=== PATIENT | female | born 1945 | race Caucasian/White ===

== ENCOUNTER 2023-02-24 11:30 | Outpatient (OUT) | payer MEDICARE, SELFPAY ==
--- NOTE | 2023-02-24 11:34 | XR_ITS ---
The [address] [address] Patient Name: YORDY DREW MRN: [id number] date: 1945 Sex: F Assigned Patient Location: [facility] Current Patient Location: [facility] Accession/Order Number: [id number] Exam Date: 02/24/2023 11:55 Report Date: 02/24/2023 12:24 At the request of: LITA HANSEN Procedure: XR DEXA axial skeleton DEXA bone density study CLINICAL: 77 years Female. Evaluate bone mineral density. The bone density study was assessed by dual-energy x-ray absorptiometry. Areas examined in AP projection. The test results are expressed in T-Score, which is used for diagnosis for osteoporosis, and reflects the standard deviations from the mean peak bone mineral density in young adults. Additional information regarding the Z-Score reflects the standard deviations from the mean peak bone mineral density for age- and gender-matched subjects. Lumbar Spine (L1-L4): BMD (gm/cm2): 1.129 T-Score: -0.4 Left Hip (total): BMD (gm/cm2): 0.897 T-Score: -0.9 Left Hip (Neck): BMD (gm/cm2): 0.841 T-Score: -1.4 XR/XR DEXA axial skeleton IMPRESSION: 1. Bone mineral density by WHO criteria: Osteopenia. Fracture risk increased. REFERENCE: In postmenopausal women and males 50 or over, comparison of the measured bone mineral density with the average value in young normal subjects (the T-Score) has been found to be useful in assessing fracture risk. Fracture risk approximately doubles for each 1.0 standard deviation (SD) that the individuals hip or spine bone mineral density is below the average value of young normal subjects. The World Health Organization (WHO) has provided the following definitions: 1. Normal: T-Score within one standard deviation of young adult mean value (T-Score at or above -1.0). 2. Osteopenia (low bone mass): T-Score more than one standard deviation below the young adult mean but less than 2.5 standard deviations below the young adult mean (T-Score between -1.0 and -2.5). 3. Osteoporosis: T-Score at or more than 2.5 standard deviations below the young adult mean (T-Score at or less than -2.5). 4. Severe Osteoporosis (established osteoporosis): T-Score more than 2.5 standard deviations below young adult and one or more fragility fracture (T-Score less than -2.5 plus fragility fractures). Electronically authenticated by: BARBARA PETERSEN Date: 02/24/2023 12:24
== END 2023-02-24 11:31 | disposition home or self-care (01) ==
LOC: RAD 11:30
PROVIDERS: PCP Family Medicine; Visit Provider Internal Medicine Rheumatology
DX: M81.0 Age-related osteoporosis without current pathological fracture (principal)
CPT/HCPCS: 77080

== ENCOUNTER 2023-03-07 13:09 | Outpatient (OUT) | payer MEDICARE, SELFPAY ==
[2023-03-07 13:36] LABS: Basophils Percent Auto 0.8 % (0.2-2.0); Eosinophils Absolute Auto 0.1 10^3/uL (0.0-0.7); Eosinophils Percent Auto 2.6 % (0.9-7.0); Hematocrit 38.5 % (36.0-48.0); Hemoglobin 12.8 g/dL (12.0-16.0); Immature Granulocytes Abs Auto 0.01 10^3/uL (0.00-0.03); Immature Granulocytes Pct Auto 0.3 % (0.0-0.5); Lymphocytes Absolute Auto 1.1 10^3/uL (1.2-3.8); Lymphocytes Percent Auto 27.9 % (20.5-60.0); Mean Corpuscular HGB Conc 33.2 g/dL (29.9-35.2); Mean Corpuscular Hemoglobin 30.1 pg (26.7-34.0); Mean Corpuscular Volume 90.6 fL (81.0-99.0); Mean Platelet Volume 9.3 fL (9.5-13.5); Monocytes Absolute Auto 0.4 10^3/uL (0.3-0.8); Monocytes Percent Auto 10.4 % (1.7-12.0); Neutrophils Absolute Auto 2.2 10^3/uL (1.4-6.5); Platelet Count 267 10^3/uL (150-450); Red Blood Count 4.25 10^6/uL (4.20-5.40); Red Cell Distribution Width 12.2 % (11.0-15.0); White Blood Count 3.8 10^3/uL (4.0-11.0)
[2023-03-07 13:55] LABS: Alanine Aminotransferase 16 U/L (14-59); Albumin Globulin Ratio 0.9; Albumin Level 3.4 g/dL (3.4-5.0); Alkaline Phosphatase 65 U/L (46-116); Aspartate Amino Transferase 20 U/L (15-37); BUN Creatinine Ratio 15.5; Bilirubin Total 0.6 mg/dL (0.2-1.0); Calcium 8.9 mg/dL (8.5-10.1); Carbon Dioxide 29.8 mmol/L (21.0-32.0); Chloride 105 mmol/L (98-107); Estimated GFR (African America >60 (>=60); Estimated GFR (Non-African Ame >60 (>=60); Globulin 3.6 g/dL; Glucose 103 mg/dL (74-106); Potassium 3.8 mmol/L (3.5-5.1); Sodium 141 mmol/L (136-145)
== END 2023-03-07 13:10 | disposition home or self-care (01) ==
PROVIDERS: PCP Family Medicine
DX: M15.0 Primary generalized (osteo)arthritis (principal); M81.0 Age-related osteoporosis without current pathological fracture; Z79.899 Other long term (current) drug therapy
CPT/HCPCS: 36415; 80053; 85025

== ENCOUNTER 2023-06-06 15:21 | Outpatient (OUT) | payer MEDICARE, SELFPAY ==
--- NOTE | 2023-06-06 15:24 | MM_ITS ---
Patient Name: YORDY DREW MR#: [id number] : 1945 Exam Date: 06/06/2023 Ordering Doctor: DR Eric Porter . RADIOLOGY REPORT PROCEDURE: MM TOMOSYNTHESIS SCREENING BI COMPARISON: MG MAMM SCREEN 3D KRISTINA CAD, 05/11/2022. MG MAMM SCREEN 3D KRISTINA CAD, 09/30/2020. MG MAMM LT DIAG FU, 09/13/2019. MG MAMM KRISTINA SCRN W CAD DIG, 02/21/2013. INDICATIONS: Screening Calculator Name NCI Breast Cancer Risk Assessment Tool 5 Year Breast Cancer Risk 3.10% Lifetime Breast Cancer Risk 5.90% Personal Breast Cancer No Personal Ovarian Cancer No Treatments None Family Cancers Mother with breast cancer at age 80. LOCATION: The [facility] BREAST COMPOSITION: Scattered areas fibroglandular density. FINDINGS: DIAGNOSTIC CATEGORY 1--NEGATIVE. RIGHT BREAST: No significant suspicious finding. No significant change has occurred. LEFT BREAST: No significant suspicious finding. No significant change has occurred. RECOMMENDATIONS: ROUTINE MAMMOGRAM AND CLINICAL EVALUATION IN 12 MONTHS. PLEASE NOTE: A NORMAL MAMMOGRAM DOES NOT EXCLUDE THE POSSIBILITY OF BREAST CANCER. A CLINICALLY SUSPICIOUS PALPABLE LUMP SHOULD BE BIOPSIED. Dictated by: Robbie Hoskins M.D. on 06/07/2023 at 12:50 Approved by: Robbie Hoskins M.D. on 06/07/2023 at 13:00
== END 2023-06-06 15:22 | disposition home or self-care (01) ==
LOC: MAMMO 15:21
PROVIDERS: PCP Family Medicine; Visit Provider Family Medicine
DX: Z12.31 Encounter for screening mammogram for malignant neoplasm of breast (principal); Z80.3 Family history of malignant neoplasm of breast
CPT/HCPCS: 77063; 77067

== ENCOUNTER 2023-06-09 09:20 | Outpatient (OUT) | payer MEDICARE, SELFPAY ==
[2023-06-09 09:49] LABS: Basophils Percent Auto 1.1 % (0.2-2.0); Eosinophils Absolute Auto 0.2 10^3/uL (0.0-0.7); Eosinophils Percent Auto 6.4 % (0.9-7.0); Hematocrit 38.1 % (36.0-48.0); Hemoglobin 12.3 g/dL (12.0-16.0); Immature Granulocytes Abs Auto 0.01 10^3/uL (0.00-0.03); Immature Granulocytes Pct Auto 0.3 % (0.0-0.5); Lymphocytes Percent Auto 27.5 % (20.5-60.0); Mean Corpuscular HGB Conc 32.3 g/dL (29.9-35.2); Mean Corpuscular Hemoglobin 29.6 pg (26.7-34.0); Mean Corpuscular Volume 91.8 fL (81.0-99.0); Mean Platelet Volume 9.5 fL (9.5-13.5); Monocytes Absolute Auto 0.4 10^3/uL (0.3-0.8); Monocytes Percent Auto 11.2 % (1.7-12.0); Neutrophils Absolute Auto 1.9 10^3/uL (1.4-6.5); Neutrophils Percent Auto 53.5 % (43.0-75.0); Platelet Count 241 10^3/uL (150-450); Red Blood Count 4.15 10^6/uL (4.20-5.40); Red Cell Distribution Width 11.9 % (11.0-15.0); White Blood Count 3.6 10^3/uL (4.0-11.0)
[2023-06-09 10:14] LABS: Estimated Average Glucose 108 mg/dL; Glycohemoglobin A1C 5.4 % (4.5-6.2)
[2023-06-09 10:18] LABS: Alanine Aminotransferase 23 U/L (14-59); Albumin Globulin Ratio 0.9; Albumin Level 3.2 g/dL (3.4-5.0); Alkaline Phosphatase 61 U/L (46-116); Anion Gap 8.3; Aspartate Amino Transferase 20 U/L (15-37); BUN Creatinine Ratio 19.3; Bilirubin Total 0.5 mg/dL (0.2-1.0); Calcium 8.8 mg/dL (8.5-10.1); Carbon Dioxide 30.7 mmol/L (21.0-32.0); Chloride 102 mmol/L (98-107); Chol HDL Ratio 2.5; Cholesterol 180 mg/dL (<=200); Estimated GFR (African America >60 (>=60); Estimated GFR (Non-African Ame >60 (>=60); Free T3 2.47 pg/mL (2.18-3.98); Globulin 3.5 g/dL; Glucose 98 mg/dL (74-106); HDL Cholesterol 71 mg/dL (40-60); Sodium 137 mmol/L (136-145); Total Protein 6.7 g/dL (6.4-8.2); Triglycerides 79 mg/dL (<=150); VLDL CHOLESTEROL 15.8 mg/dL
== END 2023-06-09 09:21 | disposition home or self-care (01) ==
LOC: LAB 09:21
PROVIDERS: PCP Family Medicine; Visit Provider Family Medicine
DX: E78.00 Pure hypercholesterolemia, unspecified (principal); E03.9 Hypothyroidism, unspecified; G47.00 Insomnia, unspecified; R73.09 Other abnormal glucose; D64.9 Anemia, unspecified; E55.9 Vitamin D deficiency, unspecified; M15.0 Primary generalized (osteo)arthritis; M81.0 Age-related osteoporosis without current pathological fracture; Z79.899 Other long term (current) drug therapy
CPT/HCPCS: 36415; 80053; 80061; 82306; 83036; 83540; 84436; 84443; 84481; 85025

== ENCOUNTER 2023-09-01 09:08 | Outpatient (OUT) | payer MEDICARE, SELFPAY ==
--- OUTSIDE RECORDS SUMMARY | 2023-09-01 09:17 | XMS_ITS | CCD ---
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 Name Role Phone Manoj Forbes Unavailable Sydney Erickson II Unavailable MD Gisella Porter Primary Care Provider [phone] MD Sydney Erickson II Attending Provider MD Gisella Porter Primary Care Provider [phone] MD Sydney Erickson II Attending Provider [phone] KENC, DR HOOVER Admitting Unavailable MISC, DR HOOVER Attending Unavailable HOY ., DR OBANDO Primary Care Unavailable MISC, DR HOOVER Consulting Unavailable HOY ., DR OBANDO Admitting Unavailable HOY ., DR OBANDO Attending Unavailable HOY ., DR OBANDO Primary Care Unavailable HOY ., DR OBANDO Consulting Unavailable YORDAN, DR VIDYA Strong Consulting Unavailable HOY ., DR OBANDO Admitting Unavailable HOY ., DR OBANDO Attending Unavailable HOY ., DR OBANDO Primary Care Unavailable HOY ., DR OBANDO Consulting Unavailable HOY ., DR OBANDO Admitting Unavailable HOY ., DR OBANDO Attending Unavailable HOY ., DR OBANDO Primary Care Unavailable HOY ., DR OBANDO Consulting Unavailable ALBERTO, DR FUNMILAYO Ramirez Consulting Unavailable TYRONE, DR LONDON Attending Unavailable MISC, DR HOOVER Admitting Unavailable MISC, DR HOOVER Primary Care Unavailable MISC, DR HOOVER Consulting Unavailable SYDNEY ERICKSON Admitting Unavailable SYDNEY ERICKSON Attending Unavailable PEDRO PABLO ., DR OBANDO Primary Care Unavailable SYDNEY ERICKSON Consulting Unavailable MISC, DR HOOVER Admitting Unavailable MISC, DR HOOVER Attending DR GISELLA Zarate Primary Care Unavailable [facility] [place]ing Unavailable MD Gisella Porter Primary Care Provider [phone] MD Manoj Forbes Attending Provider Daryl Austin Primary Care Provider UnavailFUNMILAYO Carrillo Attending Unavailable MD Ivette Taylor Attending Provider MD Gisella Porter Primary Care Provider [phone] MD Sydney Erickson II Attending Provider Georgina FREGOSO, [place] Attending Unavailabl Gisella Han Primary Care Unavailable Georgina FREGOSO, [place] Admitting UnavailGisella Tinajero Primary Care Unavailable Ivette Taylor Admitting Unavailable Ivette Taylor Attending Unavailable Georgina FREGOSO, [place] Attending UnavailSydney Dominguez II Admitting UnavailGisella Tinajero Primary Care Unavailable Sydney Erickson II Admitting Unavailjade Erickson II, [place] Attending UnavailGisella Tinajero Primary Care Unavailable Manoj Forbes Admitting Unavailable Manoj Forbes Attending Unavailable Gisella Porter Primary Care Unavailable Georgina FREGOSO, [place] Attending UnavailGisella Tinajero Primary Care Unavailable Sydney Erickson II Admitting UnavailIvette Treadwell Unavailable Allergies Allergy Classification Reported Allergen(s) Allergy Type Date of Onset Reaction(s) Facility (20 sources) Ciprofloxacin Drug Allergy 3 Rash, Unknown [facility] (20 sources) NITROFURANTOIN, MACROCRYSTALS / Nitrofurantoin, Monohydrate Drug Allergy 3 Other: See Comments, GI Upset [facility] (20 sources) Sulfamethoxazole / Trimethoprim Drug Allergy 3 Other: See Comments, Rash [facility] (3 sources) Ciprofloxacin; Translations: [Cipro] Drug Allergy 3 Unknown [facility] (3 sources) Sulfamethoxazole / Trimethoprim; Translations: [Bactrim] Drug Allergy 3 Unknown [facility] (6 sources) Nitrofurantoin; Translations: [nitrofurantoin] Drug Allergy 1 [facility] (6 sources) Sulfamethoxazole; Translations: [sulfamethoxazole] Drug Allergy 1 [facility] (6 sources) Trimethoprim; Translations: [trimethoprim] Drug Allergy 1 [facility] (1 source) Nitrofurantoin Drug Allergy 3 [facility] (1 source) Ciprofloxacin Drug Allergy 3 [facility] Medications Current Medications Medication Drug Class(es) Dates Sig (Normalized) Sig (Original) acetaminophen 500 mg oral tablet (5 sources) Start: 12-01-2021 take 2 tablets by mouth every eight hours for pain Acetaminophen 500 MG 2 tablets for pain Orally every 8 hrs for 30 days MED TO BED UPON DISCHARGE DOS: 12/21/2021 Nov, Active amitriptyline hydrochloride 50 mg oral tablet (20 sources) Tricyclic Antidepressant Start: 09-21-2022 take 50 mg by mouth once daily in the evening Amitriptyline Active 50 MG PO Every evening September 21, 2022 12:00am Start: 04-29-2021 End: 09-21-2022 take 50 mg by mouth once daily at bedtime Amitriptyline Discontinued 50 MG PO Daily at bedtime April 29, 2021 12:00am September 21, 2022 10:01am Comment on above: Take 50 mg by mouth once daily. ascorbic acid 500 mg oral tablet (1 source) Vitamin C Start: 02-03-20 take 1 tablet by mouth every twenty-four hours Vitamin C 500 MG 1 tablet Orally Once a day for 14 day(s) Jan, Active celecoxib 200 mg oral capsule (8 sources) Nonsteroidal Anti-inflammatory Drug Start: 12-02-19 22 take 1 capsule by mouth every twelve hours Celecoxib 200 MG 1 capsule with food Orally Twice a day for 30 day(s) MED TO BED UPON DISCHARGE DOS: 12/21/2021 Nov, Active dicyclomine hydrochloride 20 mg oral tablet (20 sources) Anticholinergic Start: 01-13-20 15 take 1 tablet by mouth every twelve hours Dicyclomine HCl 20 mg 1 tablet Orally bid for 90 days Dec, Active Comment on above: Take 20 mg by mouth twice daily. docusate sodium 50 mg / sennosides, senior care 8.6 mg oral tablet (5 sources) Start: 12-02-19 take 2 tablets by mouth every twenty-four hours Senokot S 8.6-50 MG 2 tablets Orally Once a day for 30 day(s) MED TO BED UPON DISCHARGE DOS: 12/21/2021 Nov, Active etodolac 500 mg oral tablet (18 sources) Nonsteroidal Anti-inflammatory Drug Start: 04-29-20 take 500 mg by mouth twice daily Etodolac Active 500 MG PO Twice daily April 29, 2021 12:00am Start: 04-29-2021 take 500 mg by mouth once terrance y Etodolac Active 500 MG PO Daily April 29, 2021 12:00am ferrous sulfate 325 mg oral tablet (7 sources) Start: 02-02-2022 take 1 tablet by mouth every eight hours Iron 325 (65 Fe) MG 1 tablet Orally Three times a day for 30 day(s) Jan, Active levothyroxine sodium 0.112 mg oral tablet (20 sources) l-Thyroxi ne Start: 04-29-2021 take 112 ug by mouth once daily Levothyroxine Active 112 MCG PO Daily April 29, 2021 12:00am take 1 tablet by kathie th once daily in the morning Levothyroxine Sodium 112 MCG 1 tablet on an empty stomach in the morning Orally Once a day for 30 day(s) Active Comment on above: Take 112 mcg by mout h once daily. rosuvastatin calcium 5 mg oral tablet (20 sources) HMG-CoA Reductase Inhibitor Start: take 5 mg by mouth once daily at bedtime Rosuvastatin Active 5 MG PO Daily at bedtime April 29, 2021 12:00am Comment on above: Take 5 mg by mouth o nce daily. Tramadol & Dietary Manage Prod 50 MG (14 sources) Tramadol & Dieta ry Manage Prod 50 MG as directed Orally prn Active Tramadol & Dieta ry Manage Prod 50 MG as directed Orally Active Vitamin D3 1000 UNIT (14 sources) take 1 tablet by kathie th once daily Vitamin D3 1000 UNIT 1 tablet Orally Once a day for 30 day(s) Active Completed/Discontinued Medications Medication Drug Class(es) Dates Sig (Normalized) Sig (Original) aspirin 81 mg oral tablet (8 sources) Platelet Aggregation Inhibitor, Nonsteroidal Anti-inflammatory Drug Start: 12-01-2021 take 1 tablet by mouth twice daily Aspirin 81 MG 1 tablet Orally twice a day for 35 days MED TO BED UPON DISCHARGE DOS: 12/21/2021 Nov, Not-Taking cefadroxil 500 mg oral capsule (8 sources) Cephalosporin Antibacterial Start: 12-01-2021 take 1 capsule by mouth every twelve hours Cefadroxil 500 MG 1 tablet Orally every 12 hrs for 7 days MED TO BED UPON DISCHARGE DOS: 12/21/2021 Nov, Not-Taking cholecalciferol 0.125 mg oral tablet (6 sources) Vitamin D Start: 04-29-2021 take 1 tablet by mouth once daily cholecalciferol (VITAMIN D3) 5,000 unit tab Take 5,000 Units by mouth once daily. 0 04/29/2021 Active Start: 04-29-2021 take 1 tablet by kathie th once daily Cholecalciferol (Vitamin D3) (Vitamin D3) 125 mcg (5,000 unit) Tablet Active 125 MCG PO Daily April 29, 2021 12:00am Comment on above: Take 5,000 Units by mouth once daily. morphine sulfate 15 mg extended release oral tablet (8 sources) Opioid Agonist Start: 2 take 1 tablet by mouth every twelve hours for pain Morphine Sulfate ER 15 MG 1 tablet for breakthrough pain only Orally every 12 hrs for 5 days MED TO BED UPON DISCHARGE DOS: 12/21/2021 Nov, Not-Taking omeprazole 20 mg delayed release oral capsule (5 sources) Proton Pump Inhibitor Start: End: 2 take 20 mg by mouth once daily Omeprazole Discontinued 20 MG PO Daily April 29, 2021 12:00am December 07, 2021 1:17pm ondansetron 8 mg oral tablet (8 sources) Serotonin-3 Receptor Antagonist Start: 2 take 1 tablet by mouth three times daily as needed for nausea Ondansetron HCl 8 MG 1 tablet as needed for nausea Orally three times a day for 10 days MED TO BED UPON DISCHARGE DOS: 12/21/2021 Nov, Not-Taking oxyCODONE hydrochloride 5 mg oral tablet (8 sources) Opioid Agonist Start: 2 take 1 tablet by mouth every four hours as needed for pain oxyCODONE HCl 5 MG 1 tablet as needed for pain Orally every 4 hrs for 10 days MED TO BED UPON DISCHARGE DOS: 12/21/2021 Nov, Not-Taking polyethylene glycol 3350 [id number] mg powder for oral solution (8 sources) Osmotic Laxative Start: 2 MiraLax 17 GM 1 packet mixed with 8 ounces of fluid Orally Once a day for 7 days MED TO BED UPON DISCHARGE DOS: 12/21/2021 Nov, Not-Taking traMADol hydrochloride 50 mg oral tablet (18 sources) Opioid Agonist Start: 2 take 1 tablet by mouth every six hours as needed for pain traMADol HCl 50 MG 1 tablet as needed for pain Orally every 6 hrs for 10 days Dec, Not-Taking Start: 04-29-2021 End: 09-21-2022 take 50 mg by mouth twice daily Tramadol Discontinued 50 MG PO Twice daily April 29, 2021 12:00am September 21, 2022 10:01am triamcinolone acetonide 40 mg/ml injectable suspension (19 sources) Corticosteroid Start: 12-07-2022 Kenalog-40 Nov, 20 mg Start: 08-13-2021 Kenalog -40 mg Jul, 120 mg Problems Active Problems Problem Classification Problem Date Documented Da te Episodic/Chronic Deficiency and other anemia (1 source) Anemia, unspecified; Translations: [ANEMIA UNSPECIFIED] Onset: 06-11-2022 Episodic Deficiency and other anemia (3 sources) Iron deficiency anemia; Translations: [Iron deficiency anemia, unspecified] Episodic Diabetes mellitus without complication (1 source) Other abnormal glucose; Translations: [OTHER ABNORMAL GLUCOSE] Onset: 06-11-2022 Episodic Disorders of lipid metabolism (5 sources) Pure hypercholesterolemia, unspecified; Translations: [Hyperlipidemia, unspecified] Onset: 06-06-2022 Chronic Hemorrhoids (3 sources) Unspecified hemorrhoids; Translations: [Hemorrhoids] Onset: 10-27-2022 Episodic Nutritional deficiencies (1 source) Vitamin D deficiency, unspecified; Translations: [VITAMIN D DEFICIENCY UNSPECIFIED] Onset: 06-11-2022 Chronic Osteoarthritis (20 sources) Osteoarthritis of knee; Translations: [Unilateral primary osteoarthritis, left knee] Onset: 08-13-2021 Resolved: 02-02-2022 Chronic Osteoporosis (17 sources) Primary osteoporosis; Translations: [Age-related osteoporosis without current pathological fracture] Onset: 11-10-2021 Resolved: 02-02-2022 Chronic Other aftercare (6 sources) Patient encounter status; Translations: [Aftercare following joint replacement surgery] Chronic Other aftercare (5 sources) Other group home (current) drug therapy; Translations: [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 THERAPY] Onset: 11-10-2021 Resolved: 02-02-2022 Episodic Other bone disease and musculoskeletal deformities (1 source) Juvenile osteochondrosis of pelvis; 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] Onset: 08-28-2022 Chronic Other connective tissue disease (14 sources) History of repair of hip joint; Translations: [Presence of right artificial hip joint] Chronic Other connective tissue disease (13 sources) History of total replacement of right hip joint; Translations: [Presence of right artificial hip joint] Chronic Other connective tissue disease (1 source) Presence of right artificial hip joint Onset: 08-13-2021 Resolved: 08-13-2021 Chronic Other connective tissue disease (8 sources) History of right total knee replacement; Translations: [Presence of right artificial knee joint] Chronic Other connective tissue disease (2 sources) Presence of right artificial knee joint Onset: 01-05-2022 Resolved: 02-02-2022 Chronic Other connective tissue disease (6 sources) Artificial knee joint present; Translations: [Presence of right artificial knee joint] Chronic Other connective tissue disease (2 sources) Trigger finger, left ring finger Episodic Other connective tissue disease (2 sources) Pain in left hand Episodic Other gastrointestinal disorders (14 sources) Irritable bowel syndrome; Translations: [Irritable bowel syndrome without diarrhea] Chronic Other gastrointestinal disorders (5 sources) Irritable bowel syndrome without diarrhea; Translations: [IBS (irritable bowel syndrome) K58.9] Onset: 04-20-2021 Resolved: 04-20-2021 Chronic Other screening for suspected conditions (not mental disorders or infectious disease) (19 sources) Patient encounter status; Translations: [Encounter for screening for malignant neoplasm of colon] Onset: 04-20-2021 Resolved: 04-20-2021 Episodic Other skin disorders (4 sources) Localized swelling, mass and lump, right upper limb; Translations: [LOC SWELL MASS LUMP RT UPPER LIMB] Onset: 07-06-2022 Episodic Thyroid disorders (1 source) Hypothyroidism, unspecified; Translations: [HYPOTHYROIDISM UNSPECIFIED] Onset: 06-11-2022 Chronic Unclassified (1 source) Pain in left hand; Translations: [Pain in left hand] Onset: 12-07-2022 Unclassified (1 source) Hemorrhage of anus and rectum; Translations: [Hemorrhage of anus and rectum] Onset: 09-21-2022 Unclassified (1 source) Presence of right artificial knee joint; Translations: [Presence of right artificial knee joint] Onset: 03-16-2022 Unclassified (1 source) Aftercare following joint replacement surgery; Translations: [Aftercare following joint replacement surgery] Onset: 02-23-2022 Past or Other Problems Problem Classification Problem Date Documented Da te Episodic/Chronic Other connective tissue disease (1 source) Trochanteric bursitis, right hip Onset: 02-02-2022 Resolved: 02-02-2022 Episodic Residual codes; unclassified (1 source) Family history of malignant neoplasm of breast; Translations: [FAMILY HX MALIG NEOPLASM OF BREAST] Onset: 05-14-2022 Episodic Results Test Name Value Interpretation Reference Range Facility XR knee RT 2Von 12-23-2022 XR knee RT 2V [facility] [place] [address] [place] [address] XRay Report Signed Patient: Yordy Yeboah MR#: [id number] : 1945 Acct:[id number] Age/Sex: 77 / F ADM Date: 12/23/22 Loc: [facility] Room: Type: [facility] Attending Dr: Sydney Erickson II, MD Copies to: Sydney Erickson MD Ordering Provider: Sydney Erickson MD Date of Service: 12/23/22 XR/XR knee RT 2V: History of total right knee replacement RIGHT KNEE - 2 views CLINICAL HISTORY: Follow-up right TKA COMPARISON: Right knee 03/16/2022 FINDINGS: Right knee prosthesis without radiographic complication. No acute bony process. XR/XR knee RT 2V IMPRESSION: NO EVIDENCE OF HARDWARE COMPLICATION. Impression dictated by: Migue Groves Jr., D.OSun12/23/2022 2:03 PM Dictation Location: RADIO-PC-08 Transcribed By: AMEENA 12/23/22 1403 Dictated By: Migue Groves Jr, DO 12/23/22 1400 Signed By: 12/23/22 140 [facility] XR hand LT min 3V*on 023 XR hand LT min 3V* [facility] [place] [address] XRay Report Signed Patient: Yordy Yeboah MR#: [id number] : 1945 Acct:[id number] Age/Sex: 77 / F ADM Date: 12/07/22 Loc: [facility] Room: Type: [facility] Attending Dr: Ivette Taylor MD Copies to: Ivette Taylor MD Ordering Provider: Ivette Taylor MD Date of Service: 12/07/22 XR/XR hand LT min 3V*: LEFT HAND PAIN 4 views LEFT hand plain film COMPARISON: None HISTORY: LEFT hand pain for months. Pain in the 1st carpometacarpal articulation ACUTE FINDINGS: None DEGENERATIVE CHANGE: Extensive 1st carpometacarpal degeneration includes joint space narrowing subarticular sclerotic and cystic changes marginal spurring and mild subluxation. Additional extensive interphalangeal degenerative change with degenerative subluxation. Impaction of the ulna with the lunate. SOFT TISSUE FINDINGS: Unremarkable JOINT EFFUSION: None POSTOP CHANGES: None BONY MINERALIZATION: Diffuse osteopenia XR/XR hand LT min 3V* IMPRESSION: Extensive 1st carpometacarpal degeneration. Extensive interphalangeal degeneration with subluxation. Impression dictated by: Lg Lua M.D.12/07/2022 1:35 PM Dictation Location: RADIO-PC-01 Transcribed By: AMEENA 12/07/22 1335 Dictated By: Lg Lua DO 12/07/22 1331 Signed By: 12/07/22 133 [facility] CNOVon 10-27-2022 CNOV Office Visit (CORSAV) ---- YORDY YEBOAH ([id number]) 1945 F Date Time Provider Department 10/27/22 2:00 PM FUNMILAYO ODELL During your visit today, we recorded the following information about you: Pulse Blood pressure 98/minute 137/74 Maribell Joiner RN 10/27/2022 2:00 PM Signed What is the reason for your visit today? New patient consult for hemorrhoids Who is your referring physician? Are you having poor oral intake? NO Have you had unintentional weight loss of 15 lbs/7 Kg in the last 3-6 months? NO Bowels: soft /with occasional bleeding Wound: none Temperature: No Drains: No Funmilayo Odell MD 10/27/2022 2:35 PM Signed COLORECTAL SURGERY October 27, 2022 Yordy Yeboah 77 year old This consult was requested by Dr. Manoj Forbes and my final recommendations will be communicated to the requesting health care provider by way of the shared medical record for internal providers or letter via the [employer] for external providers. Chief Complaint: hemorrhoids History of Present Illness: Yordy Yeboah is a 77 year old female presents today for evaluation of hemorrhoids. Sigmoidoscopy 09/21/22 - Dr. Forbes Findings: - There is small hypervascular appearing internal hemorrhoids extending down below the dentate line, comprising an external component as well. She reports some intermittent painless rectal bleeding. Flexible sigmoidoscopy showed hemorrhoids. No issues with bowel movements No past medical history on file. No past surgical history on file. No current outpatient medications on file. No current facility-administer ed medications for this visit. ALLERGIES Not on File No family history on file. Physical Exam: BP 137/74 (BP Site: Left Arm, BP Position: Sitting, BP Cuff Size: Regular Adult) Pulse 98 SpO2 96% General Appearance: Well appearing, alert, in no acute distress, well-hydrated, well nourished. Anorectal: External exam reveals no lesions. 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 After digital exam with a lubricated finger, the scope was easily inserted. Moderately enlarged right anterior and left lateral internal hemorrhoids were noted. Otherwise normal mucosa was noted. Anoscopy completed. Preoperative diagnosis: First to second degree hemorrhoids. Procedure: Anoscopy, rubber band ligation of hemorrhoids. Postoperative diagnosis: Same Indications: This 77 year old was found to have internal hemorrhoids that were not suitable for conservative management. Description of procedure: The patient was placed in the chest-knee position. A time out was completed. A digital rectal exam was performed. A lubricated anoscope was inserted into the anal canal. The three hemorrhoidal pedicles were identified and the redundant rectal mucosa just above the largest internal hemorrhoids (left lateral, right anterior) suctioned. Using the applicator, 2 rubber bands were placed around the tissue and were noted to be in good position. The mucosa was inspected for bleeding prior to withdrawal of the anoscope. The patient tolerated the procedure well with no excessive pain. Assessment Assessment and Plan: Yordy Yeboah is a 77 year old female status post rubber band ligation of enlarged left lateral and right anterior internal hemorrhoids. We talked about psyllium fiber supplementation and increasing water intake. She will return to see me as needed Medical Decision Making: Data Reviewed: Tests AND Documents Reviewed/ordered: Review of prior notes from Dr. Forbes Review of Labs: CBC, BMP Review of Procedures / Tests: Flexible Sigmoidoscopy Risk of morbidity, mortality and/or complications of treatment plan: moderate Funmilayo Odell MD Colorectal Surgery Allergies As of Date: 10/27/2022 Noted Allergy Reaction CIPROFLOXACIN 05/31/2013 2 - Rash 16 - Unknown NITROFURANTOIN MONOHYD/M-CRYST 10/27/2022 14 - Other: See Comments 8 - GI Upset SULFAMETHOXAZOLE-TR IMETHOPRIM 05/31/2013 14 - Other: See Comments 2 - Rash Date Reviewed: 10/27/2022 Reviewed by: Funmilayo Odell MD - Fully Assessed Reason for Visit: New Patient [[id number]] Cmt: Consult for hemorrhoids Primary Visit Diagnosis:Hemorrhoi ds, unspecified hemorrhoid type [K64.9] Prescriptions as of 10/27/2022 - amitriptyline (ELAVIL) 50 mg tablet Take 50 mg by mouth once daily. - levothyroxine (SYNTHROID) 112 mcg tablet Take 112 mcg by mouth once daily. - dicyclomine (BENTYL) 20 mg tablet Take 20 mg by mouth twice daily. - rosuvastatin (CRESTOR) 5 mg tablet Take 5 mg by mouth once daily. - cholecalciferol (VITAMIN D3) 5,000 unit tab Take 5,000 Units by mouth once daily. Problem List As Of Date: 10/27/2022 (None) Visit Notes: >> Maribell Joiner RN Jailyn October 27, (more content not included)... Normal [facility] CBC AUTO DIFFon 08-23-2022 BASO # 0.0 103/ul Normal 0.0-0.1 [facility] Comment on above: Performed By: #### I WIL VITAD #### [facility] [address] [place] [address] Dr. Ryann Pearce Basophils/100 WBC (Bld) 1.0 % Normal 0.2-2.0 [facility] Comment on above: Performed By: #### Mike DE LA TORRE VITAD #### [facility] [address] [place] [address] Dr. Ryann Pearce EO # 0.2 103/ul Normal 0.0-0.7 [facility] Comment on above: Performed By: #### Mike DE LA TORRE VITAD #### [facility] [address] [place] [address] Dr. Ryann Pearce Eosinophils/100 WBC (Bld) 3.8 % Normal 0.9-7.0 [facility] Comment on above: Performed By: #### Mike DE LA TORRE VITAD #### [facility] [address] [place] [address] Dr. Ryann Pearce Erythrocyte distribution width (RBC) [Ratio] 12.1 % Normal 11.0-15.0 [facility] Comment on above: Performed By: #### Mike DE LA TORRE VITAD #### [facility] [address] [place] [address] Dr. Ryann Pearce Hematocrit (Bld) [Volume fraction] 35.5 % Critically low 36.0-48.0 [facility] Comment on above: Performed By: #### Mike DE LA TORRE VITAD #### [facility] [address] [place] [address] Dr. Ryann Pearce Hemoglobin (Bld) [Mass/Vol] 11.7 g/dL Critically low 12.0-16.0 [facility] Comment on above: Performed By: #### Mike DE LA TORRE, VITAD #### [facility] [address] [place] [address] Dr. Ryann Pearce IG # 0.01 10e3/ul Normal 0.00-0.03 [facility] Comment on above: Performed By: #### Mike DE LA TORRE, VITAD #### [facility] [address] [place] [address] Dr. Ryann Pearce IG % 0.3 % Normal 0.0-0.5 [facility] Comment on above: Performed By: #### Mike DE LA TORRE, VITAD #### [facility] [address] [place] [address] Dr. Ryann Pearce LYMPH # 1.2 103/ul Normal 1.2-3.8 [facility] Comment on above: Performed By: #### Mike DE LA TORRE, VITAD #### [facility] [address] [place] [address] Dr. Ryann Pearce Lymphocytes/100 WBC (Bld) 31.5 % Normal 20.5-60.0 [facility] Comment on above: Performed By: #### Mike DE LA TORRE, VITAD #### [facility] [address] [place] [address] Dr. Ryann Pearce MANUAL DIFF REQ NO Normal The [facility] Comment on above: Performed By: #### Mike DE LA TORRE VITAD #### [facility] [address] [place] [address] Dr. Ryann Pearce MCH (RBC) [Entitic mass] 29.5 pg Normal 26.7-34.0 [facility] Comment on above: Performed By: #### I WIL, VITAD #### [facility] [address] [place] [address] Dr. Ryann Pearce MCHC (RBC) [Mass/Vol] 33.0 g/dL Normal 29.9-35.2 [facility] Comment on above: Performed By: #### Mike DE LA TORRE, VITAD #### [facility] [address] [place] [address] Dr. Ryann Pearce MCV (RBC) [Entitic vol] 89.6 fL Normal 81.0-99.0 [facility] Comment on above: Performed By: #### I WIL, VITAD #### [facility] [address] [place] [address] Dr. Rynan Pearce MONO # 0.5 103/ul Normal 0.3-0.8 [facility] Comment on above: Performed By: #### I WIL, VITAD #### [facility] [address] [place] [address] Dr. Ryann Pearce Monocytes/100 WBC (Bld) 13.2 % Critically high 1.7-12.0 [facility] Comment on above: Performed By: #### I WIL, VITAD #### [facility] [address] [place] [address] Dr. Ryann Pearce NEUT # 2.0 103/ul Normal 1.4-6.5 [facility] Comment on above: Performed By: #### Mike DE LA TORRE, VITAD #### [facility] [address] [place] [address] Dr. Ryann Pearce Neutrophils/100 WBC (Bld) 50.2 % Normal 43.0-75.0 [facility] Comment on above: Performed By: #### Mike DE LA TORRE, VITAD #### [facility] [address] [place] [address] Dr. Ryann Pearce Platelet mean volume (Bld) [Entitic vol] 8.9 fL Critically low 9.5-13.5 [facility] Comment on above: Performed By: #### I WIL, VITAD #### [facility] [address] [place] [address] Dr. Ryann Pearce PLT 253 103/ul Normal 150-450 [facility] Comment on above: Performed By: #### I WIL, VITAD #### [facility] [address] [place] [address] Dr. Ryann Pearce RBC 3.96 106/ul Critically low 4.20-5.40 [facility] Comment on above: Performed By: #### I WIL, VITAD #### [facility] [address] [address] [address] Ryann Pearce WBC 3.9 103/ul Critically low 4.0-11.0 [facility] Comment on above: Performed By: #### I WIL, VITAD #### [facility] [address] [address] [address] Ryann Pearce PROF 14(COMP METB)on 023 Albumin [Mass/Vol] 3.3 g/dL Critically low 3.4-5.0 [facility] Comment on above: Performed By: #### I WIL, VITAD #### [facility] [address] [place] [address] Dr. Ryann Pearce Albumin/Globulin [Mass ratio] 1.0 {ratio} Normal [facility] Comment on above: Performed By: #### I WIL, VITAD #### [facility] [address] [place] [address] Dr. Ryann Pearce ALP [Catalytic activity/Vol] 65 U/L Normal 46-116 [facility] Comment on above: Performed By: #### I WIL, VITAD #### [facility] [address] [place] [address] Dr. Ryann Pearce ALT [Catalytic activity/Vol] 30 U/L Normal 14-59 [facility] Comment on above: Performed By: #### I WIL, VITAD #### [facility] [address] [address] [address] Ryann Pearce Anion gap [Moles/Vol] 10.0 mmol/L Normal [facility] Comment on above: Performed By: #### I WIL, VITAD #### [facility] [address] [place] [address] Dr. Ryann Pearce AST [Catalytic activity/Vol] 26 U/L Normal 15-37 [facility] Comment on above: Performed By: #### I WIL, VITAD #### [facility] [address] [place] [address] Dr. Ryann Pearce Bilirubin [Mass/Vol] 0.4 mg/dL Normal 0.2-1.0 [facility] Comment on above: Performed By: #### I WIL, VITAD #### [facility] [address] [place] [address] Dr. Ryann Pearce Calcium [Mass/Vol] 8.8 mg/dL Normal 8.5-10.1 [facility] Comment on above: Performed By: #### I WIL, VITAD #### [facility] [address] [place] [address] Dr. Ryann Pearce Chloride [Moles/Vol] 105 mmol/L Normal 98-107 [facility] Comment on above: Performed By: #### I WIL, VITAD #### [facility] [address] [place] [address] Dr. Ryann Pearce CO2 [Moles/Vol] 30.1 mmol/L Normal 21.0-32.[address] [facility] Comment on above: Performed By: #### Mike DE LA TORRE, VITAD #### [facility] [address] [place] [address] Dr. Ryann Pearce Creatinine [Mass/Vol] 0.90 mg/dL Normal 0.55-1.02 [facility] Comment on above: Performed By: #### I WIL, VITAD #### [facility] [address] [place] [address] Dr. Ryann Pearce EGFR-AF ARGENTINE >60 Normal >=60 The [facility] Comment on above: Performed By: #### I WIL, VITAD #### [facility] [address] [place] [address] Dr. Ryann Pearce EGFR-NON AF ARGENTINE >60 Normal >=60 [facility] Comment on above: Performed By: #### I WIL, VITAD #### [facility] [address] [place] [address] Dr. Ryann Pearce Globulin (S) [Mass/Vol] 3.3 g/dL Normal [facility] Comment on above: Performed By: #### I WIL, VITAD #### [facility] [address] [place] [address] Dr. Ryann Pearce Glucose [Mass/Vol] 100 mg/dL Normal 74-106 [facility] Comment on above: Performed By: #### I WIL, VITAD #### [facility] [address] [place] [address] Dr. Ryann Pearce Potassium [Moles/Vol] 4.1 mmol/L Normal 3.5-5.1 [facility] Comment on above: Performed By: #### Mike DE LA TORRE, VITAD #### [facility] [address] [place] [address] Dr. Ryann Pearce Protein [Mass/Vol] 6.6 g/dL Normal 6.4-8.2 [facility] Comment on above: Performed By: #### Mike DE LA TORRE, VITAD #### [facility] [address] [place] [address] Dr. Ryann Pearce Sodium [Moles/Vol] 141 mmol/L Normal 136-145 [facility] Comment on above: Performed By: #### Mike DE LA TORRE VITAD #### [facility] [address] [place] [address] Dr. Ryann Pearce Urea nitrogen [Mass/Vol] 13.0 mg/dL Normal 7.0-18.0 [facility] Comment on above: Performed By: #### Mike DE LA TORRE VITAD #### [facility] [address] [place] [address] Dr. Ryann Pearce Urea nitrogen/Creatinine [Mass ratio] 14.4 mg/mg Normal [facility] Comment on above: Performed By: #### Mike DE LA TORRE VITAD #### [facility] [address] [place] [address] Dr. Ryann Pearce CBC AUTO DIFFon 06-06-2022 BASO # 0.0 103/ul Normal 0.0-0.1 [facility] Comment on above: Performed By: #### Mike DE LA TORRE VITAD #### [facility] [address] [place] [address] Dr. Ryann Pearce Basophils/100 WBC (Bld) 1.2 % Normal 0.2-2.0 [facility] Comment on above: Performed By: #### Mike DE LA TORRE, VITAD #### [facility] [address] [place] [address] Dr. Ryann Pearce EO # 0.1 103/ul Normal 0.0-0.7 [facility] Comment on above: Performed By: #### I WIL, VITAD #### [facility] [address] [place] [address] Dr. Ryann Pearce Eosinophils/100 WBC (Bld) 3.3 % Normal 0.9-7.0 [facility] Comment on above: Performed By: #### Mike DE LA TORRE, VITAD #### [facility] [address] [place] [address] Dr. Ryann Pearce Erythrocyte distribution width (RBC) [Ratio] 12.5 % Normal 11.0-15.0 [facility] Comment on above: Performed By: #### Mike DE LA TORRE VITAD #### [facility] [address] [place] [address] Dr. Ryann Pearce Hematocrit (Bld) [Volume fraction] 38.7 % Normal 36.0-48.0 [facility] Comment on above: Performed By: #### Mike DE LA TORRE VITAD #### [facility] [address] [place] [address] Dr. Ryann Pearce Hemoglobin (Bld) [Mass/Vol] 12.8 g/dL Normal 12.0-16.0 [facility] Comment on above: Performed By: #### Mike DE LA TORRE VITAD #### [facility] [address] [place] [address] Dr. Ryann Pearce IG # 0.01 10e3/ul Normal 0.00-0.03 [facility] Comment on above: Performed By: #### Mike DE LA TORRE VITAD #### [facility] [address] [place] [address] Dr. Ryann Pearce IG % 0.3 % Normal 0.0-0.5 [facility] Comment on above: Performed By: #### Mike DE LA TORRE VITAD #### [facility] [address] [place] [address] Dr. Ryann Pearce LYMPH # 1.1 103/ul Critically low 1.2-3.8 [facility] Comment on above: Performed By: #### I WIL, VITAD #### [facility] [address] [place] [address] Dr. Ryann Pearce Lymphocytes/100 WBC (Bld) 32.0 % Normal 20.5-60.0 [facility] Comment on above: Performed By: #### I WIL, VITAD #### [facility] [address] [place] [address] Dr. Ryann Pearce MANUAL DIFF REQ NO Normal [facility] Comment on above: Performed By: #### I WIL, VITAD #### [facility] [address] [place] [address] Dr. Ryann Pearce MCH (RBC) [Entitic mass] 29.6 pg Normal 26.7-34.0 [facility] Comment on above: Performed By: #### I WIL, VITAD #### [facility] [address] [place] [address] Dr. Ryann Pearce MCHC (RBC) [Mass/Vol] 33.1 g/dL Normal 29.9-35.2 [facility] Comment on above: Performed By: #### I WIL, VITAD #### [facility] [address] [place] [address] Dr. Ryann Pearce MCV (RBC) [Entitic vol] 89.4 fL Normal 81.0-99.0 [facility] Comment on above: Performed By: #### I WIL, VITAD #### [facility] [address] [place] [address] Dr. Ryann Pearce MONO # 0.4 103/ul Normal 0.3-0.8 [facility] Comment on above: Performed By: #### I WIL, VITAD #### [facility] [address] [place] [address] Dr. Ryann Pearce Monocytes/100 WBC (Bld) 11.1 % Normal 1.7-12.0 [facility] Comment on above: Performed By: #### I WIL, VITAD #### [facility] [address] [place] [address] Dr. Ryann Pearce NEUT # 1.7 103/ul Normal 1.4-6.5 [facility] Comment on above: Performed By: #### I WIL, VITAD #### [facility] [address] [address] [address] Ryann Pearce Neutrophils/100 WBC (Bld) 52.1 % Normal 43.0-75.0 [facility] Comment on above: Performed By: #### I WIL, VITAD #### [facility] [address] [address] [address] Ryann Pearce Platelet mean volume (Bld) [Entitic vol] 9.3 fL Critically low 9.5-13.5 [facility] Comment on above: Performed By: #### I WIL, VITAD #### [facility] [address] [address] [address] Ryann Pearce PLT 255 103/ul Normal 150-450 [facility] Comment on above: Performed By: #### I WIL VITAD #### [facility] [address] [place] [address] Dr. Ryann Pearce RBC 4.33 106/ul Normal 4.20-5.40 [facility] Comment on above: Performed By: #### I WIL VITAD #### [facility] [address] [address] [address] Ryann Pearce WBC 3.3 103/ul Critically low 4.0-11.0 [facility] Comment on above: Performed By: #### Mike DE LA TORRE VITAD #### [facility] [address] [address] [address] Ryann Pearce FREE THYROXINE INDEX T7on FTI 2.96 Normal 1.30-4.50 [facility] Comment on above: Performed By: #### T SH, LIPID, T7, CMP #### [facility] [address] [address] [address] Ryann Pearce T3U 34.0 % Normal 30.0-39.0 [facility] Comment on above: Performed By: #### T SH, LIPID, T7, CMP #### [facility] [address] [address] [address] Ryann Pearce T4 [Mass/Vol] 8.70 ug/dL Normal 4.80-13.90 [facility] Comment on above: Performed By: #### T SH, LIPID, T7, CMP #### [facility] [address] [address] [address] Ryann Pearce GLYCOHEMOGLOBIN A1Con 2021 ADA RECOMMENDATION SEE BELOW Normal [facility] Comment on above: Result Comment: ADA RECOMMENDED LIMIT 4.0 - 6.0 ADA THERAPEUTIC TARGET < 7.0 ACTION SUGGESTED > 7.0 Performed By: #### A 1C #### [facility] [address] [place] [address] Dr. Ryann Pearce Glucose [Mass/Vol] 105 mg/dL Normal [facility] Comment on above: Performed By: #### A 1C #### [facility] [address] [place] [address] Dr. Ryann Pearce HbA1c (Bld) [Mass fraction] 5.3 % Normal 4.5-6.2 [facility] Comment on above: Performed By: #### A 1C #### [facility] [address] [place] [address] Dr. Ryann Pearce IRONon 06-06-2022 Iron [Mass/Vol] 104.0 ug/dL Normal 50.0-170.[address] [facility] Comment on above: Performed By: #### I NIKI DE LA TORRE #### [facility] [address] [place] [address] Dr. Ryann Pearce LIPID PROFILEon 06-06-2022 CHOL-HDL RATIO NORM SEE BELOW Normal [facility] Comment on above: Result Comment: 3.3 - 4.4 LOW RISK 4.4 - 7.1 AVERAGE RISK 7.1 - 11.0 MODERATE RISK >11.0 HIGH RISK Performed By: #### T SH, LIPID, T7, CMP #### [facility] [address] [place] [address] Dr. Ryann Pearce Cholesterol [Mass/Vol] 160 mg/dL Normal <=200 [facility] Comment on above: Performed By: #### T SH, LIPID, T7, CMP #### [facility] [address] [place] [address] Dr. Ryann Pearce Cholesterol in HDL [Mass/Vol] 75 mg/dL Critically high 40-60 [facility] Comment on above: Performed By: #### T SH, LIPID, T7, CMP #### [facility] [address] [address] [address] Ryann Pearce Cholesterol in LDL [Mass/Vol] 66.6 mg/dL Normal [facility] Comment on above: Performed By: #### T SH, LIPID, T7, CMP #### [facility] [address] [address] [address] Ryann Pearce Cholesterol.total/Chol esterol in HDL [Mass ratio] 2.1 {ratio} Normal [facility] Comment on above: Performed By: #### T SH, LIPID, T7, CMP #### [facility] [address] [address] [address] Ryann Pearce HDL NORMAL > or = 60 mg/dl - LOW CARDIOVASCULAR RISK <40 mg/dl - HIGH CARDIOVASCULAR RISK Normal [facility] Comment on above: Performed By: #### T SH, LIPID, T7, CMP #### [facility] [address] [address] [address] Ryann Pearce LDL CALC NORMAL SEE BELOW Normal [facility] Comment on above: Result Comment: <100 mg/dl OPTIMAL 100 - 129 mg/dl NEAR OR ABOVE OPTIMAL 130 - 159 mg/dl BORDERLINE HIGH 160 - 189 mg/dl HIGH >190 mg/dl VERY HIGH Performed By: #### T SH, LIPID, T7, CMP #### [facility] [address] [address] [address] Ryann Pearce Triglyceride [Mass/Vol] 92 mg/dL Normal <=150 [facility] Comment on above: Performed By: #### T SH, LIPID, T7, CMP #### [facility] [address] [place] [address] Dr. Ryann Pearce VLDL CALC 18.4 mg/dL Normal [facility] Comment on above: Performed By: #### T SH, LIPID, T7, CMP #### [facility] [address] [address] [address] Ryann Pearce PROF 14(COMP METB)on 022 Albumin [Mass/Vol] 3.4 g/dL Normal 3.4-5.0 [facility] Comment on above: Performed By: #### T SH, LIPID, T7, CMP #### [facility] [address] [address] [address] Ryann Pearce Albumin/Globulin [Mass ratio] 1.0 {ratio} Normal [facility] Comment on above: Performed By: #### T SH, LIPID, T7, CMP #### [facility] [address] [place] [address] Dr. yRann Pearce ALP [Catalytic activity/Vol] 71 U/L Normal 46-116 [facility] Comment on above: Performed By: #### T SH, LIPID, T7, CMP #### [facility] [address] [place] [address] Dr. Ryann Pearce ALT [Catalytic activity/Vol] 19 U/L Normal 14-59 [facility] Comment on above: Performed By: #### T SH, LIPID, T7, CMP #### [facility] [address] [address] [address] Ryann Pearce Anion gap [Moles/Vol] 7.8 mmol/L Normal [facility] Comment on above: Performed By: #### T SH, LIPID, T7, CMP #### [facility] [address] [address] [address] Ryann Pearce AST [Catalytic activity/Vol] 21 U/L Normal 15-37 [facility] Comment on above: Performed By: #### T SH, LIPID, T7, CMP #### [facility] [address] [address] [address] Ryann Pearce Bilirubin [Mass/Vol] 0.6 mg/dL Normal 0.2-1.0 [facility] Comment on above: Performed By: #### T SH, LIPID, T7, CMP #### [facility] [address] [address] [address] Ryann Pearce Calcium [Mass/Vol] 8.7 mg/dL Normal 8.5-10.1 [facility] Comment on above: Performed By: #### T SH, LIPID, T7, CMP #### [facility] [address] [address] [address] Ryann Pearce Chloride [Moles/Vol] 103 mmol/L Normal 98-107 [facility] Comment on above: Performed By: #### T SH, LIPID, T7, CMP #### [facility] [address] [place] [address] Dr. Ryann Pearce CO2 [Moles/Vol] 34.4 mmol/L Critically high 21.0-32.0 [facility] Comment on above: Performed By: #### T SH, LIPID, T7, CMP #### [facility] [address] [place] [address] Dr. Ryann Pearce Creatinine [Mass/Vol] 0.75 mg/dL Normal 0.55-1.02 [facility] Comment on above: Performed By: #### T SH, LIPID, T7, CMP #### [facility] [address] [place] [address] Dr. Ryann Pearce EGFR-AF ARGENTINE >60 Normal >=[address] [facility] Comment on above: Performed By: #### T SH, LIPID, T7, CMP #### [facility] [address] [place] [address] Dr. Ryann Pearce EGFR-NON AF ARGENTINE >60 Normal >=60 [facility] Comment on above: Performed By: #### T SH, LIPID, T7, CMP #### [facility] [address] [place] [address] Dr. Ryann Pearce Globulin (S) [Mass/Vol] 3.5 g/dL Normal [facility] Comment on above: Performed By: #### T SH, LIPID, T7, CMP #### [facility] [address] [address] [address] Ryann Pearce Glucose [Mass/Vol] 95 mg/dL Normal 74-106 [facility] Comment on above: Performed By: #### T SH, LIPID, T7, CMP #### [facility] [address] [place] [address] Dr. Ryann Pearce Potassium [Moles/Vol] 4.2 mmol/L Normal 3.5-5.1 [facility] Comment on above: Performed By: #### T SH, LIPID, T7, CMP #### [facility] [address] [address] [address] Ryann Pearce Protein [Mass/Vol] 6.9 g/dL Normal 6.4-8.2 [facility] Comment on above: Performed By: #### T SH, LIPID, T7, CMP #### [facility] [address] [address] [address] Ryann Pearce Sodium [Moles/Vol] 141 mmol/L Normal 136-145 [facility] Comment on above: Performed By: #### T SH, LIPID, T7, CMP #### [facility] [address] [place] [address] Dr. Ryann Pearce Urea nitrogen [Mass/Vol] 10.0 mg/dL Normal 7.0-18.0 [facility] Comment on above: Performed By: #### T SH, LIPID, T7, CMP #### [facility] [address] [place] [address] Dr. Ryann Pearce Urea nitrogen/Creatinine [Mass ratio] 13.3 mg/mg Normal [facility] Comment on above: Performed By: #### T SH, LIPID, T7, CMP #### [facility] [address] [place] [address] Dr. Ryann Pearce TSHon 06-06-2022 TSH 0.151 uIU/mL Critically low 0.358-3.740 [facility] Comment on above: Performed By: #### T SH, LIPID, T7, CMP #### [facility] [address] [place] [address] Dr. Ryann Pearce VITAMIN D 25 OHon 06-06-2022 VIT D 25-OH 75.4 ng/mL Normal [facility] Comment on above: Performed By: #### I WIL, VITAD #### [facility] [address] [place] [address] Dr. Ryann Pearce VIT D RANGES SEE BELOW Normal [facility] Comment on above: Result Comment: <20 ng/mL Vit D deficient 20 - <30 ng/mL Vit D insufficient 30 - 100 ng/mL Vit D sufficient >100 ng/mL Potential Toxicity Performed By: #### I WIL VITAD #### [facility] [address] [place] [address] Dr. Ryann Pearce MG MAMM SCREEN 3D KRISTINA CADon 05-11-2022 MG MAMM SCREEN 3D KRISTINA CAD Patient: YORDY YEBOAH. Exam Date: 05/11/2022 : 1945 Gender:F Ordering : DR GISELLA PORTER . Admission #: [id number] Family : Order #: [id number] CLICK HERE TO VIEW EXAM RADIOLOGY REPORT PROCEDURE: MAMMOGRAM SCREENING 3D BILATERAL CAD COMPARISON: MG MAMM SCREEN 3D KRISTINA CAD, 09/30/2020. MG MAMM LT DIAG FU, 09/13/2019. INDICATIONS: Screening mammography Calculator Name NCI Breast Cancer Risk Assessment Tool 5 Year Breast Cancer Risk 3.20% Lifetime Breast Cancer Risk 6.40% Personal Breast Cancer No Personal Ovarian Cancer No Treatments None Family Cancers Mother with breast cancer at age 80. LOCATION: [facility] BREAST COMPOSITION: Scattered areas fibroglandular density. FINDINGS: DIAGNOSTIC CATEGORY 1--NEGATIVE. NO CHANGE FROM COMPARISON ASSESSMENT. Scattered benign-appearing calcifications are present. RIGHT BREAST: No significant suspicious finding. LEFT BREAST: No significant suspicious finding. RECOMMENDATIONS: ROUTINE MAMMOGRAM AND CLINICAL EVALUATION IN 12 MONTHS. PLEASE NOTE: A NORMAL MAMMOGRAM DOES NOT EXCLUDE THE POSSIBILITY OF BREAST CANCER. A CLINICALLY SUSPICIOUS PALPABLE LUMP SHOULD BE BIOPSIED. Dictated by: Funmilayo Macias MD on 05/11/2022 at 12:43 Approved by: Funmilayo Macias MD on 05/11/2022 at 12:45 Normal [facility] XR knee RT 2Von 03-16-2022 XR knee RT 2V [facility] [place] [address] XRay Report Signed Patient: Yordy Yeboah MR#: [id number] : 1945 Acct:[id number] Age/Sex: 76 / F ADM Date: 03/16/22 Loc: [facility] Room: Type: [facility] Attending Dr: Sydney Erickson II, MD Copies to: Sydney Erickson MD Ordering Provider: Sydney Erickson MD Date of Service: 03/16/22 XR/XR knee RT 2V: History of total right knee replacement RIGHT KNEE - 2 views CLINICAL HISTORY: Follow-up right total knee arthroplasty COMPARISON: Right knee 02/02/2022 FINDINGS: No hardware complication. No acute bony process. XR/XR knee RT 2V IMPRESSION: NO HARDWARE COMPLICATION. Impression dictated by: Migue Groves Jr., DSunOSun03/16/2022 4:22 PM Dictation Location: [facility]12 Transcribed By: [facility] 03/16/221621 Dictated By: Migue Groves Jr, DO 03/16/221621 Signed By: 03/16/2216[address] [facility] XR tibia fibula RT 2V*on XR tibia fibula RT 2V* [facility] [place] [address] XRay Report Signed Patient: Yordy Yeboah MR#: [id number] : 1945 Acct:[id number] Age/Sex: 76 / F ADM Date: 03/16/22 Loc: [facility] Room: Type: [facility] Attending Dr: Sydney Erickson II, MD Copies to: Sydney Erickson MD Ordering Provider: Sydney Erickson MD Date of Service: 03/16/22 XR/XR tibia fibula RT 2V*: History of total right knee replacement ([id number]) XR/XR femur RT 2V*: History of total right knee replacement CLINICAL DATA: Follow-up after right knee replacement. RIGHT FEMUR - 1 view COMPARISON: Right knee 03/16/2022 and pelvis 08/13/2021 AP weightbearing view of the femur was obtained. Patient has hip and knee prostheses. The hardware appears intact and similar to the previous studies. There are no acute fractures or dislocation. No soft tissue abnormalities are noted. XR/XR femur RT 2V* IMPRESSION: STABLE HIP AND KNEE PROSTHESES. RIGHT TIB-FIB - 1 view COMPARISON: Right knee 03/16/2022 Standing AP view of the tib-fib was obtained. Patient's knee prosthesis is visualized. The hardware appears intact and unchanged from the prior. There are no acute fractures or dislocation. No soft tissue abnormalities are noted. IMPRESSION: STABLE KNEE REPLACEMENT. NO ACUTE FINDINGS. Impression dictated by: Judit Nuno M.D.03/16/2022 4:32 PM Dictation Location: [place] [address] Transcribed By: [facility] 03/16/221631 Dictated By: Judit Nuno MD 03/16/22 163 Signed By: 03/16/[address] [facility] CBC AUTO DIFFon 02-21-2022 BASO # 0.0 103/ul Normal 0.0-0.1 [facility] Comment on above: Performed By: #### Mike DE LA TORRE VITAD #### [facility] [address] [place] [address] Dr. Ryann Pearce Basophils/100 WBC (Bld) 0.5 % Normal 0.2-2.0 [facility] Comment on above: Performed By: #### Mike DE LA TORRE VITAD #### [facility] [address] [place] [address] Dr. Ryann Pearce EO # 0.2 103/ul Normal 0.0-0.7 [facility] Comment on above: Performed By: #### Mike DE LA TORRE VITAD #### [facility] [address] [place] [address] Dr. Ryann Pearce Eosinophils/100 WBC (Bld) 3.9 % Normal 0.9-7.0 [facility] Comment on above: Performed By: #### Mike DE LA TORRE VITAD #### [facility] [address] [place] [address] Dr. Ryann Pearce Erythrocyte distribution width (RBC) [Ratio] 12.8 % Normal 11.0-15.0 [facility] Comment on above: Performed By: #### Mike DE LA TORRE VITAD #### [facility] [address] [place] [address] Dr. Ryann Pearce Hematocrit (Bld) [Volume fraction] 36.5 % Normal 36.0-48.0 [facility] Comment on above: Performed By: #### Mike DE LA TORRE VITAD #### [facility] [address] [place] [address] Dr. Ryann Pearce Hemoglobin (Bld) [Mass/Vol] 11.9 g/dL Critically low 12.0-16.0 [facility] Comment on above: Performed By: #### I WIL, VITAD #### [facility] [address] [place] [address] Dr. Ryann Pearce IG # 0.01 10e3/ul Normal 0.00-0.03 [facility] Comment on above: Performed By: #### I WIL, VITAD #### [facility] [address] [place] [address] Dr. Ryann Pearce IG % 0.2 % Normal 0.0-0.5 [facility] Comment on above: Performed By: #### I WIL, VITAD #### [facility] [address] [place] [address] Dr. Ryann Pearce LYMPH # 1.1 103/ul Critically low 1.2-3.8 [facility] Comment on above: Performed By: #### I WIL, VITAD #### [facility] [address] [place] [address] Dr. Ryann Pearce Lymphocytes/100 WBC (Bld) 25.5 % Normal 20.5-60.0 [facility] Comment on above: Performed By: #### I WIL, VITAD #### [facility] [address] [place] [address] Dr. Ryann Pearce MANUAL DIFF REQ NO Normal [facility] Comment on above: Performed By: #### I WIL, VITAD #### [facility] [address] [place] [address] Dr. Ryann Pearce MCH (RBC) [Entitic mass] 29.6 pg Normal 26.7-34.0 [facility] Comment on above: Performed By: #### I WIL, VITAD #### [facility] [address] [place] [address] Dr. Ryann Pearce MCHC (RBC) [Mass/Vol] 32.6 g/dL Normal 29.9-35.2 [facility] Comment on above: Performed By: #### I WIL, VITAD #### [facility] [address] [place] [address] Dr. Ryann Pearce MCV (RBC) [Entitic vol] 90.8 fL Normal 81.0-99.0 [facility] Comment on above: Performed By: #### I WIL, VITAD #### [facility] [address] [place] [address] Dr. Ryann Pearce MONO # 0.4 103/ul Normal 0.3-0.8 [facility] Comment on above: Performed By: #### I WIL, VITAD #### [facility] [address] [place] [address] Dr. Ryann Pearce Monocytes/100 WBC (Bld) 10.4 % Normal 1.7-12.0 [facility] Comment on above: Performed By: #### I WIL, VITAD #### [facility] [address] [place] [address] Dr. Ryann Pearce NEUT # 2.5 103/ul Normal 1.4-6.5 [facility] Comment on above: Performed By: #### I WIL, VITAD #### [facility] [address] [place] [address] Dr. Ryann Pearce Neutrophils/100 WBC (Bld) 59.5 % Normal 43.0-75.0 [facility] Comment on above: Performed By: #### Mike DE LA TORRE, VITAD #### [facility] [address] [place] [address] Dr. Ryann Pearce Platelet mean volume (Bld) [Entitic vol] 9.1 fL Critically low 9.5-13.5 [facility] Comment on above: Performed By: #### I WIL, VITAD #### [facility] [address] [place] [address] Dr. Ryann Pearce PLT 283 103/ul Normal 150-450 [facility] Comment on above: Performed By: #### I WIL, VITAD #### [facility] [address] [place] [address] Dr. Ryann Pearce RBC 4.02 106/ul Critically low 4.20-5.40 [facility] Comment on above: Performed By: #### I WIL, VITAD #### [facility] [address] [place] [address] [address] Ryann Pearce WBC 4.2 103/ul Normal 4.0-11.0 [facility] Comment on above: Performed By: #### I WIL, VITAD #### [facility] [address] [place] [address] Dr. Ryann Pearce PROF 14(COMP METB)on 022 Albumin [Mass/Vol] 3.5 g/dL Normal 3.4-5.0 [facility] Comment on above: Performed By: #### I WIL VITAD #### [facility] [address] [place] [address] Dr. Ryann Pearce Albumin/Globulin [Mass ratio] 1.0 {ratio} Normal [facility] Comment on above: Performed By: #### I WIL VITAD #### [facility] [address] [place] [address] Dr. Ryann Pearce ALP [Catalytic activity/Vol] 68 U/L Normal 46-116 [facility] Comment on above: Performed By: #### I WIL VITAD #### [facility] [address] [place] [address] Dr. Ryann Pearce ALT [Catalytic activity/Vol] 22 U/L Normal 14-59 [facility] Comment on above: Performed By: #### I WIL VITAD #### [facility] [address] [place] [address] Dr. Ryann Pearce Anion gap [Moles/Vol] 11.8 mmol/L Normal [facility] Comment on above: Performed By: #### I WIL, VITAD #### [facility] [address] [place] [address] Dr. Ryann Pearce AST [Catalytic activity/Vol] 21 U/L Normal 15-37 [facility] Comment on above: Performed By: #### Mike DE LA TORRE, VITAD #### [facility] [address] [place] [address] Dr. Ryann Pearce Bilirubin [Mass/Vol] 0.5 mg/dL Normal 0.2-1.0 [facility] Comment on above: Performed By: #### I WIL, VITAD #### [facility] [address] [place] [address] Dr. Ryann Pearce Calcium [Mass/Vol] 8.9 mg/dL Normal 8.5-10.1 [facility] Comment on above: Performed By: #### I WIL, VITAD #### [facility] [address] [place] [address] Dr. Ryann Pearce Chloride [Moles/Vol] 104 mmol/L Normal 98-107 [facility] Comment on above: Performed By: #### I WIL VITAD #### [facility] [address] [place] [address] Dr. Ryann Pearce CO2 [Moles/Vol] 29.1 mmol/L Normal 21.0-32.[address] [facility] Comment on above: Performed By: #### Mike DE LA TORRE VITAD #### [facility] [address] [place] [address] Dr. Ryann Pearce Creatinine [Mass/Vol] 0.66 mg/dL Normal 0.55-1.02 [facility] Comment on above: Performed By: #### Mike DE LA TORRE VITAD #### [facility] [address] [place] [address] Dr. Ryann Pearce EGFR-AF ARGENTINE >60 Normal >=60 [facility] Comment on above: Performed By: #### Mike DE LA TORRE VITAD #### [facility] [address] [place] [address] Dr. Ryann Pearce EGFR-NON AF ARGENTINE >60 Normal >=60 [facility] Comment on above: Performed By: #### I WIL VITAD #### [facility] [address] [place] [address] Dr. Ryann Pearce Globulin (S) [Mass/Vol] 3.4 g/dL Normal [facility] Comment on above: Performed By: #### I WIL, VITAD #### [facility] [address] [place] [address] Dr. Ryann Pearce Glucose [Mass/Vol] 106 mg/dL Normal 74-106 [facility] Comment on above: Performed By: #### I WIL, VITAD #### [facility] [address] [place] [address] Dr. Ryann Pearce Potassium [Moles/Vol] 3.9 mmol/L Normal 3.5-5.1 [facility] Comment on above: Performed By: #### I WIL, VITAD #### [facility] [address] [place] [address] Dr. Ryann Pearce Protein [Mass/Vol] 6.9 g/dL Normal 6.4-8.2 [facility] Comment on above: Performed By: #### Mike DE LA TORRE VITAD #### [facility] [address] [place] [address] Dr. Ryann Pearce Sodium [Moles/Vol] 141 mmol/L Normal 136-145 [facility] Comment on above: Performed By: #### Mike DE LA TORRE VITAD #### [facility] [address] [place] [address] Dr. Ryann Pearce Urea nitrogen [Mass/Vol] 14.0 mg/dL Normal 7.0-18.0 [facility] Comment on above: Performed By: #### Mike DE LA TORRE VITAD #### [facility] [address] [place] [address] Dr. Ryann Pearce Urea nitrogen/Creatinine [Mass ratio] 21.2 mg/mg Normal [facility] Comment on above: Performed By: #### Mike DE LA TORRE VITAD #### [facility] [address] [place] [address] Dr. Ryann Pearce XR knee RT 3Von 02-02-2022 XR knee RT 3V [facility] Other XR knee RT 3V [facility] Other XR knee RT 3V [address] [place] [address] [facility] Other XR knee RT 3V [address] [facility] Other XR knee RT 3V XRay Report [employer] Other XR knee RT 3V Signed [employer] Other XR knee RT 3V Patient: Yordy Yeboah MR#: [id number] [employer] Other XR knee RT 3V [id number] [employer] Other XR knee RT 3V : 1945 Acct:[id number] [employer] Other XR knee RT 3V Age/Sex: 76 / F ADM Date: 02/02/22 [employer] Other XR knee RT 3V Loc: [facility] Room: Type: REG I [employer] Other XR knee RT 3V Attending Dr: Sydney Erickson II, MD [employer] Other XR knee RT 3V Copies to: Sydney Erickson MD [employer] Other XR knee RT 3V Ordering Provider: Sydney Erickson MD [employer] Other XR knee RT 3V Date of Service: 02/02/22 [employer] Other XR knee RT 3V XR/XR knee RT 3V - NOT FOR ER USE: History of total right knee [employer] Other XR knee RT 3V replacement [employer] Other XR knee RT 3V RIGHT KNEE - 3 views [employer] Other XR knee RT 3V CLINICAL HISTORY: Follow-up right total knee arthroplasty [employer] Other XR knee RT 3V COMPARISON: Right knee 12/20/2021 [employer] Other XR knee RT 3V FINDINGS: [employer] Other XR knee RT 3V Right knee prosthesis without radiographic complication. No acute bony process. [employer] Other XR knee RT 3V XR/XR knee RT 3V - NOT FOR ER USE [employer] Other XR knee RT 3V IMPRESSION: [employer] Other XR knee RT 3V NO EVIDENCE OF HARDWARE COMPLICATION. [employer] Other XR knee RT 3V Impression dictated by: Migue Groves Jr., D.OSun02/02/2022 4:27 PM [employer] Other XR knee RT 3V Dictation Location: [place] [address] [employer] Other XR knee RT 3V Transcribed By: P[facility] 02/02/22 [facility] [employer] Other XR knee RT 3V Dictated By: Migue Groves Jr DO 02/02/22 [facility] Other XR knee RT 3V Signed By: [employer] Other XR knee RT 3V 02/02/22 [facility] [employer] Other XR knee RT 3V - NOT FOR ER U Jeimy 02-02-2022 XR knee RT 3V - NOT FOR ER USE [facility] [place] [address] [place] [address] XRay Report Signed Patient: Yordy Yeboah MR#: [id number] : 1945 Acct:[id number] Age/Sex: 76 / F ADM Date: 02/02/22 Loc: [facility] Room: Type: [facility] Attending Dr: Sydney Erickson II, MD Copies to: Sydney Erickson MD Ordering Provider: Sydney Erickson MD Date of Service: 02/02/22 XR/XR knee RT 3V - NOT FOR ER USE: History of total right knee replacement RIGHT KNEE - 3 views CLINICAL HISTORY: Follow-up right total knee arthroplasty COMPARISON: Right knee 12/20/2021 FINDINGS: Right knee prosthesis without radiographic complication. No acute bony process. XR/XR knee RT 3V - NOT FOR ER USE IMPRESSION: NO EVIDENCE OF HARDWARE COMPLICATION. Impression dictated by: Migue Groves Jr., D.O.02/02/2022 4:27 PM Dictation Location: [place] [address] Transcribed By: [facility] 02/02/221626 Dictated By: Migue Groves Jr, DO 02/02/221625 Signed By: 02/02/2216[address] [facility] COVID-19 Positive/NegativeOr dered By: Sydney Erickson on 12-17-2021 SARS-CoV-2 (COVID-19) N gene BRAULIO+probe Ql (Resp) Negative Negative [facility] Comment on above: Testing for SARS-CoV -2 by RT-PCR This test was developed and its performance characteristics determined by [employer] and validated at the [facility]. This test has not been FDA cleared or approved. This test has been authorized by FDA under an Emergency Use Authorization (EUA). This test has been validated in accordance with the FDA's Guidance Document (Policy for Diagnostics Testing in Laboratories Certified to Perform High Complexity Testing under CLIA prior to Emergency Use Authorization for Coronavirus Disease-2019 during the Public Health Emergency) issued on September 26, 2019. This test is only authorized for the duration of time the declaration that circumstances exist justifying the authorization of the emergency use of in vitro diagnostic tests for detection of SARS-CoV-2 virus and/or diagnosis of COVID-19 infection under section 564(b)(1) of the Act, 21 U.S.C. 360bbb-3(b)(1), unless the authorization is terminated or revoked sooner. Automated erythrocytes count in urine sediment (number/area)Ordered By: Sydney Erickson on 12-07-2021 RBC Auto (Urine sed) [#/Area] 1-2 [HPF] 0-4 [facility] Automated leukocytes count i n urine sediment (number/area)Ordered By: Sydney Erickson on 12-07-2021 WBC Auto (Urine sed) [#/Area] None seen [HPF] 0-4 [facility] Basophils Auto (Bld) [#/Vol] Ordered By: Sydney Erickson on 12-07-2021 Basophils (Bld) [#/Vol] 0.0 10*3/uL 0.0-0.2 [facility] Basophils/100 WBC Auto (Bld) Ordered By: Sydney Erickson on 12-07-2021 Basophils/100 WBC (Bld) 0.9 % . [facility] Bilirubin Test strip Ql (U)O rdered By: Sydney Erickson on 12-07-2021 Bilirubin Ql (U) Negative Negative [facility] Blood hemoglobin measurement (mass/volume)Ordered By: Sydney Erickson on 12-07-2021 Hemoglobin (Bld) [Mass/Vol] 13.1 g/dL 11.8-15.4 [facility] Blood leukocytes automated c ount (number/volume)Ordered By: Sydney Erickson on 12-07-2021 WBC (Bld) [#/Vol] 3.8 10*3/uL 4.5-11.0 [facility] CT biopsyOrdered By: Sydney Erickson on 12-07-2021 CT biopsy 241 umol/L 0-285 [facility] Comment on above: Published reference interval for apparently healthy subjects between age 20 and 60 is 205 - 285 umol/L and in a poorly controlled diabetic population is 228 - 563 umol/L with a mean of 396 umol/L. Performed at: [address] [id number] Supervisor Color Making: Fortunato Garcia PhD, Phone: [phone] Color Auto (U)Ordered By: Xuan Erickson on 12-07-2021 Color (U) Yellow Yellow [facility] Creatinine and Glomerular fi ltration rate.predicted panel (S/P/Bld)Ordered By: Sydney Erickson on 12-07-2021 Creatinine [Mass/Vol] 0.86 mg/dL 0.44-1.03 [facility] Eosinophils Auto (Bld) [#/Vo l]Ordered By: Sydney Erickson on 12-07-2021 Eosinophils (Bld) [#/Vol] 0.1 10*3/uL 0.0-0.45 [facility] Eosinophils/100 WBC Auto (Bl d)Ordered By: Sydney Erickson on 12-07-2021 Eosinophils/100 WBC (Bld) 2.4 % . [facility] Erythrocyte distribution wid th Auto (RBC) [Ratio]Ordered By: Sydney Erickson on 12-07-2021 Erythrocyte distribution width (RBC) [Ratio] 12.5 % 11.9-15.3 [facility] Estimated glomerular filtrat ion rate (GFR) non- AmericanOrdered By: Sydney Erickson on 12-07-2021 GFR/1.73 sq M.predicted among non-blacks MDRD (S/P/Bld) [Vol rate/Area] > 60 mL/Min [facility] Hematocrit Auto (Bld) [Volum e fraction]Ordered By: Sydney Erickson on 12-07-2021 Hematocrit (Bld) [Volume fraction] 39.0 % 34.0-46.4 [facility] Ketones Auto test strip (U) [Mass/Vol]Ordered By: Sydney Erickson on 12-07-2021 Ketones (U) [Mass/Vol] Negative Negative Fi [facility] Laboratory - Hematology and Cell countsOrdered By: Sydney Erickson on 12-07-2021 Nucleated RBC/100 WBC (Bld) [Ratio] 0.0 % 0-0.5 [facility] - UrinalysisOrder ed By: Sydney Erickson on 12-07-2021 Hyaline casts LM Ql (Urine sed) None seen [LPF] 0-8 [facility] Lymphocytes Auto (Bld) [#/Vo l]Ordered By: Sydney Erickson on 12-07-2021 Lymphocytes (Bld) [#/Vol] 1.0 10*3/uL 1.00-4.8 [facility] Lymphocytes/100 WBC Auto (Bl d)Ordered By: Sydney Erickson on 12-07-2021 Lymphocytes/100 WBC (Bld) 26.7 % . [facility] MCH Auto (RBC) [Entitic mass ]Ordered By: Sydney Erickson on 12-07-2021 MCH (RBC) [Entitic mass] 29.7 pg 24.7-34.3 [facility] MCHC Auto (RBC) [Mass/Vol]Or dered By: Sydney Erickson on 12-07-2021 MCHC (RBC) [Mass/Vol] 33.5 g/dL 32.0-35.0 [facility] MCV Auto (RBC) [Entitic vol] Ordered By: Sydney Erickson on 12-07-2021 MCV (RBC) [Entitic vol] 88.7 fL 80-100 [facility] Monocytes Auto (Bld) [#/Vol] Ordered By: Sydney Erickson on 12-07-2021 Monocytes (Bld) [#/Vol] 0.4 10*3/uL 0.0-0.8 [facility] Monocytes/100 WBC Auto (Bld) Ordered By: Sydney Erickson on 12-07-2021 Monocytes/100 WBC (Bld) 11.1 % . [facility] Neutrophils Auto (Bld) [#/Vo l]Ordered By: Sydney Erickson on 12-07-2021 Neutrophils (Bld) [#/Vol] 2.2 10*3/uL 1.8-7.7 [facility] Neutrophils/100 WBC Auto (Bl d)Ordered By: Sydney Erickson on 12-07-2021 Neutrophils/100 WBC (Bld) 58.9 % . [facility] Nitrite Test strip Ql (U)Ord ered By: Sydney Erickson on 12-07-2021 Nitrite Ql (U) Negative Negative [facility] No Panel InformationOrdered By: Sydney Erickson on 12-07-2021 Estimated GFR () > 60 mL/Min [facility] Comment on above: GFR estimated refere nce range: According to KDOQI guidelines, <60 ml/min/1.73m2 is sufficient to diagnose a patient with chronic kidney disease. Pharmacy Creatinine Clearance (Chem N/A [facility] Platelet mean volume Auto (B ld) [Entitic vol]Ordered By: Sydney Erickson on 12-07-2021 Platelet mean volume (Bld) [Entitic vol] 8.2 fL 6.3-10.7 [facility] Platelets Auto (Bld) [#/Vol] Ordered By: Sydney Erickson on 12-07-2021 Platelets (Bld) [#/Vol] 274 10*3/uL 150-450 [facility] Protein Auto test strip (U) [Mass/Vol]Ordered By: Sydney Erickson on 12-07-2021 Protein (U) [Mass/Vol] Negative Negative [facility] RBC Auto (Bld) [#/Vol]Ordere d By: Sydney Erickson on 12-07-2021 RBC (Bld) [#/Vol] 4.40 10*6/uL 3.60-5.00 [facility] Serum or plasma calcium catalino urement (mass/volume)Ordered By: Sydney Erickson on 12-07-2021 Calcium [Mass/Vol] 9.3 mg/dL 8.2-10.2 [facility] Serum or plasma chloride juan surement (moles/volume)Ordered By: Sydney Erickson on 12-07-2021 Chloride [Moles/Vol] 99 mmol/L 95-114 [facility] Serum or plasma glucose catalino urement (mass/volume)Ordered By: Sydney Erickson on 12-07-2021 Glucose [Mass/Vol] 94 mg/dL 70-100 [facility] Comment on above: ADA recommended refe rence range Random Glucose Reference Range is dependent on time and content of last meal. Glucose of more than 200 mg/dL in a nonstressed, ambulatory subject supports the diagnosis of Diabetes Mellitus. Serum or plasma potassium me asurement (moles/volume)Ordered By: Sydney Erickson on 12-07-2021 Potassium [Moles/Vol] 4.4 mmol/L 3.5-5.1 [facility] Serum or plasma sodium measu rement (moles/volume)Ordered By: Sydney Erickson on 12-07-2021 Sodium [Moles/Vol] 139 mmol/L 136-146 [facility] Serum or plasma total carbon dioxide measurement (moles/volume)Ordered By: Sydney Erickson on 12-07-2021 CO2 [Moles/Vol] 26.7 mmol/L 22.0-30.0 [facility] Serum or plasma urea nitroge n measurement (mass/volume)Ordered By: Sydney Erickson on 12-07-2021 Urea nitrogen [Mass/Vol] 14 mg/dL 9-23 [facility] Specific gravity Auto test s trip (U) [Rel density]Ordered By: Sydney Erickson on 12-07-2021 Specific gravity (U) [Rel density] 1.010 1.001-1.030 [facility] Squamous epithelial cells de tection in urine sediment by light microscopyOrdered By: Sydney Erickson on 12-07-2021 Epithelial cells.squamous LM Ql (Urine sed) None seen [HPF] 0-2 [facility] Urine bacteria detection by automated methodOrdered By: Sydney Erickson on 12-07-2021 Bacteria Auto Ql (U) None seen None Seen [facility] Urine clarity by refractomet ry automatedOrdered By: Sydney Erickson on 12-07-2021 Clarity Refractometry automated (U) Clear Clear [facility] Urine glucose measurement by automated test strip (mass/volume)Ordered By: Sydney Erickson on 12-07-2021 Glucose Auto test strip (U) [Mass/Vol] Normal mg/dL Normal [facility] Urine hemoglobin detection b y automated test stripOrdered By: Sydney Erickson on 12-07-2021 Hemoglobin Auto test strip Ql (U) Negative Negative [facility] Urine leukocyte esterase det ection by automated test stripOrdered By: Sydney Erickson on 12-07-2021 Leukocyte esterase Auto test strip Ql (U) 1+ Negative [facility] Urobilinogen Auto test strip (U) [Mass/Vol]Ordered By: Sydney Erickson on 12-07-2021 Urobilinogen (U) [Mass/Vol] Normal mg/dL Normal [facility] pH Auto test strip (U)Ordere d By: Sydney Erickson on 12-07-2021 pH (U) 7.5 [pH] 5.0-9.0 [facility] CBC AUTO DIFFon 09-01-2021 BASO # 0.0 103/ul Normal 0.0-0.1 [facility] Comment on above: Performed By: #### I NIKI DE LA TORRE #### [facility] [address] [address] [address] Ryann Pearce Basophils/100 WBC (Bld) 0.8 % Normal 0.2-2.0 [facility] Comment on above: Performed By: #### I WIL, VITAD #### [facility] [address] [place] [address] Dr. Ryann Pearce EO # 0.2 103/ul Normal 0.0-0.7 [facility] Comment on above: Performed By: #### I WIL, VITAD #### [facility] [address] [place] [address] Dr. Ryann Pearce Eosinophils/100 WBC (Bld) 4.1 % Normal 0.9-7.0 [facility] Comment on above: Performed By: #### I WIL, VITAD #### [facility] [address] [place] [address] Dr. Ryann Pearce Erythrocyte distribution width (RBC) [Ratio] 12.5 % Normal 11.0-15.0 [facility] Comment on above: Performed By: #### I WIL VITAD #### [facility] [address] [place] [address] Dr. Ryann Pearce Hematocrit (Bld) [Volume fraction] 37.6 % Normal 36.0-48.0 [facility] Comment on above: Performed By: #### I WIL VITAD #### [facility] [address] [place] [address] Dr. Ryann Pearce Hemoglobin (Bld) [Mass/Vol] 12.3 g/dL Normal 12.0-16.0 [facility] Comment on above: Performed By: #### Mike DE LA TORRE VITAD #### [facility] [address] [place] [address] Dr. Ryann Pearce IG # 0.02 10e3/ul Normal 0.00-0.03 [facility] Comment on above: Performed By: #### I WIL VITAD #### [facility] [address] [place] [address] Dr. Ryann Pearce IG % 0.5 % Normal 0.0-0.5 [facility] Comment on above: Performed By: #### Mike DE LA TORRE, VITAD #### [facility] [address] [place] [address] Dr. Ryann Pearce LYMPH # 1.1 103/ul Critically low 1.2-3.8 [facility] Comment on above: Performed By: #### I WIL, VITAD #### [facility] [address] [place] [address] Dr. Ryann Pearce Lymphocytes/100 WBC (Bld) 29.0 % Normal 20.5-60.0 [facility] Comment on above: Performed By: #### I WIL, VITAD #### [facility] [address] [place] [address] Dr. Ryann Pearce MANUAL DIFF REQ NO Normal [facility] Comment on above: Performed By: #### I WIL, VITAD #### [facility] [address] [place] [address] Dr. Ryann Pearce MCH (RBC) [Entitic mass] 30.5 pg Normal 26.7-34.0 [facility] Comment on above: Performed By: #### I WIL, VITAD #### [facility] [address] [place] [address] Dr. Ryann Pearce MCHC (RBC) [Mass/Vol] 32.7 g/dL Normal 29.9-35.2 [facility] Comment on above: Performed By: #### I WIL, VITAD #### [facility] [address] [place] [address] Dr. Ryann Pearce MCV (RBC) [Entitic vol] 93.3 fL Normal 81.0-99.0 [facility] Comment on above: Performed By: #### I WIL, VITAD #### [facility] [address] [place] [address] Dr. Ryann Pearce MONO # 0.5 103/ul Normal 0.3-0.8 [facility] Comment on above: Performed By: #### I WIL, VITAD #### [facility] [address] [place] [address] Dr. Ryann Pearce Monocytes/100 WBC (Bld) 13.1 % Critically high 1.7-12.0 [facility] Comment on above: Performed By: #### I WIL, VITAD #### [facility] [address] [place] [address] Dr. Ryann Pearce NEUT # 2.0 103/ul Normal 1.4-6.5 [facility] Comment on above: Performed By: #### I WIL VITAD #### [facility] [address] [place] [address] Dr. Ryann Pearce Neutrophils/100 WBC (Bld) 52.5 % Normal 43.0-75.0 [facility] Comment on above: Performed By: #### Mike DE LA TORRE VITAD #### [facility] [address] [place] [address] Dr. Ryann Pearce Platelet mean volume (Bld) [Entitic vol] 9.0 fL Critically low 9.5-13.5 [facility] Comment on above: Performed By: #### Mike DE LA TORRE VITAD #### [facility] [address] [place] [address] Dr. Ryann Pearce PLT 229 103/ul Normal 150-450 [facility] Comment on above: Performed By: #### Mike DE LA TORRE VITAD #### [facility] [address] [place] [address] Dr. Ryann Pearce RBC 4.03 106/ul Critically low 4.20-5.40 [facility] Comment on above: Performed By: #### Mike DE LA TORRE VITAD #### [facility] [address] [place] [address] Dr. Ryann Pearce WBC 3.9 103/ul Critically low 4.0-11.0 [facility] Comment on above: Performed By: #### Mike DE LA TORRE VITAD #### [facility] [address] [place] [address] Dr. Ryann Pearce PROF 14(COMP METB)on 022 Albumin [Mass/Vol] 3.1 g/dL Critically low 3.5-5.0 [facility] Comment on above: Performed By: #### C MP #### [facility] [address] [place] [address] Dr. Ryann Pearce Albumin/Globulin [Mass ratio] 0.9 {ratio} Normal [facility] Comment on above: Performed By: #### C MP #### [facility] [address] [place] [address] Dr. Ryann Pearce ALP [Catalytic activity/Vol] 66 U/L Normal 38-126 [facility] Comment on above: Performed By: #### C MP #### [facility] [address] [place] [address] Dr. Ryann Pearce ALT [Catalytic activity/Vol] 28 U/L Normal 9-52 [facility] Comment on above: Performed By: #### C MP #### [facility] [address] [place] [address] Dr. Ryann Pearce Anion gap [Moles/Vol] 9.8 mmol/L Normal [facility] Comment on above: Performed By: #### C MP #### [facility] [address] [place] [address] Dr. Ryann Pearce AST [Catalytic activity/Vol] 22 U/L Normal 14-36 [facility] Comment on above: Performed By: #### C MP #### [facility] [address] [place] [address] Dr. Ryann Pearce Bilirubin [Mass/Vol] 0.5 mg/dL Normal 0.2-1.3 [facility] Comment on above: Performed By: #### C MP #### [facility] [address] [place] [address] Dr. Ryann Pearce Calcium [Mass/Vol] 8.5 mg/dL Normal 8.4-10.2 [facility] Comment on above: Performed By: #### C MP #### [facility] [address] [place] [address] Dr. Ryann Pearce Chloride [Moles/Vol] 102 mmol/L Normal 98-107 [facility] Comment on above: Performed By: #### C MP #### [facility] [address] [place] [address] Dr. Ryann Pearce CO2 [Moles/Vol] 31.7 mmol/L Critically high 22.0-30.0 [facility] Comment on above: Performed By: #### C MP #### [facility] [address] [place] [address] Dr. Ryann Pearce Creatinine [Mass/Vol] 0.91 mg/dL Normal 0.52-1.04 [facility] Comment on above: Performed By: #### C MP #### [facility] [address] [address] [address] Ryann Pearce EGFR-AF ARGENTINE >60 Normal >=[address] [facility] Comment on above: Performed By: #### C MP #### [facility] [address] [address] [address] Ryann Pearce EGFR-NON AF ARGENTINE =60 Normal >=60 [facility] Comment on above: Performed By: #### C MP #### [facility] [address] [address] [address] Ryann Pearce Globulin (S) [Mass/Vol] 3.3 g/dL Normal [facility] Comment on above: Performed By: #### C MP #### [facility] [address] [address] [address] Ryann Pearce Glucose [Mass/Vol] 89 mg/dL Normal 74-106 [facility] Comment on above: Performed By: #### C MP #### [facility] [address] [address] [address] Ryann Pearce Potassium [Moles/Vol] 4.5 mmol/L Normal 3.4-5.0 [facility] Comment on above: Performed By: #### C MP #### [facility] [address] [address] [address] Ryann Pearce Protein [Mass/Vol] 6.4 g/dL Normal 6.1-8.2 [facility] Comment on above: Performed By: #### C MP #### [facility] [address] [address] [address] Ryann Pearce Sodium [Moles/Vol] 139 mmol/L Normal 137-145 [facility] Comment on above: Performed By: #### C MP #### [facility] [address] [address] [address] Ryann Pearce Urea nitrogen [Mass/Vol] 14.0 mg/dL Normal 7.0-17.0 [facility] Comment on above: Performed By: #### C MP #### [facility] [address] [place], [place] [address] Dr. Ryann Pearce Urea nitrogen/Creatinine [Mass ratio] 15.4 mg/mg Normal [facility] Comment on above: Performed By: #### C MP #### [facility] [address] [place], [place] [address] Dr. Ryann Pearce Vital Signs Date Time Vital Sign Value Performing Clinician Facility 12-07-2022 10:00-0400 Body height 165.1 cm Ivette Calvgabriella Other [facility] Other 12-07-2022 10:00-0400 Body mass index (BMI) [Ratio] 24.96 kg/m2 Ivette [employer] (deja mi)gabriella Other [facility] Other 12-07-2022 10:00-0400 Body weight 68.04 kg Ivette Taylor Other [facility] Other 10-27-2022 13:59-0400 Diastolic blood pressure 74 mm[Hg] Funmilayo Odell MD Work Phone: [facility] 10-27-2022 13:59-0400 Heart rate 98 /min Funmilayo Odell MD Work Phone: [facility] 10-27-2022 13:59-0400 SaO2% (BldA) [Mass fraction] 96 % Funmilayo Odell MD Work Phone: [facility] 10-27-2022 13:59-0400 Systolic blood pressure 137 mm[Hg] Funmilayo Odell MD Work Phone: [facility] 09-21-2022 11:31-0400 Diastolic blood pressure 90 mm[Hg] MD Gisella Porter Work Phone: [facility] 09-21-2022 11:31-0400 Heart rate 94 /min MD Gisella Porter Work Phone: [facility] 09-21-2022 11:31-0400 Respiratory rate 18 /min MD Gisella Porter Work Phone: [facility] 09-21-2022 11:31-0400 SaO2% (BldA) [Mass fraction] 98 % MD Gisella Porter Work Phone: [facility] 09-21-2022 11:31-0400 Systolic blood pressure 146 mm[Hg] MD Gisella Porter Work Phone: [facility] 09-21-2022 10:09-0400 Body height 167.64 cm MD Gisella Porter Work Phone: [facility] 09-21-2022 10:090400 Body temperature 98.7 [degF] MD Gisella Porter Work Phone: [facility] 09-21-2022 10:09-0400 Body weight 64.41 kg MD Gisella Porter Work Phone: [facility] 01-05-2022 14:45-0400 Body height 165.1 cm [employer] Other [employer] [facility] [employer] [facility] Other 01-05-2022 14:45-0400 Body mass index (BMI) [Ratio] 22.96 kg/m2 [employer] Other [facility] Other 01-05-2022 14:45-0400 Body weight 62.6 kg [employer] Other [employer] [facility] [employer] [facility] Other 12-20-2021 12:31-0400 Diastolic blood pressure 94 mm[Hg] MD Gisella Porter Work Phone: [facility] 12-20-2021 12:31-0400 Heart rate 78 /min MD Gisella Porter Work Phone: [facility] 12-20-2021 12:31-0400 Respiratory rate 16 /min MD Gisella Porter Work Phone: [facility] 12-20-2021 12:31-0400 SaO2% (BldA) [Mass fraction] 99 % MD Gisella Porter Work Phone: [facility] 12-20-2021 12:31-0400 Systolic blood pressure 172 mm[Hg] MD Gisella Porter Work Phone: [facility] 12-20-2021 09:35-0400 Body temperature 97.8 [degF] MD Gisella Porter Work Phone: [facility] 12-20-2021 09:35-0400 Inhaled oxygen flow rate 6 L/min MD Gisella Porter Work Phone: [facility] 12-20-2021 08:23-0400 Body height 167.64 cm MD Gisella Porter Work Phone: [facility] 12-20-2021 08:23-0400 Body mass index (BMI) [Ratio] 23.8 kg/m2 MD Gisella Porter Work Phone: [facility] 12-20-2021 08:23-0400 Body weight 67 kg MD Gisella Porter Work Phone: [facility] 11-10-2021 10:45-0400 Body height 165.1 cm Sydney Waldorf II Other [employer] [facility] [employer] [facility] Other 11-10-2021 10:45-0400 Body mass index (BMI) [Ratio] 23.13 kg/m2 Sydney Georgina II Other [facility] Other 11-10-2021 10:45-0400 Body weight 63.05 kg Sydney Waldorf II Other [facility] Other 04-20-2021 11:45-0400 Body height 165.1 cm Manoj Forbes Other [facility] Other 04-20-2021 11:45-0400 Body mass index (BMI) [Ratio] 23.13 kg/m2 Manoj Forbes Other [facility] Other 04-20-2021 11:45-0400 Body weight 63.05 kg Manoj Forbes Other [facility] Other 04-20-2021 11:45-0400 Diastolic blood pressure 106 mm[Hg] Manoj Forbes Other [facility] Other 04-20-2021 11:45-0400 Systolic blood pressure 155 mm[Hg] Manoj Forbes Other [facility] Other Encounters Encounter Date Encounter Type Care Provider Facility Start: 04-10-2023 End: 04-10-2023 ambulatory Manoj Forbes Other [facility] Other Start: 04-10-2023 Telephone encounter [facility] Start: 01-04-2023 End: 01-04-2023 ambulatory Ivette Taylor Other [facility] Other Start: 01-04-2023 Office outpatient vi sit 15 minutes Ivette Calvey [facility] Start: 12-23-2022 End: 12-23-2022 ambulatory Sydney Erickson II Facility:[facility] Start: 12-23-2022 End: 12-23-2022 ambulatory MD Gisella Porter Work Phone: [facility] Work Phone: Start: 12-23-2022 End: 12-23-2022 Patient encounter procedure MD Gisella Porter Work Phone: [facility] Start: 12-07-2022 Office outpatient ne w 30 minutes Ivette Calvey [facility] Start: 12-07-2022 End: 12-07-2022 ambulatory Gisella Porter Facility:[facility] Start: 12-07-2022 End: 12-07-2022 ambulatory MD Gisella Porter Work Phone: [facility] Work Phone: Start: 12-07-2022 End: 12-07-2022 Patient encounter procedure MD Gisella Porter Work Phone: [facility] Start: 10-27-2022 End: 10-27-2022 ambulatory FUNMILAYO ODELL Facility:[facility] Start: 10-27-2022 End: 10-27-2022 Patient encounter procedure Funmilayo Odell MD Work Phone: [facility] Comment on above: Hemorrhoids, unspeci fied hemorrhoid type (Primary Dx) Start: 09-22-2022 End: 09-22-2022 ambulatory Manoj Forbes Other [facility] Other Start: 09-22-2022 Telephone encounter [facility] Start: 09-21-2022 End: 09-21-2022 ambulatory Manoj Forbes Facility:[facility] Start: 09-21-2022 End: 09-21-2022 Admission to same day surgery center MD Gisella Porter Work Phone: [facility] Work Phone: Start: 09-21-2022 End: 09-21-2022 ambulatory MD Gisella Porter Work Phone: [facility] Work Phone: Start: 08-23-2022 End: 08-24-[address] DOCTOR MAHARAJ Facility:[facility] Start: 08-04-2022 End: 08-04-2022 ambulatory Manoj Forbes Other [facility] Other Start: 08-04-2022 Telephone encounter [facility] Start: 07-06-2022 End: 07-07-[address] GISELLA PORTER . Facility:[facility] Start: 06-06-2022 End: 06-07-[address] GISELLA PORTER . Facility:[facility] Start: 05-11-2022 End: 05-12-[address] GISELLA PORTER . Facility:[facility] Start: 04-04-2022 End: 04-04-2022 ambulatory Manoj Forbes Other [facility] Other Start: 04-04-2022 Telephone encounter Manoj Forbes [facility] Start: 03-16-2022 End: 03-16-2022 ambulatory Sydney M Georgina II Facility:[facility] Start: 03-16-2022 End: 03-16-2022 Patient encounter procedure MD Gisella Porter Work Phone: [facility] Start: 02-23-2022 End: 02-23-2022 ambulatory Sydney M Georgina II Facility:[facility] Start: 02-23-2022 End: 02-23-2022 Discharged Recurring MD Gisella Porter Work Phone: [facility] [place] Start: 02-21-2022 End: 02-22-[address] LITA HANSEN Facility: Start: 02-02-2022 (Post-Op) Post-Op Sydney Waldorf II [facility] Start: 02-02-2022 End: 02-02-2022 ambulatory Sydney M Waldorf II [facility] [employer] [facility] Other Start: 02-02-2022 End: 02-02-2022 Patient encounter procedure MD Gisella Porter Work Phone: [facility] Start: 01-05-2022 (Post-Op) Post-Op Sydney Georgina II [facility] Start: 01-05-2022 End: 01-05-2022 ambulatory Sydney Waldorf II Other [facility] Other Start: 12-20-2021 End: 12-20-2021 Admission to same day surgery center MD Gisella Porter Work Phone: [facility] [place] Start: 12-17-2021 End: 12-17-2021 Patient encounter procedure MD Gisella Porter Work Phone: [facility]-Pre-Surgical Testing Start: 12-10-2021 (Prolonged) Prolonge d Services Sydney Waldorf II [facility] Start: 12-10-2021 End: 12-10-2021 ambulatory Sydney Waldorf II Other [facility] Other Start: 12-10-2021 Telephone encounter Sydney Waldorf II [facility] Start: 12-07-2021 End: 12-07-2021 Patient encounter procedure MD Gisella Porter Work Phone: [facility] Start: 12-01-2021 End: 12-01-2021 ambulatory Sydney Waldorf II Other [facility] Other Start: 12-01-2021 Patient encounter procedure Sydney Waldorf II [facility] Start: 11-18-2021 Encounter for preprocedural cardiovascular examination SYDNEY ERICKSON [facility] Start: 11-12-2021 End: 11-13-2021 ambulatory SYDNEY GEORGINA Facility:[facility] Start: 11-12-2021 End: 11-13-2021 Encounter for preprocedural cardiovascular examination SYDNEY ERICKSON Facility:[facility] Start: 11-10-2021 End: 11-10-2021 ambulatory Sydney Waldorf II Other [facility] Other Start: 11-10-2021 Office outpatient vi sit 40 minutes Sydney Waldorf II [facility] Start: 09-01-2021 End: 09-02-[address] DOCTOR MAHARAJ Facility:[facility] Start: 08-13-2021 End: 08-13-2021 ambulatory Sydney Georgina II Other [facility] Other Start: 08-13-2021 Office outpatient ne w 45 minutes Sydney Erickson II [facility] Start: 04-20-2021 Patient encounter procedure [facility] Procedures Date Procedure Procedure Detail Performing Clinician Start: 12-23-2022 X-ray of right knee MD Gisella Porter Work Phone: Start: 12-07-2022 Plain X-ray of left hand MD Gisella Porter Work Phone: Start: 09-21-2022 Flexible fiberoptic sigmoidoscopy MD Gisella Porter Work Phone: Start: 03-16-2022 Plain X-ray of right femur MD Gisella Porter Work Phone: Start: 03-16-2022 Plain X-ray of right tibia and right fibula MD Gisella Porter Work Phone: Start: 03-16-2022 X-ray of right knee MD Gisella Porter Work Phone: Start: 02-02-2022 X-ray of right knee MD Gisella Porter Work Phone: Start: 12-20-2021 Total replacement of right knee joint MD Gisella Porter Work Phone: Start: 12-20-2021 X-ray of right knee MD Gisella Porter Work Phone: History of operative procedure on knee Manoj Forbes Other Plan of Treatment Date Care Activity Detail Author Start: 02-24-2023 Influenza vaccination INFLUENZ A (Season Ended) [facility] Start: 09-21-2022 [facility] Start: 06-26-2022 ADVANCE DIRECTIVE DISCUSSION ADVANCE DIRECTIVE DISCUSSION [facility] Start: 06-26-2022 DEPRESSION ASSESSMENT DEPRESSION ASS ESSMENT [facility] Start: 12-20-2021 [facility] Work Phone: Start: 12-20-2021 [facility] Work Phone: Start: 06-16-2021 COVID-19 VACCINE (4 - Booster for Moderna series) COVID-19 VACCINE (4 - Booster for Moderna series) [facility] Start: 2010 BONE DENSITY BONE DENSITY [facility] Start: 2010 PNEUMOCOCCAL: 65+ (1 - PCV) PNEUMOCOCCAL: 65+ (1 - PCV) [facility] Start: 1995 SHINGRIX VACCINE (1 of 2) SHINGRIX VACCINE (1 of 2) [facility] Start: 1990 DIABETES SCREEN DIABETES SCREEN [facility] Start: 1964 Urine microalbumin profile DTAP,TDAP,TD (1 - Tdap) [facility] Start: 1963 HEPATITIS C SCREENING HEPATITIS C SC BLANCO [facility] Patient Education Hemorrhoids (DC) [facility] Work Phone: Immunizations Immunization Date Immunization Notes Care Provider Fa cili 04-16-2021 COVID-19 mRNA-1273 (Moderna) MD Gisella Porter Work Phone: [facility] 09-01-2020 COVID-19 mRNA-1273 (Moderna) MD Gisella Porter Work Phone: [facility] 08-03-2020 COVID-19 mRNA-1273 (Moderna) MD Gisella Porter Work Phone: [facility] Payers Date Payer Category Payer Private Health Insurance [facility] AAR SUPPLEMENT [id number] 2022-Present [phone] [address] [place] [address] Indemnity [id number] 2021 Self-pay [id number] 2010 Medicare MEDICARE MEDICAR E A AND B [id number] 2010-Present [phone] [place] [address] Medicare [id number] 1959 Medicare [id number] 1959 Unknown [id number] 1945 Unknown [id number] [id number] .593 1945 Unknown [id number] [id number] .593 1945 Unknown [id number] 2.16.840.1.509231.3.579.2 .593 1945 Unknown [id number] 2.16.840.1.692780.3.579.2 .593 1945 Unknown [id number] 2.16.840.1.299664.3.579.2 .593 1945 Unknown [id number] 2.16.840.1.951250.3.579.2 .593 1945 Unknown [id number] 2.16.840.1.236319.3.579.2 .593 Unknown [id number] 2.16.840.1.500450.3.579.2 .531 Unknown [id number] 2.16.840.1.255734.3.579.2 .531 Unknown [id number] 2.16.840.1.031021.3.579.2 .531 Unknown [id number] 2.16.840.1.660210.3.579.2 .531 Unknown [id number] 2.16.840.1.021036.3.579.2 .531 Unknown [id number] [id number] .531 Social History Date Type Detail Facility Unknown if ever smoked [facility] Other Sex Assigned At Sex Assigned At Bir [facility] Other Start: 12-20-2021 End: 09-21-2022 Tobacco smoking status NHIS Never smoked tobacco (finding) [facility] Start: 1945 Sex Assigned At Female F [facility] Start: 10-27-2022 Tobacco use and exposure Smokeless tobacco non-user [facility] Start: 10-27-2022 Alcohol intake Lifetime non-d alison (finding) [facility] Start: 1945 Sex Assigned At Not on file C [facility] Medical Equipment Procedure Code Equipment Code Equipment Origin al Text Equipment Identifier Dates Arthroplasty, knee, total, minimally invasive Orthopaedic cement, non-medicated [id number] FDA Start: 12-20-2021 Arthroplasty, knee, total, minimally invasive Uncoated knee femur prosthesis ()[id number] FDA Start: 12-20-2021 Arthroplasty, knee, total, minimally invasive Tibial insert ()[id number] FDA Start: 12-20-2021 Arthroplasty, knee, total, minimally invasive Uncoated knee tibia prosthesis, metallic ()[id number] FDA Start: 12-20-2021 Arthroplasty, knee, total, minimally invasive Polyethylene patella prosthesis ()[id number] FDA Start: 12-20-2021 Goals Date Patient Goal Desired Activity /State Clinical Notes 04-20-2021 to 04-10-2023 Note Date & Type Note Facility 04-10-2023 Evaluation note Encounter Date Diagnosis Assessment Notes Mar, IBS (irritable bowel syndrome) (ICD-10 - K58.9) [facility] Other 07-12-2023 Evaluation note* Encounter Date Diagnosis Assessment Notes Treatment Notes Treatment Clinical Notes Dec, Primary osteoarthrit is of first carpometacarpal joint of left hand (ICD-10 - M18.12) Progress as tolerated Discussed DIP fusions Dec, Trigger ring finger of left hand (ICD-10 - M65.342) Dec, Left hand pain (ICD- 10 - M79.642) [facility] Other 06-14-2023 Evaluation note* Encounter Date Diagnosis Assessment Notes Treatment Notes Treatment Clinical Notes Nov, Primary osteoarthrit is of first carpometacarpal joint of left hand (ICD-10 - M18.12) Extensive discussion about current condition and treatment options available. Patient was prepped and cortisone was injected into the left thumb CMC joint under sterile conditions. Patient tolerated well with no adverse reactions. Activity as tolerated. Nov, Trigger ring finger of left hand (ICD-10 - M65.342) This appears to trigger finger. We discussed the cause of this condition and the treatment options. We discussed stretching of the finger as well as massage of the palmar MCP region. We discussed the use of cortisone injection into the palmar aspect of the hand at the trigger site can be helpful in relieving painful symptoms. We also discussed the option of surgical release which can eliminate the problem. Patient was prepped and cortisone was injected into the left ring finger tendon sheath under sterile conditions. Patient tolerated well with no adverse reactions. Nov, Left hand pain (ICD- 10 - M79.642) [facility] Other 05-04-2023 NoteHNO ID: [id number] Author: Funmilayo Odell MD Service: ? Author Type: Physician Type: Progress Notes Filed: 10/27/2022 2:35 PM Note Text: COLORECTAL SURGERY October 27, 2022 Yordy Yeboah 77 year old This consult was requested by Dr. Manoj Forbes and my final recommendations will be communicated to the requesting health care provider by way of the shared medical record for internal providers or letter via the [employer] for external providers. Chief Complaint: hemorrhoids History of Present Illness: Yordy Yeboah is a 77 year old female presents today for evaluation of hemorrhoids. Sigmoidoscopy 09/21/22 - Dr. Forbes Findings: - There is small hypervascular appearing internal hemorrhoids extending down below the dentate line, comprising an external component as well. She reports some intermittent painless rectal bleeding. Flexible sigmoidoscopy showed hemorrhoids. No issues with bowel movements No past medical history on file. No past surgical history on file. No current outpatient medications on file. No current facility-administered medications for this visit. ALLERGIES Not on File No family history on file. Physical Exam: BP 137/74 (BP Site: Left Arm, BP Position: Sitting, BP Cuff Size: Regular Adult) Pulse 98 SpO2 96% General Appearance: Well appearing, alert, in no acute distress, well-hydrated, well nourished. Anorectal: External exam reveals no lesions. 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 After digital exam with a lubricated finger, the scope was easily inserted. Moderately enlarged right anterior and left lateral internal hemorrhoids were noted. Otherwise normal mucosa was noted. Anoscopy completed. Preoperative diagnosis: First to second degree hemorrhoids. Procedure: Anoscopy, rubber band ligation of hemorrhoids. Postoperative diagnosis: Same Indications: This 77 year old was found to have internal hemorrhoids that were not suitable for conservative management. Description of procedure: The patient was placed in the chest-knee position. A time out was completed. A digital rectal exam was performed. A lubricated anoscope was inserted into the anal canal. The three hemorrhoidal pedicles were identified and the redundant rectal mucosa just above the largest internal hemorrhoids (left lateral, right anterior) suctioned. Using the applicator, 2 rubber bands were placed around the tissue and were noted to be in good position. The mucosa was inspected for bleeding prior to withdrawal of the anoscope. The patient tolerated the procedure well with no excessive pain. Assessment Assessment and Plan: Yordy Yeboah is a 77 year old female status post rubber band ligation of enlarged left lateral and right anterior internal hemorrhoids. We talked about psyllium fiber supplementation and increasing water intake. She will return to see me as needed Medical Decision Making: Data Reviewed: Tests AND Documents Reviewed/ordered: Review of prior notes from Dr. Forbes Review of Labs: CBC, BMP Review of Procedures / Tests: Flexible Sigmoidoscopy Risk of morbidity, mortality and/or complications of treatment plan: moderate Funmilayo Odell [facility] History of Present illness Narrative* Funmilayo Odell MD - 10/27/2022 2:00 PM EDT COLORECTAL SURGERY October 27, 2022 Yordy Yeboah 77 year old This consult was requested by Dr. Manoj Forbes and my final recommendations will be communicated to the requesting health care provider by way of the shared medical record for internal providers or letter via the [employer] for external providers. Chief Complaint: hemorrhoids History of Present Illness: Yordy Yeboah is a 77 year old female presents today for evaluation of hemorrhoids. Sigmoidoscopy 09/21/22 - Dr. Forbes Findings: - There is small hypervascular appearing internal hemorrhoids extending down below the dentate line, comprising an external component as well. She reports some intermittent painless rectal bleeding. Flexible sigmoidoscopy showed hemorrhoids. No issues with bowel movements No past medical history on file. No past surgical history on file. No current outpatient medications on file. No current facility-administered medications for this visit. ALLERGIES Not on File No family history on file. Physical Exam: BP 137/74 (BP Site: Left Arm, BP Position: Sitting, BP Cuff Size: Regular Adult) Pulse 98 SpO2 96% General Appearance: Well appearing, alert, in no acute distress, well-hydrated, well nourished. Anorectal: External exam reveals no lesions. 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 After digital exam with a lubricated finger, the scope was easily inserted. Moderately enlarged right anterior and left lateral internal hemorrhoids were noted. Otherwise normal mucosa was noted. Anoscopy completed. Preoperative diagnosis: First to second degree hemorrhoids. Procedure: Anoscopy, rubber band ligation of hemorrhoids. Postoperative diagnosis: Same Indications: This 77 year old was found to have internal hemorrhoids that were not suitable for conservative management. Description of procedure: The patient was placed in the chest-knee position. A time out was completed. A digital rectal exam was performed. A lubricated anoscope was inserted into the anal canal. The three hemorrhoidal pedicles were identified and the redundant rectal mucosa just above the largest internal hemorrhoids (left lateral, right anterior) suctioned. Using the applicator, 2 rubber bands were placed around the tissue and were noted to be in good position. The mucosa was inspected for bleeding prior to withdrawal of the anoscope. The patient tolerated the procedure well with no excessive pain. Assessment Assessment and Plan: Yordy Yeboah is a 77 year old female status post rubber band ligation of enlarged left lateral and right anterior internal hemorrhoids. We talked about psyllium fiber supplementation and increasing water intake. She will return to see me as needed Medical Decision Making: Data Reviewed: Tests & Documents Reviewed/ordered: Review of prior notes from Dr. Forbes Review of Labs: CBC, BMP Review of Procedures / Tests: Flexible Sigmoidoscopy Risk of morbidity, mortality and/or complications of treatment plan: moderate Funmilayo Odell MD Colorectal Surgery [facility] Nurse Note* Maribell Joiner RN - 10/27/2022 1:57 PM EDT What is the reason for your visit today? New patient consult for hemorrhoids Who is your referring physician? Are you having poor oral intake? NO Have you had unintentional weight loss of 15 lbs/7 Kg in the last 3-6 months? NO Bowels: soft /with occasional bleeding Wound: none Temperature: No Drains: No documented in [facility] Evaluation note* Encounter Date Diagnosis Assessment Notes Treatment Notes Treatment Clinical Notes Aug, Hemorrhoids (ICD-10 - K64.9) [facility] Other 03-29-2023 Procedure [facility]02-09-2023 Evaluation note* Encounter Date Diagnosis Assessment Notes Treatment Notes Treatment Clinical Notes Jul, IBS (irritable bowel syndrome) (ICD-10 - K58.9) [facility] Other 01-12-2023 NotePROCEDURE: XR HAND RT MIN 3V HISTORY: Localized swelling of right upper limb ; lump in area of fifth carpometacarpal joint. COMPARISON: None. FINDINGS: BONES:Advanced degenerative changes of the interphalangeal joints of all 5 digits. Multifocal mild degenerative changes of the carpal-metacarpal joint. Marked degenerative changes of the scaphoid triquetral joint and the triquetrum-first metacarpal joint. SOFT TISSUES:Rounded soft tissue mass within the dorsum of hand overlying fifth metacarpal. EFFUSION:None visible. OTHER: Negative. IMPRESSION: 1. Soft tissue mass along dorsal surface of fifth metacarpal region of uncertain etiology; no bone involvement or radiopaque foreign body. 2. Multifocal advanced degenerative joint disease favoring osteoarthritis. Electronically authenticated by: VIDYA CHAUDHARY Date: 2022-07-07 12:06[facility]10-10[facility] Evaluation note* Encounter Date Diagnosis Assessment Notes Treatment Notes Treatment Clinical Notes Mar, IBS (irritable bowel syndrome) (ICD-10 - K58.9) [facility] Other 08-10-2022 Evaluation note* Encounter Date Diagnosis Assessment Notes Treatment Notes Treatment Clinical Notes Jan, Primary osteoarthritis of right knee (ICD-10 - M17.11) Jan, History of total right knee replacement (ICD-10 - Z96.651) Jan, Age-related osteoporosis without current pathological fracture (ICD-10 - M81.0) Jan, Other group home (current) drug therapy (ICD-10 - Z79.899) Jan, Trochanteric bursitis of right hip (ICD-10 - M70.61) Jan, Other [facility] R TKA at [facility] on 12/20/2021 Overall I think she is doing very well. The stitch that popped up in the proximal aspect the incision was removed. Patient tolerated this well. Patient may continue activities as tolerated. Recommended continuing physical therapy not only for her knee but also for greater trochanteric bursitis. Continue taking qhlg-zts-yxwutnr anti-inflammatories as needed for assistance with swelling and pain associated with the operative extremity. I have also prescribed her some iron and vitamin C in the event that she did have some low postoperative hemoglobin. Follow-up in 6 weeks for repeat examination and long standing x-rays. [facility] Other 07-13-2022 Evaluation note* Encounter Date Diagnosis Assessment Notes Treatment Notes Treatment Clinical Notes Dec, Primary osteoarthritis of right knee (ICD-10 - M17.11) Dec, History of total right knee replacement (ICD-10 - Z96.651) Dec, Age-related osteoporosis without current pathological fracture (ICD-10 - M81.0) Dec, Other group home (current) drug therapy (ICD-10 - Z79.899) Dec, Other [facility] R TKA at [facility] on 12/20/2021 Doing well. Zipline was removed. Steri-Strips were applied. In regards to the outside part of the hip and buttock pain, I recommended that we keep a close eye on this as she goes through the rehab process. If this becomes a limiting factor I told her to give me a call so we can look into it a little bit further. Patient may continue activities as tolerated. They are weightbearing as tolerated to the operative extremity and will begin outpatient PT. Patient given refill of tramadol. They will continue to take Celebrex and Tylenol as needed for assistance with swelling and pain associated with the operative extremity. Patient to continue their aspirin DVT prophylaxis as previously instructed. This includes wearing their NITESH hose on the operative extremity for another two weeks. Follow-up in 4 weeks for repeat examination and 3 view x-rays of the right knee. [facility] Other 06-17-2022 Evaluation note* Encounter Date Diagnosis Assessment Notes Treatment Notes Treatment Clinical Notes Nov, Other Prolonged Servi janny 1. H and P date: 12/01/2021 2. Diagnosis: Right knee primary osteoarthritis 3. Counseling: Patient received counseling at their history and physical 4. Coordination of care: The patient was discussed at today's total joints meeting with anesthesia, OR staff, and implant reps in an effort to coordinate the patient's care during the perioperative period. The anesthesiologist was involved in discussions regarding the patient's pain management such as regional blocks, anesthesia plans the day of surgery such as general versus spinal, as well as a final review of lab work to ensure the patient could proceed with surgery safely. The hospice manager was vital for surgery timing and scheduling purposes. The implant rep was also available for necessary discussions regarding preoperative templates that were created on preoperative x-rays to ensure the appropriate implants and sizes of implants would be available the day of surgery. The patient's discharge plan was also discussed and the final decision was confirmed. 5. Medication Changes: None 6. Lab Tests: The patient's screening tests including albumin levels, vitamin D levels, hemoglobin, hemoglobin A1c, cotinine serum level, and MRSA nasal cultures were all reviewed to ensure appropriate perioperative care can be performed. This included selection of perioperative antibiotics, surgical dressing, and any contact precautions that may need to be enacted. The patient's presurgical testing lab work was also reviewed. This included a CBC, BMP, UA, fructosamine, and a blood type and screen. This lab work was discussed with anesthesia during today's total joints meeting to ensure the patient could proceed with surgery safely. 7. Review of reports/records: The surgical clearance information provided by the patient's PCP and if deemed necessary, other specialists, was reviewed. Any recommendations made by these care providers were taken into consideration for the patient's perioperative and postoperative treatment plans. Prolonged services time spent: 32 minutes [facility] Other 06-17-2022 Evaluation note* Encounter Date Diagnosis Assessment Notes Treatment Notes Treatment Clinical Notes Nov, Primary osteoarthritis of right knee (ICD-10 - M17.11) [facility] Other 06-08-2022 Evaluation note* Encounter Date Diagnosis Assessment Notes Treatment Notes Treatment Clinical Notes Nov, Age-related osteoporosis without current pathological fracture (ICD-10 - M81.0) Nov, Primary osteoarthritis of right knee (ICD-10 - M17.11) Nov, Other group home (current) drug therapy (ICD-10 - Z79.899) Nov, Other 1. Right TKA Home Medications - DVT prophylaxis: Aspirin - NSAID: Celebrex - Disposition: Same-day discharge-patient will be at home with her and he will be able to help her throughout the postoperative process. He has had both of his knees replaced and the patient's had her left knee replaced previously. Joints Meeting Checklist - Pharmacy: [facility] to bed - Approach/Technique: CLEMENCIA - Implants: Persona; - Anesthesia: General - Blocks: Adductor, iPACK - Preop Antibiotics: Ancef and Vanco - TXA: yes-systemic - Positioning/OR Bed: supine on regular bed - Intraop X-ray: no - Rodrigues: no - Tourniquet: yes - Antibiotic powder: yes-2 grams of vanc - Antibiotic cement: No - Dressing: Zipline The patient has tried and failed all conservative treatment options to include: activity modification, physical therapy, oral anti-inflammatories , and intra-articular steroid injections. We will move forward with the definitive treatment option and schedule the patient for the above mentioned procedure. The risks involved with surgery and postoperative complications were discussed in relation to the patient's non-modifiable risk factors including but not limited to the following: Hypothyroidism Hyperlipidemia All questions were answered after discussing these increased risks. The patient voiced understanding of these increased risks and still wishes to proceed with surgery. 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 Maldonado. All questions were answered after discussing these increased risks. The patient voiced understanding of these increased risks and still wishes to proceed with surgery. The risks and benefits of the surgery were reviewed in depth with the patient, and all questions were answered. Informed consent was obtained. The risks and potential complications of the surgery include, but are not limited to: avascular necrosis, nonunion, nerve injury, blood vessel injury, excessive bleeding, blood transfusion, infection, persistent pain, loss of fixation, failure of the implant, deep vein thrombosis, pulmonary embolus, loss of limb, fracture, leg length discrepancy, and . Patient voiced understanding of these risks and has elected to proceed with the above surgery. 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 Right TKA - DVT prophylaxis: Aspirin - Antibiotics: Ancef - NSAID: Celebrex - Implants: Persona - Disposition: Same-day discharge-she lives at home with her and she tells me that he would be available to help her in the immediate postop period 2. Preop screening labs will be ordered including: - hemoglobin - serum albumin - 25-OH Vit D - HgbA1c - serum cotinine - MRSA nasal culture 3. Patient will obtain preop clearances including: -PCP 4. Once our office has reviewed the above labs and clearances, we will contact the patient to discuss surgery scheduling. Patient is in agreement with the above plan. 5. The risks involved with surgery and postoperative complications were discussed in relation to the patient's nonmodifiable risk factors including but not limited to the following: Hypothyroidism Hyperlipidemia All questions were answered after discussing these increased risks. The patient voiced understanding of these increased risks and still wishes to proceed with surgery. 6. The risks involved with surgery and postoperative complications were discussed in relation to the patient's modifiable risk factors including but not limited to the following: None identified at this time All questions were answered after discussing these increased risks. The patient voiced understanding of these increased risks and still wishes to proceed with surgery. The patient has tried and failed all conservative treatment options to include: oral anti-inflammatories , intra-articular steroid injections, physical therapy, and assistive devices. We will move forward with the definitive treatment option and schedule the patient for the above mentioned procedure after we have reviewed screening labs and clearances. Patient understands abnormal screening labs or absent clearances could delay their surgery. [facility] Other 02-18-2022 Evaluation note* Encounter Date Diagnosis Assessment Notes Treatment Notes Treatment Clinical Notes Jul, History of total right hip arthroplasty (ICD-10 - Z96.641) Jul, Primary osteoarthritis of right knee (ICD-10 - M17.11) The patient is suffering from degenerative arthritis involving the knee. We discussed the conservative treatment options which can be beneficial in relieving pain, including gentle non-impact motion exercise and non-steroidal anti-inflammatory medication. We discussed the use of occasional cortisone injections that can provide pain relief as well as hyaluronan lubricant injection. We performed a 7/3cc marcaine / kenalog cortisone injection into the knee joint under sterile technique. Patient tolerated the injection well without adverse reaction. Jul, Other 1. We had a long discussion with the patient today concerning their right knee osteoarthritis. The radiographs do show osteoarthritis of the knee. At this time the patient would like to avoid surgical intervention. We did discuss the risk and benefits of surgical versus nonoperative management. The patient would like to proceed with nonoperative management. We discussed that our options include injections, physical therapy, and the consistent use of anti-inflammatories. All 3 of these options, including their risks and benefits, were discussed at length with the patient. 2. Tylenol: Discussed taking Tylenol (acetaminophen). Recommended adjusting their dosing to 1000mg by mouth up to 3 times a day. 3. NSAIDs: Continue etodolac as she was previously prescribed 4. Physical therapy: Discussed formal physical therapy and home regimen. Patient preferred continuing her home exercises. 5. Injections: Discussed injections as a treatment option. After consent was obtained, the right knee was injected with 3cc Kenalog and 7cc bupivicaine using sterile technique. Patient tolerated the injection well. 6. Follow up 3 months [facility] Other 10-26-2021 Evaluation note* Encounter Date Diagnosis Assessment Notes Treatment Notes Treatment Clinical Notes Mar, IBS (irritable bowel syndrome) (ICD-10 - K58.9) Colonoscopy Follow up in 1 year Mar, Special screening for malignant neoplasms, colon (ICD-10 - Z12.11) [facility] Other Evaluation noteNo assessment information available [facility] Work Phone: Evaluation note* Diagnosis Hemorrhoids, unspecified hemorrhoid type- Primary documented in this encounter [facility] Author Manoj Forbes [facility] September 21, 2022 10:51am Note Date/Time September 21, 2022 10: 51am [facility] [address] [place] [address] Gastroenterology H&P Signed Patient: Yordy Yeboah MR#: [id number] : 1945 Acct:[id number] Age/Sex: 77 / F Adm Date: 3 Loc: Room: Type: [facility] Attending Dr: Manoj Forbes MD Copies to: MD Gisella Rider MD~ Date of Service: 09/21/2022 HISTORY & PHYSICAL: Patient's history with special attention to the cardiovascular, pulmonary systems and the current problem was reviewed with the patient immediately prior to the procedure. Present medications and doses reviewed in the EMR. Allergies and pertinent laboratory tests were also reviewedat this time in the EMR. The physical examination, as below, was then performed. Indication, assessment and HPI: 77-year-old female presents for flexible sigmoidoscopy to evaluate history of rectal bleeding Family history of GI malignancy? No PHYSICAL EXAMINATION Mouth and Pharynx : Moist mucus membranes, normal dentition Cardiac: Regular rate, regular rhythm Pulmonary: Clear to auscultation bilaterally, no wheezing Neurological: Alert and oriented x3, no focal deficits noted Abdome Abdomen soft, non-tenderr] REVIEW OF SYSTEMS Constitutional: Denies malaise, fevers Cardiovascular: Denies chest pain, palpitations Respiratory: Denies shortness of breath, wheezing Gastrointestinal: Per HPI Genitourinary: Denies dysuria, polyuria Musculoskeletal: Denies joint swelling, joint stiffness Neurological: Denies numbness, tingling Integumentary: Denies rashes, skin lesions Endocrine: Denies fatigue, weight loss Written informed consent obtained from the patient. Risks (including but not limited to perforation, infection, bloating, bleeding, need for emergent surgery and loss of life), benefits and alternatives explained and questions answered. The patient verbalized understanding. Based on history patient is an appropriate candidate for the procedure. Manoj Forbes MD Documented By: Manoj Forbes MD 09/21/22 1050 Signed By: <Electronically signed by Manoj Forbes MD> 09/21/22 1051 [facility] Work Phone: [facility] general Narrative - Reported* Type Description Date Surgical History THYROID Surgical History LEFT KNEE REPLAEMENT Surgical History HYSTERECTOMY Surgical History BILATERAL FOOT SURGERY Surgical History HIP REPLACEMENT RIGHT Hospitalization History Stomach pains 1 night Ql[facility] Other History general Narrative - Reported* Type Description Date Medical History Arthritis Medical History IBS Medical History thyroid disease Medical History high cholesterol Surgical History THYROID Surgical History LEFT KNEE REPLAEMENT Surgical History HYSTERECTOMY Surgical History BILATERAL FOOT SURGERY Surgical History HIP REPLACEMENT RIGHT Hospitalization History Stomach pains 1 night [facility] Other Hospital Discharge instructions Additional Instructions DISCHARGE INSTRUCTIONS FOR FLEXIBLE SIGMOIDOSCOPY WHAT TO EXPECT: - You may feel full, gassy or cramping after your procedure. In some cases, this may be from a few hours to a day. Walking may help relieve the discomfort. - If you have polyp(s) removed you may note some minor bloody discharge after your first bowel movements. - You should begin to recover from anesthesia within 1 hour of the procedure, however may feel groggy for the next 24 hours. DO's AND DON'Ts: - Call your doctor right away if you have a hard abdomen, severe pain, are passing lots of bright red blood or clots. - Call your doctor if you develop any rashes, hives or difficulty breathing. - Let your doctor know if you have not had a bowel movement by 3 days after your procedure. - If you take 81 mg aspirin for your heart it is safe to resume this medication. - If you take other blood thinner medications your doctor will instruct you when these can safely be resumed. - Do NOT drive for 24 hours. - Do NOT operate machinery such as power tools, lawn mowers, snow blowers, sewing machines, etc. for 24 hours. - Avoid alcoholic beverages and drugs for allergies, nerves, or sleep. - Do NOT stay alone. Do NOT leave your child unattended. - Do NOT make important personal or business decisions or sign any legal documents. - Eat solid foods and drink liquids in smaller amounts than usual until normal appetite returns. If you should experience an upset stomach, liquids high in sugar content (soda, Alex-Aid, non-acid juices) are recommended. - You can resume normal activities tomorrow. FOLLOW UP & RECOMMENDATIONS: -Dr. Forbes's office will give you referral to colorectal surgery -Notify the doctor if you have any problems. -Follow up with PCP. -Office number [phone].[facility] Work Phone: Reason for referral (narrative)* Reason *FU 09/30 Consult for hemorrhoids. Referral faxed to Dr. Odell Diagnosis 1 Hemorrhoids (K64.9) Referral Organization [facility] Referring Provider First Name Manoj Referring Provider Last Name Leidy Referring Provider Specialty Gastroenter ology Referred Organization [facility] Referred Provider FUNMILAYO ODELL Referred Address [address] [place], [place],[address] Referred Provider Specialty Colorectal S urgery Referral Priority Routine General Notes De GuzmanMelissa 0 09/23/2022 10:05:39 AM > Referral faxed by office. Qlue Other Chief Complaint and Reason for Visit Chief Complaint Knee Pain Knee Pain Knee Pain Z96.651 Right TKA/post-op Chief Complaint Knee Pain Knee Pain Z96.651 Right TKA/post-op Chief Complaint Bright Red Per Rectu m, Anemia Chief Complaint R22.31 Family History Relationship Condition Age at Onset Recorded Date/T chalo father Heart disease Unknown Not Specified Alzheimer's dementia Unknown family member Malignant neoplasm of colon Unknown grandparent Malignant neoplasm of colon Unknown Advance Directives Advance Directive Response Recorded Date/ Time Advance Directives Yes October 02 10:10am Summary Purpose Additional Source Comments REASON FOR VISIT (unrecogniz ed section and content) REFILLS Reason Comments New Patient Consult for hemorrho ids Care Teams (unrecognized sec tion and content) Team Status: Inactive Member Role Status Dates Gisella Porter MD Primary Care Provider Active Sydney Erickson II, MD Attending Provider Active Team Status: Active Member Role Status Dates Gisella Porter MD Primary Care Provider Active Team Status: Inactive Member Role Status Dates Gisella Porter MD Primary Care Provider Active Manoj Forbes MD Attending Provider Active [employer]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 Specialty Start Date End Date Daryl [address] [place] [address] PCP - General 10/11/00 Team Status: Inactive Member Role Status Dates Gisella Porter MD Primary Care Provider Active Ivette Taylor MD Attending Provider Active INFORMATION SOURCE (unrecogn ized section and content) DATE CREATED AUTHOR 08/30/2022 [facility] DATE CREATED AUTHOR AUTHOR'S ORGANIZ ATION 10/29/2022 [facility] DATE CREATED AUTHOR AUTHOR'S ORGANIZ ATION 12/30/2022 [facility] Source Comments (unrecognize d section and content) In the event this informatio n is protected by the Federal Confidentiality of Alcohol and Drug Abuse Patient Records regulations: The Federal rules restrict any use of the information to criminally investigate or prosecute any alcohol or drug abuse patient.[facility] Goals (unrecognized section and content) Goals may be documented in a n alternate section FOR RECORDS PERTAINING TO PATIENTS WHO ARE OR HAVE BEEN ENROLLED IN A CHEMICAL DEPENDENCY/SUBSTANCEABUSE PROGRAM, SOME INFORMATION MAY BE OMITTED. This clinical summary was aggregated from multiple sources. Caution should be exercised in using it in the provision of clinical care. This summary normalizes information from multiple sources, and as a consequence, information in this document may materially change the coding, format and clinical context of patient data. In addition, data may be omitted in some cases. CLINICAL DECISIONS SHOULD BE BASED ON THE PRIMARY CLINICAL RECORDS. [facility] [employer] [facility] [employer] [facility]. provides no warranty or guarantee of the accuracy or completeness of information in this document.
[2023-09-01 09:22] LABS: Basophils Absolute Auto 0.1 10^3/uL (0.0-0.1); Basophils Percent Auto 1.2 % (0.2-2.0); Eosinophils Absolute Auto 0.3 10^3/uL (0.0-0.7); Eosinophils Percent Auto 7.2 % (0.9-7.0); Hematocrit 36.5 % (36.0-48.0); Hemoglobin 11.8 g/dL (12.0-16.0); Immature Granulocytes Abs Auto 0.02 10^3/uL (0.00-0.03); Immature Granulocytes Pct Auto 0.5 % (0.0-0.5); Lymphocytes Absolute Auto 1.2 10^3/uL (1.2-3.8); Lymphocytes Percent Auto 29.3 % (20.5-60.0); Mean Corpuscular HGB Conc 32.3 g/dL (29.9-35.2); Mean Corpuscular Hemoglobin 29.9 pg (26.7-34.0); Mean Corpuscular Volume 92.4 fL (81.0-99.0); Mean Platelet Volume 9.1 fL (9.5-13.5); Monocytes Absolute Auto 0.6 10^3/uL (0.3-0.8); Monocytes Percent Auto 14.9 % (1.7-12.0); Neutrophils Absolute Auto 1.9 10^3/uL (1.4-6.5); Neutrophils Percent Auto 46.9 % (43.0-75.0); Platelet Count 240 10^3/uL (150-450); Red Blood Count 3.95 10^6/uL (4.20-5.40); Red Cell Distribution Width 12.2 % (11.0-15.0)
[2023-09-01 11:23] LABS: Alanine Aminotransferase 30 U/L (14-59); Albumin Globulin Ratio 0.7; Albumin Level 2.9 g/dL (3.4-5.0); Alkaline Phosphatase 73 U/L (46-116); Anion Gap 10.5; Aspartate Amino Transferase 26 U/L (15-37); BUN Creatinine Ratio 14.4; Bilirubin Total 0.5 mg/dL (0.2-1.0); Calcium 8.6 mg/dL (8.5-10.1); Carbon Dioxide 29.5 mmol/L (21.0-32.0); Chloride 105 mmol/L (98-107); Estimated GFR (African America >60 (>=60); Estimated GFR (Non-African Ame >60 (>=60); Globulin 3.9 g/dL; Glucose 92 mg/dL (74-106); Sodium 141 mmol/L (136-145); Total Protein 6.8 g/dL (6.4-8.2)
== END 2023-09-01 09:09 | disposition home or self-care (01) ==
LOC: LAB 09:10
PROVIDERS: PCP Family Medicine; Visit Provider Registered Nurse
DX: M15.0 Primary generalized (osteo)arthritis (principal); Z79.899 Other long term (current) drug therapy
CPT/HCPCS: 36415; 80053; 85025

== ENCOUNTER 2024-03-05 10:38 | Outpatient (OUT) | payer MEDICARE, SELFPAY ==
--- OUTSIDE RECORDS SUMMARY | 2024-03-05 10:59 | XMS_ITS | CCD ---
Author Organization [facility] CliniSyoh Care Team Providers Care Acute Care Physical Therapist Name Role Phone Manoj Forbes Unavailable Sydney Erickson II Unavailable [phone] MD Gisella Porter Primary Care Provider [phone] MD Sydney Erickson II Attending Provider MD Gisella Porter Primary Care Provider [phone] MD Sydney Erickson II Attending Provider NICKO, DR HOOVER Admitting Unavailable MISC, DR HOOVER Attending Unavailable HOY ., DR OBANDO Primary Care Unavailable MISC, DR HOOVER Consulting Unavailable HOY ., DR OBANDO Admitting Unavailable HOY ., DR OBANDO Attending Unavailable HOY ., DR OBANDO Primary Care Unavailable HOY ., DR OBANDO Consulting Unavailable [facility], DR VIDYA Strong Consulting Unavailable HOY ., DR OBANDO Admitting Unavailable HOY ., DR OBANDO Attending Unavailable HOY ., DR OBANDO Primary Care Unavailable HOY ., DR OBANDO Consulting Unavailable HOY ., DR OBANDO Admitting Unavailable HOY ., DR OBANDO Attending Unavailable HOY ., DR OBANDO Primary Care Unavailable HOY ., DR OBANDO Consulting Unavailable CLIMAX, DR FUNMILAYO Ramirez Consulting Unavailable TYRONE, DR LONDON Attending Unavailable MISC, DR HOOVER Admitting Unavailable MISC, DR HOOVER Primary Care Unavailable MISC, DR HOOVER Consulting Unavailable SYDNEY ERICKSON Admitting Unavailable SYDNEY ERICKSON Attending Unavailable HOY ., DR OBANDO Primary Care Unavailable SYDNEY ERICKSON Consulting Unavailable MISC, DR HOOVER Admitting Unavailable MISC, DR HOOVER Attending Unavailable PEDRO PABLO ., DR OBANDO Primary Care Unavailable MISC, DR HOOVER Consulting Unavailable MD Gisella Porter Primary Care Provider [phone] MD Manoj Forbes Attending Provider Daryl Austin Primary Care Provider UnavailMD Ivette Treadwell Attending Provider MD Gisella Porter Primary Care Provider MD Sydney Erickson II Attending Provider Darek FREGOSO, [place] Attending Unavailabl Gisella Han Primary Care Unavailable Darek FREGOSO, [place] Admitting Unavailabl e Gisella Porter Primary Care Unavailable Ivette Taylor Admitting Unavailable Ivette Taylor Attending Unavailable Darek FREGOSO, [place] Attending Unavailabl janny Erickson II, [place] Admitting Unavailabl e Gisella Potrer Primary Care Unavailable Darek FREGOSO, [place] Admitting Unavailabl e Darek FREGOSO, [place] Attending Unavailabl Gisella Han Primary Care Unavailable Manoj Forbes Admitting Unavailable Manoj Forbes Attending Unavailable Gisella Porter Primary Care Unavailable Darek FREGOSO, [place] Attending Unavailabl e Gisella Porter Primary Care Unavailable Darek FREGOSO, [place] Admitting Unavailabl Ivette Acosta Unavailable YakimaDaryl Primary Care Provider UnavailDaryl Viera Primary Care Provider UnavailMANOJ Childress Referring Unavailable FUNMILAYO ODELL Attending Unavailable MANOJ FORBES Referring Unavailable FUNMILAYO ODELL Attending Unavailable Daryl Austin Primary Care Provider UnavailGisella Tinajero MD Primary Care Provider [phone] FUNMILAYO ODELL Referring Unavailable ZAIDA SORIANO Referring Unavailable Allergies Allergy Classification Reported Allergen(s) Allergy Type Date of Onset Reaction(s) Facility (20 sources) Ciprofloxacin; Translations: [CIPROFLOXACIN] Drug Allergy 05-31-20 13 Rash, Unknown [facility] (20 sources) NITROFURANTOIN, MACROCRYSTALS / Nitrofurantoin, Monohydrate Drug Allergy 10-28-19 23 Other: See Comments, GI Upset [facility] (20 sources) Sulfamethoxazole / Trimethoprim Drug Allergy 05-31-20 13 Other: See Comments, Rash [facility] (3 sources) Ciprofloxacin; Translations: [Cipro] Drug Allergy 05-31-20 13 Unknown [facility] (3 sources) Sulfamethoxazole / Trimethoprim; Translations: [Bactrim] Drug Allergy 05-31-20 13 Unknown [facility] (6 sources) Nitrofurantoin; Translations: [nitrofurantoin] Drug Allergy 04-29-20 21 [facility] (6 sources) Sulfamethoxazole; Translations: [sulfamethoxazole] Drug Allergy 04-29-20 21 [facility] (6 sources) Trimethoprim; Translations: [trimethoprim] Drug Allergy 04-29-20 21 [facility] (1 source) Nitrofurantoin Drug Allergy 05-31-20 13 [facility] (1 source) Ciprofloxacin Drug Allergy 09-22-19 23 [facility] Repository (2 sources) Sulfamethoxazole / Trimethoprim; Translations: [SULFAMETHOXAZOLE-T RIMETHOPRIM] Drug Allergy 05-31-20 13 [facility] Repository (2 sources) NITROFURANTOIN MONOHYD/M-CRYST; Translations: [NITROFURANTOIN MONOHYD/M-CRYST] Propensity to adverse reactions to drug (disorder) 10-28-19 [facility] Rep[facility] Medications Current Medications Medication Drug Class(es) Dates Sig (Normalized) Sig (Original) acetaminophen 500 mg oral tablet (5 sources) Start: 12-01-2021 take 2 tablets by mouth every eight hours for pain Acetaminophen 500 MG 2 tablets for pain Orally every 8 hrs for 30 days MED TO BED UPON DISCHARGE DOS: 12/21/2021 08 Nov, 2021 Active amitriptyline hydrochloride 50 mg oral tablet (20 sources) Tricyclic Antidepressant Start: 09-21-2022 take 1 tablet by mouth once daily amitriptyline (ELAVIL) 50 mg tablet Take 50 mg by mouth once daily. 09/21/2022 Active Start: 04-29-2021 End: 09-21-2022 take 50 mg by mouth once daily at bedtime Amitriptyline Discontinued 50 MG PO Daily at bedtime April 29, 2021 12:00am September 21, 2022 10:01am Comment on above: Take 50 mg by mouth once daily. ascorbic acid 500 mg oral tablet (1 source) Vitamin C Start: take 1 tablet by mouth every twenty-four hours Vitamin C 500 MG 1 tablet Orally Once a day for 14 day(s) 10 Aug, 2022 Active celecoxib 200 mg oral capsule (8 sources) Nonsteroidal Anti-inflammatory Drug Start: 022 take 1 capsule by mouth every twelve hours Celecoxib 200 MG 1 capsule with food Orally Twice a day for 30 day(s) MED TO BED UPON DISCHARGE DOS: 12/21/2021 Nov, Active cholecalciferol 0.125 mg oral tablet (10 sources) Vitamin D Start: 021 take 1 tablet by mouth once daily cholecalciferol (VITAMIN D3) 5,000 unit tab Take 5,000 Units by mouth once daily. 04/29/2021 Active Start: 04-29-2021 take 1 tablet by kathie th once daily Cholecalciferol (Vitamin D3) (Vitamin D3) 125 mcg (5,000 unit) Tablet Active 125 MCG PO Daily April 29, 2021 12:00am Comment on above: Take 5,000 Units by mouth once daily. dicyclomine hydrochloride 20 mg oral tablet (20 sources) Anticholinergic Start: 01-13-20 15 take 1 tablet by mouth twice daily dicyclomine (BENTYL) 20 mg tablet Take 20 mg by mouth twice daily. 08/23/2022 Active Comment on above: Take 20 mg by mouth twice daily. docusate sodium 50 mg / sennosides, correction 8.6 mg oral tablet (5 sources) Start: 12-02-19 22 take 2 tablets by mouth every twenty-four hours Senokot S 8.6-50 MG 2 tablets Orally Once a day for 30 day(s) MED TO BED UPON DISCHARGE DOS: 12/21/2021 Nov, Active etodolac 500 mg oral tablet (19 sources) Nonsteroidal Anti-inflammatory Drug Start: 04-29-20 21 Etodolac 500 mg tablet Etodolac Active 500 MG PO Twice daily April 29, 2021 12:00am 04/29/2021 Active Start: 04-29-2021 take 500 mg by mouth [...] (20 sources) l-Thyroxi ne Start: 04-29-2021 take 1 tablet by mouth once daily levothyroxine (SYNTHROID) 112 mcg tablet Take 112 mcg by mouth once daily. 04/29/2021 Active take 1 tablet by kathie th once daily in the morning Levothyroxine Sodium 112 MCG 1 tablet on an empty stomach in the morning Orally Once a day for 30 day(s) Active Comment on above: Take 112 mcg by mout h once daily. rosuvastatin calcium 5 mg oral tablet (20 sources) HMG-CoA Reductase Inhibitor Start: take 1 tablet by mouth once daily rosuvastatin (CRESTOR) 5 mg tablet Take 5 mg by mouth once daily. 08/23/2022 Active Comment on above: Take 5 mg by mouth o nce daily. traMADol hydrochloride 50 mg oral tablet (19 sources) Opioid Agonist Start: traMADol (ULTRAM) 50 mg tablet as needed for pain. 12/12/2023 Active Start: 12-01-2021 take 1 tablet by kathie th every six hours as needed for pain traMADol HCl 50 MG 1 tablet as needed for pain Orally every 6 hrs for 10 days Dec, Not-Taking Start: 04-29-2021 End: 09-21-2022 take 50 mg by mouth twice daily Tramadol Discontinued 50 MG PO Twice daily April 29, 2021 12:00am September 21, 2022 10:01am Tramadol & Dietary Manage Pr od 50 MG (14 sources) Tramadol & Dieta [...] BED UPON DISCHARGE DOS: 12/21/2021 Nov, Not-Taking morphine sulfate 15 mg extended release oral tablet (8 sources) Opioid Agonist Start: 12-01-2021 take 1 tablet by mouth every twelve hours for pain Morphine Sulfate ER 15 MG 1 tablet for breakthrough pain only Orally every 12 hrs for 5 days MED TO BED UPON DISCHARGE DOS: 12/21/2021 Nov, Not-Taking omeprazole 20 mg delayed release oral capsule (5 sources) Proton Pump Inhibitor Start: 04-29-2021 End: 12-07-2021 take 20 mg by mouth once daily Omeprazole Discontinued 20 MG PO Daily April 29, 2021 12:00am December 07, 2021 1:17pm ondansetron 8 mg oral tablet (8 sources) Serotonin-3 Receptor Antagonist Start: 12-01-2021 take 1 tablet by mouth three times daily as needed for nausea Ondansetron HCl 8 MG 1 tablet as needed for nausea Orally three times a day for 10 days MED TO BED UPON DISCHARGE DOS: 12/21/2021 Nov, Not-Taking oxyCODONE hydrochloride 5 mg oral tablet (8 sources) Opioid Agonist Start: 12-01-2021 take 1 tablet by mouth every four hours as needed for pain oxyCODONE HCl 5 MG 1 tablet as needed for pain Orally every 4 hrs for 10 days MED TO BED UPON DISCHARGE DOS: 12/21/2021 Nov, Not-Taking polyethylene glycol 3350 00262 mg powder for oral solution (8 sources) Osmotic Laxative Start: 12-01-2021 MiraLax 17 GM 1 packet mixed with 8 ounces of fluid Orally Once a day for 7 days MED TO BED UPON DISCHARGE DOS: 12/21/2021 Nov, Not-Taking triamcinolone acetonide 40 mg/ml injectable suspension (19 sources) Corticosteroid Start: 12-07-2022 Kenalog-40 Nov, 20 mg Start: 08-13-2021 Kenalog -40 mg Jul, 120 mg Problems Active Problems Problem Classification Problem Date Documented Da te Episodic/Chronic Anal and rectal conditions (3 sources) Rectal prolapse; Translations: [Rectal prolapse] Onset: 4 02-28-2024 Episodic Cardiac dysrhythmias (3 sources) Tachycardia; Translations: [Tachycardia, unspecified] Onset: 4 02-28-2024 Episodic Deficiency and other anemia (1 source) Anemia, unspecified; Translations: [ANEMIA UNSPECIFIED] Onset: 2 Episodic Deficiency and other anemia (3 sources) Iron deficiency anemia; Translations: [Iron deficiency anemia, unspecified] Episodic Diabetes mellitus without complication (1 source) Other abnormal glucose; Translations: [OTHER ABNORMAL GLUCOSE] Onset: 2 Episodic Disorders of lipid metabolism (8 sources) Pure hypercholesterolemia, unspecified; Translations: [Hyperlipidemia, unspecified] Onset: 2 Chronic Gastrointestinal hemorrhage (5 sources) Gastrointestinal hemorrhage; Translations: [Hemorrhage of anus and rectum] Onset: 4 10-16-2023 Episodic Hemorrhoids (5 sources) Unspecified hemorrhoids; Translations: [Hemorrhoids] Onset: 4 Episodic Nutritional deficiencies (1 source) Vitamin D deficiency, unspecified; Translations: [VITAMIN D DEFICIENCY UNSPECIFIED] Onset: 2 Chronic Osteoarthritis (20 sources) Osteoarthritis of knee; Translations: [Unilateral primary osteoarthritis, left knee] Onset: 2 Resolved: 2 Chronic Osteoporosis (17 sources) Primary osteoporosis; Translations: [Age-related osteoporosis without current pathological fracture] Onset: 2 Resolved: 2 Chronic Other aftercare (6 sources) Patient encounter status; Translations: [Aftercare following joint replacement surgery] Chronic Other aftercare (5 sources) Other mcc (current) drug therapy; Translations: [OTH SHELTER CURRENT DRUG THERAPY] Onset: 2 Resolved: 2 Episodic Other bone disease and musculoskeletal deformities (1 source) Juvenile osteochondrosis of pelvis; 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] Onset: 3 Chronic Other connective tissue disease (14 sources) History of repair of hip joint; Translations: [Presence of right artificial hip joint] Chronic Other connective tissue disease (13 sources) History of total replacement of right hip joint; Translations: [Presence of right artificial hip joint] Chronic Other connective tissue disease (1 source) Presence of right artificial hip joint Onset: 2 Resolved: 2 Chronic Other connective tissue disease (8 sources) History of right total knee replacement; Translations: [Presence of right artificial knee joint] Chronic Other connective tissue disease (2 sources) Presence of right artificial knee joint Onset: 2 Resolved: 2 Chronic Other connective tissue disease (6 sources) Artificial knee joint present; Translations: [Presence of right artificial knee joint] Chronic Other connective tissue disease (2 sources) Trigger finger, left ring finger Episodic Other connective tissue disease (2 sources) Pain in left hand Episodic Other connective tissue disease (1 source) Pelvic floor dysfunction; Translations: [Other specified disorders of muscle] 11-03-2023 Episodic Other gastrointestinal disorders (14 sources) Irritable bowel syndrome; Translations: [Irritable bowel syndrome without diarrhea] Chronic Other gastrointestinal disorders (5 sources) Irritable bowel syndrome without diarrhea; Translations: [IBS (irritable bowel syndrome) K58.9] Onset: 1 Resolved: 1 Chronic Other gastrointestinal disorders (2 sources) Irritable bowel syndrome with diarrhea; Translations: [Irritable bowel syndrome with diarrhea] Onset: 4 02-28-2024 Chronic Other gastrointestinal disorders (1 source) Irritable bowel syndrome with diarrhea; Translations: [Irritable bowel syndrome with diarrhea] Onset: 4 Chronic Other nervous system disorders (2 sources) Bilateral peripheral neuropathy of lower limbs; Translations: [Unspecified mononeuropathy of bilateral lower limbs] Onset: 4 02-28-2024 Chronic Other nervous system disorders (1 source) Unspecified mononeuropathy of bilateral lower limbs; Translations: [Neuropathy of both feet] Onset: 4 Chronic Other screening for suspected conditions (not mental disorders or infectious disease) (19 sources) Patient encounter status; Translations: [Encounter for screening for malignant neoplasm of colon] Onset: 1 Resolved: 1 Episodic Other skin disorders (4 sources) Localized swelling, mass and lump, right upper limb; Translations: [LOC SWELL MASS LUMP RT UPPER LIMB] Onset: 3 Episodic Thyroid disorders (4 sources) Hypothyroidism, unspecified; Translations: [Hypothyroidism] Onset: 2 02-28-2024 Chronic Unclassified (1 source) Pain in left hand; Translations: [Pain in left hand] Onset: 3 Unclassified (1 source) Hemorrhage of anus and rectum; Translations: [Hemorrhage of anus and rectum] Onset: 3 Unclassified (1 source) Presence of right artificial knee joint; Translations: [Presence of right artificial knee joint] Onset: 2 Unclassified (1 source) Aftercare following joint replacement surgery; Translations: [Aftercare following joint replacement surgery] Onset: 2 Urinary tract infections (2 sources) Urinary tract infectious disease; Translations: [Urinary tract infection, site not specified] Onset: 4 02-29-2024 Episodic Past or Other Problems Problem Classification Problem Date Documented Da te Episodic/Chronic Other connective tissue disease (1 source) Trochanteric bursitis, right hip Onset: 02-02-2022 Resolved: 02-02-2022 Episodic Residual codes; unclassified (1 source) Family history of malignant neoplasm of breast; Translations: [FAMILY HX MALIG NEOPLASM OF BREAST] Onset: 05-14-2022 Episodic Results Test Name Value Interpretation Reference Range Facility CBC panel Auto (Bld)on 02-27 Erythrocyte distribution width (RBC) [Ratio] 12.3 % 11.5 - 15.0 % [facility] Hematocrit (Bld) [Volume fraction] 42.4 % 36.0 - 46.0 % [facility] Hemoglobin (Bld) [Mass/Vol] 13.6 g/dL 11.5 - 15.5 g/dL [facility] Interpretation and review of laboratory results Normal [facility] MCH (RBC) [Entitic mass] 29.6 pg 26.0 - 34.0 pg [facility] MCHC (RBC) [Mass/Vol] 32.1 g/dL 30.5 - 36.0 g/dL [facility] MCV (RBC) [Entitic vol] 92.4 fL 80.0 - 100.0 fL [facility] Nucleated RBC (Bld) [#/Vol] NINF [facility] Platelet mean volume (Bld) [Entitic vol] 9.6 fL 9.0 - 12.7 fL [facility] Platelets (Bld) [#/Vol] 352 10*3/uL [facility] RBC (Bld) [#/Vol] 4.59 10*6/uL 3.90 - 5.2 0 m/uL [facility] WBC (Bld) [#/Vol] 6.15 10*3/uL [facility] Erythrocyte distribution width (RBC) [Ratio] 12.3 % Normal 11.5-15.0 [facility] Comment on above: Order Comment: Speci men Type: BLOOD SPECIMEN Ordering Facility: [facility] Address: [address] [place] [address] Performed By: #### 5 8410-2 #### [facility] CLIA [id number] [place] [address] [place] Hematocrit (d) [Volume fraction] 42.4 % Normal 36.0-46.0 [facility] Comment on above: Order Comment: Speci men Type: BLOOD SPECIMEN Ordering Facility: [facility] Address: [address] [place] [address] Performed By: #### 5 8410-2 #### [facility] CLIA [id number] [address] [place] [id number] [place] Hemoglobin (Bld) [Mass/Vol] 13.6 g/dL Normal 11.5-15.5 [facility] Comment on above: Order Comment: Speci men Type: BLOOD SPECIMEN Ordering Facility: [facility] Address: [address] [place] [address] Performed By: #### 5 8410-2 #### [facility] CLIA [id number] [address] [place] [address] [place] MCH (RBC) [Entitic mass] 29.6 pg Normal 26.0-34.0 [facility] Comment on above: Order Comment: Speci men Type: BLOOD SPECIMEN Ordering Facility: [facility] Address: [address] [place] [address] Performed By: #### 5 8410-2 #### [facility] CLIA [id number] [place] [address] [place] MCHC (RBC) [Mass/Vol] 32.1 g/dL Normal 30.5-36.0 [facility] Comment on above: Order Comment: Speci men Type: BLOOD SPECIMEN Ordering Facility: [facility] Address: [address] [place] [address] Performed By: #### 5 8410-2 #### [facility] CLIA [id number] [address] [place] [address] [place] MCV (RBC) [Entitic vol] 92.4 fL Normal 80.0-100.0 [facility] Comment on above: Order Comment: Speci men Type: BLOOD SPECIMEN Ordering Facility: [facility] Address: [address] [place] [address] Performed By: #### 5 8410-2 #### [facility] CLIA [id number] [place], [place] [id number] [place] [address] [place] Nucleated RBC (Bld) [#/Vol] 10*3/uL Normal <0.01 [facility] Comment on above: Order Comment: Speci men Type: BLOOD SPECIMEN Ordering Facility: [facility] Address: [address] [place] [address] Performed By: #### 5 8410-2 #### [facility] CLIA [id number] [address] [place] [address] [place] Platelet mean volume (Bld) [Entitic vol] 9.6 fL Normal 9.0-12.7 [facility] Comment on above: Order Comment: Speci men Type: BLOOD SPECIMEN Ordering Facility: [facility] Address: [address] [place] [address] Performed By: #### 5 8410-2 #### [facility] CLIA [id number] [address] [place] [address] [place] Platelets (Bld) [#/Vol] 352 10*3/uL Normal 150-400 [facility] Comment on above: Order Comment: Speci men Type: BLOOD SPECIMEN Ordering Facility: [facility] Address: [address] [place] [address] Performed By: #### 5 8410-2 #### [facility] CLIA [id number] [address] [place] [address] [facility] RBC (Bld) [#/Vol] 4.59 10*6/uL Normal 3.90-5.20 [facility] Comment on above: Order Comment: Speci men Type: BLOOD SPECIMEN Ordering Facility: [facility] Address: [address] [place] [address] Performed By: #### 5 8410-2 #### [facility] CLIA [id number] [address] [place] [address] [facility] WBC (Bld) [#/Vol] 6.15 10*3/uL Normal 3.70-11.00 [facility] Comment on above: Order Comment: Speci men Type: BLOOD SPECIMEN Ordering Facility: [facility] Address: [address] [place] [address] Performed By: #### 5 8410-2 #### [facility] CLIA [id number] [address] [place] [address] [facility] Comprehensive metabolic 2000 panelon 02-28-2024 Albumin [Mass/Vol] 4.1 g/dL 3.9 - 4.9 g/dL [facility] ALP [Catalytic activity/Vol] 77 U/L 34 - 123 U/L [facility] ALT [Catalytic activity/Vol] 14 U/L 7 - 38 U/L [facility] Anion gap [Moles/Vol] 12 mmol/L 8 - 15 mmol/L [facility] AST [Catalytic activity/Vol] 18 U/L 13 - 35 U/L [facility] Bilirubin [Mass/Vol] 0.5 mg/dL 0.2 - 1 .3 mg/dL [facility] Calcium [Mass/Vol] 9.4 mg/dL 8.5 - 10. 2 mg/dL [facility] Chloride [Moles/Vol] 102 mmol/L 98 - 10 7 mmol/L [facility] CO2 [Moles/Vol] 27 mmol/L 22 - 30 mmol/L [facility] Creatinine [Mass/Vol] 0.81 mg/dL 0.58 - 0.96 mg/dL [facility] GFR/1.73 sq M.predicted among non-blacks MDRD (S/P/Bld) [Vol rate/Area] 74 mL/min/{1.73_m2} - PINF [facility] Comment on above: Estimated Glomerular Filtration Rate (eGFR) is calculated using the 2020 CKD-EPI creatinine equation. This equation utilizes serum creatinine, sex, and age as parameters. The creatinine assay has traceable calibration to isotope dilution-mass spectrometry. Refer to KDIGO guidelines for clinical interpretation. In patients with unstable renal function, e.g. those with acute kidney injury, the eGFR may not accurately reflect actual GFR. Glucose [Mass/Vol] 107 mg/dL High 74 - 99 mg/dL [facility] Comment on above: The [place] Di[employer] Association (ADA) provides guidance for cutoff values for fasting glucose and random glucose. The ADA defines fasting as no caloric intake for at least 8 hours. Fasting plasma glucose results between 100 to 125 mg/dL indicate increased risk for diabetes (prediabetes). Fasting plasma glucose results greater than or equal to 126 mg/dL meet the criteria for diagnosis of diabetes. In the absence of unequivocal hyperglycemia, results should be confirmed by repeat testing. In a patient with classic symptoms of hyperglycemia or hyperglycemic crisis, random plasma glucose results greater than or equal to 200 mg/dL meet the criteria for diagnosis of diabetes. Reference: Standards of Medical Care in Diabetes 2016, [place] [employer]. Diabetes Care. 2016.39(Suppl 1). Interpretation and review of laboratory results Abnormal [facility] Potassium [Moles/Vol] 4.4 mmol/L 3.7 - 5.1 mmol/L [facility] Protein [Mass/Vol] 7.5 g/dL 6.3 - 8.0 g/dL [facility] Sodium [Moles/Vol] 141 mmol/L 136 - 144 mmol/L [facility] Urea nitrogen [Mass/Vol] 11 mg/dL 7 - 21 mg/dL [facility] Albumin [Mass/Vol] 4.1 g/dL Normal 3.9-4.9 [facility] Comment on above: Order Comment: Speci men Type: BLOOD SPECIMEN [facility] [facility] Address: [address] [place] [address] Performed By: #### 3 016-3, 07580-2 #### [facility] CLIA [id number] [address] [place] [address] [place] ALP [Catalytic activity/Vol] 77 U/L Normal 34-123 [facility] Comment on above: Order Comment: Speci men Type: BLOOD SPECIMEN Ordering Facility: [facility] Address: [address] [place] [address] Performed By: #### 3 016-3, 89904-7 #### [facility] CLIA [id number] [address] [place] [address] [place] ALT [Catalytic activity/Vol] 14 U/L Normal 7-38 [facility] Comment on above: Order Comment: Speci men Type: BLOOD SPECIMEN Ordering Facility: [facility] Address: [address] [place] [address] Performed By: #### 3 016-3, 44554-2 #### [facility] CLIA [id number] [address] [place] [address] [place] Anion gap [Moles/Vol] 12 mmol/L Normal 8-15 [facility] Comment on above: Order Comment: Speci men Type: BLOOD SPECIMEN Ordering Facility: [facility] Address: [address] [place] [address] Performed By: #### 3 016-3, 45389-1 #### [facility] CLIA [id number] [address] [place] [address] [place] [facility] AST [Catalytic activity/Vol] 18 U/L Normal 13-35 [facility] Comment on above: Order Comment: Speci men Type: BLOOD SPECIMEN Ordering Facility: [facility] Address: [address] [place] [address] Performed By: #### 3 016-3, 08841-5 #### [facility] CLIA [id number] [address] [place] [address] [place] Bilirubin [Mass/Vol] 0.5 mg/dL Normal 0.2-1.3 [facility] Comment on above: Order Comment: Speci men Type: BLOOD SPECIMEN Ordering Facility: [facility] Address: [address] [place] [address] Performed By: #### 3 016-3, #### [facility] CLIA [id number] [address] [place] [address] [place] Calcium [Mass/Vol] 9.4 mg/dL Normal 8.5-10.2 [facility] Comment on above: Order Comment: Speci men Type: BLOOD SPECIMEN Ordering Facility: [facility] Address: [address] [place] [address] Performed By: #### 3 -3, #### [facility] CLIA [id number] [address] [place] [address] [place] Chloride [Moles/Vol] 102 mmol/L Normal 98-107 [facility] Comment on above: Order Comment: Speci men Type: BLOOD SPECIMEN Ordering Facility: [facility] Address: [address] [place] [address] Performed By: #### 3 016-3, #### [facility] IA [id number] [address] [place] [address] [place] CO2 [Moles/Vol] 27 mmol/L Normal 22-30 [facility] Comment on above: Order Comment: Speci men Type: BLOOD SPECIMEN Ordering Facility: [facility] Address: [address] [place] [address] Performed By: #### 3 016-3, #### [facility] IA [id number] [address] [place] [address] [place] Creatinine [Mass/Vol] 0.81 mg/dL Normal 0.58-0.96 [facility] Comment on above: Order Comment: Speci men Type: BLOOD SPECIMEN Ordering Facility: [facility] Address: [address] [place] [address] Performed By: #### 3 016-3, #### [facility] CLIA [id number] [address] [place] [address] [place] Creatinine and Glomerular filtration rate.predicted panel (S/P/Bld) 74 mL/min/1.73m??? Normal >=60 [facility] Comment on above: Order Comment: Eliu hooker Type: BLOOD SPECIMEN Ordering Facility: [facility] Address: [address] [place] [address] Result Comment: Joycelyn mated Glomerular Filtration Rate (eGFR) is calculated using the 2020 CKD-EPI creatinine equation. This equation utilizes serum creatinine, sex, and age as parameters. The creatinine assay has traceable calibration to isotope dilution-mass spectrometry. Refer to KDIGO guidelines for clinical interpretation. In patients with unstable renal function, e.g. those with acute kidney injury, the eGFR may not accurately reflect actual GFR. Performed By: #### 3 016-3, 63665-1 #### [facility] CLIA [id number] [address] [place] [address] [place] Glucose [Mass/Vol] 107 mg/dL High 74-99 [facility] Comment on above: Order Comment: Eliu hooker Type: BLOOD SPECIMEN Ordering Facility: [facility] Address: [address] [place] [address] Result Comment: The [place] Diabetes Association (ADA) provides guidance for cutoff values for fasting glucose and random glucose. The ADA defines fasting as no caloric intake for at least 8 hours. Fasting plasma glucose results between 100 to 125 mg/dL indicate increased risk for diabetes (prediabetes). Fasting plasma glucose results greater than or equal to 126 mg/dL meet the criteria for diagnosis of diabetes. In the absence of unequivocal hyperglycemia, results should be confirmed by repeat testing. In a patient with classic symptoms of hyperglycemia or hyperglycemic crisis, random plasma glucose results greater than or equal to 200 mg/dL meet the criteria for diagnosis of diabetes. Reference: Standards of Medical Care in Diabetes 2016, [place] [employer] Association. Diabetes Care. 2016.39(Suppl 1). Performed By: #### 3 016-3, 12663-6 #### [facility] CLIA [id number] [address] [facility] [place] [address] [place] Potassium [Moles/Vol] 4.4 mmol/L Normal 3.7-5.1 [facility] Comment on above: Order Comment: Eliu [facility] Type: BLOOD SPECIMEN Ordering Facility: [facility] Address: [address] [place] [address] Performed By: #### 3 016-3, 53515-8 #### [facility] CLIA [id number] [address] [place] [address] [place] Protein [Mass/Vol] 7.5 g/dL Normal 6.3-8.0 [facility] Comment on above: Order Comment: Speci men Type: BLOOD SPECIMEN Ordering Facility: [facility] Address: [address] [place] [address] Performed By: #### 3 016-3, 74459-2 #### [facility] CLIA [id number] [address] [place] [address] [place] Sodium [Moles/Vol] 141 mmol/L Normal 136-144 [facility] Comment on above: Order Comment: Speci men Type: BLOOD SPECIMEN Ordering Facility: [facility] Address: [address] [place] [address] Performed By: #### 3 016-3, 03875-8 #### [facility] CLIA [id number] [address] [place] [address] [place] Urea nitrogen [Mass/Vol] 11 mg/dL Normal 7-21 [facility] Comment on above: Order Comment: Speci men Type: BLOOD SPECIMEN Ordering Facility: [facility] Address: [address] [place] [address] Performed By: #### 3 016-3, 24080-7 #### [facility] CLIA [id number] [address] [place] [address] [place] Free T4 [Mass/Vol]on 024 Interpretation and review of laboratory results Abnormal [facility] HISTORY PHYSICALon HISTORY PHYSICAL HNO ID: [id number] Author: ZAIDA SORIANO PA-C Service: ? Author Type: Physician Registered Public Surveyor Type: H&P Filed: 03/04/2024 11:23 Note Text: [facility] HISTORY AND PHYSICAL EXAMINATION SERVICE DATE: 02/28/2024 SERVICE TIME: 2:26 PM PRIMARY CARE PHYSICIAN: Gisella Porter MD Assessment 1. Preoperative examination Scheduled for surgery 03/19/2024 2. BRBPR (bright red blood per rectum) 3. Rectal prolapse See HPI, having surgery 4. Tachycardia HR averaging around 118-120 during our visit. Patient denies any cardiac symptoms. No palpitations or CP. EKG today shows sinus tachycardia with HR 113 bpm, also shows possible anterolateral infarct. Patient has never had a prior EKG at [facility] before, but has at either [facility] or [facility]. Faxing for records for comparison. Checking CBC, CMP, TSH, T4 labs. - Electrolytes and CBC are WNL. - TSH is low and T4 elevated, showing that her Levothyroxine dose of 112 mcg needs to be adjusted. Called and spoke with patient on phone 02/29/2024, reviewed her labs and that her levothyroxine dose is too high. Confirmed that her PCP, Dr. Gisella Porter is managing this. Will fax letter to Dr. Porter with results. Received old EKG done 2013 which showed poor wave progression and low QRS voltages in precordial leads, appears similar to EKG done today. Will review with anesthesia. 5. Hypothyroidism, unspecified type Compliant on daily levothyroxine. Updating thyroid labs today due to tachycardia - see above. 6. 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 On daily Etodolac and has Tramadol for use PRN 7. Hyperlipidemia, unspecified hyperlipidemia type Compliant on daily Crestor at bedtime. 8. Neuropathy of both feet Stable on amitriptyline at bedtime. 9. Irritable bowel syndrome with diarrhea See HPI, having colonoscopy 10. Urinary tract infection without hematuria, site unspecified Diagnosed 02/20/24 and started 10 day course of Cefdinir, has 2 days left of treatment. Symptoms have resolved. [place] Activity Status Index: METS: Walk indoors, such as around the house (1.75 METs) Do light work around the house, such as dusting or washing dishes (2.70 METs) Take care of self; that is eating, dressing, bathing, using the toilet (2.75 METs) Walk a block or two on level ground (2.75 METs) Do moderate work around the house, such as vacuuming, sweeping floors, or carrying in groceries (3.50 METs) Climb a flight of stairs or walk up a hill (5.50 METs) DASI Score: 18.95 (House work, stairs ) Patient denies any chest pain or undue shortness of breath with the above physical activity. Clinical Frailty Scale: 4. Apparently vulnerable STOP-Bang Score: Patient over 50 years old BMI less than or equal to 35 kg/m2 Non-male patient STOP-Bang Score: 1 [id number] Score: ESW1AT0-QPUg Score: 0 ANESTHESIA FINDINGS: Intubation History: No history of difficult intubation Significant Anesthesia Considerations: none Airway History: No history of difficult airway I - PHYSICAL EVALUATION AIRWAY Patient intubated: No. Tracheostomy tube not present Mallampati: II. TM distance: >3 FB. Neck ROM: limited extension. Mouth opening: adequate. Short neck: no. Thick neck: no Lip Bite Test: II DENTAL Dental findings: teeth intact. Additional comments: +Caps/Crowns . II - ANESTHESIA PLAN Beta Abimbola Monitoring Plan Post Procedure Analgesic Plan Prepared for Surgery: optimally prepared for surgery. CONSULTS: PCP/Internal Medicine consult for medical optimization regarding abnormal thyroid labs. Letter faxed to Dr. Gisella Porter 02/29/2024 03/04/2024 - received signed letter from Dr. Porter, patient is ok to proceed with surgery. Anesthesia Consult for chart review and review of EKG done at [facility] Visit 02/28/24 and old EKG from 2013- Email sent to Dr. Moise 02/29/2024. Reviewed history and EKG's, appear similar with no acute ischemic changes. Nothing further required from cardiac standpoint for this surgery. Recommends that patient follow up with PCP after surgery to monitor this. Patient notified of this on the phone. Planned Anesthetic: other anesthesia choice The Following Tests/Procedures Have Been Initiated: PAT on 02/28/24 COMPLETE BLOOD COUNT COMPREHENSIVE METABOLIC PANEL THYROID STIMULATING HORMONE T4 FREE/FREE THYROXINE Etodolac 500 mg tablet traMADol (ULTRAM) 50 mg tablet ECG COMPLETE Faxed release to [facility] 02/28/2024 for Last EKG, need for comparison. - Received EKG's done : 11/12/21 - Sinus tachycardia 100 bpm, low QRS voltage 10/22/13 - SR with poor wave progression and low QRS voltages in precordial leads. REASON FOR VISIT: Billie Yeboah is a 78 year old female who is scheduled for EXCISION RECTAL PROCIDENTIA W/ ANASTOMOSIS COLONOSCOPY at the request of (more content not included)... Normal [facility] T4 FREE/FREE THYROXINEon Free T4 [Mass/Vol] 1.9 ng/dL High 0.9 - 1.7 ng/dL [facility] T4 Free SerPl-mCncon 024 Free T4 [Mass/Vol] 1.9 ng/dL High 0.9-1.7 De[facility] covarrubias Comment on above: Order Comment: Eliu hooker Type: BLOOD SPECIMEN Ordering Facility: [facility] Address: [address] [place] [address] Performed By: #### 3 024-7 #### [facility] CLIA [id number] [address] [place] [address] [place] THYROID STIMULATING HORMONEo n 02-28-2024 TSH Qn 0.120 m[IU]/L Low [facility] TSH Qnon 02-28-2024 Interpretation and review of laboratory results Abnormal [facility] TSH SerPl-aCncon 02-28-2024 TSH Qn 0.120 m[IU]/L Low 0.270-4.200 Deisy Fahad siddiqui Comment on above: Order Comment: Eliu hooker Type: BLOOD SPECIMEN Ordering Facility: [facility] Address: [address] [place] [address] Performed By: #### 3 016-3, 38921-4 #### [facility] CLIA [id number] [place] [address] [place] CNOVon 02-23-2024 CNOV Office Visit ([facility]) ---- BILLIE YEBOAH ([id number]) 1945 F Date Time Provider Department 02/23/24 2:40 PM FUNMILAYO ODELL [facility] During your visit today, we recorded the following information about you: Temperature Pulse Blood pressure Weight 97.5 degrees 103/minute 134/83 64.9 kg Height 1.676 m Funmilayo Odell MD 02/25/2024 9:51 PM Signed COLORECTAL SURGERY February 23, 2024 Billie Goodther 78 year old Chief Complaint: hemorrhoids History of Present Illness: Billie Yeboah is a 78 year old female presents today for follow up evaluation of hemorrhoids. She was last seen 11/03/23 for rectal bleeding and hemorrhoids. Rubber band ligation of large anterior internal hemorrhoid/mucosal prolapse x2 performed. Sigmoidoscopy 09/21/22 - Dr. Forbes Retroflexed views: There is small hypervascular appearing internal hemorrhoids extending down below the dentate line, comprising an external component as well. 78-year-old female with the above-stated history. She has had rubber band ligation twice and has not helped very much at all with her symptoms. She continues to have daily bleeding and discomfort. She is interested in further surgical intervention No past medical history on file. No past surgical history on file. Current Outpatient Medications Medication Sig Dispense Refill amitriptyline (ELAVIL) 50 mg tablet Take 50 mg by mouth once daily. levothyroxine (SYNTHROID) 112 mcg tablet Take 112 mcg by mouth once daily. dicyclomine (BENTYL) 20 mg tablet Take 20 mg by mouth twice daily. rosuvastatin (CRESTOR) 5 mg tablet Take 5 mg by mouth once daily. cholecalciferol (VITAMIN D3) 5,000 unit tab Take 5,000 Units by mouth once daily. No current facility-administer ed medications for this visit. ALLERGIES Allergen Reactions Ciprofloxacin Rash, Unknown Nitrofurantoin [place]* Other: See Comments, GI Upset Sulfamethoxazole-Tr * Other: See Comments, Rash No family history on file. Social History Tobacco Use Smoking status: Never Smokeless tobacco: Never Substance Use Topics Alcohol use: Never Drug use: Never Physical Exam: BP 134/83 (BP Site: Right Arm, BP Position: Sitting) Pulse 103 Temp 36.4 ?C (97.5 ?F) Ht 167.6 cm (5' 6 ) Wt 64.9 kg (143 lb) SpO2 94% BMI 23.08 kg/m? General Appearance: Well appearing, alert, in no acute distress, well-hydrated, well nourished. Anorectal: External exam reveals no lesions. Digital rectal exam reveals no gross blood or masses Certified Nurse Midwife present: Yes, Sarah Hess Anoscopy: The patient was placed in chest-knee position. After digital exam with a lubricated finger, the scope was easily inserted. Enlarged anterior prolapsing mucosa noted. Otherwise normal mucosa was noted. Anoscopy completed. Assessment Assessment and Plan: Billie Yeboah is a 78 year old female with persistent prolapsing anterior mucosa. Rubber band ligation has not solved this and she is interested in further surgical intervention. We will plan for concurrent colonoscopy and Delorme type procedure with excision of excess anterior rectal mucosal prolapse. Consent obtained Medical Decision Making: Data Reviewed: Tests AND Documents Reviewed/ordered: Review of prior notes from ,yself Review of Labs: CBC, BMP Review of Procedures / Tests: Colonoscopy Risk of morbidity, mortality and/or complications of treatment plan: nyla Odell MD Colorectal Surgery Referring Provider: MANOJ FORBES [[id number]] Allergies As of Date: 02/23/2024 Noted Allergy Reaction CIPROFLOXACIN 05/31/2013 2 - Rash 16 - Unknown NITROFURANTOIN MONOHYD/M-CRYST 10/27/2022 14 - Other: See Comments 8 - GI Upset SULFAMETHOXAZOLE-TR IMETHOPRIM 05/31/2013 14 - Other: See Comments 2 - Rash Date Reviewed: 02/23/2024 Reviewed by: Sarah Marroquin OCCA - Fully Assessed Reason for Visit: New Patient [172] Hemorrhoids [94029] Rectal Bleeding [202] Primary Visit Diagnosis:Hemorrhoi ds, unspecified hemorrhoid type [K64.9] Prescriptions as of 02/25/2024 - amitriptyline (ELAVIL) 50 mg tablet Take [...] once daily. Problem List As Of Date: 02/23/2024 (None) Encounter Status:Closed by FUNMILAYO ODELL on 02/25/24 [facility] CNOVon 11-03-2023 CNOV Office Visit ([facility]) ---- BILLIE YEBOAH ([id number]) 1945 F Date Time Provider Department 11/03/23 2:40 PM FUNMILAYO ODELL [facility] During your visit today, we recorded the following information about you: Temperature Pulse Blood pressure 97.1 degrees 85/minute 179/87 Shelly Bingham, OCCA 11/03/2023 2:19 PM Signed What is the reason for your visit today? BRBPR, hemorrhoids Who is your referring physician? Dr. Forbes Are you having poor oral intake? NO Have you had unintentional weight loss of 15 lbs/7 Kg in the last 3-6 months? NO Bowels: regular, bleeding with and without BMs, discharge, brown/green in color Wound: Temperature: No Drains: No Funmilayo Odell MD 11/03/2023 2:59 PM Signed COLORECTAL SURGERY November 03, 2023 Billie Yeboah 78 year old This consult was requested by Dr. Forbes and my final recommendations will be communicated to the requesting health care provider by way of the shared medical record for internal providers or letter via the [employer] for external providers. Chief Complaint: BRBPR, hemorrhoids History of Present Illness: Billie Yeboah is a 78 year old female presents today for evaluation of BRBPR and hemorrhoids. Sigmoidoscopy 09/21/22 - Dr. Forbes Retroflexed views: There is small hypervascular appearing internal hemorrhoids extending down below the dentate line, comprising an external component as well. She reports she has had recurrence of rectal bleeding and it can be significant. She also reports that she has some thin brown/green fluid that is leaking out of her rectum without her knowledge. She is unsure if it is stool No past medical history on file. No past surgical history on file. Current Outpatient Medications Medication Sig Dispense Refill amitriptyline (ELAVIL) 50 mg tablet Take 50 mg by mouth once daily. levothyroxine (SYNTHROID) 112 mcg tablet Take 112 mcg by mouth once daily. dicyclomine (BENTYL) 20 mg tablet Take 20 mg by mouth twice daily. rosuvastatin (CRESTOR) 5 mg tablet Take 5 mg by mouth once daily. cholecalciferol (VITAMIN D3) 5,000 unit tab Take 5,000 Units by mouth once daily. No current facility-administer ed medications for this visit. ALLERGIES Allergen Reactions Ciprofloxacin Rash, Unknown Nitrofurantoin [place]* Other: See Comments, GI Upset Sulfamethoxazole-Tr * Other: See Comments, Rash No family history on file. Social History Tobacco Use Smoking status: Never Smokeless tobacco: Never Substance Use Topics Alcohol use: Never Drug use: Never Physical Exam: BP 179/87 (BP Site: Left Arm, BP Position: Sitting, BP Cuff Size: Regular Adult) Pulse 85 Temp 36.2 ?C (97.1 ?F) SpO2 98% General Appearance: Well appearing, alert, in no acute distress, well-hydrated, well nourished. Anorectal: External exam reveals soft external hemorrhoids. Digital rectal exam reveals no gross blood or masses. She has a weak squeeze and discoordinated push Certified Nurse Midwife present: Yes, Sarah Z Anoscopy: The patient was placed in chest-knee position. After digital exam with a lubricated finger, the scope was easily inserted. Anterior/left lateral redundant prolapsing mucosa/internal hemorrhoids noted. Otherwise normal mucosa was noted. Anoscopy completed. Preoperative diagnosis: First to second degree hemorrhoids. Procedure: Anoscopy, rubber band ligation of hemorrhoids. Postoperative diagnosis: Same Indications: This 78 year old was found to have internal hemorrhoids that were not suitable for conservative management. Description of procedure: The patient was placed in the chest-knee position. A time out was completed. A digital rectal exam was performed. A lubricated anoscope was inserted into the anal canal. The three hemorrhoidal pedicles were identified and the redundant rectal mucosa just above the largest internal hemorrhoids (anterior/left lateral) suctioned. Using the applicator, 2 rubber bands were placed around the tissue and were noted to be in good position. The mucosa was inspected for bleeding prior to withdrawal of the anoscope. The patient tolerated the procedure well with no excessive pain. Assessment Assessment and Plan: Billie Yeboah is a 78 year old female with large anterior internal hemorrhoid/mucosal prolapse status post rubber band ligation x 2 of this area. This gave her some good relief a year ago and I am hopeful that will do so again. If things are not getting better then she may require a Delorme type mucosal resection of this anterior redundant mucosa. I also think that some of the leakage she is having is from her use of stool softeners and I asked her to stop this to see if this improves her symptoms. In addition I also referred her to pelvic floor physical therapy as she seems to have weak sphincter muscles on exam. Her last colonoscopy she reports was (more content not included)... Normal [facility] CNPNon 10-11-2023 CNPN Telephone ([facility]) ---- BILLIE YEBOAH ([id number]) 1945 F Date Time Provider Department 10/11/23 FUNMILAYO ODELL [facility] During your visit today, we recorded the following information about you: Jean Carlos Gunn 10/11/2023 10:06 AM Signed Referral Scanned in for Dr. Odell, called pt and LVM, awaiting call back to schedule. Jean Carlos Gunn 10/11/2023 2:15 PM Signed Appointment with Dr. Odell is scheduled. Allergies As of Date: 10/11/2023 Noted Allergy Reaction CIPROFLOXACIN 05/31/2013 2 - Rash 16 - Unknown NITROFURANTOIN MONOHYD/M-CRYST 10/27/2022 14 - Other: See Comments 8 - GI Upset SULFAMETHOXAZOLE-TR IMETHOPRIM 05/31/2013 14 - Other: See Comments 2 - Rash Date Reviewed: 10/27/2022 Reviewed by: Funmilayo Odell MD - Fully Assessed Reason for Visit: Received Outside Medical Records [[id number]] Appointment [186] Prescriptions as of 10/11/2023 - amitriptyline (ELAVIL) 50 mg tablet Take [...] once daily. Problem List As Of Date: 10/11/2023 (None) Encounter Status:Closed by JEAN CARLOS GUNN on 10/11/23 Normal [facility] XR knee RT 2Von 12-23-2022 XR knee RT 2V [facility] [address] [address] XRay Report Signed Patient: Billie Yeboah MR#: [id number] : 1945 Acct:[id number] Age/Sex: 77 / F ADM Date: 12/23/22 Loc: [facility] Room: Type: [facility] Attending Dr: Sydney Erickson II, MD Copies [...] COMPLICATION. Impression dictated by: Migue Groves Jr., Bear12/23/2022 2:03 PM Dictation Location: [place] [address] Transcribed By: [facility] 12/23/22 1403 Dictated By: Migue Groves Jr, DO 12/23/22 1400 Signed By: 12/23/22 1403 Normal [facility] XR hand LT min 3V*on 023 XR hand LT min 3V* [facility] Main [address] [address] XRay Report Signed Patient: Billie Yeboah MR#: [id number] : 1945 Acct:[id number] Age/Sex: 77 / F ADM Date: 12/07/22 Loc: [facility] Room: Type: [facility] Attending Dr: Ivette Taylor MD Copies to: [...] Lg Lua M.D.12/07/2022 1:35 PM Dictation Location: [place] [address] Transcribed By: [facility] 12/07/22 1335 Dictated By: Lg Lua DO 12/07/22 1331 Signed By: 12/07/22 1335 [facility] CBC AUTO DIFFon 08-23-2022 BASO # 0.0 103/ul Normal 0.0-0.1 [facility] Comment on above: Performed By: #### I NIKI DE LA TORRE #### [facility] [address] [place] [address] [address] Ryann Pearce Basophils/100 WBC (Bld) 1.0 % Normal 0.2-2.0 [facility] Comment on above: Performed By: #### I NIKI DE LA TORRE #### [facility] [address] [place], [place] [address] Dr. Ryann Pearce EO # 0.2 103/ul Normal 0.0-0.7 [facility] Comment on above: Performed By: #### I WIL VITAD #### [facility] [address] [place] [address] Dr. Ryann Pearce Eosinophils/100 WBC (Bld) 3.8 % Normal 0.9-7.0 [facility] Comment on above: Performed By: #### Mike DE LA TORRE VITAD #### [facility] [address] [place] [address] Dr. Ryann Pearce Erythrocyte distribution width (RBC) [Ratio] 12.1 % Normal 11.0-15.0 [facility] Comment on above: Performed By: #### Mike DE LA TORRE VITAD #### [facility] [address] [place] [address] Dr. Ryann Pearce Hematocrit (Bld) [Volume fraction] 35.5 % Critically low 36.0-48.0 [facility] Comment on above: Performed By: #### Mike DE LA TORRE VITAD #### [facility] [address] [place] [address] Dr. Ryann Pearce Hemoglobin (Bld) [Mass/Vol] 11.7 g/dL Critically low 12.0-16.0 [facility] Comment on above: Performed By: #### Mike DE LA TORRE VITAD #### [facility] [address] [place] [address] Dr. Ryann Pearce IG # 0.01 10e3/ul Normal 0.00-0.03 [facility] Comment on above: Performed By: #### Mike DE LA TORRE VITAD #### [facility] [address] [place] [address] Dr. Ryann Pearce IG % 0.3 % Normal 0.0-0.5 [facility] Comment on above: Performed By: #### Mike DE LA TORRE VITAD #### [facility] [address] [place] [address] Dr. Ryann Pearce LYMPH # 1.2 103/ul Normal 1.2-3.8 [facility] Comment on above: Performed By: #### Mike DE LA TORRE VITAD #### [facility] [address] [place] [address] Dr. Ryann Perace Lymphocytes/100 WBC (Bld) 31.5 % Normal 20.5-60.0 [facility] Comment on above: Performed By: #### I WIL, VITAD #### [facility] [address] [place] [address] Dr. Ryann Pearce MANUAL DIFF REQ NO Normal [facility] Comment on above: Performed By: #### I WIL, VITAD #### [facility] [address] [place] [address] Dr. Ryann Pearce MCH (RBC) [Entitic mass] 29.5 pg Normal 26.7-34.0 [facility] Comment on above: Performed By: #### I WIL, VITAD #### [facility] [address] [place] [address] Dr. Ryann Pearce MCHC (RBC) [Mass/Vol] 33.0 g/dL Normal 29.9-35.2 [facility] Comment on above: Performed By: #### Mike DE LA TORRE VITAD #### [facility] [address] [place] [address] Dr. Ryann Pearce MCV (RBC) [Entitic vol] 89.6 fL Normal 81.0-99.0 [facility] Comment on above: Performed By: #### Mike DE LA TORRE VITAD #### [facility] [address] [place] [address] Dr. Ryann Pearce MONO # 0.5 103/ul Normal 0.3-0.8 [facility] Comment on above: Performed By: #### Mike DE LA TORRE VITAD #### [facility] [address] [place] [address] Dr. Ryann Pearce Monocytes/100 WBC (Bld) 13.2 % Critically high 1.7-12.0 [facility] Comment on above: Performed By: #### Mike DE LA TORRE, VITAD #### [facility] [address] [place] [address] Dr. Ryann Pearce NEUT # 2.0 103/ul Normal 1.4-6.5 [facility] Comment on above: Performed By: #### Mike DE LA TORRE, VITAD #### [facility] [address] [place] [address] [address] Ryann Pearce Neutrophils/100 WBC (Bld) 50.2 % Normal 43.0-75.0 [facility] Comment on above: Performed By: #### I WIL, VITAD #### [facility] [address] [place] [address] Dr. Ryann Pearce Platelet mean volume (Bld) [Entitic vol] 8.9 fL Critically low 9.5-13.5 [facility] Comment on above: Performed By: #### I WIL, VITAD #### [facility] [address] [place] [address] Dr. Ryann Pearce PLT 253 103/ul Normal 150-450 [facility] Comment on above: Performed By: #### I WIL, VITAD #### [facility] [address] [place] [address] Dr. Ryann Pearce RBC 3.96 106/ul Critically low 4.20-5.40 [facility] Comment on above: Performed By: #### I WIL, VITAD #### [facility] [address] [place] [address] Dr. Ryann Pearce WBC 3.9 103/ul Critically low 4.0-11.[address] [facility] Comment on above: Performed By: #### I WIL, VITAD #### [facility] [address] [place] [address] Dr. Ryann Pearce PROF 14(COMP METB)on 023 Albumin [Mass/Vol] 3.3 g/dL Critically low 3.4-5.0 [facility] Comment on above: Performed By: #### I WIL VITAD #### [facility] [address] [place] [address] Dr. Ryann Pearce Albumin/Globulin [Mass ratio] 1.0 {ratio} Normal [facility] Comment on above: Performed By: #### I WIL, VITAD #### [facility] [address] [place] [address] Dr. Ryann Pearce ALP [Catalytic activity/Vol] 65 U/L Normal 46-116 [facility] Comment on above: Performed By: #### I WIL, VITAD #### [facility] [address] [place] [address] [address] Ryann Pearce ALT [Catalytic activity/Vol] 30 U/L Normal 14-59 [facility] Comment on above: Performed By: #### I WIL, VITAD #### [facility] [address] [place] [address] [address] Ryann Pearce Anion gap [Moles/Vol] 10.0 mmol/L Normal [facility] Comment on above: Performed By: #### I WIL, VITAD #### [facility] [address] [place] [address] [address] Ryann Pearce AST [Catalytic activity/Vol] 26 U/L Normal 15-37 [facility] Comment on above: Performed By: #### I WIL, VITAD #### [facility] [address] [place] [address] [address] Ryann Pearce Bilirubin [Mass/Vol] 0.4 mg/dL Normal 0.2-1.0 [facility] Comment on above: Performed By: #### I WIL, VITAD #### [facility] [address] [place] [address] [address] Ryann Pearce Calcium [Mass/Vol] 8.8 mg/dL Normal 8.5-10.1 [facility] Comment on above: Performed By: #### I WIL, VITAD #### [facility] [address] [place] [address] [address] Ryann Pearce Chloride [Moles/Vol] 105 mmol/L Normal 98-107 [facility] Comment on above: Performed By: #### I WIL, VITAD #### [facility] [address] [place] [address] [address] Ryann Pearce CO2 [Moles/Vol] 30.1 mmol/L Normal 21.0-32.0 [facility] Comment on above: Performed By: #### I WIL, VITAD #### [facility] [address] [place] [address] [address] Ryann Pearce Creatinine [Mass/Vol] 0.90 mg/dL Normal 0.55-1.02 [facility] Comment on above: Performed By: #### I WIL, VITAD #### [facility] [address] [place] [address] [address] Ryann Pearce EGFR-AF MALAYSIAN >60 Normal >=60 [facility] Comment on above: Performed By: #### I WIL, VITAD #### [facility] [address] [place] [address] [address] Ryann Pearce EGFR-NON AF MALAYSIAN >60 Normal >=60 [facility] Comment on above: Performed By: #### I WIL, VITAD #### [facility] [address] [place] [address] [address] Ryann Pearce Globulin (S) [Mass/Vol] 3.3 g/dL Normal [facility] Comment on above: Performed By: #### I WIL, VITAD #### [facility] [address] [place] [address] [address] Ryann Pearce Glucose [Mass/Vol] 100 mg/dL Normal 74-106 [facility] Comment on above: Performed By: #### I WIL, VITAD #### [facility] [address] [place] [address] [address] Ryann Pearce Potassium [Moles/Vol] 4.1 mmol/L Normal 3.5-5.1 [facility] Comment on above: Performed By: #### Mike DE LA TORRE, VITAD #### [facility] [address] [place] [address] [address] Ryann Pearce Protein [Mass/Vol] 6.6 g/dL Normal 6.4-8.2 [facility] Comment on above: Performed By: #### I WIL, VITAD #### [facility] [address] [place] [address] [address] Ryann Pearce Sodium [Moles/Vol] 141 mmol/L Normal 136-145 [facility] Comment on above: Performed By: #### I WIL, VITAD #### [facility] [address] [place] [address] [address] Ryann Pearce Urea nitrogen [Mass/Vol] 13.0 mg/dL Normal 7.0-18.0 [facility] Comment on above: Performed By: #### Mike DE LA TORRE VITAD #### [facility] [address] [place] [address] Dr. Ryann Pearce Urea nitrogen/Creatinine [Mass ratio] 14.4 mg/mg Normal [facility] Comment on above: Performed By: #### Mike DE LA TORRE VITAD #### [facility] [address] [place] [address] Dr. Ryann Pearce CBC AUTO DIFFon 06-06-2022 BASO # 0.0 103/ul Normal 0.0-0.1 [facility] Comment on above: Performed By: #### Mike DE LA TORRE VITAD #### [facility] [address] [place] [address] Dr. Ryann Pearce Basophils/100 WBC (Bld) 1.2 % Normal 0.2-2.0 [facility] Comment on above: Performed By: #### Mike DE LA TORRE VITAD #### [facility] [address] [place] [address] Dr. Ryann Pearce EO # 0.1 103/ul Normal 0.0-0.7 [facility] Comment on above: Performed By: #### Mike DE LA TORRE VITAD #### [facility] [address] [place] [address] Dr. Ryann Pearce Eosinophils/100 WBC (Bld) 3.3 % Normal 0.9-7.0 [facility] Comment on above: Performed By: #### Mike DE LA TORRE VITAD #### [facility] [address] [place] [address] Dr. Ryann Pearce Erythrocyte distribution width (RBC) [Ratio] 12.5 % Normal 11.0-15.0 [facility] Comment on above: Performed By: #### Mike DE LA TORRE VITAD #### [facility] [address] [place] [address] Dr. Ryann Pearce Hematocrit (Bld) [Volume fraction] 38.7 % Normal 36.0-48.0 [facility] Comment on above: Performed By: #### Mike DE LA TORRE VITAD #### [facility] [address] [place], [place] [id number] Dr. Ryann Pearce Hemoglobin (Bld) [Mass/Vol] 12.8 g/dL Normal 12.0-16.0 [facility] Comment on above: Performed By: #### I WIL, VITAD #### [facility] [address] [place] [address] Dr. Ryann Pearce IG # 0.01 10e3/ul Normal 0.00-0.03 [facility] Comment on above: Performed By: #### I WIL, VITAD #### [facility] [address] [place] [address] Dr. Ryann Pearce IG % 0.3 % Normal 0.0-0.5 [facility] Comment on above: Performed By: #### I WIL VITAD #### [facility] [address] [place] [address] Dr. Ryann Pearce LYMPH # 1.1 103/ul Critically low 1.2-3.8 [facility] Comment on above: Performed By: #### I WIL, VITAD #### [facility] [address] [place] [address] Dr. Ryann Pearce Lymphocytes/100 WBC (Bld) 32.0 % Normal 20.5-60.0 [facility] Comment on above: Performed By: #### Mike DE LA TORRE, VITAD #### [facility] [address] [place] [address] Dr. Ryann Pearce MANUAL DIFF REQ NO Normal [facility] Comment on above: Performed By: #### I WIL VITAD #### [facility] [address] [place] [address] Dr. Ryann Pearce MCH (RBC) [Entitic mass] 29.6 pg Normal 26.7-34.0 [facility] Comment on above: Performed By: #### I WIL, VITAD #### [facility] [address] [place] [address] Dr. Ryann Pearce MCHC (RBC) [Mass/Vol] 33.1 g/dL Normal 29.9-35.2 [facility] Comment on above: Performed By: #### I WIL, VITAD #### [facility] [address] [place] [address] Dr. Ryann Pearce MCV (RBC) [Entitic vol] 89.4 fL Normal 81.0-99.0 [facility] Comment on above: Performed By: #### I WIL, VITAD #### [facility] [address] [place] [address] Dr. Ryann Pearce MONO # 0.4 103/ul Normal 0.3-0.8 [facility] Comment on above: Performed By: #### I WIL, VITAD #### [facility] [address] [place] [address] Dr. Ryann Pearce Monocytes/100 WBC (Bld) 11.1 % Normal 1.7-12.0 [facility] Comment on above: Performed By: #### I WIL, VITAD #### [facility] [address] [place] [address] Dr. Ryann Pearce NEUT # 1.7 103/ul Normal 1.4-6.5 [facility] Comment on above: Performed By: #### I WIL VITAD #### [facility] [address] [place] [address] Dr. Ryann Pearce Neutrophils/100 WBC (Bld) 52.1 % Normal 43.0-75.0 [facility] Comment on above: Performed By: #### I WIL, VITAD #### [facility] [address] [place] [address] Dr. Ryann Pearce Platelet mean volume (Bld) [Entitic vol] 9.3 fL Critically low 9.5-13.5 [facility] Comment on above: Performed By: #### I WIL VITAD #### [facility] [address] [place] [address] Dr. Ryann Pearce PLT 255 103/ul Normal 150-450 [facility] Comment on above: Performed By: #### I WIL, VITAD #### [facility] [address] [place] [address] Dr. Ryann Pearce RBC 4.33 106/ul Normal 4.20-5.40 [facility] Comment on above: Performed By: #### I WIL, VITAD #### [facility] [address] [place] [address] Dr. Ryann Pearce WBC 3.3 103/ul Critically low 4.0-11.[address] [facility] Comment on above: Performed By: #### I WIL, VITAD #### [facility] [address] [place] [address] Dr. Ryann Pearce FREE THYROXINE INDEX T7on FTI 2.96 Normal 1.30-4.50 [facility] Comment on above: Performed By: #### T SH, LIPID, T7, CMP #### [facility] [address] [place] [address] Dr. Ryann Pearce T3U 34.0 % Normal 30.0-39.0 [facility] Comment on above: Performed By: #### T SH, LIPID, T7, CMP #### [facility] [address] [place] [address] Dr. Ryann Pearce T4 [Mass/Vol] 8.70 ug/dL Normal 4.80-13.90 [facility] Comment on above: Performed By: #### T SH, LIPID, T7, CMP #### [facility] [address] [place] [address] Dr. Ryann Pearce GLYCOHEMOGLOBIN A1Con 2021 ADA RECOMMENDATION SEE BELOW Normal [facility] Comment on above: Result Comment: ADA RECOMMENDED LIMIT 4.0 - 6.0 ADA THERAPEUTIC TARGET < 7.0 ACTION SUGGESTED > 7.0 Performed By: #### A 1C #### [facility] [address] [place] [address] Dr. Ryann Pearce Glucose [Mass/Vol] 105 mg/dL Normal [facility] Comment on above: Performed By: #### A 1C #### [facility] [address] [place] [address] Dr. Ryann Pearce HbA1c (Bld) [Mass fraction] 5.3 % Normal 4.5-6.2 [facility] Comment on above: Performed By: #### A 1C #### [facility] [address] [place] [address] Dr. Ryann Pearce IRONon 06-06-2022 Iron [Mass/Vol] 104.0 ug/dL Normal 50.0-170.0 [facility] Comment on above: Performed By: #### I NIKI DE LA TORRE #### [facility] [address] [place] [address] [address] Ryann Pearce LIPID PROFILEon 06-06-2022 CHOL-HDL RATIO NORM SEE BELOW Normal [facility] Comment on above: Result Comment: 3.3 - 4.4 LOW RISK 4.4 - 7.1 AVERAGE RISK 7.1 - 11.0 MODERATE RISK >11.0 HIGH RISK Performed By: #### T SH, LIPID, T7, CMP #### [facility] [address] [place] [address] Dr. Ryann Pearce Cholesterol [Mass/Vol] 160 mg/dL Normal <=200 [facility] Comment on above: Performed By: #### T SH, LIPID, T7, CMP #### [facility] [address] [address] [address] Ryann Pearce Cholesterol in HDL [Mass/Vol] 75 mg/dL Critically high 40-60 [facility] Comment on above: Performed By: #### T SH, LIPID, T7, CMP #### [facility] [address] [address] [address] Ryann Pearce Cholesterol in LDL [Mass/Vol] 66.6 mg/dL Normal [facility] Comment on above: Performed By: #### T SH, LIPID, T7, CMP #### [facility] [address] [address] [address] Ryann Pearce Cholesterol.total/Chol esterol in HDL [Mass ratio] 2.1 {ratio} Normal [facility] Comment on above: Performed By: #### T SH, LIPID, T7, CMP #### [facility] [address] [place] [address] Dr. Ryann Pearce HDL NORMAL > or = 60 mg/dl - LOW CARDIOVASCULAR RISK <40 mg/dl - HIGH CARDIOVASCULAR RISK Normal [facility] Comment on above: Performed By: #### T SH, LIPID, T7, CMP #### [facility] [address] [place] [address] Dr. Ryann Pearce LDL CALC NORMAL SEE BELOW Normal [facility] Comment on above: Result Comment: <100 mg/dl OPTIMAL 100 - 129 mg/dl NEAR OR ABOVE OPTIMAL 130 - 159 mg/dl BORDERLINE HIGH 160 - 189 mg/dl HIGH >190 mg/dl VERY HIGH Performed By: #### T SH, LIPID, T7, CMP #### [facility] [address] [address] [address] Ryann Pearce Triglyceride [Mass/Vol] 92 mg/dL Normal <=150 [facility] Comment on above: Performed By: #### T SH, LIPID, T7, CMP #### [facility] [address] [place] [address] Dr. Ryann Pearce VLDL CALC 18.4 mg/dL Normal [facility] Comment on above: Performed By: #### T SH, LIPID, T7, CMP #### [facility] [address] [place] [address] Dr. Ryann Pearce PROF 14(COMP METB)on 022 Albumin [Mass/Vol] 3.4 g/dL Normal 3.4-5.0 [facility] Comment on above: Performed By: #### T SH, LIPID, T7, CMP #### [facility] [address] [place] [address] Dr. Ryann Pearce Albumin/Globulin [Mass ratio] 1.0 {ratio} Normal [facility] Comment on above: Performed By: #### T SH, LIPID, T7, CMP #### [facility] [address] [place] [address] Dr. Ryann Pearce ALP [Catalytic activity/Vol] 71 U/L Normal 46-116 [facility] Comment on above: Performed By: #### T SH, LIPID, T7, CMP #### [facility] [address] [place] [address] Dr. Ryann Pearce ALT [Catalytic activity/Vol] 19 U/L Normal 14-59 [facility] Comment on above: Performed By: #### T SH, LIPID, T7, CMP #### [facility] [address] [address] [address] Ryann Pearce Anion gap [Moles/Vol] 7.8 mmol/L Normal [facility] Comment on above: Performed By: #### T SH, LIPID, T7, CMP #### [facility] [address] [address] [address] Ryann Pearce AST [Catalytic activity/Vol] 21 U/L Normal 15-37 [facility] Comment on above: Performed By: #### T SH, LIPID, T7, CMP #### [facility] [address] [address] [address] Ryann Pearce Bilirubin [Mass/Vol] 0.6 mg/dL Normal 0.2-1.0 [facility] Comment on above: Performed By: #### T SH, LIPID, T7, CMP #### [facility] [address] [address] [address] Ryann Pearce Calcium [Mass/Vol] 8.7 mg/dL Normal 8.5-10.1 [facility] Comment on above: Performed By: #### T SH, LIPID, T7, CMP #### [facility] [address] [address] [address] Ryann Pearce Chloride [Moles/Vol] 103 mmol/L Normal 98-107 [facility] Comment on above: Performed By: #### T SH, LIPID, T7, CMP #### [facility] [address] [address] [address] Ryann Pearce CO2 [Moles/Vol] 34.4 mmol/L Critically high 21.0-32.0 [facility] Comment on above: Performed By: #### T SH, LIPID, T7, CMP #### [facility] [address] [address] [address] Ryann Pearce Creatinine [Mass/Vol] 0.75 mg/dL Normal 0.55-1.02 [facility] Comment on above: Performed By: #### T SH, LIPID, T7, CMP #### [facility] [address] [address] [address] Ryann Pearce EGFR-AF MALAYSIAN >60 Normal >=60 [facility] Comment on above: Performed By: #### T SH, LIPID, T7, CMP #### [facility] [address] [address] [address] Ryann Pearce EGFR-NON AF MALAYSIAN >60 Normal >=60 [facility] Comment on above: Performed By: #### T SH, LIPID, T7, CMP #### [facility] [address] [address] [address] Ryann Pearce Globulin (S) [Mass/Vol] 3.5 g/dL Normal [facility] Comment on above: Performed By: #### T SH, LIPID, T7, CMP #### [facility] [address] [address] [address] Ryann Pearce Glucose [Mass/Vol] 95 mg/dL Normal 74-106 [facility] Comment on above: Performed By: #### T SH, LIPID, T7, CMP #### [facility] [address] [place] [address] Dr. Ryann Pearce Potassium [Moles/Vol] 4.2 mmol/L Normal 3.5-5.1 [facility] Comment on above: Performed By: #### T SH, LIPID, T7, CMP #### [facility] [address] [place] [address] Dr. Ryann Pearce Protein [Mass/Vol] 6.9 g/dL Normal 6.4-8.2 [facility] Comment on above: Performed By: #### T SH, LIPID, T7, CMP #### [facility] [address] [address] [address] Ryann Pearce Sodium [Moles/Vol] 141 mmol/L Normal 136-145 [facility] Comment on above: Performed By: #### T SH, LIPID, T7, CMP #### [facility] [address] [place] [address] Dr. Ryann Pearce Urea nitrogen [Mass/Vol] 10.0 mg/dL Normal 7.0-18.0 [facility] Comment on above: Performed By: #### T SH, LIPID, T7, CMP #### [facility] [address] [place] [address] Dr. Ryann Pearce Urea nitrogen/Creatinine [Mass ratio] 13.3 mg/mg Normal [facility] Comment on above: Performed By: #### T SH, LIPID, T7, CMP #### [facility] [address] [address] [address] Ryann Pearce TSHon 06-06-2022 TSH 0.151 uIU/mL Critically low 0.358-3.740 [facility] Comment on above: Performed By: #### T SH, LIPID, T7, CMP #### [facility] [address] [address] [address] Ryann Pearce VITAMIN D 25 OHon 06-06-2022 VIT D 25-OH 75.4 ng/mL Normal [facility] Comment on above: Performed By: #### I WIL VITAD #### [facility] [address] [place] [address] Dr. Ryann Pearce VIT D RANGES SEE BELOW Normal [facility] Comment on above: Result Comment: <20 ng/mL Vit D deficient 20 - <30 ng/mL Vit D insufficient 30 - 100 ng/mL Vit D sufficient >100 ng/mL Potential Toxicity Performed By: #### I WIL VITAD #### [facility] [address] [place] [address] Dr. Ryann Pearce MG MAMM SCREEN 3D KRISTINA CADon 05-11-2022 MG MAMM SCREEN 3D KRISTINA CAD Patient: BILLIE YEBOAH Exam Date: 05/11/2022 : 1945 Gender:F Ordering : DR GISELLA PORTER . Admission #: [id number] Family : Order #: [id number] CLICK HERE TO VIEW EXAM RADIOLOGY REPORT [...] breast cancer at age 80. LOCATION: The [facility] BREAST COMPOSITION: Scattered areas fibroglandular density. FINDINGS: [...] Macias MD on 05/11/2022 at 12:45 Normal [facility] XR knee RT 2Von 03-16-2022 XR knee RT 2V [facility] Main [address] [place] [id number] XRay Report Signed Patient: Billie Yeboah MR#: [id number] : 1945 Acct:[id number] Age/Sex: 76 / F ADM Date: 03/16/22 Loc: [facility] Room: Type: [facility] Attending Dr: Sydney Erickson II, MD Copies [...] NO HARDWARE COMPLICATION. Impression dictated by: Migue Grovse Jr., DSunOSun03/16/2022 4:22 PM Dictation Location: [place] [address] Transcribed By: [facility] 03/16/221621 Dictated By: Migue Groves Jr, DO 03/16/22 162 Signed By: 03/16/22 162 Normal [facility] XR tibia fibula RT 2V*on XR tibia fibula RT 2V* [facility] Main [address] [address] XRay Report Signed Patient: Billie Yeboah MR#: [id number] : 1945 Acct:[id number] Age/Sex: 76 / F ADM Date: 03/16/22 Loc: [facility] Room: Type: [facility] Attending Dr: Sydney Erickson II, MD Copies to: Sydney Erickson MD Ordering Provider: Sydney Erickson MD Date of Service: 03/16/22 XR/XR tibia fibula RT 2V*: History of total right knee replacement ([id number]) XR/XR femur RT 2V*: History of total [...] Judit Nuno M.D.03/16/2022 4:32 PM Dictation Location: [place] [address] Transcribed By: [facility] 03/16/22 1632 Dictated By: Judit Nuno MD 03/16/22 1630 Signed By: 03/16/22 1632 [facility] CBC AUTO DIFFon 02-21-2022 BASO # 0.0 103/ul Normal 0.0-0.1 [facility] Comment on above: Performed By: #### I NIKI DE LA TORRE #### [facility] [address] [place] [address] Dr. Ryann Pearce Basophils/100 WBC (Bld) 0.5 % Normal 0.2-2.0 [facility] Comment on above: Performed By: #### NIKI MORALES #### [facility] [address] [place] [address] Dr. Ryann Pearce EO # 0.2 103/ul Normal 0.0-0.7 [facility] Comment on above: Performed By: #### I WIL VITAD #### [facility] [address] [place] [address] Dr. Ryann Pearce Eosinophils/100 WBC (Bld) 3.9 % Normal 0.9-7.0 [facility] Comment on above: Performed By: #### Mike DE LA TORRE VITAD #### [facility] [address] [place] [address] Dr. Ryann Pearce Erythrocyte distribution width (RBC) [Ratio] 12.8 % Normal 11.0-15.0 [facility] Comment on above: Performed By: #### Mike DE LA TORRE VITAD #### [facility] [address] [place] [address] Dr. Ryann Pearce Hematocrit (Bld) [Volume fraction] 36.5 % Normal 36.0-48.0 [facility] Comment on above: Performed By: #### Mike DE LA TORRE VITAD #### [facility] [address] [place] [address] Dr. Ryann Pearce Hemoglobin (Bld) [Mass/Vol] 11.9 g/dL Critically low 12.0-16.0 [facility] Comment on above: Performed By: #### Mike DE LA TORRE VITAD #### [facility] [address] [place] [address] Dr. Ryann Pearce IG # 0.01 10e3/ul Normal 0.00-0.03 [facility] Comment on above: Performed By: #### Mike DE LA TORRE VITAD #### [facility] [address] [place] [address] Dr. Ryann Pearce IG % 0.2 % Normal 0.0-0.5 [facility] Comment on above: Performed By: #### I WIL VITAD #### [facility] [address] [place] [address] Dr. Ryann Pearce LYMPH # 1.1 103/ul Critically low 1.2-3.8 [facility] Comment on above: Performed By: #### Mike DE LA TORRE VITAD #### [facility] [address] [place] [address] Dr. Ryann Pearce Lymphocytes/100 WBC (Bld) 25.5 % Normal 20.5-60.0 [facility] Comment on above: Performed By: #### I WIL, VITAD #### [facility] [address] [place] [address] Dr. Ryann Pearce MANUAL DIFF REQ NO Normal [facility] Comment on above: Performed By: #### I WIL, VITAD #### [facility] [address] [place] [address] Dr. Ryann Pearce MCH (RBC) [Entitic mass] 29.6 pg Normal 26.7-34.0 [facility] Comment on above: Performed By: #### I WIL, VITAD #### [facility] [address] [place] [address] Dr. Ryann Pearce MCHC (RBC) [Mass/Vol] 32.6 g/dL Normal 29.9-35.2 [facility] Comment on above: Performed By: #### I WIL, VITAD #### [facility] [address] [place] [address] Dr. Ryann Pearce MCV (RBC) [Entitic vol] 90.8 fL Normal 81.0-99.0 [facility] Comment on above: Performed By: #### I WIL, VITAD #### [facility] [address] [place] [address] Dr. Ryann Pearce MONO # 0.4 103/ul Normal 0.3-0.8 [facility] Comment on above: Performed By: #### I WIL, VITAD #### [facility] [address] [place] [address] Dr. Ryann Pearce Monocytes/100 WBC (Bld) 10.4 % Normal 1.7-12.0 [facility] Comment on above: Performed By: #### I WIL, VITAD #### [facility] [address] [place] [address] Dr. Ryann Pearce NEUT # 2.5 103/ul Normal 1.4-6.5 [facility] Comment on above: Performed By: #### I WIL, VITAD #### [facility] [address] [address] [address] Ryann Pearce Neutrophils/100 WBC (Bld) 59.5 % Normal 43.0-75.0 [facility] Comment on above: Performed By: #### I WIL, VITAD #### [facility] [address] [place] [address] Dr. Ryann Pearce Platelet mean volume (Bld) [Entitic vol] 9.1 fL Critically low 9.5-13.5 [facility] Comment on above: Performed By: #### I WIL, VITAD #### [facility] [address] [place] [address] Dr. Ryann Pearce PLT 283 103/ul Normal 150-450 [facility] Comment on above: Performed By: #### I WIL, VITAD #### [facility] [address] [place] [address] Dr. Ryann Pearce RBC 4.02 106/ul Critically low 4.20-5.40 [facility] Comment on above: Performed By: #### I WIL VITAD #### [facility] [address] [place] [address] Dr. Ryann Pearce WBC 4.2 103/ul Normal 4.0-11.0 [facility] Comment on above: Performed By: #### I WIL, VITAD #### [facility] [address] [place] [address] Dr. Ryann Pearce PROF 14(COMP METB)on 022 Albumin [Mass/Vol] 3.5 g/dL Normal 3.4-5.0 [facility] Comment on above: Performed By: #### I WIL, VITAD #### [facility] [address] [place] [address] Dr. Ryann Pearce Albumin/Globulin [Mass ratio] 1.0 {ratio} Normal [facility] Comment on above: Performed By: #### Mike DE LA TORRE, VITAD #### [facility] [address] [place] [address] Dr. Ryann Pearce ALP [Catalytic activity/Vol] 68 U/L Normal 46-116 [facility] Comment on above: Performed By: #### I WIL, VITAD #### [facility] [address] [place] [address] Dr. Ryann Pearce ALT [Catalytic activity/Vol] 22 U/L Normal 14-59 [facility] Comment on above: Performed By: #### I WIL, VITAD #### [facility] [address] [place] [address] Dr. Ryann Pearce Anion gap [Moles/Vol] 11.8 mmol/L Normal [facility] Comment on above: Performed By: #### I WIL, VITAD #### [facility] [address] [place] [address] Dr. Ryann Pearce AST [Catalytic activity/Vol] 21 U/L Normal 15-37 [facility] Comment on above: Performed By: #### I WIL, VITAD #### [facility] [address] [place] [address] Dr. Ryann Pearce Bilirubin [Mass/Vol] 0.5 mg/dL Normal 0.2-1.0 [facility] Comment on above: Performed By: #### I WIL, VITAD #### [facility] [address] [place] [address] Dr. Ryann Pearce Calcium [Mass/Vol] 8.9 mg/dL Normal 8.5-10.1 [facility] Comment on above: Performed By: #### I WIL, VITAD #### [facility] [address] [place] [address] Dr. Ryann Pearce Chloride [Moles/Vol] 104 mmol/L Normal 98-107 [facility] Comment on above: Performed By: #### I WIL, VITAD #### [facility] [address] [place] [address] Dr. Ryann Pearce CO2 [Moles/Vol] 29.1 mmol/L Normal 21.0-32.0 [facility] Comment on above: Performed By: #### I WIL, VITAD #### [facility] [address] [place] [address] Dr. Ryann Pearce Creatinine [Mass/Vol] 0.66 mg/dL Normal 0.55-1.02 [facility] Comment on above: Performed By: #### Mike DE LA TORRE, VITAD #### [facility] [address] [place] [address] Dr. Ryann Pearce EGFR-AF MALAYSIAN >60 Normal >=60 [facility] Comment on above: Performed By: #### Mike DE LA TORRE, VITAD #### [facility] [address] [place] [address] Dr. Ryann Pearce EGFR-NON AF MALAYSIAN >60 Normal >=60 [facility] Comment on above: Performed By: #### I WIL, VITAD #### [facility] [address] [place] [address] Dr. Ryann Pearce Globulin (S) [Mass/Vol] 3.4 g/dL Normal [facility] Comment on above: Performed By: #### Mike DE LA TORRE, VITAD #### [facility] [address] [place] [address] Dr. Ryann Pearce Glucose [Mass/Vol] 106 mg/dL Normal 74-106 [facility] Comment on above: Performed By: #### I WIL, VITAD #### [facility] [address] [place] [address] Dr. Ryann Pearce Potassium [Moles/Vol] 3.9 mmol/L Normal 3.5-5.1 [facility] Comment on above: Performed By: #### Mike DE LA TORRE, VITAD #### [facility] [address] [place] [address] Dr. Ryann Pearce Protein [Mass/Vol] 6.9 g/dL Normal 6.4-8.2 [facility] Comment on above: Performed By: #### I WIL, VITAD #### [facility] [address] [place] [address] Dr. Ryann Pearce Sodium [Moles/Vol] 141 mmol/L Normal 136-145 [facility] Comment on above: Performed By: #### Mike DE LA TORRE, VITAD #### [facility] [address] [place] [address] Dr. Ryann Pearce Urea nitrogen [Mass/Vol] 14.0 mg/dL Normal 7.0-18.0 [facility] Comment on above: Performed By: #### I WIL VITAD #### [facility] [address] [address] [address] Ryann Pearce Urea nitrogen/Creatinine [Mass ratio] 21.2 mg/mg Normal [facility] Comment on above: Performed By: #### I WIL VITAD #### [facility] [address] [address] [address] Ryann Pearce XR knee RT 3Von 02-02-2022 XR knee RT 3V [facility] [employer] Other XR knee RT 3V [facility] [employer] Other XR knee RT 3V [address] [place] [address] [employer] Other XR knee RT 3V [address] [employer] Other XR knee RT 3V XRay Report [employer] Other XR knee RT 3V Signed [employer] Other XR knee RT 3V Patient: Billie Yeboah MR#: [id number] [employer] Other XR knee RT 3V [id number] [employer] Other XR knee RT 3V : 1945 Acct:[id number] [employer] Other XR knee RT 3V Age/Sex: 76 / F ADM Date: 02/02/22 [employer] Other XR knee RT 3V Loc: [facility] Room: Type: [facility] [employer] Other XR knee RT 3V Attending Dr: Sydney Erickson II, MD [employer] Other XR knee RT 3V Copies to: Sydney Erickson MD [employer] Other XR knee RT 3V Ordering Provider: Sydney Erickson MD [employer] Other XR knee RT 3V Date of Service: 02/02/22 [employer] Other XR knee RT 3V XR/XR knee RT 3V - NOT FOR ER USE: History of total right knee [employer] Other XR knee RT 3V replacement [employer] Other XR knee RT 3V RIGHT KNEE - 3 views [employer] Other XR knee RT 3V CLINICAL HISTORY: Follow-up right total knee arthroplasty [employer] Other XR knee RT 3V COMPARISON: Right knee 12/20/2021 [employer] Other XR knee RT 3V FINDINGS: [employer] Other XR knee RT 3V Right knee prosthesis without radiographic complication. No acute bony process. [employer] Other XR knee RT 3V XR/XR knee RT 3V - NOT FOR ER USE [employer] Other XR knee RT 3V IMPRESSION: [employer] Other XR knee RT 3V NO EVIDENCE OF HARDWARE COMPLICATION. [employer] Other XR knee RT 3V Impression dictated by: Migue Groves Jr., D.OSun02/02/2022 4:27 PM [employer] Other XR knee RT 3V Dictation Location: [place] [address] [employer] Other XR knee RT 3V Transcribed By: AMEENA 02/02/22 [facility] [employer] Other XR knee RT 3V Dictated By: Migue Groves Jr, DO 02/02/22 [facility] [employer] Other XR knee RT 3V Signed By: [employer] Other XR knee RT 3V 02/02/22 1627 [employer] Other XR knee RT 3V - NOT FOR ER U Jeimy 02-02-2022 XR knee RT 3V - NOT FOR ER USE [facility] Main [place] [address] [place], [place] [id number] XRay Report Signed Patient: Billie Yeboah MR#: [id number] : 1945 Acct:[id number] Age/Sex: 76 / F ADM Date: 02/02/22 Loc: [facility] Room: Type: [facility] Attending Dr: Sydney Erickson II, MD Copies [...] COMPLICATION. Impression dictated by: Migue Groves Jr., D.OSun02/02/2022 4:27 PM Dictation Location: [place] [address] Transcribed By: [facility] 02/02/221626 Dictated By: Migue Groves Jr, DO 02/02/221625 Signed By: 02/02/22 162 Normal [facility] COVID-19 Positive/NegativeOr dered By: Sydney Erickson on 12-17-2021 SARS-CoV-2 (COVID-19) N gene BRAULIO+probe Ql (Resp) Negative Negative [facility] Comment on above: Testing for SARS-CoV -2 by RT-PCR This test was developed and its performance characteristics determined by [employer] ([employer]) and validated at the [facility]. This test has not been FDA [...] Auto (Urine sed) [#/Area] 1-2 [HPF] 0-4 [facility] Automated leukocytes count i n urine sediment (number/area)Ordered By: Sydney Erickson on 12-07-2021 WBC Auto (Urine sed) [#/Area] None seen [HPF] 0-4 [facility] Basophils Auto (Bld) [#/Vol] Ordered By: Sydney Erickson on 12-07-2021 Basophils (Bld) [#/Vol] 0.0 10*3/uL 0.0-0.2 [facility] Basophils/100 WBC Auto (Bld) Ordered By: Sydney Erickson on 12-07-2021 Basophils/100 WBC (Bld) 0.9 % . [facility] Bilirubin Test strip Ql (U)O rdered By: Sydney Erickson on 12-07-2021 Bilirubin Ql (U) Negative Negative [facility] Blood hemoglobin measurement (mass/volume)Ordered By: Sydney Erickson on 12-07-2021 Hemoglobin (Bld) [Mass/Vol] 13.1 g/dL 11.8-15.4 [facility] Blood leukocytes automated c ount (number/volume)Ordered By: Sydney Erickson on 12-07-2021 WBC (Bld) [#/Vol] 3.8 10*3/uL 4.5-11.[address] [facility] [address] biopsyOrdered By: Sydney Erickson on 12-07-2021 CT biopsy 241 umol/L 0-285 [facility] Comment on above: Published reference interval for apparently healthy subjects between age 20 and 60 is 205 - 285 umol/L and in a poorly controlled diabetic population is 228 - 563 umol/L with a mean of 396 umol/L. Performed at: [address] [id number] Manager Agency: Fortunato Garcia PhD, Phone: [phone] Color Auto (U)Ordered By: Xuan Erickson on 12-07-2021 Color (U) Yellow Yellow [facility] Creatinine and Glomerular fi ltration rate.predicted panel (S/P/Bld)Ordered By: Sydney Erickson on 12-07-2021 Creatinine [Mass/Vol] 0.86 mg/dL 0.44-1.03 [facility] Eosinophils Auto (Bld) [#/Vo l]Ordered By: Sydney Erickson on 12-07-2021 Eosinophils (Bld) [#/Vol] 0.1 10*3/uL 0.0-0.45 [facility] Eosinophils/100 WBC Auto (Bl d)Ordered By: Sydney Erickson on 12-07-2021 Eosinophils/100 WBC (Bld) 2.4 % . [facility] Erythrocyte distribution wid th Auto (RBC) [Ratio]Ordered By: Sydney Erickson on 12-07-2021 Erythrocyte distribution width (RBC) [Ratio] 12.5 % 11.9-15.3 [facility] Estimated glomerular filtrat ion rate (GFR) non- AmericanOrdered By: Sydney Erickson on 12-07-2021 GFR/1.73 sq M.predicted among non-blacks MDRD (S/P/Bld) [Vol rate/Area] > 60 mL/Min [facility] Hematocrit Auto (Bld) [Volum e fraction]Ordered By: Sydney Erickson on 12-07-2021 Hematocrit (Bld) [Volume fraction] 39.0 % 34.0-46.4 [facility] Ketones Auto test strip (U) [Mass/Vol]Ordered By: Sydney Erickson on 12-07-2021 Ketones (U) [Mass/Vol] Negative Negative Fi [facility] - Hematology and Cell countsOrdered By: Sydney Erickson on 12-07-2021 Nucleated RBC/100 WBC (Bld) [Ratio] 0.0 % 0-0.5 [facility] Laboratory - UrinalysisOrder ed By: Sydney Erickson on 12-07-2021 Hyaline casts LM Ql (Urine sed) None seen [LPF] 0-8 [facility] [facility] Lymphocytes Auto (Bld) [#/Vo l]Ordered By: Sydney Erickson on 12-07-2021 Lymphocytes (Bld) [#/Vol] 1.0 10*3/uL 1.00-4.8 [facility] Lymphocytes/100 WBC Auto (Bl d)Ordered By: Sydney Erickson on 12-07-2021 Lymphocytes/100 WBC (Bld) 26.7 % . [facility] MCH Auto (RBC) [Entitic mass ]Ordered By: Sydney Erickson on 12-07-2021 MCH (RBC) [Entitic mass] 29.7 pg 24.7-34.3 [facility] MCHC Auto (RBC) [Mass/Vol]Or dered By: Sydney Erickson on 12-07-2021 MCHC (RBC) [Mass/Vol] 33.5 g/dL 32.0-35.0 [facility] MCV Auto (RBC) [Entitic vol] Ordered By: Sydney Erickson on 12-07-2021 MCV (RBC) [Entitic vol] 88.7 fL 80-100 [facility] Monocytes Auto (Bld) [#/Vol] Ordered By: Sydney Erickson on 12-07-2021 Monocytes (Bld) [#/Vol] 0.4 10*3/uL 0.0-0.8 [facility] Monocytes/100 WBC Auto (Bld) Ordered By: Sydney Erickson on 12-07-2021 Monocytes/100 WBC (Bld) 11.1 % . [facility] Neutrophils Auto (Bld) [#/Vo l]Ordered By: Sydney Erickson on 12-07-2021 Neutrophils (Bld) [#/Vol] 2.2 10*3/uL 1.8-7.7 [facility] Neutrophils/100 WBC Auto (Bl d)Ordered By: Sydney Erickson on 12-07-2021 Neutrophils/100 WBC (Bld) 58.9 % . [facility] Nitrite Test strip Ql (U)Ord ered By: Sydney Erickson on 12-07-2021 Nitrite Ql (U) Negative Negative [facility] No Panel InformationOrdered By: Sydney Erickson on 12-07-2021 Estimated GFR () > 60 mL/Min [facility] Comment on above: GFR estimated refere nce range: According to KDOQI guidelines, <60 ml/min/1.73m2 is sufficient to diagnose a patient with chronic kidney disease. Pharmacy Creatinine Clearance (Chem N/A [facility] Platelet mean volume Auto (B ld) [Entitic vol]Ordered By: Sydney Erickson on 12-07-2021 Platelet mean volume (Bld) [Entitic vol] 8.2 fL 6.3-10.7 [facility] Platelets Auto (Bld) [#/Vol] Ordered By: Sydney Erickson on 12-07-2021 Platelets (Bld) [#/Vol] 274 10*3/uL 150-450 [facility] Protein Auto test strip (U) [Mass/Vol]Ordered By: Sydney Erickson on 12-07-2021 Protein (U) [Mass/Vol] Negative Negative [facility] RBC Auto (Bld) [#/Vol]Ordere d By: Sydney Erickson on 12-07-2021 RBC (Bld) [#/Vol] 4.40 10*6/uL 3.60-5.00 [facility] Serum or plasma calcium catalino urement (mass/volume)Ordered By: Sydney Erickson on 12-07-2021 Calcium [Mass/Vol] 9.3 mg/dL 8.2-10.2 [facility] Serum or plasma chloride juan surement (moles/volume)Ordered By: Sydney Erickson on 12-07-2021 Chloride [Moles/Vol] 99 mmol/L 95-114 [facility] Serum or plasma glucose catalino urement (mass/volume)Ordered By: Sydney Erickson on 12-07-2021 Glucose [Mass/Vol] 94 mg/dL 70-100 [facility] Comment on above: ADA recommended refe rence range Random Glucose Reference Range is dependent on time and content of last meal. Glucose of more than 200 mg/dL in a nonstressed, ambulatory subject supports the diagnosis of Diabetes Mellitus. Serum or plasma potassium me asurement (moles/volume)Ordered By: Sydney Erickson on 12-07-2021 Potassium [Moles/Vol] 4.4 mmol/L 3.5-5.1 [facility] Serum or plasma sodium measu rement (moles/volume)Ordered By: Sydney Erickson on 12-07-2021 Sodium [Moles/Vol] 139 mmol/L 136-146 [facility] Serum or plasma total carbon dioxide measurement (moles/volume)Ordered By: Sydney Erickson on 12-07-2021 CO2 [Moles/Vol] 26.7 mmol/L 22.0-30.0 [facility] Serum or plasma urea nitroge n measurement (mass/volume)Ordered By: Sydney Erickson on 12-07-2021 Urea nitrogen [Mass/Vol] 14 mg/dL 9-23 [facility] Specific gravity Auto test s trip (U) [Rel density]Ordered By: Sydney Erickson on 12-07-2021 Specific gravity (U) [Rel density] 1.010 1.001-1.030 [facility] Squamous epithelial cells de tection in urine sediment by light microscopyOrdered By: Sydney Erickson on 12-07-2021 Epithelial cells.squamous LM Ql (Urine sed) None seen [HPF] 0-2 [facility] Urine bacteria detection by automated methodOrdered By: Sydney Erickson on 12-07-2021 Bacteria Auto Ql (U) None seen None Seen [facility] Urine clarity by refractomet ry automatedOrdered By: Sydney Erickson on 12-07-2021 Clarity Refractometry automated (U) Clear Clear [facility] Urine glucose measurement by automated test strip (mass/volume)Ordered By: Sydney Erickson on 12-07-2021 Glucose Auto test strip (U) [Mass/Vol] Normal mg/dL Normal [facility] Urine hemoglobin detection b y automated test stripOrdered By: Sydney Erickson on 12-07-2021 Hemoglobin Auto test strip Ql (U) Negative Negative [facility] Urine leukocyte esterase det ection by automated test stripOrdered By: Sydney Erickson on 12-07-2021 Leukocyte esterase Auto test strip Ql (U) 1+ Negative [facility] Urobilinogen Auto test strip (U) [Mass/Vol]Ordered By: Sydney Erickson on 12-07-2021 Urobilinogen (U) [Mass/Vol] Normal mg/dL Normal [facility] pH Auto test strip (U)Ordere d By: Sydney Erickson on 12-07-2021 pH (U) 7.5 [pH] 5.0-9.0 [facility] CBC AUTO DIFFon 09-01-2021 BASO # 0.0 103/ul Normal 0.0-0.1 [facility] Comment on above: Performed By: #### Mike DE LA TORRE VITAD #### [facility] [address] [place] [address] Dr. Ryann Pearce Basophils/100 WBC (Bld) 0.8 % Normal 0.2-2.0 [facility] Comment on above: Performed By: #### Mike DE LA TORRE VITAD #### [facility] [address] [address] [address] Ryann Pearce EO # 0.2 103/ul Normal 0.0-0.7 [facility] Comment on above: Performed By: #### Mike DE LA TORRE VITAD #### [facility] [address] [address] [address] Ryann Pearce Eosinophils/100 WBC (Bld) 4.1 % Normal 0.9-7.0 [facility] Comment on above: Performed By: #### Mike DE LA TORRE VITAD #### [facility] [address] [address] [address] Ryann Pearce Erythrocyte distribution width (RBC) [Ratio] 12.5 % Normal 11.0-15.0 [facility] Comment on above: Performed By: #### Mike DE LA TORRE VITAD #### [facility] [address] [place] [address] Dr. Ryann Pearce Hematocrit (Bld) [Volume fraction] 37.6 % Normal 36.0-48.0 [facility] Comment on above: Performed By: #### Mike DE LA TORRE, VITAD #### [facility] [address] [address] [address] Ryann Pearce Hemoglobin (Bld) [Mass/Vol] 12.3 g/dL Normal 12.0-16.0 [facility] Comment on above: Performed By: #### I WIL, VITAD #### [facility] [address] [place] [address] Dr. Ryann Pearce IG # 0.02 10e3/ul Normal 0.00-0.03 [facility] Comment on above: Performed By: #### I WIL, VITAD #### [facility] [address] [place] [address] Dr. Ryann Pearce IG % 0.5 % Normal 0.0-0.5 [facility] Comment on above: Performed By: #### I WIL, VITAD #### [facility] [address] [place] [address] Dr. Ryann Pearce LYMPH # 1.1 103/ul Critically low 1.2-3.[address] [facility] Comment on above: Performed By: #### I WIL, VITAD #### [facility] [address] [place] [address] Dr. Ryann Pearce Lymphocytes/100 WBC (Bld) 29.0 % Normal 20.5-60.0 [facility] Comment on above: Performed By: #### I WIL, VITAD #### [facility] [address] [place] [address] Dr. Ryann Pearce MANUAL DIFF REQ NO Normal [facility] Comment on above: Performed By: #### I WIL, VITAD #### [facility] [address] [place] [address] Dr. Ryann Pearce MCH (RBC) [Entitic mass] 30.5 pg Normal 26.7-34.0 [facility] Comment on above: Performed By: #### I WIL, VITAD #### [facility] [address] [place] [address] Dr. Ryann Pearce MCHC (RBC) [Mass/Vol] 32.7 g/dL Normal 29.9-35.2 [facility] Comment on above: Performed By: #### I WIL, VITAD #### [facility] [address] [place] [address] Dr. Ryann Pearce MCV (RBC) [Entitic vol] 93.3 fL Normal 81.0-99.0 [facility] Comment on above: Performed By: #### Mike DE LA TORRE, VITAD #### [facility] [address] [place] [address] Dr. Ryann Pearce MONO # 0.5 103/ul Normal 0.3-0.8 [facility] Comment on above: Performed By: #### I WIL, VITAD #### [facility] [address] [place] [address] Dr. Ryann Pearce Monocytes/100 WBC (Bld) 13.1 % Critically high 1.7-12.0 [facility] Comment on above: Performed By: #### Mike DE LA TORRE VITAD #### [facility] [address] [place] [address] Dr. Ryann Pearce NEUT # 2.0 103/ul Normal 1.4-6.5 [facility] Comment on above: Performed By: #### Mike DE LA TORRE VITAD #### [facility] [address] [place] [address] Dr. Ryann Pearce Neutrophils/100 WBC (Bld) 52.5 % Normal 43.0-75.0 [facility] Comment on above: Performed By: #### Mike DE LA TORRE VITAD #### [facility] [address] [place] [address] Dr. Ryann Pearce Platelet mean volume (Bld) [Entitic vol] 9.0 fL Critically low 9.5-13.5 [facility] Comment on above: Performed By: #### Mike DE LA TORRE VITAD #### [facility] [address] [place] [address] Dr. Ryann Pearce PLT 229 103/ul Normal 150-450 [facility] Comment on above: Performed By: #### Mike DE LA TORRE, VITAD #### [facility] [address] [place] [address] Dr. Ryann Pearce RBC 4.03 106/ul Critically low 4.20-5.40 [facility] Comment on above: Performed By: #### I NIKI DE LA TORRE #### [facility] [address] [place] [address] Dr. Ryann Pearce WBC 3.9 103/ul Critically low 4.0-11.[address] [facility] Comment on above: Performed By: #### I NIKI DE LA TORRE #### [facility] [address] [place] [address] Dr. Ryann Pearce PROF 14(COMP METB)on 022 Albumin [Mass/Vol] 3.1 g/dL Critically low 3.5-5.0 [facility] Comment on above: Performed By: #### C MP #### [facility] [address] [place] [address] Dr. Ryann Pearce Albumin/Globulin [Mass ratio] 0.9 {ratio} Normal [facility] Comment on above: Performed By: #### C MP #### [facility] [address] [place] [address] Dr. Ryann Pearce ALP [Catalytic activity/Vol] 66 U/L Normal 38-126 [facility] Comment on above: Performed By: #### C MP #### [facility] [address] [place] [address] Dr. Ryann Pearce ALT [Catalytic activity/Vol] 28 U/L Normal 9-52 [facility] Comment on above: Performed By: #### C MP #### [facility] [address] [place] [address] Dr. Ryann Pearce Anion gap [Moles/Vol] 9.8 mmol/L Normal [facility] Comment on above: Performed By: #### C MP #### [facility] [address] [place] [address] Dr. Ryann Pearce AST [Catalytic activity/Vol] 22 U/L Normal 14-36 [facility] Comment on above: Performed By: #### C MP #### [facility] [address] [place] [address] Dr. Ryann Pearce Bilirubin [Mass/Vol] 0.5 mg/dL Normal 0.2-1.3 [facility] Comment on above: Performed By: #### C MP #### [facility] [address] [place] [address] Dr. Ryann Pearce Calcium [Mass/Vol] 8.5 mg/dL Normal 8.4-10.2 [facility] Comment on above: Performed By: #### C MP #### [facility] [address] [place] [address] Dr. Ryann Pearce Chloride [Moles/Vol] 102 mmol/L Normal 98-107 [facility] Comment on above: Performed By: #### C MP #### [facility] [address] [place] [address] Dr. Ryann Pearce CO2 [Moles/Vol] 31.7 mmol/L Critically high 22.0-30.0 [facility] Comment on above: Performed By: #### C MP #### [facility] [address] [place] [address] Dr. Ryann Pearce Creatinine [Mass/Vol] 0.91 mg/dL Normal 0.52-1.04 [facility] Comment on above: Performed By: #### C MP #### [facility] [address] [place] [address] Dr. Ryann Pearce EGFR-AF MALAYSIAN >60 Normal >=60 [facility] Comment on above: Performed By: #### C MP #### [facility] [address] [place] [address] Dr. Ryann Pearce EGFR-NON AF MALAYSIAN =60 Normal >=60 [facility] Comment on above: Performed By: #### C MP #### [facility] [address] [place] [address] Dr. Ryann Pearce Globulin (S) [Mass/Vol] 3.3 g/dL Normal [facility] Comment on above: Performed By: #### C MP #### [facility] [address] [place] [address] Dr. Ryann Pearce Glucose [Mass/Vol] 89 mg/dL Normal 74-106 [facility] Comment on above: Performed By: #### C MP #### [facility] [address] [address] [address] Ryann Pearce Potassium [Moles/Vol] 4.5 mmol/L Normal 3.4-5.0 [facility] Comment on above: Performed By: #### C MP #### [facility] [address] [address] [address] Ryann Pearce Protein [Mass/Vol] 6.4 g/dL Normal 6.1-8.2 [facility] Comment on above: Performed By: #### C MP #### [facility] [address] [address] [address] Ryann Pearce Sodium [Moles/Vol] 139 mmol/L Normal 137-145 [facility] Comment on above: Performed By: #### C MP #### [facility] [address] [address] [address] Ryann Pearce Urea nitrogen [Mass/Vol] 14.0 mg/dL Normal 7.0-17.0 [facility] Comment on above: Performed By: #### C MP #### [facility] [address] [address] [address] Ryann Pearce Urea nitrogen/Creatinine [Mass ratio] 15.4 mg/mg Normal [facility] Comment on above: Performed By: #### C MP #### [facility] [address] [address] [address] Ryann Pearce Vital Signs Date Time Vital Sign Value Performing Clinician Facility 02-28-2024 14: Body height 167.6 cm Pacc 2 Work Phone: [facility] 02-28-2024 14:29-040 Body mass index (BMI) [Ratio] 23.77 kg/m2 Pacc 2 Work Phone: [facility] 02-28-2024 14:29040 Body temperature 97.7 [degF] Pacc 2 Work Phone: [facility] 02-28-2024 14:29040 Body weight 66.8 kg Pacc 2 Work Phone: [facility] 02-28-2024 14:29-0400 Diastolic blood pressure 82 mm[Hg] Pacc 2 Work Phone: [facility] 02-28-2024 14:29-0400 Heart rate 120 /min Pacc 2 Work Phone: [facility] 02-28-2024 14:29-0400 Respiratory rate 18 /min Pacc 2 Work Phone: [facility] 02-28-2024 14:29-0400 SaO2% (BldA) [Mass fraction] 97 % Pacc 2 Work Phone: [facility] 02-28-2024 14:29-0400 Systolic blood pressure 140 mm[Hg] Pacc 2 Work Phone: [facility] 02-23-2024 14:03-0400 Body height 167.6 cm Funmilayo Odell MD Work Phone: [facility] 02-23-2024 14:03-0400 Body mass index (BMI) [Ratio] 23.08 kg/m2 Funmilayo Odell MD Work Phone: [facility] 02-23-2024 14:03-0400 Body temperature 97.5 [degF] Funmilayo Odell MD Work Phone: [facility] 02-23-2024 14:03-0400 Body weight 64.86 kg Funmilayo Odell MD Work Phone: [facility] Comment on above: per pt. 02-23-2024 14:03-0400 Diastolic blood pressure 83 mm[Hg] Funmilayo Odell MD Work Phone: [facility] 02-23-2024 14:03-0400 Heart rate 103 /min Funmilayo Odell MD Work Phone: [facility] 02-23-2024 14:03-0400 SaO2% (BldA) [Mass fraction] 94 % Funmilayo Odell MD Work Phone: [facility] 02-23-2024 14:03-0400 Systolic blood pressure 134 mm[Hg] Funmilayo Odell MD Work Phone: [facility] 11-03-2023 14:18-0400 Body temperature 97.11 [degF] Funmilayo Odell MD Work Phone: [facility] 11-03-2023 14:18-0400 Diastolic blood pressure 87 mm[Hg] Funmilayo Odell MD Work Phone: [facility] 11-03-2023 14:18-0400 Heart rate 85 /min Funmilayo Odell MD Work Phone: [facility] 11-03-2023 14:18-0400 SaO2% (BldA) [Mass fraction] 98 % Funmilayo Odell MD Work Phone: [facility] 11-03-2023 14:18-0400 Systolic blood pressure 179 mm[Hg] Funmilayo Odell MD Work Phone: [facility] 12-07-2022 10:00-0400 Body height 165.1 cm Ivette Brandon Other [facility] Other 12-07-2022 10:00-0400 Body mass index (BMI) [Ratio] 24.96 kg/m2 Ivettelatonya Taylor Other [facility] Other 12-07-2022 10:00-0400 Body weight 68.04 kg Ivettelatonya Taylor Other [facility] Other 10-27-2022 13:59-0400 Diastolic blood pressure 74 mm[Hg] Funmilayo Odell MD Work Phone: [facility] 10-27-2022 13:59-0400 Heart rate 98 /min Funmilayo Odell MD Work Phone: [facility] 10-27-2022 13:59-0400 SaO2% (BldA) [Mass fraction] 96 % Funmilayo Odell MD Work Phone: [facility] 10-27-2022 13:59-0400 Systolic blood pressure 137 mm[Hg] Funmilayo Odell MD Work Phone: [facility] 09-21-2022 11:31-0400 Diastolic blood pressure 90 mm[Hg] MD Gisella Porter Work Phone: [facility] 09-21-2022 11:31-0400 Heart rate 94 /min MD Gisella Porter Work Phone: [facility] 09-21-2022 11:31-0400 Respiratory rate 18 /min MD Gisella Porter Work Phone: [facility] 09-21-2022 11:31-0400 SaO2% (BldA) [Mass fraction] 98 % MD Gisella Porter Work Phone: [facility] 09-21-2022 11:31-0400 Systolic blood pressure 146 mm[Hg] MD Gisella Porter Work Phone: [facility] 09-21-2022 10:09-0400 Body height 167.64 cm MD Gisella Porter Work Phone: [facility] 09-21-2022 10:09-0400 Body temperature 98.7 [degF] MD Gisella Porter Work Phone: [facility] 09-21-2022 10:09-0400 Body weight 64.41 kg MD Gisella Porter Work Phone: [facility] 01-05-2022 14:45-0400 Body height 165.1 cm Sydney Andersenle II Other [facility] Other 01-05-2022 14:45-0400 Body mass index (BMI) [Ratio] 22.96 kg/m2 Sydney [place] II Other [facility] Other 01-05-2022 14:45-0400 Body weight 62.6 kg Sydney [place] Other [facility] Other 12-20-2021 12:31-0400 Diastolic blood pressure 94 mm[Hg] MD Gisella Porter Work Phone: [facility] 12-20-2021 12:31-0400 Heart rate 78 /min MD Gisella Porter Work Phone: [facility] 12-20-2021 12:31-0400 Respiratory rate 16 /min MD Gisella Porter Work Phone: [facility] 12-20-2021 12:31-0400 SaO2% (BldA) [Mass fraction] 99 % MD Gisella Porter Work Phone: [facility] 12-20-2021 12:31-0400 Systolic blood pressure 172 mm[Hg] MD Gisella Porter Work Phone: [facility] 12-20-2021 09:35-0400 Body temperature 97.8 [degF] MD Gisella Porter Work Phone: [facility] 12-20-2021 09:35-0400 Inhaled oxygen flow rate 6 L/min MD Gisella Porter Work Phone: [facility] 12-20-2021 08:23-0400 Body height 167.64 cm MD Gisella Porter Work Phone: [facility] 12-20-2021 08:23-0400 Body mass index (BMI) [Ratio] 23.8 kg/m2 MD Gisella Porter Work Phone: [facility] 12-20-2021 08:23-0400 Body weight 67 kg MD Gisella Porter Work Phone: [facility] 11-10-2021 10:45-0400 Body height 165.1 cm Sydney Erickson II Other [facility] Other 11-10-2021 10:45-0400 Body mass index (BMI) [Ratio] 23.13 kg/m2 Sydney [place] Other [facility] Other 11-10-2021 10:45-0400 Body weight 63.05 kg Sydney [place] II Other [facility] Other 04-20-2021 11:45-0400 Body height 165.1 cm Manoj Forbes Other [facility] Other 04-20-2021 11:45-0400 Body mass index (BMI) [Ratio] 23.13 kg/m2 Manoj Forbes Other [facility] Other 04-20-2021 11:45-0400 Body weight 63.05 kg Manoj Forbes Other [facility] Other 04-20-2021 11:45-0400 Diastolic blood pressure 106 mm[Hg] Manoj Forbes Other [facility] Other 04-20-2021 11:45-0400 Systolic blood pressure 155 mm[Hg] Manoj Forbes Other [facility] Other Encounters Encounter Date Encounter Type Care Provider Facility Start: 02-28-2024 End: 02-28-2024 Admission to establishment [facility] 2 Work Phone: Pre Anesthesia Start: 02-28-2024 End: 02-28-2024 Patient encounter procedure Pacc 2 Work Phone: Pre Anesthesia Comment on above: Preoperative examina tion (Primary Dx); BRBPR (bright red blood per rectum); Rectal prolapse; Tachycardia; Hypothyroidism, unspecified type; Osteoarthritis of both hands, unspecified osteoarthritis type; Hyperlipidemia, unspecified hyperlipidemia type; Neuropathy of both feet; Irritable bowel syndrome with diarrhea; Urinary tract infection without hematuria, site unspecified Start: 02-28-2024 End: 02-28-2024 Preprocedural examination done Pacc 2 Work Phone: [facility] Work Phone: Start: 02-28-2024 End: 02-28-2024 ambulatory ZAIDA SORIANO Facility:[facility] Start: 02-28-2024 Encounter for other preprocedural examination FUNMILAYO ODELL [facility] Start: 02-23-2024 End: 02-23-[facility] Start: 02-23-2024 End: 02-23-2024 Patient encounter procedure Funmilayo Odell MD Work Phone: Colorectal Surgery Comment on above: Hemorrhoids, unspeci fied hemorrhoid type (Primary Dx) Start: 11-03-2023 End: 11-03-2023 ambulatory [facility] Facility:[facility] Start: 11-03-2023 End: 11-03-2023 Patient encounter procedure Funmilayo Odell MD Work Phone: Colorectal Surgery Comment on above: BRBPR (bright red bl ood per rectum) (Primary Dx); Hemorrhoids, unspecified hemorrhoid type; Pelvic floor dysfunction Start: 10-11-2023 Telephone encounter Funmilayo arizmendi MD Work Phone: Colorectal Surgery Comment on above: Received Outside [facility] Records; Appointment Start: 04-10-2023 End: 04-10-2023 ambulatory Manoj Forbes Other [facility] Other Start: 04-10-2023 Telephone encounter Manoj MCNEIL [facility] Start: 01-04-2023 End: 01-04-2023 ambulatory Ivette Taylor Other [facility] Other Start: 01-04-2023 Office outpatient vi sit 15 minutes [facility] Start: 12-23-2022 End: 12-23-2022 ambulatory Sydney Erickson II Facility:[facility] Start: 12-23-2022 End: 12-23-2022 ambulatory MD Gisella Porter Work Phone: [facility] Work Phone: Start: 12-23-2022 End: 12-23-2022 Patient encounter procedure MD Gisella Porter Work Phone: [facility] Start: 12-07-2022 Office outpatient ne w 30 minutes [facility] Start: 12-07-2022 End: 12-07-2022 ambulatory Gisella Porter Facility:[facility] Start: 12-07-2022 End: 12-07-2022 ambulatory MD Gisella Porter Work Phone: [facility] Work Phone: Start: 12-07-2022 End: 12-07-2022 Patient encounter procedure MD Gisella Porter Work Phone: [facility] Start: 10-27-2022 End: 10-27-2022 Patient encounter procedure Funmilayo Odell MD Work Phone: Colorectal Surgery Comment on above: Hemorrhoids, unspeci fied hemorrhoid type (Primary Dx) Start: 09-22-2022 End: 09-22-2022 ambulatory Manoj Forbes Other [facility] Other Start: 09-22-2022 Telephone encounter Manoj MCNEIL G [facility] Start: 09-21-2022 End: 09-21-2022 ambulatory Manoj Forbes Facility:[facility] Start: 09-21-2022 End: 09-21-2022 Admission to same day surgery center MD Gisella Porter Work Phone: [facility] Work Phone: Start: 09-21-2022 End: 09-21-2022 ambulatory MD Gisella Porter Work Phone: [facility] Work Phone: Start: 08-23-2022 End: 08-24-[address] DOCTOR MAHARAJ Facility:[facility] Start: 08-04-2022 End: 08-04-2022 ambulatory Manoj Forbes Other [facility] Other Start: 08-04-2022 Telephone encounter Manoj Hooper [facility] Start: 07-06-2022 End: 07-07-[address] GISELLA PORTER . Facility:[facility] Start: 06-06-2022 End: 06-07-[address] GISELLA PORTER . Facility:[facility] Start: 05-11-2022 End: 05-12-[address] GISELLA PORTER . Facility:[facility] Start: 04-04-2022 End: 04-04-2022 ambulatory Manoj Forbes Other [facility] Other Start: 04-04-2022 Telephone encounter Manoj MCNEIL G G[facility] Start: 03-16-2022 End: 03-16-2022 ambulatory Sydney M [place] II Facility:[facility] Start: 03-16-2022 End: 03-16-2022 Patient encounter procedure MD Gisella Porter Work Phone: [facility] Start: 02-23-2022 End: 02-23-2022 ambulatory Sydney M [place] II Facility:[facility] Start: 02-23-2022 End: 02-23-2022 Discharged Recurring MD Gisella Porter Work Phone: [facility] Start: 02-21-2022 End: 02-22-[address] LITA HANSEN Facility: Start: 02-02-2022 (Post-Op) Post-Op Sydney Darek II [facility] Start: 02-02-2022 End: 02-02-2022 ambulatory Sydney M [place] II [facility] Other Start: 02-02-2022 End: 02-02-2022 Patient encounter procedure MD Gisella Porter Work Phone: [facility] Start: 01-05-2022 (Post-Op) Post-Op Sydney Darek II [facility] Start: 01-05-2022 End: 01-05-2022 ambulatory Sydney Darek II Other [facility] Other Start: 12-20-2021 End: 12-20-2021 Admission to same day surgery center MD Gisella Porter Work Phone: [facility] [place] Start: 12-17-2021 End: 12-17-2021 Patient encounter procedure MD Gisella Pruitt Phone: [facility] Start: 12-10-2021 (Prolonged) Prolonge d Services Sydney [place] II [facility] Start: 12-10-2021 End: 12-10-2021 ambulatory Sydney Darek II Other [facility] Other Start: 12-10-2021 Telephone encounter Sydney [place] II [facility] Start: 12-07-2021 End: 12-07-2021 Patient encounter procedure MD Gisella Porter Work Phone: [facility] Start: 12-01-2021 End: 12-01-2021 ambulatory Sydney [place] II Other [facility] Other Start: 12-01-2021 Patient encounter procedure Sydney [place] II [facility] Start: 11-18-2021 Encounter for preprocedural cardiovascular examination SYDNEY ERICKSON [facility] Start: 11-12-2021 End: 11-13-2021 ambulatory SYDNEY DAREK Facility:[facility] Start: 11-12-2021 End: 11-13-2021 Encounter for preprocedural cardiovascular examination SYDNEY DAREK Facility:[facility] Start: 11-10-2021 End: 11-10-2021 ambulatory Sydney [place] II Other [facility] Other Start: 11-10-2021 Office outpatient vi sit 40 minutes Sydney [place] II [facility] Start: 09-01-2021 End: 09-02-[address] DOCTOR MAHARAJ Facility:[facility] Start: 08-13-2021 End: 08-13-2021 ambulatory Sydney [place] II Other [facility] Other Start: 08-13-2021 Office outpatient ne w 45 minutes Sydney Leroyisle II [facility] Start: 04-20-2021 Patient encounter procedure Manoj Forbes [facility] Procedures Date Procedure Procedure Detail Performing Clinician Start: 02-28-2024 Ecg routine ecg w/le ast 12 lds i&r only Zaida Soriano PA-C Work Phone: Start: 12-23-2022 X-ray of right knee MD [...] History of operative procedure on knee Manoj Armstrongrosa Other Plan of Treatment Date Care Activity Detail Author Start: 02-27-2027 Diabetes Screening Diabetes Screenin miguelito [facility] Start: 03-19-2024 End: 03-19-2024 Admission to same day surgery center 03/19/2024 7:30 AM EDT - 03/19/2024 8:40 AM EDT Surgery [facility] Surgery [address] [place] [address] [place] [id number] [place] [address] EXCISION RECTAL PROCIDENTIA W/ ANASTOMOSIS [facility] Surgery Comment on above: EXCISION RECTAL PROC IDENTIA W/ ANASTOMOSIS Start: 03-19-2024 End: 03-19-2024 Colonoscopy flx dx w/collj spec when pfrmd COLONOSCOPY BRBPR (bright red blood per rectum) Rectal prolapse 03/19/2024 7:30 AM EDT [facility] Start: 03-19-2024 End: 03-19-2024 Exc rct procidentia w/anast perineal approach EXCISION RECTAL PROCIDENTIA W/ ANASTOMOSIS BRBPR (bright red blood per rectum) Rectal prolapse 03/19/2024 7:30 AM EDT [facility] Start: 03-19-2024 Subsequent hospital visit by physician 03/19/2024 7:30 AM EDT Hospital Encounter [facility] Surgery [address] [place] [address] [place] [address] [place] [address] BRBPR (bright red blood per rectum) [K62.5] [facility] Surgery Comment on above: BRBPR (bright red bl ood per rectum) [K62.5] Start: 02-25-2024 Covid-19 Vaccine () Covid-19 Vaccine () [facility] Start: 02-25-2024 Influenza vaccination C [facility] Start: 06-26-2023 Advance Directive Discussion Advance Directive Discussion [facility] Start: 06-26-2023 Behavioral Health Screening Behavioral Health Screening [facility] Start: 02-24-2023 Covid-19 Vaccine ( season) Covid-19 Vaccine ( season) [facility] Start: 02-24-2023 Influenza vaccination INFLUENZ A (Season Ended) [facility] Start: 09-21-2022 [facility] Start: 06-26-2022 ADVANCE DIRECTIVE DISCUSSION ADVANCE DIRECTIVE DISCUSSION [facility] Start: 06-26-2022 DEPRESSION ASSESSMENT DEPRESSION ASS ESSMENT [facility] Start: 12-20-2021 [facility] Work Phone: Start: 12-20-2021 [facility] Work Phone: Start: 06-16-2021 COVID-19 VACCINE (4 - Booster for Moderna series) COVID-19 VACCINE (4 - Booster for Moderna series) [facility] Start: 2010 BONE DENSITY BONE DENSITY [facility] Start: 2010 PNEUMOCOCCAL: 65+ (1 - PCV) PNEUMOCOCCAL: 65+ (1 - PCV) [facility] Start: 2010 Screening for osteoporosis Bone Density Screening [facility] Start: 2005 RSV Vaccine (1 - 1-d ose 60+ series) RSV Vaccine (1 - 1-dose 60+ series) [facility] Start: 1995 SHINGRIX VACCINE (1 of 2) SHINGRIX VACCINE (1 of 2) [facility] Start: 1990 DIABETES SCREEN DIABETES SCREEN [facility] Start: 1990 Diabetes Screening Diabetes Screenin g [facility] Start: 1964 Urine microalbumin profile [facility] Start: 1963 Annual PCP Team Shared Services And 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 Manager sudha Disease Visit Annual PCP Team Chronic Disease Visit [facility] Start: 1963 Anxiety Screening Anxiety Screening [facility] Start: 1963 Depression Screening Depression Scre ening [facility] Start: 1963 HEPATITIS C SCREENING HEPATITIS C [facility] Start: 1963 Hepatitis C screening Hepatitis C [facility] ECG COMPLETE ECG COMPLETE ECG Routine Preoperative examination Tachycardia 02/28/2024 1:49 PM EDT [facility] Work Phone: Patient Education Hemorrhoids (DC) [facility] Work Phone: [facility] Immunizations Immunization Date Immunization Notes Care Provider Fa cilikathryn 04-16-2021 COVID-19 mRNA-1273 (Moderna) MD Gisella Porter Work Phone: [facility] 09-01-2020 COVID-19 mRNA-1273 (Moderna) MD Gisella Porter Work Phone: [facility] 08-03-2020 COVID-19 mRNA-1273 (Nimo) MD Gisella Porter Work Phone: [facility] 04-02-2020 influenza virus vaccine, unspecified formulation Funmilayo Odell MD Work Phone: [facility] Payers Date Payer Category Payer Private Health Insurance [facility] AARP SUPPLEMENT [id number] 2022-Present [phone] [address] [place] [address] Indemnity [id number] 2021 Self-pay [id number] 2010 Medicare MEDICARE MEDICAR E A AND B [id number] 2010-Present [phone] [place] [address] Medicare [id number] 1959 Medicare [id number] 1959 Unknown [id number] 1945 Unknown [id number] .593 1945 Unknown [id number] [id number] .593 1945 Unknown [id number] [id number] .593 1945 Unknown [id number] [id number] .593 1945 Unknown [id number] [id number] .593 1945 Unknown [id number] 2.16.840.1.200098.3.579.2 .593 1945 Unknown [id number] [id number] .593 Unknown [id number] [id number] .531 Unknown [id number] [id number] .531 Unknown [id number] [id number] .531 Unknown [id number] [id number] .531 Unknown [id number] [id number] .531 Unknown [id number] .531 Social History Date Type Detail Facility Unknown if ever smoked [facility] Other Start: 10-27-2022 End: 02-28-2024 Sex Assigned At [facility] Other Start: 12-20-2021 End: 10-27-2022 Tobacco smoking status NHIS Never smoked tobacco (finding) [facility] Start: 1945 Sex Assigned At Female [facility] Start: 10-27-2022 Tobacco use and exposure Smokeless tobacco non-user [facility] Start: 10-27-2022 End: 02-28-2024 Alcohol intake Lifetime non-drinker (finding) [facility] Start: 1945 Sex Assigned At Not on file [facility] Start: 10-27-2022 End: 02-28-2024 History of Social function [facility] National Score (1-10 0), lower number is lower risk 53 [facility] Start: 02-27-2024 Gender identity Identifies as female gender (finding) [facility] Start: 02-27-2024 Sexual orientation Heterosexual (finding) [facility] Medical Equipment Procedure Code Equipment Code Equipment Origin al Text Equipment Identifier Dates Arthroplasty, knee, total, minimally invasive Orthopaedic cement, non-medicated ()[id number] FDA Start: 12-20-2021 Arthroplasty, knee, total, minimally invasive Uncoated knee femur prosthesis ()[id number] FDA Start: 12-20-2021 Arthroplasty, knee, total, minimally invasive Tibial insert ()[id number] FDA Start: 12-20-2021 Arthroplasty, knee, total, minimally invasive Uncoated knee tibia prosthesis, metallic ()[id number] FDA Start: 12-20-2021 Arthroplasty, knee, total, minimally invasive Polyethylene patella prosthesis ()[id number] FDA Start: 12-20-2021 Goals Date Patient Goal Desired Activity /State Clinical Notes 04-20-2021 to 02-28-2024 Zaida Soriano PA-C - 02/28/2024 2:26 PM EDTAZaida flores PA-C - 02/28/2024 2:26 PM EDTPatient Funmilayo Hobbs MD - 02/23/2024 2:40 PM EDFunmilayo Oliver MD - 11/03/2023 2:40 PM EDT Note Date & Type Note Facility 02-28-2024 History and physical note Images from the original note were not included. [facility] HISTORY AND PHYSICAL EXAMINATION SERVICE DATE: 02/28/2024 SERVICE TIME: 2:26 PM PRIMARY CARE PHYSICIAN: Gisella Porter MD Assessment 1. Preoperative examination Scheduled for surgery 03/19/2024 2. BRBPR (bright red blood per rectum) 3. Rectal prolapse See HPI, having surgery 4. Tachycardia HR averaging around 118-120 during our visit. Patient denies any cardiac symptoms. No palpitations or CP. EKG today shows sinus tachycardia with HR 113 bpm, also shows possible anterolateral infarct. Patient has never had a prior EKG at [facility] before, but has at either [place] or [facility]. Faxing for records for comparison. Checking CBC, CMP, TSH, T4 labs. - Electrolytes and CBC are WNL. - TSH is low and T4 elevated, showing that her Levothyroxine dose of 112 mcg needs to be adjusted. Called and spoke with patient on phone 02/29/2024, reviewed her labs and that her levothyroxine dose is too high. Confirmed that her PCP, Dr. Gisella Porter is managing this. Will fax letter to Dr. Porter with results. Received old EKG done 2013 which showed poor wave progression and low QRS voltages in precordial leads, appears similar to EKG done today. Will review with anesthesia. 5. Hypothyroidism, unspecified type Compliant on daily levothyroxine. Updating thyroid labs today due to tachycardia - see above. 6. 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 On daily Etodolac and has Tramadol for use PRN 7. Hyperlipidemia, unspecified hyperlipidemia type Compliant on daily Crestor at bedtime. 8. Neuropathy of both feet Stable on amitriptyline at bedtime. 9. Irritable bowel syndrome with diarrhea See HPI, having colonoscopy 10. Urinary tract infection without hematuria, site unspecified Diagnosed 02/20/24 and started 10 day course of Cefdinir, has 2 days left of treatment. Symptoms have resolved. [place] Activity Status Index: METS: Walk indoors, such as around the house (1.75 METs) Do light work around the house, such as dusting or washing dishes (2.70 METs) Take care of self; that is eating, dressing, bathing, using the toilet (2.75 METs) Walk a block or two on level ground (2.75 METs) Do moderate work around the house, such as vacuuming, sweeping floors, or carrying in groceries (3.50 METs) Climb a flight of stairs or walk up a hill (5.50 METs) DASI Score: 18.95 (House work, stairs ) Patient denies any chest pain or undue shortness of breath with the above physical activity. Clinical Frailty Scale: 4. Apparently vulnerable STOP-Bang Score: Patient over 50 years old BMI less than or equal to 35 kg/m^2 Non-male patient STOP-Bang Score: 1 [id number] Score: [id number] Score: 0 ANESTHESIA FINDINGS: Intubation History: No history of difficult intubation Significant Anesthesia Considerations: none Airway History: No history of difficult airway I - PHYSICAL EVALUATION AIRWAY Patient intubated: No. Tracheostomy tube not present Mallampati: II. TM distance: >3 FB. Neck ROM: limited extension. Mouth opening: adequate. Short neck: no. Thick neck: no Lip Bite Test: II DENTAL Dental findings: teeth intact. Additional comments: +Caps/Crowns . II - ANESTHESIA PLAN Beta Abimbola Monitoring Plan Post Procedure Analgesic Plan Prepared for Surgery: optimally prepared for surgery pending - Medical Optimization CONSULTS: PCP/Internal Medicine consult for medical optimization regarding abnormal thyroid labs. Letter faxed to Dr. Gisella Porter 02/29/2024 Anesthesia Consult for chart review and review of EKG done at [facility] Visit 02/28/24 and old EKG from 2013- Email sent to Dr. Moise 02/29/2024. Reviewed history and EKG's, appear similar with no acute ischemic changes. Nothing further required from cardiac standpoint for this surgery. Recommends that patient follow up with PCP after surgery to monitor this. Patient notified of this on the phone. Planned Anesthetic: other anesthesia choice The Following Tests/Procedures Have Been Initiated: PAT on 02/28/24 COMPLETE BLOOD COUNT COMPREHENSIVE METABOLIC PANEL THYROID STIMULATING HORMONE T4 FREE/FREE THYROXINE Etodolac 500 mg tablet traMADol (ULTRAM) 50 mg tablet ECG COMPLETE Faxed release to [facility] 02/28/2024 for Last EKG, need for comparison. - Received EKG's done : 11/12/21 - Sinus tachycardia 100 bpm, low QRS voltage 10/22/13 - SR with poor wave progression and low QRS voltages in precordial leads. REASON FOR VISIT: Blilie Yeboah is a 78 year old female who is scheduled for EXCISION RECTAL PROCIDENTIA W/ ANASTOMOSIS COLONOSCOPY at the request of Dr. Funmilayo Odell for consultation. My final recommendation will be communicated back to the requesting physician by way of shared medical record or letter. Subjective The patient has the following: ACTIVE PROBLEM LIST Brbpr (Bright Red Blood Per Rectum) Rectal Prolapse Tachycardia Hypothyroidism Osteoarthritis of Both Hands Hyperlipidemia Neuropathy of Both Feet Irritable Bowel Syndrome With Diarrhea Covid Immunization Dates Overdue - Covid-19 Vaccine () Overdue since 02/25/2024 04/21/2021 Imm Admin: COVID-19 original vaccine, full dose, monovalent (MODERNA) 09/01/2020 Imm Admin: COVID-19 original vaccine, full dose, monovalent (MODERNA) 08/03/2020 Imm Admin: COVID-19 original vaccine, full dose, monovalent (MODERNA) CHIEF COMPLAINT: Rectal bleeding HPI: Patient is a 78 year old female presenting for pre-anesthesia consultation. Patient has had issues with Hemorrhoids for 40 years intermittently. She began having some rectal bleeding with BM's over a year ago. Denies any pain with bowel movements. She also gets some brown sludgy mucus with bowel movements. She has history of IBS and she is on daily Bentyl for this which helps control symptoms. She has occasional constipation but denies any diarrhea. Denies any issues with nausea, vomiting, acid reflux, abdominal pain. Has been diagnosed with a rectal prolapse. Patient has been recommended for above surgery. REVIEW OF SYSTEMS: PAIN ASSESSMENT: General: No weight loss, malaise or fevers. Neuro: No history of TIA's, stroke, SHAREPOINT ADMIN tumor, impaired sensorium, hemiplegia, paraplegia or quadraplegia. No neurological symptoms or problems. +Feet neuropathy - on Elavil PM Respiratory: No history of current cough or dyspnea, or pneumonia in the past 6 weeks. No history of respiratory/pulmonary symptoms or problems. Cardiovascular: Negative for Arrhythmia, CAD, Chest Pain, CHF, HTN, PVD, Valvular Heart Disease, DVT/PE +HLD GI: See HPI : No history of dysuria, frequency or incontinence,, stones or chronic kidney disease Endocrine: Hypothyroidism - Levothyroxine Denies any history of other endocrine symptoms/problems. Hematology: No history of bleeding or clotting disorder. Pt is not taking anti-coagulation or platelet medications. No history of hematological symptoms or problems. Oncology: No history of CA metastasis, chemo within 30 days, or radiotherapy within 90 days. Has not lost 10% of body wt in 6 months. No history of oncological symptoms or problems. Skin: Negative for lesions, rash and itching. Musculoskeletal: Joint pain in hands Psych: No history of psychiatric symptoms or problems. History reviewed. No pertinent past medical history. PAST SURGICAL HISTORY No date: COLONOSCOPY SCREENING No date: FOOT SURGERY HX; Bilateral Comment: for neuroma's. unsure of year 1998: HYSTERECTOMY HX 1968: THYROID SURGERY HX Comment: partial thyroidectomy for nodule 2014: TOTAL HIP REPLACEMENT; Right 2005: TOTAL KNEE REPLACEMENT; Left 2021: TOTAL KNEE REPLACEMENT; Right FAMILY HISTORY Problem Relation Age of Onset Alzheimer's Disease Mother Heart Father age 80's Social History Tobacco Use Smoking status: Never Smokeless tobacco: Never Substance Use Topics Alcohol use: Never Drug use: Never MEDICATIONS: Prior to Admission medications as of 02/28/24 1439 Medication Sig Last Dose Taking Etodolac 500 mg tablet Etodolac Active 500 MG PO Twice daily April 29, 2021 12:00am Taking Yes traMADol (ULTRAM) 50 mg tablet as needed for pain. Taking Differently Yes amitriptyline (ELAVIL) 50 mg tablet Take 50 mg by mouth once daily. Taking Yes levothyroxine (SYNTHROID) 112 mcg tablet Take 112 mcg by mouth once daily. Taking Yes dicyclomine (BENTYL) 20 mg tablet Take 20 mg by mouth twice daily. Taking Yes rosuvastatin (CRESTOR) 5 mg tablet Take 5 mg by mouth once daily. Taking Yes cholecalciferol (VITAMIN D3) 5,000 unit tab Take 5,000 Units by mouth once daily. Taking Yes No medication comments found. CURRENT ALLERGIES: ALLERGIES Allergen Reactions Ciprofloxacin Rash, Unknown Nitrofurantoin [place]* Other: See Comments, GI Upset Sulfamethoxazole-Tr* Other: See Comments, Rash Objective PHYSICAL EXAM: VITALS: BP 140/82 Pulse 120 Temp (Src) 97.7 (Temporal) Resp 18 Ht 5' 6 (1.68m) Wt 147 lb 4.3 oz (66.8kg) SpO2 97% BMI 23.78 kg/(m^2). General: Alert and oriented, No acute distress, Healthy appearance Skin: Normal color, no rash, no lesions. HEENT: EOM, pupils equal, round and reactive. Cardiovascular: Normal S1 & S2, no rubs, murmurs or gallops. No JVD. Pulse regular. +Tachycardia Lungs: Normal breath sounds, no wheezes or crackles. Abdomen: Soft, non-distended Extremities: No edema or tenderness, no joint swelling or clubbing. Neurological: Normal cognition and motor skills. Pulses: Carotid and radial pulses normal +2. Diagnostic tests reviewed for today's visit: Lab Value Units Date High Low HB 13.6 g/dL 02/28/2024 15.5 11.5 HCT 42.4 % 02/28/2024 46.0 36.0 WBC 6.15 k/uL 02/28/2024 11.00 3.70 PLT 352 k/uL 02/28/2024 400 150 NA 141 mmol/L 02/28/2024 144 136 K 4.4 mmol/L 02/28/2024 5.1 3.7 GLUC 107 mg/dL 02/28/2024 99 74 BUN 11 mg/dL 02/28/2024 21 7 CREAT 0.81 mg/dL 02/28/2024 0.96 0.58 PTSEC No results within date range. INR No results within date range. APTT No results within date range. ALT 14 U/L 02/28/2024 38 7 AST 18 U/L 02/28/2024 35 13 TBILI 0.5 mg/dL 02/28/2024 1.3 0.2 TSH 0.120 mIU/L 02/28/2024 4.200 0.270 TSH Date Value Ref Range Status 02/28/2024 0.120 (L) 0.270 - 4.200 mIU/L Final Free T4 Date Value Ref Range Status 02/28/2024 1.9 (H) 0.9 - 1.7 ng/dL Final EKG Completed Today, 02/28/2024 (Preliminary reading Below - will addend if final reading is different from preliminary reading) Sinus tachycardia 113 bpm ESCOBAR LAFB Possible anterolateral infarct Instructions Given to Patient: Instructions located in the after visit summary. Patient given verbal and written preop instructions and voices comprehension and compliance. SIGNATURE: Zaida Soriano PA-C PATIENT NAME: Billie Yeboah DATE: 02/28/2024 TIME: 2:26 PM PAGER/CONTACT #: [facility] 02-28-2024 History and physical note Images from the original note were not included. [facility] HISTORY AND PHYSICAL EXAMINATION SERVICE DATE: 02/28/2024 SERVICE TIME: 2:26 PM PRIMARY CARE PHYSICIAN: Gisella Porter MD Assessment 1. Preoperative examination Scheduled for surgery 03/19/2024 2. BRBPR (bright red blood per rectum) 3. Rectal prolapse See HPI, having surgery 4. Tachycardia HR averaging around 118-120 during our visit. Patient denies any cardiac symptoms. No palpitations or CP. EKG today shows sinus tachycardia with HR 113 bpm, also shows possible anterolateral infarct. Patient has never had a prior EKG at [facility] before, but has at either [place] or [facility]. Faxing for records for comparison. Checking CBC, CMP, TSH, T4 labs. - Electrolytes and CBC are WNL. - TSH is low and T4 elevated, showing that her Levothyroxine dose of 112 mcg needs to be adjusted. Called and spoke with patient on phone 02/29/2024, reviewed her labs and that her levothyroxine dose is too high. Confirmed that her PCP, Dr. Gisella Porter is managing this. Will fax letter to Dr. Porter with results. Received old EKG done 2013 which showed poor wave progression and low QRS voltages in precordial leads, appears similar to EKG done today. Will review with anesthesia. 5. Hypothyroidism, unspecified type Compliant on daily levothyroxine. Updating thyroid labs today due to tachycardia - see above. 6. 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 On daily Etodolac and has Tramadol for use PRN 7. Hyperlipidemia, unspecified hyperlipidemia type Compliant on daily Crestor at bedtime. 8. Neuropathy of both feet Stable on amitriptyline at bedtime. 9. Irritable bowel syndrome with diarrhea See HPI, having colonoscopy 10. Urinary tract infection without hematuria, site unspecified Diagnosed 02/20/24 and started 10 day course of Cefdinir, has 2 days left of treatment. Symptoms have resolved. [place] Activity Status Index: METS: Walk indoors, such as around the house (1.75 METs) Do light work around the house, such as dusting or washing dishes (2.70 METs) Take care of self; that is eating, dressing, bathing, using the toilet (2.75 METs) Walk a block or two on level ground (2.75 METs) Do moderate work around the house, such as vacuuming, sweeping floors, or carrying in groceries (3.50 METs) Climb a flight of stairs or walk up a hill (5.50 METs) DASI Score: 18.95 (House work, stairs ) Patient denies any chest pain or undue shortness of breath with the above physical activity. Clinical Frailty Scale: 4. Apparently vulnerable STOP-Bang Score: Patient over 50 years old BMI less than or equal to 35 kg/m^2 Non-male patient STOP-Bang Score: 1 [id number] Score: [id number] Score: 0 ANESTHESIA FINDINGS: Intubation History: No history of difficult intubation Significant Anesthesia Considerations: none Airway History: No history of difficult airway I - PHYSICAL EVALUATION AIRWAY Patient intubated: No. Tracheostomy tube not present Mallampati: II. TM distance: >3 FB. Neck ROM: limited extension. Mouth opening: adequate. Short neck: no. Thick neck: no Lip Bite Test: II DENTAL Dental findings: teeth intact. Additional comments: +Caps/Crowns . II - ANESTHESIA PLAN Beta Ab[place]ola Monitoring Plan Post Procedure Analgesic Plan Prepared for Surgery: optimally prepared for surgery pending - Medical Optimization CONSULTS: PCP/Internal Medicine consult for medical optimization regarding abnormal thyroid labs. Letter faxed to Dr. Gisella Porter 02/29/2024 Anesthesia Consult for chart review and review of EKG done at [facility] Visit 02/28/24 and old EKG from 2013- Email sent to Dr. Moise 02/29/2024. Reviewed history and EKG's, appear similar with no acute ischemic changes. Nothing further required from cardiac standpoint for this surgery. Recommends that patient follow up with PCP after surgery to monitor this. Patient notified of this on the phone. Planned Anesthetic: other anesthesia choice The Following Tests/Procedures Have Been Initiated: PAT on 02/28/24 COMPLETE BLOOD COUNT COMPREHENSIVE METABOLIC PANEL THYROID STIMULATING HORMONE T4 FREE/FREE THYROXINE Etodolac 500 mg tablet traMADol (ULTRAM) 50 mg tablet ECG COMPLETE Faxed release to [facility] 02/28/2024 for Last EKG, need for comparison. - Received EKG's done : 11/12/21 - Sinus tachycardia 100 bpm, low QRS voltage 10/22/13 - SR with poor wave progression and low QRS voltages in precordial leads. REASON FOR VISIT: Billie Yeboah is a 78 year old female who is scheduled for EXCISION RECTAL PROCIDENTIA W/ ANASTOMOSIS COLONOSCOPY at the request of Dr. Funmilayo Odell for consultation. My final recommendation will be communicated back to the requesting physician by way of shared medical record or letter. Subjective The patient has the following: ACTIVE PROBLEM LIST Brbpr (Bright Red Blood Per Rectum) Rectal Prolapse Tachycardia Hypothyroidism Osteoarthritis of Both Hands Hyperlipidemia Neuropathy of Both Feet Irritable Bowel Syndrome With Diarrhea Covid Immunization Dates Overdue - Covid-19 Vaccine ( season) Overdue since 02/25/2024 04/21/2021 Imm Admin: COVID-19 original vaccine, full dose, monovalent (MODERNA) 09/01/2020 Imm Admin: COVID-19 original vaccine, full dose, monovalent (MODERNA) 08/03/2020 Imm Admin: COVID-19 original vaccine, full dose, monovalent (MODERNA) CHIEF COMPLAINT: Rectal bleeding HPI: Patient is a 78 year old female presenting for pre-anesthesia consultation. Patient has had issues with Hemorrhoids for 40 years intermittently. She began having some rectal bleeding with BM's over a year ago. Denies any pain with bowel movements. She also gets some brown sludgy mucus with bowel movements. She has history of IBS and she is on daily Bentyl for this which helps control symptoms. She has occasional constipation but denies any diarrhea. Denies any issues with nausea, vomiting, acid reflux, abdominal pain. Has been diagnosed with a rectal prolapse. Patient has been recommended for above surgery. REVIEW OF SYSTEMS: PAIN ASSESSMENT: General: No weight loss, malaise or fevers. Neuro: No history of TIA's, stroke, SHAREPOINT ADMIN tumor, impaired sensorium, hemiplegia, paraplegia or quadraplegia. No neurological symptoms or problems. +Feet neuropathy - on Elavil PM Respiratory: No history of current cough or dyspnea, or pneumonia in the past 6 weeks. No history of respiratory/pulmonary symptoms or problems. Cardiovascular: Negative for Arrhythmia, CAD, Chest Pain, CHF, HTN, PVD, Valvular Heart Disease, DVT/PE +HLD GI: See HPI : No history of dysuria, frequency or incontinence,, stones or chronic kidney disease Endocrine: Hypothyroidism - Levothyroxine Denies any history of other endocrine symptoms/problems. Hematology: No history of bleeding or clotting disorder. Pt is not taking anti-coagulation or platelet medications. No history of hematological symptoms or problems. Oncology: No history of CA metastasis, chemo within 30 days, or radiotherapy within 90 days. Has not lost 10% of body wt in 6 months. No history of oncological symptoms or problems. Skin: Negative for lesions, rash and itching. Musculoskeletal: Joint pain in hands Psych: No history of psychiatric symptoms or problems. History reviewed. No pertinent past medical history. PAST SURGICAL HISTORY No date: COLONOSCOPY SCREENING No date: FOOT SURGERY HX; Bilateral Comment: for neuroma's. unsure of year 1997: HYSTERECTOMY HX 1967: THYROID SURGERY HX Comment: partial thyroidectomy for nodule 2014: TOTAL HIP REPLACEMENT; Right 2006: TOTAL KNEE REPLACEMENT; Left 2021: TOTAL KNEE REPLACEMENT; Right FAMILY HISTORY Problem Relation Age of Onset Alzheimer's Disease Mother Heart Father age 80's Social History Tobacco Use Smoking status: Never Smokeless tobacco: Never Substance Use Topics Alcohol use: Never Drug use: Never MEDICATIONS: Prior to Admission medications as of 02/28/24 1439 Medication Sig Last Dose Taking Etodolac 500 mg tablet Etodolac Active 500 MG PO Twice daily April 29, 2021 12:00am Taking Yes traMADol (ULTRAM) 50 mg tablet as needed for pain. Taking Differently Yes amitriptyline (ELAVIL) 50 mg tablet Take 50 mg by mouth once daily. Taking Yes levothyroxine (SYNTHROID) 112 mcg tablet Take 112 mcg by mouth once daily. Taking Yes dicyclomine (BENTYL) 20 mg tablet Take 20 mg by mouth twice daily. Taking Yes rosuvastatin (CRESTOR) 5 mg tablet Take 5 mg by mouth once daily. Taking Yes cholecalciferol (VITAMIN D3) 5,000 unit tab Take 5,000 Units by mouth once daily. Taking Yes No medication comments found. CURRENT ALLERGIES: ALLERGIES Allergen Reactions Ciprofloxacin Rash, Unknown Nitrofurantoin [place]* Other: See Comments, GI Upset Sulfamethoxazole-Tr* Other: See Comments, Rash Objective PHYSICAL EXAM: VITALS: BP 140/82 Pulse 120 Temp (Src) 97.7 (Temporal) Resp 18 Ht 5' 6 (1.68m) Wt 147 lb 4.3 oz (66.8kg) SpO2 97% BMI 23.78 kg/(m^2). General: Alert and oriented, No acute distress, Healthy appearance Skin: Normal color, no rash, no lesions. HEENT: EOM, pupils equal, round and reactive. Cardiovascular: Normal S1 & S2, no rubs, murmurs or gallops. No JVD. Pulse regular. +Tachycardia Lungs: Normal breath sounds, no wheezes or crackles. Abdomen: Soft, non-distended Extremities: No edema or tenderness, no joint swelling or clubbing. Neurological: Normal cognition and motor skills. Pulses: Carotid and radial pulses normal +2. Diagnostic tests reviewed for today's visit: Lab Value Units Date High Low HB 13.6 g/dL 02/28/2024 15.5 11.5 HCT 42.4 % 02/28/2024 46.0 36.0 WBC 6.15 k/uL 02/28/2024 11.00 3.70 PLT 352 k/uL 02/28/2024 400 150 NA 141 mmol/L 02/28/2024 144 136 K 4.4 mmol/L 02/28/2024 5.1 3.7 GLUC 107 mg/dL 02/28/2024 99 74 BUN 11 mg/dL 02/28/2024 21 7 CREAT 0.81 mg/dL 02/28/2024 0.96 0.58 PTSEC No results within date range. INR No results within date range. APTT No results within date range. ALT 14 U/L 02/28/2024 38 7 AST 18 U/L 02/28/2024 35 13 TBILI 0.5 mg/dL 02/28/2024 1.3 0.2 TSH 0.120 mIU/L 02/28/2024 4.200 0.270 TSH Date Value Ref Range Status 02/28/2024 0.120 (L) 0.270 - 4.200 mIU/L Final Free T4 Date Value Ref Range Status 02/28/2024 1.9 (H) 0.9 - 1.7 ng/dL Final EKG Completed Today, 02/28/2024 (Preliminary reading Below - will addend if final reading is different from preliminary reading) Sinus tachycardia 113 bpm ESCOBAR LAFB Possible anterolateral infarct Instructions Given to Patient: Instructions located in the after visit summary. Patient given verbal and written preop instructions and voices comprehension and compliance. SIGNATURE: Zaida Soriano PA-C PATIENT NAME: Billie Yeboah DATE: 02/28/2024 TIME: 2:26 PM PAGER/CONTACT #: documented in this encounter [facility] 02-27-2024 Instructions Zaida Soriano PA-C - 02/27/2024 12:07 PM EDT Images from the original note were not included. [facility] PATIENT PREOPERATIVE INSTRUCTIONS Testing that needs completed prior to surgery: - Lab work ordered today, recommend completing today at Outpatient Lab Funmilayo Odell MD has scheduled you for your procedure at this surgery center: [facility]: [phone] --[id number] [place] [address]. Please enter through the entrance closest to [facility]. Please read below carefully for your personalized instructions. Arrival Time for Surgery: - The Surgery Center or hospital where you are having surgery will call the afternoon before surgery (or Monday for Monday surgery) with a scheduled arrival time. - If you have not heard by 4 pm, please contact the surgery center above. Dietary Restrictions: - Follow bowel prep instructions: clear liquids need to be stopped 2 hours prior to schedule arrival at facility Clear liquids are: water, clear juices such as apple juice or gatorade, clear tea, black coffee Medications: Unless instructed differently below, stay on all of your medications until your surgery. - If you are prescribed inhalers for breathing, continue using them. Approved medications to take the morning of surgery with a sip of water: Levothyroxine (Synthroid) If you take any medications for erectile dysfunction-Cialis (Tadalafil), Levitra, Staxyn (Vardenafil), Viagra (Sildenenafil) please do not take these for 48 hours before surgery. If you start any new medications after today's visit, please contact the surgeon's office. Blood Thinning Medications: - Stop NSAIDS (Ibuprofen, Advil, Aleve, Motrin, Celebrex, Mobic, etc.) 7 days before surgery, as directed by your surgeon. - Stop Aspirin 7 days before surgery, as directed by your surgeon. - Stop Vitamin E, ALL multi-vitamins, herbals and dietary supplements 14 days before surgery. - You may take Tylenol (Acetaminophen) or any of your pain medications that do not contain aspirin or NSAIDS as needed. Important Reminders: - Candy, mints, and tobacco products are NOT permitted the morning of surgery. - Hearing aids and glasses may be worn the morning of surgery. You may wear dentures/partials on the morning of surgery, but you may be asked to remove them prior to the procedure. - NO jewelry, body piercings, makeup, hairpins or contacts are to be worn the day of surgery. If you develop symptoms such as a fever, cold, or flu, or have other changes to your health within TWO DAYS of scheduled surgery or the morning of surgery, please contact the surgery center above. Personal Belongings: -Please have photo ID and insurance cards. -If you do not have a copy of advance directives on file with us, please bring a copy with you on the day of surgery. - Leave ALL valuables and money at home or with family members. For Outpatient Procedures: - YOU MUST HAVE A RESPONSIBLE FARM GENERAL MANAGER TAKE YOU HOME. A SOFTWARE ENGINEERING SPECIALIST OR CORRECTIONAL OFFICER CANNOT BE MADE A RESPONSIBLE FARM GENERAL MANAGER. - We recommend that a responsible person stays with you overnight to take care of you. - You cannot stay in a hotel alone after outpatient surgery. You will not be permitted to have your surgery, if you do not have someone to take care of you. Please be aware that emergency situations arise, which may delay or change your surgical time. If this happens, we will notify you as soon as possible and regret any inconvenience. If you already have an Advance Directive, please fax a copy to [phone] or email to for it to be added to your chart. If you do not have an Advance Directive, you can find the appropriate form and more information at [email or web address]. We recommend that you complete the Advance Directive form found on the website and bring it with you the day of your surgery. It can be witnessed and scanned into your chart that day. Zaida Soriano PA-C documented in this encounter [facility] 02-23-2024 History of Presen t illness Narrative COLORECTAL SURGERY February 23, 2024 Billie Britofamarilee 78 year old Chief Complaint: hemorrhoids History of Present Illness: Billie Goodther is a 78 year old female presents today for follow up evaluation of hemorrhoids. She was last seen 11/03/23 for rectal bleeding and hemorrhoids. Rubber band ligation of large anterior internal hemorrhoid/mucosal prolapse x2 performed. Sigmoidoscopy 09/21/22 - Dr. Forbes Retroflexed views: There is small hypervascular appearing internal hemorrhoids extending down below the dentate line, comprising an external component as well. 78-year-old female with the above-stated history. She has had rubber band ligation twice and has not helped very much at all with her symptoms. She continues to have daily bleeding and discomfort. She is interested in further surgical intervention No past medical history on file. No past surgical history on file. Current Outpatient Medications Medication Sig Dispense Refill amitriptyline (ELAVIL) 50 mg tablet Take 50 mg by mouth once daily. levothyroxine (SYNTHROID) 112 mcg tablet Take 112 mcg by mouth once daily. dicyclomine (BENTYL) 20 mg tablet Take 20 mg by mouth twice daily. rosuvastatin (CRESTOR) 5 mg tablet Take 5 mg by mouth once daily. cholecalciferol (VITAMIN D3) 5,000 unit tab Take 5,000 Units by mouth once daily. No current facility-administered medications for this visit. ALLERGIES Allergen Reactions Ciprofloxacin Rash, Unknown Nitrofurantoin [place]* Other: See Comments, GI Upset Sulfamethoxazole-Tr* Other: See Comments, Rash No family history on file. Social History Tobacco Use Smoking status: Never Smokeless tobacco: Never Substance Use Topics Alcohol use: Never Drug use: Never Physical Exam: BP 134/83 (BP Site: Right Arm, BP Position: Sitting) Pulse 103 Temp 36.4 C (97.5 F) Ht 167.6 cm (5' 6 ) Wt 64.9 kg (143 lb) SpO2 94% BMI 23.08 kg/m General Appearance: Well appearing, alert, in no acute distress, well-hydrated, well nourished. Anorectal: External exam reveals no lesions. Digital rectal exam reveals no gross blood or masses Certified Nurse Midwife present: Yes, Sarah Z Anoscopy: The patient was placed in chest-knee position. After digital exam with a lubricated finger, the scope was easily inserted. Enlarged anterior prolapsing mucosa noted. Otherwise normal mucosa was noted. Anoscopy completed. Assessment Assessment and Plan: Billie Yeboah is a 78 year old female with persistent prolapsing anterior mucosa. Rubber band ligation has not solved this and she is interested in further surgical intervention. We will plan for concurrent colonoscopy and Delorme type procedure with excision of excess anterior rectal mucosal prolapse. Consent obtained Medical Decision Making: Data Reviewed: Tests & Documents Reviewed/ordered: Review of prior notes from ,yself Review of Labs: CBC, BMP Review of Procedures / Tests: Colonoscopy Risk of morbidity, mortality and/or complications of treatment plan: nyla Odell MD Colorectal Surgery documented in this encounter [facility] 02-23-2024 Note HNO ID: [id number] Author: FUNMILAYO ODELL MD Service: ? Author Type: Physician Type: Progress Notes Filed: 02/25/2024 21:51 Note Text: COLORECTAL SURGERY February 23, 2024 Billie Yeboah 78 year old Chief Complaint: hemorrhoids History of Present Illness: Billie Yeboah is a 78 year old female presents today for follow up evaluation of hemorrhoids. She was last seen 11/03/23 for rectal bleeding and hemorrhoids. Rubber band ligation of large anterior internal hemorrhoid/mucosal prolapse x2 performed. Sigmoidoscopy 09/21/22 - Dr. Forbes Retroflexed views: There is small hypervascular appearing internal hemorrhoids extending down below the dentate line, comprising an external component as well. 78-year-old female with the above-stated history. She has had rubber band ligation twice and has not helped very much at all with her symptoms. She continues to have daily bleeding and discomfort. She is interested in further surgical intervention No past medical history on file. No past surgical history on file. Current Outpatient Medications Medication Sig Dispense Refill amitriptyline (ELAVIL) 50 mg tablet Take 50 mg by mouth once daily. levothyroxine (SYNTHROID) 112 mcg tablet Take 112 mcg by mouth once daily. dicyclomine (BENTYL) 20 mg tablet Take 20 mg by mouth twice daily. rosuvastatin (CRESTOR) 5 mg tablet Take 5 mg by mouth once daily. cholecalciferol (VITAMIN D3) 5,000 unit tab Take 5,000 Units by mouth once daily. No current facility-administered medications for this visit. ALLERGIES Allergen Reactions Ciprofloxacin Rash, Unknown Nitrofurantoin [place]* Other: See Comments, GI Upset Sulfamethoxazole-Tr* Other: See Comments, Rash No family history on file. Social History Tobacco Use Smoking status: Never Smokeless tobacco: Never Substance Use Topics Alcohol use: Never Drug use: Never Physical Exam: BP 134/83 (BP Site: Right Arm, BP Position: Sitting) Pulse 103 Temp 36.4 ?C (97.5 ?F) Ht 167.6 cm (5' 6 ) Wt 64.9 kg (143 lb) SpO2 94% BMI 23.08 kg/m? General Appearance: Well appearing, alert, in no acute distress, well-hydrated, well nourished. Anorectal: External exam reveals no lesions. Digital rectal exam reveals no gross blood or masses Certified Nurse Midwife present: Yes, Sarah Z Anoscopy: The patient was placed in chest-knee position. After digital exam with a lubricated finger, the scope was easily inserted. Enlarged anterior prolapsing mucosa noted. Otherwise normal mucosa was noted. Anoscopy completed. Assessment Assessment and Plan: Billie Yeboah is a 78 year old female with persistent prolapsing anterior mucosa. Rubber band ligation has not solved this and she is interested in further surgical intervention. We will plan for concurrent colonoscopy and Delorme type procedure with excision of excess anterior rectal mucosal prolapse. Consent obtained Medical Decision Making: Data Reviewed: Tests AND Documents Reviewed/ordered: Review of prior notes from ,yself Review of Labs: CBC, BMP Review of Procedures / Tests: Colonoscopy Risk of morbidity, mortality and/or complications of treatment plan: nyla Odell MD Colorectal Surgery [facility] 11-03-2023 History of Presen t illness Narrative COLORECTAL SURGERY November 03, 2023 Billie Yeboah 78 year old This consult was requested by Dr. Forbes and my final recommendations will be communicated to the requesting health care provider by way of the shared medical record for internal providers or letter via the [employer] for external providers. Chief Complaint: BRBPR, hemorrhoids History of Present Illness: Billie Yeboah is a 78 year old female presents today for evaluation of BRBPR and hemorrhoids. Sigmoidoscopy 09/21/22 - Dr. Forbes Retroflexed views: There is small hypervascular appearing internal hemorrhoids extending down below the dentate line, comprising an external component as well. She reports she has had recurrence of rectal bleeding and it can be significant. She also reports that she has some thin brown/green fluid that is leaking out of her rectum without her knowledge. She is unsure if it is stool No past medical history on file. No past surgical history on file. Current Outpatient Medications Medication Sig Dispense Refill amitriptyline (ELAVIL) 50 mg tablet Take 50 mg by mouth once daily. levothyroxine (SYNTHROID) 112 mcg tablet Take 112 mcg by mouth once daily. dicyclomine (BENTYL) 20 mg tablet Take 20 mg by mouth twice daily. rosuvastatin (CRESTOR) 5 mg tablet Take 5 mg by mouth once daily. cholecalciferol (VITAMIN D3) 5,000 unit tab Take 5,000 Units by mouth once daily. No current facility-administered medications for this visit. ALLERGIES Allergen Reactions Ciprofloxacin Rash, Unknown Nitrofurantoin [place]* Other: See Comments, GI Upset Sulfamethoxazole-Tr* Other: See Comments, Rash No family history on file. Social History Tobacco Use Smoking status: Never Smokeless tobacco: Never Substance Use Topics Alcohol use: Never Drug use: Never Physical Exam: BP 179/87 (BP Site: Left Arm, BP Position: Sitting, BP Cuff Size: Regular Adult) Pulse 85 Temp 36.2 C (97.1 F) SpO2 98% General Appearance: Well appearing, alert, in no acute distress, well-hydrated, well nourished. Anorectal: External exam reveals soft external hemorrhoids. Digital rectal exam reveals no gross blood or masses. She has a weak squeeze and discoordinated push Certified Nurse Midwife present: Yes, Sarah Z Anoscopy: The patient was placed in chest-knee position. After digital exam with a lubricated finger, the scope was easily inserted. Anterior/left lateral redundant prolapsing mucosa/internal hemorrhoids noted. Otherwise normal mucosa was noted. Anoscopy completed. Preoperative diagnosis: First to second degree hemorrhoids. Procedure: Anoscopy, rubber band ligation of hemorrhoids. Postoperative diagnosis: Same Indications: This 78 year old was found to have internal hemorrhoids that were not suitable for conservative management. Description of procedure: The patient was placed in the chest-knee position. A time out was completed. A digital rectal exam was performed. A lubricated anoscope was inserted into the anal canal. The three hemorrhoidal pedicles were identified and the redundant rectal mucosa just above the largest internal hemorrhoids (anterior/left lateral) suctioned. Using the applicator, 2 rubber bands were placed around the tissue and were noted to be in good position. The mucosa was inspected for bleeding prior to withdrawal of the anoscope. The patient tolerated the procedure well with no excessive pain. Assessment Assessment and Plan: Billie Yeboah is a 78 year old female with large anterior internal hemorrhoid/mucosal prolapse status post rubber band ligation x 2 of this area. This gave her some good relief a year ago and I am hopeful that will do so again. If things are not getting better then she may require a Delorme type mucosal resection of this anterior redundant mucosa. I also think that some of the leakage she is having is from her use of stool softeners and I asked her to stop this to see if this improves her symptoms. In addition I also referred her to pelvic floor physical therapy as she seems to have weak sphincter muscles on exam. Her last colonoscopy she reports was about 2 or [address] Forbes and if the bleeding continues we may need to repeat this as well Medical Decision Making: Data Reviewed: Tests & Documents Reviewed/ordered: Review of prior notes from myself Review of Labs: CBC, BMP Review of Procedures / Tests: Flexible Sigmoidoscopy Risk of morbidity, mortality and/or complications of treatment plan: nyla Odell MD Colorectal Surgery documented in this encounter [facility] 11-03-2023 Note HNO ID: [id number] Author: FUNMILAYO ODELL MD Service: ? Author Type: Physician Type: Progress Notes Filed: 11/03/2023 14:59 Note Text: COLORECTAL SURGERY November 03, 2023 Billie Yeboah 78 year old This consult was requested by Dr. Forbes and my final recommendations will be communicated to the requesting health care provider by way of the shared medical record for internal providers or letter via the [employer] for external providers. Chief Complaint: BRBPR, hemorrhoids History of Present Illness: Billie Yeboah is a 78 year old female presents today for evaluation of BRBPR and hemorrhoids. Sigmoidoscopy 09/21/22 - Dr. Forbes Retroflexed views: There is small hypervascular appearing internal hemorrhoids extending down below the dentate line, comprising an external component as well. She reports she has had recurrence of rectal bleeding and it can be significant. She also reports that she has some thin brown/green fluid that is leaking out of her rectum without her knowledge. She is unsure if it is stool No past medical history on file. No past surgical history on file. Current Outpatient Medications Medication Sig Dispense Refill amitriptyline (ELAVIL) 50 mg tablet Take 50 mg by mouth once daily. levothyroxine (SYNTHROID) 112 mcg tablet Take 112 mcg by mouth once daily. dicyclomine (BENTYL) 20 mg tablet Take 20 mg by mouth twice daily. rosuvastatin (CRESTOR) 5 mg tablet Take 5 mg by mouth once daily. cholecalciferol (VITAMIN D3) 5,000 unit tab Take 5,000 Units by mouth once daily. No current facility-administered medications for this visit. ALLERGIES Allergen Reactions Ciprofloxacin Rash, Unknown Nitrofurantoin [place]* Other: See Comments, GI Upset Sulfamethoxazole-Tr* Other: See Comments, Rash No family history on file. Social History Tobacco Use Smoking status: Never Smokeless tobacco: Never Substance Use Topics Alcohol use: Never Drug use: Never Physical Exam: BP 179/87 (BP Site: Left Arm, BP Position: Sitting, BP Cuff Size: Regular Adult) Pulse 85 Temp 36.2 ?C (97.1 ?F) SpO2 98% General Appearance: Well appearing, alert, in no acute distress, well-hydrated, well nourished. Anorectal: External exam reveals soft external hemorrhoids. Digital rectal exam reveals no gross blood or masses. She has a weak squeeze and discoordinated push Certified Nurse Midwife present: Yes, Sarah Z Anoscopy: The patient was placed in chest-knee position. After digital exam with a lubricated finger, the scope was easily inserted. Anterior/left lateral redundant prolapsing mucosa/internal hemorrhoids noted. Otherwise normal mucosa was noted. Anoscopy completed. Preoperative diagnosis: First to second degree hemorrhoids. Procedure: Anoscopy, rubber band ligation of hemorrhoids. Postoperative diagnosis: Same Indications: This 78 year old was found to have internal hemorrhoids that were not suitable for conservative management. Description of procedure: The patient was placed in the chest-knee position. A time out was completed. A digital rectal exam was performed. A lubricated anoscope was inserted into the anal canal. The three hemorrhoidal pedicles were identified and the redundant rectal mucosa just above the largest internal hemorrhoids (anterior/left lateral) suctioned. Using the applicator, 2 rubber bands were placed around the tissue and were noted to be in good position. The mucosa was inspected for bleeding prior to withdrawal of the anoscope. The patient tolerated the procedure well with no excessive pain. Assessment Assessment and Plan: Billie Yeboah is a 78 year old female with large anterior internal hemorrhoid/mucosal prolapse status post rubber band ligation x 2 of this area. This gave her some good relief a year ago and I am hopeful that will do so again. If things are not getting better then she may require a Delorme type mucosal resection of this anterior redundant mucosa. I also think that some of the leakage she is having is from her use of stool softeners and I asked her to stop this to see if this improves her symptoms. In addition I also referred her to pelvic floor physical therapy as she seems to have weak sphincter muscles on exam. Her last colonoscopy she reports was about 2 or [address] Forbes and if the bleeding continues we may need to repeat this as well Medical Decision Making: Data Reviewed: Tests AND Documents Reviewed/ordered: Review of prior notes from myself Review of Labs: CBC, BMP Review of Procedures / Tests: Flexible Sigmoidoscopy Risk of morbidity, mortality and/or complications of treatment plan: nyla Odell MD Colorectal Surgery [facility] 11-03-2023 Nurse Note What is the reason for your visit today? BRBPR, hemorrhoids Who is your referring physician? Dr. Forbes Are you having poor oral intake? NO Have you had unintentional weight loss of 15 lbs/7 Kg in the last 3-6 months? NO Bowels: regular, bleeding with and without BMs, discharge, brown/green in color Wound: Temperature: No Drains: No [facility] 11-03-2023 Nurse Note What is the reason for your visit today? BRBPR, hemorrhoids Who is your referring physician? Dr. Forbes Are you having poor oral intake? NO Have you had unintentional weight loss of 15 lbs/7 Kg in the last 3-6 months? NO Bowels: regular, bleeding with and without BMs, discharge, brown/green in color Wound: Temperature: No Drains: No documented in this encounter [facility] 10-11-2023 Miscellaneous Notes Appointment with Dr. Odell is scheduled. Referral Scanned in for Dr. Odell, called pt and LVM, awaiting call back to schedule. documented in this encounter [facility] 04-10-2023 Evaluation note Encounter Date Diagnosis Assessment Notes Mar, IBS (irritable bowel syndrome) (ICD-10 - K58.9) [facility] Other 07-12-2023 Evaluation note* Encounter Date Diagnosis Assessment Notes Treatment Notes Treatment Clinical Notes Dec, Primary osteoarthrit is of first carpometacarpal joint of left hand (ICD-10 - M18.12) Progress as tolerated Discussed DIP fusions Dec, Trigger ring finger of left hand (ICD-10 - M65.342) Dec, Left hand pain (ICD- 10 - M79.642) [facility] Other 06-14-2023 Evaluation note* Encounter Date Diagnosis [...] Patient tolerated well with no adverse reactions. 14 Nov, 2022 Left hand pain (ICD- 10 - M79.642) [facility] Other 05-04-2023 History of Present illness Narrative* Funmilayo Odell MD - 10/27/2022 2:00 PM EDT COLORECTAL SURGERY October 27, 2022 Billie Yeboah 77 year old This consult was requested by Dr. Manoj Forbes and my final recommendations will be communicated to the requesting health care provider by way of the shared medical record for internal providers or letter via the [employer] for external providers. Chief Complaint: hemorrhoids History of Present Illness: Billie Yeboah is a 77 year old female [...] exam reveals no gross blood or masses Certified Nurse Midwife present: Yes, Maribell Joiner Anoscopy: The patient [...] no excessive pain. Assessment Assessment and Plan: Billie Yeboah is a 77 year old female [...] Odell MD [facility]* Maribell Joiner RN - 10/27/2022 [...] Temperature: No Drains: No [facility]* Encounter Date Diagnosis Assessment Notes Treatment Notes Treatment Clinical Notes Aug, Hemorrhoids (ICD-10 - K64.9) [facility] Encounter Date Diagnosis Assessment Notes Treatment Notes Treatment Clinical Notes Jul, IBS (irritable bowel syndrome) (ICD-10 - K58.9) [facility] Other 01-12-2023 NotePROCEDURE: XR HAND RT MIN [...] Electronically authenticated by: VIDYA CHAUDHARY Date: 2022-07-07 12:06[facility]10-10-2022 Evaluation note* Encounter Date Diagnosis Assessment Notes Treatment Notes Treatment Clinical Notes Mar, IBS (irritable bowel syndrome) (ICD-10 - K58.9) [facility] Other 08-10-2022 Evaluation note* Encounter Date Diagnosis Assessment Notes Treatment Notes Treatment Clinical Notes Jan, Primary osteoarthritis of right knee (ICD-10 - M17.11) Jan, History of total right knee replacement (ICD-10 - Z96.651) Jan, Age-related osteoporosis without current pathological fracture (ICD-10 - M81.0) Jan, Other joint terminal attack controller (current) drug therapy (ICD-10 - Z79.899) Jan, Trochanteric bursitis of right hip (ICD-10 - M70.61) Jan, Other [facility] R TKA at [facility] on 12/20/2021 Overall I think she is doing very well. The stitch that popped up in the proximal aspect the incision was removed. Patient tolerated this well. Patient may continue activities as tolerated. Recommended continuing physical therapy not only for her knee but also for greater trochanteric bursitis. Continue taking powo-[id number] anti-inflammatories as needed for assistance with swelling and pain associated with the operative extremity. I have also prescribed her some iron and vitamin C in the event that she did have some low postoperative hemoglobin. Follow-up in 6 weeks for repeat examination and long standing x-rays. [facility] Other 07-13-2022 Evaluation note* Encounter Date Diagnosis Assessment Notes Treatment Notes Treatment Clinical Notes Dec, Primary osteoarthritis of right knee (ICD-10 - M17.11) Dec, History of total right knee replacement (ICD-10 - Z96.651) Dec, Age-related osteoporosis without current pathological fracture (ICD-10 - M81.0) Dec, Other [facility] (current) drug therapy (ICD-10 - Z79.899) Dec, Other [facility] R TKA at [facility] on 12/20/2021 Doing well. Zipline was removed. [...] 3 view x-rays of the right knee. [facility] Other 06-17-2022 Evaluation note* Encounter Date Diagnosis [...] patient could proceed with surgery safely. The manager of distribution was vital for surgery timing and scheduling [...] plans. Prolonged services time spent: 32 minutes [facility] Other 06-17-2022 Evaluation note* Encounter Date Diagnosis Assessment Notes Treatment Notes Treatment Clinical Notes Nov, Primary osteoarthritis of right knee (ICD-10 - M17.11) [facility] Other 06-08-2022 Evaluation note* Encounter Date Diagnosis Assessment Notes Treatment Notes Treatment Clinical Notes Nov, Age-related osteoporosis without current pathological fracture (ICD-10 - M81.0) Nov, Primary osteoarthritis of right knee (ICD-10 - M17.11) Nov, Other joint terminal attack controller (current) drug therapy (ICD-10 - Z79.899) Nov, [...] replaced previously. Joints Meeting Checklist - Pharmacy: Replaced By [facility] med to bed - Approach/Technique: [place] - Implants: [...] for 4 to 5 years per her solar project engineer, Dr. Maldonado. All questions were answered after [...] elected to proceed with the above surgery. [facility] Other 05-18-2022 Evaluation note* Encounter Date Diagnosis Assessment Notes Treatment Notes Treatment Clinical Notes October, Age-related osteoporosis without current pathological fracture (ICD-10 - M81.0) October, Primary osteoarthritis of right knee (ICD-10 - M17.11) October, Other [facility] (current) drug therapy (ICD-10 - Z79.899) October, [...] or absent clearances could delay their surgery. [facility] Other 02-18-2022 Evaluation note* Encounter Date Diagnosis [...] injection well. 6. Follow up 3 months [facility] Other 10-26-2021 Evaluation note* Encounter Date Diagnosis Assessment Notes Treatment Notes Treatment Clinical Notes Mar, IBS (irritable bowel syndrome) (ICD-10 - K58.9) Colonoscopy Follow up in 1 year Mar, Special screening for malignant neoplasms, colon (ICD-10 - Z12.11) [facility] Other Evaluation noteNo assessment information available [facility] Work Phone: Evaluation note* Diagnosis Hemorrhoids, unspecified hemorrhoid type- Primary [facility] Diagnosis BRBPR (bright red blood per rectum)- Primary Hemorrhage of rectum and anus Hemorrhoids, unspecified hemorrhoid type Pelvic floor dysfunction Pelvic muscle wasting [facility] Diagnosis Hemorrhoids, unspecified hemorrhoid type- Primary [facility]* Diagnosis Preoperative examination- Primary Preoperative examination, unspecified BRBPR (bright red blood per rectum) Hemorrhage of rectum and anus Rectal prolapse Tachycardia Tachycardia, unspecified Hypothyroidism, unspecified type Osteoarthritis of both hands, unspecified osteoarthritis type Hyperlipidemia, unspecified hyperlipidemia type Neuropathy of both feet Unspecified hereditary and idiopathic peripheral neuropathy Irritable bowel syndrome with diarrhea Irritable bowel syndrome Urinary tract infection without hematuria, site unspecified BRBPR (bright red blood per rectum) Hemorrhage of rectum and anus Rectal prolapse [facility] Author Manoj Forbes [facility] September 21, 2022 10:51am Note Date/Time September 21, 2022 10: 51am [facility] [address] [place] [address] Gastroenterology H&P Signed Patient: Billie Yeboah MR#: [id number] : 1945 Acct:[id number] Age/Sex: 77 / F Adm Date: 3 Loc: Room: Type: [facility] Attending Dr: Manoj Forbes MD Copies to: [...] signed by Manoj Forbes MD> 09/21/22 1051 [facility] Work Phone: History general Narrative - Reported* Type Description Date Surgical History THYROID Surgical History LEFT KNEE REPLAEMENT Surgical History HYSTERECTOMY Surgical History BILATERAL FOOT SURGERY Surgical History HIP REPLACEMENT RIGHT Hospitalization History Stomach pains 1 night [facility] Other Hisauns general Narrative - Reported* Type Description Date Medical History Arthritis Medical History IBS Medical History thyroid disease Medical History high cholesterol Surgical History THYROID Surgical History LEFT KNEE REPLAEMENT Surgical History HYSTERECTOMY Surgical History BILATERAL FOOT SURGERY Surgical History HIP REPLACEMENT RIGHT Hospitalization History Stomach pains 1 night [facility] Other Hospital Discharge instructions Additional Instructions DISCHARGE [...] problems. -Follow up with PCP. -Office number [phone].[facility] Work Phone: Reason for referral (narrative)* Reason *FU 09/30 Consult for hemorrhoids. Referral faxed to Dr. Odell Diagnosis 1 Hemorrhoids (K64.9) Referral Organization [facility] Gastroenterolo sanjay Referring Provider First Name Manoj Referring Provider Last Name Leidy Referring Provider Specialty Gastroenter ology Referred [facility] Referred Provider FUNMILAYO ODELL Referred Address [address] [place], [place],[address] Referred Provider Specialty Colorectal S urgery Referral Priority Routine General Notes Melissa De Guzman 0 09/23/2022 10:05:39 AM > Referral faxed by office. [facility] Other Refres for referral (narrative)* Outpatient Procedure (Routine) - New Request Specialty Diagnoses / Procedures Referred By Charis sutton Ref[facility] To [facility] Diagnoses Preoperative examination Tachycardia Procedures ECG COMPLETE ECG ROUTINE ECG W/LEAST 12 LDS W/I&R Zaida Soriano PA-C [address] [place] [address] [facility] [place] [address] [place] [address] Referral ID Status Reason Start Date Expiration Date Visits Requested Visits Authorized [id number] New Request Auto-Generat ed Referral 02/28/2024 02/27/2025 1 1 [facility] Chief Complaint and Reason for Visit Chief Complaint Knee Pain Knee Pain Knee Pain Z96.651 Right TKA/post-op Chief Complaint Knee Pain Knee Pain Z96.651 Right TKA/post-op Chief Complaint Bright Red Per Rectu m, Anemia Chief Complaint R22.31 Family History No Family History Records Found Relationship Condition Age at Onset Recorded Date/T chalo father Heart disease Unknown Not Specified Alzheimer's dementia Unknown family member Malignant neoplasm of colon Unknown grandparent Malignant neoplasm of colon Unknown Advance Directives No Advanced Directives Records Found Advance Directive Response Recorded Date/ Time Advance Directives Yes October 02 10:10am Summary Purpose Reason for Referral Specialty Diagnoses / Procedures Referred By Contac t Referred To Contact [facility] Diagnoses Pelvic floor dysfunction Procedures CONSULT TO PHYSICAL THERAPY PHYSICAL THERAPY EVALUATION HIGH COMPLEX [address] [place] [address] [address] [place] [address] [facility] [place] [address] [place] [address] Referral ID Status Reason Start Date Expiration Date Visits Requested Visits Authorized [id number] Pending Review PCP Requested Referral Auto-Generate d Referral 11/03/2023 11/02/2024 99 99 Additional Source Comments REASON FOR VISIT (unrecogniz ed section and content) Reason Comments New Patient Consult for hemorrho ids Reason Comments Received Outside Medical Records Appointment Reason Comments Rectal Bleeding Hemorrhoids Reason Comments New Patient Hemorrhoids Rectal Bleeding Care Teams (unrecognized sec tion and content) Team Status: Inactive Member Role Status Dates Gisella Porter MD Primary Care Provider Active Syndey Erickson II, MD Attending Provider Active Team Status: Active Member Role Status Dates Gisella Porter MD Primary Care Provider Active Team Status: Inactive Member Role Status Dates Gisella Porter MD Primary Care Provider Active Manoj Forbes MD Attending Provider Active Acute Care Physical Therapist Relationship Specialty Start Date End Date Daryl Austin [address] [place] [address] PCP - General 10/11/00 Team Status: Inactive Member Role Status Dates Gisella Porter MD Primary Care Provider Active Ivette Taylor MD Attending Provider Active Acute Care Physical Therapist Relationship Specialty Start Date End Date Daryl Austin [address] [place] [address] PCP - General 10/11/00 Acute Care Physical Therapist Relationship Specialty Start Date End Date Daryl Austin [address] [place] [address] PCP - General 10/11/00 Acute Care Physical Therapist Relationship Specialty Start Date End Date GeovannaDaryl avelar [address] [place] [address] PCP - General 10/11/00 Acute Care Physical Therapist Relationship Specialty Start Date End Date Daryl Austin [address] [place] [address] PCP - General 10/11/00 02/28/24 Gisella Porter MD [address] [place] [address] PCP - General Family Medicine 02/29/24 INFORMATION SOURCE (unrecogn ized section and content) DATE CREATED AUTHOR 08/30/2022 [facility] DATE CREATED AUTHOR AUTHOR'S ORGANIZ ATION 12/30/2022 [facility] DATE CREATED AUTHOR AUTHOR'S ORGANIZ ATION 02/25/2024 [facility] DATE CREATED AUTHOR AUTHOR'S ORGANIZ ATION 03/05/2024 [facility] Source Comments (unrecognize d section and content) In the event this informatio n is protected by the Federal Confidentiality of Alcohol and Drug Abuse Patient Records regulations: The Federal rules restrict any use of the information to criminally investigate or prosecute any alcohol or drug abuse patient.[facility] the event this information is protected by the Federal Confidentiality of Alcohol and Drug Abuse Patient Records regulations: The Federal rules restrict any use of the information to criminally investigate or prosecute any alcohol or drug abuse patient.[facility] Center[facility] the event this information is protected by the Federal Confidentiality of Alcohol and Drug Abuse Patient Records regulations: The Federal rules restrict any use of the information to criminally investigate or prosecute any alcohol or drug abuse patient.[facility] the event this information is protected by the Federal Confidentiality of Alcohol and Drug Abuse Patient Records regulations: The Federal rules restrict any use of the information to criminally investigate or prosecute any alcohol or drug abuse patient.[facility] the event this information is protected by the Federal Confidentiality of Alcohol and Drug Abuse Patient Records regulations: The Federal rules restrict any use of the information to criminally investigate or prosecute any alcohol or drug abuse patient.[facility] Goals (unrecognized section and content) Goals may [...] BE BASED ON THE PRIMARY CLINICAL RECORDS. [facility] [employer] [facility]. provides no warranty or guarantee of the accuracy or completeness of information in this document.
[2024-03-05 11:49] LABS: Basophils Absolute Auto 0.1 10^3/uL (0.0-0.1); Basophils Percent Auto 1.1 % (0.2-2.0); Eosinophils Absolute Auto 0.5 10^3/uL (0.0-0.7); Eosinophils Percent Auto 9.9 % (0.9-7.0); Hematocrit 37.1 % (36.0-48.0); Hemoglobin 12.1 g/dL (12.0-16.0); Immature Granulocytes Abs Auto 0.02 10^3/uL (0.00-0.03); Immature Granulocytes Pct Auto 0.4 % (0.0-0.5); Lymphocytes Absolute Auto 1.1 10^3/uL (1.2-3.8); Lymphocytes Percent Auto 23.6 % (20.5-60.0); Mean Corpuscular HGB Conc 32.6 g/dL (29.9-35.2); Mean Corpuscular Hemoglobin 30.1 pg (26.7-34.0); Mean Corpuscular Volume 92.3 fL (81.0-99.0); Mean Platelet Volume 9.6 fL (9.5-13.5); Monocytes Absolute Auto 0.5 10^3/uL (0.3-0.8); Monocytes Percent Auto 9.6 % (1.7-12.0); Neutrophils Absolute Auto 2.6 10^3/uL (1.4-6.5); Neutrophils Percent Auto 55.4 % (43.0-75.0); Platelet Count 305 10^3/uL (150-450); Red Blood Count 4.02 10^6/uL (4.20-5.40); Red Cell Distribution Width 12.5 % (11.0-15.0); White Blood Count 4.7 10^3/uL (4.0-11.0)
[2024-03-05 11:54] LABS: Alanine Aminotransferase 20 U/L (14-59); Albumin Globulin Ratio 0.8; Albumin Level 3.1 g/dL (3.4-5.0); Alkaline Phosphatase 69 U/L (46-116); Anion Gap 10.6; Aspartate Amino Transferase 20 U/L (15-37); BUN Creatinine Ratio 11.6; Bilirubin Total 0.5 mg/dL (0.2-1.0); Calcium 8.8 mg/dL (8.5-10.1); Carbon Dioxide 31.6 mmol/L (21.0-32.0); Chloride 103 mmol/L (98-107); Estimated GFR (African America >60 (>=60); Estimated GFR (Non-African Ame >60 (>=60); Globulin 3.7 g/dL; Glucose 101 mg/dL (74-106); Potassium 4.2 mmol/L (3.5-5.1); Sodium 141 mmol/L (136-145); Thyroid Stimulating Hormone 0.061 uIU/mL (0.358-3.740); Total Protein 6.8 g/dL (6.4-8.2)
[2024-03-05 12:33] LABS: Free T4 1.66 ng/dL (0.76-1.46)
== END 2024-03-05 10:39 | disposition home or self-care (01) ==
LOC: LAB 10:40
PROVIDERS: PCP Family Medicine; Visit Provider Family Medicine
DX: D64.9 Anemia, unspecified (principal)
CPT/HCPCS: 36415; 80053; 84439; 84443; 85025

== ENCOUNTER 2024-03-26 12:54 | Outpatient (OUT) | payer MEDICARE, SELFPAY ==
--- OUTSIDE RECORDS SUMMARY | 2024-03-26 13:12 | XMS_ITS | CCD ---
Author Organization [facility]iniSy[facility] Care Team Providers Care Teller Manager Name Role Phone Manoj Forbes Unavailable Sydney Erickson II Unavailable MD Gisella Porter Primary Care Provider [phone] MD Sydney Erickson II Attending Provider MD Gisella Porter Primary Care Provider [phone] MD Sydney Erickson II Attending Provider [phone] NICKO, DR HOOVER Admitting Unavailable MISC, DR HOOVER Attending Unavailable HOY ., DR OBANDO Primary Care Unavailable MISC, DR HOOVER Consulting Unavailable HOY ., DR OBANDO Admitting Unavailable HOY ., DR OBANDO Attending Unavailable HOY ., DR OBANDO Primary Care Unavailable HOY ., DR OBANDO Consulting Unavailable [facility] [place], DR VIDYA Strong Consulting Unavailable HOY ., DR OBANDO Admitting Unavailable HOY ., DR OBANDO Attending Unavailable HOY ., DR OBANDO Primary Care Unavailable HOY ., DR OBANDO Consulting Unavailable HOY ., DR OBANDO Admitting Unavailable HOY ., DR OBANDO Attending Unavailable HOY ., DR OBANDO Primary Care Unavailable HOY ., DR OBANDO Consulting Unavailable KEYMAR, DR FUNMILAYO Ramirez Consulting Unavailable TYRONE, DR [...] Unavailable MD Gisella Porter Primary Care Provider [phone] MD Manoj Forbes Attending Provider Daryl Austin Primary Care Provider UnavailMD Ivette Treadwell Attending Provider [phone] MD Gisella Porter Primary Care Provider MD Sydney Erickson II Attending Provider [phone] Darek FREGOSO, [place] Attending Unavailabl Gisella Han Primary Care Unavailable Darek FREGOSO, [place] Admitting Unavailabl e Gisella Porter Primary Care Unavailable Ivette Taylor Admitting Unavailable Ivette Taylor Attending Unavailable Darek FREGOSO, [place] Attending Unavailabl rosio Erickson II, [place] Admitting Unavailabl e Gisella Porter Primary Care Unavailable Darek FREGOSO, [place] Admitting Unavailabl e Darek FREGOSO, [place] Attending Unavailabl Gisella Han Primary Care Unavailable Manoj Forbes Admitting Unavailable Manoj Forbes Attending Unavailable Gisella Porter Primary Care Unavailable Darek FREGOSO, [place] Attending Unavailabl e Gisella Porter Primary Care Unavailable Darek FREGOSO, [place] Admitting UnavailIvette Treadwell Unavailable [facility] Primary Care Provider UnavailDaryl Viera Primary Care Provider UnavailMANOJ Childress Referring Unavailable FUNMILAYO ODELL Attending Unavailable MANOJ FORBES Referring Unavailable FUNMILAYO ODELL Attending Unavailable Daryl Austin Primary Care Provider UnavailGisella Tinajero MD Primary Care Provider [phone] FUNMILAYO ODELL Attending Unavailable FUNMILAYO ODELL Admitting Unavailable FUNMILAYO ODELL Referring Unavailable ZAIDA SORIANO Referring Unavailable Allergies Allergy Classification Reported Allergen(s) Allergy Type Date of Onset Reaction(s) Facility (20 sources) Ciprofloxacin; Translations: [CIPROFLOXACIN] Drug Allergy 05-31-20 13 Rash, Unknown [facility] (20 sources) NITROFURANTOIN, MACROCRYSTALS / Nitrofurantoin, Monohydrate Drug Allergy 10-28-19 23 Other: See Comments, GI Upset [facility] (20 sources) Sulfamethoxazole / Trimethoprim Drug Allergy 05-31-20 13 Other: See Comments, Rash [facility] (3 sources) Ciprofloxacin; Translations: [Cipro] Drug Allergy 05-31-20 13 Unknown [facility] (3 sources) Sulfamethoxazole / Trimethoprim; Translations: [Bactrim] Drug Allergy 05-31-20 13 Unknown [facility] (6 sources) Nitrofurantoin; Translations: [nitrofurantoin] Drug Allergy 04-29-20 [facility] (6 sources) Sulfamethoxazole; Translations: [sulfamethoxazole] Drug Allergy 04-29-20 [facility] (6 sources) Trimethoprim; Translations: [trimethoprim] Drug Allergy 04-29-20 [facility] (1 source) Nitrofurantoin Drug Allergy 05-31-20 13 [facility] (1 source) Ciprofloxacin Drug Allergy 09-22-19 23 [facility] (2 sources) Sulfamethoxazole / Trimethoprim; Translations: [SULFAMETHOXAZOLE-T RIMETHOPRIM] Drug Allergy 05-31-20 13 [facility] Rep[facility] (2 sources) NITROFURANTOIN MONOHYD/M-CRYST; Translations: [NITROFURANTOIN MONOHYD/M-CRYST] Propensity to adverse reactions to drug (disorder) 10-28-19 [facility] Repository Medications Current Medications Medication Drug [...] daily. docusate sodium 50 mg / sennosides, shelter 8.6 mg oral tablet (5 sources) Start: [...] DOS: 12/21/2021 Nov, Not-Taking polyethylene glycol 3350 74086 mg powder for oral solution (8 sources) [...] surgery] Chronic Other aftercare (5 sources) Other terminologist (current) drug therapy; Translations: [OTH SAUSAGE STRINGER CURRENT DRUG THERAPY] Onset: 2 Resolved: 2 [...] Test Name Value Interpretation Reference Range Facility ANES POSTPROC EVALon 024 ANES POSTPROC EVAL HNO ID: [id number] Author: MONO WHALEY MD Service: Anesthesiology Author Type: Anesthesiologist Type: Anesthesia Postprocedure Evaluation Filed: 03/19/2024 11:33 Note Text: POST ANESTHESIA EVALUATION NOTE : 1945 Procedure Summary Date: 03/19/24 Room / Location: AV OR05 / AV OR Anesthesia Start: 738 Anesthesia Stop: 902 Procedures: EXCISION RECTAL PROCIDENTIA W/ ANASTOMOSIS (Anus) COLONOSCOPY (Anus) Diagnosis: BRBPR (bright red blood per rectum) Rectal prolapse (BRBPR (bright red blood per rectum) [K62.5]) (Rectal prolapse [K62.3]) Surgeons: Funmilayo Odell MD Responsible Provider: Mono Whaley MD Anesthesia Type: general ASA Status: 2 Anesthesia Type: general Airway Type: ETT Last Vitals Vitals Value Taken Time BP 148/90 03/19/24 1045 Temp 36.6 ?C (97.9 ?F) 03/19/24 0903 HR SpO2 93 03/19/24 1045 Resp 17 03/19/24 1045 SpO2 95 % 03/19/24 1045 Post Anesthesia Patient Status Patient Evaluation: PACU. PACU/ICU Patient Condition: stable. Anticipated Disposition: phase 2 then home. Neurological Status: aware and responsive. Pulmonary Status: breathing comfortably on room air Airway Control: returned to baseline unsupported. Cardiovascular Status: stable. Pain Management: clinically adequate Postoperative Hydration: acceptable. Intraoperative Events: no significant anesthesia events Post Operative Nausea/Vomiting Status: no significant post operative nausea or vomiting Recommendation: continue current plan of care. Anesthesia Observations No Documentation SIGNATURE: Mono Whaley MD PATIENT NAME: Billie Yeboah DATE: March 19, 2024 TIME: 11:33 AM CSN: [id number] [facility] ANES PRE-OPon 03-19-2024 ANES PRE-OP HNO ID: [id number] Author: MONO WHALEY MD Service: Anesthesiology Author Type: Anesthesiologist Type: Anesthesia Preprocedure Evaluation Filed: 03/19/2024 07:23 Note Text: ANESTHESIOLOGY DAY OF SURGERY NOTE : 1945 Procedure Information Date/Time: 03/19/24729 Procedures: EXCISION RECTAL PROCIDENTIA W/ ANASTOMOSIS (Anus) COLONOSCOPY (Anus) Location: AV OR05 / AV OR Surgeons: Funmilayo Odell MD Estimated body mass index is 23.77 kg/m? as calculated from the following: Height as of 02/28/24: 167.6 cm (5' 6 ). Weight as of 02/28/24: 66.8 kg (147 lb 4.3 oz). Most recent hematocrit and potassium results: Hematocrit 42.4 02/28/2024 Potassium 4.4 02/28/2024 Relevant Problems ENDO (+) Hypothyroidism I - PHYSICAL EVALUATION AIRWAY Patient intubated: No. Tracheostomy tube not present Mallampati: II. TM distance: >3 FB. Neck ROM: full ROM without neurological symptoms. Mouth opening: adequate. Short neck: no. Thick neck: no DENTAL Dental findings: teeth intact. II - ANESTHESIA PLAN ASA Score: 2 Anesthetic Plan: general Airway type: LMA The patient is not a current smoker. NPO Status: adequate Beta [place] Monitoring Plan Monitoring plan: standard ASA. Post Procedure Analgesic Plan Postoperative analgesic plan: multimodal analgesia. Informed Consent Anesthetic risks, benefits, alternatives, personnel and consent discussed: yes. Patient / Responsible Green Party agrees to proceed: yes Patient / Surrogate agrees to blood products: Yes Significant changes in the patient condition since the History and Physical, not otherwise documented in primary service progress note: no. Discussed the possibility of lip / dental damage: yes Vitals Value Taken Time BP 139/76 03/19/24 0710 Pulse 101 03/19/24 0710 Resp 16 03/19/24 0710 Temp 36 ?C (96.8 ?F) 03/19/24 0643 SpO2 96 % 03/19/24 0710 No current facility-administere d medications on file as of 03/19/2024. Outpatient Medications as of 03/19/2024 Medication Sig - amitriptyline (ELAVIL) 50 mg tablet Take 50 mg by mouth once daily. - levothyroxine (SYNTHROID) 112 mcg tablet Take 112 mcg by mouth once daily. - dicyclomine (BENTYL) 20 mg tablet Take 20 mg by mouth twice daily. - rosuvastatin (CRESTOR) 5 mg tablet Take 5 mg by mouth once daily. - Etodolac 500 mg tablet Etodolac Active 500 MG PO Twice daily April 29, 2021 12:00am - traMADol (ULTRAM) 50 mg tablet as needed for pain. - cholecalciferol (VITAMIN D3) 5,000 unit tab Take 5,000 Units by mouth once daily. I have interviewed and examined the patient. I have reviewed the medical record and/or the pre-anesthesia evaluation, pertinent labs, and test results. This contains updated information obtained within 48 hours of Surgery/Procedure. SIGNATURE: Mono Whaley MD PATIENT NAME: Billie Yeboah DATE: March 19, 2024 TIME: 7:22 AM CSN: [id number] Normal [facility] Colonoscopyon 03-19-2024 Colonoscopy [facility] Gastrointestinal Endoscopy Patient Name: Billie Yeboah Procedure Date: 03/19/2024 7:20 AM Date of : 1945 Admit Type: Outpatient Age: 78 Room: [place] OR Gender: Female Note Status: Finalized Attending MD: Funmilayo Odell MD, [id number] Procedure: Colonoscopy Indications: Rectal bleeding Providers: Funmilayo Odell MD Patient Profile: This is a 78 year old female. Refer to note in patient chart for documentation of history and physical. Last Colonoscopy: more than 3 years ago. Referring Physician: Medicines: Monitored Anesthesia Care Complications: No immediate complications. Requesting Provider: Procedure: Pre-Anesthesia Assessment: - Prior to the procedure, a History and Physical was performed, and patient medications and allergies were reviewed. The patient is competent. The risks and benefits of the procedure and the sedation options and risks were discussed with the patient. All questions were answered and informed consent was obtained. Patient identification and proposed procedure were verified by the physician and the nurse in the pre-procedure area in the endoscopy suite. Mental Status Examination: alert and oriented. Airway Examination: normal oropharyngeal airway and neck mobility. ASA Grade Assessment: III - A patient with severe systemic disease. After reviewing the risks and benefits, the patient was deemed in satisfactory condition to undergo the procedure. The anesthesia plan was to use monitored anesthesia care (MAC). Immediately prior to administration of medications, the patient was re-assessed for adequacy to receive sedatives. The heart rate, respiratory rate, oxygen saturations, blood pressure, adequacy of pulmonary ventilation, and response to care were monitored throughout the procedure. The physical status of the patient was re-assessed after the procedure. After I obtained informed consent, the scope was passed under direct vision. Throughout the procedure, the patient's blood pressure, pulse, and oxygen saturations were monitored continuously. The Colonoscope was introduced through the anus and advanced to the cecum, identified by appendiceal orifice and ileocecal valve. The colonoscopy was performed without difficulty. The patient tolerated the procedure well. The quality of the bowel preparation was good. The ileocecal valve, the appendiceal orifice and the rectum were photographed. Scope Withdrawal Time: 0 hours 16 minutes 1 second Moderate Sedation: MAC anesthesia was administered by the anesthesia team. Total Procedure Duration: 0 hours 32 minutes 41 seconds Findings: The perianal and digital rectal examinations were normal. The ileocecal valve was moderately lipomatous. Biopsies were taken with a cold forceps for histology. A segmental area of moderately granular and inflamed mucosa was found in the rectum and in the sigmoid colon. Biopsies were taken with a cold forceps for histology. The sigmoid and rectum were inflamed but rectosigmoid colon between the two was normal The exam was otherwise without abnormality on direct and retroflexion views. Impression: - Lipomatous ileocecal valve. Biopsied. - Granular and inflamed mucosa in the rectum and in the sigmoid colon. Biopsied. - The examination was otherwise normal on direct and retroflexion views. Recommendation: - Discharge patient to home. - Resume previous diet. - Continue present medications. - Await pathology results. - Repeat colonoscopy in 5 years for surveillance. - Patient has a contact number available for emergencies. The signs and symptoms of potential delayed complications were discussed with the patient. Return to normal activities tomorrow. Written discharge instructions were provided to the patient. Procedure Code(s): --- Professional --- 90093, Colonoscopy, flexible; with biopsy, single or multiple CPT copyright 2020 [employer]. All rights reserved. The codes documented in this report are preliminary and upon aix system administrator review may be revised to meet current compliance requirements. Attending Participation: I was present and participated during the entire procedure, including non-rodriguez portions. Scope In: 7:54:56 AM Scope Out: 8:27:37 AM MD Funmilayo Rausch MD 03/19/2024 8:32:20 AM This report has been signed electronically by Funmilayo Odell MD Number of Addenda: 0 Note Initiated On: 03/19/2024 7:20 AM Estimated Blood Loss: Estimated blood loss was minimal. Normal [facility] OPERATIVE NOon 03-19-2024 OPERATIVE NO HNO ID: [id number] Author: FUNMILAYO ODELL MD Service: Colorectal Author Type: Physician Type: Operative Report Filed: 03/19/2024 08:51 Note Text: COLON AND RECTAL SURGERY OPERATIVE REPORT PATIENT NAME: Billie Yeboah ADMISSION DATE: 03/19/2024 LOG ID: [id number] SURGERY/PROCEDURE DATE: 03/19/2024 INCISION/PROCEDURE START TIME: 7:54 AM INCISION CLOSE/PROCEDURE END TIME: 8:47 AM AGE: [age] year old SEX: female SURGEON(S)/PROCEDURA LIST(S) AND STEAM PLANT RECORDS CLERK(S): Surgeons and Role: * Funmilayo Odell MD - Primary * Goldy Gauthier MD - Resident - Assisting No Additional Staff ANESTHESIA: General PREOPERATIVE DIAGNOSIS (ES): Symptomatic hemorrhoidal prolapse POSTOPERATIVE DIAGNOSIS (ES): Colitis, proctitis NAME OF OPERATION: Colonoscopy with Biopsies, Rectal exam under anesthesia INDICATIONS FOR PROCEDURE: Symptomatic hemorrhoidal prolapse OPERATIVE FINDINGS: Two separate areas of moderate inflammation in sigmoid colon and rectum with normal area of rectosigmoid colon between DESCRIPTION OF PROCEDURE: The patient was brought to the operating room, placed under general anesthesia in the prone hans-knife position. A surgical time-out was performed. Colonoscopy was performed as documented in Provation. A lipomatous ileocecal valve was seen and this made it unable to enter the terminal ileum. Two separate areas of moderate inflammation in sigmoid colon and rectum with normal area of rectosigmoid colon between was also seen. The sigmoid colon and rectum were both biopsied. The perineum was prepped and draped in normal sterile fashion and anesthetized with 40 mL of 0.25% Marcaine. A detailed digital rectal exam and anoscopy was performed which revealed proctitis without significant mucosal prolapse. Decision was made to not proceed with Delorme procedure given the insignificant mucosal prolapse seen and also the severity of the two separate areas of inflammation seen in the sigmoid colon and rectum. Dressing was applied Will await biopsy results for source of colitis/proctitis, consider Crohn's disease. Likely this is the source of bleeding and will need to be treated. If symptoms persist after this can always consider defecography to further evaluate degree of prolapse. ESTIMATED BLOOD LOSS: 5 cc SPECIMENS: Ileocecal valve biopsy, sigmoid biopsy, rectal biopsy DRAINS: None COMPLICATIONS: None INTRAOPERATIVE FLUIDS: See anesthesia record. SPONGE/INSTRUMENT/NE EDLE COUNTS: Correct x2. PRESENCE STATEMENT: I was present for the entire procedure as I have dictated above. Funmilayo Odell M.D. Department of Surgery Division of Colon and Rectal Surgery Normal [facility] CBC panel Auto (Bld)on 02-27 Erythrocyte distribution width (RBC) [Ratio] 12.3 % 11.5 - 15.0 % [facility] Hematocrit (Bld) [Volume fraction] 42.4 % 36.0 - 46.0 % [facility] Hemoglobin (Bld) [Mass/Vol] 13.6 g/dL 11.5 - 15.5 g/dL [facility] Interpretation and review of laboratory results Normal [facility] MCH (RBC) [Entitic mass] 29.6 pg 26.0 - 34.0 pg [facility] MCHC (RBC) [Mass/Vol] 32.1 g/dL 30.5 - 36.0 g/dL [facility] MCV (RBC) [Entitic vol] 92.4 fL 80.0 - 100.0 fL [facility] Nucleated RBC (Bld) [#/Vol] NINF [facility] Platelet mean volume (Bld) [Entitic vol] 9.6 fL 9.0 - 12.7 fL [facility] Platelets (Bld) [#/Vol] 352 10*3/uL [facility] RBC (Bld) [#/Vol] 4.59 10*6/uL 3.90 - 5.2 0 m/uL [facility] WBC (Bld) [#/Vol] 6.15 10*3/uL [facility] Erythrocyte distribution width (RBC) [Ratio] 12.3 % Normal 11.5-15.0 [facility] Comment on above: Order Comment: Speci men Type: BLOOD SPECIMEN Ordering Facility: [facility] Address: [address] [place] [address] Performed By: #### 5 8410-2 #### [facility] CLIA [id number] [place], [place] [id number] [place] [address] [place] Hematocrit (Bld) [Volume fraction] 42.4 % Normal 36.0-46.0 [facility] Comment on above: Order Comment: Jonathani nhung Type: BLOOD SPECIMEN Ordering Facility: [facility] Address: [address] [place] [address] Performed By: #### 5 8410-2 #### [facility] CLIA [id number] [address] [place] [address] [place] Hemoglobin (Bld) [Mass/Vol] 13.6 g/dL Normal 11.5-15.5 [facility] Comment on above: Order Comment: Speci men Type: BLOOD SPECIMEN Ordering Facility: [facility] Address: [address] [place] [address] Performed By: #### 5 8410-2 #### [facility] CLIA [id number] [address] [place] [address] [place] MCH (RBC) [Entitic mass] 29.6 pg Normal 26.0-34.0 [facility] Comment on above: Order Comment: Speci men Type: BLOOD SPECIMEN Ordering Facility: [facility] Address: [address] [place] [address] Performed By: #### 5 8410-2 #### [facility] CLIA [id number] [address] [place] [address] [place] MCHC (RBC) [Mass/Vol] 32.1 g/dL Normal 30.5-36.0 [facility] Comment on above: Order Comment: Speci men Type: BLOOD SPECIMEN Ordering Facility: [facility] Address: [address] [place] [address] Performed By: #### 5 8410-2 #### [facility] IA [id number] [address] [place] [address] [place] MCV (RBC) [Entitic vol] 92.4 fL Normal 80.0-100.0 [facility] Comment on above: Order Comment: Speci men Type: BLOOD SPECIMEN Ordering Facility: [facility] Address: [address] [place] [address] Performed By: #### 5 8410-2 #### [facility] CLIA [id number] [place] Nucleated RBC (Bld) [#/Vol] 10*3/uL Normal <0.01 [facility] Comment on above: Order Comment: Speci men Type: BLOOD SPECIMEN Ordering Facility: [facility] Address: [address] [place] [address] Performed By: #### 5 8410-2 #### [facility] CLIA [id number] [address] [place] [address] [place] Platelet mean volume (Bld) [Entitic vol] 9.6 fL Normal 9.0-12.7 [facility] Comment on above: Order Comment: Speci men Type: BLOOD SPECIMEN Ordering Facility: [facility] Address: [address] [place] [address] Performed By: #### 5 8410-2 #### [facility] CLIA [id number] [facility] [place] [address] [place] Platelets (Bld) [#/Vol] 352 10*3/uL Normal 150-400 [facility] Comment on above: Order Comment: Speci men Type: BLOOD SPECIMEN Ordering Facility: [facility] Address: [address] [place] [address] Performed By: #### 5 8410-2 #### [facility] IA [id number] [address] [place] [address] [place] RBC (Bld) [#/Vol] 4.59 10*6/uL Normal 3.90-5.20 [facility] Comment on above: Order Comment: Speci men Type: BLOOD SPECIMEN Ordering Facility: [facility] Address: [address] [place] [address] Performed By: #### 5 8410-2 #### [facility] IA [id number] [address] [place] [address] [facility] [place] WBC (Bld) [#/Vol] 6.15 10*3/uL Normal 3.70-11.00 [facility] Comment on above: Order Comment: Speci men Type: BLOOD SPECIMEN Ordering Facility: [facility] Address: [address] [place] [address] Performed By: #### 5 8410-2 #### [facility] IA [id number] [address] [place] [address] [place] Comprehensive metabolic 2000 panelon 02-28-2024 Albumin [Mass/Vol] 4.1 g/dL 3.9 - 4.9 g/dL [facility] ALP [Catalytic activity/Vol] 77 U/L 34 - 123 U/L [facility] ALT [Catalytic activity/Vol] 14 U/L 7 - 38 U/L [facility] Anion gap [Moles/Vol] 12 mmol/L 8 - 15 mmol/L [facility] AST [Catalytic activity/Vol] 18 U/L 13 - 35 U/L [facility] Bilirubin [Mass/Vol] 0.5 mg/dL 0.2 - 1 .3 mg/dL [facility] Calcium [Mass/Vol] 9.4 mg/dL 8.5 - 10. 2 mg/dL [facility] Chloride [Moles/Vol] 102 mmol/L 98 - 10 7 mmol/L [facility] CO2 [Moles/Vol] 27 mmol/L 22 - 30 mmol/L [facility] Creatinine [Mass/Vol] 0.81 mg/dL 0.58 - 0.96 mg/dL [facility] GFR/1.73 sq M.predicted among non-blacks MDRD (S/P/Bld) [Vol rate/Area] 74 mL/min/{1.73_m2} - PINF [facility] Comment on above: Estimated Glomerular Filtration Rate [...] 107 mg/dL High 74 - 99 mg/dL [facility] Comment on above: The [employer] (ADA) provides guidance for [...] Standards of Medical Care in Diabetes 2016, [employer]. Diabetes Care. 2016.39(Suppl 1). Interpretation and review of laboratory results Abnormal [facility] Potassium [Moles/Vol] 4.4 mmol/L 3.7 - 5.1 mmol/L [facility] Protein [Mass/Vol] 7.5 g/dL 6.3 - 8.0 g/dL [facility] Sodium [Moles/Vol] 141 mmol/L 136 - 144 mmol/L [facility] Urea nitrogen [Mass/Vol] 11 mg/dL 7 - 21 mg/dL [facility] Albumin [Mass/Vol] 4.1 g/dL Normal 3.9-4.9 [facility] Comment on above: Order Comment: Speci men Type: BLOOD SPECIMEN Ordering Facility: [facility] Address: [address] [place] [address] Performed By: #### 3 016-3, 99443-8 #### [facility] CLIA [id number] [address] [place] [address] [place] ALP [Catalytic activity/Vol] 77 U/L Normal 34-123 [facility] Comment on above: Order Comment: Speci men Type: BLOOD SPECIMEN Ordering Facility: [facility] Address: [address] [place] [address] Performed By: #### 3 016-3, 10277-8 #### [facility] CLIA [id number] [address] [place] [address] [place] [Catalytic activity/Vol] 14 U/L Normal 7-38 [facility] Comment on above: Order Comment: Speci men Type: BLOOD SPECIMEN Ordering Facility: [facility] Address: [address] [place] [address] Performed By: #### 3 016-3, 88887-1 #### [facility] CLIA [id number] [address] [place] [address] [place] Anion gap [Moles/Vol] 12 mmol/L Normal 8-15 [facility] Comment on above: Order Comment: Speci men Type: BLOOD SPECIMEN Ordering Facility: [facility] Address: [address] [place] [address] Performed By: #### 3 016-3, 76746-2 #### [facility] CLIA [id number] [address] [place] [address] [place] AST [Catalytic activity/Vol] 18 U/L Normal 13-35 [facility] Comment on above: Order Comment: Speci men Type: BLOOD SPECIMEN Ordering Facility: [facility] Address: [address] [place] [address] Performed By: #### 3 , #### [facility] CLIA [id number] [address] [place] [address] [place] Bilirubin [Mass/Vol] 0.5 mg/dL Normal 0.2-1.3 [facility] Comment on above: Order Comment: Speci men Type: BLOOD SPECIMEN Ordering Facility: [facility] Address: [address] [place] [address] Performed By: #### 3 -3, #### [facility] CLIA [id number] [address] [place] [address] [place] Calcium [Mass/Vol] 9.4 mg/dL Normal 8.5-10.2 [facility] Comment on above: Order Comment: Speci men Type: BLOOD SPECIMEN Ordering Facility: [facility] Address: [address] [place] [address] Performed By: #### 3 , #### [facility] [place] [id number] [address] [place] [address] [place] Chloride [Moles/Vol] 102 mmol/L Normal 98-107 [facility] Comment on above: Order Comment: Speci men Type: BLOOD SPECIMEN Ordering Facility: [facility] Address: [address] [place] [address] Performed By: #### 3 016-, #### [facility] IA [id number] [address] [place] [address] [place] CO2 [Moles/Vol] 27 mmol/L Normal 22-30 [facility] Comment on above: Order Comment: Speci men Type: BLOOD SPECIMEN Ordering Facility: [facility] Address: [address] [place] [address] Performed By: #### 3 016-3, #### [facility] IA [id number] [address] [place] [address] [place] Creatinine [Mass/Vol] 0.81 mg/dL Normal 0.58-0.96 [facility] Comment on above: Order Comment: Speci men Type: BLOOD SPECIMEN Ordering Facility: [facility] Address: [address] [place] [address] Performed By: #### 3 016-3, 55709-8 #### [facility] CLIA [id number] [address] [place] [address] [place] Creatinine and Glomerular filtration rate.predicted panel (S/P/Bld) 74 mL/min/1.73m??? Normal >=60 [facility] Comment on above: Order Comment: Eliu hooker Type: BLOOD SPECIMEN Ordering Facility: [facility] Address: [address] [place] [address] Result Comment: Joycelyn mated Glomerular Filtration Rate [...] actual GFR. Performed By: #### 3 016-3, 89597-1 #### [facility] CLIA [id number] [address] [place] [address] [place] Glucose [Mass/Vol] 107 mg/dL High 74-99 [facility] Comment on above: Order Comment: Eliu hooker Type: BLOOD SPECIMEN Ordering Facility: [facility] Address: [address] [place] [address] Result Comment: The [employer] (ADA) provides guidance for cutoff [...] Standards of Medical Care in Diabetes 2016, [employer]. Diabetes Care. 2016.39(Suppl 1). Performed By: #### 3 016-3, 86847-9 #### [facility] IA [id number] [address] [place] [address] [place] Potassium [Moles/Vol] 4.4 mmol/L Normal 3.7-5.1 [facility] Comment on above: Order Comment: Speci men Type: BLOOD SPECIMEN Ordering Facility: [facility] Address: [address] [place] [address] Performed By: #### 3 016-3, 70051-3 #### [facility] IA [id number] [address] [place] [address] [place] Protein [Mass/Vol] 7.5 g/dL Normal 6.3-8.0 [facility] Comment on above: Order Comment: Speci men Type: BLOOD SPECIMEN Ordering Facility: [facility] Address: [address] [place] [address] Performed By: #### 3 016-3, 89554-9 #### [facility] IA [id number] [address] [place] [address] [place] Sodium [Moles/Vol] 141 mmol/L Normal 136-144 [facility] Comment on above: Order Comment: Speci men Type: BLOOD SPECIMEN Ordering Facility: [facility] Address: [address] [place] [address] Performed By: #### 3 016-3, 78368-9 #### [facility] IA [id number] [address] [place] [address] [place] Urea nitrogen [Mass/Vol] 11 mg/dL Normal 7-21 [facility] Comment on above: Order Comment: Speci men Type: BLOOD SPECIMEN Ordering Facility: [facility] Address: [address] [place] [address] Performed By: #### 3 016-3, 75014-4 #### [facility] IA [id number] [address] [place] [address] [place] ECG COMPLETEon 02-28-2024 ECG COMPLETE Ventricular Rate : 113 BPM Atrial Rate : 113 BPM P-R Interval : 166 ms QRS Duration : 86 ms Q-T Interval : 318 ms QTC Calculation(Bazett) : 436 ms Calculated P Broad Top : 66 degrees Calculated R Broad Top : -50 degrees Calculated T Broad Top : 69 degrees Sinus tachycardia Right atrial enlargement Left anterior fascicular block Possible Anterolateral infarct , age undetermined Abnormal ECG No previous ECGs available Confirmed by DANIEL LAZO MD ([id number]) on 03/06/2024 10:31:42 AM NAME : BILLIE YEBOAH PID : [id number] : 1945 Gender : Female Race : ORD : [id number] Procedure Date : Feb 28 2024 13:49:41 Edit Date : Mar 06 2024 10:31:46 Diagnosis: Sinus tachycardia Right atrial enlargement Left anterior fascicular block Possible Anterolateral infarct , age undetermined Abnormal ECG No previous ECGs available Confirmed by DANIEL LAZO MD ([id number]) on 03/06/2024 10:31:42 AM Test Reason : HCS Location : 301 : [facility] Overread By : DANIEL LAZO MD Edited By : DANIEL LAZO MD Referred By : FUNMILAYO ODELL Acquired by : Abdiaziz frances [facility] Free T4 [Mass/Vol]on 024 Interpretation and review of laboratory results Abnormal [facility] HISTORY PHYSICALon HISTORY PHYSICAL HNO ID: [id number] Author: ZAIDA SORIANO PA-C Service: ? Author Type: Physician Action Finisher Type: H&P Filed: 03/10/2024 13:47 Note Text: [facility] Pre-Anesthesia [...] has never had a prior EKG at [facility] before, but has at either [facility] or [facility]. Faxing for records for comparison. Checking CBC, [...] hands, unspecified osteoarthritis type Follows with outside director of psychology. On daily Etodolac and has Tramadol for [...] 35 kg/m2 Non-male patient STOP-Bang Score: 1 RQH1BG3-IUQc Score: QEL3EM3-ALJj Score: 0 ANESTHESIA FINDINGS: Intubation History: No [...] patient is ok to proceed with surgery. Addendum by Usha Alarcon PA-C on 03/06/24: Received letter from Dr. Porter that he is rechecking labs and will adjust medication accordingly and also re-checking BP next week, but still OK to proceed with upcoming surgery. Scanning letter into chart. Addendum 03/10/2024 Received phone call from patient 03/06/24, PCP Dr. Porter Reduced her levothyroxine dose from 112 mcg to 88 mcg Anesthesia Consult for chart review and review [...] mg tablet ECG COMPLETE Faxed release to [employer] (more content not included)... Normal [facility] T4 FREE/FREE THYROXINEon Free T4 [Mass/Vol] 1.9 ng/dL High 0.9 - 1.7 ng/dL [facility] T4 Free SerPl-mCncon 024 Free T4 [Mass/Vol] 1.9 ng/dL High 0.9-1.7 [facility] Comment on above: Order Comment: Speci men Type: BLOOD SPECIMEN Ordering Facility: [facility] Address: [address] [place] [address] Performed By: #### 3 024-7 #### [facility] CLIA [id number] [address] [place] [address] [id number] [id number] [place] THYROID STIMULATING HORMONEo n 02-28-2024 TSH Qn 0.120 m[IU]/L Low [facility] TSH Qnon 02-28-2024 Interpretation and review of laboratory results Abnormal [facility] TSH SerPl-aCncon 02-28-2024 TSH Qn 0.120 m[IU]/L Low 0.270-4.200 [facility] Comment on above: Order Comment: Eliu hooker Type: BLOOD SPECIMEN Ordering Facility: [facility] Address: [address] [place] [address] Performed By: #### 3 016-3, 60782-0 #### [facility] CLIA [id number] [address] [facility] [place] [address] [place] CNOVon 02-23-2024 CNOV Office Visit ([facility]) RAJENDRABILLIE Glover ([id number]) 1945 F Date Time Provider Department 02/23/24 2:40 PM FUNMILAYO ODELL [facility] During your visit today, we recorded the following information about you: Temperature Pulse Blood pressure Weight 97.5 degrees 103/minute 134/83 64.9 kg Height 1.676 m Funmilayo Odell MD 02/25/2024 9:51 PM Signed COLORECTAL SURGERY February 23, 2024 Billie Yeboah [...] Units by mouth once daily. No current facility-administere d medications for this visit. ALLERGIES Allergen Reactions Ciprofloxacin Rash, Unknown Nitrofurantoin Jenkins* Other: See Comments, GI Upset Sulfamethoxazole-Tr* Other: [...] exam reveals no gross blood or masses Corporate Treasurer present: Yes, Sarah Z Anoscopy: The patient [...] MD Colorectal Surgery Referring Provider: MANOJ FORBES [[id number]] Allergies As of Date: 02/23/2024 Noted Allergy Reaction CIPROFLOXACIN 05/31/2013 2 - Rash 16 - Unknown NITROFURANTOIN MONOHYD/M-CRYST 10/27/2022 14 - Other: See Comments 8 - GI Upset SULFAMETHOXAZOLE-TRI METHOPRIM 05/31/2013 14 - Other: See Comments 2 - Rash Date Reviewed: 02/23/2024 Reviewed by: Sarah Marroquin OCCA - Fully Assessed Reason for Visit: New Patient [172] Hemorrhoids [34143] Rectal Bleeding [202] Primary Visit Diagnosis:Hemorrhoid s, unspecified hemorrhoid type [K64.9] Prescriptions as of [...] Encounter Status:Closed by FUNMILAYO ODELL on 02/25/24 [facility] CNOVon 11-03-2023 CNOV Office Visit ([facility]) BILLIE YEBOAH ([id number]) 1945 F Date Time Provider Department 11/03/23 2:40 PM FUNMILAYO ODELL [facility] During your visit today, we recorded the following information about you: Temperature Pulse Blood pressure 97.1 degrees 85/minute 179/87 Shelly Bingham OCCA 11/03/2023 2:19 PM Signed What is [...] for internal providers or letter via the [employer] for external providers. Chief Complaint: [...] Units by mouth once daily. No current facility-administere d medications for this visit. ALLERGIES Allergen Reactions Ciprofloxacin Rash, Unknown Nitrofurantoin Jenkins* Other: See Comments, GI Upset Sulfamethoxazole-Tr* Other: [...] has a weak squeeze and discoordinated push Corporate Treasurer present: Yes, Sarah Z Anoscopy: The patient [...] reports was (more content not included)... Normal [facility] CNPNon 10-11-2023 CNPN Telephone ([facility]) BILLIE YEBOAH ([id number]) 1945 F Date Time Provider Department 10/11/23 FUNMILAYO ODELL [facility] During your visit today, we recorded the [...] Other: See Comments 8 - GI Upset SULFAMETHOXAZOLE-TRI METHOPRIM 05/31/2013 14 - Other: See Comments 2 - Rash Date Reviewed: 10/27/2022 Reviewed by: Funmilayo Odell MD - Fully Assessed Reason for Visit: Received Outside Medical Records [3421] Appointment [186] Prescriptions as of 10/11/2023 - [...] Of Date: 10/11/2023 (None) Encounter Status:Closed by BOB GUNNIAN on 10/11/23 Normal [facility] XR knee RT 2Von 12-23-2022 XR knee RT 2V [facility] [address] [place] [id number] XRay Report Signed Patient: Billie Yeboah MR#: [id number] : 1945 Acct:[id number] Age/Sex: 77 / F ADM Date: 12/23/22 Loc: [facility] Room: Type: REG CLI Attending Dr: Sydney Erickson II, MD Copies [...] COMPLICATION. Impression dictated by: Migue Groves Jr., DSunOSun12/23/2022 2:03 PM Dictation Location: [place] [address] Transcribed By: [facility] 12/23/22 1403 Dictated By: Migue Groves Jr, DO 12/23/22 1400 Signed By: 12/23/22 1403 [facility] XR hand LT min 3V*on 023 XR hand LT min 3V* [facility] [address] [place] [id number] XRay Report Signed Patient: Billie Yeboah MR#: [id number] : 1945 Acct:[id number] Age/Sex: 77 / F ADM Date: 12/07/22 [facility] Room: Type: REG CLI Attending Dr: Ivette Taylor MD Copies to: [...] Lg Lua M.D.12/07/2022 1:35 PM Dictation Location: [place] [address] Transcribed By: [facility] 12/07/22 1335 Dictated By: Lg Lua DO 12/07/22 1331 Signed By: 12/07/22 1335 [facility] CBC AUTO DIFFon 08-23-2022 BASO # 0.0 103/ul Normal 0.0-0.1 [facility] Comment on above: Performed By: #### I WIL VITAD #### [facility] [address] [place] [address] Dr. Ryann Pearce Basophils/100 WBC (Bld) 1.0 % Normal 0.2-2.0 [facility] Comment on above: Performed By: #### Colin DE LA TORRE VITAD #### [facility] [address] [place] [address] Dr. Ryann Pearce EO # 0.2 103/ul Normal 0.0-0.7 [facility] Comment on above: Performed By: #### I WIL VITAD #### [facility] [address] [place] [address] [address] Ryann Pearce Eosinophils/100 WBC (Bld) 3.8 % Normal 0.9-7.0 [facility] Comment on above: Performed By: #### I WIL VITAD #### [facility] [address] [place] [address] Dr. Ryann Pearce Erythrocyte distribution width (RBC) [Ratio] 12.1 % Normal 11.0-15.0 [facility] Comment on above: Performed By: #### Colin DE LA TORRE VITAD #### [facility] [address] [place] [address] Dr. Ryann Pearce Hematocrit (Bld) [Volume fraction] 35.5 % Critically low 36.0-48.0 [facility] Comment on above: Performed By: #### Colin DE LA TORRE VITAD #### [facility] [address] [place] [address] Dr. Ryann Pearce Hemoglobin (Bld) [Mass/Vol] 11.7 g/dL Critically low 12.0-16.0 [facility] Comment on above: Performed By: #### Colin DE LA TORRE VITAD #### [facility] [address] [place] [address] Dr. Ryann Pearce IG # 0.01 10e3/ul Normal 0.00-0.03 [facility] Comment on above: Performed By: #### Colin DE LA TORRE VITAD #### [facility] [address] [place] [address] Dr. Ryann Perace IG % 0.3 % Normal 0.0-0.5 [facility] Comment on above: Performed By: #### Colin DE LA TORRE VITAD #### [facility] [address] [place] [address] Dr. Ryann Pearce LYMPH # 1.2 103/ul Normal 1.2-3.8 [facility] Comment on above: Performed By: #### Colin DE LA TORRE VITAD #### [facility] [address] [place] [address] Dr. Ryann Pearce Lymphocytes/100 WBC (Bld) 31.5 % Normal 20.5-60.0 [facility] Comment on above: Performed By: #### Colin DE LA TORRE VITAD #### [facility] [address] [place] [address] Dr. Ryann Pearce MANUAL DIFF REQ NO Normal [facility] Comment on above: Performed By: #### Colin DE LA TORRE VITAD #### [facility] [address] [place] [address] Dr. Ryann Pearce MCH (RBC) [Entitic mass] 29.5 pg Normal 26.7-34.0 [facility] Comment on above: Performed By: #### I WIL, VITAD #### [facility] [address] [place] [address] Dr. Ryann Pearce MCHC (RBC) [Mass/Vol] 33.0 g/dL Normal 29.9-35.2 [facility] Comment on above: Performed By: #### I WIL, VITAD #### [facility] [address] [place] [address] Dr. Ryann Pearce MCV (RBC) [Entitic vol] 89.6 fL Normal 81.0-99.0 [facility] Comment on above: Performed By: #### I WIL, VITAD #### [facility] [address] [place] [address] Dr. Ryann Pearce MONO # 0.5 103/ul Normal 0.3-0.8 [facility] Comment on above: Performed By: #### I WIL, VITAD #### [facility] [address] [place] [address] Dr. Ryann Pearce Monocytes/100 WBC (Bld) 13.2 % Critically high 1.7-12.0 [facility] Comment on above: Performed By: #### I WIL, VITAD #### [facility] [address] [place] [address] Dr. Ryann Pearce NEUT # 2.0 103/ul Normal 1.4-6.5 [facility] Comment on above: Performed By: #### Colin DE LA TORRE, VITAD #### [facility] [address] [place] [address] Dr. Ryann Pearce Neutrophils/100 WBC (Bld) 50.2 % Normal 43.0-75.0 [facility] Comment on above: Performed By: #### I WIL, VITAD #### [facility] [address] [place] [address] Dr. Ryann Pearce Platelet mean volume (Bld) [Entitic vol] 8.9 fL Critically low 9.5-13.5 [facility] Comment on above: Performed By: #### I WIL, VITAD #### [facility] [address] [place] [address] [address] Ryann Pearce PLT 253 103/ul Normal 150-450 [facility] Comment on above: Performed By: #### I WIL, VITAD #### [facility] [address] [place] [place] [address] [address] Ryann Paerce RBC 3.96 106/ul Critically low 4.20-5.40 [facility] Comment on above: Performed By: #### I WIL, VITAD #### [facility] [address] [place] [address] Dr. Ryann Pearce WBC 3.9 103/ul Critically low 4.0-11.0 [facility] Comment on above: Performed By: #### I WIL, VITAD #### [facility] [address] [place] [address] Dr. Ryann Pearce PROF 14(COMP METB)on 023 Albumin [Mass/Vol] 3.3 g/dL Critically low 3.4-5.0 [facility] Comment on above: Performed By: #### I WIL, VITAD #### [facility] [address] [place] [address] Dr. Ryann Pearce Albumin/Globulin [Mass ratio] 1.0 {ratio} Normal [facility] Comment on above: Performed By: #### I WIL, VITAD #### [facility] [address] [place] [address] Dr. Ryann Pearce ALP [Catalytic activity/Vol] 65 U/L Normal 46-116 [facility] Comment on above: Performed By: #### I WIL, VITAD #### [facility] [address] [place] [address] Dr. Ryann Pearce ALT [Catalytic activity/Vol] 30 U/L Normal 14-59 [facility] Comment on above: Performed By: #### I WIL, VITAD #### [facility] [address] [place] [address] Dr. Ryann Pearce Anion gap [Moles/Vol] 10.0 mmol/L Normal [facility] Comment on above: Performed By: #### I WIL, VITAD #### [facility] [address] [place] [place] [address] [address] Ryann Pearce AST [Catalytic activity/Vol] 26 U/L Normal 15-37 [facility] Comment on above: Performed By: #### I WIL, VITAD #### [facility] [address] [place] [address] Dr. Ryann Pearce Bilirubin [Mass/Vol] 0.4 mg/dL Normal 0.2-1.0 [facility] Comment on above: Performed By: #### I WIL, VITAD #### [facility] [address] [place] [address] Dr. Ryann Pearce Calcium [Mass/Vol] 8.8 mg/dL Normal 8.5-10.1 [facility] Comment on above: Performed By: #### I WIL, VITAD #### [facility] [address] [place] [address] Dr. Ryann Pearce Chloride [Moles/Vol] 105 mmol/L Normal 98-107 [facility] Comment on above: Performed By: #### I WIL, VITAD #### [facility] [address] [place] [address] Dr. Ryann Pearce CO2 [Moles/Vol] 30.1 mmol/L Normal 21.0-32.0 [facility] Comment on above: Performed By: #### I WIL, VITAD #### [facility] [address] [place] [address] Dr. Ryann Pearce Creatinine [Mass/Vol] 0.90 mg/dL Normal 0.55-1.02 [facility] Comment on above: Performed By: #### I WIL, VITAD #### [facility] [address] [place] [address] Dr. Ryann Pearce EGFR-AF NEPALESE >60 Normal >=60 [facility] Comment on above: Performed By: #### I WIL, VITAD #### [facility] [address] [place] [address] Dr. Ryann Pearce EGFR-NON AF NEPALESE >60 Normal >=60 [facility] Comment on above: Performed By: #### I WIL, VITAD #### [facility] [address] [place] [address] [address] Ryann Pearce Globulin (S) [Mass/Vol] 3.3 g/dL Normal [facility] Comment on above: Performed By: #### I WIL, VITAD #### [facility] [address] [place] [address] Dr. Ryann Pearce Glucose [Mass/Vol] 100 mg/dL Normal 74-106 [facility] Comment on above: Performed By: #### I WIL, VITAD #### [facility] [address] [place] [address] Dr. Ryann Pearce Potassium [Moles/Vol] 4.1 mmol/L Normal 3.5-5.1 [facility] Comment on above: Performed By: #### I WIL, VITAD #### [facility] [address] [place] [address] Dr. Ryann Pearce Protein [Mass/Vol] 6.6 g/dL Normal 6.4-8.2 [facility] Comment on above: Performed By: #### I WIL, VITAD #### [facility] [address] [place] [address] Dr. Ryann Pearce Sodium [Moles/Vol] 141 mmol/L Normal 136-145 [facility] Comment on above: Performed By: #### Colin DE LA TORRE, VITAD #### [facility] [address] [place] [address] Dr. Ryann Pearce Urea nitrogen [Mass/Vol] 13.0 mg/dL Normal 7.0-18.0 [facility] Comment on above: Performed By: #### I WIL, VITAD #### [facility] [address] [place] [address] Dr. Ryann Pearce Urea nitrogen/Creatinine [Mass ratio] 14.4 mg/mg Normal [facility] Comment on above: Performed By: #### I WIL, VITAD #### [facility] [address] [place] [address] Dr. Ryann Pearce CBC AUTO DIFFon 06-06-2022 BASO # 0.0 103/ul Normal 0.0-0.1 [facility] Comment on above: Performed By: #### Colin DE LA TORRE VITAD #### [facility] [address] [place] [address] Dr. Rynan Pearce Basophils/100 WBC (Bld) 1.2 % Normal 0.2-2.0 [facility] Comment on above: Performed By: #### Colin DE LA TORRE VITAD #### [facility] [address] [place] [address] Dr. Ryann Pearce EO # 0.1 103/ul Normal 0.0-0.7 [facility] Comment on above: Performed By: #### Colin DE LA TORRE VITAD #### [facility] [address] [place] [address] Dr. Ryann Pearce Eosinophils/100 WBC (Bld) 3.3 % Normal 0.9-7.0 [facility] Comment on above: Performed By: #### Colin DE LA TORRE VITAD #### [facility] [address] [place] [address] Dr. Ryann Pearce Erythrocyte distribution width (RBC) [Ratio] 12.5 % Normal 11.0-15.0 [facility] Comment on above: Performed By: #### Colin DE LA TORRE VITAD #### [facility] [address] [place] [address] Dr. Ryann Pearce Hematocrit (Bld) [Volume fraction] 38.7 % Normal 36.0-48.0 [facility] Comment on above: Performed By: #### Colin DE LA TORRE VITAD #### [facility] [address] [place] [address] Dr. Ryann Pearce Hemoglobin (Bld) [Mass/Vol] 12.8 g/dL Normal 12.0-16.0 [facility] Comment on above: Performed By: #### Colin DE LA TORRE VITAD #### [facility] [address] [place] [address] Dr. Ryann Pearce IG # 0.01 10e3/ul Normal 0.00-0.03 [facility] Comment on above: Performed By: #### I WIL, VITAD #### [facility] [address] [address] [address] Ryann Pearce IG % 0.3 % Normal 0.0-0.5 [facility] Comment on above: Performed By: #### I WIL, VITAD #### [facility] [address] [address] [address] Ryann Pearce LYMPH # 1.1 103/ul Critically low 1.2-3.8 [facility] Comment on above: Performed By: #### I WIL, VITAD #### [facility] [address] [place] [address] Dr. Ryann Pearce Lymphocytes/100 WBC (Bld) 32.0 % Normal 20.5-60.0 [facility] Comment on above: Performed By: #### I WIL, VITAD #### [facility] [address] [place] [address] Dr. Ryann Pearce MANUAL DIFF REQ NO Normal [facility] Comment on above: Performed By: #### I WIL VITAD #### [facility] [address] [place] [address] Dr. Ryann Pearce MCH (RBC) [Entitic mass] 29.6 pg Normal 26.7-34.0 [facility] Comment on above: Performed By: #### I WIL, VITAD #### [facility] [address] [place] [address] Dr. Ryann Pearce MCHC (RBC) [Mass/Vol] 33.1 g/dL Normal 29.9-35.2 [facility] Comment on above: Performed By: #### I WIL, VITAD #### [facility] [address] [place] [address] Dr. Ryann Pearce MCV (RBC) [Entitic vol] 89.4 fL Normal 81.0-99.0 [facility] Comment on above: Performed By: #### I WIL, VITAD #### [facility] [address] [place] [address] Dr. Ryann Pearce MONO # 0.4 103/ul Normal 0.3-0.8 [facility] Comment on above: Performed By: #### I WIL, VITAD #### [facility] [address] [place] [address] Dr. Ryann Pearce Monocytes/100 WBC (Bld) 11.1 % Normal 1.7-12.0 [facility] Comment on above: Performed By: #### Colin DE LA TORRE, VITAD #### [facility] [address] [place] [address] Dr. Ryann Pearce NEUT # 1.7 103/ul Normal 1.4-6.5 [facility] Comment on above: Performed By: #### I WIL, VITAD #### [facility] [address] [place] [address] Dr. Ryann Pearce Neutrophils/100 WBC (Bld) 52.1 % Normal 43.0-75.0 [facility] Comment on above: Performed By: #### Colin DE LA TORRE VITAD #### [facility] [address] [place] [address] Dr. Ryann Pearce Platelet mean volume (Bld) [Entitic vol] 9.3 fL Critically low 9.5-13.5 [facility] Comment on above: Performed By: #### oClin DE LA TORRE VITAD #### [facility] [address] [place] [address] Dr. Ryann Pearce PLT 255 103/ul Normal 150-450 [facility] Comment on above: Performed By: #### Colin DE LA TORRE, VITAD #### [facility] [address] [place] [address] Dr. Raynn Pearce RBC 4.33 106/ul Normal 4.20-5.40 [facility] Comment on above: Performed By: #### Colin DE LA TORRE, VITAD #### [facility] [address] [place] [address] Dr. Ryann Pearce WBC 3.3 103/ul Critically low 4.0-11.0 [facility] Comment on above: Performed By: #### Colin DE LA TORRE, VITAD #### [facility] [address] [place] [address] Dr. Ryann Pearce FREE THYROXINE INDEX T7on FTI 2.96 Normal 1.30-4.50 [facility] Comment on above: Performed By: #### T SH, LIPID, T7, CMP #### [facility] [address] [address] [address] Ryann Pearce T3U 34.0 % Normal 30.0-39.0 [facility] Comment on above: Performed By: #### T SH, LIPID, T7, CMP #### [facility] [address] [address] [address] Ryann Pearce T4 [Mass/Vol] 8.70 ug/dL Normal 4.80-13.90 [facility] Comment on above: Performed By: #### T SH, LIPID, T7, CMP #### [facility] [address] [address] [address] Ryann Pearce GLYCOHEMOGLOBIN A1Con 2021 ADA RECOMMENDATION SEE BELOW Normal [facility] Comment on above: Result Comment: ADA RECOMMENDED LIMIT 4.0 - 6.0 ADA THERAPEUTIC TARGET < 7.0 ACTION SUGGESTED > 7.0 Performed By: #### A 1C #### [facility] [address] [address] [address] Ryann Pearce Glucose [Mass/Vol] 105 mg/dL Normal [facility] Comment on above: Performed By: #### A 1C #### [facility] [address] [address] [address] Ryann Pearce HbA1c (Bld) [Mass fraction] 5.3 % Normal 4.5-6.2 [facility] Comment on above: Performed By: #### A 1C #### [facility] [address] [address] [address] Ryann Pearce IRONon 06-06-2022 Iron [Mass/Vol] 104.0 ug/dL Normal 50.0-170.0 [facility] Comment on above: Performed By: #### I NIKI DE LA TORRE #### [facility] [address] [place] [address] Dr. Ryann Pearce LIPID PROFILEon 06-06-2022 CHOL-HDL RATIO NORM SEE BELOW Normal [facility] Comment on above: Result Comment: 3.3 - 4.4 LOW RISK 4.4 - 7.1 AVERAGE RISK 7.1 - 11.0 MODERATE RISK >11.0 HIGH RISK Performed By: #### T SH, LIPID, T7, CMP #### [facility] [address] [address] [address] Ryann Pearce Cholesterol [Mass/Vol] 160 mg/dL Normal <=200 [facility] Comment on above: Performed By: #### T SH, LIPID, T7, CMP #### [facility] [address] [address] [address] Ryann Pearce Cholesterol in HDL [Mass/Vol] 75 mg/dL Critically high 40-60 [facility] Comment on above: Performed By: #### T SH, LIPID, T7, CMP #### [facility] [address] [place] [address] Dr. Ryann Pearce Cholesterol in LDL [Mass/Vol] 66.6 mg/dL Normal [facility] Comment on above: Performed By: #### T SH, LIPID, T7, CMP #### [facility] [address] [place] [address] Dr. Ryann Pearce Cholesterol.total/Chol esterol in HDL [Mass ratio] 2.1 {ratio} Normal [facility] Comment on above: Performed By: #### T SH, LIPID, T7, CMP #### [facility] [address] [place] [address] Dr. Ryann Pearce HDL NORMAL > or = 60 mg/dl - LOW CARDIOVASCULAR RISK <40 mg/dl - HIGH CARDIOVASCULAR RISK Normal [facility] Comment on above: Performed By: #### T SH, LIPID, T7, CMP #### [facility] [address] [place] [address] Dr. Ryann Pearce LDL CALC NORMAL SEE BELOW Normal [facility] Comment on above: Result Comment: <100 mg/dl OPTIMAL 100 - 129 mg/dl NEAR OR ABOVE OPTIMAL 130 - 159 mg/dl BORDERLINE HIGH 160 - 189 mg/dl HIGH >190 mg/dl VERY HIGH Performed By: #### T SH, LIPID, T7, CMP #### [facility] [address] [place] [address] Dr. Ryann Pearce Triglyceride [Mass/Vol] 92 mg/dL Normal <=150 [facility] Comment on above: Performed By: #### T SH, LIPID, T7, CMP #### [facility] [address] [address] [address] Ryann Pearce VLDL CALC 18.4 mg/dL Normal [facility] Comment on above: Performed By: #### T SH, LIPID, T7, CMP #### [facility] [address] [address] [address] Ryann Pearce PROF 14(COMP METB)on 022 Albumin [Mass/Vol] 3.4 g/dL Normal 3.4-5.0 [facility] Comment on above: Performed By: #### T SH, LIPID, T7, CMP #### [facility] [address] [place] [address] Dr. Ryann Pearce Albumin/Globulin [Mass ratio] 1.0 {ratio} Normal [facility] Comment on above: Performed By: #### T SH, LIPID, T7, CMP #### [facility] [address] [place] [address] Dr. Ryann Pearce ALP [Catalytic activity/Vol] 71 U/L Normal 46-116 [facility] Comment on above: Performed By: #### T SH, LIPID, T7, CMP #### [facility] [address] [place] [address] Dr. Ryann Pearce ALT [Catalytic activity/Vol] 19 U/L Normal 14-59 [facility] Comment on above: Performed By: #### T SH, LIPID, T7, CMP #### [facility] [address] [address] [address] Ryann Pearce Anion gap [Moles/Vol] 7.8 mmol/L Normal [facility] Comment on above: Performed By: #### T SH, LIPID, T7, CMP #### [facility] [address] [place] [address] Dr. Ryann Pearce AST [Catalytic activity/Vol] 21 U/L Normal 15-37 [facility] Comment on above: Performed By: #### T SH, LIPID, T7, CMP #### [facility] [address] [address] [address] Ryann Pearce Bilirubin [Mass/Vol] 0.6 mg/dL Normal 0.2-1.0 [facility] Comment on above: Performed By: #### T SH, LIPID, T7, CMP #### [facility] [address] [address] [address] Ryann Pearce Calcium [Mass/Vol] 8.7 mg/dL Normal 8.5-10.1 [facility] Comment on above: Performed By: #### T SH, LIPID, T7, CMP #### [facility] [address] [address] [address] Ryann Pearce Chloride [Moles/Vol] 103 mmol/L Normal 98-107 [facility] Comment on above: Performed By: #### T SH, LIPID, T7, CMP #### [facility] [address] [place] [address] Dr. Ryann Pearce CO2 [Moles/Vol] 34.4 mmol/L Critically high 21.0-32.0 [facility] Comment on above: Performed By: #### T SH, LIPID, T7, CMP #### [facility] [address] [address] [address] Ryann Pearce Creatinine [Mass/Vol] 0.75 mg/dL Normal 0.55-1.02 [facility] Comment on above: Performed By: #### T SH, LIPID, T7, CMP #### [facility] [address] [place] [address] Dr. Ryann Pearce EGFR-AF NEPALESE >60 Normal >=60 [facility] Comment on above: Performed By: #### T SH, LIPID, T7, CMP #### [facility] [address] [place] [address] Dr. Ryann Pearce EGFR-NON AF NEPALESE >60 Normal >=60 [facility] Comment on above: Performed By: #### T SH, LIPID, T7, CMP #### [facility] [address] [place] [address] Dr. Ryann Pearce Globulin (S) [Mass/Vol] 3.5 g/dL Normal [facility] Comment on above: Performed By: #### T SH, LIPID, T7, CMP #### [facility] [address] [address] [address] Ryann Pearce Glucose [Mass/Vol] 95 mg/dL Normal 74-106 [facility] Comment on above: Performed By: #### T SH, LIPID, T7, CMP #### [facility] [address] [address] [address] Ryann Pearce Potassium [Moles/Vol] 4.2 mmol/L Normal 3.5-5.1 [facility] Comment on above: Performed By: #### T SH, LIPID, T7, CMP #### [facility] [address] [place] [address] Dr. Ryann Pearce Protein [Mass/Vol] 6.9 g/dL Normal 6.4-8.2 [facility] Comment on above: Performed By: #### T SH, LIPID, T7, CMP #### [facility] [address] [address] [address] Ryann Pearce Sodium [Moles/Vol] 141 mmol/L Normal 136-145 [facility] Comment on above: Performed By: #### T SH, LIPID, T7, CMP #### [facility] [address] [place] [address] Dr. Ryann Pearce Urea nitrogen [Mass/Vol] 10.0 mg/dL Normal 7.0-18.0 [facility] Comment on above: Performed By: #### T SH, LIPID, T7, CMP #### [facility] [address] [place] [address] Dr. Ryann Pearce Urea nitrogen/Creatinine [Mass ratio] 13.3 mg/mg Normal [facility] Comment on above: Performed By: #### T SH, LIPID, T7, CMP #### [facility] [address] [place] [address] Dr. Ryann Pearce TSHon 06-06-2022 TSH 0.151 uIU/mL Critically low 0.358-3.740 [facility] Comment on above: Performed By: #### T SH, LIPID, T7, CMP #### [facility] [address] [place], [place] [address] Dr. Ryann Pearce VITAMIN D 25 OHon 06-06-2022 VIT D 25-OH 75.4 ng/mL Normal [facility] Comment on above: Performed By: #### I WIL, VITAD #### [facility] [address] [place], [place] [address] Dr. Ryann Pearce VIT D RANGES SEE BELOW Normal [facility] Comment on above: Result Comment: <20 ng/mL Vit D deficient 20 - <30 ng/mL Vit D insufficient 30 - 100 ng/mL Vit D sufficient >100 ng/mL Potential Toxicity Performed By: #### I WIL VITAD #### [facility] [address] [address] [address] Ryann Pearce MG MAMM SCREEN 3D KRISTINA CADon 05-11-2022 MG MAMM SCREEN 3D KRISTINA CAD Patient: BILLIE YEBOAH Exam Date: 05/11/2022 : 1945 Gender:F Ordering : DR GISELLA PORTER . Admission #: [id number] Family : Order #: [id number] CLICK HERE TO VIEW EXAM RADIOLOGY REPORT [...] breast cancer at age 80. LOCATION: [facility] BREAST COMPOSITION: Scattered areas fibroglandular density. FINDINGS: [...] MD on 05/11/2022 at 12:45 Normal [facility] XR knee RT 2Von 03-16-2022 XR knee RT 2V [address] [address] XRay Report Signed Patient: Billie Yeboah MR#: [id number] : 1945 Acct:[id number] Age/Sex: 76 / F ADM Date: 03/16/22 Loc: [facility] Room: Type: REG CLI Attending Dr: Sydney Erickson II, MD Copies [...] COMPLICATION. Impression dictated by: Migue Groves Jr., D.OSun03/16/2022 4:22 PM Dictation Location: [place] [address] Transcribed By: [facility] 03/16/22 162 Dictated By: Migue Groves Jr, DO 03/16/22 1622 Signed By: 03/16/22 1622 Normal [facility] XR tibia fibula RT 2V*on XR tibia fibula RT 2V* [address] [address] XRay Report Signed Patient: Billie Yeboah MR#: [id number] : 1945 Acct:[id number] Age/Sex: 76 / F ADM Date: 03/16/22 [facility] Room: Type: REG CLI Attending Dr: Sydney Erickson II, MD Copies to: Sydney Erickson MD Ordering Provider: Sydney Erickson MD Date of Service: 03/16/22 XR/XR tibia fibula RT 2V*: History of total right knee replacement ([id number]) XR/XR femur RT 2V*: History of total [...] Judit Nuno M.D.03/16/2022 4:32 PM Dictation Location: [place] [address] Transcribed By: [facility] 03/16/22 1632 Dictated By: Judit Nuno MD 03/16/22 1630 Signed By: 03/16/22 1632 [facility] CBC AUTO DIFFon 02-21-2022 BASO # 0.0 103/ul Normal 0.0-0.1 [facility] Comment on above: Performed By: #### NIKI MORALES #### [facility] [address] [place] [address] Dr. Ryann Pearce Basophils/100 WBC (Bld) 0.5 % Normal 0.2-2.0 [facility] Comment on above: Performed By: #### NIKI MORALES #### [facility] [address] [place] [address] Dr. Ryann Pearce EO # 0.2 103/ul Normal 0.0-0.7 [facility] Comment on above: Performed By: #### NIKI MORALES #### [facility] [address] [place] [address] Dr. Ryann Pearce Eosinophils/100 WBC (Bld) 3.9 % Normal 0.9-7.0 [facility] Comment on above: Performed By: #### NIKI MORALES #### [facility] [address] [place] [address] Dr. Ryann Pearce Erythrocyte distribution width (RBC) [Ratio] 12.8 % Normal 11.0-15.0 [facility] Comment on above: Performed By: #### I WIL, VITAD #### [facility] [address] [place] [address] Dr. Ryann Pearce Hematocrit (Bld) [Volume fraction] 36.5 % Normal 36.0-48.0 [facility] Comment on above: Performed By: #### I WIL, VITAD #### [facility] [address] [place] [address] Dr. Ryann Pearce Hemoglobin (Bld) [Mass/Vol] 11.9 g/dL Critically low 12.0-16.0 [facility] Comment on above: Performed By: #### I WIL, VITAD #### [facility] [address] [place] [address] Dr. Ryann Pearce IG # 0.01 10e3/ul Normal 0.00-0.03 [facility] Comment on above: Performed By: #### Colin DE LA TORRE VITAD #### [facility] [address] [place] [address] Dr. Ryann Pearce IG % 0.2 % Normal 0.0-0.5 [facility] Comment on above: Performed By: #### I WIL VITAD #### [facility] [address] [place] [address] Dr. Ryann Pearce LYMPH # 1.1 103/ul Critically low 1.2-3.8 [facility] Comment on above: Performed By: #### I WIL, VITAD #### [facility] [address] [place] [address] Dr. Ryann Pearce Lymphocytes/100 WBC (Bld) 25.5 % Normal 20.5-60.0 [facility] Comment on above: Performed By: #### I WIL, VITAD #### [facility] [address] [place] [address] Dr. Ryann Pearce MANUAL DIFF REQ NO Normal [facility] Comment on above: Performed By: #### I WIL, VITAD #### [facility] [address] [place] [address] Dr. Ryann Pearce MCH (RBC) [Entitic mass] 29.6 pg Normal 26.7-34.0 [facility] Comment on above: Performed By: #### I WIL, VITAD #### [facility] [address] [place] [address] Dr. Ryann Pearce MCHC (RBC) [Mass/Vol] 32.6 g/dL Normal 29.9-35.2 [facility] Comment on above: Performed By: #### I WIL, VITAD #### [facility] [address] [place] [address] Dr. Ryann Pearce MCV (RBC) [Entitic vol] 90.8 fL Normal 81.0-99.0 [facility] Comment on above: Performed By: #### Colin DE LA TORRE, VITAD #### [facility] [address] [place] [address] Dr. Ryann Pearce MONO # 0.4 103/ul Normal 0.3-0.8 [facility] Comment on above: Performed By: #### Colin DE LA TORRE, VITAD #### [facility] [address] [place] [address] Dr. Ryann Pearce Monocytes/100 WBC (Bld) 10.4 % Normal 1.7-12.0 [facility] Comment on above: Performed By: #### Colin DE LA TORRE, VITAD #### [facility] [address] [place] [address] Dr. Ryann Pearce NEUT # 2.5 103/ul Normal 1.4-6.5 [facility] Comment on above: Performed By: #### Colin DE LA TORRE, VITAD #### [facility] [address] [place] [address] Dr. Ryann Pearce Neutrophils/100 WBC (Bld) 59.5 % Normal 43.0-75.0 [facility] Comment on above: Performed By: #### Colin DE LA TORRE, VITAD #### [facility] [address] [place] [address] Dr. Ryann Pearce Platelet mean volume (Bld) [Entitic vol] 9.1 fL Critically low 9.5-13.5 [facility] Comment on above: Performed By: #### I WIL, VITAD #### [facility] [address] [address] [address] Ryann Pearce PLT 283 103/ul Normal 150-450 [facility] Comment on above: Performed By: #### I WIL, VITAD #### [facility] [address] [place] [address] Dr. Ryann Pearce RBC 4.02 106/ul Critically low 4.20-5.40 [facility] Comment on above: Performed By: #### I WIL, VITAD #### [facility] [address] [place] [address] Dr. Ryann Pearce WBC 4.2 103/ul Normal 4.0-11.0 [facility] Comment on above: Performed By: #### I WIL, VITAD #### [facility] [address] [place] [address] Dr. Ryann Pearce PROF 14(COMP METB)on 022 Albumin [Mass/Vol] 3.5 g/dL Normal 3.4-5.0 [facility] Comment on above: Performed By: #### I WIL VITAD #### [facility] [address] [place] [address] Dr. Ryann Pearce Albumin/Globulin [Mass ratio] 1.0 {ratio} Normal [facility] Comment on above: Performed By: #### Colin DE LA TORRE VITAD #### [facility] [address] [place] [address] Dr. Ryann Pearce ALP [Catalytic activity/Vol] 68 U/L Normal 46-116 [facility] Comment on above: Performed By: #### I WIL, VITAD #### [facility] [address] [place] [address] Dr. Ryann Pearce ALT [Catalytic activity/Vol] 22 U/L Normal 14-59 [facility] Comment on above: Performed By: #### I WIL, VITAD #### [facility] [address] [place] [address] Dr. Ryann Pearce Anion gap [Moles/Vol] 11.8 mmol/L Normal [facility] Comment on above: Performed By: #### I WIL, VITAD #### [facility] [address] [place] [address] Dr. Ryann Pearce AST [Catalytic activity/Vol] 21 U/L Normal 15-37 [facility] Comment on above: Performed By: #### I WIL, VITAD #### [facility] [address] [place] [address] Dr. Ryann Pearce Bilirubin [Mass/Vol] 0.5 mg/dL Normal 0.2-1.0 [facility] Comment on above: Performed By: #### I WIL VITAD #### [facility] [address] [place] [address] Dr. Ryann Pearce Calcium [Mass/Vol] 8.9 mg/dL Normal 8.5-10.1 [facility] Comment on above: Performed By: #### Colin DE LA TORRE VITAD #### [facility] [address] [place] [address] Dr. Ryann Pearce Chloride [Moles/Vol] 104 mmol/L Normal 98-107 [facility] Comment on above: Performed By: #### I WIL VITAD #### [facility] [address] [place] [address] Dr. Ryann Pearce CO2 [Moles/Vol] 29.1 mmol/L Normal 21.0-32.0 [facility] Comment on above: Performed By: #### Colin DE LA TORRE VITAD #### [facility] [address] [place] [address] Dr. Ryann Pearce Creatinine [Mass/Vol] 0.66 mg/dL Normal 0.55-1.02 [facility] Comment on above: Performed By: #### I WIL VITAD #### [facility] [address] [place] [address] Dr. Ryann Pearce EGFR-AF NEPALESE >60 Normal >=60 [facility] Comment on above: Performed By: #### I WIL VITAD #### [facility] [address] [place] [address] Dr. Ryann Pearce EGFR-NON AF NEPALESE >60 Normal >=60 [facility] Comment on above: Performed By: #### I WIL, VITAD #### [facility] [address] [place] [address] Dr. Ryann Pearce Globulin (S) [Mass/Vol] 3.4 g/dL Normal [facility] Comment on above: Performed By: #### I WIL, VITAD #### [facility] [address] [place] [address] Dr. Ryann Pearce Glucose [Mass/Vol] 106 mg/dL Normal 74-106 [facility] Comment on above: Performed By: #### I WIL, VITAD #### [facility] [address] [place] [address] Dr. Ryann Pearce Potassium [Moles/Vol] 3.9 mmol/L Normal 3.5-5.1 [facility] Comment on above: Performed By: #### Colin DE LA TORRE VITAD #### [facility] [address] [place] [address] Dr. Ryann Pearce Protein [Mass/Vol] 6.9 g/dL Normal 6.4-8.2 [facility] Comment on above: Performed By: #### Colin DE LA TORRE VITAD #### [facility] [address] [place] [address] Dr. Ryann Pearce Sodium [Moles/Vol] 141 mmol/L Normal 136-145 [facility] Comment on above: Performed By: #### Colin DE LA TORRE VITAD #### [facility] [address] [place] [address] Dr. Ryann Pearce Urea nitrogen [Mass/Vol] 14.0 mg/dL Normal 7.0-18.0 [facility] Comment on above: Performed By: #### Colin DE LA TORRE VITAD #### [facility] [address] [place] [address] Dr. Ryann Pearce Urea nitrogen/Creatinine [Mass ratio] 21.2 mg/mg Normal [facility] Comment on above: Performed By: #### Colin DE LA TORRE VITAD #### [facility] [address] [place] [address] Dr. Ryann Pearce XR knee RT 3Von 02-02-[address] XR knee RT [address] [facility] [employer] Other XR knee RT [facility] [place] Main [facility] [employer] Other XR knee RT 3V 1111 [facility] [employer] Other XR knee RT 3[place] [address] [facility] [employer] Other XR knee RT 3V XRay Report [employer] Other XR knee RT 3V Signed [employer] Other XR knee RT 3V Patient: Billie Yeboah MR#: [id number] [employer] Other XR knee RT 3V [id number] [employer] Other XR knee RT 3V : 1945 Acct:[id number] [employer] Other XR knee RT 3V Age/Sex: 76 / F ADM Date: 02/02/22 [employer] Other XR knee RT 3V Loc: SOX Room: Type: [facility] [employer] Other XR knee RT 3V Attending Dr: Sydney Erickson II, MD [employer] Other XR knee RT 3V Copies to: Sydney Erickson MD [employer] Other XR knee RT 3V Ordering Provider: Sydney Erickson MD [employer] Other XR knee RT 3V Date of Service: 02/02/22 [employer] Other XR knee RT 3V XR/XR knee RT 3V - NOT FOR ER USE: History of total right knee [employer] Other XR knee RT 3V replacement [employer] Other XR knee RT 3V RIGHT KNEE - 3 views N [employer] Other XR knee RT 3V CLINICAL HISTORY: Follow-up right total knee arthroplasty [employer] Other XR knee RT 3V COMPARISON: Right knee 12/20/2021 [employer] Other XR knee RT 3V FINDINGS: [employer] Other XR knee RT 3V Right knee prosthesis without radiographic complication. No acute bony process. [employer] Other XR knee RT 3V XR/XR knee RT 3V - NOT FOR ER USE [employer] Other XR knee RT 3V IMPRESSION: [employer] Other XR knee RT 3V NO EVIDENCE OF HARDWARE COMPLICATION. [employer] Other XR knee RT 3V Impression dictated by: Migue Groves Jr., D.OSun02/02/2022 4:27 PM [employer] Other XR knee RT 3V Dictation Location: [place] [address] [employer] Other XR knee RT 3V Transcribed By: PWS 02/02/22 [facility] [employer] Other XR knee RT 3V Dictated By: Migue Groves Jr, DO 02/02/22 [facility] [employer] Other XR knee RT 3V Signed By: [employer] Other XR knee RT 3V 02/02/22 [facility] [employer] Other XR knee RT 3V - NOT FOR ER U Jeimy 02-02-2022 XR knee RT 3V - NOT FOR ER USE [facility] [employer] [address] [place] [id number] XRay Report Signed Patient: Billie Yeboah MR#: [id number] : 1945 Acct:[id number] Age/Sex: 76 / F ADM Date: 02/02/22 Loc: SOXD Room: Type: [facility] Attending Dr: Sydney Erickson II, MD Copies [...] Groves Jr., D.OSun02/02/2022 4:27 PM Dictation Location: [place] [address] Transcribed By: [facility] 02/02/221626 Dictated By: Migue Groves Jr, DO 02/02/221625 Signed By: 02/02/221626 Normal [facility] COVID-19 Positive/NegativeOr dered By: Sydney Erickson on 12-17-2021 SARS-CoV-2 (COVID-19) N gene BRAULIO+probe Ql (Resp) Negative Negative [facility] Comment on above: Testing for SARS-CoV -2 by RT-PCR This test was developed and its performance characteristics determined by [employer] ([employer] and validated at the [facility]. This test has not been FDA cleared [...] Auto (Urine sed) [#/Area] 1-2 [HPF] 0-4 [facility] Automated leukocytes count i n urine sediment (number/area)Ordered By: Sydney Erickson on 12-07-2021 WBC Auto (Urine sed) [#/Area] None seen [HPF] 0-4 [facility] Basophils Auto (Bld) [#/Vol] Ordered By: Sydney Erickson on 12-07-2021 Basophils (Bld) [#/Vol] 0.0 10*3/uL 0.0-0.2 [facility] Basophils/100 WBC Auto (Bld) Ordered By: Sydney Erickson on 12-07-2021 Basophils/100 WBC (Bld) 0.9 % . [facility] Bilirubin Test strip Ql (U)O rdered By: Sydney Erickson on 12-07-2021 Bilirubin Ql (U) Negative Negative [facility] Blood hemoglobin measurement (mass/volume)Ordered By: Sydney Erickson on 12-07-2021 Hemoglobin (Bld) [Mass/Vol] 13.1 g/dL 11.8-15.4 [facility] Blood leukocytes automated c ount (number/volume)Ordered By: Sydney Erickson on 12-07-2021 WBC (Bld) [#/Vol] 3.8 10*3/uL 4.5-11.0 [facility] CT biopsyOrdered By: Sydney Erickson on 12-07-2021 CT biopsy 241 umol/L 0-285 [facility] Comment on above: Published reference interval for apparently healthy subjects between age 20 and 60 is 205 - 285 umol/L and in a poorly controlled diabetic population is 228 - 563 umol/L with a mean of 396 umol/L. Performed at: [facility] [address] [id number] [employer] Operator: Fortunato Garcia PhD, Phone: [phone] Color Auto (U)Ordered By: Xuan Erickson on 12-07-2021 Color (U) Yellow Yellow [facility] Creatinine and Glomerular fi ltration rate.predicted panel (S/P/Bld)Ordered By: Sydney Erickson on 12-07-2021 Creatinine [Mass/Vol] 0.86 mg/dL 0.44-1.03 [facility] Eosinophils Auto (Bld) [#/Vo l]Ordered By: Sydney Erickson on 12-07-2021 Eosinophils (Bld) [#/Vol] 0.1 10*3/uL 0.0-0.45 [facility] Eosinophils/100 WBC Auto (Bl d)Ordered By: Sydney Erickson on 12-07-2021 Eosinophils/100 WBC (Bld) 2.4 % . [facility] Erythrocyte distribution wid th Auto (RBC) [Ratio]Ordered By: Sydney Erickson on 12-07-2021 Erythrocyte distribution width (RBC) [Ratio] 12.5 % 11.9-15.3 [facility] Estimated glomerular filtrat ion rate (GFR) non- AmericanOrdered By: Sydney Erickson on 12-07-2021 GFR/1.73 sq M.predicted among non-blacks MDRD (S/P/Bld) [Vol rate/Area] > 60 mL/Min [facility] Hematocrit Auto (Bld) [Volum e fraction]Ordered By: Sydney Erickson on 12-07-2021 Hematocrit (Bld) [Volume fraction] 39.0 % 34.0-46.4 [facility] Ketones Auto test strip (U) [Mass/Vol]Ordered By: Sydney Erickson on 12-07-2021 Ketones (U) [Mass/Vol] Negative Negative [facility] - Hematology and Cell countsOrdered By: Sydney Erickson on 12-07-2021 Nucleated RBC/100 WBC (Bld) [Ratio] 0.0 % 0-0.5 [facility] - UrinalysisOrder ed By: Sydney Erickson on 12-07-2021 Hyaline casts LM Ql (Urine sed) None seen [LPF] 0-8 [facility] Lymphocytes Auto (Bld) [#/Vo l]Ordered By: Sydney Erickson on 12-07-2021 Lymphocytes (Bld) [#/Vol] 1.0 10*3/uL 1.00-4.8 [facility] Lymphocytes/100 WBC Auto (Bl d)Ordered By: Sydney Erickson on 12-07-2021 Lymphocytes/100 WBC (Bld) 26.7 % . [facility] MCH Auto (RBC) [Entitic mass ]Ordered By: Sydney Erickson on 12-07-2021 MCH (RBC) [Entitic mass] 29.7 pg 24.7-34.3 [facility] MCHC Auto (RBC) [Mass/Vol]Or dered By: Sydney Erickson on 12-07-2021 MCHC (RBC) [Mass/Vol] 33.5 g/dL 32.0-35.0 Fir [facility] MCV Auto (RBC) [Entitic vol] Ordered By: Sydney Erickson on 12-07-2021 MCV (RBC) [Entitic vol] 88.7 fL 80-100 [facility] Monocytes Auto (Bld) [#/Vol] Ordered By: Sydney Erickson on 12-07-2021 Monocytes (Bld) [#/Vol] 0.4 10*3/uL 0.0-0.8 [facility] Monocytes/100 WBC Auto (Bld) Ordered By: Sydney Erickson on 12-07-2021 Monocytes/100 WBC (Bld) 11.1 % . [facility] Neutrophils Auto (Bld) [#/Vo l]Ordered By: Sydney Erickson on 12-07-2021 Neutrophils (Bld) [#/Vol] 2.2 10*3/uL 1.8-7.7 [facility] Neutrophils/100 WBC Auto (Bl d)Ordered By: Sydney Erickson on 12-07-2021 Neutrophils/100 WBC (Bld) 58.9 % . [facility] Nitrite Test strip Ql (U)Ord ered By: Sydney Erickson on 12-07-2021 Nitrite Ql (U) Negative Negative [facility] No Panel InformationOrdered By: Sydney Erickson on 12-07-2021 Estimated GFR () > 60 mL/Min [facility] Comment on above: GFR estimated refere nce range: According to KDOQI guidelines, <60 ml/min/1.73m2 is sufficient to diagnose a patient with chronic kidney disease. Pharmacy Creatinine Clearance (Chem N/A [facility] Platelet mean volume Auto (B ld) [Entitic vol]Ordered By: Sydney Erickson on 12-07-2021 Platelet mean volume (Bld) [Entitic vol] 8.2 fL 6.3-10.7 [facility] Platelets Auto (Bld) [#/Vol] Ordered By: Sydney Erickson on 12-07-2021 Platelets (Bld) [#/Vol] 274 10*3/uL 150-450 [facility] Protein Auto test strip (U) [Mass/Vol]Ordered By: Sydney Erickson on 12-07-2021 Protein (U) [Mass/Vol] Negative Negative [facility] RBC Auto (Bld) [#/Vol]Ordere d By: Sydney Erickson on 12-07-2021 RBC (Bld) [#/Vol] 4.40 10*6/uL 3.60-5.00 [facility] Serum or plasma calcium catalino urement (mass/volume)Ordered By: Sydney Erickson on 12-07-2021 Calcium [Mass/Vol] 9.3 mg/dL 8.2-10.2 [facility] Serum or plasma chloride juan surement (moles/volume)Ordered By: Sydney Erickson on 12-07-2021 Chloride [Moles/Vol] 99 mmol/L 95-114 [facility] Serum or plasma glucose catalino urement (mass/volume)Ordered By: Sydney Erickson on 12-07-2021 Glucose [Mass/Vol] 94 mg/dL 70-100 [facility] Comment on above: ADA recommended refe rence range Random Glucose Reference Range is dependent on time and content of last meal. Glucose of more than 200 mg/dL in a nonstressed, ambulatory subject supports the diagnosis of Diabetes Mellitus. Serum or plasma potassium me asurement (moles/volume)Ordered By: Sydney Erickson on 12-07-2021 Potassium [Moles/Vol] 4.4 mmol/L 3.5-5.1 [facility] Serum or plasma sodium measu rement (moles/volume)Ordered By: Sydney Erickson on 06-14-2022 Sodium [Moles/Vol] 139 mmol/L 136-146 [facility] Serum or plasma total carbon dioxide measurement (moles/volume)Ordered By: Sydney Erickson on 12-07-2021 CO2 [Moles/Vol] 26.7 mmol/L 22.0-30.0 [facility] Serum or plasma urea nitroge n measurement (mass/volume)Ordered By: Sydney Erickson on 12-07-2021 Urea nitrogen [Mass/Vol] 14 mg/dL 9-23 [facility] Specific gravity Auto test s trip (U) [Rel density]Ordered By: Sydney Erickson on 12-07-2021 Specific gravity (U) [Rel density] 1.010 1.001-1.030 [facility] Squamous epithelial cells de tection in urine sediment by light microscopyOrdered By: Sydney Erickson on 12-07-2021 Epithelial cells.squamous LM Ql (Urine sed) None seen [HPF] 0-2 [facility] Urine bacteria detection by automated methodOrdered By: Sydney Erickson on 12-07-2021 Bacteria Auto Ql (U) None seen None Seen [facility] Urine clarity by refractomet ry automatedOrdered By: Sydney Erickson on 12-07-2021 Clarity Refractometry automated (U) Clear Clear [facility] Urine glucose measurement by automated test strip (mass/volume)Ordered By: Sydney Erickson on 12-07-2021 Glucose Auto test strip (U) [Mass/Vol] Normal mg/dL Normal [facility] Urine hemoglobin detection b y automated test stripOrdered By: Sydney Erickson on 12-07-2021 Hemoglobin Auto test strip Ql (U) Negative Negative [facility] Urine leukocyte esterase det ection by automated test stripOrdered By: Sydney Erickson on 12-07-2021 Leukocyte esterase Auto test strip Ql (U) 1+ Negative [facility] Urobilinogen Auto test strip (U) [Mass/Vol]Ordered By: Sydney Erickson on 12-07-2021 Urobilinogen (U) [Mass/Vol] Normal mg/dL Normal [facility] pH Auto test strip (U)Ordere d By: Sydney Erickson on 12-07-2021 pH (U) 7.5 [pH] 5.0-9.0 [facility] CBC AUTO DIFFon 09-01-2021 BASO # 0.0 103/ul Normal 0.0-0.1 [facility] Comment on above: Performed By: #### I WIL, VITAD #### [facility] [address] [place] [address] Dr. Ryann Pearce Basophils/100 WBC (Bld) 0.8 % Normal 0.2-2.0 [facility] Comment on above: Performed By: #### I WIL, VITAD #### [facility] [address] [place] [address] Dr. Ryann Pearce EO # 0.2 103/ul Normal 0.0-0.7 [facility] Comment on above: Performed By: #### Colin DE LA TORRE, VITAD #### [facility] [address] [place] [address] Dr. Ryann Pearce Eosinophils/100 WBC (Bld) 4.1 % Normal 0.9-7.0 [facility] Comment on above: Performed By: #### Colin DE LA TORRE VITAD #### [facility] [address] [place] [address] Dr. Ryann Pearce Erythrocyte distribution width (RBC) [Ratio] 12.5 % Normal 11.0-15.0 [facility] Comment on above: Performed By: #### Colin DE LA TORRE, VITAD #### [facility] [address] [place] [address] Dr. Ryann Pearce Hematocrit (Bld) [Volume fraction] 37.6 % Normal 36.0-48.0 [facility] Comment on above: Performed By: #### Colin DE LA TORRE, VITAD #### [facility] [address] [place] [address] Dr. Ryann Pearce Hemoglobin (Bld) [Mass/Vol] 12.3 g/dL Normal 12.0-16.0 [facility] Comment on above: Performed By: #### Colin DE LA TORRE, VITAD #### [facility] [address] [place] [address] Dr. Ryann Pearce IG # 0.02 10e3/ul Normal 0.00-0.03 [facility] Comment on above: Performed By: #### I WIL, VITAD #### [facility] [address] [place] [address] [address] Ryann Pearce IG % 0.5 % Normal 0.0-0.5 [facility] Comment on above: Performed By: #### I WIL, VITAD #### [facility] [address] [place] [address] [address] Ryann Pearce LYMPH # 1.1 103/ul Critically low 1.2-3.8 [facility] Comment on above: Performed By: #### I WIL, VITAD #### [facility] [address] [place] [address] Dr. Ryann Pearce Lymphocytes/100 WBC (Bld) 29.0 % Normal 20.5-60.0 [facility] Comment on above: Performed By: #### Colin DE LA TORRE, VITAD #### [facility] [address] [place] [address] Dr. Ryann Pearce MANUAL DIFF REQ NO Normal [facility] Comment on above: Performed By: #### I WIL, VITAD #### [facility] [address] [place] [address] Dr. Ryann Pearce MCH (RBC) [Entitic mass] 30.5 pg Normal 26.7-34.0 [facility] Comment on above: Performed By: #### I WIL, VITAD #### [facility] [address] [place] [address] Dr. Ryann Pearce MCHC (RBC) [Mass/Vol] 32.7 g/dL Normal 29.9-35.2 [facility] Comment on above: Performed By: #### I WIL, VITAD #### [facility] [address] [place] [address] Dr. Ryann Pearce MCV (RBC) [Entitic vol] 93.3 fL Normal 81.0-99.0 [facility] Comment on above: Performed By: #### I WIL, VITAD #### [facility] [address] [place] [address] Dr. Ryann Pearce MONO # 0.5 103/ul Normal 0.3-0.8 [facility] Comment on above: Performed By: #### Colin DE LA TORRE VITAD #### [facility] [address] [place] [address] Dr. Ryann Pearce Monocytes/100 WBC (Bld) 13.1 % Critically high 1.7-12.0 [facility] Comment on above: Performed By: #### Colin DE LA TORRE VITAD #### [facility] [address] [place] [address] Dr. Ryann Pearce NEUT # 2.0 103/ul Normal 1.4-6.5 [facility] Comment on above: Performed By: #### Colin DE LA TORRE VITAD #### [facility] [address] [place] [address] Dr. Ryann Pearce Neutrophils/100 WBC (Bld) 52.5 % Normal 43.0-75.0 [facility] Comment on above: Performed By: #### Colin DE LA TORRE VITAD #### [facility] [address] [place] [address] Dr. Ryann Pearce Platelet mean volume (Bld) [Entitic vol] 9.0 fL Critically low 9.5-13.5 [facility] Comment on above: Performed By: #### Colin DE LA TORRE VITAD #### [facility] [address] [place] [address] Dr. Ryann Pearce PLT 229 103/ul Normal 150-450 [facility] Comment on above: Performed By: #### Colin DE LA TORRE VITAD #### [facility] [address] [place] [address] Dr. Ryann Pearce RBC 4.03 106/ul Critically low 4.20-5.40 [facility] Comment on above: Performed By: #### Colin DE LA TORRE VITAD #### [facility] [address] [place] [address] Dr. Ryann Pearce WBC 3.9 103/ul Critically low 4.0-11.0 [facility] Comment on above: Performed By: #### Colin DE LA TORRE VITAD #### [facility] [address] [place] [address] Dr. Ryann Pearce PROF 14(COMP METB)on 022 Albumin [Mass/Vol] 3.1 g/dL Critically low 3.5-5.0 [facility] Comment on above: Performed By: #### C MP #### [facility] [address] [place] [address] Dr. Ryann Pearce Albumin/Globulin [Mass ratio] 0.9 {ratio} Normal [facility] Comment on above: Performed By: #### C MP #### [facility] [address] [place] [address] Dr. Ryann Pearce ALP [Catalytic activity/Vol] 66 U/L Normal 38-126 [facility] Comment on above: Performed By: #### C MP #### [facility] [address] [place] [address] Dr. Ryann Pearce ALT [Catalytic activity/Vol] 28 U/L Normal 9-52 [facility] Comment on above: Performed By: #### C MP #### [facility] [address] [place] [address] Dr. Ryann Pearce Anion gap [Moles/Vol] 9.8 mmol/L Normal [facility] Comment on above: Performed By: #### C MP #### [facility] [address] [place] [address] Dr. Ryann Pearce AST [Catalytic activity/Vol] 22 U/L Normal 14-36 [facility] Comment on above: Performed By: #### C MP #### [facility] [address] [place] [address] Dr. Ryann Pearce Bilirubin [Mass/Vol] 0.5 mg/dL Normal 0.2-1.3 [facility] Comment on above: Performed By: #### C MP #### [facility] [address] [place] [address] Dr. yRann Pearce Calcium [Mass/Vol] 8.5 mg/dL Normal 8.4-10.2 [facility] Comment on above: Performed By: #### C MP #### [facility] [address] [place] [address] Dr. Ryann Pearce Chloride [Moles/Vol] 102 mmol/L Normal 98-107 [facility] Comment on above: Performed By: #### C MP #### [facility] [address] [place] [address] [address] Ryann Pearce CO2 [Moles/Vol] 31.7 mmol/L Critically high 22.0-30.0 [facility] Comment on above: Performed By: #### C MP #### [facility] [address] [place] [address] [address] Ryann Pearce Creatinine [Mass/Vol] 0.91 mg/dL Normal 0.52-1.04 [facility] Comment on above: Performed By: #### C MP #### [facility] [address] [place] [address] Dr. Ryann Pearce EGFR-AF NEPALESE >60 Normal >=60 [facility] Comment on above: Performed By: #### C MP #### [facility] [address] [place] [address] [address] Ryann Pearce EGFR-NON AF NEPALESE =60 Normal >=60 [facility] Comment on above: Performed By: #### C MP #### [facility] [address] [place] [address] [address] Ryann Pearce Globulin (S) [Mass/Vol] 3.3 g/dL Normal [facility] Comment on above: Performed By: #### C MP #### [facility] [address] [place] [address] [address] Ryann Pearce Glucose [Mass/Vol] 89 mg/dL Normal 74-106 [facility] Comment on above: Performed By: #### C MP #### [facility] [address] [place] [address] Dr. Ryann Pearce Potassium [Moles/Vol] 4.5 mmol/L Normal 3.4-5.0 [facility] Comment on above: Performed By: #### C MP #### [facility] [address] [address] [address] Ryann Pearce Protein [Mass/Vol] 6.4 g/dL Normal 6.1-8.2 [facility] Comment on above: Performed By: #### C MP #### [facility] [address] [address] [address] Ryann Pearce Sodium [Moles/Vol] 139 mmol/L Normal 137-145 [facility] Comment on above: Performed By: #### C MP #### [facility] [address] [address] [address] Ryann Pearce Urea nitrogen [Mass/Vol] 14.0 mg/dL Normal 7.0-17.0 [facility] Comment on above: Performed By: #### C MP #### [facility] [address] [address] [address] Ryann Pearce Urea nitrogen/Creatinine [Mass ratio] 15.4 mg/mg Normal [facility] Comment on above: Performed By: #### C MP #### [facility] [address] [address] [address] Ryann Pearce Vital Signs Date Time Vital Sign Value Performing Clinician Facility 02-28-2024 14:29-0400 Body height 167.6 cm Pacc 2 Work Phone: [facility] 02-28-2024 14:29-0400 Body mass index (BMI) [Ratio] 23.77 kg/m2 Pacc 2 Work Phone: [facility] 02-28-2024 14:29-0400 Body temperature 97.7 [degF] Pacc 2 Work Phone: [facility] 02-28-2024 14:29-0400 Body weight 66.8 kg Pacc 2 Work Phone: [facility] 02-28-2024 14:29-0400 Diastolic blood pressure 82 mm[Hg] Pacc 2 Work Phone: [facility] 02-28-2024 14:29-0400 Heart rate 120 /min Pacc 2 Work Phone: [facility] 02-28-2024 14:29-0400 Respiratory rate 18 /min Pacc 2 Work Phone: [facility] 02-28-2024 14:29-0400 SaO2% (BldA) [Mass fraction] 97 % Pac 2 Work Phone: [facility] 02-28-2024 14:29-0400 Systolic blood pressure 140 mm[Hg] Pac 2 Work Phone: [facility] 02-23-2024 14:03-0400 Body height 167.6 cm Funmilayo Odell MD Work Phone: [facility] 02-23-2024 14:03-0400 Body mass index (BMI) [Ratio] 23.08 kg/m2 Funmilayo Odell MD Work Phone: [facility] 02-23-2024 14:03-0400 Body temperature 97.5 [degF] Funmilayo Odell MD Work Phone: [facility] 02-23-2024 14:03-0400 Body weight 64.86 kg Funmilayo Odell MD Work Phone: [facility] Comment on above: per pt. 02-23-2024 14:03-0400 Diastolic blood pressure 83 mm[Hg] Funmilayo Odell MD Work Phone: [facility] 02-23-2024 14:03-0400 Heart rate 103 /min Funmilayo Odell MD Work Phone: [facility] 02-23-2024 14:03-0400 SaO2% (BldA) [Mass fraction] 94 % Funmilayo Odell MD Work Phone: [facility] 02-23-2024 14:03-0400 Systolic blood pressure 134 mm[Hg] Funmilayo Odell MD Work Phone: [facility] 11-03-2023 14:18-0400 Body temperature 97.11 [degF] Funmilayo Odell MD Work Phone: [facility] 11-03-2023 14:18-0400 Diastolic blood pressure 87 mm[Hg] Funmilayo Odell MD Work Phone: [facility] 11-03-2023 14:18-0400 Heart rate 85 /min Funmilayo Odell MD Work Phone: [facility] 11-03-2023 14:18-0400 SaO2% (BldA) [Mass fraction] 98 % Funmilayo Odell MD Work Phone: [facility] 11-03-2023 14:18-0400 Systolic blood pressure 179 mm[Hg] Funmilayo Odell MD Work Phone: [facility] 12-07-2022 10:00-0400 Body height 165.1 cm Ivette Calvgabriella Other [employer] Other 12-07-2022 10:00-0400 Body mass index (BMI) [Ratio] 24.96 kg/m2 [employer] Other [employer] Other 12-07-2022 10:00-0400 Body weight 68.04 kg [employer] Other [employer] Other 10-27-2022 13:59-0400 Diastolic blood pressure 74 mm[Hg] Funmilayo Odell MD Work Phone: [facility] 10-27-2022 13:59-0400 Heart rate 98 /min Funmilayo Odell MD Work Phone: [facility] 10-27-2022 13:59-0400 SaO2% (BldA) [Mass fraction] 96 % Funmilayo Odell MD Work Phone: [facility] 10-27-2022 13:59-0400 Systolic blood pressure 137 mm[Hg] Funmilayo Odell MD Work Phone: [facility] 09-21-2022 11:31-0400 Diastolic blood pressure 90 mm[Hg] MD Gisella Porter Work Phone: [facility] 09-21-2022 11:31-0400 Heart rate 94 /min MD Gisella Porter Work Phone: [facility] 09-21-2022 11:31-0400 Respiratory rate 18 /min MD Gisella Porter Work Phone: [facility] 09-21-2022 11:31-0400 SaO2% (BldA) [Mass fraction] 98 % MD Gisella Porter Work Phone: [facility] 09-21-2022 11:31-0400 Systolic blood pressure 146 mm[Hg] MD Gisella Porter Work Phone: [facility] 09-21-2022 10:09-0400 Body height 167.64 cm MD Gisella Porter Work Phone: [facility] 09-21-2022 10:09-0400 Body temperature 98.7 [degF] MD Gisella Porter Work Phone: [facility] 09-21-2022 10:09-0400 Body weight 64.41 kg MD Gisella Porter Work Phone: [facility] 01-05-2022 14:45-0400 Body height 165.1 cm [employer] Other [employer] Other 01-05-2022 14:45-0400 Body mass index (BMI) [Ratio] 22.96 kg/m2 [employer] Other [employer] Other 01-05-2022 14:45-0400 Body weight 62.6 kg [employer] Other [employer] Other 12-20-2021 12:31-0400 Diastolic blood pressure 94 mm[Hg] MD Gisella Porter Work Phone: [facility] 12-20-2021 12:31-0400 Heart rate 78 /min MD Gisella Porter Work Phone: [facility] 12-20-2021 12:31-0400 Respiratory rate 16 /min MD Gisella Porter Work Phone: [facility] 12-20-2021 12:31-0400 SaO2% (BldA) [Mass fraction] 99 % MD Gisella Porter Work Phone: [facility] 12-20-2021 12:31-0400 Systolic blood pressure 172 mm[Hg] MD Gisella Porter Work Phone: [facility] 12-20-2021 09:35-0400 Body temperature 97.8 [degF] MD Gisella Porter Work Phone: [facility] 12-20-2021 09:35-0400 Inhaled oxygen flow rate 6 L/min MD Gisella Porter Work Phone: [facility] 12-20-2021 08:23-0400 Body height 167.64 cm MD Gisella Porter Work Phone: [facility] 12-20-2021 08:23-0400 Body mass index (BMI) [Ratio] 23.8 kg/m2 MD Gisella Porter Work Phone: [facility] 12-20-2021 08:23-0400 Body weight 67 kg MD Gisella Porter Work Phone: [facility] 11-10-2021 10:45-0400 Body height 165.1 cm [employer] Other [employer] Other 11-10-2021 10:45-0400 Body mass index (BMI) [Ratio] 23.13 kg/m2 Sydney Darek II Other [employer] Other 11-10-2021 10:45-0400 Body weight 63.05 kg Sydney Merrimack II Other [employer] Other 04-20-2021 11:45-0400 Body height 165.1 cm Manoj Forbes Other [employer] Other 04-20-2021 11:45-0400 Body mass index (BMI) [Ratio] 23.13 kg/m2 Manoj Forbes Other [employer] Other 04-20-2021 11:45-0400 Body weight 63.05 kg Manoj Forbes Other [employer] Other 04-20-2021 11:45-0400 Diastolic blood pressure 106 mm[Hg] Manoj Forbes Other [employer] Other 04-20-2021 11:45-0400 Systolic blood pressure 155 mm[Hg] Manoj Forbes Other [employer] Other Encounters Encounter Date Encounter Type Care Provider Facility Start: 03-19-2024 End: 03-19-2024 Evaluation and management of inpatient FUNMILAYO ODELL Facility:[facility] Start: 02-28-2024 End: 02-28-2024 [facility] Work Phone: Pre [facility] Start: 02-28-2024 End: 02-28-2024 Patient encounter procedure Pac 2 Work Phone: Pre Anesthesia Comment on above: Preoperative examina tion (Primary Dx); BRBPR (bright red blood per rectum); Rectal prolapse; Tachycardia; Hypothyroidism, unspecified type; Osteoarthritis of both hands, unspecified osteoarthritis type; Hyperlipidemia, unspecified hyperlipidemia type; Neuropathy of both feet; Irritable bowel syndrome with diarrhea; Urinary tract infection without hematuria, site unspecified Start: 02-28-2024 End: 02-28-2024 Preprocedural examination done Pac 2 Work Phone: [facility] Work Phone: Start: 02-28-2024 End: 02-28-2024 ambulatory ZAIDA CHRISTIE Facility:[facility] Start: 02-28-2024 Encounter for other preprocedural examination FUNMILAYO ODELL [facility] Start: 02-23-2024 End: 02-23-2024 ambulatory MANOJ FORBES Facility:[facility] Start: 02-23-2024 End: 02-23-2024 Patient encounter procedure Funmilayo Odell MD Work Phone: Colorectal Surgery Comment on above: Hemorrhoids, unspeci fied hemorrhoid type (Primary Dx) Start: 11-03-2023 End: 11-03-2023 ambulatory MANOJ FORBES Facility:[facility] Start: 11-03-2023 End: 11-03-2023 Patient encounter procedure Funmilayo Odell MD Work Phone: Colorectal Surgery Comment on above: BRBPR (bright red bl ood per rectum) (Primary Dx); Hemorrhoids, unspecified hemorrhoid type; Pelvic floor dysfunction Start: 10-11-2023 Telephone encounter Funmilayo arizmendi MD Work Phone: Colorectal Surgery Comment on above: Received Outside [facility] Records; Appointment Start: 04-10-2023 End: 04-10-2023 ambulatory Manoj Forbes Other [employer] Other Start: 04-10-2023 Telephone encounter Manoj MCNEIL [facility] Start: 01-04-2023 End: 01-04-2023 ambulatory Ivette Taylor Other [employer] Other Start: 01-04-2023 Office outpatient vi sit 15 minutes Ivettelatonya Taylor [facility] Start: 12-23-2022 End: 12-23-2022 ambulatory Sydney Erickson II Facility:[facility] Start: 12-23-2022 End: 12-23-2022 ambulatory MD Gisella Porter Work Phone: [facility] Work Phone: Start: 12-23-2022 End: 12-23-2022 Patient encounter procedure MD Gisella Porter Work Phone: [facility] Start: 12-07-2022 Office outpatient ne w 30 minutes Ivettelatonya Taylor [facility] Start: 12-07-2022 End: 12-07-2022 ambulatory Gisella Porter Facility:[facility] Start: 12-07-2022 End: 12-07-2022 ambulatory MD Gisella Porter Work Phone: [facility] Work Phone: Start: 12-07-2022 End: 12-07-2022 Patient encounter procedure MD Gisella Porter Work Phone: [facility] Start: 10-27-2022 End: 10-27-2022 Patient encounter procedure Funmilayo Odell MD Work Phone: Colorectal Surgery Comment on above: Hemorrhoids, unspeci fied hemorrhoid type (Primary Dx) Start: 09-22-2022 End: 09-22-2022 ambulatory Manoj Forbes Other [employer] Other Start: 09-22-2022 Telephone encounter Manoj [facility] Start: 09-21-2022 End: 09-21-2022 ambulatory Manoj Forbes Facility:[facility] Start: 09-21-2022 End: 09-21-2022 Admission to same day surgery center MD Gisella Porter Work Phone: [facility] Work Phone: Start: 09-21-2022 End: 09-21-2022 ambulatory MD Gisella Porter Work Phone: [facility] Work Phone: Start: 08-23-2022 End: 08-24-[address] DOCTOR MAHARAJ Facility:[facility] Start: 08-04-2022 End: 08-04-2022 ambulatory Manoj Forbes Other [employer] Other Start: 08-04-2022 Telephone encounter Manoj [facility] Start: 07-06-2022 End: 07-07-[address] GISELLA PORTER . Facility:[facility] Start: 06-06-2022 End: 06-07-[address] GISELLA PORTER . Facility:[facility] Start: 05-11-2022 End: 05-12-[address] GISELLA PORTER . Facility:[facility] Start: 04-04-2022 End: 04-04-2022 ambulatory Manoj Forbes Other [facility] Other Start: 04-04-2022 Telephone encounter Manoj Forbes [facility] Start: 03-16-2022 End: 03-16-2022 ambulatory Sydney M Darek II Facility:[facility] Start: 03-16-2022 End: 03-16-2022 Patient encounter procedure MD Gisella Porter Work Phone: [facility] Start: 02-23-2022 End: 02-23-2022 ambulatory Sydney M Darek II Facility:[facility] Start: 02-23-2022 End: 02-23-2022 Discharged Recurring MD Gisella Porter Work Phone: [facility]-Physical Therapy [facility] [place] Start: 02-21-2022 End: 02-22-[address] LITA HANSEN Facility:[facility] Start: 02-02-2022 (Post-Op) Post-Op Sydney Merrimack II [facility] Start: 02-02-2022 End: 02-02-2022 ambulatory Sydney M Merrimack II [facility] Other Start: 02-02-2022 End: 02-02-2022 Patient encounter procedure MD Gisella Porter Work Phone: [facility] Start: 01-05-2022 (Post-Op) Post-Op Sydney Darek II [facility] Start: 01-05-2022 End: 01-05-2022 ambulatory Sydney Merrimack II Other [facility] Other Start: 12-20-2021 End: 12-20-2021 Admission to same day surgery center MD Gisella Porter Work Phone: [facility]-Surgery Center [place] Start: 12-17-2021 End: 12-17-2021 Patient encounter procedure MD Gisella Porter Work Phone: [facility] Start: 12-10-2021 (Prolonged) Prolonge d Services Sydney Merrimack II [facility] Start: 12-10-2021 End: 12-10-2021 ambulatory Sydney Merrimack II Other [employer] Other Start: 12-10-2021 Telephone encounter Sydney Darek II [facility] Start: 12-07-2021 End: 12-07-2021 Patient encounter procedure MD Gisella Porter Work Phone: [facility]-Pre-Surgical Testing Start: 12-01-2021 End: 12-01-2021 ambulatory Sydney Merrimack II Other [employer] Other Start: 12-01-2021 Patient encounter procedure Sydney Darek II [facility] Start: 11-18-2021 Encounter for preprocedural cardiovascular examination SYDNEY ERICKSON [facility] Start: 11-12-2021 End: 11-13-2021 ambulatory SYDNEY DAREK Facility:[facility] Start: 11-12-2021 End: 11-13-2021 Encounter for preprocedural cardiovascular examination SYDNEY DAREK Facility:[facility] Start: 11-10-2021 End: 11-10-2021 ambulatory Sydney Darek II Other [employer] Other Start: 11-10-2021 Office outpatient vi sit 40 minutes Sydney Merrimack II [facility] Start: 09-01-2021 End: 09-02-[address] DOCTOR MAHARAJ Facility:[facility] Start: 08-13-2021 End: 08-13-2021 ambulatory Sydney Merrimack II Other [employer] Other Start: 08-13-2021 Office outpatient ne w 45 minutes Sydney Merrimack II [facility] Start: 04-20-2021 Patient encounter procedure Manoj Forbes [facility] Procedures Date Procedure Procedure Detail Performing [...] Author Start: 02-27-2027 Diabetes Screening Diabetes Screenin g [facility] Start: 03-19-2024 End: 03-19-2024 Admission to same day surgery center 03/19/2024 7:30 AM EDT - 03/19/2024 8:40 AM EDT Surgery [facility] Surgery [address] [place] [address] [place] [address] [place] [address] EXCISION RECTAL PROCIDENTIA W/ ANASTOMOSIS [facility] Surgery Comment on above: EXCISION RECTAL [...] physician 03/19/2024 7:30 AM EDT Hospital Encounter [facility] [address] [facility] [place] [address] [place] [address] [place], [place] [id number] BRBPR (bright red blood per rectum) [K62.5] [facility] Surgery Comment on above: BRBPR (bright red bl ood per rectum) [K62.5] Start: 02-25-2024 Covid-19 Vaccine ( season) Covid-19 Vaccine () [facility] Start: 02-25-2024 Influenza vaccination C [facility] Start: 06-26-2023 Advance Directive Discussion Advance Directive Discussion [facility] Start: 06-26-2023 Behavioral Health Screening Behavioral Health Screening [facility] Start: 02-24-2023 Covid-19 Vaccine ( season) Covid-19 Vaccine () [facility] Start: 02-24-2023 Influenza vaccination INFLUENZ A (Season Ended) [facility] Start: 09-21-2022 [facility] Start: 06-26-2022 ADVANCE DIRECTIVE DISCUSSION ADVANCE DIRECTIVE DISCUSSION [facility] Start: 06-26-2022 DEPRESSION ASSESSMENT DEPRESSION ASS ESSMENT [facility] Start: 12-20-2021 [facility] Work Phone: Start: 12-20-2021 [facility] Work Phone: Start: 06-16-2021 COVID-19 VACCINE (4 - Booster for Moderna series) COVID-19 VACCINE (4 - Booster for Moderna series) [facility] Start: 2010 BONE DENSITY BONE DENSITY [facility] Start: 2010 PNEUMOCOCCAL: 65+ (1 - PCV) PNEUMOCOCCAL: 65+ (1 - PCV) [facility] Start: 2010 Screening for osteoporosis Bone Density Screening [facility] Start: 2005 RSV Vaccine (1 - 1-d ose 60+ series) RSV Vaccine (1 - 1-dose 60+ series) [facility] Start: 1995 SHINGRIX VACCINE (1 of 2) SHINGRIX VACCINE (1 of 2) [facility] Start: 1990 DIABETES SCREEN DIABETES SCREEN [facility] Start: 1990 Diabetes Screening Diabetes Screenin g [facility] Start: 1964 Urine microalbumin profile [facility] Start: 1963 Annual 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 Club Director sudha Disease Visit Annual PCP Team Chronic Disease Visit [facility] Start: 1963 Anxiety Screening Anxiety Screening [facility] Start: 1963 Depression Screening Depression Scre ening [facility] Start: 1963 HEPATITIS C SCREENING HEPATITIS C [facility] Start: 1963 Hepatitis C screening Hepatitis C [facility] ECG COMPLETE ECG COMPLETE ECG Routine Preoperative examination Tachycardia 02/28/2024 1:49 PM EDT [facility] Work Phone: Patient Education Hemorrhoids (DC) [facility] Work Phone: [facility] Immunizations Immunization Date Immunization Notes Care Provider Fa cility 04-16-2021 COVID-19 mRNA-1273 (Moderna) MD Gisella Porter Work Phone: [facility] 09-01-2020 COVID-19 mRNA-1273 (Moderna) MD Gisella Porter Work Phone: [facility] 08-03-2020 COVID-19 mRNA-1273 (Moderna) MD Gisella Porter Work Phone: [facility] 04-02-2020 influenza virus vaccine, unspecified formulation Funmilayo Odell MD Work Phone: [facility] Payers Date Payer Category Payer Private Health Insurance [facility] AARP SUPPLEMENT [id number] 2022-Present [phone] [address] [place] [address] Indemnity [id number] 2021 Self-pay [id number] 2010 Medicare MEDICARE MEDICAR E A AND B [id number] 2010-Present [phone] [place] [address] Medicare [id number] 1959 Medicare [id number] 1959 Unknown [id number] 1945 Unknown [id number] .593 1945 Unknown [id number] [id number] .593 1945 Unknown [id number] [id number] .593 1945 Unknown [id number] [id number] .593 1945 Unknown [id number] [id number] .593 1945 Unknown [id number] 2.16.840.1.988708.3.579.2 .593 1945 Unknown [id number] [id number] .593 Unknown [id number] [id number] .531 Unknown [id number] [id number] .531 Unknown [id number] [id number] .531 Unknown [id number] 2.16.840.1.646366.3.579.2 .531 Unknown [id number] [id number] .531 Unknown [id number] .531 Social History Date Type Detail Facility Unknown if ever smoked [facility] Other Start: 10-27-2022 End: 02-28-2024 Sex Assigned At [employer] Other Start: 12-20-2021 End: 10-27-2022 Tobacco smoking status NHIS Never smoked tobacco (finding) [facility] Start: 1945 Sex Assigned At Female [facility] Start: 10-27-2022 Tobacco use and exposure Smokeless tobacco non-user [facility] Start: 10-27-2022 End: 02-28-2024 Alcohol intake Lifetime non-drinker (finding) [facility] Start: 1945 Sex Assigned At Not on file [facility] Start: 10-27-2022 End: 02-28-2024 History of Social function [facility] National Score (1-10 0), lower number is lower risk 53 [facility] Start: 02-27-2024 Gender identity Identifies as female gender (finding) [facility] Start: 02-27-2024 Sexual orientation Heterosexual (finding) [facility] Medical Equipment Procedure Code Equipment Code Equipment Origin al Text Equipment Identifier Dates Arthroplasty, knee, total, minimally invasive Orthopaedic cement, non-medicated [id number] FDA Start: 12-20-2021 Arthroplasty, knee, total, minimally invasive Uncoated knee femur prosthesis ()[id number] FDA Start: 12-20-2021 Arthroplasty, knee, total, minimally invasive Tibial insert ()[id number] FDA Start: 12-20-2021 Arthroplasty, knee, total, minimally invasive Uncoated knee tibia prosthesis, metallic ()[id number] FDA Start: 12-20-2021 Arthroplasty, knee, total, minimally invasive Polyethylene patella prosthesis ()[id number] FDA Start: 12-20-2021 Goals Date Patient Goal Desired Activity /State Clinical Notes 04-20-2021 to 03-19-2024 Zaida Soriano PA-C - 02/28/2024 2:26 PM EDTAngZaida stringer PA-C - 02/28/2024 2:26 PM EDTPatient Funmilayo Hobbs MD - 02/23/2024 2:40 PM EDTRFunmilayo thomson MD - 11/03/2023 2:40 PM EDT Note Date & Type Note Facility 03-19-2024 Note HNO ID: [id number] Author: JULIANA BENITES APRN.JEWELRY APPRAISER Service: Anesthesiology Author Type: Nurse Audit Director Type: Anesthesia Procedure Notes Filed: 03/19/2024 08:01 Note Text: ANESTHESIOLOGY PROCEDURE NOTE Airway General Information Procedure Start Time/Medication Administration: 03/19/2024 7:43 AM Procedure End Time: 03/19/2024 7:04 AM Patient location during procedure: OR Staffing JEWELRY APPRAISER: Juliana Benites APRN.JEWELRY APPRAISER Performed by: JEWELRY APPRAISER Indications and Patient Condition Indications for airway management: anesthesia Preoxygenated: yes anesthesia circuit Method: sleep Difficult Mask: No Final Airway Details Final airway type: endotracheal airway Final Endotracheal Airway: ETT Cuffed: yes Successful intubation technique: direct laryngoscopy Blade: Daryl Blade size: #3 ETT size (mm): 7.0 Placement verified by: capnometry Cormack-Lehane Classification: grade I - full view of glottis Number of attempts at approach: 1 Airway not difficult SIGNATURE: Juliana Benites APRN.JEWELRY APPRAISER PATIENT NAME: Billie Yeboah DATE: March 19, 2024 TIME: 8:01 AM CSN: [id number] [facility] 02-28-2024 History and physical note Images from [...] has never had a prior EKG at [facility] before, but has at either [facility] or [facility]. Faxing for records for comparison. Checking CBC, [...] hands, unspecified osteoarthritis type Follows with outside director of psychology. On daily Etodolac and has Tramadol for [...] 35 kg/m^2 Non-male patient STOP-Bang Score: 1 [id number] Score: [id number] Score: 0 ANESTHESIA FINDINGS: Intubation History: No [...] mg tablet ECG COMPLETE Faxed release to [facility] 02/28/2024 for Last EKG, need for comparison. [...] fevers. Neuro: No history of TIA's, stroke, MANAGER QUALITY IMPROVEMENT tumor, impaired sensorium, hemiplegia, paraplegia or quadraplegia. [...] neuroma's. unsure of year 1997: HYSTERECTOMY HX 1968: THYROID SURGERY HX Comment: [...] ALLERGIES Allergen Reactions Ciprofloxacin Rash, Unknown Nitrofurantoin Jenkins* Other: See Comments, GI Upset Sulfamethoxazole-Tr* Other: [...] DATE: 02/28/2024 TIME: 2:26 PM PAGER/CONTACT #: [facility] 02-28-2024 History and physical note Images from [...] has never had a prior EKG at [facility] before, but has at either [facility] or [facility]. Faxing for records for comparison. Checking CBC, [...] hands, unspecified osteoarthritis type Follows with outside director of psychology. On daily Etodolac and has Tramadol for [...] 35 kg/m^2 Non-male patient STOP-Bang Score: 1 [id number] Score: [id number] Score: 0 ANESTHESIA FINDINGS: Intubation History: No [...] mg tablet ECG COMPLETE Faxed release to [facility] 02/28/2024 for Last EKG, need for comparison. - Received EKG's done : 11/12/21 - Sinus tachycardia 100 bpm, low QRS voltage 10/22/13 - SR with poor wave progression and low QRS voltages in precordial leads. REASON FOR VISIT: iBllie Yeboah is a 78 year old female [...] fevers. Neuro: No history of TIA's, stroke, MANAGER QUALITY IMPROVEMENT tumor, impaired sensorium, hemiplegia, paraplegia or quadraplegia. [...] neuroma's. unsure of year 1997: HYSTERECTOMY HX 1968: THYROID SURGERY HX Comment: [...] Prior to Admission medications as of 02/28/24 3129 Medication Sig Last Dose Taking Etodolac 500 [...] ALLERGIES Allergen Reactions Ciprofloxacin Rash, Unknown Nitrofurantoin Jenkins* Other: See Comments, GI Upset Sulfamethoxazole-Tr* Other: [...] PM PAGER/CONTACT #: documented in this encounter [facility] 02-27-2024 Instructions Zaida Soriano PA-C - 02/27/2024 12:07 PM EDT Images from the original note were not included. [facility] PATIENT PREOPERATIVE INSTRUCTIONS Testing that needs completed prior to surgery: - Lab work ordered today, recommend completing today at Outpatient Lab Funmilayo Odell MD has scheduled you for your procedure at this surgery center: [facility]: [phone] --[address] [place] [address]. Please enter through the entrance closest to [...] Procedures: - YOU MUST HAVE A RESPONSIBLE FORESTRY ENGINEER TAKE YOU HOME. A FUR DRY CLEANER OR HELICOPTER PILOT CANNOT BE MADE A RESPONSIBLE FORESTRY ENGINEER. - We recommend that a responsible person [...] Advance Directive, please fax a copy to [phone] or email to for it to be [...] Zaida Soriano PA-C documented in this encounter [facility] 02-23-2024 History of Presen t illness Narrative COLORECTAL SURGERY February 23, 2024 Billie Yeboah [...] ALLERGIES Allergen Reactions Ciprofloxacin Rash, Unknown Nitrofurantoin Jenkins* Other: See Comments, GI Upset Sulfamethoxazole-Tr* Other: [...] exam reveals no gross blood or masses Corporate Treasurer present: Yes, Sarah Z Anoscopy: The patient [...] MD Colorectal Surgery documented in this encounter [facility] 02-23-2024 Note HNO ID: [id number] Author: FUNMILAYO ODELL MD Service: ? Author [...] ALLERGIES Allergen Reactions Ciprofloxacin Rash, Unknown Nitrofurantoin Jenkins* Other: See Comments, GI Upset Sulfamethoxazole-Tr* Other: [...] exam reveals no gross blood or masses Corporate Treasurer present: Yes, Sarah Z Anoscopy: The patient [...] treatment plan: nyla Odell MD Colorectal Surgery [facility] 11-03-2023 History of Presen t illness Narrative COLORECTAL SURGERY November 03, 2023 Billie Goodther 78 year old This consult was requested by Dr. Forbes and my final recommendations will be communicated to the requesting health care provider by way of the shared medical record for internal providers or letter via the [employer] for external providers. Chief Complaint: [...] ALLERGIES Allergen Reactions Ciprofloxacin Rash, Unknown Nitrofurantoin Jenkins* Other: See Comments, GI Upset Sulfamethoxazole-Tr* Other: [...] has a weak squeeze and discoordinated push Corporate Treasurer present: Yes, Sarah Z Anoscopy: The patient [...] MD Colorectal Surgery documented in this encounter [facility] 11-03-2023 Note HNO ID: [id number] Author: FUNMILAYO ODELL MD Service: ? Author Type: Physician Type: Progress Notes Filed: 11/03/2023 14:59 Note Text: COLORECTAL SURGERY November 03, 2023 Billie Yeboah 78 year old This consult was requested by Dr. Forbes and my final recommendations will be communicated to the requesting health care provider by way of the shared medical record for internal providers or letter via the [employer] for external providers. Chief Complaint: [...] ALLERGIES Allergen Reactions Ciprofloxacin Rash, Unknown Nitrofurantoin Jenkins* Other: See Comments, GI Upset Sulfamethoxazole-Tr* Other: [...] has a weak squeeze and discoordinated push Corporate Treasurer present: Yes, Sarah Z Anoscopy: The patient [...] treatment plan: nyla Odell MD Colorectal Surgery [facility] 11-03-2023 Nurse Note What is the reason for your visit today? BRBPR, hemorrhoids Who is your referring physician? Dr. Forbes Are you having poor oral intake? NO Have you had unintentional weight loss of 15 lbs/7 Kg in the last 3-6 months? NO Bowels: regular, bleeding with and without BMs, discharge, brown/green in color Wound: Temperature: No Drains: No [facility] 11-03-2023 Nurse Note What is the reason for your visit today? BRBPR, hemorrhoids Who is your referring physician? Dr. Forbes Are you having poor oral intake? NO Have you had unintentional weight loss of 15 lbs/7 Kg in the last 3-6 months? NO Bowels: regular, bleeding with and without BMs, discharge, brown/green in color Wound: Temperature: No Drains: No documented in this encounter [facility] 10-11-2023 Miscellaneous Notes Appointment with Dr. Odell is scheduled. Referral Scanned in for Dr. Odell, called pt and LVM, awaiting call back to schedule. documented in this encounter [facility] 04-10-2023 Evaluation note Encounter Date Diagnosis Assessment Notes Mar, IBS (irritable bowel syndrome) (ICD-10 - K58.9) [facility] Other 07-12-2023 Evaluation note* Encounter Date Diagnosis Assessment Notes Treatment Notes Treatment Clinical Notes Dec, Primary osteoarthrit is of first carpometacarpal joint of left hand (ICD-10 - M18.12) Progress as tolerated Discussed DIP fusions Dec, Trigger ring finger of left hand (ICD-10 - M65.342) Dec, Left hand pain (ICD- 10 - M79.642) [facility] Other 06-14-2023 Evaluation note* Encounter Date Diagnosis [...] Left hand pain (ICD- 10 - M79.642) [facility] Other 05-04-2023 History of Present illness Narrative* Funmilayo Odell MD - 10/27/2022 2:00 PM EDT COLORECTAL SURGERY October 27, 2022 Billie Goodther 77 year old This consult was requested by Dr. Manoj Forbes and my final recommendations will be communicated to the requesting health care provider by way of the shared medical record for internal providers or letter via the [employer] for external providers. Chief Complaint: [...] exam reveals no gross blood or masses Corporate Treasurer present: Yes, Maribell Joiner Anoscopy: The patient [...] Odell MD Colorectal Surgery [facility]* Maribell Joiner RN - [...] Temperature: No Drains: No documented in this [facility]03-30-2023 Evaluation note* Encounter Date Diagnosis Assessment Notes Treatment Notes Treatment Clinical Notes Aug, Hemorrhoids (ICD-10 - K64.9) [facility] Other 03-29-2023 Procedure [facility]02-09-2023 Evaluation note* Encounter Date Diagnosis Assessment Notes Treatment Notes Treatment Clinical Notes Jul, IBS (irritable bowel syndrome) (ICD-10 - K58.9) [facility] Other 01-12-2023 NotePROCEDURE: XR HAND RT MIN [...] Electronically authenticated by: VIDYA CHAUDHARY Date: 2022-07-07 12:06[facility]10-10-2022 Evaluation note* Encounter Date Diagnosis Assessment Notes Treatment Notes Treatment Clinical Notes Mar, IBS (irritable bowel syndrome) (ICD-10 - K58.9) [facility] Other 08-10-2022 Evaluation note* Encounter Date Diagnosis Assessment Notes Treatment Notes Treatment Clinical Notes Jan, Primary osteoarthritis of right knee (ICD-10 - M17.11) Jan, History of total right knee replacement (ICD-10 - Z96.651) Jan, Age-related osteoporosis without current pathological fracture (ICD-10 - M81.0) Jan, Other terminologist (current) drug therapy (ICD-10 - Z79.899) Jan, Trochanteric bursitis of right hip (ICD-10 - M70.61) Jan, Other [facility]KA at [facility] on 12/20/2021 Overall I think she is doing very well. The stitch that popped up in the proximal aspect the incision was removed. Patient tolerated this well. Patient may continue activities as tolerated. Recommended continuing physical therapy not only for her knee but also for greater trochanteric bursitis. Continue taking zifv-pvd-emtxjsj anti-inflammatories as needed for assistance with swelling and pain associated with the operative extremity. I have also prescribed her some iron and vitamin C in the event that she did have some low postoperative hemoglobin. Follow-up in 6 weeks for repeat examination and long standing x-rays. [facility] Other 07-13-2022 Evaluation note* Encounter Date Diagnosis Assessment Notes Treatment Notes Treatment Clinical Notes Dec, Primary osteoarthritis of right knee (ICD-10 - M17.11) Dec, History of total right knee replacement (ICD-10 - Z96.651) Dec, Age-related osteoporosis without current pathological fracture (ICD-10 - M81.0) Dec, Other fci (current) drug therapy (ICD-10 - Z79.899) Dec, Other [facility] TKA at [facility] on 12/20/2021 Doing well. Zipline was [...] 3 view x-rays of the right knee. [facility] Other 06-17-2022 Evaluation note* Encounter Date Diagnosis [...] patient could proceed with surgery safely. The service department manager was vital for surgery timing and [...] plans. Prolonged services time spent: 32 minutes [facility] Other 06-17-2022 Evaluation note* Encounter Date Diagnosis Assessment Notes Treatment Notes Treatment Clinical Notes Nov, Primary osteoarthritis of right knee (ICD-10 - M17.11) [facility] Other 06-08-2022 Evaluation note* Encounter Date Diagnosis Assessment Notes Treatment Notes Treatment Clinical Notes Nov, Age-related osteoporosis without current pathological fracture (ICD-10 - M81.0) Nov, Primary osteoarthritis of right knee (ICD-10 - M17.11) Nov, Other terminologist (current) drug therapy (ICD-10 - Z79.899) Nov, [...] replaced previously. Joints Meeting Checklist - Pharmacy: [facility] to bed - Approach/Technique: [place] - Implants: [...] for 4 to 5 years per her director of psychology, Dr. Maldonado. All questions were answered after [...] elected to proceed with the above surgery. [facility] Other 05-18-2022 Evaluation note* Encounter Date Diagnosis Assessment Notes Treatment Notes Treatment Clinical Notes October, Age-related osteoporosis without current pathological fracture (ICD-10 - M81.0) October, Primary osteoarthritis of right knee (ICD-10 - M17.11) October, Other fci (current) drug therapy (ICD-10 - Z79.899) October, [...] or absent clearances could delay their surgery. [facility] Other 02-18-2022 Evaluation note* Encounter Date Diagnosis [...] injection well. 6. Follow up 3 months [facility] Other 10-26-2021 Evaluation note* Encounter Date Diagnosis Assessment Notes Treatment Notes Treatment Clinical Notes Mar, IBS (irritable bowel syndrome) (ICD-10 - K58.9) Colonoscopy Follow up in 1 year Mar, Special screening for malignant neoplasms, colon (ICD-10 - Z12.11) [facility] Other Evaluation noteNo assessment information available [facility] Work Phone: Evaluation note* Diagnosis Hemorrhoids, unspecified hemorrhoid type- Primary documented in this encounter [facility] note* Diagnosis BRBPR (bright red blood per rectum)- Primary Hemorrhage of rectum and anus Hemorrhoids, unspecified hemorrhoid type Pelvic floor dysfunction Pelvic muscle wasting documented in this encounter [facility] note* Diagnosis Hemorrhoids, unspecified hemorrhoid type- Primary documented in this encounter [facility] note* Diagnosis Preoperative examination- Primary Preoperative examination, [...] anus Rectal prolapse [facility] Author Manoj Forbes [facility] September 21, 2022 10:51am Note Date/Time September 21, 2022 10: 51am [facility] [address] [place] [address] Gastroenterology H&P Signed Patient: Billie Yeboah MR#: [id number] : 1945 Acct:[id number] Age/Sex: 77 / F Adm Date: 3 Loc: Room: Type: [facility] Attending Dr: Manoj Forbes MD Copies to: [...] signed by Manoj Forbes MD> 09/21/22 1051 [facility] Work Phone: History general Narrative - Reported* Type Description Date Surgical History THYROID Surgical History LEFT KNEE REPLAEMENT Surgical History HYSTERECTOMY Surgical History BILATERAL FOOT SURGERY Surgical History HIP REPLACEMENT RIGHT Hospitalization History Stomach pains 1 night [facility] Other History general Narrative - Reported* Type Description Date Medical History Arthritis Medical History IBS Medical History thyroid disease Medical History high cholesterol Surgical History THYROID Surgical History LEFT KNEE REPLAEMENT Surgical History HYSTERECTOMY Surgical History BILATERAL FOOT SURGERY Surgical History HIP REPLACEMENT RIGHT Hospitalization History Stomach pains 1 night [facility] Other Hospital Discharge instructions Additional Instructions DISCHARGE [...] NOT operate machinery such as power tools, Sanguine mowers, snow blowers, sewing machines, etc. for [...] problems. -Follow up with PCP. -Office number [phone].[facility] Work Phone: Reason for referral (narrative)* Reason *FU 09/30 Consult for hemorrhoids. Referral faxed to Dr. Odell Diagnosis 1 Hemorrhoids (K64.9) Referral Organization [facility] Gastroenterolo sanjay Referring Provider First Name Manoj Referring Provider Last Name Leidy Referring Provider Specialty Gastroenter ology Referred Organization [facility] Referred Provider FUNMILAYO ODELL Ref[address] Address [address] [place],[address] Referred Provider Specialty Colorectal S urgery Referral Priority Routine General Notes Juliana De Guzman 0 09/23/2022 10:05:39 AM > Referral faxed by office. [facility] Other Reason for referral (narrative)* Outpatient Procedure (Routine) - New Request Specialty Diagnoses / Procedures Referred By Charis sutton Ref[facility] Diagnoses Preoperative examination Tachycardia Procedures ECG COMPLETE ECG ROUTINE ECG W/LEAST 12 LDS W/I&R Zaida Soriano PA-C [address] [place] [address] [facility] [address] [place] [address] Referral ID Status Reason Start Date Expiration Date Visits Requested Visits Authorized [id number] New Request Auto-Generat ed Referral 02/28/2024 02/27/2025 1 1 [facility] Chief Complaint and Reason for Visit Chief [...] Referral Specialty Diagnoses / Procedures Referred By Charis sutton Referred To Contact [facility] Diagnoses Pelvic floor dysfunction Procedures CONSULT TO PHYSICAL THERAPY PHYSICAL THERAPY EVALUATION HIGH COMPLEX [address] [place] [address] [place] [address] [facility] [address] [place] [address] Referral ID Status Reason Start Date Expiration Date Visits Requested Visits Authorized [id number] Pending Review PCP Requested Referral Auto-Generate d [...] Active Manoj Forbes MD Attending Provider Active Teller Manager Relationship Specialty Start Date End Date Daryl Austin [address] [place] [address] PCP - General 10/11/00 Team Status: Inactive Member Role Status Dates Gisella Porter MD Primary Care Provider Active Ivette Taylor MD Attending Provider Active Teller Manager Relationship Specialty Start Date End Date [facility] [place] [address] [address] [place] [address] PCP - General 10/11/00 Teller Manager Relationship Specialty Start Date End Date [facility], Daryl [address] [place] [address] PCP - General 10/11/00 Teller Manager Relationship Specialty Start Date End Date [facility], Daryl [address] [place] [address] PCP - General 10/11/00 Teller Manager Relationship Specialty Start Date End Date [facility] [place] [address] [place] [address] PCP - General 10/11/00 02/28/24 Gisella Porter MD [address] [place] [address] PCP - General Family Medicine 02/29/24 INFORMATION SOURCE (unrecogn ized section and content) DATE CREATED AUTHOR 08/30/2022 [facility] DATE CREATED AUTHOR AUTHOR'S ORGANIZ ATION 12/30/2022 [facility] DATE CREATED AUTHOR AUTHOR'S ORGANIZ ATION 02/25/2024 [facility] DATE CREATED AUTHOR AUTHOR'S KRISTEN REYNOSO 03/21/2024 [facility] Source Comments (unrecognize d section and content) In the event this informatio n is protected by the Federal Confidentiality of Alcohol and Drug Abuse Patient Records regulations: The Federal rules restrict any use of the information to criminally investigate or prosecute any alcohol or drug abuse patient.[facility] the event this information is protected by the Federal Confidentiality of Alcohol and Drug Abuse Patient Records regulations: The Federal rules restrict any use of the information to criminally investigate or prosecute any alcohol or drug abuse patient.[facility] the event this information is protected by the Federal Confidentiality of Alcohol and Drug Abuse Patient Records regulations: The Federal rules restrict any use of the information to criminally investigate or prosecute any alcohol or drug abuse patient.[facility] the event this information is protected by the Federal Confidentiality of Alcohol and Drug Abuse Patient Records regulations: The Federal rules restrict any use of the information to criminally investigate or prosecute any alcohol or drug abuse patient.[facility] the event this information is protected by the Federal Confidentiality of Alcohol and Drug Abuse Patient Records regulations: The Federal rules restrict any use of the information to criminally investigate or prosecute any alcohol or drug abuse patient.[facility] Goals (unrecognized section and content) Goals [...] BE BASED ON THE PRIMARY CLINICAL RECORDS. [facility] [employer] [facility]. provides no warranty or guarantee of the accuracy or completeness of information in this document.
[2024-03-26 13:23] LABS: Basophils Percent Auto 0.8 % (0.2-2.0); Eosinophils Absolute Auto 0.2 10^3/uL (0.0-0.7); Eosinophils Percent Auto 4.7 % (0.9-7.0); Hematocrit 36.4 % (36.0-48.0); Immature Granulocytes Abs Auto 0.01 10^3/uL (0.00-0.03); Immature Granulocytes Pct Auto 0.2 % (0.0-0.5); Lymphocytes Absolute Auto 0.9 10^3/uL (1.2-3.8); Lymphocytes Percent Auto 17.7 % (20.5-60.0); Mean Corpuscular Hemoglobin 29.8 pg (26.7-34.0); Mean Corpuscular Volume 90.3 fL (81.0-99.0); Mean Platelet Volume 9.1 fL (9.5-13.5); Monocytes Absolute Auto 0.5 10^3/uL (0.3-0.8); Monocytes Percent Auto 9.9 % (1.7-12.0); Neutrophils Absolute Auto 3.2 10^3/uL (1.4-6.5); Neutrophils Percent Auto 66.7 % (43.0-75.0); Platelet Count 277 10^3/uL (150-450); Red Blood Count 4.03 10^6/uL (4.20-5.40); Red Cell Distribution Width 12.4 % (11.0-15.0); White Blood Count 4.9 10^3/uL (4.0-11.0)
[2024-03-26 13:57] LABS: Alanine Aminotransferase 20 U/L (14-59); Albumin Globulin Ratio 0.7; Albumin Level 2.9 g/dL (3.4-5.0); Alkaline Phosphatase 77 U/L (46-116); Anion Gap 9.3; Aspartate Amino Transferase 19 U/L (15-37); BUN Creatinine Ratio 12.8; Bilirubin Total 0.5 mg/dL (0.2-1.0); Calcium 8.9 mg/dL (8.5-10.1); Carbon Dioxide 28.6 mmol/L (21.0-32.0); Chloride 104 mmol/L (98-107); Estimated GFR (African America >60 (>=60); Estimated GFR (Non-African Ame >60 (>=60); Globulin 3.9 g/dL; Glucose 111 mg/dL (74-106); Potassium 3.9 mmol/L (3.5-5.1); Sodium 138 mmol/L (136-145); Total Protein 6.8 g/dL (6.4-8.2)
== END 2024-03-26 12:55 | disposition home or self-care (01) ==
LOC: LAB 12:56
PROVIDERS: PCP Family Medicine; Visit Provider Registered Nurse
DX: E55.9 Vitamin D deficiency, unspecified (principal); M15.0 Primary generalized (osteo)arthritis; Z79.899 Other long term (current) drug therapy
CPT/HCPCS: 36415; 80053; 82306; 85025

== ENCOUNTER 2024-04-13 09:19 | Emergency (ER) | payer MEDICARE, SELFPAY ==
[2024-04-13 09:26] VITALS: BP 153/82; PULSE 106; TEMP 36.9; O2SAT 94; BMI 23.4
--- NOTE | 2024-04-13 09:40 | XR_ITS ---
The [address] [address] Patient Name: YORDY DREW MRN: [id number] date: 1945 Sex: F Assigned Patient Location: ER Current Patient Location: ED.MAIN Accession/Order Number: [id number] Exam Date: 04/13/2024 09:54 Report Date: 04/13/2024 10:43 At the request of: BROCK PUTNAM Procedure: XR wrist RT 2V HISTORY: The patient woke up with right wrist pain. No known injury. XR wrist RT 2V: 04/13/2024 9:54 AM EDT COMPARISON: Radiographs right hand 07/06/2022. FINDINGS: There are severe degenerative changes again seen of the first carpometacarpal joint, the triscaphe joint, the first MCP joint, and the fourth MCP joint at the edge of the [id number]-pi-ayhx. There is severe narrowing of the space between the lunate and distal ulna again seen. There are severe degenerative changes again seen of the distal radioulnar joint with mild erosive change of the adjacent distal radius. There again appear to be at least moderate to severe degenerative changes of the radiocarpal joint. No acute fracture or dislocation is seen. There is soft tissue swelling of the wrist. XR/XR wrist RT 2V IMPRESSION: 1. No acute fracture or dislocation is seen. 2. There is a similar appearance of osteoarthritis involving multiple joints when compared to the prior radiographs of 07/06/2022 as described above. 3. Nonspecific soft tissue swelling of the wrist. Electronically authenticated by: GISELLA DUMONT Date: 04/13/2024 10:43
[2024-04-13] MEDS: PREDNISONE 20 MG TABLET 40 MG PO (09:47)
[2024-04-13] MEDS: FAMOTIDINE 20 MG TABLET PO (09:47)
[2024-04-13] MEDS: OXYCODONE HCL/ACETAMINOPHEN 5MG/325MG 1 TAB PO (09:47)
--- OUTSIDE RECORDS SUMMARY | 2024-04-13 10:07 | XMS_ITS | CCD ---
Author Organization [facility] Care Team Providers Care Hand Iii Cutter Name Role Phone Manoj Forbes Unavailable Sydney Erickson II Unavailable MD Gisella Porter Primary Care Provider [phone] MD Sydney Erickson II Attending Provider MD Gisella Porter Primary Care Provider [phone] MD Sydney Erickson II Attending Provider [phone] KENC, DR HOOVER Admitting Unavailable MISC, DR HOOVER Attending Unavailable HOY ., DR OBANDO Primary Care Unavailable MISC, DR HOOVER Consulting Unavailable HOY ., DR OBANDO Admitting Unavailable HOY ., DR OBANDO Attending Unavailable HOY ., DR OBANDO Primary Care Unavailable HOY ., DR OBANDO Consulting Unavailable PREETHIEBER, DR VIDYA Strong Consulting Unavailable HOY ., DR OBANDO Admitting Unavailable HOY ., DR OBANDO Attending Unavailable HOY ., DR OBANDO Primary Care Unavailable HOY ., DR OBANDO Consulting Unavailable HOY ., DR OBANDO Admitting Unavailable HOY ., DR OBANDO Attending Unavailable HOY ., DR OBANDO Primary Care Unavailable HOY ., DR OBANDO Consulting Unavailable MIDLAND, DR FUNMILAYO Ramirez Consulting Unavailable TYRONE, DR [...] Unavailable MD Gisella Porter Primary Care Provider [phone] MD Manoj Forbes Attending Provider GeovannaDaryl avelar Primary Care Provider UnavailMD Ivette Treadwell Attending Provider MD Gisella Porter Primary Care Provider [phone] MD Sydney Erickson II Attending Provider Ivette Taylor Unavailable Hinds Daryl Primary Care Provider UnavailDaryl Viera Primary Care Provider UnavailMANOJ Childress Referring Unavailable FUNMILAYO ODELL Attending Unavailable MANOJ FORBES Referring Unavailable FUNMILAYO ODELL Attending Unavailable Daryl Austin Primary Care Provider UnavailGisella Tinajero MD Primary Care Provider [phone] FUNMILAYO ODELL Attending Unavailable FUNMILYAO ODELL Admitting Unavailable FUNMILAYO ODELL Referring Unavailable ZAIDA SORIANO Referring Unavailable MD Gisella Porter Primary Care Provider [phone] MD Manoj Forbes Attending Provider [phone] Manoj Forbes Attending Unavailable Manoj Forbes Admitting Unavailable Gisella Porter Primary Care Unavailable Allergies Allergy Classification Reported Allergen(s) Allergy Type Date of Onset Reaction(s) Facility (20 sources) Ciprofloxacin; Translations: [CIPROFLOXACIN] Drug Allergy 05-31-20 13 Rash, Unknown [facility] (20 sources) NITROFURANTOIN, MACROCRYSTALS / Nitrofurantoin, Monohydrate Drug Allergy 10-28-19 23 Other: See Comments, GI Upset [facility] (20 sources) Sulfamethoxazole / Trimethoprim Drug Allergy 05-31-20 13 Other: See Comments, Rash [facility] (3 sources) Ciprofloxacin; Translations: [Cipro] Drug Allergy 05-31-20 13 Unknown [facility] (3 sources) Sulfamethoxazole / Trimethoprim; Translations: [Bactrim] Drug Allergy 05-31-20 13 Unknown [facility] Repository (7 sources) Nitrofurantoin; Translations: [nitrofurantoin] Drug Allergy 04-29-20 21 Rash, Rash, vomiting,rash [facility] (7 sources) Sulfamethoxazole; Translations: [sulfamethoxazole] Drug Allergy 04-29-20 21 Rash, Rash, vomiting, rash [facility] (7 sources) Trimethoprim; Translations: [trimethoprim] Drug Allergy 04-29-20 21 Rash, Rash, vomiting, rash [facility] (1 source) Nitrofurantoin Drug Allergy 05-31-20 13 [facility] Repository (2 sources) Sulfamethoxazole / Trimethoprim; Translations: [SULFAMETHOXAZOLE-T RIMETHOPRIM] Drug Allergy 05-31-20 13 [facility] Repository (2 sources) NITROFURANTOIN MONOHYD/M-CRYST; Translations: [NITROFURANTOIN MONOHYD/M-CRYST] Propensity to adverse reactions to drug (disorder) 10-28-19 23 [facility] Repository (1 source) Ciprofloxacin Drug Allergy 12-05-19 24 [facility] Rep[facility] Medications Current Medications Medication Drug [...] capsule (8 sources) Nonsteroidal Anti-inflammatory Drug Start: take 1 capsule by mouth every twelve hours Celecoxib 200 MG 1 capsule with food Orally Twice a day for 30 day(s) MED TO BED UPON DISCHARGE DOS: 12/21/2021 Nov, Active cholecalciferol 0.125 mg oral tablet (11 sources) Vitamin D Start: 021 take 1 [...] Take 5,000 Units by mouth once daily. docusate sodium 50 mg / sennosides, fci 8.6 mg oral tablet (5 sources) Start: 12-01-2021 take 2 tablets by mouth every twenty-four hours Senokot S 8.6-50 MG 2 tablets Orally Once a day for 30 day(s) MED TO BED UPON DISCHARGE DOS: 12/21/2021 Nov, Active etodolac 500 mg oral tablet (20 sources) Nonsteroidal Anti-inflammatory Drug Start: 04-29-2021 take 500 mg by mouth twice daily [...] 112 mcg by mout h once daily. omeprazole 20 mg delayed release oral capsule (8 sources) Proton Pump Inhibitor Start: 09-21-2023 End: 12-05-2023 Omeprazole Active 20 MG PO Daily December 05, 2023 12:00am Take 1 capsule orally 30 minutes before morning meal. Start: 04-29-2021 End: 12-07-2021 take 20 mg by mouth once daily Omeprazole Discontinued 20 MG PO Daily April 29, 2021 12:00am December 07, 2021 1:17pm simvastatin 5 mg oral tablet (1 source) HMG-CoA Reductase Inhibitor Start: 09-21-2023 take 5 mg by mouth once daily Simvastatin Active 5 MG PO Daily September 21, 2023 12:00am traMADol hydrochloride 50 mg oral tablet (20 sources) Opioid Agonist Start: 12-12-2023 traMADol (ULTR AM) 50 mg tablet as needed for pain. [...] BED UPON DISCHARGE DOS: 12/21/2021 Nov, Not-Taking dicyclomine hydrochloride 20 mg oral tablet (20 sources) Anticholinergic Start: 01-12-2015 End: 02-20-2024 take 20 mg by mouth twice daily Dicyclomine Discontinued 20 MG PO Twice daily April 29, 2021 12:00am February 20, 2024 4:32pm Comment on above: Take 20 mg by mouth twice daily. morphine sulfate 15 mg extended release oral tablet (8 sources) Opioid Agonist Start: 12-01-2021 take 1 tablet by mouth every twelve hours for pain Morphine Sulfate ER 15 MG 1 tablet for breakthrough pain only Orally every 12 hrs for 5 days MED TO BED UPON DISCHARGE DOS: 12/21/2021 Nov, Not-Taking ondansetron 8 mg oral tablet (8 sources) [...] DOS: 12/21/2021 Nov, Not-Taking polyethylene glycol 3350 27577 mg powder for oral solution (8 sources) Osmotic Laxative Start: 12-01-2021 MiraLax 17 GM 1 packet mixed with 8 ounces of fluid Orally Once a day for 7 days MED TO BED UPON DISCHARGE DOS: 12/21/2021 Nov, Not-Taking rosuvastatin calcium 5 mg oral tablet (20 sources) HMG-CoA Reductase Inhibitor Start: 04-29-2021 End: 09-21-2023 take 5 mg by mouth once daily at bedtime Rosuvastatin Discontinued 5 MG PO Daily at bedtime April 29, 2021 12:00am September 21, 2023 1:48pm Comment on above: Take 5 mg by mouth o nce daily. 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 DRUG THERAPY] Onset: 2 Resolved: 2 Episodic Other aftercare (1 source) shelter current use of non-steroidal anti-inflammatory drug; Translations: [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 controller (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) use of non-steroidal anti-inflammatories (NSAID)] 09-21-2023 Episodic Other bone disease and musculoskeletal deformities [...] syndrome with diarrhea] Onset: 4 Chronic Other gastrointestinal disorders (1 source) Irritable bowel syndrome characterized by constipation; Translations: [Irritable bowel syndrome with constipation] 12-05-2023 Chronic Other gastrointestinal disorders (1 source) Irritable bowel syndrome with constipation; Translations: [Irritable bowel syndrome with constipation] Onset: 4 Chronic Other nervous system disorders [...] unspecified; Translations: [Hypothyroidism] Onset: 2 02-28-2024 Chronic Urinary tract infections (2 sources) Urinary tract [...] Test Name Value Interpretation Reference Range Facility Automated basophil %Ordered By: Manoj Forbes on 04-01-2024 Basophils/100 WBC (Bld) 0.6 % Normal . [facility] Comment on above: Performed By: #### C RP, CBC, ESR #### [facility] [address] Automated basophil countOrde red By: Manoj Forbes on 04-01-2024 Basophils (Bld) [#/Vol] 0.0 10*3/uL Normal 0.0-0.2 [facility] Comment on above: Performed By: #### C RP, CBC, ESR #### [address] Automated blood monocyte cou ntOrdered By: Manoj Forbes on 04-01-2024 Monocytes (Bld) [#/Vol] 0.5 10*3/uL Normal 0.0-0.8 [facility] Comment on above: Performed By: #### C RP, CBC, ESR #### [address] Automated eosinophil %Ordere d By: Manoj Forbes on 04-01-2024 Eosinophils/100 WBC (Bld) 5.1 % Normal . [facility] Comment on above: Performed By: #### C RP, CBC, ESR #### [address] Automated eosinophil countOr dered By: Manoj Forbes on 04-01-2024 Eosinophils (Bld) [#/Vol] 0.3 10*3/uL Normal 0.0-0.45 [facility] Comment on above: Performed By: #### C RP, CBC, ESR #### [address] Automated monocyte %Ordered By: Manoj Forbes on 04-01-2024 Monocytes/100 WBC (Bld) 9.4 % Normal . [facility] Comment on above: Performed By: #### C RP, CBC, ESR #### [address] Automated neutrophil %Ordere d By: Manoj Forbes on 04-01-2024 Neutrophils/100 WBC (Bld) 68.0 % Normal . [facility] Comment on above: Performed By: #### C RP, CBC, ESR #### [address] C reactive protein [Mass/vol ume] in Serum or PlasmaOrdered By: Manoj Forbes on 04-01-2024 CRP [Mass/Vol] < 0.5 mg/dL 0.0-0.5 [facility] C-Reactive Proteinon 024 CRP [Mass/Vol] mg/L Normal 0.0-0.5 [facility] Comment on above: Result Comment: PERF ORMED BY: [place] [address] PATHOLOGIST SALVAGE ENGINEER SE CHEATHAM M.D. Performed By: #### C RP, CBC, ESR #### [address] Calprotectin, Fecalon 2023 Calprotectin, Fecal 238 High 0-120 [facility] Comment on above: Result Comment: Conc entration Interpretation Follow-Up < 5 - 50 ug/g Normal None >50 -120 ug/g Borderline Re-evaluate in 4-6 weeks >120 ug/g Abnormal Repeat as clinically indicated Performed at: - [facility] [address] [id number] Lumber Planer: Nadeen Gant MD, Phone: [phone] PERFORMED BY: [place] [address] PATHOLOGIST SALVAGE ENGINEER SE CHEATHAM M.D. Performed By: #### C ALPROTECT #### [facility] , #### IBD DIAG #### [address] Complete Blood Count Auto Di ffon 04-01-2024 Mean Corpuscular HGB Conc 34.3 g/dL Normal 32.0-35.0 [facility] Comment on above: Performed By: #### C RP, CBC, ESR #### [address] NRBC% 0.1 /100{WBC} Normal 0-0.5 [facility] Comment on above: Performed By: #### C RP, CBC, ESR #### [address] Erythrocyte Sedimentation Ra char 04-01-2024 ESR (Bld) [Velocity] 20 mm/h Normal 0-29 [facility] Comment on above: Result Comment: PERF ORMED BY: [place] [address] PATHOLOGIST SALVAGE ENGINEER SE CHEATHAM M.D. Performed By: #### C RP, CBC, ESR #### [address] Erythrocyte distribution wid th [Ratio] by Automated countOrdered By: Manoj Forbes on 04-01-2024 Erythrocyte distribution width (RBC) [Ratio] 13.1 % Normal 11.9-15.3 [facility] Comment on above: Performed By: #### C RP, CBC, ESR #### [address] Erythrocyte sedimentation ra te by Photometric methodOrdered By: Manoj Forbes on 04-01-2024 ESR Photometric method (Bld) [Velocity] 20 mm/hr 0-29 [facility] Erythrocytes [#/volume] in B lood by Automated countOrdered By: Manoj Forbes on 04-01-2024 RBC (Bld) [#/Vol] 4.10 10*6/uL Normal 3.60-5.00 [facility] Comment on above: Performed By: #### C RP, CBC, ESR #### [address] Hematocrit [Volume Fraction] of Blood by Automated countOrdered By: Manoj Forbes on 04-01-2024 Hematocrit (Bld) [Volume fraction] 36.4 % Normal 34.0-46.4 [facility] Comment on above: Performed By: #### C RP, CBC, ESR #### [address] Hemoglobin [Mass/volume] in BloodOrdered By: Manoj Forbes on 04-01-2024 Hemoglobin (Bld) [Mass/Vol] 12.5 g/dL Normal 11.8-15.4 [facility] Comment on above: Performed By: #### C RP, CBC, ESR #### [address] IBD [facility] [employer] IBD Comment Normal [facility] Comment on above: Result Comment: See report. Scanned copy available in EMR. PERFORMED BY: [place] [address] PATHOLOGIST SALVAGE ENGINEER SE CHEATHAM M.D. Performed By: #### C ALPROTECT #### [facility] , #### IBD DIAG #### [address] Leukocytes [#/volume] correc jeanette for nucleated erythrocytes in Blood by Automated counOrdered By: Maonj Forbes on 04-01-2024 WBC corrected for nucl RBC Auto (Bld) [#/Vol] 5.7 10*3/uL 3.8-11.6 [facility] Leukocytes [#/volume] in Blo od by Automated countOrdered By: Manoj Forbes on 04-01-2024 WBC (Bld) [#/Vol] 5.7 10*3/uL Normal 3.8-11.6 [facility] Comment on above: Performed By: #### C RP, CBC, ESR #### [address] Lymphocytes [#/volume] in Bl ood by Automated countOrdered By: Manoj Forbes on 04-01-2024 Lymphocytes (Bld) [#/Vol] 1.0 10*3/uL Normal 1.00-4.8 [facility] Comment on above: Performed By: #### C RP, CBC, ESR #### [address] Lymphocytes/100 leukocytes i n Blood by Automated countOrdered By: Manoj Forbes on 04-01-2024 Lymphocytes/100 WBC (Bld) 16.9 % Normal . [facility] Comment on above: Performed By: #### C RP, CBC, ESR #### [address] MCH [Entitic mass] by Automa jeanette countOrdered By: Manoj Forbes on 04-01-2024 MCH (RBC) [Entitic mass] 30.4 pg Normal 24.7-34.3 [facility] Comment on above: Performed By: #### C RP, CBC, ESR #### [address] MCHC Auto (RBC) [Mass/Vol]Or dered By: Manoj Forbes on 04-01-2024 MCHC (RBC) [Mass/Vol] 34.3 g/dL 32.0-35.0 [facility] MCV [Entitic volume] by Auto mated countOrdered By: Manoj Forbes on 04-01-2024 MCV (RBC) [Entitic vol] 88.6 fL Normal 80-100 [facility] Comment on above: Performed By: #### C RP, CBC, ESR #### [address] Neutrophils [#/volume] in Bl ood by Automated countOrdered By: Manoj Forbes on 04-01-2024 Neutrophils (Bld) [#/Vol] 3.9 10*3/uL Normal 1.8-7.7 [facility] Comment on above: Performed By: #### C RP, CBC, ESR #### [address] Nucleated erythrocytes [Pres ence] in Blood by Automated countOrdered By: Manoj Forbes on 04-01-2024 Nucleated RBC Auto Ql (Bld) 0.1 /100{WBC} 0-0.5 [facility] Platelet mean volume [Entiti c volume] in Blood by Automated countOrdered By: Manoj Forbes on 04-01-2024 Platelet mean volume (Bld) [Entitic vol] 7.5 fL Normal 6.3-10.7 [facility] Comment on above: Performed By: #### C RP, CBC, ESR #### [address] Platelets [#/volume] in Bloo d by Automated countOrdered By: Manoj Forbes on 04-01-2024 Platelets (Bld) [#/Vol] 279 10*3/uL Normal 150-450 [facility] Comment on above: Performed By: #### C RP, CBC, ESR #### [address] ANES POSTPROC EVALon 024 ANES POSTPROC EVAL HNO ID: [id number] Author: MONO WHALEY MD Service: Anesthesiology Author Type: Anesthesiologist Type: Anesthesia Postprocedure Evaluation Filed: 03/19/2024 11:33 Note Text: POST ANESTHESIA EVALUATION NOTE : 1945 Procedure Summary Date: 03/19/24 Room / Location: OR05 / AV OR Anesthesia Start: 738 [...] March 19, 2024 TIME: 11:33 AM CSN: [id number] [facility] ANES PRE-OPon 03-19-2024 ANES PRE-OP HNO ID: [id number] Author: MONO WHALEY MD Service: Anesthesiology Author Type: Anesthesiologist Type: Anesthesia Preprocedure Evaluation Filed: 03/19/2024 07:23 Note Text: ANESTHESIOLOGY DAY OF SURGERY NOTE : 1945 Procedure Information Date/Time: 03/19/24 0730 Procedures: EXCISION RECTAL PROCIDENTIA W/ ANASTOMOSIS (Anus) [...] March 19, 2024 TIME: 7:22 AM CSN: [id number] Normal [facility] Colonoscopyon 03-19-2024 Colonoscopy [facility] Gastrointestinal Endoscopy Patient Name: Billie Yeboah Procedure Date: 03/19/2024 7:20 AM Date of : 1945 Admit Type: Outpatient Age: 78 Room: [place] [address] Gender: Female Note Status: Finalized Attending MD: Funmilayo Odell MD, [id number] Procedure: Colonoscopy Indications: Rectal bleeding Providers: Funmilayo [...] the patient. Procedure Code(s): --- Professional --- 39149, Colonoscopy, flexible; with biopsy, single or multiple CPT copyright 2020 [employer]. All rights reserved. The codes documented in this report are preliminary and upon fire control mechanic review may be revised to meet current [...] Loss: Estimated blood loss was minimal. Normal [facility] OPERATIVE NOon 03-19-2024 OPERATIVE NO HNO ID: [id number] Author: FUNMILAYO ODELL MD Service: Colorectal Author Type: Physician Type: Operative Report Filed: 03/19/2024 08:51 Note Text: COLON AND RECTAL SURGERY OPERATIVE REPORT PATIENT NAME: Billie Yeboah ADMISSION DATE: 03/19/2024 LOG ID: [id number] SURGERY/PROCEDURE DATE: 03/19/2024 INCISION/PROCEDURE START TIME: 7:54 AM INCISION CLOSE/PROCEDURE END TIME: 8:47 AM AGE: [age] year old SEX: female SURGEON(S)/PROCEDURA LIST(S) AND RETAIL COVERAGE MERCHANDISER LEAD(S): Surgeons and Role: * Funmilayo Odell MD [...] Division of Colon and Rectal Surgery Normal [facility] CBC panel Auto (Bld)on 02-27 Erythrocyte distribution width (RBC) [Ratio] 12.3 % 11.5 - 15.0 % [facility] Hematocrit (Bld) [Volume fraction] 42.4 % 36.0 - 46.0 % [facility] Hemoglobin (Bld) [Mass/Vol] 13.6 g/dL 11.5 - 15.5 g/dL [facility] Interpretation and review of laboratory results Normal [facility] MCH (RBC) [Entitic mass] 29.6 pg 26.0 - 34.0 pg [facility] MCHC (RBC) [Mass/Vol] 32.1 g/dL 30.5 - 36.0 g/dL [facility] MCV (RBC) [Entitic vol] 92.4 fL 80.0 - 100.0 fL [facility] Nucleated RBC (Bld) [#/Vol] NINF [facility] Platelet mean volume (Bld) [Entitic vol] 9.6 fL 9.0 - 12.7 fL [facility] Platelets (Bld) [#/Vol] 352 10*3/uL [facility] RBC (Bld) [#/Vol] 4.59 10*6/uL 3.90 - 5.2 0 m/uL [facility] WBC (Bld) [#/Vol] 6.15 10*3/uL [facility] Erythrocyte distribution width (RBC) [Ratio] 12.3 % Normal 11.5-15.0 [facility] Comment on above: Order Comment: Speci men Type: BLOOD SPECIMEN Ordering Facility: [facility] Address: [address] [place] [address] Performed By: #### 5 8410-2 #### [facility] CLIA [id number] [facility] [place] [address] [place] Hematocrit (Bld) [Volume fraction] 42.4 % Normal 36.0-46.0 [facility] Comment on above: Order Comment: Speci men Type: BLOOD SPECIMEN Ordering Facility: [facility] Address: [address] [place] [address] Performed By: #### 5 8410-2 #### [facility] [place] [id number] [place] [address] [place] Hemoglobin (Bld) [Mass/Vol] 13.6 g/dL Normal 11.5-15.5 [facility] Comment on above: Order Comment: Speci men Type: BLOOD SPECIMEN Ordering Facility: [facility] Address: [address] [place] [address] Performed By: #### 5 8410-2 #### [facility] [place] [id number] [place] [address] [place] MCH (RBC) [Entitic mass] 29.6 pg Normal 26.0-34.0 [facility] Comment on above: Order Comment: Speci men Type: BLOOD SPECIMEN Ordering Facility: [facility] Address: [address] [place] [address] Performed By: #### 5 8410-2 #### [facility] [place] [id number] [place] [address] [place] MCHC (RBC) [Mass/Vol] 32.1 g/dL Normal 30.5-36.0 [facility] Comment on above: Order Comment: Speci men Type: BLOOD SPECIMEN Ordering Facility: [facility] Address: [address] [place] [address] Performed By: #### 5 8410-2 #### [facility] [place] [id number] [place] [address] [place] MCV (RBC) [Entitic vol] 92.4 fL Normal 80.0-100.0 [facility] Comment on above: Order Comment: Speci men Type: BLOOD SPECIMEN Ordering Facility: [facility] Address: [address] [place] [address] Performed By: #### 5 8410-2 #### [facility] [place] [id number] [address] [place] [address] [place] Nucleated RBC (Bld) [#/Vol] 10*3/uL Normal <0.01 [facility] Comment on above: Order Comment: Speci men Type: BLOOD SPECIMEN Ordering Facility: [facility] Address: [address] [place] [address] Performed By: #### 5 8410-2 #### [facility] CLIA [id number] [address] [place] [address] [place] Platelet mean volume (Bld) [Entitic vol] 9.6 fL Normal 9.0-12.7 [facility] Comment on above: Order Comment: Speci men Type: BLOOD SPECIMEN Ordering Facility: [facility] Address: [address] [place] [address] Performed By: #### 5 8410-2 #### [facility] CLIA [id number] [address] [place] [address] [place] Platelets (Bld) [#/Vol] 352 10*3/uL Normal 150-400 [facility] Comment on above: Order Comment: Speci men Type: BLOOD SPECIMEN Ordering Facility: [facility] Address: [address] [place] [address] Performed By: #### 5 8410-2 #### [facility] CLIA [id number] [address] [place] [address] [place] RBC (Bld) [#/Vol] 4.59 10*6/uL Normal 3.90-5.20 [facility] Comment on above: Order Comment: Speci men Type: BLOOD SPECIMEN Ordering Facility: [facility] Address: [address] [place] [address] Performed By: #### 5 8410-2 #### [facility] CLIA [id number] [address] [place] [address] [place] WBC (Bld) [#/Vol] 6.15 10*3/uL Normal 3.70-11.00 [facility] Comment on above: Order Comment: Speci men Type: BLOOD SPECIMEN Ordering Facility: [facility] Address: [address] [place] [address] Performed By: #### 5 8410-2 #### [facility] CLIA [id number] [facility] [address] [place] Comprehensive metabolic 2000 panelon 02-28-2024 Albumin [Mass/Vol] 4.1 g/dL 3.9 - 4.9 g/dL [facility] ALP [Catalytic activity/Vol] 77 U/L 34 - 123 U/L [facility] ALT [Catalytic activity/Vol] 14 U/L 7 - 38 U/L [facility] Anion gap [Moles/Vol] 12 mmol/L 8 - 15 mmol/L [facility] AST [Catalytic activity/Vol] 18 U/L 13 - 35 U/L [facility] Bilirubin [Mass/Vol] 0.5 mg/dL 0.2 - 1 .3 mg/dL [facility] Calcium [Mass/Vol] 9.4 mg/dL 8.5 - 10. 2 mg/dL [facility] Chloride [Moles/Vol] 102 mmol/L 98 - 10 7 mmol/L [facility] CO2 [Moles/Vol] 27 mmol/L 22 - 30 mmol/L [facility] Creatinine [Mass/Vol] 0.81 mg/dL 0.58 - 0.96 mg/dL [facility] GFR/1.73 sq M.predicted among non-blacks MDRD (S/P/Bld) [Vol rate/Area] 74 mL/min/{1.73_m2} - PINF [facility] [facility] Comment on above: Estimated Glomerular [...] 107 mg/dL High 74 - 99 mg/dL [facility] Comment on above: The [place] Diabete s Association (ADA) provides guidance for [...] Standards of Medical Care in Diabetes 2016, [place] Diabetes Association. Diabetes Care. 2016.39(Suppl 1). Interpretation and review of laboratory results Abnormal [facility] Potassium [Moles/Vol] 4.4 mmol/L 3.7 - 5.1 mmol/L [facility] Protein [Mass/Vol] 7.5 g/dL 6.3 - 8.0 g/dL [facility] Sodium [Moles/Vol] 141 mmol/L 136 - 144 mmol/L [facility] Urea nitrogen [Mass/Vol] 11 mg/dL 7 - 21 mg/dL [facility] Albumin [Mass/Vol] 4.1 g/dL Normal 3.9-4.9 [facility]ital Comment on above: Order Comment: Eliu hooker Type: BLOOD SPECIMEN Ordering Facility: [facility] Address: [address] [place] [address] Performed By: #### 3 016-3, 22839-3 #### [facility] CLIA [id number] [address] [place] [address] [place] ALP [Catalytic activity/Vol] 77 U/L Normal 34-123 [facility] Comment on above: Order Comment: Eliu hooker Type: BLOOD SPECIMEN Ordering Facility: [facility] Address: [address] [place] [address] Performed By: #### 3 016-3, 00365-2 #### [facility] CLIA [id number] [address] [place] [address] [place] ALT [Catalytic activity/Vol] 14 U/L Normal 7-38 [facility] Comment on above: Order Comment: Eliu hooker Type: BLOOD SPECIMEN Ordering Facility: [facility] Address: [address] [place] [address] Performed By: #### 3 016-3, 70699-5 #### [facility] CLIA [id number] [address] [place] [address] [place] Anion gap [Moles/Vol] 12 mmol/L Normal 8-15 [facility] Comment on above: Order Comment: Speci men Type: BLOOD SPECIMEN Ordering Facility: [facility] Address: [address] [place] [address] Performed By: #### 3 016-3, #### [facility] CLIA [id number] [address] [place] [address] [place] AST [Catalytic activity/Vol] 18 U/L Normal 13-35 [facility] Comment on above: Order Comment: Speci men Type: BLOOD SPECIMEN Ordering Facility: [facility] Address: [address] [place] [address] Performed By: #### 3 016-3, #### [facility] CLIA [id number] [address] [place] [address] [place] Bilirubin [Mass/Vol] 0.5 mg/dL Normal 0.2-1.3 [facility] Comment on above: Order Comment: Speci men Type: BLOOD SPECIMEN Ordering Facility: [facility] Address: [address] [place] [address] Performed By: #### 3 016-3, #### [facility] CLIA [id number] [address] [place] [address] [place] Calcium [Mass/Vol] 9.4 mg/dL Normal 8.5-10.2 [facility] Comment on above: Order Comment: Speci men Type: BLOOD SPECIMEN Ordering Facility: [facility] Address: [address] [place] [address] Performed By: #### 3 016-3, #### [facility] CLIA [id number] [address] [place] [address] [place] Chloride [Moles/Vol] 102 mmol/L Normal 98-107 [facility] Comment on above: Order Comment: Speci men Type: BLOOD SPECIMEN Ordering Facility: [facility] Address: [address] [place] [address] Performed By: #### 3 016-3, 78611-0 #### [facility] CLIA [id number] [address] [facility] [place] [address] [place] CO2 [Moles/Vol] 27 mmol/L Normal 22-30 [facility] Comment on above: Order Comment: Speci men Type: BLOOD SPECIMEN Ordering Facility: [facility] Address: [address] [place] [address] Performed By: #### 3 016-3, 99441-4 #### [facility] CLIA [id number] [address] [facility] [address] [place] Creatinine [Mass/Vol] 0.81 mg/dL Normal 0.58-0.96 [facility] Comment on above: Order Comment: Speci men Type: BLOOD SPECIMEN Ordering Facility: [facility] Address: [address] [place] [address] Performed By: #### 3 016-3, 59069-9 #### [facility] CLIA [id number] [address] [facility] [address] [place] Creatinine and Glomerular filtration rate.predicted panel (S/P/Bld) 74 mL/min/1.73m??? Normal >=60 [facility] Comment on above: Order Comment: Speci men Type: BLOOD SPECIMEN Ordering Facility: [facility] Address: [address] [place] [address] Result Comment: Joycelyn mated Glomerular Filtration Rate [...] actual GFR. Performed By: #### 3 016-3, 80335-9 #### [facility] CLIA [id number] [address] [facility] [place] [address] [place] Glucose [Mass/Vol] 107 mg/dL High 74-99 [facility] Comment on above: Order Comment: Speci men Type: BLOOD SPECIMEN Ordering Facility: [facility] Address: [address] [place] [address] Result Comment: The [place] Diabetes Association (ADA) provides guidance for cutoff [...] Standards of Medical Care in Diabetes 2016, [place] Diabetes Association. Diabetes Care. 2016.39(Suppl 1). Performed By: #### 3 016-3, 94938-9 #### [facility] CLIA [id number] [address] [place] [address] [place] Potassium [Moles/Vol] 4.4 mmol/L Normal 3.7-5.1 [facility] Comment on above: Order Comment: Speci men Type: BLOOD SPECIMEN Ordering Facility: [facility] Address: [address] [place] [address] Performed By: #### 3 016-3, 46132-6 #### [facility] CLIA [id number] [address] [place] [address] [place] Protein [Mass/Vol] 7.5 g/dL Normal 6.3-8.0 [facility] Comment on above: Order Comment: Speci men Type: BLOOD SPECIMEN Ordering Facility: [facility] Address: [address] [place] [address] Performed By: #### 3 016-3, 01530-4 #### [facility] CLIA [id number] [address] [place] [address] [place] Sodium [Moles/Vol] 141 mmol/L Normal 136-144 [facility] Comment on above: Order Comment: Speci men Type: BLOOD SPECIMEN Ordering Facility: [facility] Address: [address] [place] [address] Performed By: #### 3 016-3, 78413-5 #### [facility] CLIA [id number] [address] [facility] [address] [place] [facility] Urea nitrogen [Mass/Vol] 11 mg/dL Normal 7- [facility] Comment on above: Order Comment: Speci men Type: BLOOD SPECIMEN Ordering Facility: [facility] Address: [address] [place], [place] [address] Performed By: #### 3 016-3, 53221-4 #### [facility] CLIA [id number] [address] [facility] [address] [place] ECG COMPLETEon 02-28-2024 ECG COMPLETE Ventricular Rate : 113 BPM Atrial Rate : 113 BPM P-R Interval : 166 ms QRS Duration : 86 ms Q-T Interval : 318 ms QTC Calculation(Bazett) : 436 ms Calculated P [place] : 66 degrees Calculated R [place] : -50 degrees Calculated T [place] : 69 degrees Sinus tachycardia Right atrial enlargement Left anterior fascicular block Possible Anterolateral infarct , age undetermined Abnormal ECG No previous ECGs available Confirmed by DANIEL LAZO MD ([id number]) on 03/06/2024 10:31:42 AM NAME : BILLIE YEBOAH PID : [id number] : 1945 Gender : Female Race : ORD : [id number] Procedure Date : Feb 28 2024 13:49:41 Edit Date : Mar 06 2024 10:31:46 Diagnosis: Sinus tachycardia Right atrial enlargement Left anterior fascicular block Possible Anterolateral infarct , age undetermined Abnormal ECG No previous ECGs available Confirmed by DANIEL LAZO MD ([id number]) on 03/06/2024 10:31:42 AM Test Reason : HCS Location : 301 : [facility] Overread By : DANIEL LAZO MD Edited By : DANIEL LAZO MD Referred By : FUNMILAYO ODELL Acquired by : dm, Normal [facility] Free T4 [Mass/Vol]on 024 Interpretation and review of laboratory results Abnormal [facility] HISTORY PHYSICALon HISTORY PHYSICAL HNO ID: [id number] Author: ZAIDA SORIANO PA-C Service: ? Author Type: Physician Commercial Counsel Type: H&P Filed: 03/10/2024 13:47 Note Text: [...] has never had a prior EKG at [facility] before, but has at either [facility] or [facility]. Faxing for records for comparison. 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 On daily Etodolac and has Tramadol for [...] 35 kg/m2 Non-male patient STOP-Bang Score: 1 [id number] Score: [id number] Score: 0 ANESTHESIA FINDINGS: Intubation History: No [...] mg tablet ECG COMPLETE Faxed release to [facility] (more content not included)... Normal [facility] T4 FREE/FREE THYROXINEon Free T4 [Mass/Vol] 1.9 ng/dL High 0.9 - 1.7 ng/dL [facility] T4 Free SerPl-mCncon 024 Free T4 [Mass/Vol] 1.9 ng/dL High 0.9-1.7 [facility]spichen Comment on above: Order Comment: Eliu hooker Type: BLOOD SPECIMEN Ordering Facility: [facility] Address: [address] [place] [address] Performed By: #### 3 024-7 #### [facility] CLIA [id number] [address] [place] [address] [place] THYROID STIMULATING HORMONEo n 02-28-2024 TSH Qn 0.120 m[IU]/L Low [facility] TSH Qnon 02-28-2024 Interpretation and review of laboratory results Abnormal [facility] TSH SerPl-aCncon 02-28-2024 TSH Qn 0.120 m[IU]/L Low 0.270-4.200 [facility] Comment on above: Order Comment: Eliu hooker Type: BLOOD SPECIMEN Ordering Facility: [facility] Address: [address] [place] [address] Performed By: #### 3 016-3, 99317-0 #### [facility] CLIA [id number] [address] [place] [address] [place] CNOVon 02-23-2024 CNOV Office Visit ([facility]) BILLIE YEBOAH ([id number]) 1945 F Date Time Provider Department 02/23/24 2:40 PM FUNMILAYO ODELL [facility] During your visit today, we recorded the [...] ALLERGIES Allergen Reactions Ciprofloxacin Rash, Unknown Nitrofurantoin [place]* Other: See Comments, GI Upset Sulfamethoxazole-Tr* Other: [...] exam reveals no gross blood or masses [employer] Worker present: Yes, Sarah Hess Anoscopy: The patient was placed in chest-knee position. After digital exam with a lubricated finger, the scope was easily inserted. Enlarged anterior prolapsing mucosa noted. Otherwise normal mucosa was noted. Anoscopy completed. Assessment Assessment and Plan: Billie Yeboha is a 78 year old female with [...] MD Colorectal Surgery Referring Provider: MANOJ FORBES [[id number]] Allergies As of Date: 02/23/2024 Noted Allergy Reaction CIPROFLOXACIN 05/31/2013 2 - Rash 16 - Unknown NITROFURANTOIN MONOHYD/M-CRYST 10/27/2022 14 - Other: See Comments 8 - GI Upset SULFAMETHOXAZOLE-TRI METHOPRIM 05/31/2013 14 - Other: See Comments 2 - Rash Date Reviewed: 02/23/2024 Reviewed by: Sarah Marroquin OCCA - Fully Assessed Reason for Visit: New Patient [172] Hemorrhoids [48471] Rectal Bleeding [202] Primary Visit Diagnosis:Hemorrhoid s, [...] Encounter Status:Closed by FUNMILAYO ODELL on 02/25/24 Normal [facility] CNOVon 11-03-2023 CNOV Office Visit ([facility]) BILLIE YEBOAH ([id number]) 1945 F Date Time Provider Department 11/03/23 2:40 PM FUNMILAYO ODELL [facility] During your visit today, we recorded the following information about you: Temperature Pulse Blood pressure 97.1 degrees 85/minute 179/87 Shelly Bingham, JOHN PAUL 11/03/2023 2:19 PM Signed What is the [...] for internal providers or letter via the [employer] for external providers. Chief Complaint: [...] ALLERGIES Allergen Reactions Ciprofloxacin Rash, Unknown Nitrofurantoin [place]* Other: See Comments, GI Upset Sulfamethoxazole-Tr* Other: [...] has a weak squeeze and discoordinated push [employer] Worker present: Yes, Sarah Z Anoscopy: The patient [...] (more content not included)... Normal [facility] BILLIE YEBOAH ([id number]) 1945 F Date Time Provider Department 10/11/23 FUNMILAYO ODELL [facility] During your visit today, we recorded the [...] CARLOS GUNN on 10/11/23 Normal [facility] CBC AUTO DIFFon 08-23-2022 BASO # 0.0 103/ul Normal 0.0-0.1 [facility] Comment on above: Performed By: #### Mike DE LA TORRE VITAD #### [facility] [address] [address] [address] Ryann Pearce Basophils/100 WBC (Bld) 1.0 % Normal 0.2-2.0 [facility] Comment on above: Performed By: #### Mike DE LA TORRE VITAD #### [facility] [address] [address] [address] Ryann Pearce EO # 0.2 103/ul Normal 0.0-0.7 [facility] Comment on above: Performed By: #### I WIL VITAD #### [facility] [address] [place], [place] [address] Dr. Ryann Pearce Eosinophils/100 WBC (Bld) 3.8 % Normal 0.9-7.0 [facility] Comment on above: Performed By: #### Mike DE LA TORRE VITAD #### [facility] [address] [address] [address] Ryann Pearce Erythrocyte distribution width (RBC) [Ratio] 12.1 % Normal 11.0-15.0 [facility] Comment on above: Performed By: #### Mike DE LA TORRE VITAD #### [facility] [address] [place] [address] Dr. Ryann Pearce Hematocrit (Bld) [Volume fraction] 35.5 % Critically low 36.0-48.0 [facility] Comment on above: Performed By: #### Mike DE LA TORRE VITAD #### [facility] [address] [place] [address] Dr. Ryann Pearce Hemoglobin (Bld) [Mass/Vol] 11.7 g/dL Critically low 12.0-16.0 [facility] Comment on above: Performed By: #### Mike DE LA TORRE VITAD #### [facility] [address] [place] [address] Dr. Ryann Pearce IG # 0.01 10e3/ul Normal 0.00-0.03 [facility] Comment on above: Performed By: #### Mike DE LA TORRE VITAD #### [facility] [address] [place] [address] Dr. Ryann Pearce IG % 0.3 % Normal 0.0-0.5 [facility] Comment on above: Performed By: #### Mike DE LA TORRE VITAD #### [facility] [address] [place] [address] Dr. Ryann Pearce LYMPH # 1.2 103/ul Normal 1.2-3.8 [facility] Comment on above: Performed By: #### Mike DE LA TORRE VITAD #### [facility] [address] [place] [address] Dr. Ryann Pearce Lymphocytes/100 WBC (Bld) 31.5 % Normal 20.5-60.0 [facility] Comment on above: Performed By: #### Mike DE LA TORRE VITAD #### [facility] [address] [place] [address] Dr. Ryann Pearce MANUAL DIFF REQ NO Normal [facility] Comment on above: Performed By: #### Mike DE LA TORRE VITAD #### [facility] [address] [place] [address] Dr. Ryann Pearce MCH (RBC) [Entitic mass] 29.5 pg Normal 26.7-34.0 [facility] Comment on above: Performed By: #### I WIL, VITAD #### [facility] [address] [place] [address] Dr. Ryann Pearce MCHC (RBC) [Mass/Vol] 33.0 g/dL Normal 29.9-35.2 [facility] Comment on above: Performed By: #### Mike DE LA TORRE, VITAD #### [facility] [address] [place] [address] Dr. Ryann Pearce MCV (RBC) [Entitic vol] 89.6 fL Normal 81.0-99.0 [facility] Comment on above: Performed By: #### Mike DE LA TORRE, VITAD #### [facility] [address] [place] [address] Dr. Ryann Pearce MONO # 0.5 103/ul Normal 0.3-0.8 [facility] Comment on above: Performed By: #### Mike DE LA TORRE VITAD #### [facility] [address] [place] [address] Dr. Ryann Pearce Monocytes/100 WBC (Bld) 13.2 % Critically high 1.7-12.0 [facility] Comment on above: Performed By: #### Mike DE LA TORRE, VITAD #### [facility] [address] [place] [address] Dr. Ryann Pearce NEUT # 2.0 103/ul Normal 1.4-6.5 [facility] Comment on above: Performed By: #### Mike DE LA TORRE, VITAD #### [facility] [address] [place] [address] Dr. Ryann Pearce Neutrophils/100 WBC (Bld) 50.2 % Normal 43.0-75.0 [facility] Comment on above: Performed By: #### Mike DE LA TORRE, VITAD #### [facility] [address] [place] [address] Dr. Ryann Pearce Platelet mean volume (Bld) [Entitic vol] 8.9 fL Critically low 9.5-13.5 [facility] Comment on above: Performed By: #### Mike DE LA TORRE, VITAD #### [facility] [address] [address] [address] Ryann Pearce PLT 253 103/ul Normal 150-450 [facility] Comment on above: Performed By: #### I WIL VITAD #### [facility] [address] [place] [address] Dr. Ryann Pearce RBC 3.96 106/ul Critically low 4.20-5.40 [facility] Comment on above: Performed By: #### I WIL VITAD #### [facility] [address] [place] [address] Dr. Ryann Pearce WBC 3.9 103/ul Critically low 4.0-11.0 [facility] Comment on above: Performed By: #### I WIL VITAD #### [facility] [address] [place] [address] Dr. Ryann Pearce PROF 14(COMP METB)on 023 Albumin [Mass/Vol] 3.3 g/dL Critically low 3.4-5.0 [facility] Comment on above: Performed By: #### I WIL VITAD #### [facility] [address] [place] [address] Dr. Ryann Pearce Albumin/Globulin [Mass ratio] 1.0 {ratio} Normal [facility] Comment on above: Performed By: #### I WIL VITAD #### [facility] [address] [place] [address] Dr. Ryann Pearce ALP [Catalytic activity/Vol] 65 U/L Normal 46-116 [facility] Comment on above: Performed By: #### I WIL VITAD #### [facility] [address] [place] [address] Dr. Ryann Pearce ALT [Catalytic activity/Vol] 30 U/L Normal 14-59 [facility] Comment on above: Performed By: #### I WIL, VITAD #### [facility] [address] [place] [address] Dr. Ryann Pearce Anion gap [Moles/Vol] 10.0 mmol/L Normal [facility] Comment on above: Performed By: #### I WIL, VITAD #### [facility] [address] [address] [address] Ryann Pearce AST [Catalytic activity/Vol] 26 U/L Normal 15-37 [facility] Comment on above: Performed By: #### I WIL, VITAD #### [facility] [address] [address] [address] Ryann Pearce Bilirubin [Mass/Vol] 0.4 mg/dL Normal 0.2-1.0 [facility] Comment on above: Performed By: #### I WIL, VITAD #### [facility] [address] [place] [address] Dr. Ryann Pearce Calcium [Mass/Vol] 8.8 mg/dL Normal 8.5-10.1 [facility] Comment on above: Performed By: #### I WIL, VITAD #### [facility] [address] [place] [address] Dr. Ryann Pearce Chloride [Moles/Vol] 105 mmol/L Normal 98-107 [facility] Comment on above: Performed By: #### I WIL, VITAD #### [facility] [address] [place] [address] Dr. Ryann Pearce CO2 [Moles/Vol] 30.1 mmol/L Normal 21.0-32.0 [facility] Comment on above: Performed By: #### I WIL, VITAD #### [facility] [address] [place] [address] Dr. Ryann Pearce Creatinine [Mass/Vol] 0.90 mg/dL Normal 0.55-1.02 [facility] Comment on above: Performed By: #### I WIL, VITAD #### [facility] [address] [place] [address] Dr. Ryann Pearce EGFR-AF PARAGUAYAN >60 Normal >=60 [facility] Comment on above: Performed By: #### I WIL, VITAD #### [facility] [address] [place] [address] Dr. Ryann Pearce EGFR-NON AF PARAGUAYAN >60 Normal >=60 [facility] Comment on above: Performed By: #### I WIL, VITAD #### [facility] [address] [place] [address] Dr. Ryann Pearce Globulin (S) [Mass/Vol] 3.3 g/dL Normal [facility] Comment on above: Performed By: #### I WIL, VITAD #### [facility] [address] [place] [address] Dr. Ryann Pearce Glucose [Mass/Vol] 100 mg/dL Normal 74-[address] [facility] Comment on above: Performed By: #### I WIL, VITAD #### [facility] [address] [place] [address] Dr. Ryann Pearce Potassium [Moles/Vol] 4.1 mmol/L Normal 3.5-5.1 [facility] Comment on above: Performed By: #### I WIL, VITAD #### [facility] [address] [place] [address] Dr. Ryann Pearce Protein [Mass/Vol] 6.6 g/dL Normal 6.4-8.[address] [facility] Comment on above: Performed By: #### I WIL VITAD #### [facility] [address] [place] [address] Dr. Ryann Pearce Sodium [Moles/Vol] 141 mmol/L Normal 136-145 [facility] Comment on above: Performed By: #### I WIL, VITAD #### [facility] [address] [place] [address] Dr. Ryann Pearce Urea nitrogen [Mass/Vol] 13.0 mg/dL Normal 7.0-18.0 [facility] Comment on above: Performed By: #### I WIL, VITAD #### [facility] [address] [place] [address] Dr. Ryann Pearce Urea nitrogen/Creatinine [Mass ratio] 14.4 mg/mg Normal [facility] Comment on above: Performed By: #### I WIL, VITAD #### [facility] [address] [place] [address] Dr. Ryann Pearce CBC AUTO DIFFon 06-06-2022 BASO # 0.0 103/ul Normal 0.0-0.1 [facility] Comment on above: Performed By: #### Mike DE LA TORRE VITAD #### [facility] [address] [place] [address] Dr. Ryann Pearce Basophils/100 WBC (Bld) 1.2 % Normal 0.2-2.0 [facility] Comment on above: Performed By: #### Mike DE LA TORRE VITAD #### [facility] [address] [place] [address] Dr. Ryann Pearce EO # 0.1 103/ul Normal 0.0-0.7 [facility] Comment on above: Performed By: #### Mike DE LA TORRE VITAD #### [facility] [address] [place] [address] Dr. Ryann Pearce Eosinophils/100 WBC (Bld) 3.3 % Normal 0.9-7.0 [facility] Comment on above: Performed By: #### Mike DE LA TORRE VITAD #### [facility] [address] [place] [address] Dr. Ryann Pearce Erythrocyte distribution width (RBC) [Ratio] 12.5 % Normal 11.0-15.0 [facility] Comment on above: Performed By: #### Mike DE LA TORRE VITAD #### [facility] [address] [place] [address] Dr. Ryann Pearce Hematocrit (Bld) [Volume fraction] 38.7 % Normal 36.0-48.0 [facility] Comment on above: Performed By: #### Mike DE LA TORRE VITAD #### [facility] [address] [place] [address] Dr. Ryann Pearce Hemoglobin (Bld) [Mass/Vol] 12.8 g/dL Normal 12.0-16.0 [facility] Comment on above: Performed By: #### Mike DE LA TORRE VITAD #### [facility] [address] [place] [address] Dr. Ryann Pearce IG # 0.01 10e3/ul Normal 0.00-0.03 [facility] Comment on above: Performed By: #### Mike DE LA TORRE VITAD #### [facility] [address] [place] [address] Dr. Ryann Pearce IG % 0.3 % Normal 0.0-0.5 [facility] Comment on above: Performed By: #### I WIL, VITAD #### [facility] [address] [place] [address] Dr. Ryann Pearce LYMPH # 1.1 103/ul Critically low 1.2-3.8 [facility] Comment on above: Performed By: #### I WIL, VITAD #### [facility] [address] [place] [address] Dr. Ryann Pearce Lymphocytes/100 WBC (Bld) 32.0 % Normal 20.5-60.0 [facility] Comment on above: Performed By: #### I WIL, VITAD #### [facility] [address] [place] [address] Dr. Ryann Pearce MANUAL DIFF REQ NO Normal [facility] Comment on above: Performed By: #### I WIL VITAD #### [facility] [address] [place] [address] Dr. Ryann Pearce MCH (RBC) [Entitic mass] 29.6 pg Normal 26.7-34.0 [facility] Comment on above: Performed By: #### I WIL, VITAD #### [facility] [address] [place] [address] Dr. Ryann Pearce MCHC (RBC) [Mass/Vol] 33.1 g/dL Normal 29.9-35.2 [facility] Comment on above: Performed By: #### I WIL, VITAD #### [facility] [address] [place] [address] Dr. Ryann Pearce MCV (RBC) [Entitic vol] 89.4 fL Normal 81.0-99.0 [facility] Comment on above: Performed By: #### I WIL, VITAD #### [facility] [address] [place] [address] Dr. Ryann Pearce MONO # 0.4 103/ul Normal 0.3-0.8 [facility] Comment on above: Performed By: #### I WIL VITAD #### [facility] [address] [address] [address] Ryann Pearce Monocytes/100 WBC (Bld) 11.1 % Normal 1.7-12.0 [facility] Comment on above: Performed By: #### I WIL, VITAD #### [facility] [address] [place] [address] Dr. Ryann Pearce NEUT # 1.7 103/ul Normal 1.4-6.5 [facility] Comment on above: Performed By: #### I WIL, VITAD #### [facility] [address] [place] [address] Dr. Ryann Pearce Neutrophils/100 WBC (Bld) 52.1 % Normal 43.0-75.0 [facility] Comment on above: Performed By: #### I WIL, VITAD #### [facility] [address] [place] [address] Dr. Ryann Pearce Platelet mean volume (Bld) [Entitic vol] 9.3 fL Critically low 9.5-13.5 [facility] Comment on above: Performed By: #### I WIL VITAD #### [facility] [address] [place] [address] Dr. Ryann Pearce PLT 255 103/ul Normal 150-450 [facility] Comment on above: Performed By: #### I WIL, VITAD #### [facility] [address] [place] [address] Dr. Ryann Pearce RBC 4.33 106/ul Normal 4.20-5.40 [facility] Comment on above: Performed By: #### I WIL, VITAD #### [facility] [address] [place] [address] Dr. Ryann Pearce WBC 3.3 103/ul Critically low 4.0-11.0 [facility] Comment on above: Performed By: #### I WIL VITAD #### [facility] [address] [place] [address] Dr. Ryann Pearce FREE THYROXINE INDEX T7on FTI 2.96 Normal 1.30-4.50 [facility] Comment on above: Performed By: #### T SH, LIPID, T7, CMP #### [facility] [address] [address] [address] Ryann Pearce T3U 34.0 % Normal 30.0-39.0 [facility] Comment on above: Performed By: #### T SH, LIPID, T7, CMP #### [facility] [address] [address] [address] Ryann Pearce T4 [Mass/Vol] 8.70 ug/dL Normal 4.80-13.90 [facility] Comment on above: Performed By: #### T SH, LIPID, T7, CMP #### [facility] [address] [address] [address] Ryann Pearce GLYCOHEMOGLOBIN A1Con 2021 ADA RECOMMENDATION SEE BELOW Normal [facility] Comment on above: Result Comment: ADA RECOMMENDED LIMIT 4.0 - 6.0 ADA THERAPEUTIC TARGET < 7.0 ACTION SUGGESTED > 7.0 Performed By: #### A 1C #### [facility] [address] [address] [address] Ryann Pearce Glucose [Mass/Vol] 105 mg/dL Normal [facility] Comment on above: Performed By: #### A 1C #### [facility] [address] [address] [address] Ryann Pearce HbA1c (Bld) [Mass fraction] 5.3 % Normal 4.5-6.2 [facility] Comment on above: Performed By: #### A 1C #### [facility] [address] [address] [address] Ryann Pearce IRONon 06-06-2022 Iron [Mass/Vol] 104.0 ug/dL Normal 50.0-170.0 [facility] Comment on above: Performed By: #### I NIKI DE LA TORRE #### [facility] [address] [place] [address] Dr. Ryann Pearce LIPID PROFILEon 06-06-2022 CHOL-HDL RATIO NORM SEE BELOW Normal [facility] Comment on above: Result Comment: 3.3 - 4.4 LOW RISK 4.4 - 7.1 AVERAGE RISK 7.1 - 11.0 MODERATE RISK >11.0 HIGH RISK Performed By: #### T SH, LIPID, T7, CMP #### [facility] [address] [address] [address] Ryann Pearce Cholesterol [Mass/Vol] 160 mg/dL Normal <=200 [facility] Comment on above: Performed By: #### T SH, LIPID, T7, CMP #### [facility] [address] [address] [address] Ryann Pearce Cholesterol in HDL [Mass/Vol] 75 mg/dL Critically high 40-60 [facility] Comment on above: Performed By: #### T SH, LIPID, T7, CMP #### [facility] [address] [place] [address] Dr. Ryann Pearce Cholesterol in LDL [Mass/Vol] 66.6 mg/dL Normal [facility] Comment on above: Performed By: #### T SH, LIPID, T7, CMP #### [facility] [address] [place] [address] Dr. Ryann Pearce Cholesterol.total/Chol esterol in HDL [Mass ratio] 2.1 {ratio} Normal [facility] Comment on above: Performed By: #### T SH, LIPID, T7, CMP #### [facility] [address] [place] [address] Dr. Ryann Pearce HDL NORMAL > or = 60 mg/dl - LOW CARDIOVASCULAR RISK <40 mg/dl - HIGH CARDIOVASCULAR RISK Normal [facility] Comment on above: Performed By: #### T SH, LIPID, T7, CMP #### [facility] [address] [place] [address] Dr. Ryann Pearce LDL CALC NORMAL SEE BELOW Normal [facility] Comment on above: Result Comment: <100 mg/dl OPTIMAL 100 - 129 mg/dl NEAR OR ABOVE OPTIMAL 130 - 159 mg/dl BORDERLINE HIGH 160 - 189 mg/dl HIGH >190 mg/dl VERY HIGH Performed By: #### T SH, LIPID, T7, CMP #### [facility] [address] [place] [address] Dr. Ryann Pearce Triglyceride [Mass/Vol] 92 mg/dL Normal <=150 [facility] Comment on above: Performed By: #### T SH, LIPID, T7, CMP #### [facility] [address] [address] [address] Ryann Pearce VLDL CALC 18.4 mg/dL Normal [facility] Comment on above: Performed By: #### T SH, LIPID, T7, CMP #### [facility] [address] [address] [address] Ryann Pearce PROF 14(COMP METB)on 022 Albumin [Mass/Vol] 3.4 g/dL Normal 3.4-5.0 [facility] Comment on above: Performed By: #### T SH, LIPID, T7, CMP #### [facility] [address] [place] [address] Dr. Ryann Pearce Albumin/Globulin [Mass ratio] 1.0 {ratio} Normal [facility] Comment on above: Performed By: #### T SH, LIPID, T7, CMP #### [facility] [address] [place] [address] Dr. Ryann Pearce ALP [Catalytic activity/Vol] 71 U/L Normal 46-116 [facility] Comment on above: Performed By: #### T SH, LIPID, T7, CMP #### [facility] [address] [place] [address] Dr. Ryann Pearce ALT [Catalytic activity/Vol] 19 U/L Normal 14-59 [facility] Comment on above: Performed By: #### T SH, LIPID, T7, CMP #### [facility] [address] [place] [address] Dr. Ryann Pearce Anion gap [Moles/Vol] 7.8 mmol/L Normal [facility] Comment on above: Performed By: #### T SH, LIPID, T7, CMP #### [facility] [address] [place] [address] Dr. Ryann Pearce AST [Catalytic activity/Vol] 21 U/L Normal 15-37 [facility] Comment on above: Performed By: #### T SH, LIPID, T7, CMP #### [facility] [address] [place] [address] Dr. Ryann Pearce Bilirubin [Mass/Vol] 0.6 mg/dL Normal 0.2-1.0 [facility] Comment on above: Performed By: #### T SH, LIPID, T7, CMP #### [facility] [address] [address] [address] Ryann Pearce Calcium [Mass/Vol] 8.7 mg/dL Normal 8.5-10.1 [facility] Comment on above: Performed By: #### T SH, LIPID, T7, CMP #### [facility] [address] [address] [address] Ryann Pearce Chloride [Moles/Vol] 103 mmol/L Normal 98-107 [facility] Comment on above: Performed By: #### T SH, LIPID, T7, CMP #### [facility] [address] [address] [address] Ryann Pearce CO2 [Moles/Vol] 34.4 mmol/L Critically high 21.0-32.0 [facility] Comment on above: Performed By: #### T SH, LIPID, T7, CMP #### [facility] [address] [address] [address] Ryann Pearce Creatinine [Mass/Vol] 0.75 mg/dL Normal 0.55-1.02 [facility] Comment on above: Performed By: #### T SH, LIPID, T7, CMP #### [facility] [address] [address] [address] Ryann Pearce EGFR-AF PARAGUAYAN >60 Normal >=60 [facility] Comment on above: Performed By: #### T SH, LIPID, T7, CMP #### [facility] [address] [address] [address] Ryann Pearce EGFR-NON AF PARAGUAYAN >60 Normal >=60 [facility] Comment on above: Performed By: #### T SH, LIPID, T7, CMP #### [facility] [address] [address] [address] Ryann Pearce Globulin (S) [Mass/Vol] 3.5 g/dL Normal [facility] Comment on above: Performed By: #### T SH, LIPID, T7, CMP #### [facility] [address] [address] [address] Ryann Pearce Glucose [Mass/Vol] 95 mg/dL Normal 74-106 [facility] Comment on above: Performed By: #### T SH, LIPID, T7, CMP #### [facility] [address] [place] [address] Dr. Ryann Pearce Potassium [Moles/Vol] 4.2 mmol/L Normal 3.5-5.1 [facility] Comment on above: Performed By: #### T SH, LIPID, T7, CMP #### [facility] [address] [place] [address] Dr. Ryann Pearce Protein [Mass/Vol] 6.9 g/dL Normal 6.4-8.[address] [facility] Comment on above: Performed By: #### T SH, LIPID, T7, CMP #### [facility] [address] [place] [address] Dr. Ryann Pearce Sodium [Moles/Vol] 141 mmol/L Normal 136-145 [facility] Comment on above: Performed By: #### T SH, LIPID, T7, CMP #### [facility] [address] [place] [address] Dr. Ryann Pearce Urea nitrogen [Mass/Vol] 10.0 mg/dL Normal 7.0-18.0 [facility] Comment on above: Performed By: #### T SH, LIPID, T7, CMP #### [facility] [address] [place] [address] Dr. Ryann Pearce Urea nitrogen/Creatinine [Mass ratio] 13.3 mg/mg Normal [facility] Comment on above: Performed By: #### T SH, LIPID, T7, CMP #### [facility] [address] [place] [address] Dr. Ryann Pearce TSHon 06-06-2022 TSH 0.151 uIU/mL Critically low 0.358-3.740 [facility] Comment on above: Performed By: #### T SH, LIPID, T7, CMP #### [facility] [address] [address] [address] Ryann Pearce VITAMIN D 25 OHon 06-06-2022 VIT D 25-OH 75.4 ng/mL Normal [facility] Comment on above: Performed By: #### I WIL VITAD #### [facility] [address] [address] [address] Ryann Pearce VIT D RANGES SEE BELOW Normal [facility] Comment on above: Result Comment: <20 ng/mL Vit D deficient 20 - <30 ng/mL Vit D insufficient 30 - 100 ng/mL Vit D sufficient >100 ng/mL Potential Toxicity Performed By: #### I WIL VITAD #### [facility] [address] [address] [address] Ryann Pearce MG MAMM SCREEN 3D KRISTINA CADon 05-11-2022 MG MAMM SCREEN 3D KRISTINA CAD Patient: BILLIE YEBOAH Exam Date: 05/11/2022 : 1945 Gender:F Ordering : DR GISELLA PORTER . Admission #: [id number] Family : Order #: [id number] CLICK HERE TO VIEW EXAM RADIOLOGY REPORT [...] breast cancer at age 80. LOCATION: [facility] BREAST COMPOSITION: Scattered areas fibroglandular density. [...] MD on 05/11/2022 at 12:45 Normal [facility] CBC AUTO DIFFon 02-21-2022 BASO # 0.0 103/ul Normal 0.0-0.1 [facility] Comment on above: Performed By: #### I WIL VITAD #### [facility] [address] [place] [address] Dr. Ryann Pearce Basophils/100 WBC (Bld) 0.5 % Normal 0.2-2.0 [facility] Comment on above: Performed By: #### Mike DE LA TORRE VITAD #### [facility] [address] [place] [address] Dr. Ryann Pearce EO # 0.2 103/ul Normal 0.0-0.7 [facility] Comment on above: Performed By: #### Mike DE LA TORRE VITAD #### [facility] [address] [place] [address] Dr. Ryann Pearce Eosinophils/100 WBC (Bld) 3.9 % Normal 0.9-7.0 [facility] Comment on above: Performed By: #### Mike DE LA TORRE VITAD #### [facility] [address] [place] [address] Dr. Ryann Pearce Erythrocyte distribution width (RBC) [Ratio] 12.8 % Normal 11.0-15.0 [facility] Comment on above: Performed By: #### Mike DE LA TORRE VITAD #### [facility] [address] [place] [address] Dr. Ryann Pearce Hematocrit (Bld) [Volume fraction] 36.5 % Normal 36.0-48.0 [facility] Comment on above: Performed By: #### Mike DE LA TORRE VITAD #### [facility] [address] [place] [address] Dr. Ryann Pearce Hemoglobin (Bld) [Mass/Vol] 11.9 g/dL Critically low 12.0-16.0 [facility] Comment on above: Performed By: #### Mike DE LA TORRE VITAD #### [facility] [address] [place] [address] Dr. Ryann Pearce IG # 0.01 10e3/ul Normal 0.00-0.03 [facility] Comment on above: Performed By: #### Mike DE LA TORRE VITAD #### [facility] [address] [address] [address] Ryann Pearce IG % 0.2 % Normal 0.0-0.5 [facility] Comment on above: Performed By: #### I WIL, VITAD #### [facility] [address] [place] [address] Dr. Ryann Pearce LYMPH # 1.1 103/ul Critically low 1.2-3.8 [facility] Comment on above: Performed By: #### I WIL, VITAD #### [facility] [address] [place] [address] Dr. Ryann Pearce Lymphocytes/100 WBC (Bld) 25.5 % Normal 20.5-60.0 [facility] Comment on above: Performed By: #### I WIL, VITAD #### [facility] [address] [place] [address] Dr. Ryann Pearce MANUAL DIFF REQ NO Normal [facility] Comment on above: Performed By: #### I WIL VITAD #### [facility] [address] [place] [address] Dr. Ryann Pearce MCH (RBC) [Entitic mass] 29.6 pg Normal 26.7-34.0 [facility] Comment on above: Performed By: #### I WIL, VITAD #### [facility] [address] [place] [address] Dr. Ryann Pearce MCHC (RBC) [Mass/Vol] 32.6 g/dL Normal 29.9-35.2 [facility] Comment on above: Performed By: #### I WIL, VITAD #### [facility] [address] [place] [address] Dr. Ryann Pearce MCV (RBC) [Entitic vol] 90.8 fL Normal 81.0-99.0 [facility] Comment on above: Performed By: #### I WIL, VITAD #### [facility] [address] [place] [address] Dr. Ryann Pearce MONO # 0.4 103/ul Normal 0.3-0.8 [facility] Comment on above: Performed By: #### I WIL, VITAD #### [facility] [address] [address] [address] Ryann Pearce Monocytes/100 WBC (Bld) 10.4 % Normal 1.7-12.0 [facility] Comment on above: Performed By: #### I WIL, VITAD #### [facility] [address] [place] [address] Dr. Ryann Pearce NEUT # 2.5 103/ul Normal 1.4-6.5 [facility] Comment on above: Performed By: #### I WIL, VITAD #### [facility] [address] [place] [address] Dr. Ryann Pearce Neutrophils/100 WBC (Bld) 59.5 % Normal 43.0-75.0 [facility] Comment on above: Performed By: #### I WIL, VITAD #### [facility] [address] [place] [address] Dr. Ryann Pearce Platelet mean volume (Bld) [Entitic vol] 9.1 fL Critically low 9.5-13.5 [facility] Comment on above: Performed By: #### I WIL, VITAD #### [facility] [address] [place] [address] Dr. Ryann Pearce PLT 283 103/ul Normal 150-450 [facility] Comment on above: Performed By: #### I WIL, VITAD #### [facility] [address] [place] [address] Dr. Ryann Pearce RBC 4.02 106/ul Critically low 4.20-5.40 [facility] Comment on above: Performed By: #### I WIL, VITAD #### [facility] [address] [place] [address] Dr. Ryann Pearce WBC 4.2 103/ul Normal 4.0-11.0 [facility] Comment on above: Performed By: #### I WIL, VITAD #### [facility] [address] [place] [address] Dr. Ryann Pearce PROF 14(COMP METB)on 022 Albumin [Mass/Vol] 3.5 g/dL Normal 3.4-5.0 [facility] Comment on above: Performed By: #### I WIL, VITAD #### [facility] [address] [place] [address] Dr. Ryann Pearce Albumin/Globulin [Mass ratio] 1.0 {ratio} Normal [facility] Comment on above: Performed By: #### I WIL, VITAD #### [facility] [address] [address] [address] Ryann Pearce ALP [Catalytic activity/Vol] 68 U/L Normal 46-116 [facility] Comment on above: Performed By: #### I WIL, VITAD #### [facility] [address] [place] [address] Dr. Ryann Pearce ALT [Catalytic activity/Vol] 22 U/L Normal 14-59 [facility] Comment on above: Performed By: #### I WIL, VITAD #### [facility] [address] [place] [address] Dr. Ryann Pearce Anion gap [Moles/Vol] 11.8 mmol/L Normal [facility] Comment on above: Performed By: #### I WIL, VITAD #### [facility] [address] [place] [address] Dr. Ryann Pearce AST [Catalytic activity/Vol] 21 U/L Normal 15-37 [facility] Comment on above: Performed By: #### I WIL, VITAD #### [facility] [address] [address] [address] Ryann Pearce Bilirubin [Mass/Vol] 0.5 mg/dL Normal 0.2-1.0 [facility] Comment on above: Performed By: #### I WIL, VITAD #### [facility] [address] [address] [address] Ryann Pearce Calcium [Mass/Vol] 8.9 mg/dL Normal 8.5-10.1 [facility] Comment on above: Performed By: #### I WIL, VITAD #### [facility] [address] [place] [address] Dr. Ryann Pearce Chloride [Moles/Vol] 104 mmol/L Normal 98-107 [facility] Comment on above: Performed By: #### Mike DE LA TORRE, VITAD #### [facility] [address] [place] [address] Dr. Ryann Pearce CO2 [Moles/Vol] 29.1 mmol/L Normal 21.0-32.0 [facility] Comment on above: Performed By: #### Mike DE LA TORRE, VITAD #### [facility] [address] [place] [address] Dr. Ryann Pearce Creatinine [Mass/Vol] 0.66 mg/dL Normal 0.55-1.02 [facility] Comment on above: Performed By: #### Mike DE LA TORRE, VITAD #### [facility] [address] [place] [address] Dr. Ryann Pearce EGFR-AF PARAGUAYAN >60 Normal >=60 [facility] Comment on above: Performed By: #### Mike DE LA TORRE, VITAD #### [facility] [address] [place] [address] Dr. Ryann Pearce EGFR-NON AF PARAGUAYAN >60 Normal >=60 [facility] Comment on above: Performed By: #### Mike DE LA TORRE, VITAD #### [facility] [address] [place] [address] Dr. Ryann Pearce Globulin (S) [Mass/Vol] 3.4 g/dL Normal [facility] Comment on above: Performed By: #### Mike DE LA TORRE, VITAD #### [facility] [address] [place] [address] Dr. Ryann Pearce Glucose [Mass/Vol] 106 mg/dL Normal 74-106 [facility] Comment on above: Performed By: #### I WIL, VITAD #### [facility] [address] [place] [address] Dr. Ryann Pearce Potassium [Moles/Vol] 3.9 mmol/L Normal 3.5-5.1 [facility] Comment on above: Performed By: #### Mike DE LA TORRE, VITAD #### [facility] [address] [place] [address] Dr. Ryann Pearce Protein [Mass/Vol] 6.9 g/dL Normal 6.4-8.2 [facility] Comment on above: Performed By: #### I WIL, VITAD #### [facility] [address] [address] [address] Ryann Pearce Sodium [Moles/Vol] 141 mmol/L Normal 136-145 [facility] Comment on above: Performed By: #### I WIL, VITAD #### [facility] [address] [address] [address] Ryann Pearce Urea nitrogen [Mass/Vol] 14.0 mg/dL Normal 7.0-18.0 [facility] Comment on above: Performed By: #### I WIL, VITAD #### [facility] [address] [place] [address] Dr. Ryann Pearce Urea nitrogen/Creatinine [Mass ratio] 21.2 mg/mg Normal [facility] Comment on above: Performed By: #### I WIL, VITAD #### [facility] [address] [address] [address] Ryann Pearce XR knee RT 3Von 02-02-2022 XR knee RT 3V [facility] [employer] Other XR knee RT 3V [facility] [employer] Other XR knee RT [address]V [address] [place] [address] [employer] Other XR knee RT 3V [address] [address] [employer] Other XR knee RT 3V XRay Report [employer] Other XR knee RT 3V Signed [employer] Other XR knee RT 3V Patient: Billie Yeboah MR#: [id number] [employer] Other XR knee RT 3V [id number] [place] [employer] Other XR knee RT 3V : 1945 Acct:[id number] [place] [employer] Other XR knee RT 3V Age/Sex: 76 / F ADM Date: 02/02/22 [employer] Other XR knee RT 3V Loc: [facility] [employer] Other XR knee RT 3V Attending Dr: Sydney Erickson II, MD [employer] Other XR knee RT 3V Copies to: Sydney Erickson MD [employer] Other XR knee RT 3V Ordering Provider: Sydney Erickson MD [employer] Other XR knee RT 3V Date of Service: 02/02/22 [employer] Other XR knee RT 3V XR/XR knee RT 3V - NOT FOR ER USE: History of total right knee [employer] Other XR knee RT 3V replacement [employer] Other XR knee RT 3V RIGHT KNEE - 3 views N [employer] Other XR knee RT 3V CLINICAL HISTORY: Follow-up right total knee arthroplasty [employer] Other XR knee RT 3V COMPARISON: Right knee 12/20/2021 [employer] Other XR knee RT 3V FINDINGS: [employer] Other XR knee RT 3V Right knee prosthesis without radiographic complication. No acute bony process. [employer] Other XR knee RT 3V XR/XR knee RT 3V - NOT FOR ER USE [employer] Other XR knee RT 3V IMPRESSION: [employer] Other XR knee RT 3V NO EVIDENCE OF HARDWARE COMPLICATION. [employer] Other XR knee RT 3V Impression dictated by: Migue Groves Jr., D.OSun02/02/2022 4:27 PM [employer] Other XR knee RT 3V Dictation Location: [facility]08 [employer] Other XR knee RT 3V Transcribed By: PWS 02/02/22 1627 [employer] Other XR knee RT 3V Dictated By: Migue Groves Jr, DO 02/02/22 1626 [employer] Other XR knee RT 3V Signed By: [employer] Other XR knee RT 3V 02/02/22 1769 [employer] Other COVID-19 Positive/NegativeOr dered By: Sydney Erickson on 12-17-2021 SARS-CoV-2 (COVID-19) N gene BRAULIO+probe Ql (Resp) Negative Negative [facility] Comment on above: Testing for SARS-CoV -2 by RT-PCR This test was developed and its performance characteristics determined by [employer] ([employer] and validated at the [facility]. This test has not been FDA [...] Auto (Urine sed) [#/Area] 1-2 [HPF] 0-4 [facility] Automated leukocytes count i n urine sediment (number/area)Ordered By: Sydney Erickson on 12-07-2021 WBC Auto (Urine sed) [#/Area] None seen [HPF] 0-4 [facility] Basophils Auto (Bld) [#/Vol] Ordered By: Sydney Erickson on 12-07-2021 Basophils (Bld) [#/Vol] 0.0 10*3/uL 0.0-0.2 [facility] Basophils/100 WBC Auto (Bld) Ordered By: Sydney Erickson on 12-07-2021 Basophils/100 WBC (Bld) 0.9 % . [facility] Bilirubin Test strip Ql (U)O rdered By: Sydney Erickson on 12-07-2021 Bilirubin Ql (U) Negative Negative [facility] Blood hemoglobin measurement (mass/volume)Ordered By: Sydney Erickson on 12-07-2021 Hemoglobin (Bld) [Mass/Vol] 13.1 g/dL 11.8-15.4 [facility] Blood leukocytes automated c ount (number/volume)Ordered By: Sydney Erickson on 12-07-2021 WBC (Bld) [#/Vol] 3.8 10*3/uL 4.5-11.0 [facility] CT biopsyOrdered By: Sydney Erickson on 12-07-2021 CT biopsy 241 umol/L 0-285 [facility] Comment on above: Published reference interval for apparently healthy subjects between age 20 and 60 is 205 - 285 umol/L and in a poorly controlled diabetic population is 228 - 563 umol/L with a mean of 396 umol/L. Performed at: [facility] [id number] Lumber Planer: Fortunato Garcia PhD, Phone: [phone] Color Auto (U)Ordered By: Xuan Erickson on 12-07-2021 Color (U) Yellow Yellow [facility] Creatinine and Glomerular fi ltration rate.predicted panel (S/P/Bld)Ordered By: Sydney Erickson on 12-07-2021 Creatinine [Mass/Vol] 0.86 mg/dL 0.44-1.03 [facility] Eosinophils Auto (Bld) [#/Vo l]Ordered By: Sydney Erickson on 12-07-2021 Eosinophils (Bld) [#/Vol] 0.1 10*3/uL 0.0-0.45 [facility] Eosinophils/100 WBC Auto (Bl d)Ordered By: Sydney Erickson on 12-07-2021 Eosinophils/100 WBC (Bld) 2.4 % . [facility] Erythrocyte distribution wid th Auto (RBC) [Ratio]Ordered By: Sydney Erickson on 12-07-2021 Erythrocyte distribution width (RBC) [Ratio] 12.5 % 11.9-15.3 [facility] Estimated glomerular filtrat ion rate (GFR) non- AmericanOrdered By: Sydney Erickson on 12-07-2021 GFR/1.73 sq M.predicted among non-blacks MDRD (S/P/Bld) [Vol rate/Area] > 60 mL/Min [facility] Hematocrit Auto (Bld) [Volum e fraction]Ordered By: Sydney Erickson on 12-07-2021 Hematocrit (Bld) [Volume fraction] 39.0 % 34.0-46.4 [facility] Ketones Auto test strip (U) [Mass/Vol]Ordered By: Sydney Erickson on 12-07-2021 Ketones (U) [Mass/Vol] Negative Negative Fi [facility] - Hematology and Cell countsOrdered By: Sydney Erickson on 12-07-2021 Nucleated RBC/100 WBC (Bld) [Ratio] 0.0 % 0-0.5 [facility] Laboratory - UrinalysisOrder ed By: Sydney Erickson on 12-07-2021 Hyaline casts LM Ql (Urine sed) None seen [LPF] 0-8 [facility] Lymphocytes Auto (Bld) [#/Vo l]Ordered By: Sydney Erickson on 12-07-2021 Lymphocytes (Bld) [#/Vol] 1.0 10*3/uL 1.00-4.8 [facility] Lymphocytes/100 WBC Auto (Bl d)Ordered By: Sydney Erickson on 12-07-2021 Lymphocytes/100 WBC (Bld) 26.7 % . [facility] MCH Auto (RBC) [Entitic mass ]Ordered By: Sydney Erickson on 12-07-2021 MCH (RBC) [Entitic mass] 29.7 pg 24.7-34.3 [facility] MCHC Auto (RBC) [Mass/Vol]Or dered By: Sydney Erickson on 12-07-2021 MCHC (RBC) [Mass/Vol] 33.5 g/dL 32.0-35.0 [facility] MCV Auto (RBC) [Entitic vol] Ordered By: Sydney Erickson on 12-07-2021 MCV (RBC) [Entitic vol] 88.7 fL 80-100 [facility] Monocytes Auto (Bld) [#/Vol] Ordered By: Sydney Erickson on 12-07-2021 Monocytes (Bld) [#/Vol] 0.4 10*3/uL 0.0-0.8 [facility] Monocytes/100 WBC Auto (Bld) Ordered By: Sydney Erickson on 12-07-2021 Monocytes/100 WBC (Bld) 11.1 % . [facility] Neutrophils Auto (Bld) [#/Vo l]Ordered By: Sydney Erickson on 12-07-2021 Neutrophils (Bld) [#/Vol] 2.2 10*3/uL 1.8-7.7 [facility] Neutrophils/100 WBC Auto (Bl d)Ordered By: Sydney Erickson on 12-07-2021 Neutrophils/100 WBC (Bld) 58.9 % . [facility] Nitrite Test strip Ql (U)Ord ered By: Sydney Erickson on 12-07-2021 Nitrite Ql (U) Negative Negative [facility] No Panel InformationOrdered By: Sydney Erickson on 12-07-2021 Estimated GFR () > 60 mL/Min [facility] Comment on above: GFR estimated refere nce range: According to KDOQI guidelines, <60 ml/min/1.73m2 is sufficient to diagnose a patient with chronic kidney disease. Pharmacy Creatinine Clearance (Chem N/A [facility] Platelet mean volume Auto (B ld) [Entitic vol]Ordered By: Sydney Erickson on 12-07-2021 Platelet mean volume (Bld) [Entitic vol] 8.2 fL 6.3-10.7 [facility] Platelets Auto (Bld) [#/Vol] Ordered By: Sydney Erickson on 12-07-2021 Platelets (Bld) [#/Vol] 274 10*3/uL 150-450 [facility] Protein Auto test strip (U) [Mass/Vol]Ordered By: Sydney Erickson on 12-07-2021 Protein (U) [Mass/Vol] Negative Negative [facility] RBC Auto (Bld) [#/Vol]Ordere d By: Sydney Erickson on 12-07-2021 RBC (Bld) [#/Vol] 4.40 10*6/uL 3.60-5.00 [facility] Serum or plasma calcium catalino urement (mass/volume)Ordered By: Sydney Erickson on 12-07-2021 Calcium [Mass/Vol] 9.3 mg/dL 8.2-10.2 [facility] Serum or plasma chloride juan surement (moles/volume)Ordered By: Sydney Erickson on 12-07-2021 Chloride [Moles/Vol] 99 mmol/L 95-114 [facility] Serum or plasma glucose catalino urement (mass/volume)Ordered By: Sydney Erickson on 12-07-2021 Glucose [Mass/Vol] 94 mg/dL 70-100 [facility] Comment on above: ADA recommended refe rence range Random Glucose Reference Range is dependent on time and content of last meal. Glucose of more than 200 mg/dL in a nonstressed, ambulatory subject supports the diagnosis of Diabetes Mellitus. Serum or plasma potassium me asurement (moles/volume)Ordered By: Sydney Erickson on 12-07-2021 Potassium [Moles/Vol] 4.4 mmol/L 3.5-5.1 [facility] Serum or plasma sodium measu rement (moles/volume)Ordered By: Sydney Erickson on 12-07-2021 Sodium [Moles/Vol] 139 mmol/L 136-146 [facility] Serum or plasma total carbon dioxide measurement (moles/volume)Ordered By: Sydney Erickson on 12-07-2021 CO2 [Moles/Vol] 26.7 mmol/L 22.0-30.0 [facility] Serum or plasma urea nitroge n measurement (mass/volume)Ordered By: Sydney Erickson on 12-07-2021 Urea nitrogen [Mass/Vol] 14 mg/dL 9-23 [facility] Specific gravity Auto test s trip (U) [Rel density]Ordered By: Sydney Erickson on 12-07-2021 Specific gravity (U) [Rel density] 1.010 1.001-1.030 [facility] Squamous epithelial cells de tection in urine sediment by light microscopyOrdered By: Sydney Erickson on 12-07-2021 Epithelial cells.squamous LM Ql (Urine sed) None seen [HPF] 0-2 [facility] Urine bacteria detection by automated methodOrdered By: Sydney Erickson on 12-07-2021 Bacteria Auto Ql (U) None seen None Seen [facility] Urine clarity by refractomet ry automatedOrdered By: Sydney Erickson on 12-07-2021 Clarity Refractometry automated (U) Clear Clear [facility] Urine glucose measurement by automated test strip (mass/volume)Ordered By: Sydney Erickson on 12-07-2021 Glucose Auto test strip (U) [Mass/Vol] Normal mg/dL Normal [facility] Urine hemoglobin detection b y automated test stripOrdered By: Sydney Erickson on 12-07-2021 Hemoglobin Auto test strip Ql (U) Negative Negative [facility] Urine leukocyte esterase det ection by automated test stripOrdered By: Sydney Erickson on 12-07-2021 Leukocyte esterase Auto test strip Ql (U) 1+ Negative [facility] Urobilinogen Auto test strip (U) [Mass/Vol]Ordered By: Sydney Erickson on 12-07-2021 Urobilinogen (U) [Mass/Vol] Normal mg/dL Normal [facility] pH Auto test strip (U)Ordere d By: Sydney Erickson on 12-07-2021 pH (U) 7.5 [pH] 5.0-9.0 [facility] CBC AUTO DIFFon 09-01-2021 BASO # 0.0 103/ul Normal 0.0-0.1 [facility] Comment on above: Performed By: #### I NIKI DE LA TORRE #### [facility] [address] [place] [address] Dr. Ryann Pearce Basophils/100 WBC (Bld) 0.8 % Normal 0.2-2.0 [facility] Comment on above: Performed By: #### I WIL VITAD #### [facility] [address] [place] [address] Dr. Ryann Pearce EO # 0.2 103/ul Normal 0.0-0.7 [facility] Comment on above: Performed By: #### Mike DE LA TORRE VITAD #### [facility] [address] [place] [address] Dr. Ryann Pearce Eosinophils/100 WBC (Bld) 4.1 % Normal 0.9-7.0 [facility] Comment on above: Performed By: #### Mike DE LA TORRE VITAD #### [facility] [address] [place] [address] Dr. Ryann Pearce Erythrocyte distribution width (RBC) [Ratio] 12.5 % Normal 11.0-15.0 [facility] Comment on above: Performed By: #### Mike DE LA TORRE VITAD #### [facility] [address] [place] [address] Dr. Ryann Pearce Hematocrit (Bld) [Volume fraction] 37.6 % Normal 36.0-48.0 [facility] Comment on above: Performed By: #### Mike DE LA TORRE VITAD #### [facility] [address] [place] [address] Dr. Ryann Pearce Hemoglobin (Bld) [Mass/Vol] 12.3 g/dL Normal 12.0-16.0 [facility] Comment on above: Performed By: #### Mike DE LA TORRE VITAD #### [facility] [address] [place] [address] Dr. Ryann Pearce IG # 0.02 10e3/ul Normal 0.00-0.03 [facility] Comment on above: Performed By: #### Mike DE LA TORRE VITAD #### [facility] [address] [place] [address] Dr. Ryann Pearce IG % 0.5 % Normal 0.0-0.5 [facility] Comment on above: Performed By: #### I WIL, VITAD #### [facility] [address] [address] [address] Ryann Pearce LYMPH # 1.1 103/ul Critically low 1.2-3.8 [facility] Comment on above: Performed By: #### I WIL, VITAD #### [facility] [address] [address] [address] Ryann Pearce Lymphocytes/100 WBC (Bld) 29.0 % Normal 20.5-60.0 [facility] Comment on above: Performed By: #### I WIL, VITAD #### [facility] [address] [place] [address] Dr. Ryann Pearce MANUAL DIFF REQ NO Normal [facility] Comment on above: Performed By: #### I WIL, VITAD #### [facility] [address] [place] [address] Dr. Ryann Pearce MCH (RBC) [Entitic mass] 30.5 pg Normal 26.7-34.0 [facility] Comment on above: Performed By: #### I WIL, VITAD #### [facility] [address] [place] [address] Dr. Ryann Pearce MCHC (RBC) [Mass/Vol] 32.7 g/dL Normal 29.9-35.2 [facility] Comment on above: Performed By: #### I WIL, VITAD #### [facility] [address] [place] [address] Dr. Ryann Pearce MCV (RBC) [Entitic vol] 93.3 fL Normal 81.0-99.0 [facility] Comment on above: Performed By: #### I WIL, VITAD #### [facility] [address] [place] [address] Dr. Ryann Pearce MONO # 0.5 103/ul Normal 0.3-0.8 [facility] Comment on above: Performed By: #### I WIL, VITAD #### [facility] [address] [place] [address] Dr. Ryann Pearce Monocytes/100 WBC (Bld) 13.1 % Critically high 1.7-12.0 [facility] Comment on above: Performed By: #### I WIL, VITAD #### [facility] [address] [address] [address] Ryann Pearce NEUT # 2.0 103/ul Normal 1.4-6.5 [facility] Comment on above: Performed By: #### I WIL, VITAD #### [facility] [address] [place] [address] Dr. Ryann Pearce Neutrophils/100 WBC (Bld) 52.5 % Normal 43.0-75.0 [facility] Comment on above: Performed By: #### I WIL VITAD #### [facility] [address] [address] [address] Ryann Pearce Platelet mean volume (Bld) [Entitic vol] 9.0 fL Critically low 9.5-13.5 [facility] Comment on above: Performed By: #### Mike DE LA TORRE VITAD #### [facility] [address] [place] [address] Dr. Ryann Pearce PLT 229 103/ul Normal 150-450 [facility] Comment on above: Performed By: #### I WIL VITAD #### [facility] [address] [place] [address] Dr. Ryann Pearce RBC 4.03 106/ul Critically low 4.20-5.40 [facility] Comment on above: Performed By: #### I WIL, VITAD #### [facility] [address] [place] [address] Dr. Ryann Pearec WBC 3.9 103/ul Critically low 4.0-11.0 [facility] Comment on above: Performed By: #### I WIL VITAD #### [facility] [address] [place] [address] Dr. Ryann Pearce PROF 14(COMP METB)on 022 Albumin [Mass/Vol] 3.1 g/dL Critically low 3.5-5.0 [facility] Comment on above: Performed By: #### C MP #### [facility] [address] [place] [address] Dr. Ryann Pearce Albumin/Globulin [Mass ratio] 0.9 {ratio} Normal [facility] Comment on above: Performed By: #### C MP #### [facility] [address] [address] [address] Ryann Pearce ALP [Catalytic activity/Vol] 66 U/L Normal 38-126 [facility] Comment on above: Performed By: #### C MP #### [facility] [address] [address] [address] Ryann Pearce ALT [Catalytic activity/Vol] 28 U/L Normal 9-52 [facility] Comment on above: Performed By: #### C MP #### [facility] [address] [address] [address] Ryann Pearce Anion gap [Moles/Vol] 9.8 mmol/L Normal [facility] Comment on above: Performed By: #### C MP #### [facility] [address] [place] [address] Dr. Ryann Pearce AST [Catalytic activity/Vol] 22 U/L Normal 14-36 [facility] Comment on above: Performed By: #### C MP #### [facility] [address] [address] [address] Ryann Pearce Bilirubin [Mass/Vol] 0.5 mg/dL Normal 0.2-1.3 [facility] Comment on above: Performed By: #### C MP #### [facility] [address] [address] [address] Ryann Pearce Calcium [Mass/Vol] 8.5 mg/dL Normal 8.4-10.[address] [facility] Comment on above: Performed By: #### C MP #### [facility] [address] [address] [address] Ryann Pearce Chloride [Moles/Vol] 102 mmol/L Normal 98-107 [facility] Comment on above: Performed By: #### C MP #### [facility] [address] [address] [address] Ryann Pearce CO2 [Moles/Vol] 31.7 mmol/L Critically high 22.0-30.0 [facility] Comment on above: Performed By: #### C MP #### [facility] [address] [address] [address] Ryann Pearce Creatinine [Mass/Vol] 0.91 mg/dL Normal 0.52-1.04 [facility] Comment on above: Performed By: #### C MP #### [facility] [address] [address] [address] Ryann Pearce EGFR-AF PARAGUAYAN >60 Normal >=60 [facility] Comment on above: Performed By: #### C MP #### [facility] [address] [address] [address] Ryann Pearce EGFR-NON AF PARAGUAYAN =60 Normal >=60 [facility] Comment on above: Performed By: #### C MP #### [facility] [address] [address] [address] Ryann Pearce Globulin (S) [Mass/Vol] 3.3 g/dL Normal [facility] Comment on above: Performed By: #### C MP #### [facility] [address] [address] [address] Ryann Pearce Glucose [Mass/Vol] 89 mg/dL Normal 74-[address] [facility] Comment on above: Performed By: #### C MP #### [facility] [address] [place] [address] Dr. Ryann Pearce Potassium [Moles/Vol] 4.5 mmol/L Normal 3.4-5.0 [facility] Comment on above: Performed By: #### C MP #### [facility] [address] [address] [address] Ryann Pearce Protein [Mass/Vol] 6.4 g/dL Normal 6.1-8.[address] [facility] Comment on above: Performed By: #### C MP #### [facility] [address] [place] [address] Dr. Ryann Pearce Sodium [Moles/Vol] 139 mmol/L Normal 137-[address] [facility] Comment on above: Performed By: #### C MP #### [facility] [address] [address] [address] Ryann Pearce Urea nitrogen [Mass/Vol] 14.0 mg/dL Normal 7.0-17.0 [facility] Comment on above: Performed By: #### C MP #### [facility] [address] [address] [address] Ryann Pearce Urea nitrogen/Creatinine [Mass ratio] 15.4 mg/mg Normal [facility] Comment on above: Performed By: #### C MP #### [facility] [address] [address] [address] Ryann Pearce Vital Signs Date Time Vital Sign Value Performing Clinician Facility 02-28-2024 14:290400 Body height 167.6 cm Pacc 2 Work Phone: [facility] 02-28-2024 14:29-0400 Body mass index (BMI) [Ratio] 23.77 kg/m2 Pacc 2 Work Phone: [facility] 02-28-2024 14:29-0400 Body temperature 97.7 [degF] Pacc 2 Work Phone: [facility] 02-28-2024 14:290400 Body weight 66.8 kg Pacc 2 Work Phone: [facility] 02-28-2024 14:29-0400 Diastolic blood pressure 82 mm[Hg] Pacc 2 Work Phone: [facility] 02-28-2024 14:29-0400 Heart rate 120 /min Pacc 2 Work Phone: [facility] 02-28-2024 14:29-0400 Respiratory rate 18 /min Pacc 2 Work Phone: [facility] 02-28-2024 14:29-0400 SaO2% (BldA) [Mass fraction] 97 % Pacc 2 Work Phone: [facility] 02-28-2024 14:29-0400 Systolic blood pressure 140 mm[Hg] Pacc 2 Work Phone: [facility] 02-23-2024 14:03-0400 Body height 167.6 cm Funmilayo Odell MD Work Phone: [facility] 02-23-2024 14:03-0400 Body mass index (BMI) [Ratio] 23.08 kg/m2 Funmilayo Odell MD Work Phone: [facility] 02-23-2024 14:03-0400 Body temperature 97.5 [degF] Funmilayo Odell MD Work Phone: [facility] 02-23-2024 14:03-0400 Body weight 64.86 kg Funmilayo Odell MD Work Phone: [facility] Comment on above: per pt. 02-23-2024 14:03-0400 Diastolic blood pressure 83 mm[Hg] Funmilayo Odell MD Work Phone: [facility] 02-23-2024 14:03-0400 Heart rate 103 /min Funmilayo Odell MD Work Phone: [facility] 02-23-2024 14:03-0400 SaO2% (BldA) [Mass fraction] 94 % Funmilayo Odell MD Work Phone: [facility] 02-23-2024 14:03-0400 Systolic blood pressure 134 mm[Hg] Funmilayo Odell MD Work Phone: [facility] 11-03-2023 14:18-0400 Body temperature 97.11 [degF] Funmilayo Odell MD Work Phone: [facility] 11-03-2023 14:18-0400 Diastolic blood pressure 87 mm[Hg] Funmilayo Odell MD Work Phone: [facility] 11-03-2023 14:18-0400 Heart rate 85 /min Funmilayo Odell MD Work Phone: [facility] 11-03-2023 14:18-0400 SaO2% (BldA) [Mass fraction] 98 % Funmilayo Odell MD Work Phone: [facility] 11-03-2023 14:18-0400 Systolic blood pressure 179 mm[Hg] Funmilayo Odell MD Work Phone: [facility] 12-07-2022 10:00-0400 Body height 165.1 cm Ivette Taylor Other [employer] Other 12-07-2022 10:00-0400 Body mass index (BMI) [Ratio] 24.96 kg/m2 Ivette Taylor Other [employer] Other 12-07-2022 10:00-0400 Body weight 68.04 kg Ivette Taylor Other [employer] Other 10-27-2022 13:59-0400 Diastolic blood pressure 74 mm[Hg] Funmilayo Odell MD Work Phone: [facility] 10-27-2022 13:59-0400 Heart rate 98 /min Funmilayo Odell MD Work Phone: [facility] 10-27-2022 13:59-0400 SaO2% (BldA) [Mass fraction] 96 % Funmilayo Odell MD Work Phone: [facility] 10-27-2022 13:59-0400 Systolic blood pressure 137 mm[Hg] Funmilayo Odell MD Work Phone: [facility] 09-21-2022 11:31-0400 Diastolic blood pressure 90 mm[Hg] MD Gisella Porter Work Phone: [facility] 09-21-2022 11:31-0400 Heart rate 94 /min MD Gisella Porter Work Phone: [facility] 09-21-2022 11:31-0400 Respiratory rate 18 /min MD Gisella Porter Work Phone: [facility] 09-21-2022 11:31-0400 SaO2% (BldA) [Mass fraction] 98 % MD Gisella Porter Work Phone: [facility] 09-21-2022 11:31-0400 Systolic blood pressure 146 mm[Hg] MD Gisella Porter Work Phone: [facility] 09-21-2022 10:09-0400 Body height 167.64 cm MD Gisella Porter Work Phone: [facility] 09-21-2022 10:09-0400 Body temperature 98.7 [degF] MD Gisella Porter Work Phone: [facility] 09-21-2022 10:09-0400 Body weight 64.41 kg MD Gisella Porter Work Phone: [facility] 01-05-2022 14:45-0400 Body height 165.1 cm [employer] Other [facility] 01-05-2022 14:45-0400 Body mass index (BMI) [Ratio] 22.96 kg/m2 [employer] Other [facility] 01-05-2022 14:45-0400 Body weight 62.6 kg [employer] Other [facility] 12-20-2021 12:31-0400 Diastolic blood pressure 94 mm[Hg] MD Gisella Porter Work Phone: [facility] 12-20-2021 12:31-0400 Heart rate 78 /min MD Gisella Porter Work Phone: [facility] 12-20-2021 12:31-0400 Respiratory rate 16 /min MD Gisella Porter Work Phone: [facility] 12-20-2021 12:31-0400 SaO2% (BldA) [Mass fraction] 99 % MD Gisella Porter Work Phone: [facility] 12-20-2021 12:31-0400 Systolic blood pressure 172 mm[Hg] MD Gisella Porter Work Phone: [facility] 12-20-2021 09:35-0400 Body temperature 97.8 [degF] MD Gisella Porter Work Phone: [facility] 12-20-2021 09:35-0400 Inhaled oxygen flow rate 6 L/min MD Gisella Porter Work Phone: [facility] 12-20-2021 08:23-0400 Body height 167.64 cm MD Gisella Porter Work Phone: [facility] 12-20-2021 08:23-0400 Body mass index (BMI) [Ratio] 23.8 kg/m2 MD Gisella Porter Work Phone: [facility] 12-20-2021 08:23-0400 Body weight 67 kg MD Gisella Porter Work Phone: [facility] 11-10-2021 10:45-0400 Body height 165.1 cm [employer] Other [facility] 11-10-2021 10:45-0400 Body mass index (BMI) [Ratio] 23.13 kg/m2 Sydney Nelson II Other [facility] Other 11-10-2021 10:45-0400 Body weight 63.05 kg Sydney Nelson II Other [facility] Other 04-20-2021 11:45-0400 Body height 165.1 cm Manoj Forbes Other [facility] Other 04-20-2021 11:45-0400 Body mass index (BMI) [Ratio] 23.13 kg/m2 Manoj Forbes Other [facility] 04-20-2021 11:45-0400 Body weight 63.05 kg Manoj Forbes Other [facility] Other 04-20-2021 11:45-0400 Diastolic blood pressure 106 mm[Hg] Manoj Forbes Other [facility] Other 04-20-2021 11:45-0400 Systolic blood pressure 155 mm[Hg] Manoj Forbes Other [facility] Other Encounters Encounter Date Encounter Type Care Provider Facility Start: 04-01-2024 End: 04-01-2024 Patient encounter procedure MD Gisella Porter Work Phone: [facility] [place] Work Phone: Start: 04-01-2024 End: 04-01-2024 ambulatory MD Gisella Porter Work Phone: [facility] Work Phone: Start: 03-19-2024 End: 03-19-2024 Evaluation and management of inpatient FUNMILAYO ODELL Facility:[facility] Start: 02-28-2024 End: 02-28-2024 Admission to establishment [...] Preprocedural examination done Pac 2 Work Phone: [facility] Work Phone: Start: 02-28-2024 End: 02-28-2024 ambulatory ZAIDA SORIANO Facility:[facility] Start: 02-28-2024 Encounter for other preprocedural examination FUNMILAYO ODELL [facility] Start: 02-23-2024 End: 02-23-2024 ambulatory MANOJ FORBES Facility:[facility] Start: 02-23-2024 End: 02-23-2024 Patient encounter procedure Funmilayo Odell MD Work Phone: Colorectal Surgery Comment on above: Hemorrhoids, unspeci fied hemorrhoid type (Primary Dx) Start: 11-03-2023 End: 11-03-2023 ambulatory MANOJ FORBES Facility:[facility] Start: 11-03-2023 End: 11-03-2023 Patient encounter procedure Funmilayo Odell MD Work Phone: Colorectal Surgery Comment on above: BRBPR (bright red bl ood per rectum) (Primary Dx); Hemorrhoids, unspecified hemorrhoid type; Pelvic floor dysfunction Start: 10-11-2023 Telephone encounter Funmilayo arizmendi MD Work Phone: Colorectal Surgery Comment on above: Received Outside [place] [facility]; Appointment Start: 04-10-2023 End: 04-10-2023 ambulatory Manoj Forbes Other [facility] Other Start: 04-10-2023 Telephone encounter Manoj MCNEIL [facility] Start: 01-04-2023 End: 01-04-2023 ambulatory Ivette Taylor Other [facility] Other Start: 01-04-2023 Office outpatient vi sit 15 minutes Ivette Taylor [facility] Start: 12-23-2022 End: 12-23-2022 ambulatory MD Gisella Porter Work Phone: [facility] Work Phone: Start: 12-23-2022 End: 12-23-2022 Patient encounter procedure MD Gisella Porter Work Phone: [facility] Start: 12-07-2022 Office outpatient ne w 30 minutes Ivette Taylor [facility] Start: 12-07-2022 End: 12-07-2022 ambulatory MD Gisella Porter Work Phone: [facility] Work Phone: Start: 12-07-2022 End: 12-07-2022 Patient encounter procedure MD Gisella Porter Work Phone: [facility] Start: 10-27-2022 End: 10-27-2022 Patient encounter procedure Funmilayo Odell MD Work Phone: Colorectal Surgery Comment on above: Hemorrhoids, unspeci fied hemorrhoid type (Primary Dx) Start: 09-22-2022 End: 09-22-2022 ambulatory Manoj Forbes Other [facility] Other Start: 09-22-2022 Telephone encounter Manoj [facility] Start: 09-21-2022 End: 09-21-2022 Admission to same day surgery center MD Gisella Porter Work Phone: [facility] Work Phone: Start: 09-21-2022 End: 09-21-2022 ambulatory MD Gisella Porter Work Phone: [facility] Work Phone: Start: 08-23-2022 End: 08-24-[address] DOCTOR MAHARAJ Facility:[facility] Start: 08-04-2022 End: 08-04-2022 ambulatory Manoj Forbes Other [facility] Other Start: 08-04-2022 Telephone encounter Manoj [facility] Start: 07-06-2022 End: 07-07-[address] GISELLA PORTER . Facility:[facility] Start: 06-06-2022 End: 06-07-[address] GISELLA PORTER . Facility:[facility] Start: 05-11-2022 End: 05-12-[address] GISELLA PORTER . Facility:[facility] Start: 04-04-2022 End: 04-04-2022 ambulatory Manoj Forbes Other [facility] Other Start: 04-04-2022 Telephone encounter Manoj [facility] Start: 03-16-2022 End: 03-16-2022 Patient encounter procedure MD Gisella Porter Work Phone: [facility] Start: 02-23-2022 End: 02-23-2022 Discharged Recurring MD Gisella Porter Work Phone: [facility]Physical Therapy [facility] Start: 02-21-2022 End: 02-22-[address] LITA HANSEN Facility: Start: 02-02-2022 (Post-Op) Post-Op Sydney Darek II [facility] Start: 02-02-2022 End: 02-02-2022 ambulatory Sydney Darek II Other [facility] Other Start: 02-02-2022 End: 02-02-2022 Patient encounter procedure MD Gisella Porter Work Phone: [facility] Start: 01-05-2022 (Post-Op) Post-Op Sydney Nelson II [facility] Start: 01-05-2022 End: 01-05-2022 ambulatory Sydney Nelson II Other [facility] Other Start: 12-20-2021 End: 12-20-2021 Admission to same day surgery center MD Gisella Porter Work Phone: [facility]Surgery [facility] [place] Start: 12-17-2021 End: 12-17-2021 Patient encounter procedure MD Gisella Porter Work Phone: [facility]-Pre-Surgical Testing Start: 12-10-2021 (Prolonged) Prolonge d Services Sydney Nelson II [facility] Start: 12-10-2021 End: 12-10-2021 ambulatory Sydney Nelson II Other [facility] Other Start: 12-10-2021 Telephone encounter Sydney Nelson II [facility] Start: 12-07-2021 End: 12-07-2021 Patient encounter procedure MD Gisella Porter Work Phone: [facility]Pre-Surgical Testing Start: 12-01-2021 End: 12-01-2021 ambulatory Sydney Andersenle II Other [facility] Other Start: 12-01-2021 Patient encounter procedure Sydney Erickson II [facility] Start: 11-18-2021 Encounter for preprocedural cardiovascular examination SYDNEY LEROYISLE [facility] Start: 11-12-2021 End: 11-13-2021 ambulatory SYDNEY LEROYISLE Facility:[facility] Start: 11-12-2021 End: 11-13-2021 Encounter for preprocedural cardiovascular examination SYDNEY ERICKSON Facility:[facility] Start: 11-10-2021 End: 11-10-2021 ambulatory Sydney Andersenle II Other [facility] Other Start: 11-10-2021 Office outpatient vi sit 40 minutes Sydney Nelson II [facility] Start: 09-01-2021 End: 09-02-[address] DOCTOR MAHARAJ Facility:[facility] Start: 08-13-2021 End: 08-13-2021 ambulatory Sydney Leroyisle II Other [facility] Other Start: 08-13-2021 Office outpatient ne w 45 minutes Sydney Nelson II [facility] Start: 04-20-2021 Patient encounter procedure Manoj Forbes [facility] Gastroenter[facility] Procedures Date Procedure Procedure Detail Performing [...] of operative procedure on knee Manoj Forbes Lars Plan of Treatment Date Care Activity Detail Author Start: 02-27-2027 Diabetes Screening Diabetes Screenin miguelito [facility] Start: 03-19-2024 End: 03-19-2024 Admission to same day surgery center 03/19/2024 7:30 AM EDT - 03/19/2024 8:40 AM EDT Surgery [facility] Surgery [address] [place] [address] [place] [address] [address] [place] [address] EXCISION RECTAL PROCIDENTIA W/ ANASTOMOSIS [facility] Surgery Comment on above: EXCISION RECTAL PROC [...] physician 03/19/2024 7:30 AM EDT Hospital Encounter [facility] Surgery [address] [place] [address] [place] [address] [place] [address] BRBPR (bright red blood per rectum) [K62.5] [facility] Surgery Comment on above: BRBPR (bright red bl ood per rectum) [K62.5] Start: 02-25-2024 Covid-19 Vaccine ( season) Covid-19 Vaccine () [facility] Start: 02-25-2024 Influenza vaccination [facility] Start: 06-26-2023 Advance Directive Discussion Advance Directive Discussion [facility] Start: 06-26-2023 Behavioral Health Screening Behavioral Health Screening [facility] Start: 02-24-2023 Covid-19 Vaccine () Covid-19 Vaccine () [facility] Start: 02-24-2023 Influenza vaccination INFLUENZ A (Season Ended) [facility] Start: 09-21-2022 [facility] Start: 06-26-2022 ADVANCE DIRECTIVE DISCUSSION ADVANCE DIRECTIVE DISCUSSION [facility] Start: 06-26-2022 DEPRESSION ASSESSMENT DEPRESSION ASS ESSMENT [facility] Start: 12-20-2021 [facility] Work Phone: Start: 12-20-2021 [facility] Work Phone: Start: 06-16-2021 COVID-19 VACCINE (4 - Booster for Moderna series) COVID-19 VACCINE (4 - Booster for Moderna series) [facility] Start: 2010 BONE DENSITY BONE DENSITY [facility] Start: 2010 PNEUMOCOCCAL: 65+ (1 - PCV) PNEUMOCOCCAL: 65+ (1 - PCV) [facility] Start: 2010 Screening for osteoporosis Bone Density Screening [facility] Start: 2005 RSV Vaccine (1 - 1-d ose 60+ series) RSV Vaccine (1 - 1-dose 60+ series) [facility] Start: 1995 SHINGRIX VACCINE (1 of 2) SHINGRIX VACCINE (1 of 2) [facility] Start: 1990 DIABETES SCREEN DIABETES SCREEN [facility] Start: 1990 Diabetes Screening Diabetes Screenin g [facility] Start: 1964 Urine microalbumin profile [facility] Start: 1963 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 Disease Visit Annual PCP Team Chronic Disease Visit [facility] Start: 1963 Anxiety Screening Anxiety Screening [facility] Start: 1963 Depression Screening Depression Scre ening [facility] Start: 1963 HEPATITIS C [facility] Start: 1963 Hepatitis C screening Hepatitis C Sc [facility] ECG COMPLETE ECG COMPLETE ECG Routine Preoperative examination Tachycardia 02/28/2024 1:49 PM EDT [facility] Work Phone: Patient Education Hemorrhoids (DC) [facility] Work Phone: [facility] Immunizations Immunization Date Immunization Notes Care Provider Fa cility 04-16-2021 COVID-19 mRNA-1273 (Moderna) MD Gisella Porter Work Phone: [facility] 09-01-2020 COVID-19 mRNA-1273 (Moderna) MD Gisella Porter Work Phone: [facility] 08-03-2020 COVID-19 mRNA-1273 (Moderna) MD Gisella Porter Work Phone: [facility] 04-02-2020 influenza virus vaccine, unspecified formulation Funmilayo Odell MD Work Phone: [facility] Payers Date Payer Category Payer Self-pay [id number] 2022 Private Health Insurance [facility] AARP SUPPLEMENT [id number] 2022-Present [phone] [address] [place] [address] Indemni [id number] 2010 Medicare MEDICARE MEDICAR E A AND B [id number] 2010-Present [phone] [place] [address] Medicare [id number] 1959 Medicare [id number] 1959 Unknown [id number] 1945 Unknown [id number] 1945 Unknown [id number] 1945 Unknown [id number] 1945 Unknown [id number] 1945 Unknown [id number] 1945 Unknown [id number] 1945 Unknown [id number] Unknown [id number] Social History Date Type Detail Facility Unknown if ever smoked [facility] Other Start: 10-27-2022 End: 02-28-2024 Sex Assigned At [facility] Start: 12-20-2021 End: 09-21-2022 Tobacco smoking status NHIS Never smoked tobacco (finding) [facility] Start: 1945 Sex Assigned At Female [facility] Start: 10-27-2022 Tobacco use and exposure Smokeless tobacco non-user [facility] Start: 10-27-2022 End: 02-28-2024 Alcohol intake Lifetime non-drinker (finding) [facility] Start: 1945 Sex Assigned At Not on file [facility] Start: 10-27-2022 End: 02-28-2024 History of Social function [facility] National Score (1-10 0), lower number is lower risk 53 [facility] Start: 02-27-2024 Gender identity Identifies as female gender (finding) [facility] Start: 02-27-2024 Sexual orientation Heterosexual (finding) [facility] Medical Equipment Procedure Code Equipment Code Equipment Origin al Text Equipment Identifier Dates Arthroplasty, knee, total, minimally invasive Orthopaedic cement, non-medicated [id number] FDA Start: 12-20-2021 Arthroplasty, knee, total, minimally invasive Uncoated knee femur prosthesis ()[id number] FDA Start: 12-20-2021 Arthroplasty, knee, total, minimally invasive Tibial insert ()[id number] FDA Start: 12-20-2021 Arthroplasty, knee, total, minimally invasive Uncoated knee tibia prosthesis, metallic ()[id number] FDA Start: 12-20-2021 Arthroplasty, knee, total, minimally invasive Polyethylene patella prosthesis ()[id number] FDA Start: 12-20-2021 Goals Date Patient Goal Desired Activity /State Clinical Notes 04-20-2021 to 03-19-2024 Zaida Soriano PA-C - 02/28/2024 2:26 PM EDTAZaida flores PA-C - 02/28/2024 2:26 PM EDTPatient Funmilayo Hobbs MD - 02/23/2024 2:40 PM Funmilayo Gallegos MD - 11/03/2023 2:40 PM EDT Note Date & Type Note Facility 03-19-2024 Note HNO ID: [id number] Author: JULIANA BENITES APRN.WRITING MANAGER Service: Anesthesiology Author Type: Nurse Green Feed Attendant Type: Anesthesia Procedure Notes Filed: 03/19/2024 08:01 Note Text: ANESTHESIOLOGY PROCEDURE NOTE Airway General Information Procedure Start Time/Medication Administration: 03/19/2024 7:43 AM Procedure End Time: 03/19/2024 7:04 AM Patient location during procedure: OR Staffing WRITING MANAGER: Juliana Benites APRN.WRITING MANAGER Performed by: WRITING MANAGER Indications and Patient Condition Indications for airway [...] 1 Airway not difficult SIGNATURE: Juliana Benites APRN.WRITING MANAGER PATIENT NAME: Billie Yeboah DATE: March 19, 2024 TIME: 8:01 AM CSN: [id number] [facility] 02-28-2024 History and physical note [...] has never had a prior EKG at [facility] before, but has at either [facility] or [facility]. Faxing for records for comparison. 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 On daily Etodolac and has Tramadol for [...] 35 kg/m^2 Non-male patient STOP-Bang Score: 1 [id number] Score: [id number] Score: 0 ANESTHESIA FINDINGS: Intubation History: No [...] mg tablet ECG COMPLETE Faxed release to [facility] 02/28/2024 for Last EKG, need for comparison. [...] fevers. Neuro: No history of TIA's, stroke, WASTE DUSTER tumor, impaired sensorium, hemiplegia, paraplegia or quadraplegia. [...] ALLERGIES Allergen Reactions Ciprofloxacin Rash, Unknown Nitrofurantoin [place]* Other: See Comments, GI Upset Sulfamethoxazole-Tr* Other: [...] DATE: 02/28/2024 TIME: 2:26 PM PAGER/CONTACT #: [facility] 02-28-2024 History and physical note [...] has never had a prior EKG at [facility] before, but has at either [facility] or [facility]. Faxing for records for comparison. 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 On daily Etodolac and has Tramadol for [...] 35 kg/m^2 Non-male patient STOP-Bang Score: 1 [id number] Score: [id number] Score: 0 ANESTHESIA FINDINGS: Intubation History: No [...] mg tablet ECG COMPLETE Faxed release to [facility] 02/28/2024 for Last EKG, need for comparison. [...] fevers. Neuro: No history of TIA's, stroke, WASTE DUSTER tumor, impaired sensorium, hemiplegia, paraplegia or quadraplegia. [...] ALLERGIES Allergen Reactions Ciprofloxacin Rash, Unknown Nitrofurantoin [place]* Other: See Comments, GI Upset Sulfamethoxazole-Tr* Other: [...] PM PAGER/CONTACT #: documented in this encounter [facility] 02-27-2024 Instructions Zaida Soriano PA-C - 02/27/2024 12:07 PM EDT Images from the original note were not included. [facility] PATIENT PREOPERATIVE INSTRUCTIONS Testing that needs completed prior to surgery: - Lab work ordered today, recommend completing today at Outpatient Lab Funmilayo Odell MD has scheduled you for your procedure at this surgery center: [facility]: [phone] --[address] [place] [address]. Please enter through the entrance closest to [...] Procedures: - YOU MUST HAVE A RESPONSIBLE CERTIFIED FRAUD EXAMINER TAKE YOU HOME. A PROJECT BUYER OR BINDING CUTTER SYNTHETIC CLOTH CANNOT BE MADE A RESPONSIBLE CERTIFIED FRAUD EXAMINER. 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 Forbes and my final recommendations will be communicated to the requesting health care provider by way of the shared medical record for internal providers or letter via the [employer] for external providers. 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 Author Type: Physician Type: Progress Notes Filed: 11/03/2023 14:59 Note Text: COLORECTAL SURGERY November 03, 2023 Billie Yeboah 78 year old This consult was requested by Dr. Forbes and my final recommendations will be communicated to the requesting health care provider by way of the shared medical record for internal providers or letter via the [employer] for external providers. 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 BRBPR, hemorrhoids Who is your referring physician? Dr. Forbes Are you having poor oral intake? NO Have you had unintentional weight loss of 15 lbs/7 Kg in the last 3-6 months? NO Bowels: regular, bleeding with and without BMs, discharge, brown/green in color Wound: Temperature: No Drains: No [facility] 11-03-2023 Nurse Note What is [...] No Drains: No documented in this encounter [facility] 10-11-2023 Miscellaneous Notes Appointment with Dr. Odell is scheduled. Referral Scanned in for Dr. Odell, called pt and LVM, awaiting call back to schedule. documented in this encounter [facility] 04-10-2023 Evaluation note Encounter Date Diagnosis Assessment Notes Mar, IBS (irritable bowel syndrome) (ICD-10 - K58.9) [facility] 07-12-2023 Evaluation note* Encounter Date Diagnosis Assessment Notes Treatment Notes Treatment Clinical Notes Dec, Primary osteoarthrit is of first carpometacarpal joint of left hand (ICD-10 - M18.12) Progress as tolerated Discussed DIP fusions Dec, Trigger ring finger of left hand (ICD-10 - M65.342) Dec, Left hand pain (ICD- 10 - M79.642) [facility] 06-14-2023 Evaluation note* Encounter Date Diagnosis [...] Left hand pain (ICD- 10 - M79.642) [facility] 05-04-2023 History of Present illness Narrative* Funmilayo Odell MD - 10/27/2022 2:00 PM EDT COLORECTAL SURGERY October 27, 2022 Billie Yeboah 77 year old This consult was requested by Dr. Manoj Forbes and my final recommendations will be communicated to the requesting health care provider by way of the shared medical record for internal providers or letter via the [employer] for external providers. Chief Complaint: [...] exam reveals no gross blood or masses [employer] Worker present: Yes, Maribell Joiner Anoscopy: The patient [...] Odell MD Colorectal Surgery [facility] Nurse Note* Maribell Joiner RN [...] Temperature: No Drains: No documented in this encounterTri[facility] Evaluation note* Encounter Date Diagnosis Assessment Notes Treatment Notes Treatment Clinical Notes Aug, Hemorrhoids (ICD-10 - K64.9) [facility]* Encounter Date Diagnosis Assessment Notes Treatment Notes Treatment Clinical Notes Jul, IBS (irritable bowel syndrome) (ICD-10 - K58.9) [facility] Other 01-12-2023 NotePROCEDURE: XR HAND RT MIN [...] Electronically authenticated by: VIDYA CHAUDHARY Date: 2022-07-07 12:06[facility]10-10-2022 Evaluation note* Encounter Date Diagnosis Assessment Notes Treatment Notes Treatment Clinical Notes Mar, IBS (irritable bowel syndrome) (ICD-10 - K58.9) [facility] Other 08-10-2022 Evaluation note* Encounter Date Diagnosis Assessment Notes Treatment Notes Treatment Clinical Notes Jan, Primary osteoarthritis of right knee (ICD-10 - M17.11) Jan, History of total right knee replacement (ICD-10 - Z96.651) Jan, Age-related osteoporosis without current pathological fracture (ICD-10 - M81.0) Jan, Other half-way (current) drug therapy (ICD-10 - Z79.899) Jan, Trochanteric bursitis of right hip (ICD-10 - M70.61) Jan, Other [facility] R TKA at [facility] on 12/20/2021 Overall I think she is doing very well. The stitch that popped up in the proximal aspect the incision was removed. Patient tolerated this well. Patient may continue activities as tolerated. Recommended continuing physical therapy not only for her knee but also for greater trochanteric bursitis. Continue taking uaet-voo-ypfdcfu anti-inflammatories as needed for assistance with swelling and pain associated with the operative extremity. I have also prescribed her some iron and vitamin C in the event that she did have some low postoperative hemoglobin. Follow-up in 6 weeks for repeat examination and long standing x-rays. [facility] Other 07-13-2022 Evaluation note* Encounter Date Diagnosis Assessment Notes Treatment Notes Treatment Clinical Notes Dec, Primary osteoarthritis of right knee (ICD-10 - M17.11) Dec, History of total right knee replacement (ICD-10 - Z96.651) Dec, Age-related osteoporosis without current pathological fracture (ICD-10 - M81.0) Dec, Other half-way (current) drug therapy (ICD-10 - Z79.899) Dec, Other [facility] R TKA at [facility] on 12/20/2021 Doing well. Zipline was removed. [...] as previously instructed. This includes wearing their JEANETTE hose on the operative extremity for another two weeks. Follow-up in 4 weeks for repeat examination and 3 view x-rays of the right knee. [facility] Other 06-17-2022 Evaluation note* Encounter Date Diagnosis [...] could proceed with surgery safely. The service station manager was vital for surgery timing and [...] plans. Prolonged services time spent: 32 minutes [facility] Other 06-17-2022 Evaluation note* Encounter Date Diagnosis Assessment Notes Treatment Notes Treatment Clinical Notes Nov, Primary osteoarthritis of right knee (ICD-10 - M17.11) [facility] Other 06-08-2022 Evaluation note* Encounter Date Diagnosis Assessment Notes Treatment Notes Treatment Clinical Notes Nov, Age-related osteoporosis without current pathological fracture (ICD-10 - M81.0) Nov, Primary osteoarthritis of right knee (ICD-10 - M17.11) Nov, Other half-way (current) drug therapy (ICD-10 - Z79.899) Nov, [...] replaced previously. 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 Maldonado. All questions were answered after [...] elected to proceed with the above surgery. [facility] Other 05-18-2022 Evaluation note* Encounter Date Diagnosis Assessment Notes Treatment Notes Treatment Clinical Notes October, Age-related osteoporosis without current pathological fracture (ICD-10 - M81.0) October, Primary osteoarthritis of right knee (ICD-10 - M17.11) October, Other half-way (current) drug therapy (ICD-10 - Z79.899) October, [...] or absent clearances could delay their surgery. [facility] Other 02-18-2022 Evaluation note* Encounter Date Diagnosis [...] injection well. 6. Follow up 3 months [facility] Other 10-26-2021 Evaluation note* Encounter Date Diagnosis Assessment Notes Treatment Notes Treatment Clinical Notes Mar, IBS (irritable bowel syndrome) (ICD-10 - K58.9) Colonoscopy Follow up in 1 year Mar, Special screening for malignant neoplasms, colon (ICD-10 - Z12.11) [facility] Other Evaluation noteNo assessment information available [facility] Work Phone: Evaluation note* Diagnosis Hemorrhoids, unspecified hemorrhoid type- Primary documented in this encounter [facility]* Diagnosis BRBPR (bright red blood per rectum)- Primary Hemorrhage of rectum and anus Hemorrhoids, unspecified hemorrhoid type Pelvic floor dysfunction Pelvic muscle wasting documented in this encounter [facility]* Diagnosis Hemorrhoids, unspecified hemorrhoid type- Primary documented in this encounter [facility]* Diagnosis Preoperative examination- Primary Preoperative examination, [...] anus Rectal prolapse documented in this encounter [facility] HospitalHistory and physical note Author Manoj Forbes [facility] September 21, 2022 10:51am Note Date/Time September 21, 2022 10: 51am [facility] [address] [place] [address] Gastroenterology H&P Signed Patient: Billie Yeboah MR#: [id number] : 1945 Acct:[id number] Age/Sex: 77 / F Adm Date: 3 Loc: Room: Type: [facility] Attending Dr: Manoj Forbes MD Copies [...] Manoj Forbes MD> 09/21/22 1051 [facility] Work Phone: History general Narrative - Reported* Type Description Date Surgical History THYROID Surgical History LEFT KNEE REPLAEMENT Surgical History HYSTERECTOMY Surgical History BILATERAL FOOT SURGERY Surgical History HIP REPLACEMENT RIGHT Hospitalization History Stomach pains 1 night [facility] Other History general Narrative - Reported* Type Description Date Medical History Arthritis Medical History IBS Medical History thyroid disease Medical History high cholesterol Surgical History THYROID Surgical History LEFT KNEE REPLAEMENT Surgical History HYSTERECTOMY Surgical History BILATERAL FOOT SURGERY Surgical History HIP REPLACEMENT RIGHT Hospitalization History Stomach pains 1 night [facility] Other Hospital Discharge instructions Additional Instructions DISCHARGE [...] - Do NOT operate machinery such as [employer]s, snow blowers, sewing machines, etc. for 24 [...] problems. -Follow up with PCP. -Office number [phone].[facility] Work Phone: reason for referral (narrative)* Reason *FU 09/30 Consult for hemorrhoids. Referral faxed to Dr. Odell Diagnosis 1 Hemorrhoids (K64.9) Referral Organization [facility] Gastroenterolo gy Referring Provider First Name Manoj Referring Provider Last Name Leidy Referring Provider Specialty Gastroenter ology Ref[facility] Referred Provider FUNMILAYO ODELL [place] [address] [place] Referred Provider Specialty Colorectal S urgery Referral Priority Routine General Notes GegeLelandt 0 09/23/2022 10:05:39 AM > Referral faxed by office. [facility] Other Renncw for referral (narrative)* Outpatient Procedure (Routine) - New Request Specialty Diagnoses / Procedures Referred By Charis sutton [facility] Diagnoses Preoperative examination Tachycardia Procedures ECG COMPLETE ECG ROUTINE ECG W/LEAST 12 LDS W/I&R Zaida Soriano PA-C [address] [place] [address] [facility] [place] [address] [place] [address] Referral ID Status Reason Start Date Expiration Date Visits Requested Visits Authorized [id number] New Request Auto-Generat ed Referral 02/28/2024 02/27/2025 1 1 [facility] Chief Complaint and Reason for Visit Chief Complaint Knee Pain Knee Pain Knee Pain Z96.651 Right TKA/post-op Chief Complaint Knee Pain Knee Pain Z96.651 Right TKA/post-op Chief Complaint Bright Red Per Rectu m, Anemia Chief Complaint R22.31 Chief Complaint K58.1 Family History No Family History Records Found Relationship Condition Age at Onset Recorded Date/T chalo father Heart disease Unknown Not Specified Alzheimer's dementia Unknown family member Malignant neoplasm of colon Unknown grandparent Malignant neoplasm of colon Unknown Relationship Condition Age at Onset Recorded Date/T chalo father Heart disease Unknown mother Alzheimer's dementia Unknown family member Malignant neoplasm of colon Unknown grandparent Malignant neoplasm of colon Unknown mother Hypertension Unknown Advance Directives No Advanced Directives Records Found Advance Directive Response Recorded Date/ Time Advance Directives Yes October 02 10:10am Summary Purpose Reason for Referral Specialty Diagnoses / Procedures Referred By Contac t Referred To Contact [facility] Diagnoses Pelvic floor dysfunction Procedures CONSULT TO PHYSICAL THERAPY PHYSICAL THERAPY EVALUATION HIGH COMPLEX [address] [place] [address] [facility] [address] [place] [address] [facility] [address] [address] Referral ID Status Reason Start Date Expiration Date Visits Requested Visits Authorized [id number] Pending Review PCP Requested Referral Auto-Generate d [...] Active Manoj Forbes MD Attending Provider Active Hand Iii Cutter Relationship Specialty Start Date End Date Daryl Austin [address] [place] [address] PCP - General 10/11/00 Team Status: Inactive Member Role Status Dates Gisella Porter MD Primary Care Provider Active Ivette Taylor MD Attending Provider Active Hand Iii Cutter Relationship Specialty Start Date End Date Daryl Austin [address] [place] [address] PCP - General 10/11/00 Hand Iii Cutter Relationship Specialty Start Date End Date Daryl Austin [address] [place] [address] PCP - General 10/11/00 Hand Iii Cutter Relationship Specialty Start Date End Date HindsDaryl avelar [address] [place] [address] PCP - General 10/11/00 Hand Iii Cutter Relationship Specialty Start Date End Date Daryl Austin [address] [place] [address] PCP - General 10/11/00 02/28/24 Gisella Porter MD [address] [place] [address] PCP - General Family Medicine 02/29/24 Team Status: Inactive Member Role Status Dates Gisella Porter MD Primary Care Provider Active Start: April 01, 2024 End: April 01, 2024 Manoj Forbes MD Attending Provider Active S tart: April 01, 2024 End: April 01, 2024 INFORMATION SOURCE (unrecogn ized section and content) DATE CREATED AUTHOR 08/30/2022 [facility] DATE CREATED AUTHOR AUTHOR'S ORGANIZ ATION 02/25/2024 [facility] DATE CREATED AUTHOR AUTHOR'S ORGANIZ ATION 03/21/2024 [facility] DATE CREATED AUTHOR AUTHOR'S ORGANIZ ATION 04/11/2024 [facility] Source Comments (unrecognize d section and content) In the event this informatio n is protected by the Federal Confidentiality of Alcohol and Drug Abuse Patient Records regulations: The Federal rules restrict any use of the information to criminally investigate or prosecute any alcohol or drug abuse patient.[facility] Hospital[facility] the event this information is protected by the Federal Confidentiality of Alcohol and Drug Abuse Patient Records regulations: The Federal rules restrict any use of the information to criminally investigate or prosecute any alcohol or drug abuse patient.[facility] Hospital[facility] the event this information is protected by the Federal Confidentiality of Alcohol and Drug Abuse Patient Records regulations: The Federal rules restrict any use of the information to criminally investigate or prosecute any alcohol or drug abuse patient.[facility] HospitalIn the event this information is protected by the Federal Confidentiality of Alcohol and Drug Abuse Patient Records regulations: The Federal rules restrict any use of the information to criminally investigate or prosecute any alcohol or drug abuse patient.[facility] HospitalIn the event this information is protected by the Federal Confidentiality of Alcohol and Drug Abuse Patient Records regulations: The Federal rules restrict any use of the information to criminally investigate or prosecute any alcohol or drug abuse patient.[facility] Goals (unrecognized section and content) [...] BE BASED ON THE PRIMARY CLINICAL RECORDS. [facility] [employer]. provides no warranty or guarantee of the accuracy or completeness of information in this document.
--- NOTE | 2024-04-13 10:43 | ECG_ITS ---
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
--- NOTE | 2024-04-13 10:43 | ED_ITS ---
HPI HPI - General Adult General Chief complaint: Extremity Injury, Upper Stated complaint: UPPER EXTREMITY PAIN Time Seen by Provider: 04/13/24 09:28 Source: patient Mode of arrival: walk-in Limitations: no limitations History of Present Illness HPI narrative: The patient is coming to the with a left-sided neck pain in addition to right wrist pain that she started having she have a history of rheumatoid arthritis with multiple deformities in her finger due to that, the patient was taking etodolac for her pain but it was stopped because she started having some black stool sometimes, and she is going to have a workup for possible ulcer The patient denies any pain right now in her abdomen and she is coming only because of the right wrist pain and the left-sided neck pain There was no chest pain there was no nausea vomiting dizziness or any other complaints The patient mentioned that the pain is there in her neck whenever he turns to the left There were no history of fall or trauma Related Data Previous Rx's ?Medication ?Instructions ?Recorded orphenadrine citrate 100 mg 100 mg PO ONCE PRN muscle spasm 04/13/24 tablet,extended release #10 tabs Allergies Allergy/AdvReac Type Severity Reaction Status Date / Time ciprofloxacin Allergy Intermediate Hives Verified 04/13/24 09:26 nitrofurantoin (From Allergy Intermediate Hives Verified 04/13/24 09:26 Macrobid) sulfamethoxazole (From Allergy Intermediate Hives Verified 04/13/24 09:26 Bactrim) trimethoprim (From Bactrim) Allergy Intermediate Hives Verified 04/13/24 09:26 Opioid HPI Opioid Management Most Recent Opioid Data: Last Pain Scale 10 04/13/24 09:47 04/13/24 Last MAR Pain Assessment 04/13/24 09:47 Review of Systems ROS Status of ROS 10 or more systems reviewed and unremark able except as noted in history and below PFSH PFSH Social History Little interest or pleasure in doing things: not at all Feeling down, depressed, or hopeless: not at all Exam Narrative Exam Narrative: Nurses notes and vital signs reviewed and patient is not hypoxic. Upper extremity: Patient have bilateral joint deformities in the hands mostly secondary to inflammation and rheumatoid arthritis, there is tenderness upon palpation of the right wrist and there is mild effusion there is no redness and hotness General: Well-appearing and in no apparent distress. Skin: Warm, dry, no pallor noted. No rash. Head: Normocephalic, atraumatic. Neck: Supple, tenderness in the left paraspinal muscles on palpation there is no intervertebral line tenderness Eye: Pupils are equal, round and EOMI. No scleral icterus. Ears, Nose, Mouth, and Throat: TM are clear, no nasal mucosal hypertrophy. Oral mucosa is moist, no posterior oropharynx erythema, uvula is mid-line Cardiovascular: Regular Rate and Rhythm without murmur, gallop or rub. Respiratory: No accessory muscle use or respiratory distress. Lungs are clear to auscultation, no wheezing, rales or rhonchi Chest Wall: no tenderness Back: No midline thoracic or lumbar vertebral tenderness. No CVA tenderness Musculoskeletal: normal ROM, no calf or popliteal tenderness, no lower extremity edema/swelling GI: Abdomen is soft, non-distended. Normal bowel sounds. No masses appreciated. No tenderness to palpation. No rebound, guarding, or rigidity noted. Neurological: A&O x4. No cranial nerve dysfunction observed. No truncal ataxia. Moves all extremities. Sensation intact. Psychiatric: Cooperative and interactive. Normal mood and affect. Constitutional Vital Signs, click to edit/add: Last Vital Signs Temp 98.4 F 04/13/24 09:26 Pulse 89 04/13/24 11:18 Resp 16 04/13/24 11:18 BP 139/79 04/13/24 11:18 Pulse Ox 95 04/13/24 11:18 O2 Del Method Room Air 04/13/24 11:18 Course Vital Signs Vital signs: Vital Signs Temperature 98.4 F 04/13/24 09:26 Pulse Rate 106 H 04/13/24 09:26 Respiratory Rate 18 04/13/24 09:26 Blood Pressure 153/82 H 04/13/24 09:26 Pulse Oximetry 94 L 04/13/24 09:26 Oxygen Delivery Method Room Air 04/13/24 09:26 Temperature 98.4 F 04/13/24 09:26 Pulse Rate 89 04/13/24 11:18 Respiratory Rate 16 04/13/24 11:18 Blood Pressure 139/79 04/13/24 11:18 Pulse Oximetry 95 04/13/24 11:18 Oxygen Delivery Method Room Air 04/13/24 11:18 Medical Decision Making MDM Narrative Medical decision making narrative: The patient EKG showing sinus rhythm with a heart rate of [address] elevation or depression The patient pain was induced with palpation in the left neck and the patient x- ray of the right wrist showed no acute pathology The patient just stopped her NSAID because of history of possible ulcer right now I did give her 1 dose of prednisone and Tylenol after which she was feeling better The patient already had tramadol at home that she picked up her new prescription The patient also was provided with the Norflex she was instructed about the importance of monitoring symptoms and not taking tramadol with Norflex together to avoid any sedating effect The patient had the plan discussed with her especially with her having a history of possible ulcer I did not want to discharge her with prednisone more than what I given the ER and she understands The patient is to follow up with primary care physician in next 2-3 days or to return to the emergency department should any of the signs or symptoms worsen or new symptoms develop. The patient agrees with the following Diagnosis and Treatment plan and the patient will be discharged home. Discharge Plan Discharge Chief Complaint: Extremity Injury, Upper Clinical Impression: Acute wrist pain, Neck pain Patient Disposition: Home, Self-Care Time of Disposition Decision: 11:09 Condition: Good Mode of Transportation: Private Vehicle Prescriptions / Home Meds: New orphenadrine citrate 100 mg tablet extended release 100 mg PO ONCE PRN (Reason: muscle spasm) Qty: 10 0RF Print Language: Indonesian Instructions: Arthralgia (ED) Referrals: Eric Porter MD [Primary Care Provider] - 1 week Discharge Date/Time: 04/13/24 11:18
[2024-04-13 11:18] VITALS: BP 139/79; PULSE 89; O2SAT 95
== END 2024-04-13 11:18 | disposition home or self-care (01) ==
PROVIDERS: Emergency Provider Emergency Medicine; PCP Family Medicine
DX: M54.2 Cervicalgia (principal); M25.531 Pain in right wrist; M06.9 Rheumatoid arthritis, unspecified
CPT/HCPCS: 73100; 93005; 99284; J7512

== ENCOUNTER 2024-06-10 11:43 | Outpatient (OUT) | payer MEDICARE, SELFPAY ==
--- OUTSIDE RECORDS SUMMARY | 2024-06-10 12:08 | XMS_ITS | CCD ---
Author Organization [facility] Care Team Providers Care Lead Man Over All Dies In [employer] Name Role Phone Manoj Forbes Unavailable Sydney Erickson II Unavailable MD Gisella Porter Primary Care Provider [phone] MD Sydney Erickson II Attending Provider MD Gisella Porter Primary Care Provider [phone] MD Sydney Erickson II Attending Provider [phone] KENC, DR HOOVER Admitting Unavailable MISC, DR [...] Unavailable HOY ., DR OBANDO Consulting Unavailable SPRAGUE, DR FUNMILAYO Ramirez Consulting Unavailable TYRONE, DR [...] Unavailable MD Gisella Porter Primary Care Provider [phone] MD Manoj Forbes Attending Provider LouisaDaryl avelar Primary Care Provider UnavailMD Ivette Treadwell Attending Provider MD Gisella Porter Primary Care Provider [phone] MD Sydney Erickson II Attending Provider Ivette Taylor Unavailable Geovanna Daryl Primary Care Provider UnavailDaryl Viera Primary Care Provider UnavailMANOJ Childress Referring Unavailable FUNMILAYO ODELL Attending Unavailable MANOJ FORBES Referring Unavailable FUNMILAYO ODELL Attending Unavailable Daryl Austin Primary Care Provider UnavailGisella Tinajero MD Primary Care Provider [phone] FUNMILAYO ODELL Attending Unavailable FUNMILAYO ODELL Admitting Unavailable FUNMILAYO ODELL Referring Unavailable ZAIDA SORIANO Referring Unavailable MD Gisella Porter Primary Care Provider [phone] MD Manoj Forbes Attending Provider [phone] Manoj Forbes Attending Unavailable Manoj Forbes Admitting Unavailable Gisella Porter Primary Care Unavailable Allergies Allergy Classification Reported Allergen(s) Allergy Type Date of Onset Reaction(s) Facility (20 sources) Ciprofloxacin; Translations: [CIPROFLOXACIN] Drug Allergy 05-31-20 13 Rash, Unknown [facility] (20 sources) NITROFURANTOIN, MACROCRYSTALS / Nitrofurantoin, Monohydrate Drug Allergy 10-28-19 23 Other: See Comments, GI Upset [facility] (20 sources) Sulfamethoxazole / Trimethoprim Drug Allergy 05-31-20 13 Other: See Comments, Rash [facility] (3 sources) Ciprofloxacin; Translations: [Cipro] Drug Allergy 05-31-20 13 Unknown [facility] (3 sources) Sulfamethoxazole / Trimethoprim; Translations: [Bactrim] Drug Allergy 05-31-20 13 Unknown [facility] (7 sources) Nitrofurantoin; Translations: [nitrofurantoin] Drug Allergy 04-29-20 21 Rash, Rash, vomiting,rash [facility] (7 sources) Sulfamethoxazole; Translations: [sulfamethoxazole] Drug Allergy 04-29-20 21 Rash, Rash, vomiting, rash [facility] (7 sources) Trimethoprim; Translations: [trimethoprim] Drug Allergy 04-29-20 21 Rash, Rash, vomiting, rash [facility] (1 source) Nitrofurantoin Drug Allergy 05-31-20 13 [facility] Repository (2 sources) Sulfamethoxazole / Trimethoprim; Translations: [SULFAMETHOXAZOLE-T RIMETHOPRIM] Drug Allergy 05-31-20 13 [facility] (2 sources) NITROFURANTOIN MONOHYD/M-CRYST; Translations: [NITROFURANTOIN MONOHYD/M-CRYST] Propensity to adverse reactions to drug (disorder) 10-28-19 23 [facility] (1 source) Ciprofloxacin Drug Allergy 12-05-19 24 [facility] Medications Current Medications Medication [...] Active Start: 12-01-2021 take 1 tablet by kathei th every six hours as needed for [...] DOS: 12/21/2021 Nov, Not-Taking polyethylene glycol 3350 12491 mg powder for oral solution (8 sources) [...] surgery] Chronic Other aftercare (5 sources) Other fci (current) drug therapy; Translations: [OTH INSURANCE COUNSEL CURRENT DRUG THERAPY] Onset: 2 Resolved: 2 Episodic Other aftercare (1 source) 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 [facility] Comment on above: Performed By: #### C RP, CBC, ESR #### [facility] [address] Automated basophil countOrde red By: Manoj Forbes on 04-01-2024 Basophils (Bld) [#/Vol] 0.0 10*3/uL Normal 0.0-0.2 [facility] Comment on above: Performed By: #### C RP, CBC, ESR #### [address] Automated blood monocyte cou ntOrdered By: Manoj Forbes on 04-01-2024 Monocytes (Bld) [#/Vol] 0.5 10*3/uL Normal 0.0-0.8 [facility] Comment on above: Performed By: #### C RP, CBC, ESR #### [address] Automated eosinophil %Ordere d By: Manoj Forbes on 04-01-2024 Eosinophils/100 WBC (Bld) 5.1 % Normal . [facility] Comment on above: Performed By: #### C RP, CBC, ESR #### [address] Automated eosinophil countOr dered By: Manoj Forbes on 04-01-2024 Eosinophils (Bld) [#/Vol] 0.3 10*3/uL Normal 0.0-0.45 [facility] Comment on above: Performed By: #### C RP, CBC, ESR #### [address] Automated monocyte %Ordered By: Manoj Forbes on 04-01-2024 Monocytes/100 WBC (Bld) 9.4 % Normal . [facility] Comment on above: Performed By: #### C RP, CBC, ESR #### [address] Automated neutrophil %Ordere d By: Manoj Forbes on 04-01-2024 Neutrophils/100 WBC (Bld) 68.0 % Normal . [facility] Comment on above: Performed By: #### C RP, CBC, ESR #### [address] C reactive protein [Mass/vol ume] in Serum or PlasmaOrdered By: Manoj Forbes on 04-01-2024 CRP [Mass/Vol] < 0.5 mg/dL 0.0-0.5 [facility] C-Reactive Proteinon 024 CRP [Mass/Vol] mg/L Normal 0.0-0.5 [facility] Comment on above: Result Comment: PERF ORMED BY: [place] [address] PATHOLOGIST CAMPAIGN DEVELOPER SE CHEATHAM M.D. Performed By: #### C RP, CBC, ESR #### [address] Calprotectin, Fecalon 2023 Calprotectin, Fecal 238 High 0-120 [facility] Comment on above: Result Comment: Conc entration Interpretation Follow-Up < 5 - 50 ug/g Normal None >50 -120 ug/g Borderline Re-evaluate in 4-6 weeks >120 ug/g Abnormal Repeat as clinically indicated Performed at: - [facility] [address] [id number] Pasting Machine Operator: Nadeen Gant MD, Phone: [phone] PERFORMED BY: [place] [address] PATHOLOGIST CAMPAIGN DEVELOPER SE CHEATHAM M.D. Performed By: #### C ALPROTECT #### [facility] , #### IBD DIAG #### [address] Complete Blood Count Auto Di ffon 04-01-2024 Mean Corpuscular HGB Conc 34.3 g/dL Normal 32.0-35.0 [facility] Comment on above: Performed By: #### C RP, CBC, ESR #### [address] NRBC% 0.1 /100{WBC} Normal 0-0.[address] [facility] Comment on above: Performed By: #### C RP, CBC, ESR #### [address] Erythrocyte Sedimentation Ra char 04-01-2024 ESR (Bld) [Velocity] 20 mm/h Normal 0-29 [facility] Comment on above: Result Comment: PERF ORMED BY: [place] [address] PATHOLOGIST CAMPAIGN DEVELOPER SE CHEATHAM M.D. Performed By: #### C RP, CBC, ESR #### [address] Erythrocyte distribution wid th [Ratio] by Automated countOrdered By: Manoj Forbes on 04-01-2024 Erythrocyte distribution width (RBC) [Ratio] 13.1 % Normal 11.9-15.3 [facility] Comment on above: Performed By: #### C RP, CBC, ESR #### [address] Erythrocyte sedimentation ra te by Photometric methodOrdered By: Manoj Forbes on 04-01-2024 ESR Photometric method (Bld) [Velocity] 20 mm/hr 0-29 [facility] Erythrocytes [#/volume] in B lood by Automated countOrdered By: Manoj Forbes on 04-01-2024 RBC (Bld) [#/Vol] 4.10 10*6/uL Normal 3.60-5.00 [facility] Comment on above: Performed By: #### C RP, CBC, ESR #### [address] Hematocrit [Volume Fraction] of Blood by Automated countOrdered By: Manoj Forbes on 04-01-2024 Hematocrit (Bld) [Volume fraction] 36.4 % Normal 34.0-46.4 [facility] Comment on above: Performed By: #### C RP, CBC, ESR #### [address] Hemoglobin [Mass/volume] in BloodOrdered By: Manoj Forbes on 04-01-2024 Hemoglobin (Bld) [Mass/Vol] 12.5 g/dL Normal 11.8-15.4 [facility] Comment on above: Performed By: #### C RP, CBC, ESR #### [address] IBD SGI [employer] IBD Comment Normal [facility] Comment on above: Result Comment: See report. Scanned copy available in EMR. PERFORMED BY: [place] [address] PATHOLOGIST CAMPAIGN DEVELOPER SE CHEATHAM M.D. Performed By: #### C ALPROTECT #### [facility] , #### IBD DIAG #### [address] Leukocytes [#/volume] correc jeanette for nucleated erythrocytes in Blood by Automated counOrdered By: Manoj Forbes on 04-01-2024 WBC corrected for nucl RBC Auto (Bld) [#/Vol] 5.7 10*3/uL 3.8-11.6 [facility] Leukocytes [#/volume] in Blo od by Automated countOrdered By: Manoj Forbes on 04-01-2024 WBC (Bld) [#/Vol] 5.7 10*3/uL Normal 3.8-11.[address] [facility] Comment on above: Performed By: #### C RP, CBC, ESR #### [address] Lymphocytes [#/volume] in Bl ood by Automated countOrdered By: Manoj Forbes on 04-01-2024 Lymphocytes (Bld) [#/Vol] 1.0 10*3/uL Normal 1.00-4.8 [facility] Comment on above: Performed By: #### C RP, CBC, ESR #### [address] Lymphocytes/100 leukocytes i n Blood by Automated countOrdered By: Manoj Forbes on 04-01-2024 Lymphocytes/100 WBC (Bld) 16.9 % Normal . [facility] Comment on above: Performed By: #### C RP, CBC, ESR #### [address] MCH [Entitic mass] by Automa jeanette countOrdered By: Manoj Forbes on 04-01-2024 MCH (RBC) [Entitic mass] 30.4 pg Normal 24.7-34.3 [facility] Comment on above: Performed By: #### C RP, CBC, ESR #### [address] MCHC Auto (RBC) [Mass/Vol]Or dered By: Manoj Forbes on 04-01-2024 MCHC (RBC) [Mass/Vol] 34.3 g/dL 32.0-35.0 [facility] MCV [Entitic volume] by Auto mated countOrdered By: Manoj Forbes on 04-01-2024 MCV (RBC) [Entitic vol] 88.6 fL Normal 80-100 [facility] Comment on above: Performed By: #### C RP, CBC, ESR #### [address] Neutrophils [#/volume] in Bl ood by Automated countOrdered By: Manoj Forbes on 04-01-2024 Neutrophils (Bld) [#/Vol] 3.9 10*3/uL Normal 1.8-7.7 [facility] Comment on above: Performed By: #### C RP, CBC, ESR #### [address] Nucleated erythrocytes [Pres ence] in Blood by Automated countOrdered By: Manoj Forbes on 04-01-2024 Nucleated RBC Auto Ql (Bld) 0.1 /100{WBC} 0-0.5 [facility] Platelet mean volume [Entiti c volume] in Blood by Automated countOrdered By: Manoj Forbes on 04-01-2024 Platelet mean volume (Bld) [Entitic vol] 7.5 fL Normal 6.3-10.7 [facility] Comment on above: Performed By: #### C RP, CBC, ESR #### [address] Platelets [#/volume] in Bloo d by Automated countOrdered By: Manoj Forbes on 04-01-2024 Platelets (Bld) [#/Vol] 279 10*3/uL Normal 150-450 [facility] Comment on above: Performed By: #### C RP, CBC, ESR #### [address] ANES POSTPROC EVALon 024 ANES POSTPROC EVAL HNO ID: [id number] Author: MONO WHALEY MD Service: Anesthesiology Author [...] March 19, 2024 TIME: 11:33 AM CSN: [id number] [facility] ANES PRE-OPon 03-19-2024 ANES PRE-OP HNO ID: [id number] Author: MONO WHALEY MD Service: Anesthesiology Author [...] and consent discussed: yes. Patient / Responsible Constitution Party agrees to proceed: yes Patient / [...] March 19, 2024 TIME: 7:22 AM CSN: [id number] Normal [facility] Colonoscopyon 03-19-2024 Colonoscopy [facility] Gastrointestinal Endoscopy Patient Name: Billie Yeboah Procedure Date: 03/19/2024 7:20 AM Date of : 1945 Admit Type: Outpatient Age: 78 Room: [place] [address] Gender: Female Note Status: Finalized Attending MD: Funmilayo Odell MD, [id number] Procedure: Colonoscopy Indications: Rectal bleeding Providers: Funmilayo [...] the patient. Procedure Code(s): --- Professional --- 55205, Colonoscopy, flexible; with biopsy, single or multiple CPT copyright 2020 [employer]. All rights reserved. The codes documented in this report are preliminary and upon auto clutch rebuilder review may be revised to meet current [...] Loss: Estimated blood loss was minimal. Normal [facility] OPERATIVE NOon 03-19-2024 OPERATIVE NO HNO ID: [id number] Author: FUNMILAYO ODELL MD Service: Colorectal Author Type: Physician Type: Operative Report Filed: 03/19/2024 08:51 Note Text: COLON AND RECTAL SURGERY OPERATIVE REPORT PATIENT NAME: Billie Yeboah ADMISSION DATE: 03/19/2024 LOG ID: [id number] SURGERY/PROCEDURE DATE: 03/19/2024 INCISION/PROCEDURE START TIME: 7:54 AM INCISION CLOSE/PROCEDURE END TIME: 8:47 AM AGE: [age] year old SEX: female SURGEON(S)/PROCEDURA LIST(S) AND CLINICAL MANAGER(S): Surgeons and Role: * Funmilayo Odell MD [...] Division of Colon and Rectal Surgery Normal [facility] CBC panel Auto (Bld)on 02-27 Erythrocyte distribution width (RBC) [Ratio] 12.3 % 11.5 - 15.0 % [facility] Hematocrit (Bld) [Volume fraction] 42.4 % 36.0 - 46.0 % [facility] Hemoglobin (Bld) [Mass/Vol] 13.6 g/dL 11.5 - 15.5 g/dL [facility] Interpretation and review of laboratory results Normal [facility] MCH (RBC) [Entitic mass] 29.6 pg 26.0 - 34.0 pg [facility] MCHC (RBC) [Mass/Vol] 32.1 g/dL 30.5 - 36.0 g/dL [facility] MCV (RBC) [Entitic vol] 92.4 fL 80.0 - 100.0 fL [facility] Nucleated RBC (Bld) [#/Vol] NINF [facility] Platelet mean volume (Bld) [Entitic vol] 9.6 fL 9.0 - 12.7 fL [facility] Platelets (Bld) [#/Vol] 352 10*3/uL [facility] RBC (Bld) [#/Vol] 4.59 10*6/uL 3.90 - 5.2 0 m/uL [facility] WBC (Bld) [#/Vol] 6.15 10*3/uL [facility] Erythrocyte distribution width (RBC) [Ratio] 12.3 % Normal 11.5-15.0 [facility] Comment on above: Order Comment: Speci men Type: BLOOD SPECIMEN Ordering Facility: [facility] Address: [address] [place] [address] Performed By: #### 5 8410-2 #### [facility] CLIA [id number] [address] [facility] [place] [address] [place] Hematocrit (Bld) [Volume fraction] 42.4 % Normal 36.0-46.0 [facility] Comment on above: Order Comment: Speci men Type: BLOOD SPECIMEN Ordering Facility: [facility] Address: [address] [place] [address] Performed By: #### 5 8410-2 #### [facility] IA [id number] [address] [place] [address] [place] Hemoglobin (Bld) [Mass/Vol] 13.6 g/dL Normal 11.5-15.5 [facility] Comment on above: Order Comment: Speci men Type: BLOOD SPECIMEN Ordering Facility: [facility] Address: [address] [place] [address] Performed By: #### 5 8410-2 #### [facility] IA [id number] [place] [address] [place] MCH (RBC) [Entitic mass] 29.6 pg Normal 26.0-34.0 [facility] Comment on above: Order Comment: Speci men Type: BLOOD SPECIMEN Ordering Facility: [facility] Address: [address] [place] [address] Performed By: #### 5 8410-2 #### [facility] IA [id number] [place] [address] [place] MCHC (RBC) [Mass/Vol] 32.1 g/dL Normal 30.5-36.0 [facility] Comment on above: Order Comment: Speci men Type: BLOOD SPECIMEN Ordering Facility: [facility] Address: [address] [place] [address] Performed By: #### 5 8410-2 #### [facility] [place] [id number] [place] [address] [place] MCV (RBC) [Entitic vol] 92.4 fL Normal 80.0-100.0 [facility] Comment on above: Order Comment: Speci men Type: BLOOD SPECIMEN Ordering Facility: [facility] Address: [address] [place] [address] Performed By: #### 5 8410-2 #### [facility] IA [id number] [address] [place] [address] [place] Nucleated RBC (Bld) [#/Vol] 10*3/uL Normal <0.01 [facility] Comment on above: Order Comment: Speci men Type: BLOOD SPECIMEN Ordering Facility: [facility] Address: [address] [place] [address] Performed By: #### 5 8410-2 #### [facility] CLIA [id number] [address] [place] [address] [place] Platelet mean volume (Bld) [Entitic vol] 9.6 fL Normal 9.0-12.7 [facility] Comment on above: Order Comment: Speci men Type: BLOOD SPECIMEN Ordering Facility: [facility] Address: [address] [place] [address] Performed By: #### 5 8410-2 #### [facility] CLIA [id number] [address] [place] [address] [place] Platelets (Bld) [#/Vol] 352 10*3/uL Normal 150-400 [facility] Comment on above: Order Comment: Speci men Type: BLOOD SPECIMEN Ordering Facility: [facility] Address: [address] [place] [address] Performed By: #### 5 8410-2 #### [facility] CLIA [id number] [address] [place] [address] [place] RBC (Bld) [#/Vol] 4.59 10*6/uL Normal 3.90-5.20 [facility] Comment on above: Order Comment: Speci men Type: BLOOD SPECIMEN Ordering Facility: [facility] Address: [address] [place] [address] Performed By: #### 5 8410-2 #### [facility] CLIA [id number] [address] [place] [address] [place] WBC (Bld) [#/Vol] 6.15 10*3/uL Normal 3.70-11.00 [facility] Comment on above: Order Comment: Speci men Type: BLOOD SPECIMEN Ordering Facility: [facility] Address: [address] [place] [address] Performed By: #### 5 8410-2 #### [facility] CLIA [id number] [address] [facility] [place] [address] [place] Comprehensive metabolic 2000 panelon 02-28-2024 Albumin [Mass/Vol] 4.1 g/dL 3.9 - 4.9 g/dL [facility] ALP [Catalytic activity/Vol] 77 U/L 34 - 123 U/L [facility] ALT [Catalytic activity/Vol] 14 U/L 7 - 38 U/L [facility] Anion gap [Moles/Vol] 12 mmol/L 8 - 15 mmol/L [facility] AST [Catalytic activity/Vol] 18 U/L 13 - 35 U/L [facility] Bilirubin [Mass/Vol] 0.5 mg/dL 0.2 - 1 .3 mg/dL [facility] Calcium [Mass/Vol] 9.4 mg/dL 8.5 - 10. 2 mg/dL [facility] Chloride [Moles/Vol] 102 mmol/L 98 - 10 7 mmol/L [facility] CO2 [Moles/Vol] 27 mmol/L 22 - 30 mmol/L [facility] Creatinine [Mass/Vol] 0.81 mg/dL 0.58 - 0.96 mg/dL [facility] GFR/1.73 sq M.predicted among non-blacks MDRD (S/P/Bld) [Vol rate/Area] 74 mL/min/{1.73_m2} - PINF [facility] Comment on above: Estimated Glomerular Filtration [...] 107 mg/dL High 74 - 99 mg/dL [facility] Comment on above: The [place] [employer] (ADA) provides guidance for [...] Standards of Medical Care in Diabetes 2016, [place] [employer]. Diabetes Care. 2016.39(Suppl 1). Interpretation and review of laboratory results Abnormal [facility] Potassium [Moles/Vol] 4.4 mmol/L 3.7 - 5.1 mmol/L [facility] Protein [Mass/Vol] 7.5 g/dL 6.3 - 8.0 g/dL [facility] Sodium [Moles/Vol] 141 mmol/L 136 - 144 mmol/L [facility] Urea nitrogen [Mass/Vol] 11 mg/dL 7 - 21 mg/dL [facility] Albumin [Mass/Vol] 4.1 g/dL Normal 3.9-4.9 [facility] Comment on above: Order Comment: Eilu hooker Type: BLOOD SPECIMEN Ordering Facility: [facility] Address: [address] [place] [address] Performed By: #### 3 016-3, 54238-3 #### [facility] CLIA [id number] [address] [place] [address] [place] ALP [Catalytic activity/Vol] 77 U/L Normal 34-123 [facility] Comment on above: Order Comment: Eliu hooker Type: BLOOD SPECIMEN Ordering Facility: [facility] Address: [address] [place] [address] Performed By: #### 3 016-3, 12649-9 #### [facility] CLIA [id number] [address] [place] [address] [place] ALT [Catalytic activity/Vol] 14 U/L Normal 7-38 [facility] Comment on above: Order Comment: Eliu hooker Type: BLOOD SPECIMEN Ordering Facility: [facility] Address: [address] [place] [address] Performed By: #### 3 016-3, 16710-6 #### [facility] CLIA [id number] [address] [place] [address] [place] Anion gap [Moles/Vol] 12 mmol/L Normal 8-15 [facility] Comment on above: Order Comment: Speci men Type: BLOOD SPECIMEN Ordering Facility: [facility] Address: [address] [place] [address] Performed By: #### 3 016-3, #### [facility] CLIA [id number] [address] [place] [address] [place] AST [Catalytic activity/Vol] 18 U/L Normal 13-35 [facility] Comment on above: Order Comment: Speci men Type: BLOOD SPECIMEN Ordering Facility: [facility] Address: [address] [place] [address] Performed By: #### 3 016-3, #### [facility] CLIA [id number] [address] [place] [address] [place] Bilirubin [Mass/Vol] 0.5 mg/dL Normal 0.2-1.3 [facility] Comment on above: Order Comment: Speci men Type: BLOOD SPECIMEN Ordering Facility: [facility] Address: [address] [place] [address] Performed By: #### 3 016-3, #### [facility] CLIA [id number] [address] [place] [address] [place] Calcium [Mass/Vol] 9.4 mg/dL Normal 8.5-10.2 [facility] Comment on above: Order Comment: Speci men Type: BLOOD SPECIMEN Ordering Facility: [facility] Address: [address] [place] [address] Performed By: #### 3 016-3, #### [facility] CLIA [id number] [address] [place] [address] [place] Chloride [Moles/Vol] 102 mmol/L Normal 98-107 [facility] Comment on above: Order Comment: Speci men Type: BLOOD SPECIMEN Ordering Facility: [facility] Address: [address] [place] [address] Performed By: #### 3 016-3, 20798-9 #### [facility] CLIA [id number] [address] [facility] [place] [address] [place] CO2 [Moles/Vol] 27 mmol/L Normal 22-30 [facility] Comment on above: Order Comment: Speci men Type: BLOOD SPECIMEN Ordering Facility: [facility] Address: [address] [place] [address] Performed By: #### 3 016-3, 16336-1 #### [facility] CLIA [id number] [address] [facility] [place] [address] [place] Creatinine [Mass/Vol] 0.81 mg/dL Normal 0.58-0.96 [facility] Comment on above: Order Comment: Speci men Type: BLOOD SPECIMEN Ordering Facility: [facility] Address: [address] [place] [address] Performed By: #### 3 016-3, 90555-7 #### [facility] CLIA [id number] [facility] [place] [address] [place] Creatinine and Glomerular filtration rate.predicted panel (S/P/Bld) 74 mL/min/1.73m??? Normal >=60 [facility] Comment on above: Order Comment: Speci men Type: BLOOD SPECIMEN Ordering Facility: [facility] Address: [address] [place] [address] Result Comment: Joycelyn mated Glomerular Filtration Rate [...] actual GFR. Performed By: #### 3 016-3, 84118-1 #### [facility] CLIA [id number] [facility] [place] [address] [place] Glucose [Mass/Vol] 107 mg/dL High 74-99 [facility] Comment on above: Order Comment: Speci men Type: BLOOD SPECIMEN Ordering Facility: [facility] Address: [address] [place] [address] Result Comment: The [place] [employer] (ADA) provides guidance for cutoff [...] Standards of Medical Care in Diabetes 2016, [place] [employer]. Diabetes Care. 2016.39(Suppl 1). Performed By: #### 3 016-3, 69995-5 #### [facility] CLIA [id number] [address] [place] [address] [place] Potassium [Moles/Vol] 4.4 mmol/L Normal 3.7-5.1 [facility] Comment on above: Order Comment: Speci men Type: BLOOD SPECIMEN Ordering Facility: [facility] Address: [address] [place] [address] Performed By: #### 3 016-3, 50418-0 #### [facility] CLIA [id number] [address] [place] [address] [place] Protein [Mass/Vol] 7.5 g/dL Normal 6.3-8.0 [facility] Comment on above: Order Comment: Speci men Type: BLOOD SPECIMEN Ordering Facility: [facility] Address: [address] [place] [address] Performed By: #### 3 016-3, 69735-6 #### [facility] CLIA [id number] [address] [place] [address] [place] Sodium [Moles/Vol] 141 mmol/L Normal 136-144 [facility] Comment on above: Order Comment: Speci men Type: BLOOD SPECIMEN Ordering Facility: [facility] Address: [address] [place] [address] Performed By: #### 3 016-3, 57590-0 #### [facility] CLIA [id number] [address] [facility] [place] [address] [place] [facility] Urea nitrogen [Mass/Vol] 11 mg/dL Normal 7- [facility] Comment on above: Order Comment: Speci men Type: BLOOD SPECIMEN Ordering Facility: [facility] Address: [address] [place], [place] [address] Performed By: #### 3 016-3, 41277-1 #### [facility] CLIA [id number] [address] [facility] [place] [address] [place] ECG COMPLETEon 02-28-2024 ECG COMPLETE Ventricular Rate : 113 BPM Atrial Rate : 113 BPM P-R Interval : 166 ms QRS Duration : 86 ms Q-T Interval : 318 ms QTC Calculation(Bazett) : 436 ms Calculated P Rittman : 66 degrees Calculated R Rittman : -50 degrees Calculated T Rittman : 69 degrees Sinus tachycardia Right atrial enlargement Left anterior fascicular block Possible Anterolateral infarct , age undetermined Abnormal ECG No previous ECGs available Confirmed by DANIEL LAZO MD ([id number]) on 03/06/2024 10:31:42 AM NAME : BILLIE YEBOAH PID : [id number] : 1945 Gender : Female Race : ORD : [id number] Procedure Date : Feb 28 2024 13:49:41 Edit Date : Mar 06 2024 10:31:46 Diagnosis: Sinus tachycardia Right atrial enlargement Left anterior fascicular block Possible Anterolateral infarct , age undetermined Abnormal ECG No previous ECGs available Confirmed by DANIEL LAZO MD ([id number]) on 03/06/2024 10:31:42 AM Test Reason : HCS Location : 301 : [facility] Overread By : DANIEL LAZO MD Edited By : DANIEL LAZO MD Referred By : FUNMILAYO ODELL Acquired by : dm, Normal [facility] Free T4 [Mass/Vol]on 024 Interpretation and review of laboratory results Abnormal [facility] HISTORY PHYSICALon HISTORY PHYSICAL HNO ID: [id number] Author: ZAIDA SORIANO PA-C Service: ? Author Type: Physician Surgical Dental Assistant Type: H&P Filed: 03/10/2024 13:47 Note Text: [...] has never had a prior EKG at [facility] before, but has at either [facility] or [facility]. Faxing for records for comparison. 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 On daily Etodolac and has Tramadol for [...] 35 kg/m2 Non-male patient STOP-Bang Score: 1 [id number] Score: [id number] Score: 0 ANESTHESIA FINDINGS: Intubation History: No [...] mg tablet ECG COMPLETE Faxed release to [facility] (more content not included)... Normal [facility] T4 FREE/FREE THYROXINEon Free T4 [Mass/Vol] 1.9 ng/dL High 0.9 - 1.7 ng/dL [facility] T4 Free SerPl-mCncon 024 Free T4 [Mass/Vol] 1.9 ng/dL High 0.9-1.7 [facility] Comment on above: Order Comment: Eliu hooker Type: BLOOD SPECIMEN Ordering Facility: [facility] Address: [address] [place] [address] Performed By: #### 3 024-7 #### [facility] CLIA [id number] [address] [place] [address] [place] THYROID STIMULATING HORMONEo n 02-28-2024 TSH Qn 0.120 m[IU]/L Low [facility] TSH Qnon 02-28-2024 Interpretation and review of laboratory results Abnormal [facility] TSH SerPl-aCncon 02-28-2024 TSH Qn 0.120 m[IU]/L Low 0.270-4.200 [facility] Comment on above: Order Comment: Eliu hooker Type: BLOOD SPECIMEN Ordering Facility: [facility] Address: [address] [place] [address] Performed By: #### 3 016-3, 13336-0 #### [facility] CLIA [id number] [address] [place] [address] [place] CNOVon 02-23-2024 CNOV Office Visit ([facility]) BILLIE YEBOAH ([id number]) 1945 F Date Time Provider Department 02/23/24 2:40 PM FUNMILAYO ODELL [facility] During your visit today, we recorded [...] ALLERGIES Allergen Reactions Ciprofloxacin Rash, Unknown Nitrofurantoin Hoke* Other: See Comments, GI Upset Sulfamethoxazole-Tr* Other: [...] exam reveals no gross blood or masses Cash Control Specialist present: Yes, Sarah Hess Anoscopy: The patient [...] MD Colorectal Surgery Referring Provider: MANOJ FORBES [[id number]] Allergies As of Date: 02/23/2024 Noted Allergy Reaction CIPROFLOXACIN 05/31/2013 2 - Rash 16 - Unknown NITROFURANTOIN MONOHYD/M-CRYST 10/27/2022 14 - Other: See Comments 8 - GI Upset SULFAMETHOXAZOLE-TRI METHOPRIM 05/31/2013 14 - Other: See Comments 2 - Rash Date Reviewed: 02/23/2024 Reviewed by: Sarah Marroquin OCCA - Fully Assessed Reason for Visit: New Patient [172] Hemorrhoids [56134] Rectal Bleeding [202] Primary Visit Diagnosis:Hemorrhoid s, [...] Status:Closed by FUNMILAYO ODELL on 02/25/24 Normal [facility] CNOVon 11-03-2023 CNOV Office Visit ([facility]) BILLIE YEBOAH ([id number]) 1945 F Date Time Provider Department 11/03/23 2:40 PM FUNMILAYO ODELL [facility] During your visit today, we recorded [...] for internal providers or letter via the [employer] for external providers. Chief Complaint: [...] ALLERGIES Allergen Reactions Ciprofloxacin Rash, Unknown Nitrofurantoin Hoke* Other: See Comments, GI Upset Sulfamethoxazole-Tr* Other: [...] has a weak squeeze and discoordinated push Cash Control Specialist present: Yes, Sarah Z Anoscopy: The patient [...] reports was (more content not included)... Normal [facility] [place] [facility] BILLIE YEBOAH ([id number]) 1945 F Date Time Provider Department 10/11/23 FUNMILAYO ODELL [facility] During your visit today, we recorded [...] by JEAN CARLOS GUNN on 10/11/23 Normal [facility] CBC AUTO DIFFon 08-23-2022 BASO # 0.0 103/ul Normal 0.0-0.1 [facility] Comment on above: Performed By: #### Mike DE LA TORRE VITAD #### [facility] [address] [address] [address] Ryann Pearce Basophils/100 WBC (Bld) 1.0 % Normal 0.2-2.0 [facility] Comment on above: Performed By: #### Mike DE LA TORRE VITAD #### [facility] [address] [address] [address] Ryann Pearce EO # 0.2 103/ul Normal 0.0-0.7 [facility] Comment on above: Performed By: #### I WIL VITAD #### [facility] [address] [place], [place] [address] Dr. Ryann Pearce Eosinophils/100 WBC (Bld) 3.8 % Normal 0.9-7.0 [facility] Comment on above: Performed By: #### Mike DE LA TORRE VITAD #### [facility] [address] [address] [address] Ryann Pearce Erythrocyte distribution width (RBC) [Ratio] 12.1 % Normal 11.0-15.0 [facility] Comment on above: Performed By: #### Mike DE LA TORRE VITAD #### [facility] [address] [place] [address] Dr. Ryann Pearce Hematocrit (Bld) [Volume fraction] 35.5 % Critically low 36.0-48.0 [facility] Comment on above: Performed By: #### Mike DE LA TORRE VITAD #### [facility] [address] [place] [address] Dr. Ryann Pearce Hemoglobin (Bld) [Mass/Vol] 11.7 g/dL Critically low 12.0-16.0 [facility] Comment on above: Performed By: #### Mike DE LA TORRE VITAD #### [facility] [address] [place] [address] Dr. Ryann Pearce IG # 0.01 10e3/ul Normal 0.00-0.03 [facility] Comment on above: Performed By: #### Mike DE LA TORRE VITAD #### [facility] [address] [place] [address] Dr. Ryann Pearce IG % 0.3 % Normal 0.0-0.5 [facility] Comment on above: Performed By: #### Mike DE LA TORRE VITAD #### [facility] [address] [place] [address] Dr. Ryann Pearce LYMPH # 1.2 103/ul Normal 1.2-3.8 [facility] Comment on above: Performed By: #### Mike DE LA TORRE VITAD #### [facility] [address] [place] [address] Dr. Ryann Pearce Lymphocytes/100 WBC (Bld) 31.5 % Normal 20.5-60.0 [facility] Comment on above: Performed By: #### Mike DE LA TORRE VITAD #### [facility] [address] [place] [address] Dr. Ryann Pearce MANUAL DIFF REQ NO Normal [facility] Comment on above: Performed By: #### Mike DE LA TORRE VITAD #### [facility] [address] [place] [address] Dr. Ryann Pearce MCH (RBC) [Entitic mass] 29.5 pg Normal 26.7-34.0 [facility] Comment on above: Performed By: #### I WIL, VITAD #### [facility] [address] [place] [address] Dr. Ryann Pearce MCHC (RBC) [Mass/Vol] 33.0 g/dL Normal 29.9-35.2 [facility] Comment on above: Performed By: #### Mike DE LA TORRE, VITAD #### [facility] [address] [place] [address] Dr. Ryann Pearce MCV (RBC) [Entitic vol] 89.6 fL Normal 81.0-99.0 [facility] Comment on above: Performed By: #### Mike DE LA TORRE, VITAD #### [facility] [address] [place] [address] Dr. Ryann Pearce MONO # 0.5 103/ul Normal 0.3-0.8 [facility] Comment on above: Performed By: #### Mike DE LA TORRE VITAD #### [facility] [address] [place] [address] Dr. Ryann Peacre Monocytes/100 WBC (Bld) 13.2 % Critically high 1.7-12.0 [facility] Comment on above: Performed By: #### Mike DE LA TORRE, VITAD #### [facility] [address] [place] [address] Dr. Ryann Pearce NEUT # 2.0 103/ul Normal 1.4-6.5 [facility] Comment on above: Performed By: #### Mike DE LA TORRE, VITAD #### [facility] [address] [place] [address] Dr. Ryann Pearce Neutrophils/100 WBC (Bld) 50.2 % Normal 43.0-75.0 [facility] Comment on above: Performed By: #### Mike DE LA TORRE, VITAD #### [facility] [address] [place] [address] Dr. Ryann Pearce Platelet mean volume (Bld) [Entitic vol] 8.9 fL Critically low 9.5-13.5 [facility] Comment on above: Performed By: #### Mike DE LA TORRE, VITAD #### [facility] [address] [address] [address] Ryann Pearce PLT 253 103/ul Normal 150-450 [facility] Comment on above: Performed By: #### I WIL VITAD #### [facility] [address] [place] [address] Dr. Ryann Pearce RBC 3.96 106/ul Critically low 4.20-5.40 [facility] Comment on above: Performed By: #### I WIL VITAD #### [facility] [address] [place] [address] Dr. Ryann Pearce WBC 3.9 103/ul Critically low 4.0-11.0 [facility] Comment on above: Performed By: #### I WIL VITAD #### [facility] [address] [place] [address] Dr. Ryann Pearce PROF 14(COMP METB)on 023 Albumin [Mass/Vol] 3.3 g/dL Critically low 3.4-5.0 [facility] Comment on above: Performed By: #### I WIL VITAD #### [facility] [address] [place] [address] Dr. Ryann Pearce Albumin/Globulin [Mass ratio] 1.0 {ratio} Normal [facility] Comment on above: Performed By: #### I WIL VITAD #### [facility] [address] [place] [address] Dr. Ryann Pearce ALP [Catalytic activity/Vol] 65 U/L Normal 46-116 [facility] Comment on above: Performed By: #### I WIL VITAD #### [facility] [address] [place] [address] Dr. Ryann Pearce ALT [Catalytic activity/Vol] 30 U/L Normal 14-59 [facility] Comment on above: Performed By: #### I WIL, VITAD #### [facility] [address] [place] [address] Dr. Ryann Pearce Anion gap [Moles/Vol] 10.0 mmol/L Normal [facility] Comment on above: Performed By: #### I WIL, VITAD #### [facility] [address] [address] [address] Ryann Pearce AST [Catalytic activity/Vol] 26 U/L Normal 15-37 [facility] Comment on above: Performed By: #### I WIL, VITAD #### [facility] [address] [address] [address] Ryann Pearce Bilirubin [Mass/Vol] 0.4 mg/dL Normal 0.2-1.0 [facility] Comment on above: Performed By: #### I WIL, VITAD #### [facility] [address] [place] [address] Dr. Ryann Pearce Calcium [Mass/Vol] 8.8 mg/dL Normal 8.5-10.1 [facility] Comment on above: Performed By: #### I WIL, VITAD #### [facility] [address] [place] [address] Dr. Ryann Pearce Chloride [Moles/Vol] 105 mmol/L Normal 98-107 [facility] Comment on above: Performed By: #### I WIL, VITAD #### [facility] [address] [place] [address] Dr. Ryann Pearce CO2 [Moles/Vol] 30.1 mmol/L Normal 21.0-32.0 [facility] Comment on above: Performed By: #### I WIL, VITAD #### [facility] [address] [place] [address] Dr. Ryann Pearce Creatinine [Mass/Vol] 0.90 mg/dL Normal 0.55-1.02 [facility] Comment on above: Performed By: #### I WIL, VITAD #### [facility] [address] [place] [address] Dr. Ryann Pearce EGFR-AF PUERTO RICAN >60 Normal >=60 [facility] Comment on above: Performed By: #### I WIL, VITAD #### [facility] [address] [place] [address] Dr. Ryann Pearce EGFR-NON AF PUERTO RICAN >60 Normal >=60 [facility] Comment on above: Performed By: #### I WIL, VITAD #### [facility] [address] [place] [address] Dr. Ryann Pearce Globulin (S) [Mass/Vol] 3.3 g/dL Normal [facility] Comment on above: Performed By: #### I WIL, VITAD #### [facility] [address] [place] [address] Dr. Ryann Pearce Glucose [Mass/Vol] 100 mg/dL Normal 74-106 [facility] Comment on above: Performed By: #### I WIL, VITAD #### [facility] [address] [place] [address] Dr. Ryann Pearce Potassium [Moles/Vol] 4.1 mmol/L Normal 3.5-5.1 [facility] Comment on above: Performed By: #### I WIL, VITAD #### [facility] [address] [place] [address] Dr. Ryann Pearce Protein [Mass/Vol] 6.6 g/dL Normal 6.4-8.2 [facility] Comment on above: Performed By: #### I WIL VITAD #### [facility] [address] [place] [address] Dr. Ryann Pearce Sodium [Moles/Vol] 141 mmol/L Normal 136-145 [facility] Comment on above: Performed By: #### I WIL, VITAD #### [facility] [address] [place] [address] Dr. Ryann Pearce Urea nitrogen [Mass/Vol] 13.0 mg/dL Normal 7.0-18.0 [facility] Comment on above: Performed By: #### I WIL, VITAD #### [facility] [address] [place] [address] Dr. Ryann Pearce Urea nitrogen/Creatinine [Mass ratio] 14.4 mg/mg Normal [facility] Comment on above: Performed By: #### I WIL, VITAD #### [facility] [address] [place] [address] Dr. Ryann Pearce CBC AUTO DIFFon 06-06-2022 BASO # 0.0 103/ul Normal 0.0-0.1 [facility] Comment on above: Performed By: #### Mike DE LA TORRE VITAD #### [facility] [address] [place] [address] Dr. Ryann Pearce Basophils/100 WBC (Bld) 1.2 % Normal 0.2-2.0 [facility] Comment on above: Performed By: #### Mike DE LA TORRE VITAD #### [facility] [address] [place] [address] Dr. Ryann Pearce EO # 0.1 103/ul Normal 0.0-0.7 [facility] Comment on above: Performed By: #### Mike DE LA TORRE VITAD #### [facility] [address] [place] [address] Dr. Ryann Pearce Eosinophils/100 WBC (Bld) 3.3 % Normal 0.9-7.0 [facility] Comment on above: Performed By: #### Mike DE LA TORRE VITAD #### [facility] [address] [place] [address] Dr. Ryann Pearce Erythrocyte distribution width (RBC) [Ratio] 12.5 % Normal 11.0-15.0 [facility] Comment on above: Performed By: #### Mike DE LA TORRE VITAD #### [facility] [address] [place] [address] Dr. Ryann Pearce Hematocrit (Bld) [Volume fraction] 38.7 % Normal 36.0-48.0 [facility] Comment on above: Performed By: #### Mike DE LA TORRE VITAD #### [facility] [address] [place] [address] Dr. Ryann Pearce Hemoglobin (Bld) [Mass/Vol] 12.8 g/dL Normal 12.0-16.0 [facility] Comment on above: Performed By: #### Mike DE LA TORRE VITAD #### [facility] [address] [place] [address] Dr. Ryann Pearce IG # 0.01 10e3/ul Normal 0.00-0.03 [facility] Comment on above: Performed By: #### Mike DE LA TORRE VITAD #### [facility] [address] [place] [address] Dr. Ryann Pearce IG % 0.3 % Normal 0.0-0.5 [facility] Comment on above: Performed By: #### I WIL, VITAD #### [facility] [address] [place] [address] Dr. Ryann Pearce LYMPH # 1.1 103/ul Critically low 1.2-3.8 [facility] Comment on above: Performed By: #### I WIL, VITAD #### [facility] [address] [place] [address] Dr. Ryann Pearce Lymphocytes/100 WBC (Bld) 32.0 % Normal 20.5-60.0 [facility] Comment on above: Performed By: #### I WIL, VITAD #### [facility] [address] [place] [address] Dr. Ryann Pearce MANUAL DIFF REQ NO Normal [facility] Comment on above: Performed By: #### I WIL VITAD #### [facility] [address] [place] [address] Dr. Ryann Pearce MCH (RBC) [Entitic mass] 29.6 pg Normal 26.7-34.0 [facility] Comment on above: Performed By: #### I WIL, VITAD #### [facility] [address] [place] [address] Dr. Ryann Pearce MCHC (RBC) [Mass/Vol] 33.1 g/dL Normal 29.9-35.2 [facility] Comment on above: Performed By: #### I WIL, VITAD #### [facility] [address] [place] [address] Dr. Ryann Pearce MCV (RBC) [Entitic vol] 89.4 fL Normal 81.0-99.0 [facility] Comment on above: Performed By: #### I WIL, VITAD #### [facility] [address] [place] [address] Dr. Ryann Pearce MONO # 0.4 103/ul Normal 0.3-0.8 [facility] Comment on above: Performed By: #### I WIL VITAD #### [facility] [address] [address] [address] Ryann Pearce Monocytes/100 WBC (Bld) 11.1 % Normal 1.7-12.0 [facility] Comment on above: Performed By: #### I WIL, VITAD #### [facility] [address] [place] [address] Dr. Ryann Pearce NEUT # 1.7 103/ul Normal 1.4-6.5 [facility] Comment on above: Performed By: #### I WIL, VITAD #### [facility] [address] [place] [address] Dr. Ryann Pearce Neutrophils/100 WBC (Bld) 52.1 % Normal 43.0-75.0 [facility] Comment on above: Performed By: #### I WLI, VITAD #### [facility] [address] [place] [address] Dr. Ryann Pearce Platelet mean volume (Bld) [Entitic vol] 9.3 fL Critically low 9.5-13.5 [facility] Comment on above: Performed By: #### I WIL VITAD #### [facility] [address] [place] [address] Dr. Ryann Pearce PLT 255 103/ul Normal 150-450 [facility] Comment on above: Performed By: #### I WIL, VITAD #### [facility] [address] [place] [address] Dr. Ryann Pearce RBC 4.33 106/ul Normal 4.20-5.40 [facility] Comment on above: Performed By: #### I WIL, VITAD #### [facility] [address] [place] [address] Dr. Ryann Pearce WBC 3.3 103/ul Critically low 4.0-11.0 [facility] Comment on above: Performed By: #### I WIL VITAD #### [facility] [address] [place] [address] Dr. Ryann Pearce FREE THYROXINE INDEX T7on FTI 2.96 Normal 1.30-4.50 [facility] Comment on above: Performed By: #### T SH, LIPID, T7, CMP #### [facility] [address] [address] [address] Ryann Pearce T3U 34.0 % Normal 30.0-39.0 [facility] Comment on above: Performed By: #### T SH, LIPID, T7, CMP #### [facility] [address] [address] [address] Ryann Pearce T4 [Mass/Vol] 8.70 ug/dL Normal 4.80-13.90 [facility] Comment on above: Performed By: #### T SH, LIPID, T7, CMP #### [facility] [address] [address] [address] Ryann Pearce GLYCOHEMOGLOBIN A1Con 2021 ADA RECOMMENDATION SEE BELOW Normal [facility] Comment on above: Result Comment: ADA RECOMMENDED LIMIT 4.0 - 6.0 ADA THERAPEUTIC TARGET < 7.0 ACTION SUGGESTED > 7.0 Performed By: #### A 1C #### [facility] [address] [address] [address] Ryann Pearce Glucose [Mass/Vol] 105 mg/dL Normal [facility] Comment on above: Performed By: #### A 1C #### [facility] [address] [address] [address] Ryann Pearce HbA1c (Bld) [Mass fraction] 5.3 % Normal 4.5-6.2 [facility] Comment on above: Performed By: #### A 1C #### [facility] [address] [address] [address] Ryann Pearce IRONon 06-06-2022 Iron [Mass/Vol] 104.0 ug/dL Normal 50.0-170.0 [facility] Comment on above: Performed By: #### I NIKI DE LA TORRE #### [facility] [address] [place] [address] Dr. Ryann Pearce LIPID PROFILEon 06-06-2022 CHOL-HDL RATIO NORM SEE BELOW Normal [facility] Comment on above: Result Comment: 3.3 - 4.4 LOW RISK 4.4 - 7.1 AVERAGE RISK 7.1 - 11.0 MODERATE RISK >11.0 HIGH RISK Performed By: #### T SH, LIPID, T7, CMP #### [facility] [address] [address] [address] Ryann Pearce Cholesterol [Mass/Vol] 160 mg/dL Normal <=200 [facility] Comment on above: Performed By: #### T SH, LIPID, T7, CMP #### [facility] [address] [address] [address] Ryann Pearce Cholesterol in HDL [Mass/Vol] 75 mg/dL Critically high 40-60 [facility] Comment on above: Performed By: #### T SH, LIPID, T7, CMP #### [facility] [address] [place] [address] Dr. Ryann Pearce Cholesterol in LDL [Mass/Vol] 66.6 mg/dL Normal [facility] Comment on above: Performed By: #### T SH, LIPID, T7, CMP #### [facility] [address] [place] [address] Dr. Ryann Pearce Cholesterol.total/Chol esterol in HDL [Mass ratio] 2.1 {ratio} Normal [facility] Comment on above: Performed By: #### T SH, LIPID, T7, CMP #### [facility] [address] [place] [address] Dr. Ryann Pearce HDL NORMAL > or = 60 mg/dl - LOW CARDIOVASCULAR RISK <40 mg/dl - HIGH CARDIOVASCULAR RISK Normal [facility] Comment on above: Performed By: #### T SH, LIPID, T7, CMP #### [facility] [address] [place] [address] Dr. Ryann Pearce LDL CALC NORMAL SEE BELOW Normal [facility] Comment on above: Result Comment: <100 mg/dl OPTIMAL 100 - 129 mg/dl NEAR OR ABOVE OPTIMAL 130 - 159 mg/dl BORDERLINE HIGH 160 - 189 mg/dl HIGH >190 mg/dl VERY HIGH Performed By: #### T SH, LIPID, T7, CMP #### [facility] [address] [place] [address] Dr. Ryann Pearce Triglyceride [Mass/Vol] 92 mg/dL Normal <=150 [facility] Comment on above: Performed By: #### T SH, LIPID, T7, CMP #### [facility] [address] [address] [address] Ryann Pearce VLDL CALC 18.4 mg/dL Normal [facility] Comment on above: Performed By: #### T SH, LIPID, T7, CMP #### [facility] [address] [address] [address] Ryann Pearce PROF 14(COMP METB)on 022 Albumin [Mass/Vol] 3.4 g/dL Normal 3.4-5.0 [facility] Comment on above: Performed By: #### T SH, LIPID, T7, CMP #### [facility] [address] [place] [address] Dr. Ryann Pearce Albumin/Globulin [Mass ratio] 1.0 {ratio} Normal [facility] Comment on above: Performed By: #### T SH, LIPID, T7, CMP #### [facility] [address] [place] [address] Dr. Ryann Pearce ALP [Catalytic activity/Vol] 71 U/L Normal 46-116 [facility] Comment on above: Performed By: #### T SH, LIPID, T7, CMP #### [facility] [address] [place] [address] Dr. Ryann Pearce ALT [Catalytic activity/Vol] 19 U/L Normal 14-59 [facility] Comment on above: Performed By: #### T SH, LIPID, T7, CMP #### [facility] [address] [place] [address] Dr. Ryann Pearce Anion gap [Moles/Vol] 7.8 mmol/L Normal [facility] Comment on above: Performed By: #### T SH, LIPID, T7, CMP #### [facility] [address] [place] [address] Dr. Ryann Pearce AST [Catalytic activity/Vol] 21 U/L Normal 15-37 [facility] Comment on above: Performed By: #### T SH, LIPID, T7, CMP #### [facility] [address] [place] [address] Dr. Ryann Pearce Bilirubin [Mass/Vol] 0.6 mg/dL Normal 0.2-1.0 [facility] Comment on above: Performed By: #### T SH, LIPID, T7, CMP #### [facility] [address] [address] [address] Ryann Pearce Calcium [Mass/Vol] 8.7 mg/dL Normal 8.5-10.1 [facility] Comment on above: Performed By: #### T SH, LIPID, T7, CMP #### [facility] [address] [address] [address] Ryann Pearce Chloride [Moles/Vol] 103 mmol/L Normal 98-107 [facility] Comment on above: Performed By: #### T SH, LIPID, T7, CMP #### [facility] [address] [address] [address] Ryann Pearce CO2 [Moles/Vol] 34.4 mmol/L Critically high 21.0-32.0 [facility] Comment on above: Performed By: #### T SH, LIPID, T7, CMP #### [facility] [address] [address] [address] Ryann Pearce Creatinine [Mass/Vol] 0.75 mg/dL Normal 0.55-1.02 [facility] Comment on above: Performed By: #### T SH, LIPID, T7, CMP #### [facility] [address] [address] [address] Ryann Pearce EGFR-AF PUERTO RICAN >60 Normal >=60 [facility] Comment on above: Performed By: #### T SH, LIPID, T7, CMP #### [facility] [address] [address] [address] Ryann Pearce EGFR-NON AF PUERTO RICAN >60 Normal >=60 [facility] Comment on above: Performed By: #### T SH, LIPID, T7, CMP #### [facility] [address] [address] [address] Ryann Pearce Globulin (S) [Mass/Vol] 3.5 g/dL Normal [facility] Comment on above: Performed By: #### T SH, LIPID, T7, CMP #### [facility] [address] [address] [address] Ryann Pearce Glucose [Mass/Vol] 95 mg/dL Normal 74-106 [facility] Comment on above: Performed By: #### T SH, LIPID, T7, CMP #### [facility] [address] [place] [address] Dr. Ryann Pearce Potassium [Moles/Vol] 4.2 mmol/L Normal 3.5-5.1 [facility] Comment on above: Performed By: #### T SH, LIPID, T7, CMP #### [facility] [address] [place] [address] Dr. Ryann Pearce Protein [Mass/Vol] 6.9 g/dL Normal 6.4-8.2 [facility] Comment on above: Performed By: #### T SH, LIPID, T7, CMP #### [facility] [address] [place] [address] Dr. Ryann Pearce Sodium [Moles/Vol] 141 mmol/L Normal 136-145 [facility] Comment on above: Performed By: #### T SH, LIPID, T7, CMP #### [facility] [address] [place] [address] Dr. Ryann Pearce Urea nitrogen [Mass/Vol] 10.0 mg/dL Normal 7.0-18.0 [facility] Comment on above: Performed By: #### T SH, LIPID, T7, CMP #### [facility] [address] [place] [address] Dr. Ryann Pearce Urea nitrogen/Creatinine [Mass ratio] 13.3 mg/mg Normal [facility] Comment on above: Performed By: #### T SH, LIPID, T7, CMP #### [facility] [address] [place] [address] Dr. Ryann Pearce TSHon 06-06-2022 TSH 0.151 uIU/mL Critically low 0.358-3.740 [facility] Comment on above: Performed By: #### T SH, LIPID, T7, CMP #### [facility] [address] [address] [address] Ryann Pearce VITAMIN D 25 OHon 06-06-2022 VIT D 25-OH 75.4 ng/mL Normal [facility] Comment on above: Performed By: #### I WIL VITAD #### [facility] [address] [address] [address] Ryann Pearce VIT D RANGES SEE BELOW Normal [facility] Comment on above: Result Comment: <20 ng/mL Vit D deficient 20 - <30 ng/mL Vit D insufficient 30 - 100 ng/mL Vit D sufficient >100 ng/mL Potential Toxicity Performed By: #### I WIL VITAD #### [facility] [address] [address] [address] Ryann Pearce MG MAMM SCREEN 3D KRISTINA CADon 05-11-2022 MG MAMM SCREEN 3D KRISTINA CAD Patient: BILLIE YEBOAH Exam Date: 05/11/2022 : 1945 Gender:F Ordering : DR GISELLA PORTER . Admission #: [id number] Family : Order #: [id number] CLICK HERE TO VIEW EXAM RADIOLOGY REPORT [...] breast cancer at age 80. LOCATION: [facility] BREAST COMPOSITION: Scattered areas fibroglandular density. [...] MD on 05/11/2022 at 12:45 Normal [facility] CBC AUTO DIFFon 02-21-2022 BASO # 0.0 103/ul Normal 0.0-0.1 [facility] Comment on above: Performed By: #### I WIL VITAD #### [facility] [address] [place] [address] Dr. Ryann Pearce Basophils/100 WBC (Bld) 0.5 % Normal 0.2-2.0 [facility] Comment on above: Performed By: #### Mike DE LA TORRE VITAD #### [facility] [address] [place] [address] Dr. Ryann Pearce EO # 0.2 103/ul Normal 0.0-0.7 [facility] Comment on above: Performed By: #### Mike DE LA TORRE VITAD #### [facility] [address] [place] [address] Dr. Ryann Pearce Eosinophils/100 WBC (Bld) 3.9 % Normal 0.9-7.0 [facility] Comment on above: Performed By: #### Mike DE LA TORRE VITAD #### [facility] [address] [place] [address] Dr. Ryann Pearce Erythrocyte distribution width (RBC) [Ratio] 12.8 % Normal 11.0-15.0 [facility] Comment on above: Performed By: #### Mike DE LA TORRE VITAD #### [facility] [address] [place] [address] Dr. Ryann Pearce Hematocrit (Bld) [Volume fraction] 36.5 % Normal 36.0-48.0 [facility] Comment on above: Performed By: #### Mike DE LA TORRE VITAD #### [facility] [address] [place] [address] Dr. Ryann Pearce Hemoglobin (Bld) [Mass/Vol] 11.9 g/dL Critically low 12.0-16.0 [facility] Comment on above: Performed By: #### Mike DE LA TORRE VITAD #### [facility] [address] [place] [address] Dr. Ryann Pearce IG # 0.01 10e3/ul Normal 0.00-0.03 [facility] Comment on above: Performed By: #### Mike DE LA TORRE VITAD #### [facility] [address] [address] [address] Ryann Pearce IG % 0.2 % Normal 0.0-0.5 [facility] Comment on above: Performed By: #### I WIL, VITAD #### [facility] [address] [place] [address] Dr. Ryann Pearce LYMPH # 1.1 103/ul Critically low 1.2-3.8 [facility] Comment on above: Performed By: #### I WIL, VITAD #### [facility] [address] [place] [address] Dr. Ryann Pearce Lymphocytes/100 WBC (Bld) 25.5 % Normal 20.5-60.0 [facility] Comment on above: Performed By: #### I WIL, VITAD #### [facility] [address] [place] [address] Dr. Ryann Pearce MANUAL DIFF REQ NO Normal [facility] Comment on above: Performed By: #### I WIL VITAD #### [facility] [address] [place] [address] Dr. Ryann Pearce MCH (RBC) [Entitic mass] 29.6 pg Normal 26.7-34.0 [facility] Comment on above: Performed By: #### I WIL, VITAD #### [facility] [address] [place] [address] Dr. Ryann Pearce MCHC (RBC) [Mass/Vol] 32.6 g/dL Normal 29.9-35.2 [facility] Comment on above: Performed By: #### I WIL, VITAD #### [facility] [address] [place] [address] Dr. Ryann Pearce MCV (RBC) [Entitic vol] 90.8 fL Normal 81.0-99.0 [facility] Comment on above: Performed By: #### I WIL, VITAD #### [facility] [address] [place] [address] Dr. Ryann Pearce MONO # 0.4 103/ul Normal 0.3-0.8 [facility] Comment on above: Performed By: #### I WIL, VITAD #### [facility] [address] [address] [address] Ryann Pearce Monocytes/100 WBC (Bld) 10.4 % Normal 1.7-12.0 [facility] Comment on above: Performed By: #### I WIL, VITAD #### [facility] [address] [place] [address] Dr. Ryann Pearce NEUT # 2.5 103/ul Normal 1.4-6.5 [facility] Comment on above: Performed By: #### I WIL, VITAD #### [facility] [address] [place] [address] Dr. Ryann Pearce Neutrophils/100 WBC (Bld) 59.5 % Normal 43.0-75.0 [facility] Comment on above: Performed By: #### I WIL, VITAD #### [facility] [address] [place] [address] Dr. Ryann Pearce Platelet mean volume (Bld) [Entitic vol] 9.1 fL Critically low 9.5-13.5 [facility] Comment on above: Performed By: #### I WIL, VITAD #### [facility] [address] [place] [address] Dr. Ryann Pearce PLT 283 103/ul Normal 150-450 [facility] Comment on above: Performed By: #### I WIL, VITAD #### [facility] [address] [place] [address] Dr. Ryann Pearce RBC 4.02 106/ul Critically low 4.20-5.40 [facility] Comment on above: Performed By: #### I WIL, VITAD #### [facility] [address] [place] [address] Dr. Ryann Pearce WBC 4.2 103/ul Normal 4.0-11.0 [facility] Comment on above: Performed By: #### I WIL, VITAD #### [facility] [address] [place] [address] Dr. Ryann Pearce PROF 14(COMP METB)on 022 Albumin [Mass/Vol] 3.5 g/dL Normal 3.4-5.0 [facility] Comment on above: Performed By: #### I WIL, VITAD #### [facility] [address] [place] [address] Dr. Ryann Pearce Albumin/Globulin [Mass ratio] 1.0 {ratio} Normal [facility] Comment on above: Performed By: #### I WIL, VITAD #### [facility] [address] [address] [address] Ryann Pearce ALP [Catalytic activity/Vol] 68 U/L Normal 46-116 [facility] Comment on above: Performed By: #### I WIL, VITAD #### [facility] [address] [place] [address] Dr. Ryann Pearce ALT [Catalytic activity/Vol] 22 U/L Normal 14-59 [facility] Comment on above: Performed By: #### I WIL, VITAD #### [facility] [address] [place] [address] Dr. Ryann Pearce Anion gap [Moles/Vol] 11.8 mmol/L Normal [facility] Comment on above: Performed By: #### I WIL, VITAD #### [facility] [address] [place] [address] Dr. Ryann Pearce AST [Catalytic activity/Vol] 21 U/L Normal 15-37 [facility] Comment on above: Performed By: #### I WIL, VITAD #### [facility] [address] [address] [address] Ryann Pearce Bilirubin [Mass/Vol] 0.5 mg/dL Normal 0.2-1.0 [facility] Comment on above: Performed By: #### I WIL, VITAD #### [facility] [address] [address] [address] Ryann Pearce Calcium [Mass/Vol] 8.9 mg/dL Normal 8.5-10.1 [facility] Comment on above: Performed By: #### I WIL, VITAD #### [facility] [address] [place] [address] Dr. Ryann Pearce Chloride [Moles/Vol] 104 mmol/L Normal 98-107 [facility] Comment on above: Performed By: #### Mike DE LA TORRE, VITAD #### [facility] [address] [place] [address] Dr. Ryann Pearce CO2 [Moles/Vol] 29.1 mmol/L Normal 21.0-32.0 [facility] Comment on above: Performed By: #### Mike DE LA TORRE, VITAD #### [facility] [address] [place] [address] Dr. Ryann Pearce Creatinine [Mass/Vol] 0.66 mg/dL Normal 0.55-1.02 [facility] Comment on above: Performed By: #### Mike DE LA TORRE, VITAD #### [facility] [address] [place] [address] Dr. Ryann Pearce EGFR-AF PUERTO RICAN >60 Normal >=60 [facility] Comment on above: Performed By: #### Mike DE LA TORRE, VITAD #### [facility] [address] [place] [address] Dr. Ryann Pearce EGFR-NON AF PUERTO RICAN >60 Normal >=60 [facility] Comment on above: Performed By: #### Mike DE LA TORRE, VITAD #### [facility] [address] [place] [address] Dr. Ryann Pearce Globulin (S) [Mass/Vol] 3.4 g/dL Normal [facility] Comment on above: Performed By: #### Mike DE LA TORRE, VITAD #### [facility] [address] [place] [address] Dr. Ryann Pearce Glucose [Mass/Vol] 106 mg/dL Normal 74-106 [facility] Comment on above: Performed By: #### I WIL, VITAD #### [facility] [address] [place] [address] Dr. Ryann Pearce Potassium [Moles/Vol] 3.9 mmol/L Normal 3.5-5.1 [facility] Comment on above: Performed By: #### Mike DE LA TORRE, VITAD #### [facility] [address] [place] [address] Dr. Ryann Pearce Protein [Mass/Vol] 6.9 g/dL Normal 6.4-8.2 [facility] Comment on above: Performed By: #### I WIL, VITAD #### [facility] [address] [address] [address] Ryann Pearce Sodium [Moles/Vol] 141 mmol/L Normal 136-145 [facility] Comment on above: Performed By: #### I WIL, VITAD #### [facility] [address] [address] [address] Ryann Pearce Urea nitrogen [Mass/Vol] 14.0 mg/dL Normal 7.0-18.0 [facility] Comment on above: Performed By: #### I WIL, VITAD #### [facility] [address] [place] [address] Dr. Ryann Pearce Urea nitrogen/Creatinine [Mass ratio] 21.2 mg/mg Normal [facility] Comment on above: Performed By: #### I WIL, VITAD #### [facility] [address] [address] [address] Ryann Pearce XR knee RT 3Von 02-02-2022 XR knee RT 3V [facility] [employer] Other XR knee RT 3V [facility] [employer] Other XR knee RT 3V [address] [place] [address] [employer] Other XR knee RT 3V [address] [employer] Other XR knee RT 3V XRay Report [employer] Other XR knee RT 3V Signed [employer] Other XR knee RT 3V Patient: Billie Yeboah MR#: [id number] [employer] Other XR knee RT 3V [id number] [place] [employer] Other XR knee RT 3V : 1945 Acct:[id number] [place] [employer] Other XR knee RT 3V Age/Sex: 76 / F ADM Date: 02/02/22 [employer] Other XR knee RT 3V Loc: [facility] Room: [facility] [employer] Other XR knee RT 3V Attending Dr: Sydney Erickson II, MD [employer] Other XR knee RT 3V Copies to: Sydney Erickson MD [employer] Other XR knee RT 3V Ordering Provider: Sydney Erickson MD [employer] Other XR knee RT 3V Date of Service: 02/02/22 [employer] Other XR knee RT 3V XR/XR knee RT 3V - NOT FOR ER USE: History of total right knee [employer] Other XR knee RT 3V replacement [employer] Other XR knee RT 3V RIGHT KNEE - 3 views N [employer] Other XR knee RT 3V CLINICAL HISTORY: Follow-up right total knee arthroplasty [employer] Other XR knee RT 3V COMPARISON: Right knee 12/20/2021 [employer] Other XR knee RT 3V FINDINGS: [employer] Other XR knee RT 3V Right knee prosthesis without radiographic complication. No acute bony process. [employer] Other XR knee RT 3V XR/XR knee RT 3V - NOT FOR ER USE [employer] Other XR knee RT 3V IMPRESSION: [employer] Other XR knee RT 3V NO EVIDENCE OF HARDWARE COMPLICATION. [employer] Other XR knee RT 3V Impression dictated by: Migue Groves Jr., D.OSun02/02/2022 4:27 PM [employer] Other XR knee RT 3V Dictation Location: [facility]--08 [employer] Other XR knee RT 3V Transcribed By: PWS 02/02/22 1627 [employer] Other XR knee RT 3V Dictated By: Migue Groves Jr, DO 02/02/22 1626 [employer] Other XR knee RT 3V Signed By: [employer] Other XR knee RT 3V 02/02/22 2934 [employer] Other COVID-19 Positive/NegativeOr dered By: Sydney Erickson on 12-17-2021 SARS-CoV-2 (COVID-19) N gene BRAULIO+probe Ql (Resp) Negative Negative [facility] Comment on above: Testing for SARS-CoV -2 by RT-PCR This test was developed and its performance characteristics determined by [employer] ([employer] and validated at the [facility]. This test has not been FDA [...] Auto (Urine sed) [#/Area] 1-2 [HPF] 0-4 [facility] Automated leukocytes count i n urine sediment (number/area)Ordered By: Sydney Erickson on 12-07-2021 WBC Auto (Urine sed) [#/Area] None seen [HPF] 0-4 [facility] Basophils Auto (Bld) [#/Vol] Ordered By: Sydney Erickson on 12-07-2021 Basophils (Bld) [#/Vol] 0.0 10*3/uL 0.0-0.2 [facility] Basophils/100 WBC Auto (Bld) Ordered By: Sydney Erickson on 12-07-2021 Basophils/100 WBC (Bld) 0.9 % . [facility] Bilirubin Test strip Ql (U)O rdered By: Sydney Erickson on 12-07-2021 Bilirubin Ql (U) Negative Negative [facility] Blood hemoglobin measurement (mass/volume)Ordered By: Sydney Erickson on 12-07-2021 Hemoglobin (Bld) [Mass/Vol] 13.1 g/dL 11.8-15.4 [facility] Blood leukocytes automated c ount (number/volume)Ordered By: Sydney Erickson on 12-07-2021 WBC (Bld) [#/Vol] 3.8 10*3/uL 4.5-11.[address] [facility] biopsyOrdered By: Sydney Erickson on 12-07-2021 CT biopsy 241 umol/L 0-285 [facility] Comment on above: Published reference interval for apparently healthy subjects between age 20 and 60 is 205 - 285 umol/L and in a poorly controlled diabetic population is 228 - 563 umol/L with a mean of 396 umol/L. Performed at: [facility] [id number] Pasting Machine Operator: Fortunato Garcia PhD, Phone: [phone] Color Auto (U)Ordered By: Xuan Erickson on 12-07-2021 Color (U) Yellow Yellow [facility] Creatinine and Glomerular fi ltration rate.predicted panel (S/P/Bld)Ordered By: Sydney Erickson on 12-07-2021 Creatinine [Mass/Vol] 0.86 mg/dL 0.44-1.03 [facility] Eosinophils Auto (Bld) [#/Vo l]Ordered By: Sydney Erickson on 12-07-2021 Eosinophils (Bld) [#/Vol] 0.1 10*3/uL 0.0-0.45 [facility] Eosinophils/100 WBC Auto (Bl d)Ordered By: Sydney Erickson on 12-07-2021 Eosinophils/100 WBC (Bld) 2.4 % . [facility] Erythrocyte distribution wid th Auto (RBC) [Ratio]Ordered By: Sydney Erickson on 12-07-2021 Erythrocyte distribution width (RBC) [Ratio] 12.5 % 11.9-15.3 [facility] Estimated glomerular filtrat ion rate (GFR) non- AmericanOrdered By: Sydney Erickson on 12-07-2021 GFR/1.73 sq M.predicted among non-blacks MDRD (S/P/Bld) [Vol rate/Area] > 60 mL/Min [facility] Hematocrit Auto (Bld) [Volum e fraction]Ordered By: Sydney Erickson on 12-07-2021 Hematocrit (Bld) [Volume fraction] 39.0 % 34.0-46.4 [facility] Ketones Auto test strip (U) [Mass/Vol]Ordered By: Sydney Erickson on 12-07-2021 Ketones (U) [Mass/Vol] Negative Negative Fi [facility] - Hematology and Cell countsOrdered By: Sydney Erickson on 12-07-2021 Nucleated RBC/100 WBC (Bld) [Ratio] 0.0 % 0-0.5 [facility] - UrinalysisOrder ed By: Sydney Erickson on 12-07-2021 Hyaline casts LM Ql (Urine sed) None seen [LPF] 0-8 [facility] Lymphocytes Auto (Bld) [#/Vo l]Ordered By: Sydney Erickson on 12-07-2021 Lymphocytes (Bld) [#/Vol] 1.0 10*3/uL 1.00-4.8 [facility] Lymphocytes/100 WBC Auto (Bl d)Ordered By: Sydney Erickson on 12-07-2021 Lymphocytes/100 WBC (Bld) 26.7 % . [facility] MCH Auto (RBC) [Entitic mass ]Ordered By: Sydney Erickson on 12-07-2021 MCH (RBC) [Entitic mass] 29.7 pg 24.7-34.3 [facility] MCHC Auto (RBC) [Mass/Vol]Or dered By: Sydney Erickson on 12-07-2021 MCHC (RBC) [Mass/Vol] 33.5 g/dL 32.0-35.0 [facility] MCV Auto (RBC) [Entitic vol] Ordered By: Sydney Erickson on 12-07-2021 MCV (RBC) [Entitic vol] 88.7 fL 80-100 [facility] Monocytes Auto (Bld) [#/Vol] Ordered By: Sydney Erickson on 12-07-2021 Monocytes (Bld) [#/Vol] 0.4 10*3/uL 0.0-0.8 [facility] Monocytes/100 WBC Auto (Bld) Ordered By: Sydney Erickson on 12-07-2021 Monocytes/100 WBC (Bld) 11.1 % . [facility] Neutrophils Auto (Bld) [#/Vo l]Ordered By: Sydney Erickson on 12-07-2021 Neutrophils (Bld) [#/Vol] 2.2 10*3/uL 1.8-7.7 [facility] Neutrophils/100 WBC Auto (Bl d)Ordered By: Sydney Erickson on 12-07-2021 Neutrophils/100 WBC (Bld) 58.9 % . [facility] Nitrite Test strip Ql (U)Ord ered By: Sydney Erickson on 12-07-2021 Nitrite Ql (U) Negative Negative [facility] No Panel InformationOrdered By: Sydney Erickson on 12-07-2021 Estimated GFR () > 60 mL/Min [facility] Comment on above: GFR estimated refere nce range: According to KDOQI guidelines, <60 ml/min/1.73m2 is sufficient to diagnose a patient with chronic kidney disease. Pharmacy Creatinine Clearance (Chem N/A [facility] Platelet mean volume Auto (B ld) [Entitic vol]Ordered By: Sydney Erickson on 12-07-2021 Platelet mean volume (Bld) [Entitic vol] 8.2 fL 6.3-10.7 [facility] Platelets Auto (Bld) [#/Vol] Ordered By: Sydney Erickson on 12-07-2021 Platelets (Bld) [#/Vol] 274 10*3/uL 150-450 [facility] Protein Auto test strip (U) [Mass/Vol]Ordered By: Sydney Erickson on 12-07-2021 Protein (U) [Mass/Vol] Negative Negative [facility] RBC Auto (Bld) [#/Vol]Ordere d By: Sydney Erickson on 12-07-2021 RBC (Bld) [#/Vol] 4.40 10*6/uL 3.60-5.00 [facility] Serum or plasma calcium catalino urement (mass/volume)Ordered By: Sydney Erickson on 12-07-2021 Calcium [Mass/Vol] 9.3 mg/dL 8.2-10.[address] [facility] Serum or plasma chloride juan surement (moles/volume)Ordered By: Sydney Erickson on 12-07-2021 Chloride [Moles/Vol] 99 mmol/L 95-114 [facility] Serum or plasma glucose catalino urement (mass/volume)Ordered By: Sydney Erickson on 12-07-2021 Glucose [Mass/Vol] 94 mg/dL 70-[address] [facility] Comment on above: ADA recommended refe rence range Random Glucose Reference Range is dependent on time and content of last meal. Glucose of more than 200 mg/dL in a nonstressed, ambulatory subject supports the diagnosis of Diabetes Mellitus. Serum or plasma potassium me asurement (moles/volume)Ordered By: Sydney Erickson on 12-07-2021 Potassium [Moles/Vol] 4.4 mmol/L 3.5-5.1 [facility] Serum or plasma sodium measu rement (moles/volume)Ordered By: Sydney Erickson on 12-07-2021 Sodium [Moles/Vol] 139 mmol/L 136-[address] [facility] Serum or plasma total carbon dioxide measurement (moles/volume)Ordered By: Sydney Erickson on 12-07-2021 CO2 [Moles/Vol] 26.7 mmol/L 22.0-30.0 [facility] Serum or plasma urea nitroge n measurement (mass/volume)Ordered By: Sydney Erickson on 12-07-2021 Urea nitrogen [Mass/Vol] 14 mg/dL 9-23 [facility] Specific gravity Auto test s trip (U) [Rel density]Ordered By: Sydney Erickson on 12-07-2021 Specific gravity (U) [Rel density] 1.010 1.001-1.030 [facility] Squamous epithelial cells de tection in urine sediment by light microscopyOrdered By: Sydney Erickson on 12-07-2021 Epithelial cells.squamous LM Ql (Urine sed) None seen [HPF] 0-2 [facility] Urine bacteria detection by automated methodOrdered By: Sydney Erickson on 12-07-2021 Bacteria Auto Ql (U) None seen None Seen [facility] Urine clarity by refractomet ry automatedOrdered By: Sydney Erickson on 12-07-2021 Clarity Refractometry automated (U) Clear Clear [facility] Urine glucose measurement by automated test strip (mass/volume)Ordered By: Sydney Erickson on 12-07-2021 Glucose Auto test strip (U) [Mass/Vol] Normal mg/dL Normal [facility] Urine hemoglobin detection b y automated test stripOrdered By: Sydney Erickson on 12-07-2021 Hemoglobin Auto test strip Ql (U) Negative Negative [facility] Urine leukocyte esterase det ection by automated test stripOrdered By: Sydney Erickson on 12-07-2021 Leukocyte esterase Auto test strip Ql (U) 1+ Negative [facility] Urobilinogen Auto test strip (U) [Mass/Vol]Ordered By: Sydney Erickson on 12-07-2021 Urobilinogen (U) [Mass/Vol] Normal mg/dL Normal [facility] pH Auto test strip (U)Ordere d By: Sydney Erickson on 12-07-2021 pH (U) 7.5 [pH] 5.0-9.0 [facility] CBC AUTO DIFFon 09-01-2021 BASO # 0.0 103/ul Normal 0.0-0.1 [facility] Comment on above: Performed By: #### I NIKI DE LA TORRE #### [facility] [address] [place] [address] Dr. Ryann Pearce Basophils/100 WBC (Bld) 0.8 % Normal 0.2-2.0 [facility] Comment on above: Performed By: #### I WIL VITAD #### [facility] [address] [place] [address] Dr. Ryann Pearce EO # 0.2 103/ul Normal 0.0-0.7 [facility] Comment on above: Performed By: #### Mike DE LA TORRE VITAD #### [facility] [address] [place] [address] Dr. Ryann Pearce Eosinophils/100 WBC (Bld) 4.1 % Normal 0.9-7.0 [facility] Comment on above: Performed By: #### Mike DE LA TORRE VITAD #### [facility] [address] [place] [address] Dr. Ryann Pearce Erythrocyte distribution width (RBC) [Ratio] 12.5 % Normal 11.0-15.0 [facility] Comment on above: Performed By: #### Mike DE LA TORRE VITAD #### [facility] [address] [place] [address] Dr. Ryann Pearce Hematocrit (Bld) [Volume fraction] 37.6 % Normal 36.0-48.0 [facility] Comment on above: Performed By: #### Mike DE LA TORRE VITAD #### [facility] [address] [place] [address] Dr. Ryann Pearce Hemoglobin (Bld) [Mass/Vol] 12.3 g/dL Normal 12.0-16.0 [facility] Comment on above: Performed By: #### Mike DE LA TORRE VITAD #### [facility] [address] [place] [address] Dr. Ryann Pearce IG # 0.02 10e3/ul Normal 0.00-0.03 [facility] Comment on above: Performed By: #### Mike DE LA TORRE VITAD #### [facility] [address] [place] [address] Dr. Ryann Pearce IG % 0.5 % Normal 0.0-0.5 [facility] Comment on above: Performed By: #### I WIL, VITAD #### [facility] [address] [address] [address] Ryann Pearce LYMPH # 1.1 103/ul Critically low 1.2-3.8 [facility] Comment on above: Performed By: #### I WIL, VITAD #### [facility] [address] [address] [address] Ryann Pearce Lymphocytes/100 WBC (Bld) 29.0 % Normal 20.5-60.0 [facility] Comment on above: Performed By: #### I WIL, VITAD #### [facility] [address] [place] [address] Dr. Ryann Pearce MANUAL DIFF REQ NO Normal [facility] Comment on above: Performed By: #### I WIL, VITAD #### [facility] [address] [place] [address] Dr. Ryann Pearce MCH (RBC) [Entitic mass] 30.5 pg Normal 26.7-34.0 [facility] Comment on above: Performed By: #### I WIL, VITAD #### [facility] [address] [place] [address] Dr. Ryann Pearce MCHC (RBC) [Mass/Vol] 32.7 g/dL Normal 29.9-35.2 [facility] Comment on above: Performed By: #### I WIL, VITAD #### [facility] [address] [place] [address] Dr. Ryann Pearce MCV (RBC) [Entitic vol] 93.3 fL Normal 81.0-99.0 [facility] Comment on above: Performed By: #### I WIL, VITAD #### [facility] [address] [place] [address] Dr. Ryann Pearce MONO # 0.5 103/ul Normal 0.3-0.8 [facility] Comment on above: Performed By: #### I WIL, VITAD #### [facility] [address] [place] [address] Dr. Ryann Pearce Monocytes/100 WBC (Bld) 13.1 % Critically high 1.7-12.0 [facility] Comment on above: Performed By: #### I WIL, VITAD #### [facility] [address] [address] [address] Ryann Pearce NEUT # 2.0 103/ul Normal 1.4-6.5 [facility] Comment on above: Performed By: #### I WIL, VITAD #### [facility] [address] [place] [address] Dr. Ryann Pearce Neutrophils/100 WBC (Bld) 52.5 % Normal 43.0-75.0 [facility] Comment on above: Performed By: #### I WIL VITAD #### [facility] [address] [address] [address] Ryann Pearce Platelet mean volume (Bld) [Entitic vol] 9.0 fL Critically low 9.5-13.5 [facility] Comment on above: Performed By: #### Mike DE LA TORRE VITAD #### [facility] [address] [place] [address] Dr. Ryann Pearce PLT 229 103/ul Normal 150-450 [facility] Comment on above: Performed By: #### I WIL VITAD #### [facility] [address] [place] [address] Dr. Ryann Pearce RBC 4.03 106/ul Critically low 4.20-5.40 [facility] Comment on above: Performed By: #### I WIL, VITAD #### [facility] [address] [place] [address] Dr. Ryann Pearce WBC 3.9 103/ul Critically low 4.0-11.0 [facility] Comment on above: Performed By: #### I WIL VITAD #### [facility] [address] [place] [address] Dr. Ryann Pearce PROF 14(COMP METB)on 022 Albumin [Mass/Vol] 3.1 g/dL Critically low 3.5-5.0 [facility] Comment on above: Performed By: #### C MP #### [facility] [address] [place] [address] Dr. Ryann Pearce Albumin/Globulin [Mass ratio] 0.9 {ratio} Normal [facility] Comment on above: Performed By: #### C MP #### [facility] [address] [address] [address] Ryann Pearce ALP [Catalytic activity/Vol] 66 U/L Normal 38-126 [facility] Comment on above: Performed By: #### C MP #### [facility] [address] [address] [address] Ryann Pearce ALT [Catalytic activity/Vol] 28 U/L Normal 9-52 [facility] Comment on above: Performed By: #### C MP #### [facility] [address] [address] [address] Ryann Pearce Anion gap [Moles/Vol] 9.8 mmol/L Normal [facility] Comment on above: Performed By: #### C MP #### [facility] [address] [place] [address] Dr. Ryann Pearce AST [Catalytic activity/Vol] 22 U/L Normal 14-36 [facility] Comment on above: Performed By: #### C MP #### [facility] [address] [address] [address] Ryann Pearce Bilirubin [Mass/Vol] 0.5 mg/dL Normal 0.2-1.3 [facility] Comment on above: Performed By: #### C MP #### [facility] [address] [address] [address] Ryann Pearce Calcium [Mass/Vol] 8.5 mg/dL Normal 8.4-10.2 [facility] Comment on above: Performed By: #### C MP #### [facility] [address] [address] [address] Ryann Pearce Chloride [Moles/Vol] 102 mmol/L Normal 98-107 [facility] Comment on above: Performed By: #### C MP #### [facility] [address] [address] [address] Ryann Pearce CO2 [Moles/Vol] 31.7 mmol/L Critically high 22.0-30.0 [facility] Comment on above: Performed By: #### C MP #### [facility] [address] [address] [address] Ryann Pearce Creatinine [Mass/Vol] 0.91 mg/dL Normal 0.52-1.04 [facility] Comment on above: Performed By: #### C MP #### [facility] [address] [address] [address] Ryann Pearce EGFR-AF PUERTO RICAN >60 Normal >=60 [facility] Comment on above: Performed By: #### C MP #### [facility] [address] [address] [address] Ryann Pearce EGFR-NON AF PUERTO RICAN =60 Normal >=60 [facility] Comment on above: Performed By: #### C MP #### [facility] [address] [address] [address] Ryann Pearce Globulin (S) [Mass/Vol] 3.3 g/dL Normal [facility] Comment on above: Performed By: #### C MP #### [facility] [address] [address] [address] Ryann Pearce Glucose [Mass/Vol] 89 mg/dL Normal 74-106 [facility] Comment on above: Performed By: #### C MP #### [facility] [address] [place] [address] Dr. Ryann Pearce Potassium [Moles/Vol] 4.5 mmol/L Normal 3.4-5.0 [facility] Comment on above: Performed By: #### C MP #### [facility] [address] [address] [address] Ryann Pearce Protein [Mass/Vol] 6.4 g/dL Normal 6.1-8.2 [facility] Comment on above: Performed By: #### C MP #### [facility] [address] [place] [address] Dr. Ryann Pearce Sodium [Moles/Vol] 139 mmol/L Normal 137-145 [facility] Comment on above: Performed By: #### C MP #### [facility] [address] [address] [address] Ryann Pearce Urea nitrogen [Mass/Vol] 14.0 mg/dL Normal 7.0-17.0 [facility] Comment on above: Performed By: #### C MP #### [facility] [address] [address] [address] Ryann Pearce Urea nitrogen/Creatinine [Mass ratio] 15.4 mg/mg Normal [facility] Comment on above: Performed By: #### C MP #### [facility] [address] [address] [address] Ryann Pearce Vital Signs Date Time Vital Sign Value Performing Clinician Facility 02-28-2024 14:290400 Body height 167.6 cm Pacc 2 Work Phone: [facility] 02-28-2024 14:29-0400 Body mass index (BMI) [Ratio] 23.77 kg/m2 Pacc 2 Work Phone: [facility] 02-28-2024 14:29-0400 Body temperature 97.7 [degF] Pacc 2 Work Phone: [facility] 02-28-2024 14:290400 Body weight 66.8 kg Pacc 2 Work Phone: [facility] 02-28-2024 14:29-0400 Diastolic blood pressure 82 mm[Hg] Pacc 2 Work Phone: [facility] 02-28-2024 14:29-0400 Heart rate 120 /min Pacc 2 Work Phone: [facility] 02-28-2024 14:29-0400 Respiratory rate 18 /min Pacc 2 Work Phone: [facility] 02-28-2024 14:29-0400 SaO2% (BldA) [Mass fraction] 97 % Pacc 2 Work Phone: [facility] 02-28-2024 14:29-0400 Systolic blood pressure 140 mm[Hg] Pacc 2 Work Phone: [facility] 02-23-2024 14:03-0400 Body height 167.6 cm Funmilayo Odell MD Work Phone: [facility] 02-23-2024 14:03-0400 Body mass index (BMI) [Ratio] 23.08 kg/m2 Funmilayo Odell MD Work Phone: [facility] 02-23-2024 14:03-0400 Body temperature 97.5 [degF] Funmilayo Odell MD Work Phone: [facility] 02-23-2024 14:03-0400 Body weight 64.86 kg Funmilayo Odell MD Work Phone: [facility] Comment on above: per pt. 02-23-2024 14:03-0400 Diastolic blood pressure 83 mm[Hg] Funmilayo Odell MD Work Phone: [facility] 02-23-2024 14:03-0400 Heart rate 103 /min Funmilayo Odell MD Work Phone: [facility] 02-23-2024 14:03-0400 SaO2% (BldA) [Mass fraction] 94 % Funmilayo Odell MD Work Phone: [facility] 02-23-2024 14:03-0400 Systolic blood pressure 134 mm[Hg] Funmilayo Odell MD Work Phone: [facility] 11-03-2023 14:18-0400 Body temperature 97.11 [degF] Funmilayo Odell MD Work Phone: [facility] 11-03-2023 14:18-0400 Diastolic blood pressure 87 mm[Hg] Funmilayo Odell MD Work Phone: [facility] 11-03-2023 14:18-0400 Heart rate 85 /min Funmilayo Odell MD Work Phone: [facility] 11-03-2023 14:18-0400 SaO2% (BldA) [Mass fraction] 98 % Funmilayo Odell MD Work Phone: [facility] 11-03-2023 14:18-0400 Systolic blood pressure 179 mm[Hg] Funmilayo Odell MD Work Phone: [facility] 12-07-2022 10:00-0400 Body height 165.1 cm Ivette Taylor Other [facility] Other 12-07-2022 10:00-0400 Body mass index (BMI) [Ratio] 24.96 kg/m2 Ivette Taylor Other [facility] Other 12-07-2022 10:00-0400 Body weight 68.04 kg Ivette Taylor Other [facility] Other 10-27-2022 13:59-0400 Diastolic blood pressure 74 mm[Hg] Funmilayo Odell MD Work Phone: [facility] 10-27-2022 13:59-0400 Heart rate 98 /min Funmilayo Odell MD Work Phone: [facility] 10-27-2022 13:59-0400 SaO2% (BldA) [Mass fraction] 96 % Funmilayo Odell MD Work Phone: [facility] 10-27-2022 13:59-0400 Systolic blood pressure 137 mm[Hg] Funmilayo Odell MD Work Phone: [facility] 09-21-2022 11:31-0400 Diastolic blood pressure 90 mm[Hg] MD Gisella Porter Work Phone: [facility] 09-21-2022 11:31-0400 Heart rate 94 /min MD Gisella Porter Work Phone: [facility] 09-21-2022 11:31-0400 Respiratory rate 18 /min MD Gisella Porter Work Phone: [facility] 09-21-2022 11:31-0400 SaO2% (BldA) [Mass fraction] 98 % MD Gisella Porter Work Phone: [facility] 09-21-2022 11:31-0400 Systolic blood pressure 146 mm[Hg] MD Gisella Proter Work Phone: [facility] 09-21-2022 10:09-0400 Body height 167.64 cm MD Gisella Porter Work Phone: [facility] 09-21-2022 10:09-0400 Body temperature 98.7 [degF] MD Gisella Porter Work Phone: [facility] 09-21-2022 10:09-0400 Body weight 64.41 kg MD Gisella Porter Work Phone: [facility] 01-05-2022 14:45-0400 Body height 165.1 cm [employer] Other [facility] Other 01-05-2022 14:45-0400 Body mass index (BMI) [Ratio] 22.96 kg/m2 [employer] Other [facility] Other 01-05-2022 14:45-0400 Body weight 62.6 kg [employer] Other [facility] Other 12-20-2021 12:31-0400 Diastolic blood pressure 94 mm[Hg] MD Gisella Porter Work Phone: [facility] 12-20-2021 12:31-0400 Heart rate 78 /min MD Gisella Porter Work Phone: [facility] 12-20-2021 12:31-0400 Respiratory rate 16 /min MD Gisella Porter Work Phone: [facility] 12-20-2021 12:31-0400 SaO2% (BldA) [Mass fraction] 99 % MD Gisella Porter Work Phone: [facility] 12-20-2021 12:31-0400 Systolic blood pressure 172 mm[Hg] MD Gisella Porter Work Phone: [facility] 12-20-2021 09:35-0400 Body temperature 97.8 [degF] MD Gisella Porter Work Phone: [facility] 12-20-2021 09:35-0400 Inhaled oxygen flow rate 6 L/min MD Gisella Porter Work Phone: [facility] 12-20-2021 08:23-0400 Body height 167.64 cm MD Gisella Porter Work Phone: [facility] 12-20-2021 08:23-0400 Body mass index (BMI) [Ratio] 23.8 kg/m2 MD Gisella Porter Work Phone: [facility] 12-20-2021 08:23-0400 Body weight 67 kg MD Gisella Porter Work Phone: [facility] 11-10-2021 10:45-0400 Body height 165.1 cm [employer] Other [facility] Other 11-10-2021 10:45-0400 Body mass index (BMI) [Ratio] 23.13 kg/m2 Sydney Elmira II Other [facility] Other 11-10-2021 10:45-0400 Body weight 63.05 kg Sydney Darek II Other [facility] Other 04-20-2021 11:45-0400 Body height 165.1 cm Manoj Forbes Other [facility] Other 04-20-2021 11:45-0400 Body mass index (BMI) [Ratio] 23.13 kg/m2 Manoj Forbes Other [facility] Other 04-20-2021 11:45-0400 Body weight 63.05 kg Manoj Forbes Other [facility] Other 04-20-2021 11:45-0400 Diastolic blood pressure 106 mm[Hg] Manoj Forbes Other [facility] Other 04-20-2021 11:45-0400 Systolic blood pressure 155 mm[Hg] Manoj Forbes Other [facility] Other Encounters Encounter Date Encounter Type Care Provider Facility Start: 04-01-2024 End: 04-01-2024 Patient encounter procedure MD Gisella Porter Work Phone: [facility] [place] Work Phone: Start: 04-01-2024 End: 04-01-2024 ambulatory MD Gisella Porter Work Phone: [facility] Work Phone: Start: 03-19-2024 End: 03-19-2024 Evaluation and management of inpatient FUNMILAYO ODELL Facility:[facility] Start: 02-28-2024 End: 02-28-2024 Admission [...] Preprocedural examination done Pac 2 Work Phone: [facility] Work Phone: Start: 02-28-2024 End: 02-28-2024 ambulatory ZAIDA SORIANO Facility:[facility] Start: 02-28-2024 Encounter for other preprocedural examination FUNMILAYO ODELL [facility] Start: 02-23-2024 End: 02-23-2024 ambulatory MANOJ FORBES Facility:[facility] Start: 02-23-2024 End: 02-23-2024 Patient encounter procedure Funmilayo Odell MD Work Phone: [facility] Comment on above: Hemorrhoids, unspeci fied hemorrhoid type (Primary Dx) Start: 11-03-2023 End: 11-03-2023 ambulatory MANOJ FORBES Facility:[facility] Start: 11-03-2023 End: 11-03-2023 Patient encounter procedure Funmilayo Odell MD Work Phone: [facility] Surgery Comment on above: BRBPR (bright red bl ood per rectum) (Primary Dx); Hemorrhoids, unspecified hemorrhoid type; Pelvic floor dysfunction Start: 10-11-2023 Telephone encounter Funmilayo arizmendi MD Work Phone: [facility] Surgery Comment on above: Received Outside [facility] Records; Appointment Start: 04-10-2023 End: 04-10-2023 ambulatory Manoj Forbes Other [facility] Other Start: 04-10-2023 Telephone encounter Manoj MCNEIL [facility] Start: 01-04-2023 End: 01-04-2023 ambulatory Ivette Taylor Other [facility] Other Start: 01-04-2023 Office outpatient vi sit 15 minutes Ivette Taylor [facility] Start: 12-23-2022 End: 12-23-2022 ambulatory MD Gisella Porter Work Phone: [facility] Work Phone: Start: 12-23-2022 End: 12-23-2022 Patient encounter procedure MD Gisella Porter Work Phone: [facility] Start: 12-07-2022 Office outpatient ne w 30 minutes Ivette Taylor [facility] Start: 12-07-2022 End: 12-07-2022 ambulatory MD Gisella Porter Work Phone: [facility] Work Phone: Start: 12-07-2022 End: 12-07-2022 Patient encounter procedure MD Gisella Porter Work Phone: [facility] Start: 10-27-2022 End: 10-27-2022 Patient encounter procedure Funmilayo Odell MD Work Phone: [facility] Surgery Comment on above: Hemorrhoids, unspeci fied hemorrhoid type (Primary Dx) Start: 09-22-2022 End: 09-22-2022 ambulatory Manoj Forbes Other [facility] Other Start: 09-22-2022 Telephone encounter Man[facility] Start: 09-21-2022 End: 09-21-2022 Admission to same day surgery center MD Gisella Porter Work Phone: [facility] Work Phone: Start: 09-21-2022 End: 09-21-2022 ambulatory MD Gisella Porter Work Phone: [facility] Work Phone: Start: 08-23-2022 End: 08-24-[address] DOCTOR MAHARAJ Facility:[facility] Start: 08-04-2022 End: 08-04-2022 ambulatory Manoj Forbes Other [facility] Other Start: 08-04-2022 Telephone encounter Manoj [facility] Start: 07-06-2022 End: 07-07-[address] GISELLA PORTER . Facility:[facility] Start: 06-06-2022 End: 06-07-[address] GISELLA PORTER . Facility:[facility] Start: 05-11-2022 End: 05-12-[address] GISELLA PORTER . Facility:[facility] Start: 04-04-2022 End: 04-04-2022 ambulatory Manoj Forbes Other [facility] Other Start: 04-04-2022 Telephone encounter Man[facility] Start: 03-16-2022 End: 03-16-2022 Patient encounter procedure MD Gisella Porter Work Phone: [facility] Start: 02-23-2022 End: 02-23-2022 Discharged Recurring MD Gisella Porter Work Phone: [facility]Physical Therapy [facility] [place] Start: 02-21-2022 End: 02-22-[address] LITA HANSEN Facility: Start: 02-02-2022 (Post-Op) Post-Op Sydney Darek II [facility] Start: 02-02-2022 End: 02-02-2022 ambulatory Sydney Elmira II Other [facility] Other Start: 02-02-2022 End: 02-02-2022 Patient encounter procedure MD Gisella Porter Work Phone: [facility] Start: 01-05-2022 (Post-Op) Post-Op Sydney Elmira II [facility] Start: 01-05-2022 End: 01-05-2022 ambulatory Sydney Darek II Other [facility] Other Start: 12-20-2021 End: 12-20-2021 Admission to same day surgery center MD Gisella Porter Work Phone: [facility]gery [facility] [place] Start: 12-17-2021 End: 12-17-2021 Patient encounter procedure MD Gisella Porter Work Phone: [facility]-Pre-Surgical Testing Start: 12-10-2021 (Prolonged) Prolonge d Services Sydney Darek II [facility] Start: 12-10-2021 End: 12-10-2021 ambulatory Sydney Elmira II Other [facility] Other Start: 12-10-2021 Telephone encounter Sydney Darek II [facility] Start: 12-07-2021 End: 12-07-2021 Patient encounter procedure MD Gisella Porter Work Phone: [facility]Pre-Surgical Testing Start: 12-01-2021 End: 12-01-2021 ambulatory Sydney Andersenle II Other [facility] Other Start: 12-01-2021 Patient encounter procedure Sydney Erickson II [facility] Start: 11-18-2021 Encounter for preprocedural cardiovascular examination SYDNEY LEROYISLE [facility] Start: 11-12-2021 End: 11-13-2021 ambulatory SYDNEY LEROYISLE Facility:[facility] Start: 11-12-2021 End: 11-13-2021 Encounter for preprocedural cardiovascular examination SYDNEY ERICKSON Facility:[facility] Start: 11-10-2021 End: 11-10-2021 ambulatory Sydney Andersenle II Other [facility] Other Start: 11-10-2021 Office outpatient vi sit 40 minutes Sydney Darek II [facility] Start: 09-01-2021 End: 09-02-[address] DOCTOR MAHARAJ Facility:[facility] Start: 08-13-2021 End: 08-13-2021 ambulatory Sydney Leroyisle II Other [facility] Other Start: 08-13-2021 Office outpatient ne w 45 minutes Sydney Darek II [facility] Start: 04-20-2021 Patient encounter procedure Manoj Forbes [facility] Gastroenterology Procedures Date Procedure Procedure Detail [...] Start: 02-27-2027 Diabetes Screening Diabetes Screenin miguelito [facility] Start: 03-19-2024 End: 03-19-2024 Admission to same day surgery center 03/19/2024 7:30 AM EDT - 03/19/2024 8:40 AM EDT Surgery [facility] Surgery [address] [place] [address] [place] [address] [address] [place] [address] EXCISION RECTAL PROCIDENTIA W/ ANASTOMOSIS [facility] Surgery Comment on above: EXCISION [...] physician 03/19/2024 7:30 AM EDT Hospital Encounter [facility] Surgery [address] [place] [address] [place] [address] [place] [address] BRBPR (bright red blood per rectum) [K62.5] [facility] Surgery Comment on above: BRBPR (bright red bl ood per rectum) [K62.5] Start: 02-25-2024 Covid-19 Vaccine ( season) Covid-19 Vaccine () [facility] Start: 02-25-2024 Influenza vaccination C [facility] Start: 06-26-2023 Advance Directive Discussion Advance Directive Discussion [facility] Start: 06-26-2023 Behavioral Health Screening Behavioral Health Screening [facility] Start: 02-24-2023 Covid-19 Vaccine () Covid-19 Vaccine () [facility] Start: 02-24-2023 Influenza vaccination INFLUENZ A (Season Ended) [facility] Start: 09-21-2022 [facility] Start: 06-26-2022 ADVANCE DIRECTIVE DISCUSSION ADVANCE DIRECTIVE DISCUSSION [facility] Start: 06-26-2022 DEPRESSION ASSESSMENT DEPRESSION ASS ESSMENT [facility] Start: 12-20-2021 [facility] Work Phone: Start: 12-20-2021 [facility] Work Phone: Start: 06-16-2021 COVID-19 VACCINE (4 - Booster for Moderna series) COVID-19 VACCINE (4 - Booster for Moderna series) [facility] Start: 2010 BONE DENSITY BONE DENSITY [facility] Start: 2010 PNEUMOCOCCAL: 65+ (1 - PCV) PNEUMOCOCCAL: 65+ (1 - PCV) [facility] Start: 2010 Screening for osteoporosis Bone Density Screening [facility] Start: 2005 RSV Vaccine (1 - 1-d ose 60+ series) RSV Vaccine (1 - 1-dose 60+ series) [facility] Start: 1995 SHINGRIX VACCINE (1 of 2) SHINGRIX VACCINE (1 of 2) [facility] Start: 1990 DIABETES SCREEN 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 Disease Visit Annual PCP Team Chronic Disease Visit [facility] Start: 1963 Anxiety Screening Anxiety Screening [facility] Start: 1963 Depression Screening Depression Scre ening [facility] Start: 1963 [facility] Start: 1963 Hepatitis C screening Hepatitis C Sc [facility] ECG COMPLETE ECG COMPLETE ECG Routine Preoperative examination Tachycardia 02/28/2024 1:49 PM EDT [facility] Work Phone: Patient Education Hemorrhoids (DC) [facility] Work Phone: [facility] Immunizations Immunization Date Immunization Notes Care Provider Fa cility 04-16-2021 COVID-19 mRNA-1273 (Moderna) MD Gisella Porter Work Phone: [facility] 09-01-2020 COVID-19 mRNA-1273 (Moderna) MD Gisella Porter Work Phone: [facility] 08-03-2020 COVID-19 mRNA-1273 (Moderna) MD Gisella Porter Work Phone: [facility] 04-02-2020 influenza virus vaccine, unspecified formulation Funmilayo Odell MD Work Phone: [facility] Payers Date Payer Category Payer Self-pay [id number] 2022 Private Health Insurance [facility] AARP SUPPLEMENT [id number] 2022-Present [phone] [address] [place] [address] Indemni [id number] 2010 Medicare MEDICARE MEDICAR E A AND B [id number] 2010-Present [phone] [place] [address] Medicare [id number] 1959 Medicare [id number] 1959 Unknown [id number] 1945 Unknown [id number] 1945 Unknown [id number] 1945 Unknown [id number] 1945 Unknown [id number] 1945 Unknown [id number] 1945 Unknown [id number] .593 1945 Unknown [id number] Unknown [id number] Social History Date Type Detail Facility Unknown if ever smoked [facility] Other Start: 10-27-2022 End: 02-28-2024 Sex Assigned At [facility] Other Start: 12-20-2021 End: 09-21-2022 Tobacco smoking status NHIS Never smoked tobacco (finding) [facility] Start: 1945 Sex Assigned At Female [facility] Start: 10-27-2022 Tobacco use and exposure Smokeless tobacco non-user [facility] Start: 10-27-2022 End: 02-28-2024 Alcohol intake Lifetime non-drinker (finding) [facility] Start: 1945 Sex Assigned At Not on file [facility] Start: 10-27-2022 End: 02-28-2024 History of Social function [facility] National Score (1-10 0), lower number is lower risk 53 [facility] Start: 02-27-2024 Gender identity Identifies as female gender (finding) [facility] Start: 02-27-2024 Sexual orientation Heterosexual (finding) [facility] Medical Equipment Procedure Code Equipment Code Equipment Origin al Text Equipment Identifier Dates Arthroplasty, knee, total, minimally invasive Orthopaedic cement, non-medicated [id number] FDA Start: 12-20-2021 Arthroplasty, knee, total, minimally invasive Uncoated knee femur prosthesis [id number] FDA Start: 12-20-2021 Arthroplasty, knee, total, minimally invasive Tibial insert ()[id number] FDA Start: 12-20-2021 Arthroplasty, knee, total, minimally invasive Uncoated knee tibia prosthesis, metallic ()[id number] FDA Start: 12-20-2021 Arthroplasty, knee, total, minimally invasive Polyethylene patella prosthesis ()[id number] FDA Start: 12-20-2021 Goals Date Patient Goal Desired Activity /State Clinical Notes 04-20-2021 to 03-19-2024 Zaida Soriano PA-C - 02/28/2024 2:26 PM EDTAZaida flores PA-C - 02/28/2024 2:26 PM EDTPatient Funmilayo Hobbs MD - 02/23/2024 2:40 PM Funmilayo Gallegos MD - 11/03/2023 2:40 PM EDT Note Date & Type Note Facility 03-19-2024 Note HNO ID: [id number] Author: JULIANA BENITES APRN.SURVEY RESEARCH PROFESSOR Service: Anesthesiology Author Type: Nurse Oceanology Teacher Type: Anesthesia Procedure Notes Filed: 03/19/2024 08:01 Note Text: ANESTHESIOLOGY PROCEDURE NOTE Airway General Information Procedure Start Time/Medication Administration: 03/19/2024 7:43 AM Procedure End Time: 03/19/2024 7:04 AM Patient location during procedure: OR Staffing SURVEY RESEARCH PROFESSOR: Juliana Benites APRN.SURVEY RESEARCH PROFESSOR Performed by: SURVEY RESEARCH PROFESSOR Indications and Patient Condition Indications for airway [...] 1 Airway not difficult SIGNATURE: Juliana Benites APRN.SURVEY RESEARCH PROFESSOR PATIENT NAME: Billie Yeboah DATE: March 19, 2024 TIME: 8:01 AM CSN: [id number] [facility] 02-28-2024 History and physical note [...] has never had a prior EKG at [facility] before, but has at either [facility] or [facility]. Faxing for records for comparison. 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 On daily Etodolac and has Tramadol for [...] 35 kg/m^2 Non-male patient STOP-Bang Score: 1 [id number] Score: [id number] Score: 0 ANESTHESIA FINDINGS: Intubation History: No [...] mg tablet ECG COMPLETE Faxed release to [facility] 02/28/2024 for Last EKG, need [...] fevers. Neuro: No history of TIA's, stroke, INDUSTRIAL GARAGE SERVICER tumor, impaired sensorium, hemiplegia, paraplegia or quadraplegia. [...] ALLERGIES Allergen Reactions Ciprofloxacin Rash, Unknown Nitrofurantoin Hoke* Other: See Comments, GI Upset Sulfamethoxazole-Tr* Other: [...] DATE: 02/28/2024 TIME: 2:26 PM PAGER/CONTACT #: [facility] 02-28-2024 History and physical note Images from the original note were not included. [facility] HISTORY AND PHYSICAL EXAMINATION SERVICE DATE: 02/28/2024 SERVICE TIME: 2:26 PM PRIMARY CARE PHYSICIAN: Gisella oPrter MD Assessment 1. Preoperative examination Scheduled for surgery 03/19/2024 2. BRBPR (bright red blood per rectum) 3. Rectal prolapse See HPI, having surgery 4. Tachycardia HR averaging around 118-120 during our visit. Patient denies any cardiac symptoms. No palpitations or CP. EKG today shows sinus tachycardia with HR 113 bpm, also shows possible anterolateral infarct. Patient has never had a prior EKG at [facility] before, but has at either [facility] or [facility]. Faxing for records for comparison. 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 On daily Etodolac and has Tramadol for [...] 35 kg/m^2 Non-male patient STOP-Bang Score: 1 [id number] Score: [id number] Score: 0 ANESTHESIA FINDINGS: Intubation History: No [...] mg tablet ECG COMPLETE Faxed release to [facility] 02/28/2024 for Last EKG, need [...] fevers. Neuro: No history of TIA's, stroke, INDUSTRIAL GARAGE SERVICER tumor, impaired sensorium, hemiplegia, paraplegia or quadraplegia. [...] ALLERGIES Allergen Reactions Ciprofloxacin Rash, Unknown Nitrofurantoin Hoke* Other: See Comments, GI Upset Sulfamethoxazole-Tr* Other: [...] PM PAGER/CONTACT #: documented in this encounter [facility] 02-27-2024 Instructions Zaida Soriano PA-C - 02/27/2024 12:07 PM EDT Images from the original note were not included. [facility] PATIENT PREOPERATIVE INSTRUCTIONS Testing that needs completed prior to surgery: - Lab work ordered today, recommend completing today at Outpatient Lab Funmilayo Odell MD has scheduled you for your procedure at this surgery center: [facility]: [phone] --[address] [place] [address]. Please enter through the entrance closest to [...] Procedures: - YOU MUST HAVE A RESPONSIBLE MORGUE TECHNICIAN TAKE YOU HOME. A PROFESSOR OF SURGERY OR RIDES ATTENDANT CANNOT BE MADE A RESPONSIBLE MORGUE TECHNICIAN. - We recommend that a responsible person [...] Advance Directive, please fax a copy to [phone] or email to for it to be [...] Zaida Soriano PA-C documented in this encounter [facility] 02-23-2024 History of Presen t illness [...] ALLERGIES Allergen Reactions Ciprofloxacin Rash, Unknown Nitrofurantoin Hoke* Other: See Comments, GI Upset Sulfamethoxazole-Tr* Other: [...] exam reveals no gross blood or masses Cash Control Specialist present: Yes, Sarah Z Anoscopy: The patient [...] MD Colorectal Surgery documented in this encounter [facility] 02-23-2024 Note HNO ID: [id number] Author: FUNMILAYO ODELL MD Service: ? Author [...] ALLERGIES Allergen Reactions Ciprofloxacin Rash, Unknown Nitrofurantoin Hoke* Other: See Comments, GI Upset Sulfamethoxazole-Tr* Other: [...] exam reveals no gross blood or masses Cash Control Specialist present: Yes, Sarah Z Anoscopy: The patient [...] treatment plan: nyla Odell MD Colorectal Surgery [facility] 11-03-2023 History of Presen t illness Narrative COLORECTAL SURGERY November 03, 2023 Billie Yeboah 78 year old This consult was requested by Dr. Forbes and my final recommendations will be communicated to the requesting health care provider by way of the shared medical record for internal providers or letter via the [employer] for external providers. Chief Complaint: [...] ALLERGIES Allergen Reactions Ciprofloxacin Rash, Unknown Nitrofurantoin Hoke* Other: See Comments, GI Upset Sulfamethoxazole-Tr* Other: [...] has a weak squeeze and discoordinated push Cash Control Specialist present: Yes, Sarah Z Anoscopy: The patient [...] MD Colorectal Surgery documented in this encounter [facility] 11-03-2023 Note HNO ID: [id number] Author: FUNMILAYO ODELL MD Service: ? Author Type: Physician Type: Progress Notes Filed: 11/03/2023 14:59 Note Text: COLORECTAL SURGERY November 03, 2023 Billie Yeboah 78 year old This consult was requested by Dr. Forbes and my final recommendations will be communicated to the requesting health care provider by way of the shared medical record for internal providers or letter via the [employer] for external providers. Chief Complaint: [...] ALLERGIES Allergen Reactions Ciprofloxacin Rash, Unknown Nitrofurantoin Hoke* Other: See Comments, GI Upset Sulfamethoxazole-Tr* Other: [...] has a weak squeeze and discoordinated push Cash Control Specialist present: Yes, Sarah Z Anoscopy: The patient [...] treatment plan: nyla Odell MD Colorectal Surgery [facility] 11-03-2023 Nurse Note What is the reason for your visit today? BRBPR, hemorrhoids Who is your referring physician? Dr. Forbes Are you having poor oral intake? NO Have you had unintentional weight loss of 15 lbs/7 Kg in the last 3-6 months? NO Bowels: regular, bleeding with and without BMs, discharge, brown/green in color Wound: Temperature: No Drains: No [facility] 11-03-2023 Nurse Note What is the [...] No Drains: No documented in this encounter [facility] 10-11-2023 Miscellaneous Notes Appointment with Dr. Odell is scheduled. Referral Scanned in for Dr. Odell, called pt and LVM, awaiting call back to schedule. documented in this encounter [facility] 04-10-2023 Evaluation note Encounter Date Diagnosis Assessment Notes Mar, IBS (irritable bowel syndrome) (ICD-10 - K58.9) [facility] 07-12-2023 Evaluation note* Encounter Date Diagnosis Assessment Notes Treatment Notes Treatment Clinical Notes Dec, Primary osteoarthrit is of first carpometacarpal joint of left hand (ICD-10 - M18.12) Progress as tolerated Discussed DIP fusions Dec, Trigger ring finger of left hand (ICD-10 - M65.342) Dec, Left hand pain (ICD- 10 - M79.642) [facility] Other 06-14-2023 Evaluation note* Encounter Date Diagnosis [...] Left hand pain (ICD- 10 - M79.642) [facility] Other 05-04-2023 History of Present illness Narrative* Funmilayo Odell MD - 10/27/2022 2:00 PM EDT COLORECTAL SURGERY October 27, 2022 Billie Yeboah 77 year old This consult was requested by Dr. Manoj Forbes and my final recommendations will be communicated to the requesting health care provider by way of the shared medical record for internal providers or letter via the [employer] for external providers. Chief Complaint: [...] exam reveals no gross blood or masses Cash Control Specialist present: Yes, Maribell Joiner Anoscopy: The patient [...] Odell MD [facility]* Maribell Joiner RN - [...] Temperature: No Drains: No [facility]* Encounter Date Diagnosis Assessment Notes Treatment Notes Treatment Clinical Notes Aug, Hemorrhoids (ICD-10 - K64.9) [facility]* Encounter Date Diagnosis Assessment Notes Treatment Notes Treatment Clinical Notes Jul, IBS (irritable bowel syndrome) (ICD-10 - K58.9) [facility] Other 01-12-2023 NotePROCEDURE: XR HAND RT MIN [...] Electronically authenticated by: VIDYA CHAUDHARY Date: 2022-07-07 12:06[facility]10-10-2022 Evaluation note* Encounter Date Diagnosis Assessment Notes Treatment Notes Treatment Clinical Notes Mar, IBS (irritable bowel syndrome) (ICD-10 - K58.9) [facility] 08-10-2022 Evaluation note* Encounter Date Diagnosis Assessment Notes Treatment Notes Treatment Clinical Notes Jan, Primary osteoarthritis of right knee (ICD-10 - M17.11) Jan, History of total right knee replacement (ICD-10 - Z96.651) Jan, Age-related osteoporosis without current pathological fracture (ICD-10 - M81.0) Jan, Other fci (current) drug therapy (ICD-10 - Z79.899) Jan, Trochanteric bursitis of right hip (ICD-10 - M70.61) Jan, Other [facility] R TKA at [facility] on 12/20/2021 Overall I think she is doing very well. The stitch that popped up in the proximal aspect the incision was removed. Patient tolerated this well. Patient may continue activities as tolerated. Recommended continuing physical therapy not only for her knee but also for greater trochanteric bursitis. Continue taking orob-pkl-rizemxo anti-inflammatories as needed for assistance with swelling and pain associated with the operative extremity. I have also prescribed her some iron and vitamin C in the event that she did have some low postoperative hemoglobin. Follow-up in 6 weeks for repeat examination and long standing x-rays. [facility] Other 07-13-2022 Evaluation note* Encounter Date Diagnosis Assessment Notes Treatment Notes Treatment Clinical Notes Dec, Primary osteoarthritis of right knee (ICD-10 - M17.11) Dec, History of total right knee replacement (ICD-10 - Z96.651) Dec, Age-related osteoporosis without current pathological fracture (ICD-10 - M81.0) Dec, Other rodent exterminator (current) drug therapy (ICD-10 - Z79.899) Dec, Other [facility] R TKA at [facility] on 12/20/2021 Doing well. Zipline was [...] 3 view x-rays of the right knee. [facility] Other 06-17-2022 Evaluation note* Encounter Date Diagnosis [...] patient could proceed with surgery safely. The airline managerial supervisor was vital for surgery timing and scheduling [...] plans. Prolonged services time spent: 32 minutes [facility] Other 06-17-2022 Evaluation note* Encounter Date Diagnosis Assessment Notes Treatment Notes Treatment Clinical Notes Nov, Primary osteoarthritis of right knee (ICD-10 - M17.11) [facility] Other 06-08-2022 Evaluation note* Encounter Date Diagnosis Assessment Notes Treatment Notes Treatment Clinical Notes Nov, Age-related osteoporosis without current pathological fracture (ICD-10 - M81.0) Nov, Primary osteoarthritis of right knee (ICD-10 - M17.11) Nov, Other rodent exterminator (current) drug therapy (ICD-10 - Z79.899) Nov, [...] replaced previously. 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 All questions were answered after [...] elected to proceed with the above surgery. [facility] Other 05-18-2022 Evaluation note* Encounter Date Diagnosis [...] or absent clearances could delay their surgery. [facility] Other 02-18-2022 Evaluation note* Encounter Date Diagnosis [...] injection well. 6. Follow up 3 months [facility] Other 10-26-2021 Evaluation note* Encounter Date Diagnosis Assessment Notes Treatment Notes Treatment Clinical Notes Mar, IBS (irritable bowel syndrome) (ICD-10 - K58.9) Colonoscopy Follow up in 1 year Mar, Special screening for malignant neoplasms, colon (ICD-10 - Z12.11) [facility] Other Evaluation noteNo assessment information available [facility] Work Phone: Evaluation note* Diagnosis Hemorrhoids, unspecified hemorrhoid type- Primary [facility] Diagnosis BRBPR (bright red blood per rectum)- Primary Hemorrhage of rectum and anus Hemorrhoids, unspecified hemorrhoid type Pelvic floor dysfunction Pelvic muscle wasting [facility] Diagnosis Hemorrhoids, unspecified hemorrhoid type- Primary [facility] Diagnosis Preoperative examination- Primary Preoperative [...] anus Rectal prolapse [facility] Author Manoj Forbes [facility] September 21, 2022 10:51am Note Date/Time September 21, 2022 10: 51am [facility] [address] [place] [address] Gastroenterology H&P Signed Patient: Billie Yeboah MR#: [id number] : 1945 Acct:[id number] Age/Sex: 77 / F Adm Date: 3 Loc: Room: Type: [facility] Attending Dr: Manoj Forbes MD Copies to: [...] signed by Manoj Forbes MD> 09/21/22 1051 [facility] Work Phone: History general Narrative - Reported* Type Description Date Surgical History THYROID Surgical History LEFT KNEE REPLAEMENT Surgical History HYSTERECTOMY Surgical History BILATERAL FOOT SURGERY Surgical History HIP REPLACEMENT RIGHT Hospitalization History Stomach pains 1 night [facility] Other History general Narrative - Reported* Type Description Date Medical History Arthritis Medical History IBS Medical History thyroid disease Medical History high cholesterol Surgical History THYROID Surgical History LEFT KNEE REPLAEMENT Surgical History HYSTERECTOMY Surgical History BILATERAL FOOT SURGERY Surgical History HIP REPLACEMENT RIGHT Hospitalization History Stomach pains 1 night [facility] Other Hospital Discharge instructions Additional Instructions DISCHARGE [...] - Do NOT operate machinery such as [employer], [place], snow blowers, sewing machines, etc. for 24 [...] problems. -Follow up with PCP. -Office number [phone].[facility] Work Phone: reason for referral (narrative)* Reason *FU 09/30 Consult for hemorrhoids. Referral faxed to Dr. Odell Diagnosis 1 Hemorrhoids (K64.9) Referral Organization [facility] Gastroenterolo gy Referring Provider First Name Manoj Referring Provider Last Name Leidy Referring Provider Specialty Gastroenter ology Referred Organization [facility] Referred Provider FUNMILAYO ODELL Ref[address] Address [address] [place], [place],[address] Referred Provider Specialty Colorectal S urgery Referral Priority Routine General Notes GegeLelandt 0 09/23/2022 10:05:39 AM > Referral faxed by office. [facility] Other Reiaar for referral (narrative)* Outpatient Procedure (Routine) - New Request Specialty Diagnoses / Procedures Referred By Charis sutton Ref[facility] Diagnoses Preoperative examination Tachycardia Procedures ECG COMPLETE ECG ROUTINE ECG W/LEAST 12 LDS W/I&R Zaida Soriano PA-C [address] [place] [address] [facility] [place] [address] [address] Referral ID Status Reason Start Date Expiration Date Visits Requested Visits Authorized [id number] New Request Auto-Generat ed Referral 02/28/2024 02/27/2025 1 1 [facility] Chief Complaint and Reason for Visit [...] HIGH COMPLEX 45 [place] [address] [address] [facility] [address] [place] [address] [facility] [address] [address] Referral ID Status Reason Start Date Expiration Date Visits Requested Visits Authorized [id number] Pending Review PCP Requested Referral Auto-Generate d [...] Active Manoj Forbes MD Attending Provider Active Lead Man Over All Dies In Pattern Shop Relationship Specialty Start Date End Date Daryl Austin [address] [place] [address] PCP - General 10/11/00 Team Status: Inactive Member Role Status Dates Gisella Porter MD Primary Care Provider Active Ivette Taylor MD Attending Provider Active Lead Man Over All [employer] In Pattern Shop Relationship Specialty Start Date End Date Daryl Austin [address] [place] [address] PCP - General 10/11/00 Lead Man Over All Dies In Pattern [employer] Relationship Specialty Start Date End Date Daryl Austin [address] [place] [address] PCP - General 10/11/00 Lead Man Over All Dies In Pattern Shop Relationship Specialty Start Date End Date LouisaDaryl avelar [address] [place] [address] PCP - General 10/11/00 Lead Man Over All Dies In Pattern Shop Relationship Specialty Start Date End Date Daryl Austin [address] [place] [address] PCP - General 10/11/00 02/28/24 Gisella Porter MD [address] [facility] [place] [address] PCP - General Family Medicine 02/29/24 Team Status: Inactive Member Role Status Dates Gisella Porter MD Primary Care Provider Active Start: April 01, 2024 End: April 01, 2024 Manoj oFrbes MD Attending Provider Active S tart: April 01, 2024 End: April 01, 2024 INFORMATION SOURCE (unrecogn ized section and content) DATE CREATED AUTHOR 08/30/2022 [facility] DATE CREATED AUTHOR AUTHOR'S ORGANIZ ATION 02/25/2024 [facility] DATE CREATED AUTHOR AUTHOR'S ORGANIZ ATION 03/21/2024 [facility] DATE CREATED AUTHOR AUTHOR'S ORGANIZ ATION 04/18/2024 [facility] [address] [facility] Source Comments (unrecognize d section and content) In the event this informatio n is protected by the Federal Confidentiality of Alcohol and Drug Abuse Patient Records regulations: The Federal rules restrict any use of the information to criminally investigate or prosecute any alcohol or drug abuse patient.[facility] the event this information is protected by the Federal Confidentiality of Alcohol and Drug Abuse Patient Records regulations: The Federal rules restrict any use of the information to criminally investigate or prosecute any alcohol or drug abuse patient.[facility] the event this information is protected by the Federal Confidentiality of Alcohol and Drug Abuse Patient Records regulations: The Federal rules restrict any use of the information to criminally investigate or prosecute any alcohol or drug abuse patient.[facility] the event this information is protected by the Federal Confidentiality of Alcohol and Drug Abuse Patient Records regulations: The Federal rules restrict any use of the information to criminally investigate or prosecute any alcohol or drug abuse patient.[facility] the event this information is protected by the Federal Confidentiality of Alcohol and Drug Abuse Patient Records regulations: The Federal rules restrict any use of the information to criminally investigate or prosecute any alcohol or drug abuse patient.[facility] Goals (unrecognized section and content) Goals [...] BE BASED ON THE PRIMARY CLINICAL RECORDS. [facility] [employer] [facility]. provides no warranty or guarantee of the accuracy or completeness of information in this document.
[2024-06-10 12:30] LABS: Estimated Average Glucose 108 mg/dL; Glycohemoglobin A1C 5.4 % (4.5-6.2)
[2024-06-10 12:45] LABS: Basophils Absolute Auto 0.1 10^3/uL (0.0-0.1); Basophils Percent Auto 0.8 % (0.2-2.0); Eosinophils Absolute Auto 0.3 10^3/uL (0.0-0.7); Eosinophils Percent Auto 4.2 % (0.9-7.0); Hematocrit 40.8 % (36.0-48.0); Hemoglobin 13.2 g/dL (12.0-16.0); Immature Granulocytes Abs Auto 0.01 10^3/uL (0.00-0.03); Immature Granulocytes Pct Auto 0.2 % (0.0-0.5); Lymphocytes Percent Auto 16.6 % (20.5-60.0); Mean Corpuscular HGB Conc 32.4 g/dL (29.9-35.2); Mean Corpuscular Hemoglobin 28.8 pg (26.7-34.0); Mean Corpuscular Volume 88.9 fL (81.0-99.0); Mean Platelet Volume 9.4 fL (9.5-13.5); Monocytes Absolute Auto 0.7 10^3/uL (0.3-0.8); Monocytes Percent Auto 12.1 % (1.7-12.0); Neutrophils Absolute Auto 4.1 10^3/uL (1.4-6.5); Neutrophils Percent Auto 66.1 % (43.0-75.0); Platelet Count 347 10^3/uL (150-450); Red Blood Count 4.59 10^6/uL (4.20-5.40); Red Cell Distribution Width 12.2 % (11.0-15.0); White Blood Count 6.1 10^3/uL (4.0-11.0)
[2024-06-10 13:02] LABS: Alanine Aminotransferase 13 U/L (14-59); Albumin Globulin Ratio 0.6; Albumin Level 2.9 g/dL (3.4-5.0); Alkaline Phosphatase 84 U/L (46-116); Anion Gap 11.1; Aspartate Amino Transferase 13 U/L (15-37); BUN Creatinine Ratio 12.4; Bilirubin Total 0.4 mg/dL (0.2-1.0); Carbon Dioxide 31.8 mmol/L (21.0-32.0); Chloride 99 mmol/L (98-107); Chol HDL Ratio 2.7; Cholesterol 173 mg/dL (<=200); Estimated GFR (African America >60 (>=60 mL/min/1.73m^2); Estimated GFR (Non-African Ame 51 (>=60 mL/min/1.73m^2); Free T3 1.62 pg/mL (2.18-3.98); Globulin 4.7 g/dL; Glucose 111 mg/dL (74-106); HDL Cholesterol 64 mg/dL (40-60); Potassium 3.9 mmol/L (3.5-5.1); Sodium 138 mmol/L (136-145); Thyroid Stimulating Hormone 1.443 uIU/mL (0.358-3.740); Total Protein 7.6 g/dL (6.4-8.2); Triglycerides 95 mg/dL (<=150)
== END 2024-06-10 11:44 | disposition home or self-care (01) ==
LOC: LAB 11:45
PROVIDERS: PCP Family Medicine; Visit Provider Family Medicine
DX: E07.9 Disorder of thyroid, unspecified (principal); D64.9 Anemia, unspecified; K58.9 Irritable bowel syndrome, unspecified; G47.00 Insomnia, unspecified; E78.5 Hyperlipidemia, unspecified; R73.09 Other abnormal glucose
CPT/HCPCS: 36415; 80053; 80061; 83036; 83540; 84436; 84443; 84481; 85025

== ENCOUNTER 2024-06-23 16:22 | Emergency (ER) | payer MEDICARE, SELFPAY ==
[2024-06-23 16:36] VITALS: BP 113/71; PULSE 121; TEMP 37; O2SAT 91; BMI 22.6
--- OUTSIDE RECORDS SUMMARY | 2024-06-23 16:42 | XMS_ITS | CCD ---
Author Organization [facility] Care Team Providers Care Communication Equipment Repairer Name Role Phone Manoj Forbes Unavailable Sydney Erickson II Unavailable [phone] MD Gisella Porter Primary Care Provider [phone] MD Sydney Erickson II Attending Provider [phone] MD Gisella Porter Primary Care Provider [phone] MD Sydney Erickson II Attending Provider [phone] NICKO, DR HOOVER Admitting Unavailable MISC, DR HOOVER Attending Unavailable HOY ., DR OBANDO Primary Care Unavailable MISC, DR HOOVER Consulting Unavailable HOY ., DR OBANDO Admitting Unavailable HOY ., DR OBANDO Attending Unavailable HOY ., DR OBANDO Primary Care Unavailable HOY ., DR OBANDO Consulting Unavailable [facility], DR VIDYA Strong Consulting Unavailable HOY ., DR OBANDO Admitting Unavailable HOY ., DR OBANDO Attending Unavailable HOY ., DR OBANDO Primary Care Unavailable HOY ., DR OBANDO Consulting Unavailable HOY ., DR OBANDO Admitting Unavailable HOY ., DR OBANDO Attending Unavailable HOY ., DR OBANDO Primary Care Unavailable HOY ., DR OBANDO Consulting Unavailable GOBLES, DR FUNMILAYO Ramirez Consulting Unavailable TYRONE, DR [...] Unavailable MD Gisella Porter Primary Care Provider [phone] MD Manoj Forbes Attending Provider [phone] ScrevenNito avelar Primary Care Provider UnavailMD Ivette Treadwell Attending Provider [phone] MD Gisella Porter Primary Care Provider [phone] MD Sydney Erickson II Attending Provider Ivette Taylor Unavailable Geovanna Nito Primary Care Provider UnavailNito Viera Primary Care Provider UnavailMANOJ Childress Referring Unavailable FUNMILAYO ODELL Attending Unavailable MANOJ FORBES Referring Unavailable FUNMILAYO ODELL Attending Unavailable Nito Austin Primary Care Provider UnavailGisella Tinajero MD Primary Care Provider [phone] FUNMILAYO ODELL Attending Unavailable FUNMILAYO ODELL Admitting Unavailable FUNMILAYO ODELL Referring Unavailable ZAIDA SORIANO Referring Unavailable MD Gisella Porter Primary Care Provider [phone] MD Manoj Forbes Attending Provider Manoj Forbes Attending Unavailable Gisella Porter Primary Care Unavailable Manoj Forbes Admitting Unavailable Manoj Forbes Attending Unavailable Gisella Porter Primary Care Unavailable Manoj Forbes Admitting Unavailable Allergies Allergy Classification Reported Allergen(s) Allergy Type Date of Onset Reaction(s) Facility (20 sources) Ciprofloxacin; Translations: [CIPROFLOXACIN] Drug Allergy 05-31-20 13 Rash, Unknown [facility] (20 sources) NITROFURANTOIN, MACROCRYSTALS / Nitrofurantoin, Monohydrate Drug Allergy 10-28-19 23 Other: See Comments, GI Upset [facility] (20 sources) Sulfamethoxazole / Trimethoprim Drug Allergy 05-31-20 13 Other: See Comments, Rash [facility] (3 sources) Ciprofloxacin; Translations: [Cipro] Drug Allergy 05-31-20 13 Unknown [facility] (3 sources) Sulfamethoxazole / Trimethoprim; Translations: [Bactrim] Drug Allergy 05-31-20 13 Unknown [facility] Repository (7 sources) Nitrofurantoin; Translations: [nitrofurantoin] Drug Allergy 04-29-20 21 Rash, Rash, vomiting,rash [facility] (7 sources) Sulfamethoxazole; Translations: [sulfamethoxazole] Drug Allergy 04-29-20 21 Rash, Rash, vomiting, rash [facility] (7 sources) Trimethoprim; Translations: [trimethoprim] Drug Allergy 04-29-20 21 Rash, Rash, vomiting, rash [facility] (1 source) Nitrofurantoin Drug Allergy 05-31-20 13 [facility] Repository (2 sources) Sulfamethoxazole / Trimethoprim; Translations: [SULFAMETHOXAZOLE-T RIMETHOPRIM] Drug Allergy 05-31-20 13 [place] Repository (2 sources) NITROFURANTOIN MONOHYD/M-CRYST; Translations: [NITROFURANTOIN MONOHYD/M-CRYST] Propensity to adverse reactions to drug (disorder) 10-28-19 23 [place] Repository (1 source) Ciprofloxacin Drug Allergy 06-21-20 24 [facility] Repository Medications Current Medications Medication Drug Class(es) [...] oral tablet (11 sources) Vitamin D Start: take 1 tablet by mouth once [...] daily. 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 [facility] Comment on above: Performed By: #### C RP, CBC, ESR #### [facility] [address] Automated basophil countOrde red By: Manoj Forbes on 04-01-2024 Basophils (Bld) [#/Vol] 0.0 10*3/uL Normal 0.0-0.2 [facility] Comment on above: Performed By: #### C RP, CBC, ESR #### [facility] [address] Automated blood monocyte cou ntOrdered By: Manoj Forbes on 04-01-2024 Monocytes (Bld) [#/Vol] 0.5 10*3/uL Normal 0.0-0.8 [facility] Comment on above: Performed By: #### C RP, CBC, ESR #### [address] Automated eosinophil %Ordere d By: Manoj Forbes on 04-01-2024 Eosinophils/100 WBC (Bld) 5.1 % Normal . [facility] Comment on above: Performed By: #### C RP, CBC, ESR #### [address] Automated eosinophil countOr dered By: Manoj Forbes on 04-01-2024 Eosinophils (Bld) [#/Vol] 0.3 10*3/uL Normal 0.0-0.45 [facility] Comment on above: Performed By: #### C RP, CBC, ESR #### [address] Automated monocyte %Ordered By: Manoj Forbes on 04-01-2024 Monocytes/100 WBC (Bld) 9.4 % Normal . [facility] Comment on above: Performed By: #### C RP, CBC, ESR #### [address] Automated neutrophil %Ordere d By: Manoj Forbes on 04-01-2024 Neutrophils/100 WBC (Bld) 68.0 % Normal . [facility] Comment on above: Performed By: #### C RP, CBC, ESR #### [address] C reactive protein [Mass/vol ume] in Serum or PlasmaOrdered By: Manoj Forbes on 04-01-2024 CRP [Mass/Vol] < 0.5 mg/dL 0.0-0.5 [facility] C-Reactive Proteinon 024 CRP [Mass/Vol] mg/L Normal 0.0-0.5 [facility] Comment on above: Result Comment: PERF ORMED BY: [place] [address] PATHOLOGIST SAP FUNCTIONAL ANALYST SE CHEATHAM M.D. Performed By: #### C RP, CBC, ESR #### [address] Calprotectin, Fecalon 2023 Calprotectin, Fecal 238 High 0-120 [facility] Comment on above: Result Comment: Conc entration Interpretation Follow-Up < 5 - 50 ug/g Normal None >50 -120 ug/g Borderline Re-evaluate in 4-6 weeks >120 ug/g Abnormal Repeat as clinically indicated Performed at: - [facility] [address] [id number] [address] Roller Operator: Nadeen Gant MD, Phone: [phone] PERFORMED BY: [place] [address] PATHOLOGIST SAP FUNCTIONAL ANALYST SE CHEATHAM M.D. Performed By: #### C ALPROTECT #### [facility] , #### IBD DIAG #### [address] Complete Blood Count Auto Di ffon 04-01-2024 Mean Corpuscular HGB Conc 34.3 g/dL Normal 32.0-35.0 [facility] Comment on above: Performed By: #### C RP, CBC, ESR #### [address] NRBC% 0.1 /100{WBC} Normal 0-0.5 [facility] Comment on above: Performed By: #### C RP, CBC, ESR #### [address] Erythrocyte Sedimentation Ra char 04-01-2024 ESR (Bld) [Velocity] 20 mm/h Normal 0-29 [facility] Comment on above: Result Comment: PERF ORMED BY: [place] [address] PATHOLOGIST SAP FUNCTIONAL ANALYST SE CHEATHAM M.D. Performed By: #### C RP, CBC, ESR #### [address] Erythrocyte distribution wid th [Ratio] by Automated countOrdered By: Manoj Forbes on 04-01-2024 Erythrocyte distribution width (RBC) [Ratio] 13.1 % Normal 11.9-15.3 [facility] Comment on above: Performed By: #### C RP, CBC, ESR #### [address] Erythrocyte sedimentation ra te by Photometric methodOrdered By: Manoj Forbes on 04-01-2024 ESR Photometric method (Bld) [Velocity] 20 mm/hr 0-29 [facility] Erythrocytes [#/volume] in B lood by Automated countOrdered By: Manoj Forbes on 04-01-2024 RBC (Bld) [#/Vol] 4.10 10*6/uL Normal 3.60-5.00 [facility] Comment on above: Performed By: #### C RP, CBC, ESR #### [address] Hematocrit [Volume Fraction] of Blood by Automated countOrdered By: Manoj Forbes on 04-01-2024 Hematocrit (Bld) [Volume fraction] 36.4 % Normal 34.0-46.4 [facility] Comment on above: Performed By: #### C RP, CBC, ESR #### [address] Hemoglobin [Mass/volume] in BloodOrdered By: Manoj Forbes on 04-01-2024 Hemoglobin (Bld) [Mass/Vol] 12.5 g/dL Normal 11.8-15.4 [facility] Comment on above: Performed By: #### C RP, CBC, ESR #### [address] IBD [facility] 024 IBD Comment Normal [facility] Comment on above: Result Comment: See report. Scanned copy available in EMR. PERFORMED BY: [place] [address] PATHOLOGIST SAP FUNCTIONAL ANALYST SE CHEATHAM M.D. Performed By: #### C ALPROTECT #### [facility] , #### IBD DIAG #### [address] Leukocytes [#/volume] correc jeanette for nucleated erythrocytes in Blood by Automated counOrdered By: Manoj Forbes on 04-01-2024 WBC corrected for nucl RBC Auto (Bld) [#/Vol] 5.7 10*3/uL 3.8-11.6 [facility] Leukocytes [#/volume] in Blo od by Automated countOrdered By: Manoj Forbes on 04-01-2024 WBC (Bld) [#/Vol] 5.7 10*3/uL Normal 3.8-11.6 [facility] Comment on above: Performed By: #### C RP, CBC, ESR #### [address] Lymphocytes [#/volume] in Bl ood by Automated countOrdered By: Manoj Forbes on 04-01-2024 Lymphocytes (Bld) [#/Vol] 1.0 10*3/uL Normal 1.00-4.8 [facility] Comment on above: Performed By: #### C RP, CBC, ESR #### [address] Lymphocytes/100 leukocytes i n Blood by Automated countOrdered By: Manoj Forbes on 04-01-2024 Lymphocytes/100 WBC (Bld) 16.9 % Normal . [facility] Comment on above: Performed By: #### C RP, CBC, ESR #### [address] MCH [Entitic mass] by Automa jeanette countOrdered By: Manoj Forbes on 04-01-2024 MCH (RBC) [Entitic mass] 30.4 pg Normal 24.7-34.3 [facility] Comment on above: Performed By: #### C RP, CBC, ESR #### [address] MCHC Auto (RBC) [Mass/Vol]Or dered By: Manoj Forbes on 04-01-2024 MCHC (RBC) [Mass/Vol] 34.3 g/dL 32.0-35.0 [facility] MCV [Entitic volume] by Auto mated countOrdered By: Manoj Forbes on 04-01-2024 MCV (RBC) [Entitic vol] 88.6 fL Normal 80-100 [facility] Comment on above: Performed By: #### C RP, CBC, ESR #### [facility] [address] [place] [address] Neutrophils [#/volume] in Bl ood by Automated countOrdered By: Manoj Forbes on 04-01-2024 Neutrophils (Bld) [#/Vol] 3.9 10*3/uL Normal 1.8-7.7 [facility] Comment on above: Performed By: #### C RP, CBC, ESR #### [facility] [address] [place] [address] Nucleated erythrocytes [Pres ence] in Blood by Automated countOrdered By: Manoj Forbes on 04-01-2024 Nucleated RBC Auto Ql (Bld) 0.1 /100{WBC} 0-0.5 [facility] Platelet mean volume [Entiti c volume] in Blood by Automated countOrdered By: Manoj Forbes on 04-01-2024 Platelet mean volume (Bld) [Entitic vol] 7.5 fL Normal 6.3-10.7 [facility] Comment on above: Performed By: #### C RP, CBC, ESR #### [facility] [address] [place] [address] Platelets [#/volume] in Bloo d by Automated countOrdered By: Manoj Forbes on 04-01-2024 Platelets (Bld) [#/Vol] 279 10*3/uL Normal 150-450 [facility] Comment on above: Performed By: #### C RP, CBC, ESR #### [facility] [address] [place] [address] ANES POSTPROC EVALon 024 ANES POSTPROC EVAL HNO ID: [id number] Author: MONO WHALEY MD Service: Anesthesiology Author [...] March 19, 2024 TIME: 11:33 AM CSN: [id number] [facility] ANES PRE-OPon 03-19-2024 ANES PRE-OP HNO ID: [id number] Author: MONO WHALEY MD Service: Anesthesiology Author [...] March 19, 2024 TIME: 7:22 AM CSN: [id number] Normal [facility] Colonoscopyon 03-19-2024 Colonoscopy [facility] Gastrointestinal Endoscopy Patient Name: Billie Yeboah Procedure Date: 03/19/2024 7:20 AM Date of : 1945 Admit Type: Outpatient Age: 78 Room: [place] [address] Gender: Female Note Status: Finalized Attending MD: Funmilayo Odell MD, [id number] Procedure: Colonoscopy Indications: Rectal bleeding Providers: Funmilayo [...] the patient. Procedure Code(s): --- Professional --- 47194, Colonoscopy, flexible; with biopsy, single or multiple CPT copyright 2020 [employer]. All rights reserved. The codes documented in this report are preliminary and upon religion teacher review may be revised to meet current [...] Loss: Estimated blood loss was minimal. Normal [facility] OPERATIVE NOon 03-19-2024 OPERATIVE NO HNO ID: [id number] Author: FUNMILAYO ODELL MD Service: Colorectal Author Type: Physician Type: Operative Report Filed: 03/19/2024 08:51 Note Text: COLON AND RECTAL SURGERY OPERATIVE REPORT PATIENT NAME: Billie Yeboah ADMISSION DATE: 03/19/2024 LOG ID: [id number] SURGERY/PROCEDURE DATE: 03/19/2024 INCISION/PROCEDURE START TIME: 7:54 AM INCISION CLOSE/PROCEDURE END TIME: 8:47 AM AGE: [age] year old SEX: female SURGEON(S)/PROCEDURA LIST(S) AND SAFETY AND SKILL BASED PAY MANAGER(S): Surgeons and Role: * Funmilayo Odell [...] Division of Colon and Rectal Surgery Normal [facility] CBC panel Auto (Bld)on 02-27 Erythrocyte distribution width (RBC) [Ratio] 12.3 % 11.5 - 15.0 % [facility] Hematocrit (Bld) [Volume fraction] 42.4 % 36.0 - 46.0 % [facility] Hemoglobin (Bld) [Mass/Vol] 13.6 g/dL 11.5 - 15.5 g/dL [facility] Interpretation and review of laboratory results Normal [facility] MCH (RBC) [Entitic mass] 29.6 pg 26.0 - 34.0 pg [facility] MCHC (RBC) [Mass/Vol] 32.1 g/dL 30.5 - 36.0 g/dL [facility] MCV (RBC) [Entitic vol] 92.4 fL 80.0 - 100.0 fL [facility] Nucleated RBC (Bld) [#/Vol] NINF [facility] Platelet mean volume (Bld) [Entitic vol] 9.6 fL 9.0 - 12.7 fL [facility] Platelets (Bld) [#/Vol] 352 10*3/uL [facility] RBC (Bld) [#/Vol] 4.59 10*6/uL 3.90 - 5.2 0 m/uL [facility] WBC (Bld) [#/Vol] 6.15 10*3/uL [facility] Erythrocyte distribution width (RBC) [Ratio] 12.3 % Normal 11.5-15.0 [facility] Comment on above: Order Comment: Speci men Type: BLOOD SPECIMEN Ordering Facility: [facility] Address: [address] [place] [address] Performed By: #### 5 8410-2 #### [facility] CLIA [id number] [facility] [place] [place] [address] [place] Hematocrit (Bld) [Volume fraction] 42.4 % Normal 36.0-46.0 [facility] Comment on above: Order Comment: Speci men Type: BLOOD SPECIMEN Ordering Facility: [facility] Address: [address] [place] [address] Performed By: #### 5 8410-2 #### [facility] CLIA [id number] [address] [place] [address] [place] Hemoglobin (Bld) [Mass/Vol] 13.6 g/dL Normal 11.5-15.5 [facility] Comment on above: Order Comment: Speci men Type: BLOOD SPECIMEN Ordering Facility: [facility] Address: [address] [place] [address] Performed By: #### 5 8410-2 #### [facility] [place] [id number] [place] [address] [place] MCH (RBC) [Entitic mass] 29.6 pg Normal 26.0-34.0 [facility] Comment on above: Order Comment: Speci men Type: BLOOD SPECIMEN Ordering Facility: [facility] Address: [address] [place] [address] Performed By: #### 5 8410-2 #### [facility] [place] [id number] [address] [place] [address] [place] MCHC (RBC) [Mass/Vol] 32.1 g/dL Normal 30.5-36.0 [facility] Comment on above: Order Comment: Speci men Type: BLOOD SPECIMEN Ordering Facility: [facility] Address: [address] [place] [address] Performed By: #### 5 8410-2 #### [facility] CLIA [id number] [address] [place] [address] [place] MCV (RBC) [Entitic vol] 92.4 fL Normal 80.0-100.0 [facility] Comment on above: Order Comment: Speci men Type: BLOOD SPECIMEN Ordering Facility: [facility] Address: [address] [place] [address] Performed By: #### 5 8410-2 #### [facility] CLIA [id number] [address] [place] [address] [place] Nucleated RBC (Bld) [#/Vol] 10*3/uL Normal <0.01 [facility] Comment on above: Order Comment: Speci men Type: BLOOD SPECIMEN Ordering Facility: [facility] Address: [address] [place] [address] Performed By: #### 5 8410-2 #### [facility] CLIA [id number] [address] [place] [address] [place] Platelet mean volume (Bld) [Entitic vol] 9.6 fL Normal 9.0-12.7 [facility] Comment on above: Order Comment: Speci men Type: BLOOD SPECIMEN Ordering Facility: [facility] Address: [address] [place] [address] Performed By: #### 5 8410-2 #### [facility] CLIA [id number] [address] [place] [address] [place] Platelets (Bld) [#/Vol] 352 10*3/uL Normal 150-400 [facility] Comment on above: Order Comment: Speci men Type: BLOOD SPECIMEN Ordering Facility: [facility] Address: [address] [place] [address] Performed By: #### 5 8410-2 #### [facility] CLIA [id number] [address] [place] [address] [place] RBC (Bld) [#/Vol] 4.59 10*6/uL Normal 3.90-5.20 [facility] Comment on above: Order Comment: Speci men Type: BLOOD SPECIMEN Ordering Facility: [facility] Address: [address] [place] [address] Performed By: #### 5 8410-2 #### [facility] CLIA [id number] [address] [place] [address] [place] WBC (Bld) [#/Vol] 6.15 10*3/uL Normal 3.70-11.00 [facility] Comment on above: Order Comment: Speci men Type: BLOOD SPECIMEN Ordering Facility: [facility] Address: [address] [place] [address] Performed By: #### 5 8410-2 #### [facility] CLIA [id number] [address] [facility] [address] [place] Comprehensive metabolic 2000 panelon 02-28-2024 Albumin [Mass/Vol] 4.1 g/dL 3.9 - 4.9 g/dL [facility] ALP [Catalytic activity/Vol] 77 U/L 34 - 123 U/L [facility] ALT [Catalytic activity/Vol] 14 U/L 7 - 38 U/L [facility] Anion gap [Moles/Vol] 12 mmol/L 8 - 15 mmol/L [facility] AST [Catalytic activity/Vol] 18 U/L 13 - 35 U/L [facility] Bilirubin [Mass/Vol] 0.5 mg/dL 0.2 - 1 .3 mg/dL [facility] Calcium [Mass/Vol] 9.4 mg/dL 8.5 - 10. 2 mg/dL [facility] Chloride [Moles/Vol] 102 mmol/L 98 - 10 7 mmol/L [facility] CO2 [Moles/Vol] 27 mmol/L 22 - 30 mmol/L [facility] Creatinine [Mass/Vol] 0.81 mg/dL 0.58 - 0.96 mg/dL [facility] GFR/1.73 sq M.predicted among non-blacks MDRD (S/P/Bld) [Vol rate/Area] 74 mL/min/{1.73_m2} - PINF [facility] Comment on above: Estimated Glomerular Filtration Rate [...] 107 mg/dL High 74 - 99 mg/dL [facility] Comment on above: The [employer] (ADA) provides guidance for [...] Standards of Medical Care in Diabetes 2016, [employer]. Diabetes Care. 2016.39(Suppl 1). Interpretation and review of laboratory results Abnormal [facility] Potassium [Moles/Vol] 4.4 mmol/L 3.7 - 5.1 mmol/L [facility] Protein [Mass/Vol] 7.5 g/dL 6.3 - 8.0 g/dL [facility] Sodium [Moles/Vol] 141 mmol/L 136 - 144 mmol/L [facility] Urea nitrogen [Mass/Vol] 11 mg/dL 7 - 21 mg/dL [facility] Albumin [Mass/Vol] 4.1 g/dL Normal 3.9-4.[address] [facility] Comment on above: Order Comment: Eliu hooker Type: BLOOD SPECIMEN Ordering Facility: [facility] Address: [address] [place] [address] Performed By: #### 3 016-3, 19277-4 #### [facility] CLIA [id number] [address] [place] [address] [place] ALP [Catalytic activity/Vol] 77 U/L Normal 34-123 [facility] Comment on above: Order Comment: Eliu hooker Type: BLOOD SPECIMEN Ordering Facility: [facility] Address: [address] [place] [address] Performed By: #### 3 016-3, 95811-8 #### [facility] CLIA [id number] [address] [place] [address] [place] ALT [Catalytic activity/Vol] 14 U/L Normal 7-38 [facility] Comment on above: Order Comment: Eliu hooker Type: BLOOD SPECIMEN Ordering Facility: [facility] Address: [address] [place] [address] Performed By: #### 3 016-3, 79321-4 #### [facility] CLIA [id number] [address] [place] [address] [place] Anion gap [Moles/Vol] 12 mmol/L Normal 8-15 [facility] Comment on above: Order Comment: Speci men Type: BLOOD SPECIMEN Ordering Facility: [facility] Address: [address] [place] [address] Performed By: #### 3 016-3, 48594-3 #### [facility] CLIA [id number] [address] [place] [address] [place] AST [Catalytic activity/Vol] 18 U/L Normal 13-35 [facility] Comment on above: Order Comment: Speci men Type: BLOOD SPECIMEN Ordering Facility: [facility] Address: [address] [place] [address] Performed By: #### 3 016-3, 13742-3 #### [facility] CLIA [id number] [address] [place] [address] [place] Bilirubin [Mass/Vol] 0.5 mg/dL Normal 0.2-1.3 [facility] Comment on above: Order Comment: Speci men Type: BLOOD SPECIMEN Ordering Facility: [facility] Address: [address] [place] [address] Performed By: #### 3 016-3, 56419-8 #### [facility] CLIA [id number] [address] [place] [address] [place] Calcium [Mass/Vol] 9.4 mg/dL Normal 8.5-10.2 [facility] Comment on above: Order Comment: Speci men Type: BLOOD SPECIMEN Ordering Facility: [facility] Address: [address] [place] [address] Performed By: #### 3 016-3, 97970-6 #### [facility] CLIA [id number] [address] [place] [address] [place] Chloride [Moles/Vol] 102 mmol/L Normal 98-107 [facility] Comment on above: Order Comment: Speci men Type: BLOOD SPECIMEN Ordering Facility: [facility] Address: [address] [place], [place] [id number] Performed By: #### 3 016-3, 95994-4 #### [facility] CLIA [id number] [address] [facility] [address] [place] CO2 [Moles/Vol] 27 mmol/L Normal 22-30 [facility] Comment on above: Order Comment: Speci men Type: BLOOD SPECIMEN Ordering Facility: [facility] Address: [address] [place] [address] Performed By: #### 3 016-3, 63832-1 #### [facility] CLIA [id number] [address] [place] [address] [place] Creatinine [Mass/Vol] 0.81 mg/dL Normal 0.58-0.96 [facility] Comment on above: Order Comment: Speci men Type: BLOOD SPECIMEN Ordering Facility: [facility] Address: [address] [place] [address] Performed By: #### 3 016-3, 79993-4 #### [facility] CLIA [id number] [facility] [address] [place] Creatinine and Glomerular filtration rate.predicted panel (S/P/Bld) 74 mL/min/1.73m??? Normal >=60 [facility] Comment on above: Order Comment: Speci men Type: BLOOD SPECIMEN Ordering Facility: [facility] Address: [address] [place] [address] Result Comment: Joycelyn mated Glomerular Filtration Rate [...] actual GFR. Performed By: #### 3 016-3, 13665-6 #### [facility] CLIA [id number] [facility] [address] [place] Glucose [Mass/Vol] 107 mg/dL High 74-99 [facility] Comment on above: Order Comment: Speci men Type: BLOOD SPECIMEN Ordering Facility: [facility] Address: [address] [place] [address] Result Comment: The [place] Diabetes Association (ADA) provides guidance for cutoff [...] Standards of Medical Care in Diabetes 2016, [place] [employer]. Diabetes Care. 2016.39(Suppl 1). Performed By: #### 3 016-3, 98249-2 #### [facility] CLIA [id number] [address] [place] [address] [place] Potassium [Moles/Vol] 4.4 mmol/L Normal 3.7-5.1 [facility] Comment on above: Order Comment: Eliu hooker Type: BLOOD SPECIMEN Ordering Facility: [facility] Address: [address] [place] [address] Performed By: #### 3 016-3, 68212-9 #### [facility] CLIA [id number] [address] [place] [address] [place] Protein [Mass/Vol] 7.5 g/dL Normal 6.3-8.0 [facility] Comment on above: Order Comment: Jonathani men Type: BLOOD SPECIMEN Ordering Facility: [facility] Address: [address] [place], [place] [id number] Performed By: #### 3 016-3, 49478-8 #### [facility] CLIA [id number] [address] [place] [address] [place] Sodium [Moles/Vol] 141 mmol/L Normal 136-144 [facility] Comment on above: Order Comment: Speci men Type: BLOOD SPECIMEN Ordering Facility: [facility] Address: [address] [id number] Performed By: #### 3 016-3, 46119-6 #### [facility] CLIA [id number] [address] [place] [address] [place] Urea nitrogen [Mass/Vol] 11 mg/dL Normal 7-21 [facility] Comment on above: Order Comment: Speci men Type: BLOOD SPECIMEN Ordering Facility: [facility] Address: [address] [id number] Performed By: #### 3 016-3, 60955-9 #### [facility] CLIA [id number] [address] [place] [address] [place] ECG COMPLETEon 02-28-2024 ECG COMPLETE Ventricular Rate : 113 BPM Atrial Rate : 113 BPM P-R Interval : 166 ms QRS Duration : 86 ms Q-T Interval : 318 ms QTC Calculation(Bazett) : 436 ms Calculated P Troy : 66 degrees Calculated R Troy : -50 degrees Calculated T Troy : 69 degrees Sinus tachycardia Right atrial enlargement Left anterior fascicular block Possible Anterolateral infarct , age undetermined Abnormal ECG No previous ECGs available Confirmed by DANIEL LAZO MD ([id number]) on 03/06/2024 10:31:42 AM NAME : BILLIE YEBOAH PID : [id number] : 1945 Gender : Female Race : ORD : [id number] Procedure Date : Feb 28 2024 13:49:41 Edit Date : Mar 06 2024 10:31:46 Diagnosis: Sinus tachycardia Right atrial enlargement Left anterior fascicular block Possible Anterolateral infarct , age undetermined Abnormal ECG No previous ECGs available Confirmed by DANIEL LAZO MD ([id number]) on 03/06/2024 10:31:42 AM Test Reason : [facility] Location : 301 : [facility] Overread By : DANIEL LAZO MD Edited By : DANIEL LAZO MD Referred By : FUNMILAYO ODELL Acquired by : dm, Normal [facility] Free T4 [Mass/Vol]on 024 Interpretation and review of laboratory results Abnormal [facility] HISTORY PHYSICALon HISTORY PHYSICAL HNO ID: [id number] Author: ZAIDA SORIANO PA-C Service: ? Author Type: [place] [employer] Type: H&P Filed: 03/10/2024 13:47 Note Text: [facility], but has at either [facility] or [facility]. Faxing for records for comparison. Checking CBC, [...] hands, unspecified osteoarthritis type Follows with outside auto polisher. On daily Etodolac and has Tramadol for [...] 35 kg/m2 Non-male patient STOP-Bang Score: 1 [id number] Score: [id number] Score: 0 ANESTHESIA FINDINGS: Intubation History: No [...] mg tablet ECG COMPLETE Faxed release to [facility] (more content not included)... Normal [facility] T4 FREE/FREE THYROXINEon Free T4 [Mass/Vol] 1.9 ng/dL High 0.9 - 1.7 ng/dL [facility] T4 Free SerPl-mCncon 024 Free T4 [Mass/Vol] 1.9 ng/dL High 0.9-1.[address] [facility] Comment on above: Order Comment: Eliu hooker Type: BLOOD SPECIMEN Ordering Facility: [facility] Address: [address] [place] [address] Performed By: #### 3 024-7 #### [facility] CLIA [id number] [address] [facility] [id number] [id number] [place] THYROID STIMULATING HORMONEo n 02-28-2024 TSH Qn 0.120 m[IU]/L Low [facility] TSH Qnon 02-28-2024 Interpretation and review of laboratory results Abnormal [facility] TSH SerPl-aCncon 02-28-2024 TSH Qn 0.120 m[IU]/L Low [facility].270[facility].200 [facility] Comment on above: Order Comment: Eliu hooker Type: BLOOD SPECIMEN Ordering Facility: [facility] Address: [address] [place] [address] Performed By: #### 3 016-3, 60909-7 #### [facility] CLIA [id number] [address] [facility] [address] [place] CNOVon 02-23-2024 CNOV Office Visit ([facility]) BILLIE YEBOAH ([id number]) 1945 F Date Time Provider Department 02/23/24 2:40 PM FUNMILAYO ODELL [facility] During your visit today, we recorded the [...] ALLERGIES Allergen Reactions Ciprofloxacin Rash, Unknown Nitrofurantoin [place]* Other: See Comments, GI Upset Sulfamethoxazole-Tr* Other: [...] exam reveals no gross blood or masses Vacuum Metalizing Supervisor present: Yes, Sarah Jimena Anoscopy: The patient was placed in chest-knee [...] MD Colorectal Surgery Referring Provider: MANOJ FORBES [[id number]] Allergies As of Date: 02/23/2024 Noted Allergy Reaction CIPROFLOXACIN 05/31/2013 2 - Rash 16 - Unknown NITROFURANTOIN MONOHYD/M-CRYST 10/27/2022 14 - Other: See Comments 8 - GI Upset SULFAMETHOXAZOLE-TRI METHOPRIM 05/31/2013 14 - Other: See Comments 2 - Rash Date Reviewed: 02/23/2024 Reviewed by: Sarah Marroquin OCCA - Fully Assessed Reason for Visit: New Patient [172] Hemorrhoids [03419] Rectal Bleeding [202] Primary Visit Diagnosis:Hemorrhoid s, [...] Encounter Status:Closed by FUNMILAYO ODELL on 02/25/24 [facility] CNOVon 11-03-2023 CNOV Office Visit ([facility]) NITOCLAYBILLIE REYNA ([id number]) 1945 F Date Time Provider Department 11/03/23 2:40 PM FUNMILAYO ODELL [facility] During your visit today, we recorded the [...] for internal providers or letter via the [employer] for external providers. Chief Complaint: BRBPR, hemorrhoids History of Present Illness: Billie Britoclaymarilee is a 78 year old female presents [...] ALLERGIES Allergen Reactions Ciprofloxacin Rash, Unknown Nitrofurantoin [place]* Other: See Comments, GI Upset Sulfamethoxazole-Tr* Other: [...] has a weak squeeze and discoordinated push Vacuum Metalizing Supervisor present: Yes, Sarah Z Anoscopy: The patient [...] reports was (more content not included)... Normal [facility] CNPDelmis 10-11-2023 CNPN Telephone ([facility]) BILLIE YEBOAH ([id number]) 1945 F Date Time Provider Department 10/11/23 FUNMILAYO ODELL [facility] During your visit today, we recorded the [...] by JEAN CARLOS GUNN on 10/11/23 Normal [facility] CBC AUTO DIFFon 08-23-2022 BASO # 0.0 103/ul Normal 0.0-0.1 [facility] Comment on above: Performed By: #### NIKI MORALES #### [facility] [address] [place] [address] Dr. Ryann Pearce Basophils/100 WBC (Bld) 1.0 % Normal 0.2-2.0 [facility] Comment on above: Performed By: #### BRET MORALESAD #### [facility] [address] [place] [address] Dr. Ryann Pearce EO # 0.2 103/ul Normal 0.0-0.7 [facility] Comment on above: Performed By: #### BRET MORALESAD #### [facility] [address] [place] [address] Dr. Ryann Pearce Eosinophils/100 WBC (Bld) 3.8 % Normal 0.9-7.0 [facility] Comment on above: Performed By: #### NIKI MORALES #### [facility] [address] [place] [address] Dr. Ryann Pearce Erythrocyte distribution width (RBC) [Ratio] 12.1 % Normal 11.0-15.0 [facility] Comment on above: Performed By: #### I WIL VITAD #### [facility] [address] [place] [address] Dr. Ryann Pearce Hematocrit (Bld) [Volume fraction] 35.5 % Critically low 36.0-48.0 [facility] Comment on above: Performed By: #### I WIL VITAD #### [facility] [address] [place] [address] Dr. Ryann Pearce Hemoglobin (Bld) [Mass/Vol] 11.7 g/dL Critically low 12.0-16.0 [facility] Comment on above: Performed By: #### I WIL VITAD #### [facility] [address] [place] [address] Dr. Ryann Pearce IG # 0.01 10e3/ul Normal 0.00-0.03 [facility] Comment on above: Performed By: #### I WIL VITAD #### [facility] [address] [place] [address] Dr. Ryann Pearce IG % 0.3 % Normal 0.0-0.5 [facility] Comment on above: Performed By: #### I WIL VITAD #### [facility] [address] [place] [address] Dr. Ryann Pearce LYMPH # 1.2 103/ul Normal 1.2-3.8 [facility] Comment on above: Performed By: #### I WIL VITAD #### [facility] [address] [place] [address] Dr. Ryann Pearce Lymphocytes/100 WBC (Bld) 31.5 % Normal 20.5-60.0 [facility] Comment on above: Performed By: #### I WIL VITAD #### [facility] [address] [place] [address] Dr. Ryann Pearce MANUAL DIFF REQ NO Normal [facility] Comment on above: Performed By: #### I WIL VITAD #### [facility] [address] [place] [address] Dr. Ryann Pearce MCH (RBC) [Entitic mass] 29.5 pg Normal 26.7-34.0 [facility] Comment on above: Performed By: #### I WIL, VITAD #### [facility] [address] [place] [address] Dr. Ryann Pearce MCHC (RBC) [Mass/Vol] 33.0 g/dL Normal 29.9-35.2 [facility] Comment on above: Performed By: #### I WIL, VITAD #### [facility] [address] [place] [address] Dr. Ryann Pearce MCV (RBC) [Entitic vol] 89.6 fL Normal 81.0-99.0 [facility] Comment on above: Performed By: #### I WIL, VITAD #### [facility] [address] [place] [address] Dr. Ryann Pearce MONO # 0.5 103/ul Normal 0.3-0.8 [facility] Comment on above: Performed By: #### I WIL, VITAD #### [facility] [address] [place] [address] Dr. Ryann Pearce Monocytes/100 WBC (Bld) 13.2 % Critically high 1.7-12.0 [facility] Comment on above: Performed By: #### I WIL, VITAD #### [facility] [address] [place] [address] Dr. Ryann Pearce NEUT # 2.0 103/ul Normal 1.4-6.5 [facility] Comment on above: Performed By: #### I WIL, VITAD #### [facility] [address] [place] [address] Dr. Ryann Pearce Neutrophils/100 WBC (Bld) 50.2 % Normal 43.0-75.0 [facility] Comment on above: Performed By: #### Mike DE LA TORRE, VITAD #### [facility] [address] [place] [address] Dr. Ryann Pearce Platelet mean volume (Bld) [Entitic vol] 8.9 fL Critically low 9.5-13.5 [facility] Comment on above: Performed By: #### I WIL, VITAD #### [facility] [address] [address] [address] Ryann Pearce PLT 253 103/ul Normal 150-450 [facility] Comment on above: Performed By: #### I WIL, VITAD #### [facility] [address] [place] [address] Dr. Ryann Pearce RBC 3.96 106/ul Critically low 4.20-5.40 [facility] Comment on above: Performed By: #### I WIL VITAD #### [facility] [address] [place] [address] Dr. Ryann Pearce WBC 3.9 103/ul Critically low 4.0-11.0 [facility] Comment on above: Performed By: #### I WIL VITAD #### [facility] [address] [place] [address] Dr. Ryann Pearce PROF 14(COMP METB)on 023 Albumin [Mass/Vol] 3.3 g/dL Critically low 3.4-5.[address] [facility] Comment on above: Performed By: #### I WIL VITAD #### [facility] [address] [place] [address] Dr. Ryann Pearce Albumin/Globulin [Mass ratio] 1.0 {ratio} Normal [facility] Comment on above: Performed By: #### I WIL VITAD #### [facility] [address] [place] [address] Dr. Ryann Pearce ALP [Catalytic activity/Vol] 65 U/L Normal 46-116 [facility] Comment on above: Performed By: #### I WIL, VITAD #### [facility] [address] [place] [address] Dr. Ryann Pearce ALT [Catalytic activity/Vol] 30 U/L Normal 14-59 [facility] Comment on above: Performed By: #### I WIL VITAD #### [facility] [address] [place] [address] Dr. Ryann Pearce Anion gap [Moles/Vol] 10.0 mmol/L Normal [facility] Comment on above: Performed By: #### I WIL, VITAD #### [facility] [address] [place] [address] Dr. Ryann Pearce AST [Catalytic activity/Vol] 26 U/L Normal 15-37 [facility] Comment on above: Performed By: #### I WIL, VITAD #### [facility] [address] [place] [address] Dr. Ryann Pearce Bilirubin [Mass/Vol] 0.4 mg/dL Normal 0.2-1.0 [facility] Comment on above: Performed By: #### I WIL VITAD #### [facility] [address] [place] [address] Dr. Ryann Pearce Calcium [Mass/Vol] 8.8 mg/dL Normal 8.5-10.1 [facility] Comment on above: Performed By: #### Mike DE LA TORRE VITAD #### [facility] [address] [place] [address] Dr. Ryann Pearce Chloride [Moles/Vol] 105 mmol/L Normal 98-107 [facility] Comment on above: Performed By: #### I WIL VITAD #### [facility] [address] [place] [address] Dr. Ryann Pearce CO2 [Moles/Vol] 30.1 mmol/L Normal 21.0-32.0 [facility] Comment on above: Performed By: #### Mike DE LA TORRE VITAD #### [facility] [address] [place] [address] Dr. Ryann Pearce Creatinine [Mass/Vol] 0.90 mg/dL Normal 0.55-1.02 [facility] Comment on above: Performed By: #### Mike DE LA TORRE VITAD #### [facility] [address] [place] [address] Dr. Ryann Pearce EGFR-AF AUSTRIAN >60 Normal >=60 [facility] Comment on above: Performed By: #### I WIL VITAD #### [facility] [address] [place] [address] Dr. Ryann Perace EGFR-NON AF AUSTRIAN >60 Normal >=60 [facility] Comment on above: Performed By: #### I WIL, VITAD #### [facility] [address] [place] [address] Dr. Ryann Pearce Globulin (S) [Mass/Vol] 3.3 g/dL Normal [facility] Comment on above: Performed By: #### I WIL, VITAD #### [facility] [address] [place] [address] Dr. Ryann Pearce Glucose [Mass/Vol] 100 mg/dL Normal 74-106 [facility] Comment on above: Performed By: #### I WIL, VITAD #### [facility] [address] [place] [address] Dr. Ryann Pearce Potassium [Moles/Vol] 4.1 mmol/L Normal 3.5-5.1 [facility] Comment on above: Performed By: #### I WIL VITAD #### [facility] [address] [place] [address] Dr. Ryann Pearce Protein [Mass/Vol] 6.6 g/dL Normal 6.4-8.2 [facility] Comment on above: Performed By: #### Mike DE LA TORRE VITAD #### [facility] [address] [place] [address] Dr. Ryann Pearce Sodium [Moles/Vol] 141 mmol/L Normal 136-145 [facility] Comment on above: Performed By: #### Mike DE LA TORRE VITAD #### [facility] [address] [place] [address] Dr. Ryann Pearce Urea nitrogen [Mass/Vol] 13.0 mg/dL Normal 7.0-18.0 [facility] Comment on above: Performed By: #### Mike DE LA TORRE VITAD #### [facility] [address] [place] [address] Dr. Ryann Pearce Urea nitrogen/Creatinine [Mass ratio] 14.4 mg/mg Normal [facility] Comment on above: Performed By: #### Mike DE LA TORRE VITAD #### [facility] [address] [place] [address] Dr. Ryann Pearce CBC AUTO DIFFon 06-06-2022 BASO # 0.0 103/ul Normal 0.0-0.1 [facility] Comment on above: Performed By: #### I WIL, VITAD #### [facility] [address] [place] [address] Dr. Ryann Pearce Basophils/100 WBC (Bld) 1.2 % Normal 0.2-2.0 [facility] Comment on above: Performed By: #### I WIL, VITAD #### [facility] [address] [place] [address] Dr. Ryann Pearce EO # 0.1 103/ul Normal 0.0-0.7 [facility] Comment on above: Performed By: #### I WIL, VITAD #### [facility] [address] [place] [address] Dr. Ryann Pearce Eosinophils/100 WBC (Bld) 3.3 % Normal 0.9-7.0 [facility] Comment on above: Performed By: #### I WIL VITAD #### [facility] [address] [place] [address] Dr. Ryann Pearce Erythrocyte distribution width (RBC) [Ratio] 12.5 % Normal 11.0-15.0 [facility] Comment on above: Performed By: #### I WIL, VITAD #### [facility] [address] [place] [address] Dr. Ryann Pearce Hematocrit (Bld) [Volume fraction] 38.7 % Normal 36.0-48.0 [facility] Comment on above: Performed By: #### I WIL, VITAD #### [facility] [address] [place] [address] Dr. Ryann Pearce Hemoglobin (Bld) [Mass/Vol] 12.8 g/dL Normal 12.0-16.0 [facility] Comment on above: Performed By: #### Mike DE LA TORRE, VITAD #### [facility] [address] [place] [address] Dr. Ryann Pearce IG # 0.01 10e3/ul Normal 0.00-0.03 [facility] Comment on above: Performed By: #### I WIL, VITAD #### [facility] [address] [address] [address] Ryann Pearce IG % 0.3 % Normal 0.0-0.5 [facility] Comment on above: Performed By: #### I WIL, VITAD #### [facility] [address] [address] [address] Ryann Pearce LYMPH # 1.1 103/ul Critically low 1.2-3.8 [facility] Comment on above: Performed By: #### I WIL, VITAD #### [facility] [address] [place] [address] Dr. Ryann Pearce Lymphocytes/100 WBC (Bld) 32.0 % Normal 20.5-60.0 [facility] Comment on above: Performed By: #### I WIL, VITAD #### [facility] [address] [place] [address] Dr. Ryann Pearce MANUAL DIFF REQ NO Normal [facility] Comment on above: Performed By: #### I WIL, VITAD #### [facility] [address] [place] [address] Dr. Ryann Pearce MCH (RBC) [Entitic mass] 29.6 pg Normal 26.7-34.0 [facility] Comment on above: Performed By: #### I WIL, VITAD #### [facility] [address] [place] [address] Dr. Ryann Pearce MCHC (RBC) [Mass/Vol] 33.1 g/dL Normal 29.9-35.2 [facility] Comment on above: Performed By: #### I WIL, VITAD #### [facility] [address] [place] [address] Dr. Ryann Pearce MCV (RBC) [Entitic vol] 89.4 fL Normal 81.0-99.0 [facility] Comment on above: Performed By: #### I WIL, VITAD #### [facility] [address] [place] [address] Dr. Ryann Pearce MONO # 0.4 103/ul Normal 0.3-0.8 [facility] Comment on above: Performed By: #### Mike DE LA TORRE, VITAD #### [facility] [address] [place] [address] Dr. Ryann Pearce Monocytes/100 WBC (Bld) 11.1 % Normal 1.7-12.0 [facility] Comment on above: Performed By: #### I WIL, VITAD #### [facility] [address] [place] [address] Dr. Ryann Pearce NEUT # 1.7 103/ul Normal 1.4-6.5 [facility] Comment on above: Performed By: #### I WIL VITAD #### [facility] [address] [place] [address] Dr. Ryann Pearce Neutrophils/100 WBC (Bld) 52.1 % Normal 43.0-75.0 [facility] Comment on above: Performed By: #### Mike DE LA TORRE VITAD #### [facility] [address] [place] [address] Dr. Ryann Pearce Platelet mean volume (Bld) [Entitic vol] 9.3 fL Critically low 9.5-13.5 [facility] Comment on above: Performed By: #### Mike DE LA TORRE VITAD #### [facility] [address] [place] [address] Dr. Ryann Pearce PLT 255 103/ul Normal 150-450 [facility] Comment on above: Performed By: #### Mike DE LA TORRE VITAD #### [facility] [address] [place] [address] Dr. Ryann Pearce RBC 4.33 106/ul Normal 4.20-5.40 [facility] Comment on above: Performed By: #### Mike DE LA TORRE VITAD #### [facility] [address] [place] [address] Dr. Ryann Pearce WBC 3.3 103/ul Critically low 4.0-11.0 [facility] Comment on above: Performed By: #### Mike DE LA TORRE VITAD #### [facility] [address] [place] [address] Dr. Ryann Pearce FREE THYROXINE INDEX T7on FTI 2.96 Normal 1.30-4.50 [facility] Comment on above: Performed By: #### T SH, LIPID, T7, CMP #### [facility] [address] [address] [address] Ryann Pearce T3U 34.0 % Normal 30.0-39.0 [facility] Comment on above: Performed By: #### T SH, LIPID, T7, CMP #### [facility] [address] [address] [address] Ryann Pearce T4 [Mass/Vol] 8.70 ug/dL Normal 4.80-13.90 [facility] Comment on above: Performed By: #### T SH, LIPID, T7, CMP #### [facility] [address] [address] [address] Ryann Pearce GLYCOHEMOGLOBIN A1Con 2021 ADA RECOMMENDATION SEE BELOW Normal [facility] Comment on above: Result Comment: ADA RECOMMENDED LIMIT 4.0 - 6.0 ADA THERAPEUTIC TARGET < 7.0 ACTION SUGGESTED > 7.0 Performed By: #### A 1C #### [facility] [address] [place] [address] Dr. Ryann Pearce Glucose [Mass/Vol] 105 mg/dL Normal [facility] Comment on above: Performed By: #### A 1C #### [facility] [address] [place] [address] Dr. Ryann Pearce HbA1c (Bld) [Mass fraction] 5.3 % Normal 4.5-6.2 [facility] Comment on above: Performed By: #### A 1C #### [facility] [address] [place] [address] Dr. Ryann Pearce IRONon 06-06-2022 Iron [Mass/Vol] 104.0 ug/dL Normal 50.0-170.0 [facility] Comment on above: Performed By: #### I NIKI DE LA TORRE #### [facility] [address] [place] [address] Dr. Ryann Pearce LIPID PROFILEon 06-06-2022 CHOL-HDL RATIO NORM SEE BELOW Normal [facility] Comment on above: Result Comment: 3.3 - 4.4 LOW RISK 4.4 - 7.1 AVERAGE RISK 7.1 - 11.0 MODERATE RISK >11.0 HIGH RISK Performed By: #### T SH, LIPID, T7, CMP #### [facility] [address] [address] [address] Ryann Pearce Cholesterol [Mass/Vol] 160 mg/dL Normal <=200 [facility] Comment on above: Performed By: #### T SH, LIPID, T7, CMP #### [facility] [address] [address] [address] Ryann Pearce Cholesterol in HDL [Mass/Vol] 75 mg/dL Critically high 40-60 [facility] Comment on above: Performed By: #### T SH, LIPID, T7, CMP #### [facility] [address] [address] [address] Ryann Pearce Cholesterol in LDL [Mass/Vol] 66.6 mg/dL Normal [facility] Comment on above: Performed By: #### T SH, LIPID, T7, CMP #### [facility] [address] [address] [address] Ryann Pearce Cholesterol.total/Chol esterol in HDL [Mass ratio] 2.1 {ratio} Normal [facility] Comment on above: Performed By: #### T SH, LIPID, T7, CMP #### [facility] [address] [place] [address] Dr. Ryann Pearce HDL NORMAL > or = 60 mg/dl - LOW CARDIOVASCULAR RISK <40 mg/dl - HIGH CARDIOVASCULAR RISK Normal [facility] Comment on above: Performed By: #### T SH, LIPID, T7, CMP #### [facility] [address] [place] [address] Dr. Ryann Pearce LDL CALC NORMAL SEE BELOW Normal [facility] Comment on above: Result Comment: <100 mg/dl OPTIMAL 100 - 129 mg/dl NEAR OR ABOVE OPTIMAL 130 - 159 mg/dl BORDERLINE HIGH 160 - 189 mg/dl HIGH >190 mg/dl VERY HIGH Performed By: #### T SH, LIPID, T7, CMP #### [facility] [address] [place] [address] Dr. Ryann Pearce Triglyceride [Mass/Vol] 92 mg/dL Normal <=150 [facility] Comment on above: Performed By: #### T SH, LIPID, T7, CMP #### [facility] [address] [address] [address] Ryann Pearce VLDL CALC 18.4 mg/dL Normal [facility] Comment on above: Performed By: #### T SH, LIPID, T7, CMP #### [facility] [address] [address] [address] Ryann Pearce PROF 14(COMP METB)on 022 Albumin [Mass/Vol] 3.4 g/dL Normal 3.4-5.0 [facility] Comment on above: Performed By: #### T SH, LIPID, T7, CMP #### [facility] [address] [place] [address] Dr. Ryann Pearce Albumin/Globulin [Mass ratio] 1.0 {ratio} Normal [facility] Comment on above: Performed By: #### T SH, LIPID, T7, CMP #### [facility] [address] [place] [address] Dr. Ryann Pearce ALP [Catalytic activity/Vol] 71 U/L Normal 46-116 [facility] Comment on above: Performed By: #### T SH, LIPID, T7, CMP #### [facility] [address] [place] [address] Dr. Ryann Pearce ALT [Catalytic activity/Vol] 19 U/L Normal 14-59 [facility] Comment on above: Performed By: #### T SH, LIPID, T7, CMP #### [facility] [address] [address] [address] Ryann Pearce Anion gap [Moles/Vol] 7.8 mmol/L Normal [facility] Comment on above: Performed By: #### T SH, LIPID, T7, CMP #### [facility] [address] [address] [address] Ryann Pearce AST [Catalytic activity/Vol] 21 U/L Normal 15-37 [facility] Comment on above: Performed By: #### T SH, LIPID, T7, CMP #### [facility] [address] [place] [address] Dr. Ryann Pearce Bilirubin [Mass/Vol] 0.6 mg/dL Normal 0.2-1.0 [facility] Comment on above: Performed By: #### T SH, LIPID, T7, CMP #### [facility] [address] [place] [address] Dr. Ryann Pearce Calcium [Mass/Vol] 8.7 mg/dL Normal 8.5-10.1 [facility] Comment on above: Performed By: #### T SH, LIPID, T7, CMP #### [facility] [address] [place] [address] Dr. Ryann Pearce Chloride [Moles/Vol] 103 mmol/L Normal 98-107 [facility] Comment on above: Performed By: #### T SH, LIPID, T7, CMP #### [facility] [address] [place] [address] Dr. Ryann Pearce CO2 [Moles/Vol] 34.4 mmol/L Critically high 21.0-32.0 [facility] Comment on above: Performed By: #### T SH, LIPID, T7, CMP #### [facility] [address] [place] [address] Dr. Ryann Pearce Creatinine [Mass/Vol] 0.75 mg/dL Normal 0.55-1.02 [facility] Comment on above: Performed By: #### T SH, LIPID, T7, CMP #### [facility] [address] [place] [address] Dr. Ryann Pearce EGFR-AF AUSTRIAN >60 Normal >=60 [facility] Comment on above: Performed By: #### T SH, LIPID, T7, CMP #### [facility] [address] [place] [address] Dr. Ryann Pearce EGFR-NON AF AUSTRIAN >60 Normal >=60 [facility] Comment on above: Performed By: #### T SH, LIPID, T7, CMP #### [facility] [address] [place] [address] Dr. Ryann Pearce Globulin (S) [Mass/Vol] 3.5 g/dL Normal [facility] Comment on above: Performed By: #### T SH, LIPID, T7, CMP #### [facility] [address] [address] [address] Ryann Pearce Glucose [Mass/Vol] 95 mg/dL Normal 74-106 [facility] Comment on above: Performed By: #### T SH, LIPID, T7, CMP #### [facility] [address] [address] [address] Ryann Pearce Potassium [Moles/Vol] 4.2 mmol/L Normal 3.5-5.1 [facility] Comment on above: Performed By: #### T SH, LIPID, T7, CMP #### [facility] [address] [place] [address] Dr. Ryann Pearce Protein [Mass/Vol] 6.9 g/dL Normal 6.4-8.2 [facility] Comment on above: Performed By: #### T SH, LIPID, T7, CMP #### [facility] [address] [address] [address] Ryann Pearce Sodium [Moles/Vol] 141 mmol/L Normal 136-145 [facility] Comment on above: Performed By: #### T SH, LIPID, T7, CMP #### [facility] [address] [place] [address] Dr. Ryann Pearce Urea nitrogen [Mass/Vol] 10.0 mg/dL Normal 7.0-18.0 [facility] Comment on above: Performed By: #### T SH, LIPID, T7, CMP #### [facility] [address] [place] [address] Dr. Ryann Pearce Urea nitrogen/Creatinine [Mass ratio] 13.3 mg/mg Normal [facility] Comment on above: Performed By: #### T SH, LIPID, T7, CMP #### [facility] [address] [place] [address] Dr. Ryann Pearce TSHon 06-06-2022 TSH 0.151 uIU/mL Critically low 0.358-3.740 [facility] Comment on above: Performed By: #### T SH, LIPID, T7, CMP #### [facility] [address] [address] [address] Ryann Pearce VITAMIN D 25 OHon 06-06-2022 VIT D 25-OH 75.4 ng/mL Normal [facility] Comment on above: Performed By: #### I WIL, VITAD #### [facility] [address] [address] [address] Ryann Pearce VIT D RANGES SEE BELOW Normal [facility] Comment on above: Result Comment: <20 ng/mL Vit D deficient 20 - <30 ng/mL Vit D insufficient 30 - 100 ng/mL Vit D sufficient >100 ng/mL Potential Toxicity Performed By: #### I WIL VITAD #### [facility] [address] [address] [address] Ryann Pearce MG MAMM SCREEN 3D KRISTINA CADon 05-11-2022 MG MAMM SCREEN 3D KRISTINA CAD Patient: BILLIE YEBOAH Exam Date: 05/11/2022 : 1945 Gender:F Ordering : DR GISELLA PORTER . Admission #: [id number] Family : Order #: [id number] CLICK HERE TO VIEW EXAM RADIOLOGY REPORT [...] breast cancer at age 80. LOCATION: [facility] BREAST COMPOSITION: Scattered areas fibroglandular density. [...] MD on 05/11/2022 at 12:45 Normal [facility] CBC AUTO DIFFon 02-21-2022 BASO # 0.0 103/ul Normal 0.0-0.1 [facility] Comment on above: Performed By: #### I WIL, VITAD #### [facility] [address] [place] [address] Dr. Ryann Pearce Basophils/100 WBC (Bld) 0.5 % Normal 0.2-2.0 [facility] Comment on above: Performed By: #### I WIL, VITAD #### [facility] [address] [place] [address] Dr. Ryann Pearce EO # 0.2 103/ul Normal 0.0-0.7 [facility] Comment on above: Performed By: #### I WIL, VITAD #### [facility] [address] [place] [address] Dr. Ryann Pearce Eosinophils/100 WBC (Bld) 3.9 % Normal 0.9-7.0 [facility] Comment on above: Performed By: #### I WIL VITAD #### [facility] [address] [place] [address] Dr. Ryann Pearce Erythrocyte distribution width (RBC) [Ratio] 12.8 % Normal 11.0-15.0 [facility] Comment on above: Performed By: #### Mike DE LA TORRE, VITAD #### [facility] [address] [place] [address] Dr. Ryann Pearce Hematocrit (Bld) [Volume fraction] 36.5 % Normal 36.0-48.0 [facility] Comment on above: Performed By: #### I WIL VITAD #### [facility] [address] [place] [address] Dr. Ryann Pearce Hemoglobin (Bld) [Mass/Vol] 11.9 g/dL Critically low 12.0-16.0 [facility] Comment on above: Performed By: #### Mike DE LA TORRE, VITAD #### [facility] [address] [place] [address] Dr. Ryann Pearce IG # 0.01 10e3/ul Normal 0.00-0.03 [facility] Comment on above: Performed By: #### I WIL, VITAD #### [facility] [address] [address] [address] Ryann Pearce IG % 0.2 % Normal 0.0-0.5 [facility] Comment on above: Performed By: #### I WIL, VITAD #### [facility] [address] [address] [address] Ryann Pearce LYMPH # 1.1 103/ul Critically low 1.2-3.8 [facility] Comment on above: Performed By: #### I WIL, VITAD #### [facility] [address] [address] [address] Ryann Pearce Lymphocytes/100 WBC (Bld) 25.5 % Normal 20.5-60.0 [facility] Comment on above: Performed By: #### Mike DE LA TORRE, VITAD #### [facility] [address] [address] [address] Ryann Pearce MANUAL DIFF REQ NO Normal [facility] Comment on above: Performed By: #### I WIL, VITAD #### [facility] [address] [address] [address] Ryann Pearce MCH (RBC) [Entitic mass] 29.6 pg Normal 26.7-34.0 [facility] Comment on above: Performed By: #### I WIL, VITAD #### [facility] [address] [address] [address] Ryann Pearce MCHC (RBC) [Mass/Vol] 32.6 g/dL Normal 29.9-35.2 [facility] Comment on above: Performed By: #### I WIL, VITAD #### [facility] [address] [address] [address] Ryann Pearce MCV (RBC) [Entitic vol] 90.8 fL Normal 81.0-99.0 [facility] Comment on above: Performed By: #### Mike DE LA TORRE, VITAD #### [facility] [address] [address] [address] Ryann Pearce MONO # 0.4 103/ul Normal 0.3-0.8 [facility] Comment on above: Performed By: #### Mike DE LA TORRE, VITAD #### [facility] [address] [place] [address] Dr. Ryann Pearce Monocytes/100 WBC (Bld) 10.4 % Normal 1.7-12.0 [facility] Comment on above: Performed By: #### Mike DE LA TORRE VITAD #### [facility] [address] [place] [address] Dr. Ryann Pearce NEUT # 2.5 103/ul Normal 1.4-6.5 [facility] Comment on above: Performed By: #### Mike DE LA TORRE VITAD #### [facility] [address] [place] [address] Dr. Ryann Pearce Neutrophils/100 WBC (Bld) 59.5 % Normal 43.0-75.0 [facility] Comment on above: Performed By: #### Mike DE LA TORRE VITAD #### [facility] [address] [place] [address] Dr. Ryann Pearce Platelet mean volume (Bld) [Entitic vol] 9.1 fL Critically low 9.5-13.5 [facility] Comment on above: Performed By: #### Mike DE LA TORRE VITAD #### [facility] [address] [place] [address] Dr. Ryann Pearce PLT 283 103/ul Normal 150-450 [facility] Comment on above: Performed By: #### Mike DE LA TORRE VITAD #### [facility] [address] [place] [address] Dr. Ryann Pearce RBC 4.02 106/ul Critically low 4.20-5.40 [facility] Comment on above: Performed By: #### Mike DE LA TORRE VITAD #### [facility] [address] [place] [address] Dr. Ryann Pearce WBC 4.2 103/ul Normal 4.0-11.0 [facility] Comment on above: Performed By: #### Mike DE LA TORRE VITAD #### [facility] [address] [place] [address] Dr. Ryann Pearce PROF 14(COMP METB)on 022 Albumin [Mass/Vol] 3.5 g/dL Normal 3.4-5.0 [facility] Comment on above: Performed By: #### I WIL, VITAD #### [facility] [address] [place] [address] Dr. Ryann Pearce Albumin/Globulin [Mass ratio] 1.0 {ratio} Normal [facility] Comment on above: Performed By: #### I WIL, VITAD #### [facility] [address] [place] [address] Dr. Ryann Pearce ALP [Catalytic activity/Vol] 68 U/L Normal 46-116 [facility] Comment on above: Performed By: #### I WIL, VITAD #### [facility] [address] [place] [address] Dr. Ryann Pearce ALT [Catalytic activity/Vol] 22 U/L Normal 14-59 [facility] Comment on above: Performed By: #### I WIL, VITAD #### [facility] [address] [place] [address] Dr. Ryann Pearce Anion gap [Moles/Vol] 11.8 mmol/L Normal [facility] Comment on above: Performed By: #### I WIL, VITAD #### [facility] [address] [place] [address] Dr. Ryann Pearce AST [Catalytic activity/Vol] 21 U/L Normal 15-37 [facility] Comment on above: Performed By: #### I WIL, VITAD #### [facility] [address] [place] [address] Dr. Ryann Pearce Bilirubin [Mass/Vol] 0.5 mg/dL Normal 0.2-1.0 [facility] Comment on above: Performed By: #### I WIL, VITAD #### [facility] [address] [address] [address] Ryann Pearce Calcium [Mass/Vol] 8.9 mg/dL Normal 8.5-10.1 [facility] Comment on above: Performed By: #### I WIL, VITAD #### [facility] [address] [place] [address] Dr. Ryann Pearce Chloride [Moles/Vol] 104 mmol/L Normal 98-107 [facility] Comment on above: Performed By: #### I WIL, VITAD #### [facility] [address] [place] [address] Dr. Ryann Pearce CO2 [Moles/Vol] 29.1 mmol/L Normal 21.0-32.0 [facility] Comment on above: Performed By: #### I WIL, VITAD #### [facility] [address] [place] [address] Dr. Ryann Pearce Creatinine [Mass/Vol] 0.66 mg/dL Normal 0.55-1.02 [facility] Comment on above: Performed By: #### I WIL, VITAD #### [facility] [address] [place] [address] Dr. Ryann Pearce EGFR-AF AUSTRIAN >60 Normal >=60 [facility] Comment on above: Performed By: #### I WIL, VITAD #### [facility] [address] [place] [address] Dr. Ryann Pearce EGFR-NON AF AUSTRIAN >60 Normal >=60 [facility] Comment on above: Performed By: #### I WIL, VITAD #### [facility] [address] [place] [address] Dr. Ryann Pearce Globulin (S) [Mass/Vol] 3.4 g/dL Normal [facility] Comment on above: Performed By: #### I WIL, VITAD #### [facility] [address] [place] [address] Dr. Ryann Pearce Glucose [Mass/Vol] 106 mg/dL Normal 74-106 [facility] Comment on above: Performed By: #### I WIL, VITAD #### [facility] [address] [place] [address] Dr. Ryann Pearce Potassium [Moles/Vol] 3.9 mmol/L Normal 3.5-5.1 [facility] Comment on above: Performed By: #### I WIL, VITAD #### [facility] [address] [address] [address] Ryann Pearce Protein [Mass/Vol] 6.9 g/dL Normal 6.4-8.2 [facility] Comment on above: Performed By: #### I WIL, VITAD #### [facility] [address] [address] [address] Ryann Pearce Sodium [Moles/Vol] 141 mmol/L Normal 136-145 [facility] Comment on above: Performed By: #### I WIL, VITAD #### [facility] [address] [address] [address] Ryann Pearce Urea nitrogen [Mass/Vol] 14.0 mg/dL Normal 7.0-18.0 [facility] Comment on above: Performed By: #### I WIL, VITAD #### [facility] [address] [address] [address] Ryann Pearce Urea nitrogen/Creatinine [Mass ratio] 21.2 mg/mg Normal [facility] Comment on above: Performed By: #### I WIL, VITAD #### [facility] [address] [address] [address] Ryann Pearce XR knee RT 3Von 02-02-2022 XR knee RT 3V [facility] [employer] Other XR knee RT 3V [facility] [employer] Other XR knee RT 3V [address] [place] [address] [employer] Other XR knee RT 3V [address] [employer] Other XR knee RT 3V XRay Report [employer] Other XR knee RT 3V Signed [place] [employer] Other XR knee RT 3V Patient: Billie Yeboah MR#: [id number] [employer] Other XR knee RT 3V [id number] [place] [employer] Other XR knee RT 3V : 1945 Acct:[id number] [employer] Other XR knee RT 3V Age/Sex: 76 / F ADM Date: 02/02/22 [employer] Other XR knee RT 3V Loc: [facility] Room: Type: [facility] [employer] Other XR knee RT 3V Attending Dr: Sydney Erickson II, MD [employer] Other XR knee RT 3V Copies to: Sydney Erickson MD [employer] Other XR knee RT 3V Ordering Provider: Sydney Erickson MD [employer] Other XR knee RT 3V Date of Service: 02/02/22 [employer] Other XR knee RT 3V XR/XR knee RT 3V - NOT FOR ER USE: History of total right knee [employer] Other XR knee RT 3V replacement [employer] Other XR knee RT 3V RIGHT KNEE - 3 views [employer] Other XR knee RT 3V CLINICAL HISTORY: Follow-up right total knee arthroplasty [employer] Other XR knee RT 3V COMPARISON: Right knee 12/20/2021 [employer] Other XR knee RT 3V FINDINGS: [employer] Other XR knee RT 3V Right knee prosthesis without radiographic complication. No acute bony process. [employer] Other XR knee RT 3V XR/XR knee RT 3V - NOT FOR ER USE [employer] Other XR knee RT 3V IMPRESSION: [employer] Other XR knee RT 3V NO EVIDENCE OF HARDWARE COMPLICATION. [employer] Other XR knee RT 3V Impression dictated by: Migue Groves Jr., D.O.02/02/2022 4:27 PM [employer] Other XR knee RT 3V Dictation Location: [facility]-- [employer] Other XR knee RT 3V Transcribed By: PWS 02/02/22 1627 [employer] Other XR knee RT 3V Dictated By: Migue Groves Jr, DO 02/02/22 1626 [employer] Other XR knee RT 3V Signed By: [employer] Other XR knee RT 3V 02/02/22 1624 [email or web address] Other COVID-19 Positive/NegativeOr dered By: Sydney Erickson on 12-17-2021 SARS-CoV-2 (COVID-19) N gene BRAULIO+probe Ql (Resp) Negative Negative [facility] Comment on above: Testing for SARS-CoV -2 by RT-PCR This test was developed and its performance characteristics determined by [employer] ([employer] and validated at the [facility]. This test has not been FDA cleared [...] Auto (Urine sed) [#/Area] 1-2 [HPF] 0-4 [facility] Automated leukocytes count i n urine sediment (number/area)Ordered By: Sydney Erickson on 12-07-2021 WBC Auto (Urine sed) [#/Area] None seen [HPF] 0-4 [facility] Basophils Auto (Bld) [#/Vol] Ordered By: Sydney Erickson on 12-07-2021 Basophils (Bld) [#/Vol] 0.0 10*3/uL 0.0-0.2 [facility] Basophils/100 WBC Auto (Bld) Ordered By: Sydney Erickson on 12-07-2021 Basophils/100 WBC (Bld) 0.9 % . [facility] Bilirubin Test strip Ql (U)O rdered By: Sydney Erickson on 12-07-2021 Bilirubin Ql (U) Negative Negative [facility] Blood hemoglobin measurement (mass/volume)Ordered By: Sydney Erickson on 12-07-2021 Hemoglobin (Bld) [Mass/Vol] 13.1 g/dL 11.8-15.4 [facility] Blood leukocytes automated c ount (number/volume)Ordered By: Sydney Erickson on 12-07-2021 WBC (Bld) [#/Vol] 3.8 10*3/uL 4.5-11.0 [facility] CT biopsyOrdered By: Sydney Erickson on 12-07-2021 CT biopsy 241 umol/L 0-285 [facility] Comment on above: Published reference interval for apparently healthy subjects between age 20 and 60 is 205 - 285 umol/L and in a poorly controlled diabetic population is 228 - 563 umol/L with a mean of 396 umol/L. Performed at: - [address] [id number] [address] Roller Operator: Fortunato Garcia PhD, Phone: [phone] Color Auto (U)Ordered By: Xuan Erickson on 12-07-2021 Color (U) Yellow Yellow [facility] Creatinine and Glomerular fi ltration rate.predicted panel (S/P/Bld)Ordered By: Sydney Erickson on 12-07-2021 Creatinine [Mass/Vol] 0.86 mg/dL 0.44-1.03 [facility] Eosinophils Auto (Bld) [#/Vo l]Ordered By: Sydney Erickson on 12-07-2021 Eosinophils (Bld) [#/Vol] 0.1 10*3/uL 0.0-0.45 [facility] Eosinophils/100 WBC Auto (Bl d)Ordered By: Sydney Erickson on 12-07-2021 Eosinophils/100 WBC (Bld) 2.4 % . [facility] Erythrocyte distribution wid th Auto (RBC) [Ratio]Ordered By: Sydney Erickson on 12-07-2021 Erythrocyte distribution width (RBC) [Ratio] 12.5 % 11.9-15.3 [facility] Estimated glomerular filtrat ion rate (GFR) non- AmericanOrdered By: Sydney Erickson on 12-07-2021 GFR/1.73 sq M.predicted among non-blacks MDRD (S/P/Bld) [Vol rate/Area] > 60 mL/Min [facility] Hematocrit Auto (Bld) [Volum e fraction]Ordered By: Sydney Erickson on 12-07-2021 Hematocrit (Bld) [Volume fraction] 39.0 % 34.0-46.4 [facility] Ketones Auto test strip (U) [Mass/Vol]Ordered By: Sydney Erickson on 12-07-2021 Ketones (U) [Mass/Vol] Negative Negative Fi [facility] - Hematology and Cell countsOrdered By: Sydney Erickson on 12-07-2021 Nucleated RBC/100 WBC (Bld) [Ratio] 0.0 % 0-0.5 [facility] Laboratory - UrinalysisOrder ed By: Sydney Erickson on 12-07-2021 Hyaline casts LM Ql (Urine sed) None seen [LPF] 0-8 [facility] Lymphocytes Auto (Bld) [#/Vo l]Ordered By: Sydney Erickson on 12-07-2021 Lymphocytes (Bld) [#/Vol] 1.0 10*3/uL 1.00-4.8 [facility] Lymphocytes/100 WBC Auto (Bl d)Ordered By: Sydney Erickson on 12-07-2021 Lymphocytes/100 WBC (Bld) 26.7 % . [facility] MCH Auto (RBC) [Entitic mass ]Ordered By: Sydney Erickson on 12-07-2021 MCH (RBC) [Entitic mass] 29.7 pg 24.7-34.3 [facility] MCHC Auto (RBC) [Mass/Vol]Or dered By: Sydney Erickson on 12-07-2021 MCHC (RBC) [Mass/Vol] 33.5 g/dL 32.0-35.0 [facility] MCV Auto (RBC) [Entitic vol] Ordered By: Sydney Erickson on 12-07-2021 MCV (RBC) [Entitic vol] 88.7 fL 80-100 [facility] Monocytes Auto (Bld) [#/Vol] Ordered By: Sydney Erickson on 12-07-2021 Monocytes (Bld) [#/Vol] 0.4 10*3/uL 0.0-0.8 [facility] Monocytes/100 WBC Auto (Bld) Ordered By: Sydney Erickson on 12-07-2021 Monocytes/100 WBC (Bld) 11.1 % . [facility] Neutrophils Auto (Bld) [#/Vo l]Ordered By: Sydney Erickson on 12-07-2021 Neutrophils (Bld) [#/Vol] 2.2 10*3/uL 1.8-7.7 [facility] Neutrophils/100 WBC Auto (Bl d)Ordered By: Sydney Erickson on 12-07-2021 Neutrophils/100 WBC (Bld) 58.9 % . [facility] Nitrite Test strip Ql (U)Ord ered By: Sydney Erickson on 12-07-2021 Nitrite Ql (U) Negative Negative [facility] No Panel InformationOrdered By: Sydney Erickson on 12-07-2021 Estimated GFR () > 60 mL/Min [facility] Comment on above: GFR estimated refere nce range: According to KDOQI guidelines, <60 ml/min/1.73m2 is sufficient to diagnose a patient with chronic kidney disease. Pharmacy Creatinine Clearance (Chem N/A [facility] Platelet mean volume Auto (B ld) [Entitic vol]Ordered By: Sydney Erickson on 12-07-2021 Platelet mean volume (Bld) [Entitic vol] 8.2 fL 6.3-10.7 [facility] Platelets Auto (Bld) [#/Vol] Ordered By: Sydney Erickson on 12-07-2021 Platelets (Bld) [#/Vol] 274 10*3/uL 150-450 [facility] Protein Auto test strip (U) [Mass/Vol]Ordered By: Sydney Erickson on 12-07-2021 Protein (U) [Mass/Vol] Negative Negative Fi [facility] RBC Auto (Bld) [#/Vol]Ordere d By: Sydney Erickson on 12-07-2021 RBC (Bld) [#/Vol] 4.40 10*6/uL 3.60-5.00 [facility] Serum or plasma calcium catalino urement (mass/volume)Ordered By: Sydney Erickson on 12-07-2021 Calcium [Mass/Vol] 9.3 mg/dL 8.2-10.2 [facility] Serum or plasma chloride juan surement (moles/volume)Ordered By: Sydney Erickson on 12-07-2021 Chloride [Moles/Vol] 99 mmol/L 95-114 [facility] Serum or plasma glucose catalino urement (mass/volume)Ordered By: Sydney Erickson on 12-07-2021 Glucose [Mass/Vol] 94 mg/dL 70-100 [facility] Comment on above: ADA recommended refe rence range Random Glucose Reference Range is dependent on time and content of last meal. Glucose of more than 200 mg/dL in a nonstressed, ambulatory subject supports the diagnosis of Diabetes Mellitus. Serum or plasma potassium me asurement (moles/volume)Ordered By: Sydney Erickson on 12-07-2021 Potassium [Moles/Vol] 4.4 mmol/L 3.5-5.1 [facility] Serum or plasma sodium measu rement (moles/volume)Ordered By: Sydney Erickson on 12-07-2021 Sodium [Moles/Vol] 139 mmol/L 136-146 [facility] Serum or plasma total carbon dioxide measurement (moles/volume)Ordered By: Sydney Erickson on 12-07-2021 CO2 [Moles/Vol] 26.7 mmol/L 22.0-30.0 [facility] Serum or plasma urea nitroge n measurement (mass/volume)Ordered By: Sydney Erickson on 12-07-2021 Urea nitrogen [Mass/Vol] 14 mg/dL 9- [facility] Specific gravity Auto test s trip (U) [Rel density]Ordered By: Sydney Erickson on 12-07-2021 Specific gravity (U) [Rel density] 1.010 1.001-1.030 [facility] Squamous epithelial cells de tection in urine sediment by light microscopyOrdered By: Sydney Erickson on 12-07-2021 Epithelial cells.squamous LM Ql (Urine sed) None seen [HPF] 0-2 [facility] Urine bacteria detection by automated methodOrdered By: Sydney Erickson on 12-07-2021 Bacteria Auto Ql (U) None seen None Seen [facility] Urine clarity by refractomet ry automatedOrdered By: Sydney Erickson on 12-07-2021 Clarity Refractometry automated (U) Clear Clear [facility] Urine glucose measurement by automated test strip (mass/volume)Ordered By: Sydney Erickson on 12-07-2021 Glucose Auto test strip (U) [Mass/Vol] Normal mg/dL Normal [facility] Urine hemoglobin detection b y automated test stripOrdered By: Sydney Erickson on 12-07-2021 Hemoglobin Auto test strip Ql (U) Negative Negative [facility] Urine leukocyte esterase det ection by automated test stripOrdered By: Sydney Erickson on 12-07-2021 Leukocyte esterase Auto test strip Ql (U) 1+ Negative [facility] Urobilinogen Auto test strip (U) [Mass/Vol]Ordered By: Sydney Erickson on 12-07-2021 Urobilinogen (U) [Mass/Vol] Normal mg/dL Normal [facility] pH Auto test strip (U)Ordere d By: Sydney Erickson on 12-07-2021 pH (U) 7.5 [pH] 5.0-9.0 [facility] CBC AUTO DIFFon 09-01-2021 BASO # 0.0 103/ul Normal 0.0-0.1 [facility] Comment on above: Performed By: #### I IWL, VITAD #### [facility] [address] [place] [address] Dr. Ryann Pearce Basophils/100 WBC (Bld) 0.8 % Normal 0.2-2.0 [facility] Comment on above: Performed By: #### I WIL, VITAD #### [facility] [address] [place] [address] Dr. Ryann Pearce EO # 0.2 103/ul Normal 0.0-0.7 [facility] Comment on above: Performed By: #### I WIL, VITAD #### [facility] [address] [place] [address] Dr. Ryann Pearce Eosinophils/100 WBC (Bld) 4.1 % Normal 0.9-7.0 [facility] Comment on above: Performed By: #### Mike DE LA TORRE VITAD #### [facility] [address] [place] [address] Dr. Ryann Pearce Erythrocyte distribution width (RBC) [Ratio] 12.5 % Normal 11.0-15.0 [facility] Comment on above: Performed By: #### Mike DE LA TORRE VITAD #### [facility] [address] [place] [address] Dr. Ryann Pearce Hematocrit (Bld) [Volume fraction] 37.6 % Normal 36.0-48.0 [facility] Comment on above: Performed By: #### Mkie DE LA TORRE VITAD #### [facility] [address] [place] [address] Dr. Ryann Pearce Hemoglobin (Bld) [Mass/Vol] 12.3 g/dL Normal 12.0-16.0 [facility] Comment on above: Performed By: #### Mike DE LA TORRE VITAD #### [facility] [address] [place] [address] Dr. Ryann Pearce IG # 0.02 10e3/ul Normal 0.00-0.03 [facility] Comment on above: Performed By: #### I WIL VITAD #### [facility] [address] [place] [address] Dr. Ryann Pearce IG % 0.5 % Normal 0.0-0.5 [facility] Comment on above: Performed By: #### I WIL, VITAD #### [facility] [address] [place] [address] Dr. Ryann Pearce LYMPH # 1.1 103/ul Critically low 1.2-3.8 [facility] Comment on above: Performed By: #### I WIL, VITAD #### [facility] [address] [place] [address] Dr. Ryann Pearce Lymphocytes/100 WBC (Bld) 29.0 % Normal 20.5-60.0 [facility] Comment on above: Performed By: #### I WIL, VITAD #### [facility] [address] [place] [address] Dr. Ryann Pearce MANUAL DIFF REQ NO Normal [facility] Comment on above: Performed By: #### I WIL, VITAD #### [facility] [address] [place] [address] Dr. Ryann Pearce MCH (RBC) [Entitic mass] 30.5 pg Normal 26.7-34.0 [facility] Comment on above: Performed By: #### I WIL VITAD #### [facility] [address] [place] [address] Dr. Ryann Pearce MCHC (RBC) [Mass/Vol] 32.7 g/dL Normal 29.9-35.2 [facility] Comment on above: Performed By: #### I WIL, VITAD #### [facility] [address] [place] [address] Dr. Ryann Pearce MCV (RBC) [Entitic vol] 93.3 fL Normal 81.0-99.0 [facility] Comment on above: Performed By: #### I WIL, VITAD #### [facility] [address] [place] [address] Dr. Ryann Pearce MONO # 0.5 103/ul Normal 0.3-0.8 [facility] Comment on above: Performed By: #### Mike DE LA TORRE, VITAD #### [facility] [address] [place] [address] Dr. Ryann Pearce Monocytes/100 WBC (Bld) 13.1 % Critically high 1.7-12.0 [facility] Comment on above: Performed By: #### Mike DE LA TORRE VITAD #### [facility] [address] [place] [address] Dr. Ryann Pearce NEUT # 2.0 103/ul Normal 1.4-6.5 [facility] Comment on above: Performed By: #### I WIL VITAD #### [facility] [address] [place] [address] Dr. Ryann Pearce Neutrophils/100 WBC (Bld) 52.5 % Normal 43.0-75.0 [facility] Comment on above: Performed By: #### Mike DE LA TORRE VITAD #### [facility] [address] [place] [address] Dr. Ryann Pearce Platelet mean volume (Bld) [Entitic vol] 9.0 fL Critically low 9.5-13.5 [facility] Comment on above: Performed By: #### Mike DE LA TORRE VITAD #### [facility] [address] [place] [address] Dr. Ryann Pearce PLT 229 103/ul Normal 150-450 [facility] Comment on above: Performed By: #### Mike DE LA TORRE VITAD #### [facility] [address] [place] [address] Dr. Ryann Pearce RBC 4.03 106/ul Critically low 4.20-5.40 [facility] Comment on above: Performed By: #### Mike DE LA TORRE VITAD #### [facility] [address] [place] [address] Dr. Ryann Pearce WBC 3.9 103/ul Critically low 4.0-11.0 [facility] Comment on above: Performed By: #### Mike ED LA TORRE VITAD #### [facility] [address] [place] [address] Dr. Ryann Pearce PROF 14(COMP METB)on 022 Albumin [Mass/Vol] 3.1 g/dL Critically low 3.5-5.[address] [facility] Comment on above: Performed By: #### C MP #### [facility] [address] [place] [address] Dr. Ryann Pearce Albumin/Globulin [Mass ratio] 0.9 {ratio} Normal [facility] Comment on above: Performed By: #### C MP #### [facility] [address] [place] [address] Dr. Ryann Pearce ALP [Catalytic activity/Vol] 66 U/L Normal 38-126 [facility] Comment on above: Performed By: #### C MP #### [facility] [address] [place] [address] Dr. Ryann Pearce ALT [Catalytic activity/Vol] 28 U/L Normal 9-52 [facility] Comment on above: Performed By: #### C MP #### [facility] [address] [place] [address] Dr. Ryann Pearce Anion gap [Moles/Vol] 9.8 mmol/L Normal [facility] Comment on above: Performed By: #### C MP #### [facility] [address] [place] [address] Dr. Ryann Pearce AST [Catalytic activity/Vol] 22 U/L Normal 14-36 [facility] Comment on above: Performed By: #### C MP #### [facility] [address] [place] [address] Dr. Ryann Pearce Bilirubin [Mass/Vol] 0.5 mg/dL Normal 0.2-1.3 [facility] Comment on above: Performed By: #### C MP #### [facility] [address] [place] [address] Dr. Ryann Pearce Calcium [Mass/Vol] 8.5 mg/dL Normal 8.4-10.2 [facility] Comment on above: Performed By: #### C MP #### [facility] [address] [place] [address] Dr. Ryann Pearce Chloride [Moles/Vol] 102 mmol/L Normal 98-107 [facility] Comment on above: Performed By: #### C MP #### [facility] [address] [place] [address] Dr. Ryann Pearce CO2 [Moles/Vol] 31.7 mmol/L Critically high 22.0-30.0 [facility] Comment on above: Performed By: #### C MP #### [facility] [address] [address] [address] Ryann Pearce Creatinine [Mass/Vol] 0.91 mg/dL Normal 0.52-1.04 [facility] Comment on above: Performed By: #### C MP #### [facility] [address] [address] [address] Ryann Pearce EGFR-AF AUSTRIAN >60 Normal >=60 [facility] Comment on above: Performed By: #### C MP #### [facility] [address] [address] [address] Ryann Pearce EGFR-NON AF AUSTRIAN =60 Normal >=60 [facility] Comment on above: Performed By: #### C MP #### [facility] [address] [place] [address] Dr. Ryann Pearce Globulin (S) [Mass/Vol] 3.3 g/dL Normal [facility] Comment on above: Performed By: #### C MP #### [facility] [address] [address] [address] Ryann Pearce Glucose [Mass/Vol] 89 mg/dL Normal 74-106 [facility] Comment on above: Performed By: #### C MP #### [facility] [address] [place] [address] Dr. Ryann Pearce Potassium [Moles/Vol] 4.5 mmol/L Normal 3.4-5.0 [facility] Comment on above: Performed By: #### C MP #### [facility] [address] [place] [address] Dr. Ryann Pearce Protein [Mass/Vol] 6.4 g/dL Normal 6.1-8.2 [facility] Comment on above: Performed By: #### C MP #### [facility] [address] [place] [address] Dr. Ryann Pearce Sodium [Moles/Vol] 139 mmol/L Normal 137-145 [facility] Comment on above: Performed By: #### C MP #### [facility] [address] [place], [place] [address] Dr. Ryann Pearce Urea nitrogen [Mass/Vol] 14.0 mg/dL Normal 7.0-17.0 [facility] Comment on above: Performed By: #### C MP #### [facility] [address] [place], [place] [address] Dr. Ryann Pearce Urea nitrogen/Creatinine [Mass ratio] 15.4 mg/mg Normal [facility] Comment on above: Performed By: #### C MP #### [facility] [address] [place], [place] [address] Dr. Ryann Pearce Vital Signs Date Time Vital Sign Value Performing Clinician Facility 02-28-2024 14:29-0400 Body height 167.6 cm Pacc 2 Work Phone: [facility] 02-28-2024 14:29-0400 Body mass index (BMI) [Ratio] 23.77 kg/m2 Pacc 2 Work Phone: [facility] 02-28-2024 14:29-0400 Body temperature 97.7 [degF] Pacc 2 Work Phone: [facility] 02-28-2024 14:29-0400 Body weight 66.8 kg Pacc 2 Work Phone: [facility] 02-28-2024 14:29-0400 Diastolic blood pressure 82 mm[Hg] Pacc 2 Work Phone: [facility] 02-28-2024 14:29-0400 Heart rate 120 /min Pacc 2 Work Phone: [facility] 02-28-2024 14:29-0400 Respiratory rate 18 /min Pacc 2 Work Phone: [facility] 02-28-2024 14:29-0400 SaO2% (BldA) [Mass fraction] 97 % Pacc 2 Work Phone: [facility] 02-28-2024 14:29-0400 Systolic blood pressure 140 mm[Hg] Pacc 2 Work Phone: [facility] 02-23-2024 14:03-0400 Body height 167.6 cm Funmilayo Odell MD Work Phone: [facility] 02-23-2024 14:03-0400 Body mass index (BMI) [Ratio] 23.08 kg/m2 Funmilayo Odell MD Work Phone: [facility] 02-23-2024 14:03-0400 Body temperature 97.5 [degF] Funmilayo Odell MD Work Phone: [facility] 02-23-2024 14:03-0400 Body weight 64.86 kg Funmilayo Odell MD Work Phone: [facility] Comment on above: per pt. 02-23-2024 14:03-0400 Diastolic blood pressure 83 mm[Hg] Funmilayo Odell MD Work Phone: [facility] 02-23-2024 14:03-0400 Heart rate 103 /min Funmilayo Odell MD Work Phone: [facility] 02-23-2024 14:03-0400 SaO2% (BldA) [Mass fraction] 94 % Funmilayo Odell MD Work Phone: [facility] 02-23-2024 14:03-0400 Systolic blood pressure 134 mm[Hg] Funmilayo Odell MD Work Phone: [facility] 11-03-2023 14:18-0400 Body temperature 97.11 [degF] Funmilayo Odell MD Work Phone: [facility] 11-03-2023 14:18-0400 Diastolic blood pressure 87 mm[Hg] Funmilayo Odell MD Work Phone: [facility] 11-03-2023 14:18-0400 Heart rate 85 /min Funmilayo Odell MD Work Phone: [facility] 11-03-2023 14:18-0400 SaO2% (BldA) [Mass fraction] 98 % Funmilayo Odell MD Work Phone: [facility] 11-03-2023 14:18-0400 Systolic blood pressure 179 mm[Hg] Funmilayo Odell MD Work Phone: [facility] 12-07-2022 10:00-0400 Body height 165.1 cm Ivette Taylor Other [employer] Other 12-07-2022 10:00-0400 Body mass index (BMI) [Ratio] 24.96 kg/m2 Ivette Taylor Other [employer] Other 12-07-2022 10:00-0400 Body weight 68.04 kg Ivette Taylor Other [employer] Other 10-27-2022 13:59-0400 Diastolic blood pressure 74 mm[Hg] Funmilayo Odell MD Work Phone: [facility] 10-27-2022 13:59-0400 Heart rate 98 /min Funmilayo Odell MD Work Phone: [facility] 10-27-2022 13:59-0400 SaO2% (BldA) [Mass fraction] 96 % Funmilayo Odell MD Work Phone: [facility] 10-27-2022 13:59-0400 Systolic blood pressure 137 mm[Hg] Funmilayo Odell MD Work Phone: [facility] 09-21-2022 11:31-0400 Diastolic blood pressure 90 mm[Hg] MD Gisella Porter Work Phone: [facility] 09-21-2022 11:31-0400 Heart rate 94 /min MD Gisella Porter Work Phone: [facility] 09-21-2022 11:31-0400 Respiratory rate 18 /min MD Gisella Porter Work Phone: [facility] 09-21-2022 11:31-0400 SaO2% (BldA) [Mass fraction] 98 % MD Gisella Porter Work Phone: [facility] 09-21-2022 11:31-0400 Systolic blood pressure 146 mm[Hg] MD Gisella Porter Work Phone: [facility] 09-21-2022 10:09-0400 Body height 167.64 cm MD Gisella Porter Work Phone: [facility] 09-21-2022 10:09-0400 Body temperature 98.7 [degF] MD Gisella Porter Work Phone: [facility] 09-21-2022 10:09-0400 Body weight 64.41 kg MD Gisella Porter Work Phone: [facility] 01-05-2022 14:45-0400 Body height 165.1 cm [employer] Other [employer] Other 01-05-2022 14:45-0400 Body mass index (BMI) [Ratio] 22.96 kg/m2 [employer] Other [employer] Other 01-05-2022 14:45-0400 Body weight 62.6 kg [employer] Other [employer] Other 12-20-2021 12:31-0400 Diastolic blood pressure 94 mm[Hg] MD Gisella Porter Work Phone: [facility] 12-20-2021 12:31-0400 Heart rate 78 /min MD Gisella Porter Work Phone: [facility] 12-20-2021 12:31-0400 Respiratory rate 16 /min MD Gisella Porter Work Phone: [facility] 12-20-2021 12:31-0400 SaO2% (BldA) [Mass fraction] 99 % MD Gisella Porter Work Phone: [facility] 12-20-2021 12:31-0400 Systolic blood pressure 172 mm[Hg] MD Gisella Porter Work Phone: [facility] 12-20-2021 09:35-0400 Body temperature 97.8 [degF] MD Gisella Porter Work Phone: [facility] 12-20-2021 09:35-0400 Inhaled oxygen flow rate 6 L/min MD Gisella Porter Work Phone: [facility] 12-20-2021 08:23-0400 Body height 167.64 cm MD Gisella Porter Work Phone: [facility] 12-20-2021 08:23-0400 Body mass index (BMI) [Ratio] 23.8 kg/m2 MD Gisella Porter Work Phone: [facility] 12-20-2021 08:23-040 Body weight 67 kg MD Gisella Porter Work Phone: [facility] 11-10-2021 10:45-0400 Body height 165.1 cm [employer] Other [employer] Other 11-10-2021 10:45-0400 Body mass index (BMI) [Ratio] 23.13 kg/m2 [employer] Other [employer] Other 11-10-2021 10:45-0400 Body weight 63.05 kg Sydney Angelina II Other [employer] Other 04-20-2021 11:45-0400 Body height 165.1 cm Manoj Forbes Other [employer] Other 04-20-2021 11:45-0400 Body mass index (BMI) [Ratio] 23.13 kg/m2 Manoj Forbes Other [employer] Other 04-20-2021 11:45-0400 Body weight 63.05 kg Manoj Forbes Other [employer] Other 04-20-2021 11:45-0400 Diastolic blood pressure 106 mm[Hg] Manoj Forbes Other [employer] Other 04-20-2021 11:45-0400 Systolic blood pressure 155 mm[Hg] Manoj Forbes Other [employer] Other Encounters Encounter Date Encounter Type Care Provider Facility Start: 06-21-2024 End: 06-21-2024 ambulatory Manoj Ivett Olgasandi Facility:[facility] Start: 04-01-2024 End: 04-01-2024 Patient encounter procedure MD Gisella Porter Work Phone: [facility] [place] Work Phone: Start: 04-01-2024 End: 04-01-2024 ambulatory MD Gisella Porter Work Phone: [facility] [place] Work Phone: Start: 03-19-2024 End: 03-19-2024 Evaluation and management of inpatient FUNMILAYO ODELL Facility:[facility] Start: 02-28-2024 End: 02-28-2024 Admission to [...] Preprocedural examination done Pacc 2 Work Phone: [facility] Work Phone: Start: 02-28-2024 End: 02-28-2024 ambulatory ZAIDA SORIANO Facility:[facility] Start: 02-28-2024 Encounter for other preprocedural examination FUNMILAYO ODELL [facility] Start: 02-23-2024 End: 02-23-2024 ambulatory MANOJ SHANIKABassam Facility:[facility] Start: 02-23-2024 End: 02-23-2024 Patient encounter procedure Funmilayo Odell MD Work Phone: Colorectal Surgery Comment on above: Hemorrhoids, unspeci fied hemorrhoid type (Primary Dx) Start: 11-03-2023 End: 11-03-2023 ambulatory MANOJ FORBES Facility:[facility] Start: 11-03-2023 End: 11-03-2023 Patient encounter procedure Funmilayo Odell MD Work Phone: Colorectal Surgery Comment on above: BRBPR (bright red bl ood per rectum) (Primary Dx); Hemorrhoids, unspecified hemorrhoid type; Pelvic floor dysfunction Start: 10-11-2023 Telephone encounter Funmilayo arizmendi MD Work Phone: Colorectal Surgery Comment on above: Received Outside [facility] Records; Appointment Start: 04-10-2023 End: 04-10-2023 ambulatory Manoj Forbes Other [employer] Other Start: 04-10-2023 Telephone encounter Manoj MCNEIL G [facility] Start: 01-04-2023 End: 01-04-2023 ambulatory Ivette Taylor Other [employer] Other Start: 01-04-2023 Office outpatient vi sit 15 minutes Ivette Taylor [facility] Start: 12-23-2022 End: 12-23-2022 ambulatory MD Gisella Porter Work Phone: [facility] Work Phone: Start: 12-23-2022 End: 12-23-2022 Patient encounter procedure MD Gisella Porter Work Phone: [facility] Start: 12-07-2022 Office outpatient ne w 30 minutes Ivettelatonya Taylor [facility] Start: 12-07-2022 End: 12-07-2022 ambulatory MD Gisella Porter Work Phone: [facility] Work Phone: Start: 12-07-2022 End: 12-07-2022 Patient encounter procedure MD Gisella Porter Work Phone: [facility] Start: 10-27-2022 End: 10-27-2022 Patient encounter procedure Funmilayo Odell MD Work Phone: Colorectal Surgery Comment on above: Hemorrhoids, unspeci fied hemorrhoid type (Primary Dx) Start: 09-22-2022 End: 09-22-2022 ambulatory Manoj Forbes Other [employer] Other Start: 09-22-2022 Telephone encounter Man[facility] Start: 09-21-2022 End: 09-21-2022 Admission to same day surgery center MD Gisella Porter Work Phone: [facility] Work Phone: Start: 09-21-2022 End: 09-21-2022 ambulatory MD Gisella Porter Work Phone: [facility] Work Phone: Start: 08-23-2022 End: 08-24-[address] DOCTOR MAHARAJ Facility:[facility] Start: 08-04-2022 End: 08-04-2022 ambulatory aMnoj Forbes Other [employer] Other Start: 08-04-2022 Telephone encounter Manoj [facility] Start: 07-06-2022 End: 07-07-[address] GISELLA PORTER . Facility:[facility] Start: 06-06-2022 End: 06-07-[address] GISELLA PORTER . Facility:[facility] Start: 05-11-2022 End: 05-12-[address] GISELLA PORTER . Facility:[facility] Start: 04-04-2022 End: 04-04-2022 ambulatory Manoj Forbes Other [employer] Other Start: 04-04-2022 Telephone encounter Manoj Forbes [facility] Start: 03-16-2022 End: 03-16-2022 Patient encounter procedure MD Gisella Pruitt Phone: [facility] [place] Start: 02-23-2022 End: 02-23-2022 Discharged Recurring MD Gisella Porter Work Phone: [facility] [place]-[facility] [place] Start: 02-21-2022 End: 02-22-[address] LITA HANSEN Facility: Start: 02-02-2022 (Post-Op) Post-Op Sydney Angelina II [facility] Start: 02-02-2022 End: 02-02-2022 ambulatory Sydney Erickson II Other [employer] Other Start: 02-02-2022 End: 02-02-2022 Patient encounter procedure MD Gisella Porter Work Phone: [facility] [place] Start: 01-05-2022 (Post-Op) Post-Op Sydney Angelina II [facility] Start: 01-05-2022 End: 01-05-2022 ambulatory Sydney Angelina II Other [employer] Other Start: 12-20-2021 End: 12-20-2021 Admission to same day surgery center MD Gisella Pruitt Phone: [facility] [place]-[facility] [place] Start: 12-17-2021 End: 12-17-2021 Patient encounter procedure MD Gisella Porter Work Phone: [facility] [place]-Pre-Surgical Testing Start: 12-10-2021 (Prolonged) Prolonge d Services Sydney Angelina II [facility] Start: 12-10-2021 End: 12-10-2021 ambulatory Sydney Angelina II Other [employer] Other Start: 12-10-2021 Telephone encounter Sydney Darek II [facility] Start: 12-07-2021 End: 12-07-2021 Patient encounter procedure MD Gisella Porter Work Phone: [facility] [place] Start: 12-01-2021 End: 12-01-2021 ambulatory Sydney Darek II Other [employer] Other Start: 12-01-2021 Patient encounter procedure Sydney Darek II [facility] Start: 11-18-2021 Encounter for preprocedural cardiovascular examination SYDNEY ERICKSON [facility] Start: 11-12-2021 End: 11-13-2021 ambulatory SYDNEY ERICKSON Facility:[facility] Start: 11-12-2021 End: 11-13-2021 Encounter for preprocedural cardiovascular examination SYDNEY ERICKSON Facility:[facility] Start: 11-10-2021 End: 11-10-2021 ambulatory Sydney Andersenle II Other [employer] Other Start: 11-10-2021 Office outpatient vi sit 40 minutes Sydney Darek II [facility] Start: 09-01-2021 End: 09-02-[address] DOCTOR MAHARAJ Facility:[facility] Start: 08-13-2021 End: 08-13-2021 ambulatory Sydney Angelina II Other [employer] Other Start: 08-13-2021 Office outpatient ne w 45 minutes Sydney Darek II [facility] Start: 04-20-2021 Patient encounter procedure Manoj Forbes [facility] G[facility] Procedures Date Procedure Procedure Detail Performing [...] Start: 02-27-2027 Diabetes Screening Diabetes Screenin miguelito [facility] Start: 03-19-2024 End: 03-19-2024 Admission to same day surgery center 03/19/2024 7:30 AM EDT - 03/19/2024 8:40 AM EDT Surgery [facility] [address] [place] [address] [place] [address] [place] [address] EXCISION RECTAL PROCIDENTIA W/ ANASTOMOSIS [facility] Comment on above: EXCISION RECTAL [...] physician 03/19/2024 7:30 AM EDT Hospital Encounter [facility] [address] [place] [address] [place] [address] [place], [place] [id number] BRBPR (bright red blood per rectum) [K62.5] [facility] Comment on above: BRBPR (bright red bl ood per rectum) [K62.5] Start: 02-25-2024 Covid-19 Vaccine () Covid-19 Vaccine () [facility] Start: 02-25-2024 Influenza vaccination C [facility] Start: 06-26-2023 Advance Directive Discussion Advance Directive Discussion [facility] Start: 06-26-2023 Behavioral Health Screening Behavioral Health Screening [facility] Start: 02-24-2023 Covid-19 Vaccine () Covid-19 Vaccine () [facility] Start: 02-24-2023 Influenza vaccination INFLUENZ A (Season Ended) [facility] Start: 09-21-2022 [facility] Start: 06-26-2022 ADVANCE DIRECTIVE DISCUSSION ADVANCE DIRECTIVE DISCUSSION [facility] Start: 06-26-2022 DEPRESSION ASSESSMENT DEPRESSION ASS ESSMENT [facility] Start: 12-20-2021 [facility] Work Phone: Start: 12-20-2021 [facility] Work Phone: Start: 06-16-2021 COVID-19 VACCINE (4 - Booster for Moderna series) COVID-19 VACCINE (4 - Booster for Moderna series) [facility] Start: 2010 BONE DENSITY BONE DENSITY [facility] Start: 2010 PNEUMOCOCCAL: 65+ (1 - PCV) PNEUMOCOCCAL: 65+ (1 - PCV) [facility] Start: 2010 Screening for osteoporosis Bone Density Screening [facility] Start: 2005 RSV Vaccine (1 - 1-d ose 60+ series) RSV Vaccine (1 - 1-dose 60+ series) [facility] Start: 1995 SHINGRIX VACCINE (1 of 2) SHINGRIX VACCINE (1 of 2) [facility] Start: 1990 [facility] Start: 1990 Diabetes Screening Diabetes Screenin g [facility] Start: 1964 Urine microalbumin profile [facility] Start: 1963 Annual PCP Team [employer] sudha Disease Visit Annual PCP Team Chronic Disease Visit [facility] Start: 1963 Anxiety Screening Anxiety Screening [facility] Start: 1963 Depression Screening Depression Scre ening [facility] Start: 1963 HEPATITIS C SCREENING HEPATITIS C [facility] Start: 1963 Hepatitis C screening Hepatitis C [facility] ECG COMPLETE ECG COMPLETE ECG Routine Preoperative examination Tachycardia 02/28/2024 1:49 PM EDT [facility] Work Phone: Patient Education Hemorrhoids (DC) [facility] Work Phone: [facility] Immunizations Immunization Date Immunization Notes Care Provider Clay choudhary 04-16-2021 COVID-19 mRNA-1273 (Moderna) MD Gisella Porter Work Phone: [facility] 09-01-2020 COVID-19 mRNA-1273 (Moderna) MD Gisella Porter Work Phone: [facility] 08-03-2020 COVID-19 mRNA-1273 (Moderna) MD Gisella Porter Work Phone: [facility] 04-02-2020 influenza virus vaccine, unspecified formulation Funmilayo Odell MD Work Phone: [facility] Payers Date Payer Category Payer Self-pay [id number] 2022 Private Health Insurance [facility] AARP SUPPLEMENT [id number] 2022-Present [phone] [address] [place] [address] Indemnity [id number] 2010 Medicare MEDICARE MEDICAR E A AND B [id number] 2010-Present [phone] [place] [address] Medicare [id number] 1959 Medicare [id number] 1959 Unknown [id number] 1945 Unknown [id number] 1945 Unknown [id number] 1945 Unknown [id number] 1945 Unknown [id number] 1945 Unknown [id number] 1945 Unknown [id number] 1945 Unknown [id number] Unknown [id number] Unknown [id number] Social History Date Type Detail Facility Unknown if ever smoked [employer] Other Start: 10-27-2022 End: 02-28-2024 Sex Assigned At [employer] Other Start: 12-20-2021 End: 09-21-2022 Tobacco smoking status NHIS Never smoked tobacco (finding) [facility] Start: 1945 Sex Assigned At Female [facility] Start: 10-27-2022 Tobacco use and exposure Smokeless tobacco non-user [facility] Start: 10-27-2022 End: 02-28-2024 Alcohol intake Lifetime non-drinker (finding) [facility] Start: 1945 Sex Assigned At Not on file [facility] Start: 10-27-2022 End: 02-28-2024 History of Social function [facility] National Score (1-10 0), lower number is lower risk 53 [facility] Start: 02-27-2024 Gender identity Identifies as female gender (finding) [facility] Start: 02-27-2024 Sexual orientation Heterosexual (finding) [facility] Medical Equipment Procedure Code Equipment Code Equipment Origin al Text Equipment Identifier Dates Arthroplasty, knee, total, minimally invasive Orthopaedic cement, non-medicated [id number] FDA Start: 12-20-2021 Arthroplasty, knee, total, minimally invasive Uncoated knee femur prosthesis ()[id number] FDA Start: 12-20-2021 Arthroplasty, knee, total, minimally invasive Tibial insert ()[id number] FDA Start: 12-20-2021 Arthroplasty, knee, total, minimally invasive Uncoated knee tibia prosthesis, metallic ()[id number] FDA Start: 12-20-2021 Arthroplasty, knee, total, minimally invasive Polyethylene patella prosthesis ()[id number] FDA Start: 12-20-2021 Goals Date Patient Goal Desired Activity /State Clinical Notes 04-20-2021 to 03-19-2024 Zaida Soriano PA-C - 02/28/2024 2:26 PM Zaida Linares PA-C - 02/28/2024 2:26 PM EDTPatient Funmilayo Hobbs MD - 02/23/2024 2:40 PM Funmilayo Gallegos MD - 11/03/2023 2:40 PM EDT Note Date & Type Note Facility 03-19-2024 Note HNO ID: [id number] Author: JULIANA BENITES APRN.KENNEL MANAGER DOG TRACK Service: Anesthesiology Author Type: Nurse Inspector Technician Type: Anesthesia Procedure Notes Filed: 03/19/2024 08:01 Note Text: ANESTHESIOLOGY PROCEDURE NOTE Airway General Information Procedure Start Time/Medication Administration: 03/19/2024 7:43 AM Procedure End Time: 03/19/2024 7:04 AM Patient location during procedure: OR Staffing KENNEL MANAGER DOG TRACK: Juliana Benites APRN.KENNEL MANAGER DOG TRACK Performed by: KENNEL MANAGER DOG TRACK Indications and Patient Condition Indications for airway [...] 1 Airway not difficult SIGNATURE: Juliana Benites APRN.KENNEL MANAGER DOG TRACK PATIENT NAME: Billie Yeboah DATE: March 19, 2024 TIME: 8:01 AM CSN: [id number] [facility] 02-28-2024 History and physical note Images [facility] but [facility] either [facility] or [facility]. Faxing for records for comparison. Checking CBC, [...] hands, unspecified osteoarthritis type Follows with outside auto polisher. On daily Etodolac and has Tramadol for [...] 35 kg/m^2 Non-male patient STOP-Bang Score: 1 [id number] Score: [id number] Score: 0 ANESTHESIA FINDINGS: Intubation History: No [...] mg tablet ECG COMPLETE Faxed release to [facility] 02/28/2024 for Last EKG, need for comparison. - Received EKG's done : 11/12/21 - Sinus tachycardia 100 bpm, low QRS voltage 10/22/13 - SR with poor wave progression and low QRS voltages in precordial leads. REASON FOR VISIT: Billie Yeboah is a 78 year old female who is scheduled for EXCISION RECTAL PROCIDENTIA W/ ANASTOMOSIS COLONOSCOPY at the request of Dr. Funmialyo Odell for consultation. My final recommendation will [...] fevers. Neuro: No history of TIA's, stroke, MEDICAL REGISTRAR tumor, impaired sensorium, hemiplegia, paraplegia or quadraplegia. [...] ALLERGIES Allergen Reactions Ciprofloxacin Rash, Unknown Nitrofurantoin [place]* Other: See Comments, GI Upset Sulfamethoxazole-Tr* Other: [...] DATE: 02/28/2024 TIME: 2:26 PM PAGER/CONTACT #: [facility] 02-28-2024 History and physical note Images from [facility] but [facility] at either [facility] or [facility]. Faxing for records for comparison. Checking CBC, [...] hands, unspecified osteoarthritis type Follows with outside auto polisher. On daily Etodolac and has Tramadol for [...] 35 kg/m^2 Non-male patient STOP-Bang Score: 1 [id number] Score: [id number] Score: 0 ANESTHESIA FINDINGS: Intubation History: No [...] mg tablet ECG COMPLETE Faxed release to [facility] 02/28/2024 for Last EKG, need [...] fevers. Neuro: No history of TIA's, stroke, MEDICAL REGISTRAR tumor, impaired sensorium, hemiplegia, paraplegia or quadraplegia. [...] ALLERGIES Allergen Reactions Ciprofloxacin Rash, Unknown Nitrofurantoin [place]* Other: See Comments, GI Upset Sulfamethoxazole-Tr* Other: [...] PM PAGER/CONTACT #: documented in this encounter [facility] 02-27-2024 Instructions Zaida Soriano PA-C - 02/27/2024 12:07 PM EDT Images from the original note were not included. [facility] PATIENT PREOPERATIVE INSTRUCTIONS Testing that needs completed prior to surgery: - Lab work ordered today, recommend completing today at Outpatient Lab Funmilayo Odell MD has scheduled you for your procedure at this surgery center: [facility]: [phone] --[address] [place] [address]. Please enter through the entrance closest to [...] Procedures: - YOU MUST HAVE A RESPONSIBLE DISTILLATION OPERATOR TAKE YOU HOME. A PRESTO LOG OPERATOR OR NURSE CLINICIAN CANNOT BE MADE A RESPONSIBLE DISTILLATION OPERATOR. - We recommend that a responsible person [...] Advance Directive, please fax a copy to [phone] or email to for it to be [...] Zaida Soriano PA-C documented in this encounter [facility] 02-23-2024 History of Presen t illness Narrative COLORECTAL SURGERY February 23, 2024 Billie Goodther [...] ALLERGIES Allergen Reactions Ciprofloxacin Rash, Unknown Nitrofurantoin [place]* Other: See Comments, GI Upset Sulfamethoxazole-Tr* Other: [...] exam reveals no gross blood or masses Vacuum Metalizing Supervisor present: Yes, Sarah Z Anoscopy: The patient [...] MD Colorectal Surgery documented in this encounter [facility] 02-23-2024 Note HNO ID: [id number] Author: FUNMILAYO ODELL MD Service: ? Author [...] ALLERGIES Allergen Reactions Ciprofloxacin Rash, Unknown Nitrofurantoin [place]* Other: See Comments, GI Upset Sulfamethoxazole-Tr* Other: [...] exam reveals no gross blood or masses Vacuum Metalizing Supervisor present: Yes, Sarah Z Anoscopy: The patient [...] treatment plan: nyla Odell MD Colorectal Surgery [facility] 11-03-2023 History of Presen t illness Narrative COLORECTAL SURGERY November 03, 2023 Billie Yeboah 78 year old This consult was requested by Dr. Forbes and my final recommendations will be communicated to the requesting health care provider by way of the shared medical record for internal providers or letter via the [employer] for external providers. Chief Complaint: [...] ALLERGIES Allergen Reactions Ciprofloxacin Rash, Unknown Nitrofurantoin [place]* Other: See Comments, GI Upset Sulfamethoxazole-Tr* Other: [...] has a weak squeeze and discoordinated push Vacuum Metalizing Supervisor present: Yes, Sarah Z Anoscopy: The patient [...] MD Colorectal Surgery documented in this encounter [facility] 11-03-2023 Note HNO ID: [id number] Author: FUNMILAYO ODELL MD Service: ? Author Type: Physician Type: Progress Notes Filed: 11/03/2023 14:59 Note Text: COLORECTAL SURGERY November 03, 2023 Billie Yeboah 78 year old This consult was requested by Dr. Forbes and my final recommendations will be communicated to the requesting health care provider by way of the shared medical record for internal providers or letter via the [employer] for external providers. Chief Complaint: [...] ALLERGIES Allergen Reactions Ciprofloxacin Rash, Unknown Nitrofurantoin [place]* Other: See Comments, GI Upset Sulfamethoxazole-Tr* Other: [...] has a weak squeeze and discoordinated push Vacuum Metalizing Supervisor present: Yes, Sarah Z Anoscopy: The patient [...] treatment plan: nyla Odell MD Colorectal Surgery [facility] 11-03-2023 Nurse Note What is the reason for your visit today? BRBPR, hemorrhoids Who is your referring physician? Dr. Forbes Are you having poor oral intake? NO Have you had unintentional weight loss of 15 lbs/7 Kg in the last 3-6 months? NO Bowels: regular, bleeding with and without BMs, discharge, brown/green in color Wound: Temperature: No Drains: No [facility] 11-03-2023 Nurse Note What is the reason for your visit today? BRBPR, hemorrhoids Who is your referring physician? Dr. Forbes Are you having poor oral intake? NO Have you had unintentional weight loss of 15 lbs/7 Kg in the last 3-6 months? NO Bowels: regular, bleeding with and without BMs, discharge, brown/green in color Wound: Temperature: No Drains: No documented in this encounter [facility] 10-11-2023 Miscellaneous Notes Appointment with Dr. Odell is scheduled. Referral Scanned in for Dr. Odell, called pt and LVM, awaiting call back to schedule. documented in this encounter [facility] 04-10-2023 Evaluation note Encounter Date Diagnosis Assessment Notes Mar, IBS (irritable bowel syndrome) (ICD-10 - K58.9) [employer] Other 07-12-2023 Evaluation note* Encounter Date Diagnosis Assessment Notes Treatment Notes Treatment Clinical Notes Dec, Primary osteoarthrit is of first carpometacarpal joint of left hand (ICD-10 - M18.12) Progress as tolerated Discussed DIP fusions Dec, Trigger ring finger of left hand (ICD-10 - M65.342) Dec, Left hand pain (ICD- 10 - M79.642) [employer] Other 06-14-2023 Evaluation note* Encounter Date Diagnosis [...] Left hand pain (ICD- 10 - M79.642) [employer] Other 05-04-2023 History of Present illness Narrative* Funmilayo Odell MD - 10/27/2022 2:00 PM EDT COLORECTAL SURGERY October 27, 2022 Billie Yeboah 77 year old This consult was requested by Dr. Manoj Forbes and my final recommendations will be communicated to the requesting health care provider by way of the shared medical record for internal providers or letter via the [employer] for external providers. Chief Complaint: [...] exam reveals no gross blood or masses Vacuum Metalizing Supervisor present: Yes, Maribell Joiner Anoscopy: The patient [...] Odell MD [facility] Note* Maribell Joiner RN - 10/27/2022 [...] Temperature: No Drains: No [facility] note* Encounter Date Diagnosis Assessment Notes Treatment Notes Treatment Clinical Notes Aug, Hemorrhoids (ICD-10 - K64.9) [employer] Other [facility]-29-2023 [facility]* Encounter Date Diagnosis Assessment Notes Treatment Notes Treatment Clinical Notes Jul, IBS (irritable bowel syndrome) (ICD-10 - K58.9) [employer] Other 01-12-2023 NotePROCEDURE: XR HAND RT MIN [...] Electronically authenticated by: VIDYA CHAUDHARY Date: 2022-07-07 12:06[facility]10-10-[facility] Evaluation note* Encounter Date Diagnosis Assessment Notes Treatment Notes Treatment Clinical Notes Mar, IBS (irritable bowel syndrome) (ICD-10 - K58.9) [employer] Other 08-10-2022 Evaluation note* Encounter Date Diagnosis Assessment Notes Treatment Notes Treatment Clinical Notes Jan, Primary osteoarthritis of right knee (ICD-10 - M17.11) Jan, History of total right knee replacement (ICD-10 - Z96.651) Jan, Age-related osteoporosis without current pathological fracture (ICD-10 - M81.0) Jan, 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 The stitch that popped up in the proximal aspect the incision was removed. Patient tolerated this well. Patient may continue activities as tolerated. Recommended continuing physical therapy not only for her knee but also for greater trochanteric bursitis. Continue taking ufji-ymm-jqcasam anti-inflammatories as needed for assistance with swelling and pain associated with the operative extremity. I have also prescribed her some iron and vitamin C in the event that she did have some low postoperative hemoglobin. Follow-up in 6 weeks for repeat examination and long standing x-rays. 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 Zipline was [...] 3 view x-rays of the right knee. [employer] Other 06-17-2022 Evaluation note* Encounter Date Diagnosis [...] patient could proceed with surgery safely. The project manager senior was vital for surgery timing and scheduling [...] plans. Prolonged services time spent: 32 minutes [employer] Other 06-17-2022 Evaluation note* Encounter Date Diagnosis Assessment Notes Treatment Notes Treatment Clinical Notes Nov, Primary osteoarthritis of right knee (ICD-10 - M17.11) [employer] Other 06-08-2022 Evaluation note* Encounter Date Diagnosis Assessment Notes Treatment Notes Treatment Clinical Notes Nov, Age-related osteoporosis without current pathological fracture (ICD-10 - M81.0) Nov, Primary osteoarthritis of right knee (ICD-10 - M17.11) Nov, Other jail (current) drug therapy (ICD-10 - Z79.899) Nov, [...] replaced previously. Joints Meeting Checklist - Pharmacy: [facility] - Approach/Technique: [place] - Implants: Persona; - [...] for 4 to 5 years per her auto polisher, Dr. Maldonado. All questions were answered after [...] elected to proceed with the above surgery. 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 [employer] Other 02-18-2022 Evaluation note* Encounter Date Diagnosis [...] injection well. 6. Follow up 3 months [employer] Other 10-26-2021 Evaluation note* Encounter Date Diagnosis Assessment Notes Treatment Notes Treatment Clinical Notes Mar, IBS (irritable bowel syndrome) (ICD-10 - K58.9) Colonoscopy Follow up in 1 year Mar, Special screening for malignant neoplasms, colon (ICD-10 - Z12.11) [employer] Other Evaluation noteNo assessment information available [facility] Work Phone: Evaluation note* Diagnosis Hemorrhoids, unspecified hemorrhoid type- Primary [facility] Diagnosis BRBPR (bright red blood per rectum)- Primary Hemorrhage of rectum and anus Hemorrhoids, unspecified hemorrhoid type Pelvic floor dysfunction Pelvic muscle wasting [facility] Diagnosis Hemorrhoids, unspecified hemorrhoid type- Primary documented in this encounter [facility] note* Diagnosis Preoperative examination- Primary Preoperative [...] anus Rectal prolapse [facility] Author Manoj Forbes [facility] September 21, 2022 10:51am Note Date/Time September 21, 2022 10: 51am [facility] EN[facility] [address] [place] [address] Gastroenterology H&P Signed Patient: Billie Yeboah MR#: [id number] : 1945 Acct:[id number] Age/Sex: 77 / F Adm Date: 3 Loc: Room: Type: [facility] Attending Dr: Manoj Forbes MD [...] signed by Manoj Forbes MD> 09/21/22 1051 [facility] Work Phone: History general Narrative - Reported* Type Description Date Surgical History THYROID Surgical History LEFT KNEE REPLAEMENT Surgical History HYSTERECTOMY Surgical History BILATERAL FOOT SURGERY Surgical History HIP REPLACEMENT RIGHT Hospitalization History Stomach pains 1 night [employer] Other History general Narrative - Reported* Type Description Date Medical History Arthritis Medical History IBS Medical History thyroid disease Medical History high cholesterol Surgical History THYROID Surgical History LEFT KNEE REPLAEMENT Surgical History HYSTERECTOMY Surgical History BILATERAL FOOT SURGERY Surgical History HIP REPLACEMENT RIGHT Hospitalization History Stomach pains 1 night [employer] Other Hospital Discharge instructions Additional Instructions DISCHARGE [...] problems. -Follow up with PCP. -Office number [phone].[facility] Work Phone: Reason for referral (narrative)* Reason *FU 09/30 Consult for hemorrhoids. Referral faxed to Dr. Odell Diagnosis 1 Hemorrhoids (K64.9) Referral Organization [facility] Gastroenterolo gy Referring Provider First Name Manoj Referring Provider Last Name Leidy Referring Provider Specialty Gastroenter ology Referred Organization [facility] Referred Provider FUNMILAYO ODELL Referred Address [address] [place], [place],[address] Referred Provider Specialty Colorectal S urgery Referral Priority Routine General Notes Juliana De Guzman 0 09/23/2022 10:05:39 AM > Referral faxed by office. [employer] Other [employer] for referral (narrative)* Outpatient Procedure (Routine) - New Request Specialty Diagnoses / Procedures Referred By Contjacquelyn t Referred To [facility] Diagnoses Preoperative examination Tachycardia Procedures ECG COMPLETE ECG ROUTINE ECG W/LEAST 12 LDS W/I&R Zaida Soriano PA-C [address] [place] [address] [facility] [address] [place] [id number] Referral ID Status Reason Start Date Expiration Date Visits Requested Visits Authorized [id number] New Request Auto-Generat ed Referral 02/28/2024 02/27/2025 1 1 [facility] Chief Complaint and Reason for Visit Chief [...] HIGH COMPLEX [address] [place] [address] [facility] [address] [place] [address] [facility] [address] [address] Referral ID Status Reason Start Date Expiration Date Visits Requested Visits Authorized [id number] Pending Review PCP Requested Referral Auto-Generate d [...] Active Manoj Forbes MD Attending Provider Active Communication Equipment Repairer Relationship Specialty Start Date End Date GeovannaNito avelar [address] [place] [address] PCP - General 10/11/00 Team Status: Inactive Member Role Status Dates Gisella Porter MD Primary Care Provider Active Ivette Taylor MD Attending Provider Active Communication Equipment Repairer Relationship Specialty Start Date End Date Screven, Nito [address] [place] [address] PCP - General 10/11/00 Communication Equipment Repairer Relationship Specialty Start Date End Date Geovanna, Nito [address] [place] [address] PCP - General 10/11/00 Communication Equipment Repairer Relationship Specialty Start Date End Date Screven, Nito [address] [place] [address] PCP - General 10/11/00 Communication Equipment Repairer Relationship Specialty Start Date End Date Geovanna, Nito [address] [place] [address] PCP - General 10/11/00 02/28/24 [place] [address] [place] [address] PCP - General Family Medicine 02/29/24 Team Status: Inactive Member Role Status Dates Gisella Porter MD Primary Care Provider Active Start: April 01, 2024 End: April 01, 2024 Manoj Forbes MD Attending Provider Active S tart: April 01, 2024 End: April 01, 2024 INFORMATION SOURCE (unrecogn ized section and content) DATE CREATED AUTHOR 08/30/2022 [facility] DATE CREATED AUTHOR AUTHOR'S ORGANIZ ATION 02/25/2024 [facility] DATE CREATED AUTHOR AUTHOR'S ORGANIZ ATION 03/21/2024 [facility] DATE CREATED AUTHOR AUTHOR'S ORGANIZ ATION 06/22/2024 [facility] Source Comments (unrecognize d section and content) In the event this informatio n is protected by the Federal Confidentiality of Alcohol and Drug Abuse Patient Records regulations: The Federal rules restrict any use of the information to criminally investigate or prosecute any alcohol or drug abuse patient.[facility] the event this information is protected by the Federal Confidentiality of Alcohol and Drug Abuse Patient Records regulations: The Federal rules restrict any use of the information to criminally investigate or prosecute any alcohol or drug abuse patient.[facility] the event this information is protected by the Federal Confidentiality of Alcohol and Drug Abuse Patient Records regulations: The Federal rules restrict any use of the information to criminally investigate or prosecute any alcohol or drug abuse patient.[facility] the event this information is protected by the Federal Confidentiality of Alcohol and Drug Abuse Patient Records regulations: The Federal rules restrict any use of the information to criminally investigate or prosecute any alcohol or drug abuse patient.[facility] the event this information is protected by the Federal Confidentiality of Alcohol and Drug Abuse Patient Records regulations: The Federal rules restrict any use of the information to criminally investigate or prosecute any alcohol or drug abuse patient.[facility] Goals (unrecognized section and content) Goals may [...] BE BASED ON THE PRIMARY CLINICAL RECORDS. [facility] [employer] [facility]. provides no warranty or guarantee of the accuracy or completeness of information in this document.
--- NOTE | 2024-06-23 16:45 | XR_ITS ---
The [address] [address] Patient Name: YORDY DREW MRN: [id number] date: 1945 Sex: F Assigned Patient Location: ER Current Patient Location: ER Accession/Order Number: [id number] Exam Date: 06/23/2024 17:06 Report Date: 06/23/2024 17:53 At the request of: AGA GUILLORY Procedure: XR chest 2V Exam: Radiographs: XR chest 2V Reason for exam: cough Comparison: None XR/XR chest 2V IMPRESSION: Minimal scarring in the right lower lung. Chest is otherwise unremarkable. Electronically authenticated by: ARACELI RUANO Date: 06/23/2024 17:53
--- NOTE | 2024-06-23 17:01 | ED.GENADUL1 ---
HPI HPI - General Adult General Chief complaint: Upper Respiratory Infection Stated complaint: SOB Time Seen by Provider: 06/23/24 16:55 Source: patient and family Mode of arrival: walk-in History of Present Illness HPI narrative: This patient here with her daughter and complaining of cough fever off and on for the last 48 hours. Clear sputum and clear runny nose. No nausea vomiting or diarrhea. No urinary symptoms such as frequency urgency or dysuria. No skin rash. No severe aches pains myalgias or arthralgias. She does not have any underlying pulmonary disease such as COPD or asthma. Denies any heaviness or pressure in the chest. She took an antibiotic previously for similar symptoms and never really got better. She has not had any outpatient evaluation. Related Data Previous Rx's ?Medication ?Instructions ?Recorded orphenadrine citrate 100 mg 100 mg PO ONCE PRN muscle spasm 04/13/24 tablet,extended release #10 tabs Allergies Allergy/AdvReac Type Severity Reaction Status Date / Time ciprofloxacin Allergy Intermediate Hives Verified 04/13/24 09:26 nitrofurantoin (From Allergy Intermediate Hives Verified 04/13/24 09:26 Macrobid) sulfamethoxazole (From Allergy Intermediate Hives Verified 04/13/24 09:26 Bactrim) trimethoprim (From Bactrim) Allergy Intermediate Hives Verified 04/13/24 09:26 Opioid HPI Opioid Management Most Recent Opioid Data: Last Pain Scale 10 04/13/24 09:47 04/13/24 PFSH PFSH Social History Little interest or pleasure in doing things: not at all Feeling down, depressed, or hopeless: not at all Exam Narrative Exam Narrative: Very pleasant 78-year-old appears in no distress. Her pulse symmetry is patient's oriented x 3 excellent historian. Her pulse oximetry is 91% on room air with a respiratory rate of 16. She has intermittent rales and rhonchi bilaterally on auscultation noted on both the left and the right side. l heart rate and rhythm show tachycardia. I do not hear a murmur. Lower extremities show no evidence of swelling edema phlebitis ropiness or tenderness. HEENT shows no conjunctivitis. Her oropharynx is normal. Neck is soft and supple there is no meningeal irritation. Her does not have a runny nose. She is not wheezing Constitutional Vital Signs, click to edit/add: Last Vital Signs Temp 98.6 F 06/23/24 16:36 Pulse 105 H 06/23/24 17:37 Resp 16 06/23/24 16:36 BP 113/71 06/23/24 16:36 Pulse Ox 95 06/23/24 17:37 O2 Del Method Nasal Cannula 06/23/24 17:37 O2 Flow Rate 2 06/23/24 17:37 Course Vital Signs Vital signs: Vital Signs Temperature 98.6 F 06/23/24 16:36 Pulse Rate 121 H 06/23/24 16:36 Respiratory Rate 16 06/23/24 16:36 Blood Pressure 113/71 06/23/24 16:36 Pulse Oximetry 91 L 06/23/24 16:36 Oxygen Delivery Method Room Air 06/23/24 16:36 Temperature 98.6 F 06/23/24 16:36 Pulse Rate 105 H 06/23/24 17:37 Respiratory Rate 16 06/23/24 16:36 Blood Pressure 113/71 06/23/24 16:36 Pulse Oximetry 95 06/23/24 17:37 Oxygen Delivery Method Nasal Cannula 06/23/24 17:37 Oxygen Delivery Flow Rate 2 06/23/24 17:37 Medical Decision Making MDM Narrative Medical decision making narrative: This x-ray does not show any acute infiltrates. However her influenza testing is positive and that is consistent with her clinical history and examination. He does not appear acutely ill. Her potassium slightly low at 3.3 so we will give her some oral potassium here. Findings were discussed with the family. Her cardiac workup including troponin are normal. She did not get the influenza vaccine this year. She has a support of the family at home. She also has a appointment to see her family doctor on Monday. Lab Data Labs: Lab Results 06/23/24 06/23/24 Range/Units 16:43 17:23 WBC 6.3 (4.0-11.0) 10^3/uL RBC 4.07 L (4.20-5.40) 10^6/uL Hgb 12.3 (12.0-16.0) g/dL Hct 35.9 L (36.0-48.0) % MCV 88.2 (81.0-99.0) fL MCH 30.2 (26.7-34.0) pg MCHC 34.3 (29.9-35.2) g/dL RDW 12.3 (11.0-15.0) % Plt Count 310 (150-450) 10^3/uL MPV 9.3 L (9.5-13.5) fL Sodium 135 L (136-145) mmol/L Potassium 3.3 L (3.5-5.1) mmol/L Chloride 101 (98-107) mmol/L Carbon Dioxide 27.0 (21.0-32.0) mmol/L Anion Gap 10.3 BUN 6.0 L (7.0-18.0) mg/dL Creatinine 1.02 (0.55-1.02) mg/dL Est GFR ( Amer) >60 (>=60 mL/min/1.73m^2) Est GFR (Non-Af Amer) 52 L (>=60 mL/min/1.73m^2) BUN/Creatinine Ratio 5.9 Glucose 116 H (74-106) mg/dL Lactate 1.2 (0.4-2.0) mmol/L Calcium 8.8 (8.5-10.1) mg/dL Total Bilirubin 0.5 (0.2-1.0) mg/dL AST 19 (15-37) U/L ALT 14 (14-59) U/L Alkaline Phosphatase 80 (46-116) U/L Troponin I High Sens 18.6 (4.0-51.3) pg/mL NT-Pro-B Natriuret Pep 891.0 (<=1800.0) pg/mL Total Protein 7.3 (6.4-8.2) g/dL Albumin 2.9 L (3.4-5.0) g/dL Globulin 4.4 g/dL Albumin/Globulin Ratio 0.7 Influenza Type A Ag Positive A Influenza Type B Ag Negative RSV Antigen Not detected (NOT DETECTE) SARS-CoV-2 Ag (CV2AG) Negative (NEGATIVE) Discharge Plan Discharge Chief Complaint: Upper Respiratory Infection Clinical Impression: Influenza Patient Disposition: Home, Self-Care Time of Disposition Decision: 18:18 Prescriptions / Home Meds: No Action orphenadrine citrate 100 mg tablet extended release 100 mg PO ONCE PRN (Reason: muscle spasm) Qty: 10 0RF Print Language: Vincentian Additional Instructions: Complete rest, plenty of fluids. See family doctor on Monday. Return to ER if worsening Referrals: Eric Porter MD [Primary Care Provider] - 1 week
--- NOTE | 2024-06-23 17:20 | ECG_ITS ---
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
[2024-06-23 17:37] VITALS: PULSE 105; O2SAT 95
[2024-06-23 17:39] LABS: Hematocrit 35.9 % (36.0-48.0); Hemoglobin 12.3 g/dL (12.0-16.0); Mean Corpuscular HGB Conc 34.3 g/dL (29.9-35.2); Mean Corpuscular Hemoglobin 30.2 pg (26.7-34.0); Mean Corpuscular Volume 88.2 fL (81.0-99.0); Mean Platelet Volume 9.3 fL (9.5-13.5); Platelet Count 310 10^3/uL (150-450); Red Blood Count 4.07 10^6/uL (4.20-5.40); Red Cell Distribution Width 12.3 % (11.0-15.0); White Blood Count 6.3 10^3/uL (4.0-11.0)
[2024-06-23 17:41] LABS: Influenza Virus A Antigen Positive; Influenza Virus B Antigen Negative; Internal Control Within Normal Limits; SARS-CoV-2 Ag NEGATIVE (NEGATIVE)
[2024-06-23] MEDS: IPRATROPIUM/ALBUTEROL SULFATE 3 ML AMPUL.NEB IH (17:41)
[2024-06-23 17:42] LABS: Internal Control Within Normal Limits; Respiratory Syncytial Virus Not Detected (NOT DETECTE)
[2024-06-23] MEDS: 0.9 % SODIUM CHLORIDE 1,000 ML 999 ML IV (17:56)
[2024-06-23 18:03] LABS: Lactate/Lactic Acid 1.2 mmol/L (0.4-2.0)
[2024-06-23 18:07] LABS: Troponin I High Sensitivity 18.6 pg/mL (4.0-51.3)
[2024-06-23 18:09] LABS: Alanine Aminotransferase 14 U/L (14-59); Albumin Globulin Ratio 0.7; Albumin Level 2.9 g/dL (3.4-5.0); Alkaline Phosphatase 80 U/L (46-116); Anion Gap 10.3; Aspartate Amino Transferase 19 U/L (15-37); BUN Creatinine Ratio 5.9; Bilirubin Total 0.5 mg/dL (0.2-1.0); Calcium 8.8 mg/dL (8.5-10.1); Chloride 101 mmol/L (98-107); Estimated GFR (African America >60 (>=60 mL/min/1.73m^2); Estimated GFR (Non-African Ame 52 (>=60 mL/min/1.73m^2); Globulin 4.4 g/dL; Glucose 116 mg/dL (74-106); Potassium 3.3 mmol/L (3.5-5.1); Sodium 135 mmol/L (136-145); Total Protein 7.3 g/dL (6.4-8.2)
[2024-06-23 18:17] LABS: Lymphocytes Absolute Manual 1.63 10^3/uL (1.20-3.80); Segmented Neut Absolute Manual 4.15 10^3/uL (1.4-6.5)
[2024-06-23] MEDS: POTASSIUM CHLORIDE 10 MEQ ER TABLET 20 MEQ PO (18:59)
== END 2024-06-23 19:05 | disposition home or self-care (01) ==
PROVIDERS: Emergency Provider Emergency Medicine Emergency Medical Services; PCP Family Medicine
DX: J10.1 Influenza due to other identified influenza virus with other respiratory manifestations (principal); E87.6 Hypokalemia; R06.02 Shortness of breath
CPT/HCPCS: 36415; 71046; 80053; 83605; 83880; 84484; 85007; 85027; 87420; 87804; 87811; 93005; 94640; 99285

== ENCOUNTER 2024-07-10 10:40 | Outpatient (OUT) | payer MEDICARE, SELFPAY ==
[2024-07-10 11:39] LABS: Free T3 4.06 pg/mL (2.18-3.98); Thyroid Stimulating Hormone 0.404 uIU/mL (0.358-3.740)
== END 2024-07-10 10:41 | disposition home or self-care (01) ==
LOC: LAB 10:42
PROVIDERS: PCP Family Medicine; Visit Provider Family Medicine
DX: E03.9 Hypothyroidism, unspecified (principal)
CPT/HCPCS: 36415; 84436; 84443; 84481

== ENCOUNTER 2024-09-04 10:12 | Outpatient (OUT) | payer MEDICARE, SELFPAY ==
--- NOTE | 2024-09-04 10:19 | XR_ITS ---
The [address] [address] Patient Name: YORDY DREW MRN: [id number] date: 1945 Sex: F Assigned Patient Location: [place] Current Patient Location: [place] Accession/Order Number: [id number] Exam Date: 09/04/2024 17:57 Report Date: 09/04/2024 17:59 At the request of: GISELLA CHAMORRO MD Procedure: XR foot LT min 3V 3 views left foot plain film COMPARISON:None HISTORY: Left foot edema for one week. No injury ACUTE FINDINGS: None DEGENERATIVE CHANGE: Suspect Charcot type changes of the midfoot. Posterior and inferior calcaneal spurring. SOFT TISSUE FINDINGS: Mild soft tissue swelling. No subcutaneous air. No radiodense foreign body. JOINT EFFUSION: None POSTOP CHANGES: None BONE MINERALIZATION: Adequate XR/XR foot LT min 3V IMPRESSION: Extensive midfoot degenerative/Charcot changes. No acute bony findings. The calcaneal spurring. Impression dictated by: Lg Lua M.D.09/04/2024 5:59 PM Dictation Location: [place] [address] Electronically authenticated by: [id number] Y Date: 09/04/2024 17:59
--- OUTSIDE RECORDS SUMMARY | 2024-09-04 10:21 | XMS_ITS | CCD ---
Author Organization [facility] CliniSyar Care Team Providers Care Air Hoist Operator Name Role Phone Manoj Forbes Unavailable Sydney Oswald II Unavailable MD Gisella Chamorro Primary Care Provider [phone] MD Sydney Oswald II Attending Provider MD Gisella Chamorro Primary Care Provider [phone] MD Sydney Oswald II Attending Provider KENC, DR HOOVER Admitting Unavailable MISC, DR HOOVER Attending Unavailable HOY ., DR OBANDO Primary Care Unavailable MISC, DR HOOVER Consulting Unavailable HOY ., DR OBANDO Admitting Unavailable HOY ., DR OBANDO Attending Unavailable HOY ., DR OBANDO Primary Care Unavailable HOY ., DR OBANDO Consulting Unavailable JET, DR VIDYA Strong Consulting Unavailable HOY ., DR OBANDO Admitting Unavailable HOY ., DR OBANDO Attending Unavailable HOY ., DR OBANDO Primary Care Unavailable HOY ., DR OBANDO Consulting Unavailable HOY ., DR OBANDO Admitting Unavailable HOY ., DR OBANDO Attending Unavailable HOY ., DR OBANDO Primary Care Unavailable HOY ., DR OBANDO Consulting Unavailable HARDIN, DR FUNMILAYO Ramirez Consulting Unavailable TYRONE, DR LONDON Attending Unavailable MISC, DR HOOVER Admitting Unavailable MISC, DR HOOVER Primary Care Unavailable MISC, DR HOOVER Consulting Unavailable SYDNEY OSWADL Admitting Unavailable SYDNEY OSWALD Attending Unavailable HOY ., DR OBANDO Primary Care Unavailable SYDNEY OSWALD Consulting Unavailable MISC, DR HOOVER Admitting Unavailable MISC, DR HOOVER Attending Unavailable GAVINY ., DR OBANDO Primary Care Unavailable MISC, DR HOOVER Consulting Unavailable MD Gisella Chamorro Primary Care Provider [phone] MD Manoj Forbes Attending Provider Daryl Austin Primary Care Provider UnavailMD Ivette Treadwell Attending Provider [phone] MD Gisella Chamorro Primary Care Provider [phone] MD Sydney Oswald II Attending Provider [phone] Ivette Taylor Unavailable PipestoneDaryl avelar Primary Care Provider Unavailabl e Geovanna, Daryl Primary Care Provider Unavailabl e Pipestone, Daryl Primary Care Provider Unavailabl Gisella Han MD Primary Care Provider [phone] FUNMILAYO ODELL Attending Unavailable FUNMILAYO ODELL Admitting Unavailable FUNMILAYO ODELL Referring Unavailable ZAIDA HERNANDEZ Referring Unavailable MD Gisella Chamorro Primary Care Provider [phone] MD Manoj Forbes Attending Provider FUNMILAYO ODELL Attending Unavailable MANOJ FORBES Referring Unavailable FUNMILAYO ODELL Attending Unavailable MANOJ FORBES Referring Unavailable Gisella Chamorro MD Primary Care Provider [phone] Manoj Forbes MD Attending Provider Obermeykeyon [employer], Medina Saleem Attending Provider Gisella Chamorro Primary Care Unavailable Manoj Forbes Attending Unavailable Manoj Forbes Admitting Unavailable Gisella Chamorro Primary Care Unavailable ObMedina zuñiga Attending Unavailable Medina Spears Admitting Unavailable Manoj Forbes Attending Unavailable Manoj Forbes Admitting Unavailable Gisella Chamorro Primary Care Unavailable Allergies Allergy Classification Reported Allergen(s) Allergy Type Date of Onset Reaction(s) Facility (20 sources) Ciprofloxacin; Translations: [CIPROFLOXACIN] Drug Allergy 05-31-20 13 Rash, Unknown [facility] (20 sources) NITROFURANTOIN, MACROCRYSTALS / Nitrofurantoin, Monohydrate Drug Allergy 10-28-19 23 Other: See Comments, GI Upset [facility] (20 sources) Sulfamethoxazole / Trimethoprim Drug Allergy 05-31-20 13 Other: See Comments, Rash [facility] (3 sources) Ciprofloxacin; Translations: [Cipro] Drug Allergy 05-31-20 13 Unknown [facility] (3 sources) Sulfamethoxazole / Trimethoprim; Translations: [Bactrim] Drug Allergy 05-31-20 13 Unknown [facility] (9 sources) Nitrofurantoin; Translations: [nitrofurantoin] Drug Allergy 04-29-20 21 Rash, Rash, vomiting,rash [facility] (9 sources) Sulfamethoxazole; Translations: [sulfamethoxazole] Drug Allergy 04-29-20 21 Rash, Rash, vomiting, rash [facility] (9 sources) Trimethoprim; Translations: [trimethoprim] Drug Allergy 04-29-20 21 Rash, Rash, vomiting, rash [facility] (1 source) Nitrofurantoin Drug Allergy 05-31-20 13 [facility] (2 sources) Sulfamethoxazole / Trimethoprim; Translations: [SULFAMETHOXAZOLE-T RIMETHOPRIM] Drug Allergy 05-31-20 13 [facility] (2 sources) NITROFURANTOIN MONOHYD/M-CRYST; Translations: [NITROFURANTOIN MONOHYD/M-CRYST] Propensity to adverse reactions to drug (disorder) 10-28-19 23 [facility] (1 source) Ciprofloxacin Drug Allergy 06-21-20 24 [facility] Medications Current Medications Medication Drug Class(es) [...] take 1 tablet by mouth once daily in the evening Amitriptyline 50 mg tablet Active 50 MG PO Every evening September 20, 2022 11:00pm Start: 04-29-2021 End: 09-21-2022 take 2 tablets by mouth once daily at bedtime Amitriptyline 25 mg tablet Discontinued 50 MG PO Daily at bedtime April 28, 2021 11:00pm September 21, 2022 9:01am Start: 04-29-2021 End: 09-21-2022 take 50 mg by mouth once daily at bedtime Amitriptyline Discontinued 50 MG PO Daily at bedtime April 29, 2021 12:00am September 21, 2022 10:01am Comment on above: Take 50 mg by mouth once daily. ascorbic acid 500 mg oral tablet (1 source) Vitamin C Start: 022 take 1 tablet by mouth every twenty-four [...] Nov, Active cholecalciferol 0.125 mg oral tablet (13 sources) Vitamin D Start: take 1 tablet by mouth once daily cholecalciferol (VITAMIN D3) 5,000 unit tab Take 5,000 Units by mouth once daily. 04/29/2021 Active Start: 04-29-2021 End: 04-23-2024 take 1 tablet by mouth once daily Cholecalciferol (Vitamin D3) (Vitamin D3) 125 mcg (5,000 unit) Tablet Discontinued 125 MCG PO Daily April 28, 2021 11:00pm April 23, 2024 10:01am Comment on above: Take 5,000 Units by mouth once daily. docusate sodium 50 mg / sennosides, group home 8.6 mg oral tablet (5 sources) Start: 2 take 2 tablets by mouth every twenty-four hours Senokot S 8.6-50 MG 2 tablets Orally Once a day for 30 day(s) MED TO BED UPON DISCHARGE DOS: 12/21/2021 Nov, Active ferrous sulfate 325 mg oral tablet (7 sources) Start: 2 take 1 tablet by mouth every eight hours Iron 325 (65 Fe) MG 1 tablet Orally Three times a day for 30 day(s) Jan, Active levothyroxine sodium 0.112 mg oral tablet (20 sources) l-Thyroxine Start: 1 take 1 tablet by mouth once daily Levothyroxine 112 mcg tablet Active 112 MCG PO Daily April 28, 2021 11:00pm take 1 tablet by kathie th once daily in the morning Levothyroxine Sodium 112 MCG 1 tablet on an empty stomach in the morning Orally Once a day for 30 day(s) Active Comment on above: Take 112 mcg by mout h once daily. mesalamine 1200 mg delayed release oral tablet (3 sources) Aminosalicylate Start: 06-21-20 End: 08-21-19 take 4 tablets by mouth once daily Mesalamine (Lialda) 1.2 gram tablet,delayed release (DR/EC) Active 4.8 GM PO Daily 360 90 August 21, 2024 2:08pm simvastatin 5 mg oral tablet (3 sources) HMG-CoA Reductase Inhibitor Start: 09-21-19 take 1 tablet by mouth once daily Simvastatin 5 mg tablet Active 5 MG PO Daily September 20, 2023 11:00pm traMADol hydrochloride 50 mg oral tablet (20 sources) Opioid Agonist Start: 12-12-19 traMADol (ULTRAM) 50 mg tablet as needed for pain. 12/12/2023 Active Start: 12-01-2021 take 1 tablet by kathie th every six hours as needed for pain traMADol HCl 50 MG 1 tablet as needed for pain Orally every 6 hrs for 10 days Dec, Not-Taking Start: 04-29-2021 End: 09-21-2022 take 1 tablet by mouth twice daily as needed for pain Tramadol 50 mg tablet Discontinued 50 MG PO Twice daily as needed for Pain April 28, 2021 11:00pm September 21, 2022 9:01am Tramadol & Dietary Manage Pr od 50 [...] sources) Anticholinergic Start: 01-12-2015 End: 02-20-2024 take 1 tablet by mouth twice daily Dicyclomine 20 mg tablet Discontinued 20 MG PO Twice daily April 28, 2021 11:00pm February 20, 2024 3:32pm Comment on above: Take 20 mg by mouth twice daily. etodolac 500 mg oral tablet (20 sources) Nonsteroidal Anti-inflammatory Drug Start: 04-29-2021 End: 04-23-2024 take 1 tablet by mouth twice daily Etodolac 500 mg tablet Discontinued 500 MG PO Twice daily April 28, 2021 11:00pm April 23, 2024 10:01am Start: 04-29-2021 take 500 mg by mouth once terrance y Etodolac Active 500 MG PO Daily April 29, 2021 12:00am morphine sulfate 15 mg extended release oral tablet (8 sources) Opioid Agonist Start: 12-01-2021 take 1 tablet by mouth every twelve hours for pain Morphine Sulfate ER 15 MG 1 tablet for breakthrough pain only Orally every 12 hrs for 5 days MED TO BED UPON DISCHARGE DOS: 12/21/2021 Nov, Not-Taking omeprazole 20 mg delayed release oral capsule (14 sources) Proton Pump Inhibitor Start: 09-21-2023 End: 04-23-2024 Omeprazole 20 mg capsule,delayed release(DR/EC) Discontinued 20 MG PO Daily December 04, 2023 11:00pm April 23, 2024 10:01am Take 1 capsule orally 30 minutes before morning meal. Start: 04-29-2021 End: 12-07-2021 take 1 capsule by mouth once daily Omeprazole 20 mg capsule,delayed release(DR/EC) Discontinued 20 MG PO Daily April 28, 2021 11:00pm December 07, 2021 12:17pm ondansetron 8 mg oral tablet (8 sources) [...] DOS: 12/21/2021 Nov, Not-Taking polyethylene glycol 3350 93181 mg powder for oral solution (8 sources) Osmotic Laxative Start: 12-01-2021 MiraLax 17 GM 1 packet mixed with 8 ounces of fluid Orally Once a day for 7 days MED TO BED UPON DISCHARGE DOS: 12/21/2021 Nov, Not-Taking rosuvastatin calcium 5 mg oral tablet (20 sources) HMG-CoA Reductase Inhibitor Start: 04-29-2021 End: 09-21-2023 take 1 tablet by mouth once daily at bedtime Rosuvastatin 5 mg tablet Discontinued 5 MG PO Daily at bedtime April 28, 2021 11:00pm September 21, 2023 12:48pm Comment on above: Take 5 mg by mouth o nce daily. Sod Picosulf-Mag Ox-Citric Ac (2 sources) Start: 04-23-2024 End: 05-30-2024 take 1 dose by mouth once daily Sod Picosulf-Mag Ox-Citric Ac (Clenpiq) 10 mg-3.5 gram- 12 gram/175 mL solution Discontinued 175 ML PO Daily 350 0 April 22, 2024 11:00pm May 30, 2024 2:41pm Take first dose at 3pm evening before colonoscopy; second dose at 9 pm night before colonoscopy triamcinolone acetonide 40 mg/ml injectable suspension (19 sources) Corticosteroid Start: 12-07-2022 Kenalog-40 Nov, 20 mg Start: 08-13-2021 Kenalog -40 mg Jul, 120 mg Problems Active Problems Problem Classification Problem Date Documented Da te Episodic/Chronic Anal and rectal conditions (3 sources) Rectal prolapse; Translations: [Rectal prolapse] Onset: 02-28-2024 Episodic Cardiac dysrhythmias (3 sources) Tachycardia; [...] [Hyperlipidemia, unspecified] Onset: 2 Chronic Gastrointestinal hemorrhage (9 sources) Gastrointestinal hemorrhage; Translations: [Hemorrhage of anus and rectum] Onset: 4 10-16-2023 Episodic Hemorrhoids (8 sources) Unspecified hemorrhoids; Translations: [Hemorrhoids] Onset: 4 Episodic Nutritional deficiencies (2 sources) Vitamin D deficiency, unspecified; Translations: [VITAMIN D [...] surgery] Chronic Other aftercare (5 sources) Other alf (current) drug therapy; Translations: [OTH CHILD CAREGIVER CURRENT DRUG THERAPY] Onset: 2 Resolved: 2 Episodic Other aftercare (3 sources) 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; Translations: [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 technician (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) use of non-steroidal anti-inflammatories (NSAID)] 09-21-2023 [...] diarrhea] Onset: 4 Chronic Other gastrointestinal disorders (3 sources) Irritable bowel syndrome characterized by constipation; Translations: [...] LUMP RT UPPER LIMB] Onset: 3 Episodic Regional enteritis and ulcerative colitis (5 sources) Crohn's disease; Translations: [Crohn's disease, unspecified, without complications] 04-23-2024 Chronic Thyroid disorders (4 sources) Hypothyroidism, unspecified; Translations: [...] Results Test Name Value Interpretation Reference Range [facility] 06-21-2024 L Specimen: [id number] Received: 06/21/24 Status: NILSA Christina Num: [id number] Spec Type: Surgical Subm Dr: Manoj Forbes MD Tissues: A Gross Only (DESCENDING COLON BX) B Gross Only (SIGMOID COLON BX) C Gross Only (RECTAL BX) Procedures: Level 1 Gross/3 Comments: PER DR. FORBES SPECIMEN IS TO BE SENT DIRECTLY TO [facility] Age/ Patient Sex Location Account Attending Physician Billie Yeboah 78/F [id number] Manoj Forbes MD SPEC NUM: [id number] RECD: 06/21/24 STATUS: NILSA CHRISTINA NUM: [id number] OMID: 06/21/[address] [facility] [address]: Manoj Forbes MD ENTERED: 06/21/24 [facility] DR: CHRISTOPHER TYPE: Surgical DEPT: S ENTERED BY: [id number] RECV BY: [id number] ORDERED: Level 1 Gross/3 COMMENTS: PER DR. FORBES SPECIMEN IS TO BE SENT DIRECTLY TO [facility] ORDERED: Level 1 Gross/3 COMMENTS: PER DR. FORBES SPECIMEN IS TO BE SENT DIRECTLY TO [facility] Supplemental Report Addendum 1 Entered: 08/02/24 Supplemental for findings of consultation report from [facility] A, -Colonic mucosa with no pathologic diagnostic abnormality; negative for granulomas or dysplasia B, -Chronic minimally active colitis; negative for granulomas or dysplasia C, -Chronic mildly active colitis; negative for granuloma or dysplasia Specimen: [id number] Received: 06/21/24 Status: NILSA Taveras Num: [id number] Spec Type: Surgical Subm Dr: Manoj Forbes MD Tissues: A Gross Only (DESCENDING COLON BX) B Gross Only (SIGMOID COLON BX) C Gross Only (RECTAL BX) Procedures: Level 1 Gross/3 Comments: PER DR. FORBES SPECIMEN IS TO BE SENT DIRECTLY TO [facility] Patient: Billie Yeboah [id number] (Continued) Specimen: [id number] Received: 06/21/24 (Continued) Supplemental Report (Continued) Signed (signature on file) Lashanda Pearce MD 08/02/24 1949 Specimen: [id number] Received: 06/21/24 Status: NILSA Taveras Num: [id number] Spec Type: Surgical Subm Dr: Manoj Forbes MD Tissues: A Gross Only (DESCENDING COLON BX) B Gross Only (SIGMOID COLON BX) C Gross Only (RECTAL BX) Procedures: Level 1 Gross/3 Comments: PER DR. FORBES SPECIMEN IS TO BE SENT DIRECTLY TO [facility] Patient: Billie Yeboah [id number] (Continued) Specimen: [id number] Received: 06/21/24 (Continued) Supplemental Report (Continued) Addendum Signed (signature on file) Maggie Pearce MD 08/02/241951 Pathological Diagnosis A, descending colon biopsy: -Gross only examination. Pending external consultation service B, sigmoid colon biopsy: -Gross only examination. Pending external consultation service C, rectal biopsy: -Gross only examination. Pending external consultation service Clinical Information Colitis. Part A rule out Crohn's and ulcerative colitis. Part B rule out Crohn's, ulcerative colitis, segmental colitis associated with diverticulosis. Part C rule out Crohn's and ulcerative colitis Gross Description Part A is received in formalin labeled with the patients name, date of , and descending colon biopsy are 2 davila-garcia, delicate, 0.3 and 0.6 cm tissue fragments. The specimen is sent to [facility] for analysis. GROSS ONLY-JG Part B is received in formalin labeled with the patients name, date of , and sigmoid colon biopsy are 3 davila-garcia, focally erythematous, friable, 0.2, 0.3 and 0.4 cm tissue bits. The specimen is sent to [facility] for analysis. GROSS ONLY-JG Part C is received in formalin labeled with the patients name, date of , and rectal biopsy are 3 davila-garcia, focally erythematous, friable, 0.2, 0.3 and 0.3 cm tissue bits. GROSS ONLY-JG Specimen: [id number] Received: 06/21/24 Status: NILSA Taveras Num: [id number] Spec Type: Surgical (more content not included)... Normal [facility] SURGICAL PATHOLOGYon 024 CASE REPORT Normal [facility] Comment on above: Order Comment: Speci men Type: TISSUE SPECIMEN Ordering Facility: [facility] Address: [place] [address] Result Comment: Surg [facility] Pathology Report Case: [id number] Authorizing Provider: Manoj Forbes MD Collected: 06/21/2024 09:28 AM Ordering Location: [facility] Main Received: 06/24/2024 12:23 PM [facility] Pathologist: Lizeth Chamberlain MD Specimens: A) - Colon, Biopsy, Descending colon bx r/o Chrons and ulcerative colitis A B) - Colon, Biopsy, Sigmoid colon bx r/o Chron's, ulcerative colitis, SCAD B C) - Rectum, Biopsy, Rectal bx r/o Chron's and ulcerative colitis C Performed By: #### S #### [facility] CLIA [id number] [address] STATES OF [facility] CLIA [id number] [address] [place] [address] STATES OF [place] CLINICAL HISTORY Colitis Normal [facility] Comment on above: Order Comment: Speci men Type: TISSUE SPECIMEN Ordering Facility: [facility] Address: [address] [place] [address] Performed By: #### S #### [facility] CLIA [id number] [place] [address] LAB CLIA [id number] [address] [place] [address] FINAL DIAGNOSIS Normal [facility] Comment on above: Order Comment: Speci men Type: TISSUE SPECIMEN Ordering Facility: [facility] Address: [address] [place] [address] Result Comment: A. C olon, ascending, biopsy: - Colonic mucosa with no pathologic diagnostic abnormality; negative for granulomas or dysplasia. B. Colon, sigmoid, biopsy: - Chronic minimally active colitis; negative for granulomas or dysplasia. C. Rectum, biopsy: - Chronic mildly active colitis; negative for granulomas or dysplasia. Performed By: #### S #### [facility] CLIA [id number] [address] OF [facility] CLIA [id number] [address] [place] [address] OF [place] FINAL PERFORMING LAB Normal [facility] Comment on above: Order Comment: Speci men Type: TISSUE SPECIMEN Ordering Facility: [facility] Address: [address] [place], [place] [address], [place] [address] Result Comment: Diag nostic interpretation performed at [place], [id number] [place] [address] CLIA# [id number] Lead Javascript Developer: Lizeth Chamberlain M.D. Performed By: #### S #### [facility] CLIA [id number] [place] [address] [place] [facility] CLIA [id number] [address] [place] [address] [place] GROSS DESCRIPTION Normal [facility] Comment on above: Order Comment: Speci men Type: TISSUE SPECIMEN Ordering Facility: [facility] Address: [address] [place], [place] [address] [address] Result Comment: A. C olon, Biopsy Received in formalin are two pieces of davila, soft tissue aggregating to 1.1 x 0.3 x 0.2 cm. Totally submitted in one cassette. B. Colon, Biopsy Received in formalin are two pieces of davila, soft tissue aggregating to 0.8 x 0.2 x 0.2 cm. Totally submitted in one cassette. C. Rectum, Biopsy Received in formalin are multiple pieces of davila, soft tissue aggregating to 1.2 x 0.2 x 0.2 cm. Totally submitted in one cassette. June 24, 2024 12:54 PM Gross examination performed at [facility], [address] [place] [address] Performed By: #### S #### [facility] CLIA [id number] [place] [address] [place] [facility] CLIA [id number] [address] [place] [address] [place] Automated basophil %Ordered By: Manoj Forbes on 04-01-2024 Basophils/100 WBC (Bld) 0.6 % Normal . [facility] Comment on above: Performed By: #### C RP, CBC, ESR #### [address] Automated basophil countOrde red By: Manoj Forbes on 04-01-2024 Basophils (Bld) [#/Vol] 0.0 10*3/uL Normal 0.0-0.2 [facility] Comment on above: Performed By: #### C RP, CBC, ESR #### [address] Automated blood monocyte cou ntOrdered By: Manoj Forbes on 04-01-2024 Monocytes (Bld) [#/Vol] 0.5 10*3/uL Normal 0.0-0.8 [facility] Comment on above: Performed By: #### C RP, CBC, ESR #### [address] Automated eosinophil %Ordere d By: Manoj Forbes on 04-01-2024 Eosinophils/100 WBC (Bld) 5.1 % Normal . [facility] Comment on above: Performed By: #### C RP, CBC, ESR #### [address] Automated eosinophil countOr dered By: Manoj Forbes on 04-01-2024 Eosinophils (Bld) [#/Vol] 0.3 10*3/uL Normal 0.0-0.45 [facility] Comment on above: Performed By: #### C RP, CBC, ESR #### [address] Automated monocyte %Ordered By: Manoj Forbes on 04-01-2024 Monocytes/100 WBC (Bld) 9.4 % Normal . [facility] Comment on above: Performed By: #### C RP, CBC, ESR #### [address] Automated neutrophil %Ordere d By: Manoj Forbes on 04-01-2024 Neutrophils/100 WBC (Bld) 68.0 % Normal . [facility] Comment on above: Performed By: #### C RP, CBC, ESR #### [address] C reactive protein [Mass/vol ume] in Serum or PlasmaOrdered By: Manoj Forbes on 04-01-2024 CRP [Mass/Vol] < 0.5 mg/dL 0.0-0.5 [facility] C-Reactive Proteinon 024 CRP [Mass/Vol] mg/L Normal 0.0-0.5 [facility] Comment on above: Result Comment: PERF ORMED BY: [place] [address] PATHOLOGIST SIGHT MOUNTER SE CHEATHAM M.D. Performed By: #### C RP, CBC, ESR #### [address] Calprotectin, Fecalon 2023 Calprotectin, Fecal 238 High 0-120 [facility] Comment on above: Result Comment: Conc entration Interpretation Follow-Up < 5 - 50 ug/g Normal None >50 -120 ug/g Borderline Re-evaluate in 4-6 weeks >120 ug/g Abnormal Repeat as clinically indicated Performed at: - [facility] [address] [id number] Byproducts Maker: Nadeen Gant MD, Phone: [phone] PERFORMED BY: [place] [address] PATHOLOGIST SIGHT MOUNTER SE CHEATHAM M.D. Performed By: #### C ALPROTECT #### [facility] , #### IBD DIAG #### [address] Complete Blood Count Auto Di ffon 04-01-2024 Mean Corpuscular HGB Conc 34.3 g/dL Normal 32.0-35.0 [facility] Comment on above: Performed By: #### C RP, CBC, ESR #### [address] NRBC% 0.1 /100{WBC} Normal 0-0.5 [facility] Comment on above: Performed By: #### C RP, CBC, ESR #### [address] Erythrocyte Sedimentation Ra char 04-01-2024 ESR (Bld) [Velocity] 20 mm/h Normal 0-29 [facility] Comment on above: Result Comment: PERF ORMED BY: [place] [address] PATHOLOGIST SIGHT MOUNTER SE CHEATHAM M.D. Performed By: #### C RP, CBC, ESR #### [address] Erythrocyte distribution wid th [Ratio] by Automated countOrdered By: Manoj Forbes on 04-01-2024 Erythrocyte distribution width (RBC) [Ratio] 13.1 % Normal 11.9-15.3 [facility] Comment on above: Performed By: #### C RP, CBC, ESR #### [address] Erythrocyte sedimentation ra te by Photometric methodOrdered By: Manoj Forbes on 04-01-2024 ESR Photometric method (Bld) [Velocity] 20 mm/hr 0-29 [facility] Erythrocytes [#/volume] in B lood by Automated countOrdered By: Manoj Forbse on 04-01-2024 RBC (Bld) [#/Vol] 4.10 10*6/uL Normal 3.60-5.00 [facility] Comment on above: Performed By: #### C RP, CBC, ESR #### [address] Hematocrit [Volume Fraction] of Blood by Automated countOrdered By: Manoj Forbes on 04-01-2024 Hematocrit (Bld) [Volume fraction] 36.4 % Normal 34.0-46.4 [facility] Comment on above: Performed By: #### C RP, CBC, ESR #### [address] Hemoglobin [Mass/volume] in BloodOrdered By: Manoj Forbes on 04-01-2024 Hemoglobin (Bld) [Mass/Vol] 12.5 g/dL Normal 11.8-15.4 [facility] Comment on above: Performed By: #### C RP, CBC, ESR #### [facility] [address] [place] [address] IBD [facility] [employer] 024 IBD Comment Normal [facility] Comment on above: Result Comment: See report. Scanned copy available in EMR. PERFORMED BY: [place] [address] PATHOLOGIST SIGHT MOUNTER SE CHEATHAM M.D. Performed By: #### C ALPROTECT #### [facility] , #### IBD DIAG #### [address] Leukocytes [#/volume] correc jeanette for nucleated erythrocytes in Blood by Automated counOrdered By: Manoj Forbes on 04-01-2024 WBC corrected for nucl RBC Auto (Bld) [#/Vol] 5.7 10*3/uL 3.8-11.6 [facility] Leukocytes [#/volume] in Blo od by Automated countOrdered By: Manoj Forbes on 04-01-2024 WBC (Bld) [#/Vol] 5.7 10*3/uL Normal 3.8-11.6 [facility] Comment on above: Performed By: #### C RP, CBC, ESR #### [facility] [address] [place] [address] Lymphocytes [#/volume] in Bl ood by Automated countOrdered By: Manoj Forbes on 04-01-2024 Lymphocytes (Bld) [#/Vol] 1.0 10*3/uL Normal 1.00-4.8 [facility] Comment on above: Performed By: #### C RP, CBC, ESR #### [address] Lymphocytes/100 leukocytes i n Blood by Automated countOrdered By: Manoj Forbes on 04-01-2024 Lymphocytes/100 WBC (Bld) 16.9 % Normal . [facility] Comment on above: Performed By: #### C RP, CBC, ESR #### [address] MCH [Entitic mass] by Automa jeanette countOrdered By: Manoj Forbes on 04-01-2024 MCH (RBC) [Entitic mass] 30.4 pg Normal 24.7-34.3 [facility] Comment on above: Performed By: #### C RP, CBC, ESR #### [address] MCHC Auto (RBC) [Mass/Vol]Or dered By: Manoj Forbes on 04-01-2024 MCHC (RBC) [Mass/Vol] 34.3 g/dL 32.0-35.0 [facility] MCV [Entitic volume] by Auto mated countOrdered By: Manoj Forbes on 04-01-2024 MCV (RBC) [Entitic vol] 88.6 fL Normal 80-100 [facility] Comment on above: Performed By: #### C RP, CBC, ESR #### [address] Neutrophils [#/volume] in Bl ood by Automated countOrdered By: Manoj Forbes on 04-01-2024 Neutrophils (Bld) [#/Vol] 3.9 10*3/uL Normal 1.8-7.7 [facility] Comment on above: Performed By: #### C RP, CBC, ESR #### [address] Nucleated erythrocytes [Pres ence] in Blood by Automated countOrdered By: Manoj Forbes on 04-01-2024 Nucleated RBC Auto Ql (Bld) 0.1 /100{WBC} 0-0.5 [facility] Platelet mean volume [Entiti c volume] in Blood by Automated countOrdered By: Manoj Forbes on 04-01-2024 Platelet mean volume (Bld) [Entitic vol] 7.5 fL Normal 6.3-10.7 [facility] Comment on above: Performed By: #### C RP, CBC, ESR #### [facility] [address] [id number] [facility] Platelets [#/volume] in Bloo d by Automated countOrdered By: Manoj Forbes on 04-01-2024 Platelets (Bld) [#/Vol] 279 10*3/uL Normal 150-450 [facility] Comment on above: Performed By: #### C RP, CBC, ESR #### [facility] [address] [id number] [facility] ANES POSTPROC EVALon 024 ANES POSTPROC EVAL HNO ID: [id number] Author: MONO WHALEY MD Service: Anesthesiology Author [...] March 19, 2024 TIME: 11:33 AM CSN: [id number] [facility] ANES PRE-OPon 03-19-2024 ANES PRE-OP HNO ID: [id number] Author: MONO WHALEY MD Service: Anesthesiology Author [...] March 19, 2024 TIME: 7:22 AM CSN: [id number] [facility] Colonoscopyon 03-19-2024 Colonoscopy [facility] Gastrointestinal Endoscopy Patient Name: Billie Yeboah Procedure Date: 03/19/2024 7:20 AM Date of : 1945 Admit Type: Outpatient Age: 78 Room: [address] [address] Gender: Female Note Status: Finalized Attending MD: Funmilayo Odell MD, [id number] Procedure: Colonoscopy Indications: Rectal bleeding Providers: Funmilayo [...] the patient. Procedure Code(s): --- Professional --- 69868, Colonoscopy, flexible; with biopsy, single or multiple CPT copyright 2020 [employer]. All rights reserved. The codes documented in this report are preliminary and upon machine shorthand reporter review may be revised to meet current [...] Blood Loss: Estimated blood loss was minimal. [facility] OPERATIVE NOon 03-19-2024 OPERATIVE NO HNO ID: [id number] Author: FUNMILAYO ODELL MD Service: Colorectal Author Type: Physician Type: Operative Report Filed: 03/19/2024 08:51 Note Text: COLON AND RECTAL SURGERY OPERATIVE REPORT PATIENT NAME: Billie Yeboah ADMISSION DATE: 03/19/2024 LOG ID: [id number] SURGERY/PROCEDURE DATE: 03/19/2024 INCISION/PROCEDURE START TIME: 7:54 AM INCISION CLOSE/PROCEDURE END TIME: 8:47 AM AGE: [age] year old SEX: female SURGEON(S)/PROCEDURA LIST(S) AND PONDMAN(S): Surgeons and Role: * Funmilayo Odell MD [...] Division of Colon and Rectal Surgery Normal [facility] CBC panel Auto (Bld)on 02-27 Erythrocyte distribution width (RBC) [Ratio] 12.3 % 11.5 - 15.0 % [facility] Hematocrit (Bld) [Volume fraction] 42.4 % 36.0 - 46.0 % [facility] Hemoglobin (Bld) [Mass/Vol] 13.6 g/dL 11.5 - 15.5 g/dL [facility] Interpretation and review of laboratory results Normal [facility] MCH (RBC) [Entitic mass] 29.6 pg 26.0 - 34.0 pg [facility] MCHC (RBC) [Mass/Vol] 32.1 g/dL 30.5 - 36.0 g/dL [facility] MCV (RBC) [Entitic vol] 92.4 fL 80.0 - 100.0 fL [facility] Nucleated RBC (Bld) [#/Vol] NINF [facility] Platelet mean volume (Bld) [Entitic vol] 9.6 fL 9.0 - 12.7 fL [facility] Platelets (Bld) [#/Vol] 352 10*3/uL [facility] RBC (Bld) [#/Vol] 4.59 10*6/uL 3.90 - 5.2 0 m/uL [facility] WBC (Bld) [#/Vol] 6.15 10*3/uL [facility] Erythrocyte distribution width (RBC) [Ratio] 12.3 % Normal 11.5-15.0 [facility] Comment on above: Order Comment: Speci men Type: BLOOD SPECIMEN Ordering Facility: [facility] Address: [address] [place] [address] Performed By: #### 5 8410-2 #### [facility] CLIA [id number] [address] [place], [place] [id number] [place] [address] [place] Hematocrit (Bld) [Volume fraction] 42.4 % Normal 36.0-46.0 [facility] Comment on above: Order Comment: Speci men Type: BLOOD SPECIMEN Ordering Facility: [facility] Address: [address] [place] [address] Performed By: #### 5 8410-2 #### [facility] [place] [id number] [address] [place] [address] [place] Hemoglobin (Bld) [Mass/Vol] 13.6 g/dL Normal 11.5-15.5 [facility] Comment on above: Order Comment: Speci men Type: BLOOD SPECIMEN Ordering Facility: [facility] Address: [address] [place] [address] Performed By: #### 5 8410-2 #### [facility] [place] [id number] [address] [place] [address] [place] MCH (RBC) [Entitic mass] 29.6 pg Normal 26.0-34.0 [facility] Comment on above: Order Comment: Speci men Type: BLOOD SPECIMEN Ordering Facility: [facility] Address: [address] [place] [address] Performed By: #### 5 8410-2 #### [facility] CLIA [id number] [place] [address] [place] MCHC (RBC) [Mass/Vol] 32.1 g/dL Normal 30.5-36.0 [facility] Comment on above: Order Comment: Speci men Type: BLOOD SPECIMEN Ordering Facility: [facility] Address: [address] [place] [address] Performed By: #### 5 8410-2 #### [facility] [place] [id number] [address] [place] [address] [place] MCV (RBC) [Entitic vol] 92.4 fL Normal 80.0-100.0 [facility] Comment on above: Order Comment: Speci men Type: BLOOD SPECIMEN Ordering Facility: [facility] Address: [address] [place] [address] Performed By: #### 5 8410-2 #### [facility] [place] [id number] [address] [place] [address] [place] Nucleated RBC (Bld) [#/Vol] 10*3/uL Normal <0.01 [facility] Comment on above: Order Comment: Speci men Type: BLOOD SPECIMEN Ordering Facility: [facility] Address: [address] [place] [address] Performed By: #### 5 8410-2 #### [facility] [place] [id number] [address] [place] [address] [place] Platelet mean volume (Bld) [Entitic vol] 9.6 fL Normal 9.0-12.7 [facility] Comment on above: Order Comment: Speci men Type: BLOOD SPECIMEN Ordering Facility: [facility] Address: [address] [place] [address] Performed By: #### 5 8410-2 #### [facility] [place] [id number] [address] [place] [address] [place] Platelets (Bld) [#/Vol] 352 10*3/uL Normal 150-400 [facility] Comment on above: Order Comment: Speci men Type: BLOOD SPECIMEN Ordering Facility: [facility] Address: [address] [place] [address] Performed By: #### 5 8410-2 #### [facility] IA [id number] [address] [place] [address] [place] RBC (Bld) [#/Vol] 4.59 10*6/uL Normal 3.90-5.20 [facility] Comment on above: Order Comment: Speci men Type: BLOOD SPECIMEN Ordering Facility: [facility] Address: [address] [place] [address] Performed By: #### 5 8410-2 #### [facility] CLIA [id number] [address] [place] [address] [facility] WBC (Bld) [#/Vol] 6.15 10*3/uL Normal 3.70-11.00 [facility] Comment on above: Order Comment: Speci men Type: BLOOD SPECIMEN Ordering Facility: [facility] Address: [address] [place] [address] Performed By: #### 5 8410-2 #### [facility] CLIA [id number] [place] [address] [facility] [place] Comprehensive metabolic 2000 panelon 02-28-2024 Albumin [Mass/Vol] 4.1 g/dL 3.9 - 4.9 g/dL [facility] ALP [Catalytic activity/Vol] 77 U/L 34 - 123 U/L [facility] ALT [Catalytic activity/Vol] 14 U/L 7 - 38 U/L [facility] Anion gap [Moles/Vol] 12 mmol/L 8 - 15 mmol/L [facility] AST [Catalytic activity/Vol] 18 U/L 13 - 35 U/L [facility] Bilirubin [Mass/Vol] 0.5 mg/dL 0.2 - 1 .3 mg/dL [facility] Calcium [Mass/Vol] 9.4 mg/dL 8.5 - 10. 2 mg/dL [facility] Chloride [Moles/Vol] 102 mmol/L 98 - 10 7 mmol/L [facility] CO2 [Moles/Vol] 27 mmol/L 22 - 30 mmol/L [facility] Creatinine [Mass/Vol] 0.81 mg/dL 0.58 - 0.96 mg/dL [facility] GFR/1.73 sq M.predicted among non-blacks MDRD (S/P/Bld) [Vol rate/Area] 74 mL/min/{1.73_m2} - PINF [facility] Comment on above: Estimated Glomerular Filtration [...] 107 mg/dL High 74 - 99 mg/dL [facility] Comment on above: The [place] [employer] s Association (ADA) provides guidance for [...] Standards of Medical Care in Diabetes 2016, [place]. Diabetes Care. 2016.39(Suppl 1). Interpretation and review of laboratory results Abnormal [facility] Potassium [Moles/Vol] 4.4 mmol/L 3.7 - 5.1 mmol/L [facility] Protein [Mass/Vol] 7.5 g/dL 6.3 - 8.0 g/dL [facility] Sodium [Moles/Vol] 141 mmol/L 136 - 144 mmol/L [facility] Urea nitrogen [Mass/Vol] 11 mg/dL 7 - 21 mg/dL [facility] Albumin [Mass/Vol] 4.1 g/dL Normal 3.9-4.9 [facility] Comment on above: Order Comment: Eliu hooker Type: BLOOD SPECIMEN Ordering Facility: [facility] Address: [address] [place] [address] Performed By: #### 3 016-3, 05886-8 #### [facility] CLIA [id number] [address] [place] [address] [place] ALP [Catalytic activity/Vol] 77 U/L Normal 34-123 [facility] Comment on above: Order Comment: Eliu hooker Type: BLOOD SPECIMEN Ordering Facility: [facility] Address: [address] [id number] Performed By: #### 3 016-3, 38898-3 #### [facility] CLIA [id number] [address] [place] [address] [place] ALT [Catalytic activity/Vol] 14 U/L Normal 7-38 [facility] Comment on above: Order Comment: Speci men Type: BLOOD SPECIMEN Ordering Facility: [facility] Address: [address] [place] [address] Performed By: #### 3 016-3, #### [facility] CLIA [id number] [address] [place] [address] [place] Anion gap [Moles/Vol] 12 mmol/L Normal 8-15 [facility] Comment on above: Order Comment: Speci men Type: BLOOD SPECIMEN Ordering Facility: [facility] Address: [address] [place] [address] Performed By: #### 3 016-3, 91333-9 #### [facility] CLIA [id number] [address] [place] [address] [place] AST [Catalytic activity/Vol] 18 U/L Normal 13-35 [facility] Comment on above: Order Comment: Speci men Type: BLOOD SPECIMEN Ordering Facility: [facility] Address: [address] [place] [address] Performed By: #### 3 016-3, 54724-8 #### [facility] CLIA [id number] [address] [place] [address] [place] Bilirubin [Mass/Vol] 0.5 mg/dL Normal 0.2-1.3 [facility] Comment on above: Order Comment: Speci men Type: BLOOD SPECIMEN Ordering Facility: [facility] Address: [address] [place] [address] Performed By: #### 3 016-3, 08212-9 #### [facility] CLIA [id number] [address] [place] [address] [place] Calcium [Mass/Vol] 9.4 mg/dL Normal 8.5-10.2 [facility] Comment on above: Order Comment: Speci men Type: BLOOD SPECIMEN Ordering Facility: [facility] Address: [address] [place] [address] Performed By: #### 3 016-3, 76543-6 #### [facility] CLIA [id number] [address] [place] [address] [place] Chloride [Moles/Vol] 102 mmol/L Normal 98-107 [facility] Comment on above: Order Comment: Speci men Type: BLOOD SPECIMEN Ordering Facility: [facility] Address: [address] [place] [address] Performed By: #### 3 016-3, 04195-6 #### [facility] CLIA [id number] [address] [place] [address] [place] CO2 [Moles/Vol] 27 mmol/L Normal 22-30 [facility] Comment on above: Order Comment: Speci men Type: BLOOD SPECIMEN Ordering Facility: [facility] Address: [address] [place] [address] Performed By: #### 3 016-3, 17885-6 #### [facility] CLIA [id number] [address] [place] [address] [place] Creatinine [Mass/Vol] 0.81 mg/dL Normal 0.58-0.96 [facility] Comment on above: Order Comment: Speci men Type: BLOOD SPECIMEN Ordering Facility: [facility] Address: [address] [place] [address] Performed By: #### 3 016-3, 10338-7 #### [facility] CLIA [id number] [address] [place] [address] [place] Creatinine and Glomerular filtration rate.predicted panel (S/P/Bld) 74 mL/min/1.73m??? Normal >=60 [facility] Comment on above: Order Comment: Speci men Type: BLOOD SPECIMEN Ordering Facility: [facility] Address: [address] [place] [address] Result Comment: Joycelyn mated Glomerular Filtration Rate [...] actual GFR. Performed By: #### 3 016-3, 46972-1 #### [facility] CLIA [id number] [address] [place] [address] [place] Glucose [Mass/Vol] 107 mg/dL High 74-99 [facility] Comment on above: Order Comment: Eliu hooker Type: BLOOD SPECIMEN Ordering Facility: [facility] Address: [address] [place] [address] Result Comment: The [place] Diabetes Association (ADA) provides guidance for cutoff [...] Standards of Medical Care in Diabetes 2016, [place] [employer]. Diabetes Care. 2016.39(Suppl 1). Performed By: #### 3 016-3, 86510-8 #### [facility] CLIA [id number] [address] [place] [address] [place] Potassium [Moles/Vol] 4.4 mmol/L Normal 3.7-5.1 [facility] Comment on above: Order Comment: Eliu hooker Type: BLOOD SPECIMEN Ordering Facility: [facility] Address: [address] [place] [address] Performed By: #### 3 016-3, 29445-5 #### [facility] CLIA [id number] [address] [place] [address] [place] Protein [Mass/Vol] 7.5 g/dL Normal 6.3-8.0 [facility] Comment on above: Order Comment: Speci men Type: BLOOD SPECIMEN Ordering Facility: [facility] Address: [address] [place], [place] [address] Performed By: #### 3 016-3, 28843-1 #### [facility] CLIA [id number] [address] [place] [address] [place] Sodium [Moles/Vol] 141 mmol/L Normal 136-144 [facility] Comment on above: Order Comment: Speci men Type: BLOOD SPECIMEN Ordering Facility: [facility] Address: [address] [place], [place] [address] Performed By: #### 3 016-3, 23837-8 #### [facility] CLIA [id number] [address] [place] [address] [place] Urea nitrogen [Mass/Vol] 11 mg/dL Normal 7-21 [facility] Comment on above: Order Comment: Speci men Type: BLOOD SPECIMEN Ordering Facility: [facility] Address: [address] [place], [place] [address] Performed By: #### 3 016-3, 93262-0 #### [facility] CLIA [id number] [address] [place] [address] [place] ECG COMPLETEon 02-28-2024 ECG COMPLETE Ventricular Rate : 113 BPM Atrial Rate : 113 BPM P-R Interval : 166 ms QRS Duration : 86 ms Q-T Interval : 318 ms QTC Calculation(Bazett) : 436 ms Calculated P Central : 66 degrees Calculated R Central : -50 degrees Calculated T Central : 69 degrees Sinus tachycardia Right atrial enlargement Left anterior fascicular block Possible Anterolateral infarct , age undetermined Abnormal ECG No previous ECGs available Confirmed by DANIEL LAZO MD ([id number]) on 03/06/2024 10:31:42 AM NAME : BILLIE YEBOAH PID : [id number] : 1945 Gender : Female Race : ORD : [id number] Procedure Date : Feb 28 2024 13:49:41 [...] FUNMILAYO ODELL Acquired by : dm, Normal [facility] Free T4 [Mass/Vol]on 024 Interpretation and review of laboratory results Abnormal [facility] HISTORY PHYSICALon HISTORY PHYSICAL HNO ID: [id number] Author: ZAIDA HERNANDEZ PA-C Service: ? Author Type: Physician Plush Weaver Type: H&P Filed: 03/10/2024 13:47 Note Text: [facility] HISTORY AND PHYSICAL EXAMINATION SERVICE DATE: 02/28/2024 SERVICE TIME: 2:26 PM PRIMARY CARE PHYSICIAN: Gisella Chamorro MD Assessment 1. Preoperative examination Scheduled for surgery 03/19/2024 2. BRBPR (bright red blood per rectum) 3. Rectal prolapse See HPI, having surgery 4. Tachycardia HR averaging around 118-120 during our visit. Patient denies any cardiac symptoms. No palpitations or CP. EKG today shows sinus tachycardia with HR 113 bpm, also shows possible anterolateral infarct. Patient has never had a prior EKG at [facility] before, but has at either [facility] or [facility]. Faxing for records for comparison. Checking CBC, CMP, TSH, T4 labs. - Electrolytes and CBC are WNL. - TSH is low and T4 elevated, showing that her Levothyroxine dose of 112 mcg needs to be adjusted. Called and spoke with patient on phone 02/29/2024, reviewed her labs and that her levothyroxine dose is too high. Confirmed that her PCP, Dr. Gisella Chamorro is managing this. Will fax letter to Dr. Chamorro with results. Received old EKG done 2013 which showed poor wave progression and low QRS voltages in precordial leads, appears similar to EKG done today. Will review with anesthesia. 5. Hypothyroidism, unspecified type Compliant on daily levothyroxine. Updating thyroid labs today due to tachycardia - see above. 6. 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 On daily Etodolac and has Tramadol for [...] 35 kg/m2 Non-male patient STOP-Bang Score: 1 [id number] Score: [id number] Score: 0 ANESTHESIA FINDINGS: Intubation History: No [...] thyroid labs. Letter faxed to Dr. Gisella Chamorro 02/29/2024 03/04/2024 - received signed letter from Dr. Chamorro, patient is ok to proceed with surgery. Addendum by Usha Alarcon PA-C on 03/06/24: Received letter from Dr. Chamorro that he is rechecking labs and will adjust medication accordingly and also re-checking BP next week, but still OK to proceed with upcoming surgery. Scanning letter into chart. Addendum 03/10/2024 Received phone call from patient 03/06/24, PCP Dr. Chamorro Reduced her levothyroxine dose from 112 mcg [...] mg tablet ECG COMPLETE Faxed release to [employer] (more content not included)... Normal [facility] T4 FREE/FREE THYROXINEon Free T4 [Mass/Vol] 1.9 ng/dL High 0.9 - 1.7 ng/dL [facility] T4 Free SerPl-mCncon 024 Free T4 [Mass/Vol] 1.9 ng/dL High 0.9-1.7 [facility] Comment on above: Order Comment: Speci men Type: BLOOD SPECIMEN Ordering Facility: [facility] Address: [address] [place] [address] Performed By: #### 3 024-7 #### [facility] CLIA [id number] [address] [place], [place] [address] [place] [address] [place] THYROID STIMULATING HORMONEo n 02-28-2024 TSH Qn 0.120 m[IU]/L Low [facility] TSH Qnon 02-28-2024 Interpretation and review of laboratory results Abnormal [facility] TSH SerPl-aCncon 02-28-2024 TSH Qn 0.120 m[IU]/L Low 0.270-4.200 [facility] Comment on above: Order Comment: Speci men Type: BLOOD SPECIMEN Ordering Facility: [facility] Address: [address], [place] [address] Performed By: #### 3 016-3, 14275-5 #### [facility] CLIA [id number] [address] [facility] [address] [facility] CNOVon 02-23-2024 CNOV Office Visit ([facility]) BILLIE YEBOAH ([id number]) 1945 F Date Time Provider Department 02/23/24 [...] ALLERGIES Allergen Reactions Ciprofloxacin Rash, Unknown Nitrofurantoin [place]* Other: See Comments, GI Upset Sulfamethoxazole-Tr* Other: [...] exam reveals no gross blood or masses [employer] Teacher present: Yes, Sarah Z Anoscopy: The patient [...] MD Colorectal Surgery Referring Provider: MANOJ FORBES [[id number]] Allergies As of Date: 02/23/2024 Noted Allergy Reaction CIPROFLOXACIN 05/31/2013 2 - Rash 16 - Unknown NITROFURANTOIN MONOHYD/M-CRYST 10/27/2022 14 - Other: See Comments 8 - GI Upset SULFAMETHOXAZOLE-TRI METHOPRIM 05/31/2013 14 - Other: See Comments 2 - Rash Date Reviewed: 02/23/2024 Reviewed by: Sarah Marroquin OCCA - Fully Assessed Reason for Visit: New Patient [172] Hemorrhoids [80141] Rectal Bleeding [202] Primary Visit Diagnosis:Hemorrhoid s, [...] Encounter Status:Closed by FUNMILAYO ODELL on 02/25/24 [facility] CNOVon 11-03-2023 CNOV Office Visit ([facility]) BILLIE YEBOAH ([id number]) 1945 F Date Time Provider Department 11/03/23 [...] Signed COLORECTAL SURGERY November 03, 2023 Billie Goodther 78 year old This consult was requested by Dr. Forbes and my final recommendations will be communicated to the requesting health care provider by way of the shared medical record for internal providers or letter via the [employer] for external providers. Chief Complaint: [...] ALLERGIES Allergen Reactions Ciprofloxacin Rash, Unknown Nitrofurantoin [place]* Other: See Comments, GI Upset Sulfamethoxazole-Tr* Other: [...] has a weak squeeze and discoordinated push [employer] Teacher present: Yes, Sarah Z Anoscopy: The patient [...] reports was (more content not included)... Normal [facility] Jasmin 10-11-2023 TAMARAN Telephone ([facility]) BILLIE YEBOAH ([id number]) 1945 F Date Time Provider Department 10/11/23 [...] by JEAN CARLOS GUNN on 10/11/23 Normal [facility] CBC AUTO DIFFon 08-23-2022 BASO # 0.0 103/ul Normal 0.0-0.1 [facility] Comment on above: Performed By: #### NIKI MORALES #### [facility] [address] [place] [address] Dr. Ryann Pearce Basophils/100 WBC (Bld) 1.0 % Normal 0.2-2.0 [facility] Comment on above: Performed By: #### NIKI MORALES #### [facility] [address] [address] [address] Ryann Pearce EO # 0.2 103/ul Normal 0.0-0.7 [facility] Comment on above: Performed By: #### I WIL VITAD #### [facility] [address] [place] [address] Dr. Ryann Pearce Eosinophils/100 WBC (Bld) 3.8 % Normal 0.9-7.0 [facility] Comment on above: Performed By: #### I WIL VITAD #### [facility] [address] [place] [address] Dr. Ryann Pearce Erythrocyte distribution width (RBC) [Ratio] 12.1 % Normal 11.0-15.0 [facility] Comment on above: Performed By: #### I WIL VITAD #### [facility] [address] [place] [address] Dr. Ryann Pearce Hematocrit (Bld) [Volume fraction] 35.5 % Critically low 36.0-48.0 [facility] Comment on above: Performed By: #### Colin DE LA TORRE VITAD #### [facility] [address] [place] [address] Dr. Ryann Pearce Hemoglobin (Bld) [Mass/Vol] 11.7 g/dL Critically low 12.0-16.0 [facility] Comment on above: Performed By: #### I WIL VITAD #### [facility] [address] [place] [address] Dr. Ryann Pearce IG # 0.01 10e3/ul Normal 0.00-0.03 [facility] Comment on above: Performed By: #### Colin DE LA TORRE VITAD #### [facility] [address] [place] [address] Dr. Ryann Pearce IG % 0.3 % Normal 0.0-0.5 [facility] Comment on above: Performed By: #### I WIL VITAD #### [facility] [address] [place] [address] Dr. Ryann Pearce LYMPH # 1.2 103/ul Normal 1.2-3.8 [facility] Comment on above: Performed By: #### I WIL, VITAD #### [facility] [address] [place] [address] Dr. Ryann Pearce Lymphocytes/100 WBC (Bld) 31.5 % Normal 20.5-60.0 [facility] Comment on above: Performed By: #### I WIL, VITAD #### [facility] [address] [place] [address] Dr. Ryann Pearce MANUAL DIFF REQ NO Normal [facility] Comment on above: Performed By: #### I IWL, VITAD #### [facility] [address] [place] [address] Dr. Ryann Pearce MCH (RBC) [Entitic mass] 29.5 pg Normal 26.7-34.0 [facility] Comment on above: Performed By: #### I WIL, VITAD #### [facility] [address] [place] [address] Dr. Ryann Pearce MCHC (RBC) [Mass/Vol] 33.0 g/dL Normal 29.9-35.2 [facility] Comment on above: Performed By: #### I WIL, VITAD #### [facility] [address] [place] [address] Dr. Ryann Pearce MCV (RBC) [Entitic vol] 89.6 fL Normal 81.0-99.0 [facility] Comment on above: Performed By: #### I WIL, VITAD #### [facility] [address] [place] [address] Dr. Ryann Pearce MONO # 0.5 103/ul Normal 0.3-0.8 [facility] Comment on above: Performed By: #### I WIL, VITAD #### [facility] [address] [place] [address] Dr. Ryann Pearce Monocytes/100 WBC (Bld) 13.2 % Critically high 1.7-12.0 [facility] Comment on above: Performed By: #### I WIL, VITAD #### [facility] [address] [place] [address] Dr. Ryann Pearce NEUT # 2.0 103/ul Normal 1.4-6.5 [facility] Comment on above: Performed By: #### I WIL, VITAD #### [facility] [address] [place] [address] Dr. Ryann Pearce Neutrophils/100 WBC (Bld) 50.2 % Normal 43.0-75.0 [facility] Comment on above: Performed By: #### I WIL, VITAD #### [facility] [address] [place] [address] Dr. Ryann Pearce Platelet mean volume (Bld) [Entitic vol] 8.9 fL Critically low 9.5-13.5 [facility] Comment on above: Performed By: #### I WIL VITAD #### [facility] [address] [place] [address] Dr. Ryann Pearce PLT 253 103/ul Normal 150-450 [facility] Comment on above: Performed By: #### I WIL VITAD #### [facility] [address] [place] [address] Dr. Ryann Pearce RBC 3.96 106/ul Critically low 4.20-5.40 [facility] Comment on above: Performed By: #### I WIL VITAD #### [facility] [address] [place] [address] Dr. Ryann Pearce WBC 3.9 103/ul Critically low 4.0-11.0 [facility] Comment on above: Performed By: #### I WIL VITAD #### [facility] [address] [place] [address] Dr. Ryann Pearce PROF 14(COMP METB)on 023 Albumin [Mass/Vol] 3.3 g/dL Critically low 3.4-5.0 [facility] Comment on above: Performed By: #### I WIL VITAD #### [facility] [address] [place] [address] Dr. Ryann Pearce Albumin/Globulin [Mass ratio] 1.0 {ratio} Normal [facility] Comment on above: Performed By: #### I WIL VITAD #### [facility] [address] [place] [address] Dr. Ryann Pearce ALP [Catalytic activity/Vol] 65 U/L Normal 46-116 [facility] Comment on above: Performed By: #### I WIL, VITAD #### [facility] [address] [place] [address] Dr. Ryann Pearce ALT [Catalytic activity/Vol] 30 U/L Normal 14-59 [facility] Comment on above: Performed By: #### I WIL, VITAD #### [facility] [address] [place] [address] Dr. Ryann Pearce Anion gap [Moles/Vol] 10.0 mmol/L Normal [facility] Comment on above: Performed By: #### I WIL VITAD #### [facility] [address] [place] [address] Dr. Ryann Pearce AST [Catalytic activity/Vol] 26 U/L Normal 15-37 [facility] Comment on above: Performed By: #### Colin DE LA TORRE VITAD #### [facility] [address] [place] [address] Dr. Ryann Pearce Bilirubin [Mass/Vol] 0.4 mg/dL Normal 0.2-1.0 [facility] Comment on above: Performed By: #### Colin DE LA TORRE VITAD #### [facility] [address] [place] [address] Dr. Ryann Pearce Calcium [Mass/Vol] 8.8 mg/dL Normal 8.5-10.1 [facility] Comment on above: Performed By: #### Colin DE LA TORRE VITAD #### [facility] [address] [place] [address] Dr. Ryann Pearce Chloride [Moles/Vol] 105 mmol/L Normal 98-107 [facility] Comment on above: Performed By: #### Colin DE LA TORRE VITAD #### [facility] [address] [place] [address] Dr. Ryann Pearce CO2 [Moles/Vol] 30.1 mmol/L Normal 21.0-32.0 [facility] Comment on above: Performed By: #### Colin DE LA TORRE VITAD #### [facility] [address] [place] [address] Dr. Ryann Pearce Creatinine [Mass/Vol] 0.90 mg/dL Normal 0.55-1.02 [facility] Comment on above: Performed By: #### Colin DE LA TORRE, VITAD #### [facility] [address] [place] [address] Dr. Ryann Pearce EGFR-AF TURKISH >60 Normal >=60 [facility] Comment on above: Performed By: #### Colin DE LA TORRE, VITAD #### [facility] [address] [address] [address] Ryann Pearce EGFR-NON AF TURKISH >60 Normal >=60 [facility] Comment on above: Performed By: #### Colin DE LA TORRE, VITAD #### [facility] [address] [place] [address] Dr. Ryann Pearce Globulin (S) [Mass/Vol] 3.3 g/dL Normal [facility] Comment on above: Performed By: #### Colin DE LA TORRE VITAD #### [facility] [address] [place] [address] Dr. Ryann Pearce Glucose [Mass/Vol] 100 mg/dL Normal 74-106 [facility] Comment on above: Performed By: #### Colin DE LA TORRE VITAD #### [facility] [address] [place] [address] Dr. Ryann Pearce Potassium [Moles/Vol] 4.1 mmol/L Normal 3.5-5.1 [facility] Comment on above: Performed By: #### Colin DE LA TORRE VITAD #### [facility] [address] [place] [address] Dr. Ryann Pearce Protein [Mass/Vol] 6.6 g/dL Normal 6.4-8.2 [facility] Comment on above: Performed By: #### Colin DE LA TORRE VITAD #### [facility] [address] [place] [address] Dr. Ryann Pearce Sodium [Moles/Vol] 141 mmol/L Normal 136-145 [facility] Comment on above: Performed By: #### Colin DE LA TORRE VITAD #### [facility] [address] [place] [address] Dr. Ryann Pearce Urea nitrogen [Mass/Vol] 13.0 mg/dL Normal 7.0-18.0 [facility] Comment on above: Performed By: #### I WIL, VITAD #### [facility] [address] [place] [address] Dr. Ryann Pearce Urea nitrogen/Creatinine [Mass ratio] 14.4 mg/mg Normal [facility] Comment on above: Performed By: #### I WIL, VITAD #### [facility] [address] [place] [address] Dr. Ryann Pearce CBC AUTO DIFFon 06-06-2022 BASO # 0.0 103/ul Normal 0.0-0.1 [facility] Comment on above: Performed By: #### Colin DE LA TORRE VITAD #### [facility] [address] [place] [address] Dr. Ryann Pearce Basophils/100 WBC (Bld) 1.2 % Normal 0.2-2.0 [facility] Comment on above: Performed By: #### Colin DE LA TORRE, VITAD #### [facility] [address] [place] [address] Dr. Ryann Pearce EO # 0.1 103/ul Normal 0.0-0.7 [facility] Comment on above: Performed By: #### Colin DE LA TORRE, VITAD #### [facility] [address] [place] [address] Dr. Ryann Pearce Eosinophils/100 WBC (Bld) 3.3 % Normal 0.9-7.0 [facility] Comment on above: Performed By: #### Colin DE LA TORRE VITAD #### [facility] [address] [place] [address] Dr. Ryann Pearce Erythrocyte distribution width (RBC) [Ratio] 12.5 % Normal 11.0-15.0 [facility] Comment on above: Performed By: #### Colin DE LA TORRE, VITAD #### [facility] [address] [place] [address] Dr. Ryann Pearce Hematocrit (Bld) [Volume fraction] 38.7 % Normal 36.0-48.0 [facility] Comment on above: Performed By: #### I WIL, VITAD #### [facility] [address] [address] [address] Ryann Pearce Hemoglobin (Bld) [Mass/Vol] 12.8 g/dL Normal 12.0-16.0 [facility] Comment on above: Performed By: #### I WIL, VITAD #### [facility] [address] [place] [address] Dr. Ryann Pearce IG # 0.01 10e3/ul Normal 0.00-0.03 [facility] Comment on above: Performed By: #### I WIL, VITAD #### [facility] [address] [place] [address] Dr. Ryann Pearce IG % 0.3 % Normal 0.0-0.5 [facility] Comment on above: Performed By: #### I WIL, VITAD #### [facility] [address] [place] [address] Dr. Ryann Pearce LYMPH # 1.1 103/ul Critically low 1.2-3.8 [facility] Comment on above: Performed By: #### I WIL, VITAD #### [facility] [address] [place] [address] Dr. Ryann Pearce Lymphocytes/100 WBC (Bld) 32.0 % Normal 20.5-60.0 [facility] Comment on above: Performed By: #### I WIL, VITAD #### [facility] [address] [place] [address] Dr. Ryann Pearce MANUAL DIFF REQ NO Normal [facility] Comment on above: Performed By: #### I WIL, VITAD #### [facility] [address] [place] [address] Dr. Ryann Pearce MCH (RBC) [Entitic mass] 29.6 pg Normal 26.7-34.0 [facility] Comment on above: Performed By: #### I WIL, VITAD #### [facility] [address] [place] [address] Dr. Ryann Pearce MCHC (RBC) [Mass/Vol] 33.1 g/dL Normal 29.9-35.2 [facility] Comment on above: Performed By: #### I WIL, VITAD #### [facility] [address] [place] [address] Dr. Ryann Pearce MCV (RBC) [Entitic vol] 89.4 fL Normal 81.0-99.0 [facility] Comment on above: Performed By: #### Colin DE LA TORRE, VITAD #### [facility] [address] [place] [address] Dr. Ryann Pearce MONO # 0.4 103/ul Normal 0.3-0.8 [facility] Comment on above: Performed By: #### I WIL, VITAD #### [facility] [address] [place] [address] Dr. Ryann Pearce Monocytes/100 WBC (Bld) 11.1 % Normal 1.7-12.0 [facility] Comment on above: Performed By: #### Colin DE LA TORRE VITAD #### [facility] [address] [place] [address] Dr. Ryann Pearce NEUT # 1.7 103/ul Normal 1.4-6.5 [facility] Comment on above: Performed By: #### Colin DE LA TORRE VITAD #### [facility] [address] [place] [address] Dr. Ryann Pearce Neutrophils/100 WBC (Bld) 52.1 % Normal 43.0-75.0 [facility] Comment on above: Performed By: #### Colin DE LA TORRE VITAD #### [facility] [address] [place] [address] Dr. Ryann Pearce Platelet mean volume (Bld) [Entitic vol] 9.3 fL Critically low 9.5-13.5 [facility] Comment on above: Performed By: #### Colin DE LA TORRE VITAD #### [facility] [address] [place] [address] Dr. Ryann Pearce PLT 255 103/ul Normal 150-450 [facility] Comment on above: Performed By: #### Colin DE LA TORRE VITAD #### [facility] [address] [place] [address] Dr. Ryann Pearce RBC 4.33 106/ul Normal 4.20-5.40 [facility] Comment on above: Performed By: #### I WIL VITAD #### [facility] [address] [place] [address] Dr. Ryann Pearce WBC 3.3 103/ul Critically low 4.0-11.0 [facility] Comment on above: Performed By: #### I WIL VITAD #### [facility] [address] [place] [address] Dr. Ryann Pearce FREE THYROXINE INDEX T7on FTI 2.96 Normal 1.30-4.50 [facility] Comment on above: Performed By: #### T SH, LIPID, T7, CMP #### [facility] [address] [place] [address] Dr. Ryann Pearce T3U 34.0 % Normal 30.0-39.0 [facility] Comment on above: Performed By: #### T SH, LIPID, T7, CMP #### [facility] [address] [place] [address] Dr. Ryann Pearce T4 [Mass/Vol] 8.70 ug/dL Normal 4.80-13.90 [facility] Comment on above: Performed By: #### T SH, LIPID, T7, CMP #### [facility] [address] [place] [address] Dr. Ryann Pearce GLYCOHEMOGLOBIN A1Con 2021 ADA RECOMMENDATION SEE BELOW Normal [facility] Comment on above: Result Comment: ADA RECOMMENDED LIMIT 4.0 - 6.0 ADA THERAPEUTIC TARGET < 7.0 ACTION SUGGESTED > 7.0 Performed By: #### A 1C #### [facility] [address] [place] [address] Dr. Ryann Pearce Glucose [Mass/Vol] 105 mg/dL Normal [facility] Comment on above: Performed By: #### A 1C #### [facility] [address] [place] [address] Dr. Ryann Pearce HbA1c (Bld) [Mass fraction] 5.3 % Normal 4.5-6.2 [facility] Comment on above: Performed By: #### A 1C #### [facility] [address] [address] [address] Ryann Pearce IRONon 06-06-2022 Iron [Mass/Vol] 104.0 ug/dL Normal 50.0-170.0 [facility] Comment on above: Performed By: #### I NIKI DE LA TORRE #### [facility] [address] [address] [address] Ryann Pearce LIPID PROFILEon 06-06-2022 CHOL-HDL RATIO NORM SEE BELOW Normal [facility] Comment on above: Result Comment: 3.3 - 4.4 LOW RISK 4.4 - 7.1 AVERAGE RISK 7.1 - 11.0 MODERATE RISK >11.0 HIGH RISK Performed By: #### T SH, LIPID, T7, CMP #### [facility] [address] [address] [address] Ryann Pearce Cholesterol [Mass/Vol] 160 mg/dL Normal <=200 [facility] Comment on above: Performed By: #### T SH, LIPID, T7, CMP #### [facility] [address] [address] [address] Ryann Pearce Cholesterol in HDL [Mass/Vol] 75 mg/dL Critically high 40-60 [facility] Comment on above: Performed By: #### T SH, LIPID, T7, CMP #### [facility] [address] [address] [address] Ryann Pearce Cholesterol in LDL [Mass/Vol] 66.6 mg/dL Normal [facility] Comment on above: Performed By: #### T SH, LIPID, T7, CMP #### [facility] [address] [address] [address] Ryann Pearce Cholesterol.total/Chol esterol in HDL [Mass ratio] 2.1 {ratio} Normal [facility] Comment on above: Performed By: #### T SH, LIPID, T7, CMP #### [facility] [address] [address] [address] Ryann Pearce HDL NORMAL > or = 60 mg/dl - LOW CARDIOVASCULAR RISK <40 mg/dl - HIGH CARDIOVASCULAR RISK Normal [facility] Comment on above: Performed By: #### T SH, LIPID, T7, CMP #### [facility] [address] [address] [address] Ryann Pearce LDL CALC NORMAL SEE BELOW Normal [facility] Comment on above: Result Comment: <100 mg/dl OPTIMAL 100 - 129 mg/dl NEAR OR ABOVE OPTIMAL 130 - 159 mg/dl BORDERLINE HIGH 160 - 189 mg/dl HIGH >190 mg/dl VERY HIGH Performed By: #### T SH, LIPID, T7, CMP #### [facility] [address] [address] [address] Ryann Pearce Triglyceride [Mass/Vol] 92 mg/dL Normal <=150 [facility] Comment on above: Performed By: #### T SH, LIPID, T7, CMP #### [facility] [address] [address] [address] Ryann Pearce VLDL CALC 18.4 mg/dL Normal [facility] Comment on above: Performed By: #### T SH, LIPID, T7, CMP #### [facility] [address] [address] [address] Ryann Pearce PROF 14(COMP METB)on 022 Albumin [Mass/Vol] 3.4 g/dL Normal 3.4-5.0 [facility] Comment on above: Performed By: #### T SH, LIPID, T7, CMP #### [facility] [address] [address] [address] Ryann Pearce Albumin/Globulin [Mass ratio] 1.0 {ratio} Normal [facility] Comment on above: Performed By: #### T SH, LIPID, T7, CMP #### [facility] [address] [address] [address] Ryann Pearce ALP [Catalytic activity/Vol] 71 U/L Normal 46-116 [facility] Comment on above: Performed By: #### T SH, LIPID, T7, CMP #### [facility] [address] [address] [address] Ryann Pearce ALT [Catalytic activity/Vol] 19 U/L Normal 14-59 [facility] Comment on above: Performed By: #### T SH, LIPID, T7, CMP #### [facility] [address] [address] [address] Ryann Pearce Anion gap [Moles/Vol] 7.8 mmol/L Normal [facility] Comment on above: Performed By: #### T SH, LIPID, T7, CMP #### [facility] [address] [place] [address] Dr. Ryann Pearce AST [Catalytic activity/Vol] 21 U/L Normal 15-37 [facility] Comment on above: Performed By: #### T SH, LIPID, T7, CMP #### [facility] [address] [place] [address] Dr. Ryann Pearce Bilirubin [Mass/Vol] 0.6 mg/dL Normal 0.2-1.0 [facility] Comment on above: Performed By: #### T SH, LIPID, T7, CMP #### [facility] [address] [place] [address] Dr. Ryann Pearce Calcium [Mass/Vol] 8.7 mg/dL Normal 8.5-10.1 [facility] Comment on above: Performed By: #### T SH, LIPID, T7, CMP #### [facility] [address] [place] [address] Dr. Ryann Pearce Chloride [Moles/Vol] 103 mmol/L Normal 98-107 [facility] Comment on above: Performed By: #### T SH, LIPID, T7, CMP #### [facility] [address] [place] [address] Dr. Ryann Pearce CO2 [Moles/Vol] 34.4 mmol/L Critically high 21.0-32.0 [facility] Comment on above: Performed By: #### T SH, LIPID, T7, CMP #### [facility] [address] [place] [address] Dr. Ryann Pearce Creatinine [Mass/Vol] 0.75 mg/dL Normal 0.55-1.02 [facility] Comment on above: Performed By: #### T SH, LIPID, T7, CMP #### [facility] [address] [place] [address] Dr. Ryann Pearce EGFR-AF TURKISH >60 Normal >=60 [facility] Comment on above: Performed By: #### T SH, LIPID, T7, CMP #### [facility] [address] [address] [address] Ryann Pearce EGFR-NON AF TURKISH >60 Normal >=60 [facility] Comment on above: Performed By: #### T SH, LIPID, T7, CMP #### [facility] [address] [address] [address] Ryann Pearce Globulin (S) [Mass/Vol] 3.5 g/dL Normal [facility] Comment on above: Performed By: #### T SH, LIPID, T7, CMP #### [facility] [address] [address] [address] Ryann Pearce Glucose [Mass/Vol] 95 mg/dL Normal 74-106 [facility] Comment on above: Performed By: #### T SH, LIPID, T7, CMP #### [facility] [address] [place] [address] Dr. Ryann Pearce Potassium [Moles/Vol] 4.2 mmol/L Normal 3.5-5.1 [facility] Comment on above: Performed By: #### T SH, LIPID, T7, CMP #### [facility] [address] [place] [address] Dr. Ryann Pearce Protein [Mass/Vol] 6.9 g/dL Normal 6.4-8.2 [facility] Comment on above: Performed By: #### T SH, LIPID, T7, CMP #### [facility] [address] [address] [address] Ryann Pearce Sodium [Moles/Vol] 141 mmol/L Normal 136-145 [facility] Comment on above: Performed By: #### T SH, LIPID, T7, CMP #### [facility] [address] [place] [address] Dr. Ryann Pearce Urea nitrogen [Mass/Vol] 10.0 mg/dL Normal 7.0-18.0 [facility] Comment on above: Performed By: #### T SH, LIPID, T7, CMP #### [facility] [address] [address] [address] Ryann Pearce Urea nitrogen/Creatinine [Mass ratio] 13.3 mg/mg Normal [facility] Comment on above: Performed By: #### T SH, LIPID, T7, CMP #### [facility] [address] [address] [address] Ryann Pearce TSHon 06-06-2022 TSH 0.151 uIU/mL Critically low 0.358-3.740 [facility] Comment on above: Performed By: #### T SH, LIPID, T7, CMP #### [facility] [address] [address] [address] Ryann Pearce VITAMIN D 25 OHon 06-06-2022 VIT D 25-OH 75.4 ng/mL Normal [facility] Comment on above: Performed By: #### I WIL VITAD #### [facility] [address] [address] [address] Ryann Pearce VIT D RANGES SEE BELOW Normal [facility] Comment on above: Result Comment: <20 ng/mL Vit D deficient 20 - <30 ng/mL Vit D insufficient 30 - 100 ng/mL Vit D sufficient >100 ng/mL Potential Toxicity Performed By: #### I WIL VITAD #### [facility] [address] [place] [address] Dr. Ryann Pearce MG MAMM SCREEN 3D KRISTINA CADon 05-11-2022 MG MAMM SCREEN 3D KRISTINA CAD Patient: BILLIE YEBOAH Exam Date: 05/11/2022 : 1945 Gender:F Ordering : DR IGSELLA CHAMORRO . Admission #: [id number] Family : Order #: [id number] CLICK HERE TO VIEW EXAM RADIOLOGY REPORT [...] breast cancer at age 80. LOCATION: [facility] BREAST COMPOSITION: Scattered areas fibroglandular density. [...] MD on 05/11/2022 at 12:45 Normal [facility] CBC AUTO DIFFon 02-21-2022 BASO # 0.0 103/ul Normal 0.0-0.1 [facility] Comment on above: Performed By: #### I WIL VITAD #### [facility] [address] [place] [address] Dr. Ryann Pearce Basophils/100 WBC (Bld) 0.5 % Normal 0.2-2.0 [facility] Comment on above: Performed By: #### Colin DE LA TORRE VITAD #### [facility] [address] [place] [address] Dr. Ryann Pearce EO # 0.2 103/ul Normal 0.0-0.7 [facility] Comment on above: Performed By: #### Colin DE LA TORRE VITAD #### [facility] [address] [place] [address] Dr. Ryann Pearce Eosinophils/100 WBC (Bld) 3.9 % Normal 0.9-7.0 [facility] Comment on above: Performed By: #### Colin DE LA TORRE VITAD #### [facility] [address] [place] [address] Dr. Ryann Pearce Erythrocyte distribution width (RBC) [Ratio] 12.8 % Normal 11.0-15.0 [facility] Comment on above: Performed By: #### Colin DE LA TORRE VITAD #### [facility] [address] [place] [address] Dr. Ryann Pearce Hematocrit (Bld) [Volume fraction] 36.5 % Normal 36.0-48.0 [facility] Comment on above: Performed By: #### I WIL, VITAD #### [facility] [address] [address] [address] Ryann Pearce Hemoglobin (Bld) [Mass/Vol] 11.9 g/dL Critically low 12.0-16.0 [facility] Comment on above: Performed By: #### I WIL, VITAD #### [facility] [address] [place] [address] Dr. Ryann Pearce IG # 0.01 10e3/ul Normal 0.00-0.03 [facility] Comment on above: Performed By: #### I WIL, VITAD #### [facility] [address] [place] [address] Dr. Ryann Pearce IG % 0.2 % Normal 0.0-0.5 [facility] Comment on above: Performed By: #### I WIL, VITAD #### [facility] [address] [place] [address] Dr. Ryann Pearce LYMPH # 1.1 103/ul Critically low 1.2-3.8 [facility] Comment on above: Performed By: #### I WIL, VITAD #### [facility] [address] [place] [address] Dr. Ryann Pearce Lymphocytes/100 WBC (Bld) 25.5 % Normal 20.5-60.0 [facility] Comment on above: Performed By: #### I WIL, VITAD #### [facility] [address] [place] [address] Dr. Ryann Pearce MANUAL DIFF REQ NO Normal [facility] Comment on above: Performed By: #### I WIL, VITAD #### [facility] [address] [place] [address] Dr. Ryann Pearce MCH (RBC) [Entitic mass] 29.6 pg Normal 26.7-34.0 [facility] Comment on above: Performed By: #### I WIL, VITAD #### [facility] [address] [place] [address] Dr. Ryann Pearce MCHC (RBC) [Mass/Vol] 32.6 g/dL Normal 29.9-35.2 [facility] Comment on above: Performed By: #### Colin DE LA TORRE VITAD #### [facility] [address] [place] [address] Dr. Ryann Pearce MCV (RBC) [Entitic vol] 90.8 fL Normal 81.0-99.0 [facility] Comment on above: Performed By: #### Colin DE LA TORRE VITAD #### [facility] [address] [place] [address] Dr. Ryann Pearce MONO # 0.4 103/ul Normal 0.3-0.8 [facility] Comment on above: Performed By: #### Colin DE LA TORRE VITAD #### [facility] [address] [place] [address] Dr. Ryann Pearce Monocytes/100 WBC (Bld) 10.4 % Normal 1.7-12.0 [facility] Comment on above: Performed By: #### Colin DE LA TORRE VITAD #### [facility] [address] [place] [address] Dr. Ryann Pearce NEUT # 2.5 103/ul Normal 1.4-6.5 [facility] Comment on above: Performed By: #### Colin DE LA TORRE VITAD #### [facility] [address] [place] [address] Dr. Ryann Pearce Neutrophils/100 WBC (Bld) 59.5 % Normal 43.0-75.0 [facility] Comment on above: Performed By: #### Colin DE LA TORRE VITAD #### [facility] [address] [place] [address] Dr. Ryann Pearce Platelet mean volume (Bld) [Entitic vol] 9.1 fL Critically low 9.5-13.5 [facility] Comment on above: Performed By: #### Colin DE LA TORRE VITAD #### [facility] [address] [place] [address] Dr. Ryann Pearce PLT 283 103/ul Normal 150-450 [facility] Comment on above: Performed By: #### Colin DE LA TORRE VITAD #### [facility] [address] [place] [address] Dr. Ryann Pearce RBC 4.02 106/ul Critically low 4.20-5.40 [facility] Comment on above: Performed By: #### I WIL, VITAD #### [facility] [address] [place] [address] Dr. Ryann Pearce WBC 4.2 103/ul Normal 4.0-11.0 [facility] Comment on above: Performed By: #### I WIL, VITAD #### [facility] [address] [place] [address] Dr. Ryann Pearce PROF 14(COMP METB)on 022 Albumin [Mass/Vol] 3.5 g/dL Normal 3.4-5.0 [facility] Comment on above: Performed By: #### I WIL, VITAD #### [facility] [address] [place] [address] Dr. Ryann Pearce Albumin/Globulin [Mass ratio] 1.0 {ratio} Normal [facility] Comment on above: Performed By: #### I WIL, VITAD #### [facility] [address] [place] [address] Dr. Ryann Pearce ALP [Catalytic activity/Vol] 68 U/L Normal 46-116 [facility] Comment on above: Performed By: #### I WIL, VITAD #### [facility] [address] [place] [address] Dr. Ryann Pearce ALT [Catalytic activity/Vol] 22 U/L Normal 14-59 [facility] Comment on above: Performed By: #### I WIL, VITAD #### [facility] [address] [place] [address] Dr. Ryann Pearce Anion gap [Moles/Vol] 11.8 mmol/L Normal [facility] Comment on above: Performed By: #### I WIL, VITAD #### [facility] [address] [place] [address] Dr. Ryann Pearce AST [Catalytic activity/Vol] 21 U/L Normal 15-37 [facility] Comment on above: Performed By: #### I WLI, VITAD #### [facility] [address] [place] [address] Dr. Ryann Pearce Bilirubin [Mass/Vol] 0.5 mg/dL Normal 0.2-1.0 [facility] Comment on above: Performed By: #### I WIL, VITAD #### [facility] [address] [place] [address] Dr. Ryann Pearce Calcium [Mass/Vol] 8.9 mg/dL Normal 8.5-10.1 [facility] Comment on above: Performed By: #### I WIL, VITAD #### [facility] [address] [place] [address] Dr. Ryann Pearce Chloride [Moles/Vol] 104 mmol/L Normal 98-107 [facility] Comment on above: Performed By: #### I WIL, VITAD #### [facility] [address] [place] [address] Dr. Ryann Pearce CO2 [Moles/Vol] 29.1 mmol/L Normal 21.0-32.0 [facility] Comment on above: Performed By: #### I WIL, VITAD #### [facility] [address] [place] [address] Dr. Ryann Pearce Creatinine [Mass/Vol] 0.66 mg/dL Normal 0.55-1.02 [facility] Comment on above: Performed By: #### I WIL, VITAD #### [facility] [address] [place] [address] Dr. Ryann Pearce EGFR-AF TURKISH >60 Normal >=60 [facility] Comment on above: Performed By: #### I WIL, VITAD #### [facility] [address] [place] [address] Dr. Ryann Pearce EGFR-NON AF TURKISH >60 Normal >=60 [facility] Comment on above: Performed By: #### I WIL, VITAD #### [facility] [address] [place] [address] Dr. Ryann Pearce Globulin (S) [Mass/Vol] 3.4 g/dL Normal [facility] Comment on above: Performed By: #### I WIL, VITAD #### [facility] [address] [address] [address] Ryann Pearce Glucose [Mass/Vol] 106 mg/dL Normal 74-106 [facility] Comment on above: Performed By: #### I WIL, VITAD #### [facility] [address] [address] [address] Ryann Pearce Potassium [Moles/Vol] 3.9 mmol/L Normal 3.5-5.1 [facility] Comment on above: Performed By: #### I WIL, VITAD #### [facility] [address] [address] [address] Ryann Pearce Protein [Mass/Vol] 6.9 g/dL Normal 6.4-8.2 [facility] Comment on above: Performed By: #### I WIL, VITAD #### [facility] [address] [address] [address] Ryann Pearce Sodium [Moles/Vol] 141 mmol/L Normal 136-145 [facility] Comment on above: Performed By: #### I WIL, VITAD #### [facility] [address] [address] [address] Ryann Pearce Urea nitrogen [Mass/Vol] 14.0 mg/dL Normal 7.0-18.0 [facility] Comment on above: Performed By: #### I WIL, VITAD #### [facility] [address] [address] [address] Ryann Pearce Urea nitrogen/Creatinine [Mass ratio] 21.2 mg/mg Normal [facility] Comment on above: Performed By: #### I WIL, VITAD #### [facility] [address] [address] [address] Ryann Pearce XR knee RT 3Von 02-02-2022 XR knee RT 3V [facility] [employer] Other XR knee RT 3V [facility] [employer] Other XR knee RT 3V [address] [place] [address] [employer] Other XR knee RT 3V [address] [employer] Other XR knee RT 3V XRay Report [employer] Other XR knee RT 3V Signed [employer] Other XR knee RT 3V Patient: Billie Yeboah MR#: [id number] [employer] Other XR knee RT 3V [id number] [employer] Other XR knee RT 3V : 1945 Acct:[id number] [employer] Other XR knee RT 3V Age/Sex: 76 / F ADM Date: 02/02/22 [employer] Other XR knee RT 3V Loc: [facility] Room: Type: [facility] [employer] Other XR knee RT 3V Attending Dr: Sydney Oswald II, MD [employer] Other XR knee RT 3V Copies to: Sydney Oswald MD [employer] Other XR knee RT 3V Ordering Provider: Sydney Oswald MD [employer] Other XR knee RT 3V Date of Service: 02/02/22 [employer] Other XR knee RT 3V XR/XR knee RT 3V - NOT FOR ER USE: History of total right knee [employer] Other XR knee RT 3V replacement [employer] Other XR knee RT 3V RIGHT KNEE - 3 views N Guest [employer] Other XR knee RT 3V CLINICAL HISTORY: Follow-up right total knee arthroplasty [employer] Other XR knee RT 3V COMPARISON: Right knee 12/20/2021 [employer] Other XR knee RT 3V FINDINGS: [employer] Other XR knee RT 3V Right knee prosthesis without radiographic complication. No acute bony process. [employer] Other XR knee RT 3V XR/XR knee RT 3V - NOT FOR ER USE [employer] Other XR knee RT 3V IMPRESSION: [employer] Other XR knee RT 3V NO EVIDENCE OF HARDWARE COMPLICATION. [employer] Other XR knee RT 3V Impression dictated by: Migue Groves Jr., ElishaOSun02/02/2022 4:27 PM [employer] Other XR knee RT 3V Dictation Location: [place] [address] [employer] Other XR knee RT 3V Transcribed By: PWS 02/02/22 [facility] [employer] Other XR knee RT 3V Dictated By: Migue Groves Jr, DO 02/02/22 [facility] [employer] Other XR knee RT 3V Signed By: [employer] Other XR knee RT 3V 02/02/22 [facility] [employer] Other COVID-19 Positive/NegativeOr dered By: Sydney Oswald on 12-17-2021 SARS-CoV-2 (COVID-19) N gene BRAULIO+probe Ql (Resp) Negative Negative [facility] Comment on above: Testing for SARS-CoV -2 by RT-PCR This test was developed and its performance characteristics determined by [employer] ([employer]) and validated at the [facility]. This test has not been FDA cleared [...] count in urine sediment (number/area)Ordered By: Sydney Oswald on 12-07-2021 RBC Auto (Urine sed) [#/Area] 1-2 [HPF] 0-4 [facility] Automated leukocytes count i n urine sediment (number/area)Ordered By: Sydney Oswald on 12-07-2021 WBC Auto (Urine sed) [#/Area] None seen [HPF] 0-4 [facility] Basophils Auto (Bld) [#/Vol] Ordered By: Sydney Oswald on 12-07-2021 Basophils (Bld) [#/Vol] 0.0 10*3/uL 0.0-0.2 [facility] Basophils/100 WBC Auto (Bld) Ordered By: Sydney Oswald on 12-07-2021 Basophils/100 WBC (Bld) 0.9 % . [facility] Bilirubin Test strip Ql (U)O rdered By: Sydney Oswald on 12-07-2021 Bilirubin Ql (U) Negative Negative [facility] Blood hemoglobin measurement (mass/volume)Ordered By: Sydney Oswald on 12-07-2021 Hemoglobin (Bld) [Mass/Vol] 13.1 g/dL 11.8-15.4 [facility] Blood leukocytes automated c ount (number/volume)Ordered By: Sydney Oswald on 12-07-2021 WBC (Bld) [#/Vol] 3.8 10*3/uL 4.5-11.0 [facility] CT biopsyOrdered By: Sydney Oswald on 12-07-2021 CT biopsy 241 umol/L 0-285 [facility] Comment on above: Published reference interval for apparently healthy subjects between age 20 and 60 is 205 - 285 umol/L and in a poorly controlled diabetic population is 228 - 563 umol/L with a mean of 396 umol/L. Performed at: [id number] [place], [place] [id number] [employer] Maker: Fortunato Garcia PhD, Phone: [phone] Color Auto (U)Ordered By: Xuan Oswald on 12-07-2021 Color (U) Yellow Yellow [facility] Creatinine and Glomerular fi ltration rate.predicted panel (S/P/Bld)Ordered By: Sydney Oswald on 12-07-2021 Creatinine [Mass/Vol] 0.86 mg/dL 0.44-1.03 [facility] Eosinophils Auto (Bld) [#/Vo l]Ordered By: Sydney Oswald on 12-07-2021 Eosinophils (Bld) [#/Vol] 0.1 10*3/uL 0.0-0.45 [facility] Eosinophils/100 WBC Auto (Bl d)Ordered By: Sydney Oswald on 12-07-2021 Eosinophils/100 WBC (Bld) 2.4 % . [facility] Erythrocyte distribution wid th Auto (RBC) [Ratio]Ordered By: Sydney Oswald on 12-07-2021 Erythrocyte distribution width (RBC) [Ratio] 12.5 % 11.9-15.3 [facility] Estimated glomerular filtrat ion rate (GFR) non- AmericanOrdered By: Sydney Oswald on 12-07-2021 GFR/1.73 sq M.predicted among non-blacks MDRD (S/P/Bld) [Vol rate/Area] > 60 mL/Min [facility] Hematocrit Auto (Bld) [Volum e fraction]Ordered By: Sydney Oswald on 12-07-2021 Hematocrit (Bld) [Volume fraction] 39.0 % 34.0-46.4 [facility] Ketones Auto test strip (U) [Mass/Vol]Ordered By: Sydney Oswald on 12-07-2021 Ketones (U) [Mass/Vol] Negative Negative [facility] - Hematology and Cell countsOrdered By: Sydney Oswald on 12-07-2021 Nucleated RBC/100 WBC (Bld) [Ratio] 0.0 % 0-0.5 [facility] - UrinalysisOrder ed By: Sydney Oswald on 12-07-2021 Hyaline casts LM Ql (Urine sed) None seen [LPF] 0-8 [facility] Lymphocytes Auto (Bld) [#/Vo l]Ordered By: Sydney Oswald on 12-07-2021 Lymphocytes (Bld) [#/Vol] 1.0 10*3/uL 1.00-4.8 [facility] Lymphocytes/100 WBC Auto (Bl d)Ordered By: Sydney Oswald on 12-07-2021 Lymphocytes/100 WBC (Bld) 26.7 % . [facility] MCH Auto (RBC) [Entitic mass ]Ordered By: Sydney Oswald on 12-07-2021 MCH (RBC) [Entitic mass] 29.7 pg 24.7-34.3 [facility] MCHC Auto (RBC) [Mass/Vol]Or dered By: Sydney Oswald on 12-07-2021 MCHC (RBC) [Mass/Vol] 33.5 g/dL 32.0-35.0 [facility] MCV Auto (RBC) [Entitic vol] Ordered By: Sydney Oswald on 12-07-2021 MCV (RBC) [Entitic vol] 88.7 fL 80-100 [facility] Monocytes Auto (Bld) [#/Vol] Ordered By: Sydney Oswald on 12-07-2021 Monocytes (Bld) [#/Vol] 0.4 10*3/uL 0.0-0.8 [facility] Monocytes/100 WBC Auto (Bld) Ordered By: Sydney Oswald on 12-07-2021 Monocytes/100 WBC (Bld) 11.1 % . [facility] Neutrophils Auto (Bld) [#/Vo l]Ordered By: Sydney Oswald on 12-07-2021 Neutrophils (Bld) [#/Vol] 2.2 10*3/uL 1.8-7.7 [facility] Neutrophils/100 WBC Auto (Bl d)Ordered By: Sydney Oswald on 12-07-2021 Neutrophils/100 WBC (Bld) 58.9 % . [facility] Nitrite Test strip Ql (U)Ord ered By: Sydney Oswald on 12-07-2021 Nitrite Ql (U) Negative Negative [facility] No Panel InformationOrdered By: Sydney Oswald on 12-07-2021 Estimated GFR () > 60 mL/Min [facility] Comment on above: GFR estimated refere nce range: According to KDOQI guidelines, <60 ml/min/1.73m2 is sufficient to diagnose a patient with chronic kidney disease. Pharmacy Creatinine Clearance (Chem N/A [facility] Platelet mean volume Auto (B ld) [Entitic vol]Ordered By: Sydney Oswald on 12-07-2021 Platelet mean volume (Bld) [Entitic vol] 8.2 fL 6.3-10.7 [facility] Platelets Auto (Bld) [#/Vol] Ordered By: Sydney Oswald on 12-07-2021 Platelets (Bld) [#/Vol] 274 10*3/uL 150-450 [facility] Protein Auto test strip (U) [Mass/Vol]Ordered By: Sydney Oswald on 12-07-2021 Protein (U) [Mass/Vol] Negative Negative [facility] RBC Auto (Bld) [#/Vol]Ordere d By: Sydney Oswald on 12-07-2021 RBC (Bld) [#/Vol] 4.40 10*6/uL 3.60-5.00 [facility] Serum or plasma calcium catalino urement (mass/volume)Ordered By: Sydney Oswald on 12-07-2021 Calcium [Mass/Vol] 9.3 mg/dL 8.2-10.2 [facility] Serum or plasma chloride juan surement (moles/volume)Ordered By: Sydney Oswald on 12-07-2021 Chloride [Moles/Vol] 99 mmol/L 95-114 [facility] Serum or plasma glucose catalino urement (mass/volume)Ordered By: Sydney Oswald on 12-07-2021 Glucose [Mass/Vol] 94 mg/dL 70-100 [facility] Comment on above: ADA recommended refe rence range Random Glucose Reference Range is dependent on time and content of last meal. Glucose of more than 200 mg/dL in a nonstressed, ambulatory subject supports the diagnosis of Diabetes Mellitus. Serum or plasma potassium me asurement (moles/volume)Ordered By: Sydney Oswald on 12-07-2021 Potassium [Moles/Vol] 4.4 mmol/L 3.5-5.1 [facility] Serum or plasma sodium measu rement (moles/volume)Ordered By: Sydney Osawld on 12-07-2021 Sodium [Moles/Vol] 139 mmol/L 136-146 [facility] Serum or plasma total carbon dioxide measurement (moles/volume)Ordered By: Sydney Oswald on 12-07-2021 CO2 [Moles/Vol] 26.7 mmol/L 22.0-30.0 [facility] Serum or plasma urea nitroge n measurement (mass/volume)Ordered By: Sydney Oswald on 12-07-2021 Urea nitrogen [Mass/Vol] 14 mg/dL 9- [facility] Specific gravity Auto test s trip (U) [Rel density]Ordered By: Sydney Oswald on 12-07-2021 Specific gravity (U) [Rel density] 1.010 1.001-1.030 [facility] Squamous epithelial cells de tection in urine sediment by light microscopyOrdered By: Sydney Oswald on 12-07-2021 Epithelial cells.squamous LM Ql (Urine sed) None seen [HPF] 0-2 [facility] Urine bacteria detection by automated methodOrdered By: Sydney Oswald on 12-07-2021 Bacteria Auto Ql (U) None seen None Seen [facility] Urine clarity by refractomet ry automatedOrdered By: Sydney Oswald on 12-07-2021 Clarity Refractometry automated (U) Clear Clear [facility] Urine glucose measurement by automated test strip (mass/volume)Ordered By: Sydney Oswald on 12-07-2021 Glucose Auto test strip (U) [Mass/Vol] Normal mg/dL Normal [facility] Urine hemoglobin detection b y automated test stripOrdered By: Sydney Oswald on 12-07-2021 Hemoglobin Auto test strip Ql (U) Negative Negative [facility] Urine leukocyte esterase det ection by automated test stripOrdered By: Sydney Oswald on 12-07-2021 Leukocyte esterase Auto test strip Ql (U) 1+ Negative [facility] Urobilinogen Auto test strip (U) [Mass/Vol]Ordered By: Sydney Oswald on 12-07-2021 Urobilinogen (U) [Mass/Vol] Normal mg/dL Normal [facility] pH Auto test strip (U)Ordere d By: Sydney Oswald on 12-07-2021 pH (U) 7.5 [pH] 5.0-9.0 [facility] CBC AUTO DIFFon 09-01-2021 BASO # 0.0 103/ul Normal 0.0-0.1 [facility] Comment on above: Performed By: #### Colin DE LA TORRE, VITAD #### [facility] [address] [place] [address] Dr. Ryann Pearce Basophils/100 WBC (Bld) 0.8 % Normal 0.2-2.0 [facility] Comment on above: Performed By: #### Colin DE LA TORRE, VITAD #### [facility] [address] [place] [address] Dr. Ryann Pearce EO # 0.2 103/ul Normal 0.0-0.7 [facility] Comment on above: Performed By: #### Colin DE LA TORRE, VITAD #### [facility] [address] [address] [address] Ryann Pearce Eosinophils/100 WBC (Bld) 4.1 % Normal 0.9-7.0 [facility] Comment on above: Performed By: #### Colin DE LA TORRE, VITAD #### [facility] [address] [place] [address] Dr. Ryann Pearce Erythrocyte distribution width (RBC) [Ratio] 12.5 % Normal 11.0-15.0 [facility] Comment on above: Performed By: #### Colin DE LA TORRE, VITAD #### [facility] [address] [place] [address] Dr. Ryann Pearce Hematocrit (Bld) [Volume fraction] 37.6 % Normal 36.0-48.0 [facility] Comment on above: Performed By: #### Colin DE LA TORRE, VITAD #### [facility] [address] [place] [address] Dr. Ryann Pearce Hemoglobin (Bld) [Mass/Vol] 12.3 g/dL Normal 12.0-16.0 [facility] Comment on above: Performed By: #### I WIL, VITAD #### [facility] [address] [place] [address] Dr. Ryann Pearce IG # 0.02 10e3/ul Normal 0.00-0.03 [facility] Comment on above: Performed By: #### I WIL, VITAD #### [facility] [address] [place] [address] Dr. Ryann Pearce IG % 0.5 % Normal 0.0-0.5 [facility] Comment on above: Performed By: #### I WIL, VITAD #### [facility] [address] [place] [address] Dr. Ryann Pearce LYMPH # 1.1 103/ul Critically low 1.2-3.8 [facility] Comment on above: Performed By: #### Colin DE LA TORRE VITAD #### [facility] [address] [place] [address] Dr. Ryann Pearce Lymphocytes/100 WBC (Bld) 29.0 % Normal 20.5-60.0 [facility] Comment on above: Performed By: #### Colin DE LA TORRE VITAD #### [facility] [address] [place] [address] Dr. Ryann Pearce MANUAL DIFF REQ NO Normal [facility] Comment on above: Performed By: #### Colin DE LA TORRE, VITAD #### [facility] [address] [place] [address] Dr. Ryann Pearce MCH (RBC) [Entitic mass] 30.5 pg Normal 26.7-34.0 [facility] Comment on above: Performed By: #### I WIL, VITAD #### [facility] [address] [place] [address] Dr. Ryann Pearce MCHC (RBC) [Mass/Vol] 32.7 g/dL Normal 29.9-35.2 [facility] Comment on above: Performed By: #### Colin DE LA TORRE, VITAD #### [facility] [address] [place] [address] Dr. Ryann Pearce MCV (RBC) [Entitic vol] 93.3 fL Normal 81.0-99.0 [facility] Comment on above: Performed By: #### I WIL, VITAD #### [facility] [address] [place] [address] Dr. Ryann Pearce MONO # 0.5 103/ul Normal 0.3-0.8 [facility] Comment on above: Performed By: #### I WIL, VITAD #### [facility] [address] [place] [address] Dr. Ryann Pearce Monocytes/100 WBC (Bld) 13.1 % Critically high 1.7-12.0 [facility] [facility] Comment on above: Performed By: #### Colin DE LA TORRE, VITAD #### [facility] [address] [place] [address] Dr. Ryann Pearce NEUT # 2.0 103/ul Normal 1.4-6.5 [facility] Comment on above: Performed By: #### Colin DE LA TORRE VITAD #### [facility] [address] [place] [address] Dr. Ryann Pearce Neutrophils/100 WBC (Bld) 52.5 % Normal 43.0-75.0 [facility] Comment on above: Performed By: #### Colin DE LA TORRE VITAD #### [facility] [address] [place] [address] Dr. Ryann Pearce Platelet mean volume (Bld) [Entitic vol] 9.0 fL Critically low 9.5-13.5 [facility] Comment on above: Performed By: #### Colin DE LA TORRE VITAD #### [facility] [address] [place] [address] Dr. Ryann Pearce PLT 229 103/ul Normal 150-450 [facility] Comment on above: Performed By: #### Colin DE LA TORRE, VITAD #### [facility] [address] [place] [address] Dr. Raynn Pearce RBC 4.03 106/ul Critically low 4.20-5.40 The [facility] Comment on above: Performed By: #### Colin DE LA TORRE VITAD #### [facility] [address] [place], [place] [id number] Dr. Ryann Pearce WBC 3.9 103/ul Critically low 4.0-11.0 [facility] Comment on above: Performed By: #### I NIKI DE LA TORRE #### [facility] [address] [place] [address] Dr. Ryann Pearce PROF 14(COMP METB)on 022 Albumin [Mass/Vol] 3.1 g/dL Critically low 3.5-5.0 Th [facility] Comment on above: Performed By: #### C MP #### [facility] [address] [place] [address] Dr. Ryann Pearce Albumin/Globulin [Mass ratio] 0.9 {ratio} Normal [facility] Comment on above: Performed By: #### C MP #### [facility] [address] [place] [address] Dr. Ryann Pearce ALP [Catalytic activity/Vol] 66 U/L Normal 38-126 [facility] Comment on above: Performed By: #### C MP #### [facility] [address] [place] [address] Dr. Ryann Pearce ALT [Catalytic activity/Vol] 28 U/L Normal 9-52 [facility] Comment on above: Performed By: #### C MP #### [facility] [address] [place] [address] Dr. Ryann Pearce Anion gap [Moles/Vol] 9.8 mmol/L Normal [facility] Comment on above: Performed By: #### C MP #### [facility] [address] [place] [address] Dr. Ryann Pearce AST [Catalytic activity/Vol] 22 U/L Normal 14-36 [facility] Comment on above: Performed By: #### C MP #### [facility] [address] [place] [address] Dr. Ryann Pearce Bilirubin [Mass/Vol] 0.5 mg/dL Normal 0.2-1.3 [facility] Comment on above: Performed By: #### C MP #### [facility] [address] [place] [address] Dr. Ryann Pearce Calcium [Mass/Vol] 8.5 mg/dL Normal 8.4-10.2 The [facility] Comment on above: Performed By: #### C MP #### [facility] [address] [place] [address] Dr. Ryann Pearce Chloride [Moles/Vol] 102 mmol/L Normal 98-107 [facility] Comment on above: Performed By: #### C MP #### [facility] [address] [address] [address] Ryann Pearce CO2 [Moles/Vol] 31.7 mmol/L Critically high 22.0-30.0 [facility] Comment on above: Performed By: #### C MP #### [facility] [address] [place] [address] Dr. Ryann Pearce Creatinine [Mass/Vol] 0.91 mg/dL Normal 0.52-1.04 [facility] Comment on above: Performed By: #### C MP #### [facility] [address] [place] [address] Dr. Ryann Pearce EGFR-AF TURKISH >60 Normal >=60 [facility] Comment on above: Performed By: #### C MP #### [facility] [address] [place] [address] Dr. Ryann Pearce EGFR-NON AF TURKISH =60 Normal >=60 [facility] Comment on above: Performed By: #### C MP #### [facility] [address] [place] [address] Dr. Ryann Pearce Globulin (S) [Mass/Vol] 3.3 g/dL Normal [facility] Comment on above: Performed By: #### C MP #### [facility] [address] [address] [address] Ryann Pearce Glucose [Mass/Vol] 89 mg/dL Normal 74-106 [facility] Comment on above: Performed By: #### C MP #### [facility] [address] [place] [address] Dr. Ryann Pearce Potassium [Moles/Vol] 4.5 mmol/L Normal 3.4-5.0 [facility] Comment on above: Performed By: #### C MP #### [facility] [address] [address] [address] Ryann Pearce Protein [Mass/Vol] 6.4 g/dL Normal 6.1-8.2 [facility] Comment on above: Performed By: #### C MP #### [facility] [address] [address] [address] Ryann Pearce Sodium [Moles/Vol] 139 mmol/L Normal 137-145 [facility] Comment on above: Performed By: #### C MP #### [facility] [address] [address] [address] Ryann Pearce Urea nitrogen [Mass/Vol] 14.0 mg/dL Normal 7.0-17.0 [facility] Comment on above: Performed By: #### C MP #### [facility] [address] [address] [address] Ryann Pearce Urea nitrogen/Creatinine [Mass ratio] 15.4 mg/mg Normal [facility] Comment on above: Performed By: #### C MP #### [facility] [address] [address] [address] Ryann Pearce Vital Signs Date Time Vital Sign Value Performing Clinician Facility 08-21-2024 13:52-0500 Body height 167.64 cm Gisella Chamorro MD Work Phone: [facility] 08-21-2024 13:52-0500 Body mass index (BMI) [Ratio] 22.8 kg/m2 Gisella Chamorro MD Work Phone: [facility] 08-21-2024 13:52-0500 Body weight 64.41 kg Gisella Chamorro MD Work Phone: [facility] 08-21-2024 13:52-0500 Diastolic blood pressure 76 mm[Hg] Gisella Chamorro MD Work Phone: [facility] 08-21-2024 13:52-0500 Heart rate 96 /min Gisella Chamorro MD Work Phone: [facility] 08-21-2024 13:52-0500 Systolic blood pressure 127 mm[Hg] Gisella Chamorro MD Work Phone: [facility] 06-21-2024 10:10-0500 Diastolic blood pressure 84 mm[Hg] Gisella Chamorro MD Work Phone: [facility] 06-21-2024 10:10-0500 Heart rate 97 /min Gisella Chamorro MD Work Phone: [facility] 06-21-2024 10:10-0500 SaO2% (BldA) [Mass fraction] 96 % Gisella Chamorro MD Work Phone: [facility] 06-21-2024 10:10-0500 Systolic blood pressure 148 mm[Hg] Gisella Chamorro MD Work Phone: [facility] 06-21-2024 09:55-0500 Respiratory rate 16 /min Gisella Chamorro MD Work Phone: [facility] 06-21-2024 08:00-0500 Body height 167.64 cm Gisella Chamorro MD Work Phone: [facility] 06-21-2024 08:00-0500 Body weight 63.5 kg Gisella Chamorro MD Work Phone: [facility] 05-30-2024 14:40-0500 Body height 165.1 cm Gisella Chamorro MD Work Phone: [facility] 05-30-2024 14:40-0500 Body mass index (BMI) [Ratio] 24 kg/m2 Gisella Chamorro MD Work Phone: [facility] 05-30-2024 14:40-0500 Body weight 65.4 kg Gisella Chamorro MD Work Phone: [facility] 05-30-2024 14:40-0500 Diastolic blood pressure 77 mm[Hg] Gisella Chamorro MD Work Phone: [facility] 05-30-2024 14:40-0500 Heart rate 111 /min Gisella Chamorro MD Work Phone: [facility] 05-30-2024 14:40-0500 Systolic blood pressure 122 mm[Hg] Gisella Chamorro MD Work Phone: [facility] 02-28-2024 14:29-0400 Body height 167.6 cm Pacc 2 Work Phone: [facility] 02-28-2024 14:29-0400 Body mass index (BMI) [Ratio] 23.77 kg/m2 Pacc 2 Work Phone: [facility] 02-28-2024 14:29-0400 Body temperature 97.7 [degF] Pacc 2 Work Phone: [facility] 02-28-2024 14:29-0400 Body weight 66.8 kg Pacc 2 Work Phone: [facility] 02-28-2024 14:29-0400 Diastolic blood pressure 82 mm[Hg] Pacc 2 Work Phone: [facility] 02-28-2024 14:29-0400 Heart rate 120 /min Pacc 2 Work Phone: [facility] 02-28-2024 14:29-0400 Respiratory rate 18 /min Pacc 2 Work Phone: [facility] 02-28-2024 14:29-0400 SaO2% (BldA) [Mass fraction] 97 % Pacc 2 Work Phone: [facility] 02-28-2024 14:29-0400 Systolic blood pressure 140 mm[Hg] Pacc 2 Work Phone: [facility] 02-23-2024 14:03-0400 Body height 167.6 cm Funmilayo Odell MD Work Phone: [facility] 02-23-2024 14:03-0400 Body mass index (BMI) [Ratio] 23.08 kg/m2 Funmilayo Odell MD Work Phone: [facility] 02-23-2024 14:03-0400 Body temperature 97.5 [degF] Funmilayo Odell MD Work Phone: [facility] 02-23-2024 14:03-0400 Body weight 64.86 kg Funmilayo Odell MD Work Phone: [facility] Comment on above: per pt. 02-23-2024 14:03-0400 Diastolic blood pressure 83 mm[Hg] Funmilayo Odell MD Work Phone: [facility] 02-23-2024 14:03-0400 Heart rate 103 /min Funmilayo Odell MD Work Phone: [facility] 02-23-2024 14:03-0400 SaO2% (BldA) [Mass fraction] 94 % Funmilayo Odell MD Work Phone: [facility] 02-23-2024 14:03-0400 Systolic blood pressure 134 mm[Hg] Funmilayo Odell MD Work Phone: [facility] 11-03-2023 14:18-0400 Body temperature 97.11 [degF] Funmilayo Odell MD Work Phone: [facility] 11-03-2023 14:18-0400 Diastolic blood pressure 87 mm[Hg] Funmilayo Odell MD Work Phone: [facility] 11-03-2023 14:18-0400 Heart rate 85 /min Funmilayo Odell MD Work Phone: [facility] 11-03-2023 14:18-0400 SaO2% (BldA) [Mass fraction] 98 % Funmilayo Odell MD Work Phone: [facility] 11-03-2023 14:18-0400 Systolic blood pressure 179 mm[Hg] Funmilayo Odell MD Work Phone: [facility] 12-07-2022 10:00-0400 Body height 165.1 cm Ivette Taylor Other [employer] Other 12-07-2022 10:00-0400 Body mass index (BMI) [Ratio] 24.96 kg/m2 Ivette Taylor Other [employer] Other 12-07-2022 10:00-0400 Body weight 68.04 kg Ivette Taylor Other [facility] [employer] Other 10-27-2022 13:59-0400 Diastolic blood pressure 74 mm[Hg] Funmilayo Odell MD Work Phone: [facility] 10-27-2022 13:59-0400 Heart rate 98 /min Funmilayo Odell MD Work Phone: [facility] 10-27-2022 13:59-0400 SaO2% (BldA) [Mass fraction] 96 % Funmilyao Odell MD Work Phone: [facility] 10-27-2022 13:59-0400 Systolic blood pressure 137 mm[Hg] Funmilayo Odell MD Work Phone: [facility] 09-21-2022 11:31-0400 Diastolic blood pressure 90 mm[Hg] MD Gisella Chamorro Work Phone: [facility] 09-21-2022 11:31-0400 Heart rate 94 /min MD Gisella Chamorro Work Phone: [facility] 09-21-2022 11:31-0400 Respiratory rate 18 /min MD Gisella Chamorro Work Phone: [facility] 09-21-2022 11:31-0400 SaO2% (BldA) [Mass fraction] 98 % MD Gisella Chamorro Work Phone: [facility] 09-21-2022 11:31-0400 Systolic blood pressure 146 mm[Hg] MD Gisella Chamorro Work Phone: [facility] 09-21-2022 10:09-0400 Body height 167.64 cm MD Gisella Chamorro Work Phone: [facility] 09-21-2022 10:09-0400 Body temperature 98.7 [degF] MD Gisella Chamorro Work Phone: [facility] 09-21-2022 10:09-0400 Body weight 64.41 kg MD Gisella Chamorro Work Phone: [facility] 01-05-2022 14:45-0400 Body height 165.1 cm Sydney Andersenle ZENOBIA Other [employer] Other 01-05-2022 14:45-0400 Body mass index (BMI) [Ratio] 22.96 kg/m2 Sydney AndersenBooRah Other [employer] Other 01-05-2022 14:45-0400 Body weight 62.6 kg Sydney AndersenBooRah Other [facility] [employer] Other 12-20-2021 12:31-0400 Diastolic blood pressure 94 mm[Hg] MD Gisella Chamorro Work Phone: [facility] 12-20-2021 12:31-0400 Heart rate 78 /min MD Gisella Chamorro Work Phone: [facility] 12-20-2021 12:31-0400 Respiratory rate 16 /min MD Gisella Chamorro Work Phone: [facility] 12-20-2021 12:31-0400 SaO2% (BldA) [Mass fraction] 99 % MD Gisella Chamorro Work Phone: [facility] 12-20-2021 12:31-0400 Systolic blood pressure 172 mm[Hg] MD Gisella Chamorro Work Phone: [facility] 12-20-2021 09:35-0400 Body temperature 97.8 [degF] MD Gisella Chamorro Work Phone: [facility] 12-20-2021 09:35-0400 Inhaled oxygen flow rate 6 L/min MD Gisella Chamorro Work Phone: [facility] 12-20-2021 08:23-0400 Body height 167.64 cm MD Gisella Chamorro Work Phone: [facility] 12-20-2021 08:23-0400 Body mass index (BMI) [Ratio] 23.8 kg/m2 MD Gisella Chamorro Work Phone: [facility] 12-20-2021 08:23-0400 Body weight 67 kg MD Gisella Chamorro Work Phone: [facility] 11-10-2021 10:45-0400 Body height 165.1 cm Sydney Darek II Other [employer] Other 11-10-2021 10:45-0400 Body mass index (BMI) [Ratio] 23.13 kg/m2 Sydney Darek II Other [employer] Other 11-10-2021 10:45-0400 Body weight 63.05 kg Sydney Latah II Other [employer] Other 04-20-2021 11:45-0400 Body height 165.1 cm Manoj Forbes Other [employer] Other 04-20-2021 11:45-0400 Body mass index (BMI) [Ratio] 23.13 kg/m2 Manoj Forbes Other [employer] Other 04-20-2021 11:45-0400 Body weight 63.05 kg Manoj Forbes Other [employer] Other 04-20-2021 11:45-0400 Diastolic blood pressure 106 mm[Hg] Manoj Forbes Other [employer] Other 04-20-2021 11:45-0400 Systolic blood pressure 155 mm[Hg] Manoj Forbes Other [employer] Other Encounters Encounter Date Encounter Type Care Provider Facility Start: 08-21-2024 End: 08-21-2024 ambulatory Gisella Chamorro MD Work Phone: [facility] Work Phone: Start: 08-21-2024 End: 08-21-2024 Patient encounter procedure Gisella Chamorro MD Work Phone: [facility] Work Phone: Start: 07-22-2024 End: 07-22-2024 Patient encounter procedure Gisella Chamorro MD Work Phone: [facility] [address] Work Phone: Start: 07-22-2024 End: 07-22-2024 ambulatory Gisella Chamorro MD Work Phone: [facility] Work Phone: Start: 06-25-2024 Non-patient / Non-visit Pepe Chamorro MD Work Phone: [facility] Work Phone: Start: 06-21-2024 Non-patient / Non-visit Pepe Chamorro MD Work Phone: [facility] Work Phone: Start: 06-21-2024 End: 06-21-2024 Admission to same day surgery center Gisella Chamorro MD Work Phone: [facility] Work Phone: Start: 06-21-2024 End: 06-21-2024 ambulatory Gisella Chamorro Facility:[facility] Start: 05-30-2024 End: 05-30-2024 Patient encounter procedure Gisella Chamorro MD Work Phone: [facility] Work Phone: Start: 04-01-2024 End: 04-01-2024 Patient encounter procedure MD Gisella Chamorro Work Phone: [facility] [address] [place] Work Phone: Start: 04-01-2024 End: 04-01-2024 ambulatory MD Gisella Chamorro Work Phone: [facility] Work Phone: Start: 03-19-2024 End: 03-19-2024 Evaluation and management of inpatient FUNMILAYO ODELL Facility:[facility] Start: 02-28-2024 End: 02-28-2024 Admission to [...] Start: 02-28-2024 End: 02-28-2024 Preprocedural examination done [facility] 2 Work Phone: [facility] Work Phone: Start: 02-28-2024 End: 02-28-2024 ambulatory ZAIDA HERNANDEZ Facility:[facility] Start: 02-28-2024 Encounter for other preprocedural examination FUNMILAYO ODELL [facility] Start: 02-23-2024 End: 02-23-2024 ambulatory FUNMILAYO ODELL Facility:[facility] Start: 02-23-2024 End: 02-23-2024 Patient encounter procedure Funmilayo Odell MD Work Phone: Colorectal Surgery Comment on above: Hemorrhoids, unspeci fied hemorrhoid type (Primary Dx) Start: 11-03-2023 End: 11-03-2023 ambulatory FUNMILAYO ODELL Facility:[facility] Start: 11-03-2023 End: 11-03-2023 Patient encounter procedure Funmilayo Odell MD Work Phone: [facility] Surgery Comment on above: BRBPR (bright red bl ood per rectum) (Primary Dx); Hemorrhoids, unspecified hemorrhoid type; Pelvic floor dysfunction Start: 10-11-2023 Telephone encounter Funmilayo arizmendi MD Work Phone: Colorectal Surgery Comment on above: Received Outside [facility] Records; Appointment Start: 04-10-2023 End: 04-10-2023 ambulatory Manoj Forbes Other [employer] Other Start: 04-10-2023 Telephone encounter Manoj MCNEIL [facility] Start: 01-04-2023 End: 01-04-2023 ambulatory Ivette Taylor Other [employer] Other Start: 01-04-2023 Office outpatient vi sit 15 minutes Ivette Taylor [facility] Start: 12-23-2022 End: 12-23-2022 ambulatory MD Gisella Chamorro Work Phone: [facility] Work Phone: Start: 12-23-2022 End: 12-23-2022 Patient encounter procedure MD Gisella Chamorro Work Phone: [facility] Start: 12-07-2022 Office outpatient ne w 30 minutes Ivette Taylor [facility] Start: 12-07-2022 End: 12-07-2022 ambulatory MD Gisella Chamorro Work Phone: [facility] Work Phone: Start: 12-07-2022 End: 12-07-2022 Patient encounter procedure MD Gisella Chamorro Work Phone: [facility] Start: 10-27-2022 End: 10-27-2022 Patient encounter procedure Funmilayo Odell MD Work Phone: Colorectal Surgery Comment on above: Hemorrhoids, unspeci fied hemorrhoid type (Primary Dx) Start: 09-22-2022 End: 09-22-2022 ambulatory Manoj Forbes Other [employer] Other Start: 09-22-2022 Telephone encounter Manoj [facility] Start: 09-21-2022 End: 09-21-2022 Admission to same day surgery center MD Gisella Chamorro Work Phone: [facility] Work Phone: Start: 09-21-2022 End: 09-21-2022 ambulatory MD Gisella Chamorro Work Phone: [facility] Work Phone: Start: 08-23-2022 End: 08-24-[address] DOCTOR MAHARAJ Facility:[facility] Start: 08-04-2022 End: 08-04-2022 ambulatory Manoj Forbes Other [facility] [employer] Other Start: 08-04-2022 Telephone encounter Manoj [facility] Start: 07-06-2022 End: 07-07-[address] GISELLA CHAMORRO . Facility:[facility] Start: 06-06-2022 End: 06-07-[address] GISELLA CHAMORRO . Facility:[facility] Start: 05-11-2022 End: 05-12-[address] GISELLA CHAMORRO . Facility:[facility] Start: 04-04-2022 End: 04-04-2022 ambulatory Manoj Forbes Other [employer] Other Start: 04-04-2022 Telephone encounter Manoj [facility] Start: 03-16-2022 End: 03-16-2022 Patient encounter procedure MD Gisella Chamorro Work Phone: [facility] Start: 02-23-2022 End: 02-23-2022 Discharged Recurring MD Gisella Chamorro Work Phone: [facility] Start: 02-21-2022 End: 02-22-[address] LITA HANSEN Facility:[facility] Start: 02-02-2022 (Post-Op) Post-Op Sydney Darek II [facility] Start: 02-02-2022 End: 02-02-2022 ambulatory Sydney Andersenle II Other [employer] Other Start: 02-02-2022 End: 02-02-2022 Patient encounter procedure MD Gisella Pruitt Phone: [facility] Start: 01-05-2022 (Post-Op) Post-Op Sydney Darek II [facility] Start: 01-05-2022 End: 01-05-2022 ambulatory Sydney Andersenle II Other [employer] Other Start: 12-20-2021 End: 12-20-2021 Admission to same day surgery center MD Gisella Pruitt Phone: [facility] [place] Start: 12-17-2021 End: 12-17-2021 Patient encounter procedure MD Gisella Pruitt Phone: [facility]Pre-Surgical Testing Start: 12-10-2021 (Prolonged) Prolonge d Services Sydney Andersenle II [facility] Start: 12-10-2021 End: 12-10-2021 ambulatory Sydney Darek II Other [employer] Other Start: 12-10-2021 Telephone encounter Sydney Andersenle II [facility] Start: 12-07-2021 End: 12-07-2021 Patient encounter procedure MD Gisella Pruitt Phone: [facility] Start: 12-01-2021 End: 12-01-2021 ambulatory Sydney Latah II Other [employer] Other Start: 12-01-2021 Patient encounter procedure Sydney Leroyisle II [facility] Start: 11-18-2021 Encounter for preprocedural cardiovascular examination SYDNEY OSWALD [facility] Start: 11-12-2021 End: 11-13-2021 ambulatory SYDNEY OSWALD Facility:[facility] Start: 11-12-2021 End: 11-13-2021 Encounter for preprocedural cardiovascular examination SYDNEY OSWALD Facility:[facility] Start: 11-10-2021 End: 11-10-2021 ambulatory Sydney Oswald II Other [employer] Other Start: 11-10-2021 Office outpatient vi sit 40 minutes Sydney Oswald II [facility] Start: 09-01-2021 End: 09-02-[address] DOCTOR MAHARAJ Facility:[facility] Start: 08-13-2021 End: 08-13-2021 ambulatory Sydney Oswald II Other [employer] Other Start: 08-13-2021 Office outpatient ne w 45 minutes Sydney Oswald II [facility] Start: 04-20-2021 Patient encounter procedure Manoj Forbes [facility] Procedures Date Procedure Procedure Detail Performing Clinician Start: 06-21-2024 Flexible fiberoptic sigmoidoscopy Gisella Chamorro MD Work Phone: Start: 02-28-2024 Ecg routine ecg w/le ast 12 lds i&r only Zaida Hernandez PA-C Work Phone: Start: 12-23-2022 X-ray of right knee MD Gisella Chamorro Work Phone: Start: 12-07-2022 Plain X-ray of left hand MD Gisella Chamorro Work Phone: Start: 09-21-2022 Flexible fiberoptic sigmoidoscopy MD Gisella Chamorro Work Phone: Start: 03-16-2022 Plain X-ray of right femur MD Gisella Chamorro Work Phone: Start: 03-16-2022 Plain X-ray of right tibia and right fibula MD Gisella Chamorro Work Phone: Start: 03-16-2022 X-ray of right knee MD Gisella Chamorro Work Phone: Start: 02-02-2022 X-ray of right knee MD Gisella Chamorro Work Phone: Start: 12-20-2021 Total replacement of right knee joint MD Gisella Chamorro Work Phone: Start: 12-20-2021 X-ray of right knee MD Gisella Chamorro Work Phone: History of operative procedure on knee Manoj Forbes Other Plan of Treatment Date Care Activity Detail Author Start: 02-27-2027 Diabetes Screening Diabetes Screenin g [facility] Start: 06-21-2024 [facility] Start: 03-19-2024 End: 03-19-2024 Admission to same day surgery center 03/19/2024 7:30 AM EDT - 03/19/2024 8:40 AM EDT Surgery [facility] [address] [place] [address] [place] [id number] [place] [address] EXCISION RECTAL PROCIDENTIA W/ ANASTOMOSIS [facility] Comment on above: EXCISION RECTAL [...] physician 03/19/2024 7:30 AM EDT Hospital Encounter [facility] [address] [place] [address] [place] [address] [address] [place] [address] BRBPR (bright red blood per rectum) [K62.5] [facility] Comment on above: BRBPR (bright red bl ood per rectum) [K62.5] Start: 02-25-2024 Covid-19 Vaccine ( season) Covid-19 Vaccine () [facility] Start: 02-25-2024 Influenza vaccination C [facility] Start: 06-26-2023 Advance Directive Discussion Advance Directive Discussion [facility] Start: 06-26-2023 Behavioral Health Screening Behavioral Health Screening [facility] Start: 02-24-2023 Covid-19 Vaccine () Covid-19 Vaccine () [facility] Start: 02-24-2023 Influenza vaccination INFLUENZ A (Season Ended) [facility] [facility] Start: 09-21-2022 [facility] Start: 06-26-2022 ADVANCE DIRECTIVE DISCUSSION ADVANCE DIRECTIVE DISCUSSION [facility] Start: 06-26-2022 DEPRESSION ASSESSMENT DEPRESSION ASS ESSMENT [facility] Start: 12-20-2021 [facility] Work Phone: Start: 12-20-2021 [facility] Work Phone: Start: 06-16-2021 COVID-19 VACCINE (4 - Booster for Moderna series) COVID-19 VACCINE (4 - Booster for Moderna series) [facility] Start: 2010 BONE DENSITY BONE DENSITY [facility] Start: 2010 PNEUMOCOCCAL: 65+ (1 - PCV) PNEUMOCOCCAL: 65+ (1 - PCV) [facility] Start: 2010 Screening for osteoporosis Bone Density Screening [facility] Start: 2005 RSV Vaccine (1 - 1-d ose 60+ series) RSV Vaccine (1 - 1-dose 60+ series) [facility] Start: 1995 SHINGRIX VACCINE (1 of 2) SHINGRIX VACCINE (1 of 2) [facility] Start: 1990 DIABETES SCREEN DIABETES SCREEN [facility] Start: 1990 Diabetes Screening Diabetes Screenin g [facility] Start: 1964 Urine microalbumin profile [facility] Start: 1963 Annual PCP Team Formula Checker sudha Disease Visit Annual PCP Team Chronic Disease Visit [facility] Start: 1963 Anxiety Screening Anxiety Screening [facility] Start: 1963 Depression Screening Depression Scre ening [facility] Start: 1963 HEPATITIS C SCREENING HEPATITIS C [facility] Start: 1963 Hepatitis C screening Hepatitis C [facility] ECG COMPLETE ECG COMPLETE ECG Routine Preoperative examination Tachycardia 02/28/2024 1:49 PM EDT [facility] Work Phone: Patient Education [facility] Work Phone: [facility] Immunizations Immunization Date Immunization Notes Care Provider Fa cility 04-16-2021 COVID-19 mRNA-1273 (Moderna) MD Gisella Chamorro Work Phone: [facility] 09-01-2020 COVID-19 mRNA-1273 (Moderna) MD Gisella Chamorro Work Phone: [facility] 08-03-2020 COVID-19 mRNA-1273 (Moderna) MD Gisella Chamorro Work Phone: [facility] 04-02-2020 influenza virus vaccine, unspecified formulation Funmilayo Odell MD Work Phone: [facility] Payers Date Payer Category Payer Self-pay [id number] 2022 Private Health Insurance [facility] AARP SUPPLEMENT [id number] 2022-Present [phone] [address] [place] [address] Indemnity [id number] 2010 Medicare MEDICARE MEDICAR E A AND B [id number] 2010-Present [phone] [address] [address] [place] [address] Medicare [id number] 1959 Medicare [id number] 1959 Unknown [id number] 1945 Unknown [id number] .593 1945 Unknown [id number] .593 1945 Unknown [id number] [id number] .593 1945 Unknown [id number] [id number] .593 1945 Unknown [id number] [id number] .593 1945 Unknown [id number] [id number] .593 1945 Unknown [id number] .593 Unknown [id number] .531 Unknown [id number] .531 Unknown [id number] .531 Social History Date Type Detail Facility Unknown if ever smoked [facility] Other Start: 10-27-2022 End: 02-28-2024 Sex Assigned At [facility] Other Start: 12-20-2021 End: 09-21-2022 Tobacco smoking status NHIS Never smoked tobacco (finding) [facility] Start: 1945 Sex Assigned At Female [facility] Start: 10-27-2022 Tobacco use and exposure Smokeless tobacco non-user [facility] Start: 10-27-2022 End: 02-28-2024 Alcohol intake Lifetime non-drinker (finding) [facility] Start: 1945 Sex Assigned At Not on file [facility] Start: 10-27-2022 End: 02-28-2024 History of Social function [facility] National Score (1-10 0), lower number is lower risk 53 [facility] Start: 02-27-2024 Gender identity Identifies as female gender (finding) [facility] Start: 02-27-2024 Sexual orientation Heterosexual (finding) [facility] Start: 07-23-2024 Sex Patient sex unknown (finding) [facility] Start: 08-21-2024 Sex Female (finding) [facility] Medical Equipment Procedure Code Equipment Code Equipment Origin al Text Equipment Identifier Dates Arthroplasty, knee, total, minimally invasive Orthopaedic cement, non-medicated [id number] FDA Start: 12-20-2021 Arthroplasty, knee, total, minimally invasive Uncoated knee femur prosthesis [id number] FDA Start: 12-20-2021 Arthroplasty, knee, total, minimally invasive Tibial insert [id number] FDA Start: 12-20-2021 Arthroplasty, knee, total, minimally invasive Uncoated knee tibia prosthesis, metallic ()[id number] FDA Start: 12-20-2021 Arthroplasty, knee, total, minimally invasive Polyethylene patella prosthesis ()[id number] FDA Start: 12-20-2021 Goals Date Patient Goal Desired Activity /State Clinical Notes 04-20-2021 to 05-30-2024 Note Date & Type Note Facility 05-30-2024 Evaluation note Diagnosis Onset Date Resolution Acute Crohn's disease acute Dec 2023 2:34pm [facility] Work Phone: 1(363) 898-406012-05-2024 Evaluation note* Diagnosis Onset Date Resolution Status Admit Date Acute Crohn's disease acute Dec ember 2023 2:34pm Acute Crohn's disease acute Feb ruary 2024 1:39pm [facility] Work Phone: 1(332) 533-937509-24-2024 NoteHNO ID: [id number] Author: JULIANA NAVARRETE APRN.ACID FILLER Service: Anesthesiology Author Type: Nurse Labor Relations Specialist Type: Anesthesia Procedure Notes Filed: 03/19/2024 08:01 Note Text: ANESTHESIOLOGY PROCEDURE NOTE Airway General Information Procedure Start Time/Medication Administration: 03/19/2024 7:43 AM Procedure End Time: 03/19/2024 7:04 AM Patient location during procedure: OR Staffing ACID FILLER: Juliana Navarrete APRN.ACID FILLER Performed by: GUSTAVO Indications and Patient Condition Indications for airway [...] approach: 1 Airway not difficult SIGNATURE: Juliana Navarrete APRN.ACID FILLER PATIENT NAME: Billie Yeboah DATE: March 19, 2024 TIME: 8:01 AM CSN: [id number] History and physical note* Zaida Hernandez PA-C - 02/28/2024 2:26 PM EDT Images from the original note were not included. [facility] HISTORY AND PHYSICAL EXAMINATION SERVICE DATE: 02/28/2024 SERVICE TIME: 2:26 PM PRIMARY CARE PHYSICIAN: Gisella Chamorro MD Assessment 1. Preoperative examination Scheduled for surgery 03/19/2024 2. BRBPR (bright red blood per rectum) 3. Rectal prolapse See HPI, having surgery 4. Tachycardia HR averaging around 118-120 during our visit. Patient denies any cardiac symptoms. No palpitations or CP. EKG today shows sinus tachycardia with HR 113 bpm, also shows possible anterolateral infarct. Patient has never had a prior EKG at [facility] before, but has at either [facility] or [facility]. Faxing for records for comparison. Checking CBC, CMP, TSH, T4 labs. - Electrolytes and CBC are WNL. - TSH is low and T4 elevated, showing that her Levothyroxine dose of 112 mcg needs to be adjusted. Called and spoke with patient on phone 02/29/2024, reviewed her labs and that her levothyroxine dose is too high. Confirmed that her PCP, Dr. Gisella Chamorro is managing this. Will fax letter to Dr. Chamorro with results. Received old EKG done 2013 which showed poor wave progression and low QRS voltages in precordial leads, appears similar to EKG done today. Will review with anesthesia. 5. Hypothyroidism, unspecified type Compliant on daily levothyroxine. Updating thyroid labs today due to tachycardia - see above. 6. 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 On daily Etodolac and has Tramadol for [...] 35 kg/m^2 Non-male patient STOP-Bang Score: 1 [id number] Score: [id number] Score: 0 ANESTHESIA FINDINGS: Intubation History: No [...] thyroid labs. Letter faxed to Dr. Gisella Chamorro 02/29/2024 Anesthesia Consult for chart review and [...] ECG COMPLETE Faxed release to [facility] 02/28/2024 for Last EKG, need for comparison. [...] any diarrhea. Denies any issues with nausea, vomiting,acid reflux, abdominal pain. Has been diagnosed with a rectal prolapse. Patient has been recommended for above surgery. REVIEW OF SYSTEMS: PAIN ASSESSMENT: General: No weight loss, malaise or fevers. Neuro: No history of TIA's, stroke, COLLECTION SYSTEMS TECHNICIAN tumor, impaired sensorium, hemiplegia, paraplegia or quadraplegia. [...] or clotting disorder. Pt is not taking anti- coagulation or platelet medications. No history of hematological [...] ALLERGIES Allergen Reactions Ciprofloxacin Rash, Unknown Nitrofurantoin [place]* Other: See Comments, GI Upset Sulfamethoxazole-Tr* Other: [...] and voices comprehension and compliance. SIGNATURE: Zaida Hernandez PA-C PATIENT NAME: Billie Yeboah DATE: 02/28/2024 TIME: 2:26 PM PAGER/CONTACT #: [facility]09-04-2024 History and physical note* Zaida Hernandez PA-C - 02/28/2024 2:26 PM EDT Images from the original note were not included. [facility] HISTORY AND PHYSICAL EXAMINATION SERVICE DATE: 02/28/2024 SERVICE TIME: 2:26 PM PRIMARY CARE PHYSICIAN: Gisella Chamorro MD Assessment 1. Preoperative examination Scheduled for surgery 03/19/2024 2. BRBPR (bright red blood per rectum) 3. Rectal prolapse See HPI, having surgery 4. Tachycardia HR averaging around 118-120 during our visit. Patient denies any cardiac symptoms. No palpitations or CP. EKG today shows sinus tachycardia with HR 113 bpm, also shows possible anterolateral infarct. Patient has never had a prior EKG at [facility] before, but has at either [facility] or [facility]. Faxing for records for comparison. Checking CBC, CMP, TSH, T4 labs. - Electrolytes and CBC are WNL. - TSH is low and T4 elevated, showing that her Levothyroxine dose of 112 mcg needs to be adjusted. Called and spoke with patient on phone 02/29/2024, reviewed her labs and that her levothyroxine dose is too high. Confirmed that her PCP, Dr. Gisella Chamorro is managing this. Will fax letter to Dr. Chamorro with results. Received old EKG done 2013 which showed poor wave progression and low QRS voltages in precordial leads, appears similar to EKG done today. Will review with anesthesia. 5. Hypothyroidism, unspecified type Compliant on daily levothyroxine. Updating thyroid labs today due to tachycardia - see above. 6. 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 On daily Etodolac and has Tramadol for [...] 35 kg/m^2 Non-male patient STOP-Bang Score: 1 [id number] Score: [id number] Score: 0 ANESTHESIA FINDINGS: Intubation History: No [...] thyroid labs. Letter faxed to Dr. Gisella Chamorro 02/29/2024 Anesthesia Consult for chart review and [...] ECG COMPLETE Faxed release to [facility] 02/28/2024 for Last EKG, need for comparison. [...] any diarrhea. Denies any issues with nausea, vomiting,acid reflux, abdominal pain. Has been diagnosed with a rectal prolapse. Patient has been recommended for above surgery. REVIEW OF SYSTEMS: PAIN ASSESSMENT: General: No weight loss, malaise or fevers. Neuro: No history of TIA's, stroke, COLLECTION SYSTEMS TECHNICIAN tumor, impaired sensorium, hemiplegia, paraplegia or quadraplegia. [...] or clotting disorder. Pt is not taking anti- coagulation or platelet medications. No history of hematological [...] ALLERGIES Allergen Reactions Ciprofloxacin Rash, Unknown Nitrofurantoin [place]* Other: See Comments, GI Upset Sulfamethoxazole-Tr* Other: [...] and voices comprehension and compliance. SIGNATURE: Zaida Hernandez PA-C PATIENT NAME: Billie Yeboah DATE: 02/28/2024 TIME: 2:26 PM PAGER/CONTACT #: documented in this encounterFostoria City Hospital09-03-[facility]24 Instructions* Patient Instructions* Zaida Hernandez PA-C - 02/27/2024 12:07 PM EDT Images from the original note were not included. [facility] PATIENT PREOPERATIVE INSTRUCTIONS Testing that needs completed prior to surgery: - Lab work ordered today, recommend completing today at Outpatient Lab Funmilayo Odell MD has scheduled you for your procedure at this surgery center: [facility]: [phone] --[id number] [place] [address]. Please enter through the entrance closest to [...] Procedures: - YOU MUST HAVE A RESPONSIBLE ENGINEER INTERN TAKE YOU HOME. A EQUIPMENT MECHANIC SPECIALIST OR ACTIVATED SLUDGE ATTENDANT CANNOT BE MADE A RESPONSIBLE ENGINEER INTERN. - We recommend that a responsible person stays with you overnight to take care of you. - You cannot stay in a hotel alone after outpatient surgery. You will not be permitted to have yoursurgery, if you do not have someone to take care of you. Please be aware that emergency situations arise, which may delay or change your surgical time. If this happens, we will notify you as soon as possible and regret any inconvenience. If you already have an Advance Directive, please fax a copy to [phone] or email to for it to be added to your chart. If you do not have an Advance Directive, you can find the appropriate form and more information at [email or web address]. We recommend that youcomplete the Advance Directive form found on the website and bring it with you the day of your surgery. It can be witnessed and scanned into your chart that day. Zaida Hernandez PA-C documented in this encounterFostoria City Hospital08-30-2024 History of Present illness Narrative* Funmilayo Odell MD - 02/23/2024 2:40 PM EDT COLORECTAL SURGERY February 23, 2024 Billie Goodther [...] small hypervascular appearing internal hemorrhoids extending down belowthe dentate line, comprising an external component as [...] ALLERGIES Allergen Reactions Ciprofloxacin Rash, Unknown Nitrofurantoin [place]* Other: See Comments, GI Upset Sulfamethoxazole-Tr* Other: [...] exam reveals no gross blood or masses Emd Special Education Teacher present: Yes, Sarah Z Anoscopy: The patient [...] Odell MD Colorectal Surgery documented in this encounterFostoria City Hospital08-30-2024 NoteHNO ID: [id number] Author: FUNMILAYO ODELL MD Service: ? Author [...] ALLERGIES Allergen Reactions Ciprofloxacin Rash, Unknown Nitrofurantoin [place]* Other: See Comments, GI Upset Sulfamethoxazole-Tr* Other: [...] exam reveals no gross blood or masses Emd Special Education Teacher present: Yes, Sarah Z Anoscopy: The patient [...] treatment plan: moderate Funmilayo Odell MD Colorectal SurgeryFostoria City Hospital05-10-2024 History of Present illness Narrative* Funmilayo Odell MD - 11/03/2023 2:40 PM EDT COLORECTAL SURGERY November 03, 2023 Billie Yeboah 78 year old This consult was requested by Dr. Forbes and my final recommendations will be communicated to the requesting health care provider by way of the shared medical record for internal providers or letter via the [employer] for external providers. Chief Complaint: BRBPR, hemorrhoids History of Present Illness: Billie Britofather is a 78 year old female presents today for evaluation of BRBPR and hemorrhoids. Sigmoidoscopy 09/21/22 - Dr. Forbes Retroflexed views: There is small hypervascular appearing internal hemorrhoids extending down belowthe dentate line, comprising an external component as well. She reports she has had recurrence of rectal bleeding and it can be significant. She also reports that she has some thin brown/green fluid that is leaking out of her rectum without her knowledge. Sheis unsure if it is stool No past [...] ALLERGIES Allergen Reactions Ciprofloxacin Rash, Unknown Nitrofurantoin [place]* Other: See Comments, GI Upset Sulfamethoxazole-Tr* Other: [...] has a weak squeeze and discoordinated push Emd Special Education Teacher present: Yes, Sarah Z Anoscopy: The patient [...] old female with large anterior internal hemorrhoid/mucosal prolapsestatus post rubber band ligation x 2 of this area. This gave her some good relief a year ago and I am hopeful that will do so again. If things are not getting better then she may require a Delorme type mucosal resection of this anterior redundant mucosa. I also think that some of the leakage she ishaving is from her use of stool softeners and I asked her to stop this to see if this improves her symptoms. In addition I also referred her to pelvic floor physical therapy as she seems to have weaksphincter muscles on exam. Her last colonoscopy she [...] Odell MD Colorectal Surgery documented in this encounterFostoria City Hospital05-10-2024 NoteHNO ID: [id number] Author: FUNMILAYO ODELL MD Service: ? Author Type: Physician Type: Progress Notes Filed: 11/03/2023 14:59 Note Text: COLORECTAL SURGERY November 03, 2023 Billie Yeboah 78 year old This consult was requested by Dr. Forbes and my final recommendations will be communicated to the requesting health care provider by way of the shared medical record for internal providers or letter via the [employer] for external providers. Chief Complaint: BRBPR, hemorrhoids History of Present Illness: Billie Britofather is a 78 year old female presents [...] ALLERGIES Allergen Reactions Ciprofloxacin Rash, Unknown Nitrofurantoin [place]* Other: See Comments, GI Upset Sulfamethoxazole-Tr* Other: [...] has a weak squeeze and discoordinated push Emd Special Education Teacher present: Yes, Sarah Z Anoscopy: The patient [...] of treatment plan: nyla Odell MD Colorectal SurgeryFostoria City Hospital05-10-2024 Nurse Note* [facility] 11/03/2023 2:17 PM EDT What is the reason for your visit today? BRBPR, hemorrhoids Who is your referring physician? Dr. Forbes Are you having poor oral intake? NO Have you had unintentional weight loss of 15 lbs/7 Kg in the last 3-6 months? NO Bowels: regular, bleeding with and without BMs, discharge, brown/green in color Wound: Temperature: No Drains: No [facility]05-10-20[facility] Nurse Note* Shelly Bingham [facility] - 11/03/2023 2:17 PM EDT What is the reason for your visit today? BRBPR, hemorrhoids Who is your referring physician? Dr. Forbes Are you having poor oral intake? NO Have you had unintentional weight loss of 15 lbs/7 Kg in the last 3-6 months? NO Bowels: regular, bleeding with and without BMs, discharge, brown/green in color Wound: Temperature: No Drains: No documented in this encounterFostoria City Hospital04-17-2024 Miscellaneous Notes* Telephone Encounter - Jean Carlos Gunn - 10/11/2023 2:15 PM EDT Appointment with Dr. Odell is scheduled. * Telephone Encounter - Jean Carlos Gunn - 10/11/2023 10:04 AM EDT Referral Scanned in for Dr. Odell, called pt and LVM, awaiting call back to schedule. documented in this encounterFostoria City Hospital10-16-2023 Evaluation note* Encounter Date Diagnosis Assessment Notes Treatment Notes Treatment Clinical Notes Mar, IBS (irritable bowel syndrome) (ICD-10 - K58.9) [facility] 07-12-2023 Evaluation note* Encounter Date Diagnosis Assessment Notes Treatment Notes Treatment Clinical Notes Dec, Primary osteoarthrit is of first carpometacarpal joint of left hand (ICD-10 - M18.12) Progress as tolerated Discussed DIP fusions Dec, Trigger ring finger of left hand (ICD-10 - M65.342) Dec, Left hand pain (ICD- 10 - M79.642) [facility] Other 06-14-2023 Evaluation note* Encounter Date Diagnosis [...] Left hand pain (ICD- 10 - M79.642) [facility] Other 05-04-2023 History of Present illness Narrative* Funmilayo Odell MD - 10/27/2022 2:00 PM EDT COLORECTAL SURGERY October 27, 2022 Billie Yeboah 77 year old This consult was requested by Dr. Manjo Forbes and my final recommendations will be communicated to the requesting health care provider by way of the shared medical record for internal providers or letter via the [employer] for external providers. Chief Complaint: [...] exam reveals no gross blood or masses Emd Special Education Teacher present: Yes, Maribell Joiner Anoscopy: The patient [...] Odell MD Colorectal Surgery documented in this encounterFostoria City Hospital05-04-2023 Nurse Note* Maribell Joiner RN - [...] Temperature: No Drains: No documented in this encounterFostoria City Hospital03-30-2023 Evaluation note* Encounter Date Diagnosis Assessment Notes Treatment Notes Treatment Clinical Notes Aug, Hemorrhoids (ICD-10 - K64.9) [facility]* Encounter Date Diagnosis Assessment Notes Treatment Notes Treatment Clinical Notes Jul, IBS (irritable bowel syndrome) (ICD-10 - K58.9) [facility] Other 01-12-2023 NotePROCEDURE: XR HAND RT MIN [...] Electronically authenticated by: VIDYA CHAUDHARY Date: 2022-07-07 12:06[facility]10-10-2022 Evaluation note* Encounter Date Diagnosis Assessment Notes Treatment Notes Treatment Clinical Notes Mar, IBS (irritable bowel syndrome) (ICD-10 - K58.9) [facility] Other 08-10-2022 Evaluation note* Encounter Date Diagnosis Assessment Notes Treatment Notes Treatment Clinical Notes Jan, Primary osteoarthritis of right knee (ICD-10 - M17.11) Jan, History of total right knee replacement (ICD-10 - Z96.651) Jan, Age-related osteoporosis without current pathological fracture (ICD-10 - M81.0) Jan, Other alf (current) drug therapy (ICD-10 - Z79.899) Jan, Trochanteric bursitis of right hip (ICD-10 - M70.61) Jan, Other [facility] TKA at [facility] on 12/20/2021 Overall I think she is doing very well. The stitch that popped up in the proximal aspect the incision was removed. Patient tolerated this well. Patient may continue activities as tolerated. Recommended continuing physical therapy not only for her knee but also for greater trochanteric bursitis. Continue taking wvay-ygi-vprlemn anti-inflammatories as needed for assistance with swelling and pain associated with the operative extremity. I have also prescribed her some iron and vitamin C in the event that she did have some low postoperative hemoglobin. Follow-up in 6 weeks for repeat examination and long standing x-rays. 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 Zipline was [...] 3 view x-rays of the right knee. [facility] Other 06-17-2022 Evaluation note* Encounter Date Diagnosis [...] patient could proceed with surgery safely. The wellness spa manager was vital for surgery timing and [...] plans. 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 Joints Meeting Checklist - Pharmacy: [facility] to bed - Approach/Technique: CLEMENCIA - [...] for 4 to 5 years per her packaging clerk, Dr. Maldonado. All questions were answered after [...] elected to proceed with the above surgery. [employer] Other 05-18-2022 Evaluation note* Encounter Date Diagnosis Assessment Notes Treatment Notes Treatment Clinical Notes October, Age-related osteoporosis without current pathological fracture (ICD-10 - M81.0) October, Primary osteoarthritis of right knee (ICD-10 - M17.11) October, Other alf (current) drug therapy (ICD-10 - Z79.899) October, [...] or absent clearances could delay their surgery. [employer] Other 02-18-2022 Evaluation note* Encounter Date Diagnosis [...] injection well. 6. Follow up 3 months [employer] Other 10-26-2021 Evaluation note* Encounter Date Diagnosis Assessment Notes Treatment Notes Treatment Clinical Notes Mar, IBS (irritable bowel syndrome) (ICD-10 - K58.9) Colonoscopy Follow up in 1 year Mar, Special screening for malignant neoplasms, colon (ICD-10 - Z12.11) [employer] Other Evaluation noteNo assessment information available [facility] Work Phone: Evaluation note* Diagnosis Hemorrhoids, unspecified hemorrhoid type- Primary documented in this encounter [facility] note* Diagnosis BRBPR (bright red blood per rectum)- Primary Hemorrhage of rectum and anus Hemorrhoids, unspecified hemorrhoid type Pelvic floor dysfunction Pelvic muscle wasting documented in this encounter [facility] note* Diagnosis Hemorrhoids, unspecified hemorrhoid type- Primary documented in this encounter [facility] note* Diagnosis Preoperative examination- Primary [...] anus Rectal prolapse [facility] Author Manoj Forbes [facility] September 21, 2022 10:51am Note Date/Time September 21, 2022 10: 51am [facility] [address] [place] [address] Gastroenterology H&P Signed Patient: Billie Yeboah MR#: [id number] : 1945 Acct:[id number] Age/Sex: 77 / F Adm Date: 3 Loc: Room: Type: [facility] Attending Dr: Manoj Forbes MD [...] signed by Manoj Forbes MD> 09/21/22 1051 [facility] Work Phone: Hisuwwk general Narrative - Reported* Type Description Date Surgical History THYROID Surgical History LEFT KNEE REPLAEMENT Surgical History HYSTERECTOMY Surgical History BILATERAL FOOT SURGERY Surgical History HIP REPLACEMENT RIGHT Hospitalization History Stomach pains 1 night [employer] Other History general Narrative - Reported* Type Description Date Medical History Arthritis Medical History IBS Medical History thyroid disease Medical History high cholesterol Surgical History THYROID Surgical History LEFT KNEE REPLAEMENT Surgical History HYSTERECTOMY Surgical History BILATERAL FOOT SURGERY Surgical History HIP REPLACEMENT RIGHT Hospitalization History Stomach pains 1 night [employer] Other Hospital Discharge instructions Additional Instructions DISCHARGE [...] NOT operate machinery such as power tools, [employer] mowers, [employer] blowers, sewing machines, etc. for 24 hours. [...] problems. -Follow up with PCP. -Office number [phone].[facility] Work Phone: Reason for referral (narrative)* Reason *FU 09/30 Consult for hemorrhoids. Referral faxed to Dr. Odell Diagnosis 1 Hemorrhoids (K64.9) Referral Organization [facility] Gastroenterolo gy Referring Provider First Name Manoj Referring Provider Last Name Leidy Referring Provider Specialty Gastroenter ology Referred Organization [facility] Referred Provider FUNMILAYO ODELL Referred Address [address] [place], [place],[address] Referred Provider Specialty Colorectal S urgery Referral Priority Routine General Notes Juliana De Guzman 0 09/23/2022 10:05:39 AM > Referral faxed by office. [employer] Other Reason for referral (narrative)* Outpatient Procedure (Routine) - New Request Specialty Diagnoses / Procedures Referred By Contac t Referred To Contact [facility] Diagnoses Preoperative examination Tachycardia Procedures ECG COMPLETE ECG ROUTINE ECG W/LEAST 12 LDS W/I&R Zaida Hernandez PA-C [address] [place] [address] [facility] [address] [place] [address] Referral ID Status Reason Start Date Expiration Date Visits Requested Visits Authorized [id number] New Request Auto-Generat ed Referral 02/28/2024 02/27/2025 1 1 [facility] Chief Complaint and Reason for Visit Chief Complaint Knee Pain Knee Pain Knee Pain Z96.651 Right TKA/post-op Chief Complaint Knee Pain Knee Pain Z96.651 Right TKA/post-op Chief Complaint Bright Red Per Rectu m, Anemia Chief Complaint R22.31 Chief Complaint K58.1 Chief Complaint Admit Date Crohn's May 30, 2024 2 :34pm rectal bleeding June 21, 2024 7:47am rectal bleeding June 21, 2024 9:25am E55.9 July 22, 2024 8 :28am Reason for Visit Admit Date Acute Crohn's disease May 30, 2024 2:34pm Chief Complaint Admit Date Crohn's May 30, 2024 2 :34pm rectal bleeding June 21, 2024 7:47am rectal bleeding June 21, 2024 9:25am E55.9 July 22, 2024 8 :28am 8 week follow up August 21, 2024 1:39pm Reason for Visit Admit Date Acute Crohn's disease May 30, 2024 2:34pm Acute Crohn's disease August 21 1:39pm Family History Relationship Condition Age at Onset [...] neoplasm of colon Unknown mother Hypertension Unknown Relationship Condition Age at Onset Recorded Date/T chalo father Heart disease Unknown mother Alzheimer's dementia Unknown Hypertension Unknown family member Malignant neoplasm of colon Unknown maternal grandfather Malignant neoplasm of colon Unkno wn Advance Directives Advance Directive Response Recorded Date/ Time Advance Directives Yes October 02 10:10am Advance Directive Response Recorded Date/ Time Advance Directives Yes October 02 9:10am Summary Purpose Reason for Referral Specialty Diagnoses / Procedures Referred By Contac t Referred To Contact [facility] Diagnoses Pelvic floor dysfunction Procedures CONSULT TO PHYSICAL THERAPY PHYSICAL THERAPY EVALUATION HIGH COMPLEX [address] [place] [address] [address] [place] [address] [facility] [address] [address] Referral ID Status Reason Start Date Expiration Date Visits Requested Visits Authorized [id number] Pending Review PCP Requested Referral Auto-Generate d [...] Status: Inactive Member Role Status Dates Gisella Chamorro MD Primary Care Provider Active Sydney Oswald II, MD Attending Provider Active Team Status: Active Member Role Status Dates Gisella Chamorro MD Primary Care Provider Active Team Status: Inactive Member Role Status Dates Gisella Chamorro MD Primary Care Provider Active Manoj Forbes MD Attending Provider Active 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 Hoist 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 Relationship Specialty Start Date End Date Daryl Austin [address] [place] [address] PCP - General 10/11/00 Team Status: Inactive Member Role Status Dates Gisella Chamorro MD Primary Care Provider Active Ivette Taylor MD Attending Provider Active 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 Hoist 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 Relationship Specialty Start Date End Date Daryl Austin [address] [place] [address] PCP - General 10/11/00 Air Hoist Operator Relationship Specialty Start Date End Date Daryl Austin [address] [place] [address] PCP - General 10/11/00 Air Hoist Operator Relationship Specialty Start Date End Date Daryl Austin [address] [place] [place] [address] PCP - General 10/11/00 Air Hoist Operator Relationship Specialty Start Date End Date Daryl Austin [address] [place] [address] PCP - General 10/11/00 02/28/24 Gisella Chamorro MD [address] [id number] PCP - General Family Medicine 02/29/24 Team Status: Inactive Member Role Status Chaitanya Chamorro MD Primary Care Provider Active Start: April 01, 2024 End: April 01, 2024 Manoj Forbes MD Attending Provider Active S tart: April 01, 2024 End: April 01, 2024 Team Status: Inactive Member Role Status Chaitanya Chamorro MD Primary Care Provider Active Start: May 30, 2024 End: May 30, 2024 Manoj Forbes MD Attending Provider Active S tart: May 30, 2024 End: May 30, 2024 Team Status: Inactive Member Role Status Chaitanya Chamorro MD Primary Care Provider Active Start: June 21, 2024 End: June 21, 2024 Manoj Forbes MD Attending Provider Active S tart: June 21, 2024 End: June 21, 2024 Team Status: Active Member Role Status Chaitanya Chamorro MD Primary Care Provider Active Start: June 21, 2024 Manoj Forbes MD Attending Provider, Other Provider Active Start: June 21, 2024 Team Status: Active Member Role Status Chaitanya Chamorro MD Primary Care Provider Active Start: June 25, 2024 Josep Carey DO Attending Provider Active Sta rt: June 25, 2024 Team Status: Inactive Member Role Status Chaitanya Chamorro MD Primary Care Provider Active Start: July 22, 2024 End: July 22, 2024 JUDY Cantrell Attending Provider Active Start: July 22, 2024 End: July 22, 2024 Team Status: Inactive Member Role Status Dates Gisella Chamorro MD Primary Care Provider Active Start: August 21, 2024 End: August 21, 2024 Manoj Forbes MD Attending Provider Active S tart: August 21, 2024 End: August 21, 2024 INFORMATION SOURCE (unrecogn ized section and content) DATE CREATED AUTHOR 08/30/2022 [facility] DATE CREATED AUTHOR AUTHOR'S ORGANIZ ATION 03/21/2024 [facility] DATE CREATED AUTHOR AUTHOR'S ORGANIZ ATION 06/27/2024 [facility] DATE CREATED AUTHOR AUTHOR'S ORGANIZ ATION 08/05/2024 [facility] Source Comments (unrecognize d section and content) In the event this informatio n is protected by the Federal Confidentiality of Alcohol and Drug Abuse Patient Records regulations: The Federal rules restrict any use of the information to criminally investigate or prosecute any alcohol or drug abuse patient.[facility] the event this information is protected by the Federal Confidentiality of Alcohol and Drug Abuse Patient Records regulations: The Federal rules restrict any use of the information to criminally investigate or prosecute any alcohol or drug abuse patient.[facility] the event this information is protected by the Federal Confidentiality of Alcohol and Drug Abuse Patient Records regulations: The Federal rules restrict any use of the information to criminally investigate or prosecute any alcohol or drug abuse patient.[facility] the event this information is protected by the Federal Confidentiality of Alcohol and Drug Abuse Patient Records regulations: The Federal rules restrict any use of the information to criminally investigate or prosecute any alcohol or drug abuse patient.[facility] the event this information is protected by the Federal Confidentiality of Alcohol and Drug Abuse Patient Records regulations: The Federal rules restrict any use of the information to criminally investigate or prosecute any alcohol or drug abuse patient.[facility] Goals (unrecognized section and content) Goals [...] BE BASED ON THE PRIMARY CLINICAL RECORDS. [facility] [employer] [facility]. provides no warranty or guarantee of the accuracy or completeness of information in this document.
== END 2024-09-04 10:13 | disposition home or self-care (01) ==
LOC: US 10:13
PROVIDERS: PCP Family Medicine; Visit Provider Family Medicine
DX: R60.0 Localized edema (principal); M14.672 Charcot's joint, left ankle and foot; M77.32 Calcaneal spur, left foot
CPT/HCPCS: 73630; 93970

== ENCOUNTER 2025-01-01 09:44 | Outpatient (RCR) | payer MEDICARE, SELFPAY | END 2025-02-13 12:38 | disposition home or self-care (01) | LOC: PT 09:44 | PROVIDERS: PCP Family Medicine | DX: M62.89 Other specified disorders of muscle (principal); N31.9 Neuromuscular dysfunction of bladder, unspecified | CPT/HCPCS: 97110; 97112; 97161 ==

== ENCOUNTER 2025-01-29 09:03 | Outpatient (OUT) | payer MEDICARE, SELFPAY ==
--- OUTSIDE RECORDS SUMMARY | 2011-04-20 20:00 | XMS_ITS | Continuity of Care Document ---
Author Organization [facility] Address [address] [place] [address] Phone Care Team Providers Care B[employer] And Furnace Manager Name Role Phone Lavinia VIDES, [place] Unavailable Unavailable Procedures Procedure Date Admin influenza virus vac FLU VACC PRSV FREE INC ANTIG Advance Directives Directive Yes / No Effective Date File Name No Information Encounters Encounter Description Practice Location Reason(s) For Visit Diagnoses Date Provider Providers Copied on Encounter [facility], [address], [place], [id number], [place] tel:[phone] [facility] No Information Lavinia FERRERA [place]. [address], [place], [id number], [place]. tel:[phone] Family History Family Member Type Diagnosis Age At Onset No Information Payers Payer name Insurance type Covered democrat ID Authoriza tion(s) Medicare PPS MB [id number] Social History Type Description Quantity Date Captured [...]
--- OUTSIDE RECORDS SUMMARY | 2024-10-30 05:45 | XMS_ITS ---
Author Organization The [facility] in [place] Address [address] [place] [address] Care Team Providers Care Pastor Name Role Phone German Vishnu Primary Care [...] 1 Hearing loss (H91.90 ) Referral Organization [facility] Medicine Referring Provider First Name Vishnu Referring Provider Last Name German Referring Provider Speciality Family [facility] joanna Referred Provider Silva Britt Referred Provider [...] W/U Status Risk Notes Problem Hearing loss (09291256) Hearing loss (H91.90) Active confirmed Problem Hearing loss (55663361) 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) Active confirmed Vital Signs Blood pressure systolic 124 mm Hg 10/31/19 25 Blood pressure diastolic 80 mm Hg 025 Height 66 in 10/30/2024 Weight 147.8 lbs 10/30/2024 BMI 23.85 kg/m2 10/30/2024 Encounters Encounter Location Date Provider Diagnosis [facility] [address] [place] [address] 10/30/2024 Vishnu Hoy Hearing loss H91.90 and [...] Details 10/30/2024 10/30/2024, minimal bone conduction, persistent MICHAEL, Silva Timmis Progress Notes * Billie YEBOAH ADOB:[birth year] (79 yo F)Acc No.[id number]:10/30/2024 Progress Note Patient: Billie TURNER Provider: Ruslan Porter ([facility])MD :1945 A ge:79 Y S ex:Female Date:10/30/2024 Address:[address] [place] [address] [address] [facility] Check In:09:40 AM ESTCheck O ut:10:13 AM [...] (Check Out) true * Provider: Ruslan Porter ([facility])MD Date: 0 10/30/2024 Generated for Curtisi ng/Fabernadetteg/eTransmitting on: 0 01/29/2025 09:05 AM EDT History and Physical Notes * [...]
--- OUTSIDE RECORDS SUMMARY | 2024-12-12 10:15 | XMS_ITS ---
Author Organization [facility] in [place] Address [address] [place] [address] Care Team Providers Care Magazine Designer Name Role Phone German Vishnu Primary Care Provider [phone] REASON FOR VISIT Refill Medications Medication SIG (Take, Route, Frequency, Duration) Notes Start Date End Date Status Levothyroxine Sodium 112 MCG 1 tablet in the morning on an empty stomach Orally Once a day for 90 days Active Liothyronine Sodium 5 MCG 2 tablet on an empty stomach Orally Once a day for 90 days 06/11/2024 Active Encounters Encounter Location Date Provider Diagnosis [address] [address] 12/12/2024 Vishnu German Plan Of Treatment Medication Medication Name Sig Start Date Stop Date Notes Levothyroxine Sodium 112 MCG 1 tablet in the morning on an empty stomach Orally Once a day for 90 days Liothyronine Sodium 5 MCG 2 tablet on an empty stomach Orally Once a day for 90 days 06/11/2024 Progress Notes * DARYLKristy IZAGUIRREh ADOB:[birth year] (79 yo F)Acc No.[id number]:12/12/2024 Patient: Riki WEBER Billie A :1945 A ge:79 Y S ex:Female Address:[address] [facility] [address] [place], [address] * Refills Refill Levothyroxine Sodium Tablet, 112 MCG, Orally, 90 Tablet, 1 tablet in the morning on an empty stomach, Once a day, 90 days, Refills=3 Refill Liothyronine Sodium Tablet, 5 MCG, Orally, 180 Tablet, 2 tablet on an empty stomach, Once a day, 90 days, Refills=3 * true * Date: Generated for Na pineda/Elton/Nena on: 0 01/29/2025 09:05 AM EDT
--- OUTSIDE RECORDS SUMMARY | 2024-12-24 10:07 | XMS_ITS ---
Author Organization [facility] in [place] Address [address] [place] [address] Care Team Providers Care Broadcast Supervisor Name Role Phone German Vishnu Primary Care Provider REASON FOR VISIT refill Medications Medication SIG (Take, Route, Frequency, Duration) Notes Start Date End Date Status Liothyronine Sodium 5 MCG 2 tablet on an empty stomach Orally Once a day for 90 days 06/11/2024 Active Encounters Encounter Location Date Provider Diagnosis [facility] [address] [place] [address] 12/24/2024 Vishnu Porter Plan Of Treatment Medication Medication Name Sig Start Date Stop Date Notes Liothyronine Sodium 5 MCG 2 tablet on an empty stomach Orally Once a day for 90 days 06/11/2024 Progress Notes * Billie YEBOAH ADOB:[birth year] (79 yo F)Acc No.[id number]:12/24/2024 Patient: Billie TURNER :1945 A ge:79 Y S ex:Female Address:[address] [place] [address], [address] * Refills Refill Liothyronine Sodium Tablet, 5 MCG, Orally, 180 Tablet, 2 tablet on an empty stomach, Once a day, 90 days, Refills=3 * true * Date: Generated for Printi ng/Faxing/eTransmitting on: 0 01/29/2025 09:05 AM EDT
--- OUTSIDE RECORDS SUMMARY | 2025-01-14 13:40 | XMS_ITS | Encounter Summary ---
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 Procedures MR brain w and wo contrast IACs Silva Britt MD [address] [facility] [address] [place] [address] Phone: tel: fax: [facility] [address] [place] [address] Phone: tel: fax: Referral ID Status Reason Start Date Expiration Date V isits Requested Visits Authorized [id number] Authorized 01/15/2025 07/14/2025 1 1 Reason for Visit * Reason Comments Hearing Loss Audio 01/08/25 Encounter Details Date Type Department Care Team (Late st Contact Info) Description 01/14/2025 1:40 PM EDT Office Visit [facility] [address] [place] [facility] [address] [place] [address] Silva Britt MD [address] [place] [facility] [address] [place], [place] [id number] 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) Social History Tobacco Use Types Packs/Day Years Used Date Smoking Tobacco: Never Smokeless Tobacco: Never Tobacco Cessation:Counseling Given: Not Answered Alcohol Use Standard Drinks/Week Comments Not Currently 0 (1 standard drink = 0.6 oz pur e alcohol) Occ Comments Unknown Sex and Gender Information Value Date Recorded Sex Assigned at Not on file Legal Sex Female 8:32 PM EDT Gender Identity Not on file Sexual Orientation Not on file documented as of this encounter Last Filed Vital Signs Vital Sign Reading Time Taken Comments Blood Pressure 124/98 01/14/2025 1:38 PM EDT Pulse 98 01/14/2025 1:38 PM EDT Temperature - - Respiratory Rate - - Oxygen Saturation - - Inhaled Oxygen Concentration - - Weight 66.7 kg (147 lb) 01/14/2025 1:38 PM EDT Height 167.6 cm (5' 6 ) 01/14/2025 1:38 PM EDT Body Mass Index 23.73 01/14/2025 1:38 PM EDT documented in this encounter Progress Notes * Silva Britt MD - 01/14/2025 1:40 PM EDT Subjective Patient ID: Billie Yeboah is a 79 y.o. female who presents for Hearing Loss (Audio 01/08/25) Pt repost she had influenza A 6 mo ago and developed sudden onset of left HL. Told there was an effusion. Tx with steroids and abx. Audio shows mild to moderate RT and moderate to severe LT SNHL. There is only 44% speech disc on the LT. Review of Systems All other systems reviewed and are negative. No family history on file. Active Ambulatory Problems Diagnosis Date Noted BRBPR (bright red blood per rectum) 02/28/2024 Hyperlipidemia 02/28/2024 Tachycardia 02/28/2024 Rectal prolapse 02/28/2024 Osteoarthritis of both hands 02/28/2024 Neuropathy of both feet 02/28/2024 Hypothyroidism 02/28/2024 Irritable bowel syndrome with diarrhea 02/28/2024 Resolved Ambulatory Problems Diagnosis Date Noted No Resolved Ambulatory Problems Past Medical History: Diagnosis Date HL (hearing loss) Past Surgical History: Procedure Laterality Date HYSTERECTOMY THYROIDECTOMY, PARTIAL TOTAL HIP ARTHROPLASTY Right TOTAL KNEE ARTHROPLASTY Bilateral Allergies Allergen Reactions Nitrofurantoin Other Reaction(s): GI Upset, Other: See Comments Ciprofloxacin Rash Other Reaction(s): Unknown Sulfamethoxazole-Trimethoprim Rash Other Reaction(s): Other: See Comments Current Outpatient Medications on File Prior to Visit Medication Sig Dispense Refill amitriptyline (Elavil) 50 MG tablet dicyclomine (Bentyl) 20 MG tablet levothyroxine (Synthroid, Levoxyl) 88 MCG tablet TAKE 1 TABLET BY MOUTH ONCE DAILY FOR 30 DAYS liothyronine (Cytomel) 5 MCG tablet 1 (one) time each day at the same time mesalamine (Lialda) 1.2 g EC tablet rosuvastatin (Crestor) 5 MG tablet No current facility-administered medications on file prior to visit. Objective Last Recorded Vitals Vitals: 01/14/25 1338 BP: (!) 124/98 Pulse: 98 ENT Physical Exam Constitutional Appearance: patient appears well-developed, well-nourished and well-groomed, Head and Face Appearance: head appears normal and face appears atraumatic; Ear Ear Canals: right ear canal normal; left ear canal normal; Tympanic Membranes: right tympanic membrane normal; left tympanic membrane normal; Nose External Nose: nares patent bilaterally; external nose normal; Internal Nose: septum normal; Oral Cavity/Oropharynx Tongue: normal; Oral mucosa: normal; Hard palate: normal; Soft palate: normal; Tonsils: normal; Neck Neck: neck normal; neck palpation normal; Thyroid: thyroid normal; Respiratory Inspection: breathing unlabored; normal breathing rate; Auscultation: breath sounds are clear; Cardiovascular Inspection: extremities are warm and well perfused; no peripheral edema present; Auscultation: regular rate and rhythm; Assessment/Plan Diagnoses and all orders for this visit: 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 After 6 months the hearing loss will be fixed. We need to check an MRI to ensure the HL is not due to an AN. Recommend a CROS CAMERON. documented in this encounter Miscellaneous Notes * Addendum Note - Misty Radford MA - 01/14/2025 1:40 PM EDTAddended by: MISTY RADFORD on: 01/15/2025 10:11 AM Modules accepted: Orders documented in this encounter Plan of Treatment Upcoming Encounters Date Type Department Care Team (Late st Contact Info) Description 02/04/2025 9:00 AM EDT Office Visit [facility] [address] [place] [facility] [address] [place] [address] Silva Britt MD [address] [facility] [place] [facility] [address] [place] [address] 02/12/2025 1:15 PM EDT Office Visit [facility] [address] [place] [id number] Jesus Brown DO [address] [place] [address] Scheduled Orders Name Type Priority Associated Diagnoses Orde r Schedule MR brain w and wo contrast IACs Imaging Routine 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
--- OUTSIDE RECORDS SUMMARY | 2025-01-29 09:06 | XMS_ITS | Patient Health Record ---
Author Organization [facility] in [place] Address [address] [place] [address] Care Team Providers Care Ota Name Role Phone BertoVishnu lee Primary Care Provider [phone] Allergies Allergen (clinical drug ingredient) Drug/Non Drug Allergy documented on EMR Reaction Allergy Type Onset Date Status sulfamethoxazole / trimethoprim Bactrim Unknown Drug Allergy Active nitrofurantoin, macrocrystals / nitrofurantoin, monohydrate Macrobid Unknown Drug Allergy Active ciprofloxacin Ciprofloxacin Unknown Drug Allergy Active Results Component Value Reference Range Notes CBC AUTO DIFF Reviewed date:06/10/2024 02:12:02 PM Interpretation: Performing Lab: Notes/Report: [facility] , White Blood Count 6.1 4.0-11.0 10 3/uL Red Blood Count 4.59 4.20-5.40 10 6/uL Hemoglobin 13.2 12.0-16.0 g/dL Hematocrit 40.8 36.0-48.0 % Mean Corpuscular Volume 88.9 81.0-99.0 fL Mean Corpuscular Hemoglobin 28.8 26.7-34.0 pg Mean Corpuscular HGB Conc 32.4 29.9-35.2 g/dL Red Cell Distribution Width 12.2 11.0-15.0 % Platelet Count 347 150-450 10 3/uL Mean Platelet Volume 9.4 9.5-13.5 fL Neutrophils Percent Auto 66.1 43.0-75.0 % Lymphocytes Percent Auto 16.6 20.5-60.0 % Monocytes Percent Auto 12.1 1.7-12.0 % Eosinophils Percent Auto 4.2 0.9-7.0 % Basophils Percent Auto 0.8 0.2-2.0 % Immature Granulocytes Pct Auto 0.2 0.0-0.5 % Neutrophils Absolute Auto 4.1 1.4-6.5 10 3/uL Lymphocytes Absolute Auto 1.0 1.2-3.8 10 3/uL Monocytes Absolute Auto 0.7 0.3-0.8 10 3/uL Eosinophils Absolute Auto 0.3 0.0-0.7 10 3/uL Basophils Absolute Auto 0.1 0.0-0.1 10 3/uL Immature Granulocytes Abs Auto 0.01 0.00-0.03 10 3/uL Performing Lab: see note ML - [facility] LB IRON Reviewed date:06/10/2024 02:12:02 PM Interpretation: Performing Lab: Notes/Report: [facility] , Iron 36.0 50.0-170.0 ug/dL Performing Lab: see note ML - [facility] TSH Reviewed date:2024 07:04:23 PM Interpretation: Performing Lab: Notes/Report: [facility] , Thyroid Stimulating Hormone 0.404 0.358-3.740 uIU/mL Performing Lab: see note ML - [facility] LB T4 Reviewed date:2024 07:04:23 PM Interpretation: Performing Lab: Notes/Report: [facility] , T4 Thyroxine 9.00 4.80-13.90 ug/dL Performing Lab: see note ML - [facility] FREE T3 Reviewed date:2024 07:04:23 PM Interpretation: Performing Lab: Notes/Report: [facility] , Free T3 4.06 2.18-3.98 pg/mL Performing Lab: see note ML - [facility] LB TSH Reviewed date:06/10/2024 02:12:02 PM Interpretation: Performing Lab: Notes/Report: [facility] , Thyroid Stimulating Hormone 1.443 0.358-3.740 uIU/mL Performing Lab: see note ML - [facility] LB T4 Reviewed date:06/10/2024 02:12:02 PM Interpretation: Performing Lab: Notes/Report: [facility] , T4 Thyroxine 8.80 4.80-13.90 ug/dL Performing Lab: see note ML - [facility] LB PROF 14(COMP METB) Reviewed date:06/10/2024 02:12:02 PM Interpretation: Performing Lab: Notes/Report: [facility] , Sodium 138 136-145 mmol/L Potassium 3.9 3.5-5.1 mmol/L Chloride 99 98-107 mmol/L Carbon Dioxide 31.8 21.0-32.0 mmol/L Anion Gap 11.1 Glucose 111 74-106 mg/dL Blood Urea Nitrogen 13.0 7.0-18.0 mg/dL Creatinine 1.05 0.55-1.02 mg/dL Estimated GFR ( Danya >60 >=60 mL/min/1.73m 2 Estimated GFR (Non- Miguelina 51 >=60 mL/min/1.73m 2 BUN Creatinine Ratio 12.4 Calcium 9.0 8.5-10.1 mg/dL Bilirubin Total 0.4 0.2-1.0 mg/dL Aspartate Amino Transferase 13 15-37 U/L Alanine Aminotransferase 13 14-59 U/L Alkaline Phosphatase 84 46-116 U/L Total Protein 7.6 6.4-8.2 g/dL Albumin Level 2.9 3.4-5.0 g/dL Globulin 4.7 Albumin Globulin Ratio 0.6 Performing Lab: see note ML - [facility] LB LIPID PROFILE Reviewed date:06/10/2024 02:12:02 PM Interpretation: Performing Lab: Notes/Report: [facility] , Triglycerides 95 <=150 mg/dL Cholesterol 173 <=200 mg/dL HDL Cholesterol 64 40-60 mg/dL > or =60 mg/dl - LOW CARDIOVASCULAR RISK <40 mg/dl - HIGH CARDIOVASCULAR RISK LDL Cholesterol Calculated 90.0 130-159 mg/dl BORDERLINE HIGH >190 mg/dl VERY HIGH <100 mg/dl OPTIMAL 160-189 mg/dl HIGH 100-129 mg/dl NEAR OR ABOVE OPTIMAL VLDL CHOLESTEROL 19.0 Chol HDL Ratio 2.7 4.4 - 7.1 AVERAGE RISK 7.1 - 11.0 MODERATE RISK 3.3 - 4.4 LOW RISK >11.0 HIGH RISK Performing Lab: see note - [facility] GLYCOHEMOGLOBIN A1C Reviewed date:06/10/2024 02:12:02 PM Interpretation: Performing Lab: Notes/Report: [facility] , Glycohemoglobin A1C 5.4 4.5-6.2 % ACTION SUGGESTED > 7.0 ADA RECOMMENDED LIMIT 4.0 - 6.0 ADA THERAPEUTIC TARGET < 7.0 Estimated Average Glucose 108 Performing Lab: see note ML - [facility] FREE T3 Reviewed date:06/10/2024 02:12:02 PM Interpretation: Performing Lab: Notes/Report: [facility] , Free T3 1.62 2.18-3.98 pg/mL Performing Lab: see note ML - [facility] LB XR wrist RT 2V Reviewed date:04/13/2024 11:12:40 AM Interpretation: Performing Lab: Notes/Report: Source Facility: [place] [address] XRay Report Signed Patient: YORDY YEBOAH MR#: [id number] : 1945 Acct:[id number] Age/Sex: 78 / F ADM Date: 04/13/24 Loc: ER Attending Dr: Ordering Physician: Pita Putnam Date of Service: 04/13/24 Procedure(s): XR wrist RT 2V Accession Number(s): [id number] cc: Gisella Porter M.D.; Pita Putnam [place] [id number] Patient Name: YORDY YEBOAH MRN: [id number] date: 1945 Sex: F Assigned Patient Location: ER Current Patient Location: ED.MAIN Accession/Order Number: [id number] Exam Date: 04/13/2024 09:54 Report Date: 04/13/2024 10:43 At the request of: PITA PUTNAM Procedure: XR wrist RT 2V HISTORY: The patient woke up with right wrist pain. No known injury. XR wrist RT 2V: 04/13/2024 9:54 AM EDT COMPARISON: Radiographs right hand 07/06/2022. FINDINGS: There are severe degenerative changes again seen of the first carpometacarpal joint, the triscaphe joint, the first MCP joint, and the fourth MCP joint at the edge of the ojdqj-cc-jqem. There is severe narrowing of the space between the lunate and distal ulna again seen. There are severe degenerative changes again seen of the distal radioulnar joint with mild erosive change of the adjacent distal radius. There again appear to be at least moderate to severe degenerative changes of the radiocarpal joint. No acute fracture or dislocation is seen. There is soft tissue swelling of the wrist. XR/XR wrist RT 2V IMPRESSION: 1. No acute fracture or dislocation is seen. 2. There is a similar appearance of osteoarthritis involving multiple joints when compared to the prior radiographs of 07/06/2022 as described above. 3. Nonspecific soft tissue swelling of the wrist. Electronically authenticated by: GISELLA CORNELIUS Date: 04/13/2024 10:43 Dictated By: Gisella Cornelius M.D. Signed By: 04/13/241045 DD/ 42 TD/TT: Hand Fretted Instrument Maker: [place] [address] XRay Report Signed Patient: YORDY YEBOAH MR#: [id number] : 1945 Acct:[id number] Age/Sex: 78 / F ADM Date: 04/13/24 Loc: ER Attending Dr: Ordering Physician: Pita Putnam Date of Service: 04/13/24 Procedure(s): XR wri st RT 2V Accession Number(s): [id number] cc: Gisella Porter M.D. ; Pita Putnam [place] [id number] Patient Name: YORDY YEBOAH MRN: [id number] date: 1945 Sex: F Assigned Patient Location: ER Current Patient Loca tion: ED.MAIN Accession/Order Numb er: [id number] Exam Date: 09:54 Report Date: 04/13/2024 10:43 At the request of: PITA PUTNAM Procedure: XR wrist RT 2V HISTORY: The patient woke up with right wrist pain. No known injury. XR wrist RT 2V: 04/13/2024 9:54 AM EDT COMPARISON: Radiogra phs right hand 07/06/2022. FINDINGS: There are severe degenerative changes again seen of the first carpometacarpal join t, the triscaphe joint, the first MCP joint, and the fourth MCP joint at the edg e of the xcsbs-vp-dwxs. There is severe narrowing of the space between the mauricio macario and distal ulna again seen. There are severe degenerative changes again seen of the distal radioulnar joint with mild erosive change of th e adjacent distal radius. There again appear to be at least moderate to severe degenerative changes of the radiocarpal joint. No acute fracture or dislocat ion is seen. There is soft tissue swelling of the wrist. X R/XR wrist RT 2V IMPRESSION: 1. No acute fracture or dislocation is seen. 2. There is a simila r appearance of osteoarthritis involving multiple joints when compared to the prior radiographs of 07/06/2022 as described above. 3. Nonspecific soft tissue swelling of the wrist. Electronically authenticated by: GISELLA CORNELIUS Date: 04/13/2024 10:43 Dictated By: Gisella Cornelius M.D. Signed By: 04/13/24 1046 DD/ 1043 TD/TT: Hand Fretted Instrument Maker: ECG 12 lead Reviewed date:04/14/2024 04:06:29 PM Interpretation: Performing Lab: Notes/Report: Source Facility: [place] [address] Electrocardiograph Report Signed Patient: YORDY YEBOAH MR#: [id number] : 1945 Acct:[id number] Age/Sex: 78 / F ADM Date: 04/13/24 Loc: ER Attending Dr: Ordering Physician: Pita Putnam Date of Service: 04/13/24 Procedure(s): ECG 12 lead Accession Number(s): [id number] cc: [facility] Test Date: 2024-04-13 Pat Name: YORDY YEBOAH Department: Room: - Gender: Female Customer Servicer: : 1945 Requested By: GISELLA PORTER Order Number: [id number] Reading MD: JOSEP CAREY Measurements Intervals [place] Rate: 66 P: 67 MA: 178 QRS: -29 QRSD: 90 T: 46 QT: 346 QTc: 360 Interpretive Statements 1100 Sinus rhythm Low voltage across the precordium 9150 abnormal ECG Electronically Signed On 04-14-2024 12:41:13 EDT by JOSEP CAREY Dictated By: Josep Carey D.O. Signed By: 04/14/241 DD/ 105 TD/TT: Hand Fretted Instrument Maker: The [address] [address] Electrocardiograph Report Signed Patient: YORDY YEBOAH MR#: [id number] : 1945 Acct:[id number] Age/Sex: 78 / F ADM Date: 04/13/24 Loc: ER Attending Dr: Ordering Physician: Pita Putnam Date of Service: 04/13/24 Procedure(s): ECG 12 lead Accession Number(s): [id number] cc: [facility] Test Date: 2024-04-13 Pat Name: YORDY YEBOAH Department: 34 Room: - Gender: Female Customer Servicer: : 1945 Requ ested By: GISELLA PORTER Order Number: [id number] Reading MD: JOSEP CAREY Measurements Intervals [place] Rate: 66 P: 67 MA: 178 QRS: -29 QRSD: 90 T: 46 QT: 346 QTc: 360 Interpretive Statements 1100 Sinus rhythm Low voltage across t he precordium 9150 abnormal ECG Electronically Taylor d On 04-14-2024 12:41:13 EDT by JOSEP CAREY Dictated By: Josep Carey D.O. Signed By: 04/14/24 124 DD/ 105 TD/TT: Hand Fretted Instrument Maker: VITAMIN D 25 [place] Reviewed date:03/26/2024 03:59:05 PM Interpretation: Performing Lab: Notes/Report: [facility] , Vitamin D 57.5 20-<30 ng/mL Vit D insufficient 30-100 ng/mL Vit D sufficient >100 ng/mL Potential Toxicity <20 ng/mL Vit D deficient Performing Lab: see note ML - [facility] LB CBC AUTO DIFF Reviewed date:03/26/2024 03:59:05 PM Interpretation: Performing Lab: Notes/Report: [facility] , White Blood Count 4.9 4.0-11.0 10 3/uL Red Blood Count 4.03 4.20-5.40 10 6/uL Hemoglobin 12.0 12.0-16.0 g/dL Hematocrit 36.4 36.0-48.0 % Mean Corpuscular Volume 90.3 81.0-99.0 fL Mean Corpuscular Hemoglobin 29.8 26.7-34.0 pg Mean Corpuscular HGB Conc 33.0 29.9-35.2 g/dL Red Cell Distribution Width 12.4 11.0-15.0 % Platelet Count 277 150-450 10 3/uL Mean Platelet Volume 9.1 9.5-13.5 fL Neutrophils Percent Auto 66.7 43.0-75.0 % Lymphocytes Percent Auto 17.7 20.5-60.0 % Monocytes Percent Auto 9.9 1.7-12.0 % Eosinophils Percent Auto 4.7 0.9-7.0 % Basophils Percent Auto 0.8 0.2-2.0 % Immature Granulocytes Pct Auto 0.2 0.0-0.5 % Neutrophils Absolute Auto 3.2 1.4-6.5 10 3/uL Lymphocytes Absolute Auto 0.9 1.2-3.8 10 3/uL Monocytes Absolute Auto 0.5 0.3-0.8 10 3/uL Eosinophils Absolute Auto 0.2 0.0-0.7 10 3/uL Basophils Absolute Auto 0.0 0.0-0.1 10 3/uL Immature Granulocytes Abs Auto 0.01 0.00-0.03 10 3/uL Performing Lab: see note ML - [facility] LB TSH Reviewed date:03/05/2024 10:25:12 PM Interpretation: Performing Lab: Notes/Report: [facility] , Thyroid Stimulating Hormone 0.061 0.358-3.740 uIU/mL Performing Lab: see note ML - [facility] LB FREE T4 Reviewed date:03/05/2024 10:25:12 PM Interpretation: Performing Lab: Notes/Report: [facility] , Free T4 1.66 0.76-1.46 ng/dL Performing Lab: see note ML - [facility] LB XR foot LT min 3V Reviewed date:09/04/2024 06:26:48 PM Interpretation: Performing Lab: Notes/Report: Source Facility: [address] [address] XRay Report Signed Patient: YORDY YEBOAH MR#: [id number] : 1945 Acct:[id number] Age/Sex: 79 / F ADM Date: 09/04/24 Loc: US Attending Dr: Gisella Porter M.D. Ordering Physician: Gisella Porter M.D. Date of Service: 09/04/24 Procedure(s): XR foot LT min 3V Accession Number(s): [id number] cc: Gisella Porter M.D. [place] [address] Patient Name: YORDY YEBOAH MRN: [id number] date: 1945 Sex: F Assigned Patient Location: Current Patient Location: US Accession/Order Number: [id number] Exam Date: 09/04/2024 17:57 Report Date: 09/04/2024 17:59 At the request of: GISELLA PORTER MD Procedure: XR foot LT min 3V 3 views left foot plain film COMPARISON:None HISTORY: Left foot edema for one week. No injury ACUTE FINDINGS: None DEGENERATIVE CHANGE: Suspect Charcot type changes of the midfoot. Posterior and inferior calcaneal spurring. SOFT TISSUE FINDINGS: Mild soft tissue swelling. No subcutaneous air. No radiodense foreign body. JOINT EFFUSION: None POSTOP CHANGES: None BONE MINERALIZATION: Adequate XR/XR foot LT min 3V IMPRESSION: Extensive midfoot degenerative/Charcot changes. No acute bony findings. The calcaneal spurring. Impression dictated by: Lg Lua M.D.09/04/2024 5:59 PM Dictation Location: [place] [address] Electronically authenticated by: [id number] Y Date: 09/04/2024 17:59 Dictated By: Lg Lua D.O. Signed By: 09/04/241801 DD/ 58 TD/TT: Hand Fretted Instrument Maker: The [address] [address] XRay Report Signed Patient: YORDY YEBOAH MR#: [id number] : 1945 Acct:[id number] Age/Sex: 79 / F ADM Date: 09/04/24 Loc: US Attending Dr: Pepe Porter M.D. Ordering Physician: Gisella Porter M.D. Date of Service: 09/04/24 Procedure(s): XR don t LT min 3V Accession Number(s): [id number] cc: Gisella Porter M.D. [address] [address] Patient Name: YORDY YEBOAH MRN: [id number] date: 1945 Sex: F Assigned Patient Location: US Current Patient Loca tion: US Accession/Order Numb er: [id number] Exam Date: 09/04/2024 17:57 Report Date: 09/04/2024 17:59 At the request of: GISELLA PORTER MD Procedure: XR foot L T min 3V [address] ain film COMPARISON:None HISTORY: Left foot e shaw for one week. No injury ACUTE FINDINGS: None DEGENERATIVE CHANGE: Suspect Charcot type changes of the midfoot. Posterior and inferior calcane al spurring. SOFT TISSUE FINDINGS : Mild soft tissue swelling. No subcutaneous air. No radiodense foreign body. JOINT EFFUSION: None POSTOP CHANGES: None BONE MINERALIZATION: Adequate X R/XR foot LT min 3V IMPRESSION: Extensiv e midfoot degenerative/Charcot changes. No acute bony findings. The calcan eal spurring. Impression dictated by: Lg Lua M.D.09/04/2024 5:59 PM Dictation Location: [place] [address] Electronically authenticated by: [id number] Y Date: 09/04/2024 17:59 Dictated By: Isaiah Lua D.O. Signed By: 09/04/241801 DD/ 58 TD/TT: Hand Fretted Instrument Maker: XR chest 2V Reviewed date:06/23/2024 08:27:58 PM Interpretation: Performing Lab: Notes/Report: Source Facility: [place] [address] [place] [address] XRay Report Signed Patient: YORDY YEBOAH MR#: [id number] : 1945 Acct:[id number] Age/Sex: 78 / F ADM Date: 06/23/24 Loc: ER Attending Dr: Ordering Physician: Federico Guillory Date of Service: 06/23/24 Procedure(s): XR chest 2V Accession Number(s): [id number] cc: Gisella Porter M.D.; Federico Guillory [place] [address] Patient Name: YORDY YEBOAH MRN: [id number] date: 1945 Sex: F Assigned Patient Location: ER Current Patient Location: ER Accession/Order Number: [id number] Exam Date: 06/23/2024 17:06 Report Date: 06/23/2024 17:53 At the request of: FEDERICO GUILLORY Procedure: XR chest 2V Exam: Radiographs: XR chest 2V Reason for exam: cough Comparison: None XR/XR chest 2V IMPRESSION: Minimal scarring in the right lower lung. Chest is otherwise unremarkable. Electronically authenticated by: ARACELI RUANO Date: 06/23/2024 17:53 Dictated By: Araceli Ruano M.D. Signed By: 06/23/241755 DD/ 52 TD/TT: Hand Fretted Instrument Maker: [place] [address] XRay Report Signed Patient: YORDY YEBOAH MR#: [id number] : 1945 Acct:[id number] Age/Sex: 78 / F ADM Date: 06/23/24 Loc: ER Attending Dr: Ordering Physician: Federico Guillory Date of Service: 06/23/24 Procedure(s): XR chest 2V Accession Number(s): [id number] cc: Gisella Porter M.D. ; Federico Guillory [place] [address] Patient Name: YORDY YEBOAH MRN: [id number] date: 1945 Sex: F Assigned Patient Location: ER Current Patient Loca tion: ER Accession/Order Numb er: [id number] Exam Date: 17:06 Report Date: 06/23/2024 17:53 At the request of: FEDERICO GUILLORY Procedure: XR chest 2V Exam: Radiographs: X R chest 2V Reason for exam: cough Comparison: None X R/XR chest 2V IMPRESSION: Minimal scarring in the right lower lung. Chest is otherwise unremarkable. Electronically authenticated by: ARACELI RUANO Date: 06/23/2024 17:53 Dictated By: Van Ruano M.D. Signed By: 06/23/241755 DD/ 52 TD/TT: Hand Fretted Instrument Maker: ECG 12 lead Reviewed date:06/26/2024 03:17:59 PM Interpretation: Performing Lab: Notes/Report: Source Facility: [place] [address] Electrocardiograph Report Signed Patient: YORDY YEBOAH MR#: [id number] : 1945 Acct:[id number] Age/Sex: 78 / F ADM Date: 06/23/24 Loc: ER Attending Dr: Ordering Physician: Federico Guillory Date of Service: 06/23/24 Procedure(s): ECG 12 lead Accession Number(s): [id number] cc: [facility] Test Date: 2024-06-23 Pat Name: YORDY YEBOAH Department: Room: - Gender: Female Customer Servicer: : 1945 Requested By: [id number] Order Number: [id number] Ze MD: JOSEP CAREY Measurements Intervals [place] Rate: 113 P: 66 MA: 164 QRS: -51 QRSD: 88 T: 70 QT: 308 QTc: 375 Interpretive Statements 1120 Sinus tachycardia 2630 Left anterior fascicular block 4068 Nonspecific Twave abnormality 8003 Consistent with pulmonary disease 8102 Low QRS voltage in chest leads 0201 -- Analysis based on intrinsic rhythm 9150 abnormal ECG Electronically Signed On 06-25-2024 14:54:10 EST by JOSEP CAREY Dictated By: Josep Carey D.O. Signed By: 06/25/241453 DD/ 15 TD/TT: Hand Fretted Instrument Maker: [place] [address] Electrocardiograph Report Signed Patient: YORDY YEBOAH MR#: [id number] : 1945 Acct:[id number] Age/Sex: 78 / F ADM Date: 06/23/24 Loc: ER Attending Dr: Ordering Physician: Federico Guillory Date of Service: 06/23/24 Procedure(s): ECG 12 lead Accession Number(s): [id number] cc: [facility] Test Date: 2024-06-23 Pat Name: YORDY YEBOAH Department: 34 Room: - Gender: Female Customer Servicer: : 1945 Requ ested By: [id number] Order Number: [id number] Reading MD: JOSEP CAREY Measurements Intervals [place] Rate: 113 P: 66 MA: 164 QRS: -51 QRSD: 88 T: 70 QT: 308 QTc: 375 Interpretive Statements 1120 Sinus tachycardia 2630 Left anterior fascicular block 4068 Nonspecific Twa ve abnormality 8003 Consistent with pulmonary disease 8102 Low QRS voltage in chest leads 0201 -- Analysis bas ed on intrinsic rhythm 9150 abnormal ECG Electronically Taylor d On 06-25-2024 14:54:10 EST by JOSEP CAREY Dictated By: Josep Carey D.O. Signed By: 06/25/241453 DD/ 15 TD/TT: Hand Fretted Instrument Maker: SARS-CoV-2 Ag* Reviewed date:06/23/2024 08:27:58 PM Interpretation: Performing Lab: Notes/Report: [facility] , SARS-CoV-2 Ag NEGATIVE NEGATIVE This test has not been FDA cleared or approved, but has been terminated or authorization is revoked sooner. emergency use of in vitro diagnostic tests for detection circumstances exist justifying the authorization of (EUA) for use by authorized laboratories certified under CLIA that meet the requirements to perform moderate or high viruses or pathogens. The emergency use of this test is authorized for the duration of the declaration that and/or diagnosis of Covid-19 under section 564(b)(1) of the the detection of proteins from SARS-CoV-2, not for any other Act, 21 U.S.C. 360bbb-3(b)(1), unless the declaration is complexity testing. This test has been authorized only for authorized by the FDA under an Emergency Use Authorization Performing Lab: see note ML - [facility] LB Troponin I High Sensitivity Reviewed date:06/23/2024 08:27:58 PM Interpretation: Performing Lab: Notes/Report: [facility] , Troponin I High Sensitivity 18.6 4.0-51.3 pg/mL 99TH PERCENTILE = 51.4 PG/ML UNIVERSAL DEFINITION OF MYOCARDIAL INFARCTION. THE UPPER USED IN ISOLATION BUT SHOULD BE INTERPRETED IN CONJUNCTION HAS BEEN CONFIRMED THE DECISION THRESHOLD FOR FL WITH OTHER DIAGNOSTIC AND CLINICAL INFORMATION. DIAGNOSIS. CUT-OFF POINTS HAVE BEEN ESTABLISHED BASED ON THE FOURTH REFERENCE LIMIT (URL) OF TROPONIN, DEFINED THE 99TH PERCENTILE OF cTnI DISTRIBUTION IN A REFERENCE POPULATION, NOTE: HIGH-SENSITIVITY TROPONIN ASSAY IS NOT INTENDED TO BE Performing Lab: see note ML - [facility] LB Manual Differential Reviewed date:06/23/2024 08:27:58 PM Interpretation: Performing Lab: Notes/Report: [facility] , Segmented Neutrophils % Manual 66.0 43.0-75.0 Lymphocytes Percent Manual 26.0 20.5-60.0 % Monocytes Percent Manual 8.0 1.7-12.0 % Eosinophils Percent Manual 0.0 0.9-7.0 % Basophils Percent Manual 0.0 0.2-2.0 % Segmented Neut Absolute Manual 4.15 1.4-6.5 10 3/uL Lymphocytes Absolute Manual 1.63 1.20-3.80 10 3/uL Monocytes Absolute Manual 0.50 0.30-0.80 10 3/uL Eosinophils Absolute Manual 0.00 0.00-0.70 10 3/uL Basophils Abs Manual 0.00 0.00-0.10 1 0 3/uL Performing Lab: see note ML - [facility] LB RSV Reviewed date:06/23/2024 08:27:58 PM Interpretation: Performing Lab: Notes/Report: [facility] , Respiratory Syncytial Virus Not Detected NOT DETECTE Performing Lab: see note - [facility] PROF 14(COMP METB) Reviewed date:06/23/2024 08:27:58 PM Interpretation: Performing Lab: Notes/Report: [facility] , Sodium 135 136-145 mmol/L Potassium 3.3 3.5-5.1 mmol/L Chloride 101 98-107 mmol/L Carbon Dioxide 27.0 21.0-32.0 mmol/L Anion Gap 10.3 Glucose 116 74-106 mg/dL Blood Urea Nitrogen 6.0 7.0-18.0 mg/dL Creatinine 1.02 0.55-1.02 mg/dL Estimated GFR ( Danya >60 >=60 mL/min/1.73m 2 Estimated GFR (Non- Miguelina 52 >=60 mL/min/1.73m 2 BUN Creatinine Ratio 5.9 Calcium 8.8 8.5-10.1 mg/dL Bilirubin Total 0.5 0.2-1.0 mg/dL Aspartate Amino Transferase 19 15-37 U/L Alanine Aminotransferase 14 14-59 U/L Alkaline Phosphatase 80 46-116 U/L Total Protein 7.3 6.4-8.2 g/dL Albumin Level 2.9 3.4-5.0 g/dL Globulin 4.4 Albumin Globulin Ratio 0.7 Performing Lab: see note ML - [facility] LB LACTATE or LACTIC ACID Reviewed date:06/23/2024 08:27:58 PM Interpretation: Performing Lab: Notes/Report: [facility] , Lactate/Lactic Acid 1.2 0.4-2.0 mmol/L Performing Lab: see note - [facility] LB INFLUENZA A AND B AG Reviewed date:06/23/2024 08:27:58 PM Interpretation: Performing Lab: Notes/Report: [facility] , Influenza Virus A Antigen Positive NOTE: Live attenuated influenza vaccine viruses can cause a administered up to 7 days prior to rapid testing. positive result for a rapid influenza diagnostic test if Influenza Virus B Antigen Negative below the detection limit of the test. cannot be ruled out. Flu B antigen in the sample may be Negative for Flu B protein antigen. Infection due to Flu B Performing Lab: see note ML - [facility] LB CBC AUTO DIFF Reviewed date:06/23/2024 08:27:58 PM Interpretation: Performing Lab: Notes/Report: [facility] , White Blood Count 6.3 4.0-11.0 10 3/uL Red Blood Count 4.07 4.20-5.40 10 6/uL Hemoglobin 12.3 12.0-16.0 g/dL Hematocrit 35.9 36.0-48.0 % Mean Corpuscular Volume 88.2 81.0-99.0 fL Mean Corpuscular Hemoglobin 30.2 26.7-34.0 pg Mean Corpuscular HGB Conc 34.3 29.9-35.2 g/dL Red Cell Distribution Width 12.3 11.0-15.0 % Platelet Count 310 150-450 10 3/uL Mean Platelet Volume 9.3 9.5-13.5 fL Performing Lab: see note ML - [facility] LB BNP Reviewed date:06/23/2024 08:27:58 PM Interpretation: Performing Lab: Notes/Report: [facility] , NT Pro B Type Natriuretic Pept 891.0 <=1800.0 pg/mL Performing Lab: see note - [facility] LB PROF 14(COMP METB) Reviewed date:03/26/2024 03:59:05 PM Interpretation: Performing Lab: Notes/Report: [facility] , Sodium 138 136-145 mmol/L Potassium 3.9 3.5-5.1 mmol/L Chloride 104 98-107 mmol/L Carbon Dioxide 28.6 21.0-32.0 mmol/L Anion Gap 9.3 Glucose 111 74-106 mg/dL Blood Urea Nitrogen 11.0 7.0-18.0 mg/dL Creatinine 0.86 0.55-1.02 mg/dL Estimated GFR ( Danya >60 >=60 Estimated GFR (Non- Miguelina >60 >=60 BUN Creatinine Ratio 12.8 Calcium 8.9 8.5-10.1 mg/dL Bilirubin Total 0.5 0.2-1.0 mg/dL Aspartate Amino Transferase 19 15-37 U/L Alanine Aminotransferase 20 14-59 U/L Alkaline Phosphatase 77 46-116 U/L Total Protein 6.8 6.4-8.2 g/dL Albumin Level 2.9 3.4-5.0 g/dL Globulin 3.9 Albumin Globulin Ratio 0.7 Performing Lab: see note ML - [facility] LB PROF 14(COMP METB) Reviewed date:03/05/2024 10:25:12 PM Interpretation: Performing Lab: Notes/Report: [facility] , Sodium 141 136-145 mmol/L Potassium 4.2 3.5-5.1 mmol/L Chloride 103 98-107 mmol/L Carbon Dioxide 31.6 21.0-32.0 mmol/L Anion Gap 10.6 Glucose 101 74-106 mg/dL Blood Urea Nitrogen 10.0 7.0-18.0 mg/dL Creatinine 0.86 0.55-1.02 mg/dL Estimated GFR ( Danya >60 >=60 Estimated GFR (Non- Miguelina >60 >=60 BUN Creatinine Ratio 11.6 Calcium 8.8 8.5-10.1 mg/dL Bilirubin Total 0.5 0.2-1.0 mg/dL Aspartate Amino Transferase 20 15-37 U/L Alanine Aminotransferase 20 14-59 U/L Alkaline Phosphatase 69 46-116 U/L Total Protein 6.8 6.4-8.2 g/dL Albumin Level 3.1 3.4-5.0 g/dL Globulin 3.7 Albumin Globulin Ratio 0.8 Performing Lab: see note ML - [facility] LB CBC AUTO DIFF Reviewed date:03/05/2024 10:25:12 PM Interpretation: Performing Lab: Notes/Report: [facility] , White Blood Count 4.7 4.0-11.0 10 3/uL Red Blood Count 4.02 4.20-5.40 10 6/uL Hemoglobin 12.1 12.0-16.0 g/dL Hematocrit 37.1 36.0-48.0 % Mean Corpuscular Volume 92.3 81.0-99.0 fL Mean Corpuscular Hemoglobin 30.1 26.7-34.0 pg Mean Corpuscular HGB Conc 32.6 29.9-35.2 g/dL Red Cell Distribution Width 12.5 11.0-15.0 % Platelet Count 305 150-450 10 3/uL Mean Platelet Volume 9.6 9.5-13.5 fL Neutrophils Percent Auto 55.4 43.0-75.0 % Lymphocytes Percent Auto 23.6 20.5-60.0 % Monocytes Percent Auto 9.6 1.7-12.0 % Eosinophils Percent Auto 9.9 0.9-7.0 % Basophils Percent Auto 1.1 0.2-2.0 % Immature Granulocytes Pct Auto 0.4 0.0-0.5 % Neutrophils Absolute Auto 2.6 1.4-6.5 10 3/uL Lymphocytes Absolute Auto 1.1 1.2-3.8 10 3/uL Monocytes Absolute Auto 0.5 0.3-0.8 10 3/uL Eosinophils Absolute Auto 0.5 0.0-0.7 10 3/uL Basophils Absolute Auto 0.1 0.0-0.1 10 3/uL Immature Granulocytes Abs Auto 0.02 0.00-0.03 10 3/uL Performing Lab: see note ML - [facility] LB Reason For Referral Reason minimal bone conduct ion, persistent MICHAEL Diagnosis 1 Hearing loss (H91.90 ) Referral Organization [facility] Referring Provider First Name Vishnu Referring Provider Last Name Bertorosa Referring Provider Speciality [facility] Referred Provider Silva Britt Referred Provider Specialty Otolaryngolo gy Referral Priority Routine Medications Medication SIG (Take, Route, Frequency, Duration) Notes Start Date End Date Status Levothyroxine Sodium 112 MCG 1 tablet in the morning on an empty stomach Orally Once a day for 90 days Active Mesalamine 1.2 GM Oral for 30 Days Active Liothyronine Sodium 5 MCG 2 tablet on an empty stomach Orally Once a day for 90 days 06/11/2024 Active Dicyclomine HCl 20 MG 1 tablet Orally tw ice daily for 90 days Active Vitamin D (Cholecalciferol) Active traMADol HCl 50 MG 1 tablet Orally terrance y as needed for 30 days Active Amitriptyline HCl 50 MG TAKE 1 AND 1/2 T ABLETS BY MOUTH ONCE DAILY for 90 Active Rosuvastatin Calcium 5 MG TAKE 1 TABLET BY MOUTH DAILY for 90 days Active Etodolac 500 MG 1 tablet Orally Twic e a day for 90 days Active Immunizations Vaccine Route Administration Date Status Comme nts Flu, Fluad () (31425) 65 yrs+, single-dose syringe IM Intramuscular 06/07/2023 Administered Social History Tobacco Use: Social History Observation Description Date Details (start date - stop date) Never Smoker NA - NA Tobacco Use/Smoking Question Answer Notes Patient is a nonsmoker Alcohol Screen (Audit-C) Question Answer Notes Did you have a drink contain ing alcohol in the past year? Yes How often did you have 6 or more drinks on one occasion in the past year? Never (0 point) How many drinks did you have on a typical day when you were drinking in the past year? 1 or 2 drinks (0 point) How often did you have a dri nk containing alcohol in the past year? Less than monthly (1 point) Points 1 Interpretation Negative AUDIT-C (Standard) Question Answer Notes Did you have a drink containing alcohol in the p ast year? 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 Problem Edema (53539364) Edema (R60.9) Active confirmed Problem Anemia (739022332) Anemia (D64.9) Active confir med Problem Insomnia (184813405) Insomnia (G47.00) Active confirmed Problem Arthralgia (20552347) Arthralgia (M25.50) Active confirmed Problem Impacted cerumen (34993358) Cerumen impaction (H61.20) Active confirmed Problem Hearing loss (37561319) Hearing loss (H91.90) Active confirmed Problem Crohns disease (47321869) Crohns disease (K50.90) Active confirmed Problem Hearing loss (48307936) 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) Active confirmed Problem Influenza A virus (389969682) Influenza A (J10.1) Active confirmed Problem Acute sinusitis (71613803) Acute sinusitis treated with antibiotics in the past 60 days (J01.90) Active confirmed Problem Irritable bowel syndrome (11256638) IBS (irritable colon syndrome) (K58.9) Active confirmed Problem Inflammatory and tox ic neuropathy (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) Generalized neuropathy (G62.9) Active confirmed Problem Pure hypercholesterolemia (405075098) Elevated cholesterol (E78.00) Active confirmed Problem Hypothyroidism (68887878) Acquired underactive thyroid (E03.9) Active confirmed Vital Signs Blood pressure diastolic 80 mm Hg 10/30/2024 Height 66 in 10/30/2024 Blood pressure systolic 124 mm Hg 10/30/2024 Weight 147.8 lbs 10/30/2024 BMI 23.85 kg/m2 10/30/2024 Procedures Procedure Date Ordered Date Performed Result Body Sit e EAR IRRIGATION - performed 08/19/2024 N/A Encounters Encounter Location Date Provider Diagnosis [address] [address] 10/16/2024 Vishnu Hoy Acute non-recurrent sinusitis, unspecified location J01.90 and Nasal congestion R09.[address] [address] 10/30/2024 Vishnu Hoy Hearing loss H91.90 and Hearing loss in left ear H91.[address] [address] 03/05/2024 Vishnu Hoy Anemia D64.9 ; IBS (irritable colon syndrome) K58.9 and Disorder of thyroid, unspecified E07.[address] [address] 04/15/2024 Vishnu Hoy Arthralgia M25.[address] [address] 06/10/2024 Vishnu Hoy Disorder of thyroid, unspecified E07.9 ; Anemia D64.9 ; IBS (irritable colon syndrome) K58.9 ; Insomnia G47.00 and Impacted cerumen of right ear H61.[address] [address] 06/25/2024 Vishnu Hoy Acute bronchitis, unspecified organism J20.[address] [address] 06/27/2024 Visnhu Hoy Influenza A J10.1 [address] [place] [address] 07/03/2024 Vishnu Bertoy Acute sinusitis jolly jeanette with antibiotics in the past 60 days J01.90 [facility] [address] [facility] [place] [address] 08/01/2024 Vishnu Hoy Edema R60.9 [facility] [address] [facility] [place] [address] 08/19/2024 Vishnu Hoy Cerumen impaction H61.20 ; Serous otitis media H65.90 and Bilateral impacted cerumen H61.23 [facility] [address] [facility] [place] [address] 02/20/2024 Vishnu Porter [facility] [address] [facility] [place] [address] 03/05/2024 Vishnu Porter [facility] [address] [facility] [place] [address] 03/08/2024 Vishnu Porter [facility] [address] [facility] [place] [address] 04/13/2024 Vishnu Thomsony [facility] [address] [place] [facility] [place] [address] 06/06/2024 Vishnu Porter [facility] [address] [facility] [place] [address] 06/10/2024 Vishnu Porter [facility] [address] [facility] [place] [address] 06/10/2024 Vishnu Thomsony Hypothyroid E03.9 [facility] [address] [facility] [place] [address] 06/14/2024 Vishnu Thomsony [facility] [address] [facility] [place] [address] 2024 Vishnu Thomsony [facility] [address] [facility] [place] [address] 09/04/2024 Vishnu Thomsony [facility] [address] [facility] [place] [address] 10/16/2024 Vishnu Porter [facility] [address] [facility] [address] 12/12/2024 Vishnu Porter [facility] [address] [facility] [place] [address] 12/24/2024 Vishnu Porter Assessments Encounter Date Diagnosis (ICD Code) Assessment Notes Treatment Notes Treatment Clinical Notes Section Notes 04/15/2024 Arthralgia (ICD-10 - M25.50) stopped nsaids for her arthitis - and evelina may contribute consider celebrex - or prednisone 5 mg po Q day 06/10/2024 Disorder of thyroid, unspecified (ICD-10 - E07.9) 06/10/2024 Anemia (ICD-10 - D64.9) 06/25/2024 Acute bronchitis, unspecified organism (ICD-10 - J20.9) Rest and drink more liquids, especially water. You may use a humidifier or vaporizer to help keep the drainage moist. Eehf-qne-etlhynp Nasal Saline may help the stuffy and runny nose. Use Ibuprofen and or Tylenol as needed for fever, chills, body aches or pain. Children 5 years old should not be given yqph-jgr-jzences cough and cold medications such as guaifenesin and dextromethorphan. If you're over age 5, you may try qxnc-jmf-iatgjgc cold medications such as guaifenesin and dextromethorphan, or multi-symptom cold reliever such as Dayquil to help reduce the symptoms. Antibiotics have been prescribed. You should take these until completed and follow the directions. Antibiotics can sometimes cause upset stomach, and in rare cases, serious allergic reactions or serious gastrointestinal problems. If you start having severe abdominal pain, severe vomiting, or bloody diarrhea, you should be reevaluated by your physician or urgent care immediately. Follow up with your Primary Care Provider or return to clinic if symptoms do not improve within 3-5 days. If you develop severe symptoms such as shortness of breath, repeated vomiting, coughing up blood, or chest pain you should go to the emergency room or call 911 06/27/2024 Influenza A (ICD-10 - J10.1) 07/03/2024 Acute sinusitis treated with antibiotics in the past 60 days (ICD-10 - J01.90) 08/01/2024 Edema (ICD-10 - R60.9) 08/19/2024 Cerumen impaction (ICD-10 - H61.20) 08/19/2024 Serous otitis media (ICD-10 - H65.90) 03/05/2024 Anemia (ICD-10 - D64.9) 03/05/2024 IBS (irritable colon syndrome) (ICD-10 - K58.9) 10/16/2024 Acute non-recurrent sinusitis, unspecified location (ICD-10 - J01.90) Rest and drink more liquids, especially water. You may use a humidifier or vaporizer to help keep the drainage moist. Zcfj-jnu-ddmxvlv Nasal Saline may help the stuffy and runny nose. Use Ibuprofen and or Tylenol as needed for fever, chills, body aches or pain. Children 5 years old should not be given npsf-wcg-xlwnkvq cough and cold medications such as guaifenesin and dextromethorphan. If you're over age 5, you may try nalt-glq-ttlynwu cold medications such as guaifenesin and dextromethorphan, or multi-symptom cold reliever such as Dayquil to help reduce the symptoms. Antibiotics have been prescribed. You should take these until completed and follow the directions. Antibiotics can sometimes cause upset stomach, and in rare cases, serious allergic reactions or serious gastrointestinal problems. If you start having severe abdominal pain, severe vomiting, or bloody diarrhea, you should be reevaluated by your physician or urgent care immediately. Follow up with your Primary Care Provider or return to clinic if symptoms do not improve within 3-5 days 10/30/2024 Hearing loss (ICD-10 - H91.90) 10/30/2024 Hearing loss in left ear (ICD-10 - H91.92) 06/10/2024 Hypothyroid (ICD-10 - E03.9) 10/16/2024 Nasal congestion (ICD-10 - R09.81) 03/05/2024 Disorder of thyroid, unspecified (ICD-10 - E07.9) 08/19/2024 Bilateral impacted cerumen (ICD-10 - H61.23) 06/10/2024 IBS (irritable colon syndrome) (ICD-10 - K58.9) 06/10/2024 Insomnia (ICD-10 - G47.00) 06/10/2024 Impacted cerumen of right ear (ICD-10 - H61.21) 10/30/2024 Other tried predniosn e - flonawe and zyrtec - all faile d- janice unalbe to do air conduciton hearing Plan Of Treatment Pending Test Test Name Order Date CMP (COMPLETE METABOLIC PANEL) 3 CMP (COMPLETE METABOLIC PANEL) 4 HEMOGLOBIN A1C (GLYCO) 06/07/2023 HEMOGLOBIN A1C (GLYCO) 06/10/2024 IRON, TOTAL 06/10/2024 IRON, TOTAL 06/07/2023 LIPID PANEL (CHOL/TRIG/HDL/LDL) 06/07/20 23 LIPID PANEL (CHOL/TRIG/HDL/LDL) 06/10/20 24 CBC WITH DIFF 06/10/2024 CBC WITH DIFF 06/07/2023 VITAMIN D, 25 LEVEL (TOTAL) 06/07/2023 EAR IRRIGATION - performed 08/19/2024 BNP 07/03/2024 CBC AUTO DIFF 07/03/2024 CBC AUTO DIFF 06/09/2023 PROF 14(COMP METB) 07/03/2024 THYROID PROFILE WITH TSH 03/05/2024 VC VENOUS REFLUX KRISTINA LMT 08/01/2024 XR CHEST 2 V 07/03/2024 XR FOOT LT MIN 3 VIEWS 08/01/2024 THYROID PANEL (T4/TSH/FREE T3) 4 THYROID PANEL (T4/TSH/FREE T3) 4 THYROID PANEL (T4/TSH/FREE T3) 3 MM screening mammo BI 06/10/2024 Insurance Providers Payer Name Payer Address Payer Phone Subscriber Number Group Number Insured Name Patient Relationship to Insured Coverage Start Date Coverage End Date [place] [address] [place] [address] [phone] [id number] Yordy Thomas Self - patient is the insured [facility] [address] [place] [address] [id number] Yordy Thomas Self - patient is the insured Medications Administered Medication Instructions Date of Administration Dosage Notes Dexamethasone, 4mg/mL 06/27/2024 8 mg Medical (General) History Medical History History ICD Code Diverticulitis K57.92 Osteoarthritis M19.90 Disorder of thyroid, unspecified E07.9 Rectal bleeding K62.5 Shingles B02.9 Anemia D64.9 Arthritis M19.90 Generalized neuropathy G62.9 Acute seasonal allergic rhinitis J30.2 Elevated cholesterol E78.00 IBS (irritable colon syndrome) K58.9 Arthralgia M25.50 Acquired underactive thyroid E03.9 Surgical History Surgery Date(Month/Year) flexible sigmoidoscopy with biopsy - dr muñoz 06/21/2024 Total Knee Arthroplasty- Left Parathyroidectomy Right Total Knee Total Hip Arthroplasty- Right Cataract Extraction
--- OUTSIDE RECORDS SUMMARY | 2025-01-29 09:06 | XMS_ITS | Clinical Summary ---
Author Organization [facility] Address [address] 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
--- OUTSIDE RECORDS SUMMARY | 2025-01-29 09:06 | XMS_ITS | Clinical Summary ---
Author Organization [facility] Address [address] [place] [address] Care Team Providers Care Employment Specialist/Program Manager Name Role Phone Eric Porter MD Primary Care Provider [phone] Allergies Active Allergy Reactions Criticality Noted Date Comments Ciprofloxacin Rash Low 05/31/2013 Other Reaction(s): Unknown Nitrofurantoin 10/27/2022 Other Reaction(s): GI Upset, Other: See Comments Sulfamethoxazole-Trimethoprim Rash Low 2012 Other Reaction(s): Other: See Comments Medications amitriptyline (Elavil) 50 MG tablet 07/29/2024 Active dicyclomine (Bentyl) 20 MG tablet 12/04/2024 Active levothyroxine (Synthroid, Levoxyl) 88 MCG tablet TAKE 1 TABLET BY MOUTH ONCE DAILY FOR 30 DAYS 12/28/2024 Active liothyronine (Cytomel) 5 MCG tablet 1 (one) time each day at the same time 06/11/2024 Active mesalamine (Lialda) 1.2 g EC tablet 11/26/2024 Active rosuvastatin (Crestor) 5 MG tablet 12/04/2024 Active Active Problems Problem Noted Date Diagnosed Date BRBPR (bright red blood per rectum) 02/28/2024 Hyperlipidemia 02/28/2024 Tachycardia 02/28/2024 Rectal prolapse 02/28/2024 Osteoarthritis of both hands 02/28/2024 Neuropathy of both feet 02/28/2024 Hypothyroidism 02/28/2024 Irritable bowel syndrome with diarrhea Encounters Date Type Department Care Team Description 01/14/2025 1:40 PM EDT Office Visit [facility] [address] [facility] [address] [place] [address] Silva Britt MD 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) 01/14/2025 Bamboo flowsheet [facility] [address] [facility] [address] [place] [address] Silva Britt MD 01/14/2025 Travel 01/08/2025 1:00 PM EDT Clinical Support [facility] [address] [facility] [address] [place] [address] Nora Crane, CCC-A Asymmetrical sensorineural hearing loss (Primary Dx); Tinnitus, left; Impaired auditory discrimination, left 01/08/2025 Bamboo flowsheet [facility] [address] [facility] [address] [place] [address] Nora Crane CCC-A from Last 3 Months Family History Relation Name Status Comments Father Mother Social History Tobacco Use Types Packs/Day Years [...] on file Sexual Orientation Not on file Last Filed Vital Signs Vital Sign Reading [...] Mass Index 23.73 01/14/2025 1:38 PM EDT Plan of Treatment Upcoming Encounters Date Type Department Care Team (Late st Contact Info) Description 02/04/2025 9:00 AM EDT Office Visit [facility] [address] [place] [address] Silva Britt MD [address] [place] [address] 02/12/2025 1:15 PM EDT Office Visit [facility] [address] [place] [phone] Jesus Brown DO [address] [place] [address] Health Maintenance Due Date Last Done Comments Influenza Vaccine (#1) 2025 0, 05/12/2017, 04/29/2016 Pneumococcal Vaccine: 65+ Years Completed 7, 04/29/2016 Procedures Procedure Name Priority Date/Time Associated Diagnosis Comments AUDITORY FUNCTION TESTS Routine 01/08/2025 1:58 PM EDT from Last 3 Months Results * Auditory function tests (01/08/2025 1:58 PM EDT) Narrative Nora Crane [facility] - 01/08/2025 1:58 PM EDT Right Ear: Mild sensorineural hearing loss From 500 Hz - 1K Hz. Mild to severe sensorineural hearing loss above 3K hz Left Ear: Mild to severe sensorineural hearing loss Nora Crane [facility] AUDIOLOGY SERVICES ORDERA BLES Final Result from Last 3 Months Insurance MEDICARE [employer] Care Teams Employment Specialist/Program Manager Relationship Specialty Start Date End Date Eric Porter MD [address] [place] [address] PCP - General Family Medicine 10/30/24
--- OUTSIDE RECORDS SUMMARY | 2025-01-29 09:06 | XMS_ITS | Clinical Summary ---
Author Organization [facility] Address [address] [place] [address] Care Team Providers Care Pharmaceutical Sales Specialist Name Role Phone Eric Porter MD Primary Care Provider [phone] Allergies Active Allergy Reactions Criticality Noted Date Comments Ciprofloxacin Rash,Unknown 05/31/2013 Nitrofurantoin Monohyd/M-Cryst Other: See Comments,GI Upset 10/27/2022 Sulfamethoxazole-Trimethoprim Other: See Comments,Rash 05/31/2013 Medications amitriptyline (ELAVIL) 50 mg tablet Take 50 mg by mouth once daily. 09/21/2022 Active levothyroxine (SYNTHROID) 112 mcg tablet Take 112 mcg by mouth once daily. 04/29/2021 Active dicyclomine (BENTYL) 20 mg tablet Take 20 mg by mouth twice daily. 08/23/2022 Active rosuvastatin (CRESTOR) 5 mg tablet Take 5 mg by mouth once daily. 08/23/2022 Active cholecalciferol (VITAMIN D3) 5,000 unit tab Take 5,000 Units by mouth once daily. 04/29/2021 Active Etodolac 500 mg tablet Etodolac Active 500 MG PO Twice daily April 29, 2021 12:00am 04/29/2021 Active traMADol (ULTRAM) 50 mg tablet as needed for pain. 12/12/2023 Active Mesalamine (LIALDA) 1.2 gram EC tablet 11/26/2024 Acti ve Active Problems Problem Noted Date Diagnosed Date BRBPR (bright red blood per rectum) 02/28/2024 Rectal prolapse 02/28/2024 Tachycardia 02/28/2024 Hypothyroidism 02/28/2024 Osteoarthritis of both hands 02/28/2024 Hyperlipidemia 02/28/2024 Neuropathy of both feet 02/28/2024 Irritable bowel syndrome with diarrhea Encounters Date Type Department Care Team Description 12/20/2024 4:00 PM EDT Office Visit Colorectal Surgery [address] [place] [address] Lui Rhodes MD Rectal prolapse (Primary Dx); Pelvic floor dysfunction 12/20/2024 Travel from Last 3 Months Family History Medical History Relation Comments Heart Father age 80's Alzheimer's Disease Mother Relation Status Comments Father Mother Social History Tobacco Use Types Packs/Day Years Used Date Smoking Tobacco: Never Smokeless Tobacco: Never Tobacco Cessation:Counseling Given: Not Answered Alcohol Use Standard Drinks/Week Comments Never 0 (1 standard drink = 0.6 oz pur e alcohol) Area Deprivation Index Answer Date Maulik rded National Score (1-100), lower number is lower ri sk 53 10/27/2022 State Score (1-10), lower number is lower risk 3 10/27/2022 Data from: https://www.neighborhoodatlas.medicine.[facility]/. Last address used for calculation [address] 10/27/2022 Comments No Sex and Gender Information Value Date Recorded Sex Assigned at Female 02/27/2024 11:09 AM EDT Legal Sex Female 9:19 AM EST Gender Identity Female 02/27/2024 11:09 AM EDT Sexual Orientation Straight 02/27/2024 11 :09 AM EDT Last Filed Vital Signs Vital Sign Reading Time Taken Comments Blood Pressure 156/84 12/20/2024 3:45 PM EDT Pulse 90 12/20/2024 3:45 PM EDT Temperature 36.4 C (97.5 F) 12/20/2024 3:45 PM EDT Respiratory Rate 17 03/19/2024 10:45 AM EDT Oxygen Saturation 96% 12/20/2024 3:45 PM EDT Inhaled Oxygen Concentration - - Weight 66.8 kg (147 lb 4.3 oz) 02/28/2024 2:29 P M EDT Height 167.6 cm (5' 6 ) 02/28/2024 2:29 PM EDT Body Mass Index 23.77 02/28/2024 2:29 PM EDT Plan of Treatment Health Maintenance Due Date Last Done Comments Annual PCP Team Chronic Dise ase Visit 1963 Anxiety Screening 1963 Depression Screening 1963 DTaP,Tdap,Td Vaccine (1 - Tdap) 1964 Shingrix Vaccine (1 of 2) 1995 Medicare Annual Wellness Visit 06/26/2010 Bone Density Screening 2010 RSV Vaccine (1 - 1-dose 75+ series) 2020 Advance Directive Discussion 06/26/2024 Influenza Vaccine (#1) 2025 3, 04/02/2020, 05/12/2017, Additional history exists Diabetes Screening 02/27/2027 02/28/2024 Pneumococcal Vaccine: 50+ Completed 05/12/2017, 09/2015 Procedures Procedure Name Priority Date/Time Associated Diagnosis Comments PT ED PATIENT INFORMATION 11/30/2024 COMPREHENSIVE METABOLIC PANEL Routine 02/28/2024 3:12 PM EDT Preoperative examination Tachycardia from Last 3 Months or Most Recently Relevant to Health Maintenance Results * PT ED PATIENT INFORMATION (11/30/2024) 11/30/2024 Narrative ISHAN - 12/31/2024 Provider JOSE R your patient YORDY YEBOAH has not started their Ishan program, time has . Ishan program: PATIENT SAFETY INSTRUCTIONS FOR HEALTHCARE SETTINGS us Lui MIKEI Final Result ISHAN * (ABNORMAL) COMPREHENSIVE METABOLIC PANEL (02/28/2024 3:12 PM EDT) Protein, Total 7.5 6.3 - 8.0 g/dL 02/28/2024 4:38 PM EDT [facility] Albumin 4.1 3.9 - 4.9 g/dL 02/28/2024 4:38 PM EDT [facility] Calcium, Total 9.4 8.5 - 10.2 mg/dL 02/28/2024 4:38 PM EDT [facility] Bilirubin, Total 0.5 0.2 - 1.3 mg/dL 02/28/2024 4:38 PM [facility] Alkaline Phosphatase 77 34 - 123 U/L 02/28/2024 4:38 PM [facility] AST 18 13 - 35 U/L 02/28/2024 4:38 PM [facility] ALT 14 7 - 38 U/L 02/28/2024 4:38 PM [facility] Glucose 107(H) 74 - 99 mg/dL 02/28/2024 4:38 PM [facility] Comment: The [place] Diabetes Association (ADA) provides guidance for cutoff [...] Standards of Medical Care in Diabetes 2016, [place] [employer]. Diabetes Care. 2016.39(Suppl 1). BUN 11 7 - 21 mg/dL 02/28/2024 4:38 PM [facility] Creatinine 0.81 0.58 - 0.96 mg/dL 02/28/2024 4:38 PM [facility] Sodium 141 136 - 144 mmol/L 02/28/2024 4:38 PM [facility] Potassium 4.4 3.7 - 5.1 mmol/L 02/28/2024 4:38 PM [facility] Chloride 102 98 - 107 mmol/L 02/28/2024 4:38 PM [facility] CO2 27 22 - 30 mmol/L 02/28/2024 4:38 PM [facility] Anion Gap 12 8 - 15 mmol/L 02/28/2024 4:38 PM [facility] Estimated Glomerular Filtration Rate 74 >=60 mL/min/1. 73m 02/28/2024 4:38 PM [facility] Comment:Estimated Glomerular Filtration Rate (eGFR) is calculated using the 2020 CKD-EPI creatinine equation. This equation utilizes serum creatinine, sex, and age as parameters. The creatinine assay has traceable calibration to isotope dilution- mass spectrometry. Refer to KDIGO guidelines for clinical interpretation. In patients with unstable renal function, e.g. those with acute kidney injury, the eGFR may not accurately reflect actual GFR. Blood BLOOD SPECIMEN / Unknown Venipuncture / Unknown 02/28/2024 3:12 PM EDT 02/28/2024 3:13 PM EDT us Zaida Hernandez PA-C LABORATORY Final Result [facility] [address] [facility] [place] [address], [place] from Last 3 Months or Most Recently Relevant to Health Maintenance Insurance MEDICARE Member Subscriber Plan / Payer (Ef fective 2010-Present) Name:Yordy Yeboah Adalberto Member ID:[id number] Relation to Subscriber:Self Name:Yordy Yeboah Subscriber ID:[id number] Payer ID:Not on file Group ID:Not on file Type:Medicare Address: [facility] [place] [id number] [facility] Address: [address] [place] [address] Care Teams Pharmaceutical Sales Specialist Relationship Specialty Start Date End Date Eric Porter MD [address] [place] [address] PCP - General Family Medicine 02/29/24
--- NOTE | 2025-01-29 09:12 | MR_ITS ---
The [address] [address] Patient Name: YORDY DREW MRN: [facility]:[id number] date: 1945 Sex: F Assigned Patient Location: LAB Current Patient Location: LAB Accession/Order Number: [id number] Exam Date: 01/29/2025 15:50 Report Date: 01/29/2025 15:58 At the request of: CLIFFORD ESPINOZA MD Procedure: MR head/brain wo/w con MRI the brain and IACs performed without with contrast INDICATION: Idiopathic severe loss left ear, restricted right COMPARISON: None FINDINGS: No restricted diffusion. Age-appropriate prominence of ventricles and sulci. Minimal periventricular and subcortical T2 prolongation identified suggest of chronic small vessel ischemic disease. No shift midline structure. Basal cisterns are patent. Major intracranial arterial vascular flow was preserved. Intrinsic T2 signal within the inner ear structures is preserved. Within the left ICA, there is a 4.4 x 3.0 mm acoustic neuroma. No additional foci of abnormal retrocochlear enhancement identified. No abnormal enhancement identified elsewhere brain. Mild ethmoid sinus thickening. Cataract surgery. MR/MR head/brain wo/w con IMPRESSION: Left IAC acoustic neuroma 4.4 x by 3 mm in size. Minimal chronic small vessel changes and central involutional changes without evidence of acute traumatic process by MRI. Impression dictated by: Raudel Knight M.D. 01/29/2025 3:58 PM Dictation Location: [place] [address] Electronically authenticated by: [id number] Y Date: 01/29/2025 15:58
[2025-01-29 09:21] LABS: Estimated GFR (African America >60 (>=60 mL/min/1.73m^2); Estimated GFR (Non-African Ame >60 (>=60 mL/min/1.73m^2)
== END 2025-01-29 09:04 | disposition home or self-care (01) ==
LOC: LAB 09:03
PROVIDERS: PCP Family Medicine; Visit Provider Otolaryngology
DX: H91.22 Sudden idiopathic hearing loss, left ear (principal); D33.3 Benign neoplasm of cranial nerves
CPT/HCPCS: 36415; 70553; 82565; A9575

== ENCOUNTER 2025-02-26 09:55 | Outpatient (OUT) | payer MEDICARE, SELFPAY ==
--- OUTSIDE RECORDS SUMMARY | 2024-10-30 05:45 | XMS_ITS ---
Author Organization The [facility] in [place] Address [address] [place] [address] Care Team Providers Care Nail Cutter Name Role Phone German Vishnu Primary Care Provider Allergies Allergen (clinical drug ingredient) Drug/Non Drug Allergy documented on EMR Reaction Allergy Type Onset Date Status sulfamethoxazole / trimethoprim Bactrim Unknown Drug Allergy Active nitrofurantoin, macrocrystals / nitrofurantoin, monohydrate Macrobid Unknown Drug Allergy Active ciprofloxacin Ciprofloxacin Unknown Drug Allergy Active Reason For Referral Reason minimal bone conduct ion, persistent MICHAEL Diagnosis 1 Hearing loss (H91.90 ) Referral Organization [facility] Medicine Referring Provider First Name Vishnu Referring Provider Last Name German Referring Provider Speciality Family [facility] joanna Referred Provider Silva Britt Referred Provider Specialty Otolaryngolo gy Referral Priority Routine REASON FOR VISIT cant hear out of left ear- ongoing since May Medications Medication SIG (Take, Route, Frequency, Duration) Notes Start Date End Date Status Vitamin D (Cholecalciferol) Active traMADol HCl 50 MG 1 tablet Orally terrance y as needed for 30 days Active Amitriptyline HCl 50 MG TAKE 1 AND 1/2 T ABLETS BY MOUTH ONCE DAILY for 90 Active Rosuvastatin Calcium 5 MG TAKE 1 TABLET BY MOUTH DAILY for 90 days Active Mesalamine 1.2 GM Oral for 30 Days Active Liothyronine Sodium 5 MCG 2 tablet on an empty stomach Orally Once a day for 30 days 06/11/2024 Active Dicyclomine HCl 20 MG 1 tablet Orally tw ice daily for 90 days Active Levothyroxine Sodium 112 MCG TAKE 1 TABL ET BY MOUTH ONCE DAILY for 90 Active Etodolac 500 MG 1 tablet Orally Twic e a day for 90 days Active Social History Tobacco Use: Social History Observation Description Date Details (start date - stop date) Never Smoker NA - NA Tobacco Use/Smoking Question Answer Notes Patient is a nonsmoker Problems Problem Type SNOMED Code ICD Code Onset Dates Problem Status W/U Status Risk Notes Problem Hearing loss (39098071) Hearing loss (H91.90) Active confirmed Problem Hearing loss (79014218) 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) Active confirmed Vital Signs Blood pressure systolic 124 mm Hg 10/31/19 25 Blood pressure diastolic 80 mm Hg 025 Height 66 in 10/30/2024 Weight 147.8 lbs 10/30/2024 BMI 23.85 kg/m2 10/30/2024 Encounters Encounter Location Date Provider Diagnosis [facility] [address] [place] [address] 10/30/2024 Vishnu Hoy Hearing loss H91.90 and Hearing loss in left ear H91.92 Assessments Encounter Date Diagnosis (ICD Code) Assessment Notes Treatment Notes Treatment Clinical Notes Section Notes 10/30/2024 Hearing loss (ICD-10 - H91.90) 10/30/2024 Hearing loss in left ear (ICD-10 - H91.92) 10/30/2024 Other tried predniosne - flonawe and zyrtec - all faile d- janice unalbe to do air conduciton hearing Plan Of Treatment Treatment Notes Assessment Notes Other tried predniosne - f lonawe and zyrtec - all faile d- janice unalbe to do air conduciton hearing Referrals Referral Date Details 10/30/2024 10/30/2024, minimal bone conduction, persistent MIHCAEL, Silva Timmis Progress Notes * Billie YEBOAH ADOB:[birth year] (79 yo F)Acc No.[id number]:10/30/2024 Progress Note Patient: Billie TURNER Provider: Ruslan Porter ([facility])MD :1945 A ge:79 Y S ex:Female Date:10/30/2024 Address:[address] [place] [address] [address] [facility] Check In:09:40 AM ESTCheck O ut:10:13 AM EST Subjective: * Chief Complaints: * c ant hear out of left ear- ongoing since May * HPI: G eneral: Left ear cant hear - stated in may -0cant her anythign - no painb - - some c. A VG CGM Value: ackling - but using phone can't hear anyting. 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 Modified On:02/28/2023 Status:confirmed G47.00 Insomnia Modified On:06/07/2023 Status:confirmed K50.90 Crohns disease Modified On:05/31/2024 Status:confirmed J10.1 Influenza A Modified On:06/27/2024 Status:confirmed J01.90 Acute sinusitis jolly jeanette with antibiotics in the past 60 days Modified On:07/03/2024 Status:confirmed R60.9 Edema Modified On:08/01/2024 Status:confirmed H61.20 Cerumen impaction Modified On:08/19/2024U Status:confirmed H91.90 Hearing loss Modified On:10/30/2024 Status:confirmed H91.92 Hearing loss in left ear Modified On:10/31/2024 Status:confirmed * Medical History: * Surgical History: C ataract Extraction Total Hip Arthroplasty- Right Right Total Knee Parathyroidectomy Total Knee Arthroplasty- Left flexible sigmoidoscopy with biopsy - dr muñoz 06/21/2024 * Hospitalization/Major Diagno stic Procedure: D enies Past Hospitalization * Family History: F ather: , diagnosed with Unspecified heart disease. M other: , dementia, Cerebral vascular accident. S on(s): alive. D aughter(s): alive. B rother(s): diagnosed with Unspecified heart disease. 3 brother(s) , 2 sister(s) . 1 son(s) , 1 daughter(s) - healthy. . * Social History: T obacco Use: T obacco Use/Smoking P atient is a n onsmoker * Medications: T akingAmitriptyline HCl 50 MG Tablet TAKE 1 AND 1/2 TABLETS BY MOUTH ONCE DAILY Dicyclomine HCl 20 MG Tablet 1 tablet Orally twice daily Etodolac 500 MG Tablet 1 tablet Orally Twice a day Levothyroxine Sodium 112 MCG Tablet TAKE 1 TABLET BY MOUTH ONCE DAILY Liothyronine Sodium 5 MCG Tablet 2 tablet on an empty stomach Orally Once a day Mesalamine 1.2 GM Tablet Delayed Release Oral Rosuvastatin Calcium 5 MG Tablet TAKE 1 TABLET BY MOUTH DAILY traMADol HCl 50 MG Tablet 1 tablet Orally daily as needed Vitamin D (Cholecalciferol) Taking Amitriptyline HCl 50 MG Tablet TAKE 1 AND 1/2 TABLETS BY MOUTH ONCE DAILY Taking Dicyclomine HCl 20 MG Tablet 1 tablet Orally twice daily Taking Etodolac 500 MG Tablet 1 tablet Orally Twice a day Taking Levothyroxine Sodium 112 MCG Tablet TAKE 1 TABLET BY MOUTH ONCE DAILY Taking Liothyronine Sodium 5 MCG Tablet 2 tablet on an empty stomach Orally Once a day Taking Mesalamine 1.2 GM Tablet Delayed Release Oral Taking Rosuvastatin Calcium 5 MG Tablet TAKE 1 TABLET BY MOUTH DAILY Taking traMADol HCl 50 MG Tablet 1 tablet Orally daily as needed Taking Vitamin D (Cholecalciferol) DiscontinuedpredniSONE 20 MG Tablet 2 tablets Orally Once a day Medication List reviewed and reconciled with the patientDiscontinued predniSONE 20 MG Tablet 2 tablets Orally Once a day Medication List reviewed and reconciled with the patient * Allergies: C iprofloxacin: UnknownBactrim: UnknownMacrobid: Unknownno[Allergies Verified] Objective: * Vitals: W t:147.8lbs, Ht: 66 in, BP:124/80mm Hg, BMI:23.85Index, Ht-cm: 167.64 cm, Wt-k.04 kg. * Examination: A bdomen Exam:: L eft ear - minimal bone conudction able to hear - no air conduction able to hear. Assessment: * Assessment: 1. H earing loss - H91.90 (Primary) 2 . H earing loss in left ear - H91.92? Plan: * Treatment: 2. O thers Notes: tried predniosne - flonawe and zyrtec - all faile d- janice unalbe to do air conduciton hearing * Procedure Codes: * * Sign off status: Completed Visit Status: C HK (Check Out) true * Provider: Ruslan Porter ([facility])MD Date: 0 10/30/2024 Generated for Printi ng/Fabernadetteg/eTransmitting on: 0 02/26/2025 09:59 AM EDT History and Physical Notes * HPI (History of Present Illness) Category Sub-Category Detail Notes Category Not es General Left ear cant h ear - stated in may -0cant her anythign - no painb - - some c AVG CGM Value ackling - but using phone can't hear anyting Examination Category Sub-Category Detail Notes Category Not es Abdomen Exam: Left ear - min imal bone conudction able to hear - no air conduction able to hear Consultation Request Notes Referral Date Referring Provider Referred Provider Not es 10/30/2024 Vishnu Porter Hilary minimal bone conduction, persistent MICHAEL
--- OUTSIDE RECORDS SUMMARY | 2024-12-12 10:15 | XMS_ITS ---
Author Organization The [facility] in [place] Address [address] [place] [address] Care Team Providers Care Skinner Pelts Name Role Phone German Vishnu Primary Care Provider [phone] REASON FOR VISIT Refill Medications Medication SIG (Take, Route, Frequency, Duration) Notes Start Date End Date Status Levothyroxine Sodium 112 MCG 1 tablet in the morning on an empty stomach Orally Once a day for 90 days Active Liothyronine Sodium 5 MCG 2 tablet on an empty stomach Orally Once a day for 90 days 06/11/2024 Active Encounters Encounter Location Date Provider Diagnosis [address] [address] 12/12/2024 Vishnu German Plan Of Treatment Medication Medication Name Sig Start Date Stop Date Notes Levothyroxine Sodium 112 MCG 1 tablet in the morning on an empty stomach Orally Once a day for 90 days Liothyronine Sodium 5 MCG 2 tablet on an empty stomach Orally Once a day for 90 days 06/11/2024 Progress Notes * DARYLKristy IZAGUIRREh ADOB:[birth year] (79 yo F)Acc No.[id number]:12/12/2024 Patient: Riki WEBER Billie A :1945 A ge:79 Y S ex:Female Address:[address] [facility] [address] [place], [address] * Refills Refill Levothyroxine Sodium Tablet, 112 MCG, Orally, 90 Tablet, 1 tablet in the morning on an empty stomach, Once a day, 90 days, Refills=3 Refill Liothyronine Sodium Tablet, 5 MCG, Orally, 180 Tablet, 2 tablet on an empty stomach, Once a day, 90 days, Refills=3 * true * Date: Generated for Na pineda/Elton/Nena on: 0 02/26/2025 09:58 AM EDT
--- OUTSIDE RECORDS SUMMARY | 2024-12-24 10:07 | XMS_ITS ---
Author Organization [facility] in [place] Address [address] [place] [address] Care Team Providers Care Director Of Corporate Real Estate Name Role Phone German Vishnu Primary Care Provider REASON FOR VISIT refill Medications Medication SIG (Take, Route, Frequency, Duration) Notes Start Date End Date Status Liothyronine Sodium 5 MCG 2 tablet on an empty stomach Orally Once a day for 90 days 06/11/2024 Active Encounters Encounter Location Date Provider Diagnosis [facility] [address] [place] [address] 12/24/2024 Vishnu Porter Plan Of Treatment Medication Medication Name Sig Start Date Stop Date Notes Liothyronine Sodium 5 MCG 2 tablet on an empty stomach Orally Once a day for 90 days 06/11/2024 Progress Notes * Billie YEBOAH ADOB:[birth year] (79 yo F)Acc No.[id number]:12/24/2024 Patient: Billie TURNER :1945 A ge:79 Y S ex:Female Address:[address] [place] [address], [address] * Refills Refill Liothyronine Sodium Tablet, 5 MCG, Orally, 180 Tablet, 2 tablet on an empty stomach, Once a day, 90 days, Refills=3 * true * Date: Generated for Printi ng/Faxing/eTransmitting on: 0 02/26/2025 09:59 AM EDT
--- OUTSIDE RECORDS SUMMARY | 2025-02-12 13:15 | XMS_ITS | Encounter Summary ---
Author Organization [facility] Address [address] [place] [address] Care Team Providers Care Hospital Nursing Assistant Name Role Phone Eric Porter MD Primary Care Provider + Reason for Visit * Reason Comments YAG Blurred Vision Encounter Details Date Type Department Care Team (Late st Contact Info) Description 02/12/2025 1:15 PM EDT Office Visit [facility] [address] [place] [id number] Jesus Brown DO [address] [place] [address] Left posterior capsular opacification (Primary Dx) Social History Tobacco Use Types Packs/Day Years Used Date Smoking Tobacco: Never Smokeless Tobacco: Never Alcohol Use Standard Drinks/Week Comments Not Currently 0 (1 standard drink = 0.6 oz pur e alcohol) Occ Comments Unknown Sex and Gender Information Value Date Recorded Sex Assigned at Not on file Legal Sex Female 8:32 PM EDT Gender Identity Not on file Sexual Orientation Not on file documented as of this encounter Progress Notes * DO Jai Gannon 02/12/2025 1:15 PM EDT Images from the original note were not included. Subjective Patient ID: Billie Yeboah is a 79 y.o. female. Chief Complaint YAG; Blurred Vision HPI YAG In both eyes. Blurred Vision In both eyes. Vision is blurred. Occurring constantly. It is worse in the morning and at random times. Context: distance vision, computer work, driving and night driving. Since onset it is gradually worsening. Associated symptoms include dryness (floaters). Treatments tried include eye drops and glasses. Response to treatment was mild improvement. Comments Pt here for YAG eval referred by Dr Hart. Pt is having blurry vision in the left eye (OS), mainly inthe morning and it is not constant. Using Systane drops in both eyes (OU) about 3 times a week. Pt has occasional small spot like floaters in both eyes (OU). Last edited by Jesus Brown DO on 02/12/2025 1:30 PM. No current outpatient medications on file. (Ophthalmic Agents) No current facility-administered medications for this visit. (Ophthalmic Agents) Current Outpatient Medications (Other) Medication Sig Dispense Refill amitriptyline (Elavil) 50 MG tablet dicyclomine (Bentyl) 20 MG tablet levothyroxine (Synthroid, Levoxyl) 88 MCG tablet TAKE 1 TABLET BY MOUTH ONCE DAILY FOR 30 DAYS liothyronine (Cytomel) 5 MCG tablet 1 (one) time each day at the same time mesalamine (Lialda) 1.2 g EC tablet rosuvastatin (Crestor) 5 MG tablet No current facility-administered medications for this visit. (Other) Past Medical History: Diagnosis Date HL (hearing loss) Hypercholesteremia Hypothyroid Type 1 Navi's syndrome OS Allergies Allergen Reactions Nitrofurantoin Other Reaction(s): GI Upset, Other: See Comments Ciprofloxacin Rash Other Reaction(s): Unknown Sulfamethoxazole-Trimethoprim Rash Other Reaction(s): Other: See Comments Review of Systems Objective Base Eye Exam Visual Acuity (Snellen - Linear) Right Left Dist cc 20/50 -2 20/70 -1 Correction: Glasses Tonometry (Applanation, 1:31 PM) Right Left Pressure 16 16 Pupils Pupils Right PERRL Left PERRL Visual Bower Left Right Full Full Extraocular Movement Right Left Full Full Neuro/Psych Oriented x3: Yes Dilation Both eyes: 1.0% Mydriacyl @ 1:17 PM Additional Tests Keratometry K1 Merrill K2 Merrill Right 44.00 94 45.50 4 Left 44.00 53 45.00 143 Slit Lamp and Fundus Exam External Exam Right Left External Normal Normal Slit Lamp Exam Right Left Lids/Lashes Blepharitis, Ptosis Blepharitis, Ptosis Conjunctiva/Sclera White and quiet White and quiet Cornea Decreased tear film Decreased tear film Anterior Chamber Deep and quiet Deep and quiet Iris Round and reactive Round and reactive Lens Posterior chamber intraocular lens, 1+ Posterior capsular opacification Posterior chamber intraocular lens, 3+ Posterior capsular opacification Anterior Vitreous Normal Normal Fundus Exam Right Left Disc Normal Normal Macula Normal Normal Vessels Normal Normal Periphery Normal Normal Refraction Wearing Rx Sphere Cylinder Merrill Add Right +1.25 -2.50 096 +2.25 Left -0.75 -0.25 158 +2.25 Manifest Refraction Sphere Cylinder Merrill Right +1.25 -2.50 090 Left -0.50 -1.50 067 Assessment/Plan Diagnoses and all orders for this visit: Left posterior capsular opacification - PCO OS: (Posterior Capsule Opacification) Can be observed without intervention if PCO is not visually significant. Nd:YAG laser capsulotomy may be considered if impairment of vision rises to a level that dose not meet the patient's functional needs or interferes with activities of daily living. Risks, benefits and alternatives to the procedure will be reviewed. If the patient has undergone Nd:YAG laser capsulotomy, they are to notify their water pump assembler promptly if they have a significant change in symptoms, such as flashes of light (photopsia), an increase in floaters, loss of visual field or decrease in visual acuity. documented in this encounter Plan of Treatment Not on file documented as of this encounter Visit Diagnoses Diagnosis Left posterior capsular opacification- Primary Unspecified after-cataract documented in this encounter Care Teams Hospital Nursing Assistant Relationship Specialty Start Date End Date Eric Porter MD [address] [place] [address] PCP - General Family Medicine 10/30/24 documented as of this encounter
--- OUTSIDE RECORDS SUMMARY | 2025-02-13 14:20 | XMS_ITS | Encounter Summary ---
Author Organization [facility] Address [address] [place] [address] Phone Care Team Providers Care Arborer Name Role Phone Eric Porter MD Primary Care Provider [phone] Encounter Details Date Type Department Care Team (Latest Contact Info) Description 02/13/2025 2:20 PM EDT - 02/13/2025 11:59 PM EDT Hospital Encounter [facility] [address] [place] [address] Discharge Disposition: Home Social History Tobacco Use Types Packs/Day Years Used Date Smoking Tobacco: Never Assessed Comments Unknown Sex and Gender Information Value Date Recorded Sex Assigned at Not on file Legal Sex Female 1:44 PM EST Gender Identity Not on file Sexual Orientation Not on file documented as of this encounter Plan of Treatment Upcoming Encounters Date Type Department Care Team (Late st Contact Info) Description 03/06/2025 1:45 PM EDT Office Visit [facility] [address] [facility] [address] [place] [address] Patel Brown MD [address] [facility] [address] [place] [address] documented as of this encounter Procedures Procedure Name Priority Date/Time Associated Diagnosis Comments MR TRANSFER OF OUTSIDE FILMS Routine 02/13/2025 2:44 PM EDT documented in this encounter Results * MR transfer of outside films (02/13/2025 2:44 PM EDT) Narrative IMAGING - 02/13/2025 2:45 PM EDT Outside images for comparison or treatment purposes, not interpreted by Radiologists. us Patel Brown MD IMG MRI PROCEDURES Final Resu lt IMAGING documented in this encounter Visit Diagnoses Not on filedocumented in this encounter Care Teams Arborer Relationship Specialty Start Date End Date Eric Porter MD [address] [place] [address] PCP - General Family Medicine 02/12/25 documented as of this encounter
--- OUTSIDE RECORDS SUMMARY | 2025-02-18 07:31 | XMS_ITS ---
Author Organization [facility] Address [address] [place] [address] Care Team Providers Care Classroom Coordinator Name Role Phone Vishnu Porter Primary Care Provider REASON FOR VISIT appt with specialist Encounters Encounter Location Date Provider Diagnosis [facility] [address] [place] [address] 02/18/2025 Vishnu Porter Plan Of Treatment No Information Progress Notes * NITOBillie IZAGUIRRE ADOB:[birth year] (79 yo F)Acc No.[id number]:02/18/2025 Patient: Billie TURNER :1945 A ge:79 Y S ex:Female Address:[address] [place] [address], [address] * true * Date: Generated for Na pineda/Elton/eTransmitting on: 0 02/26/2025 09:58 AM EDT
--- OUTSIDE RECORDS SUMMARY | 2025-02-26 09:58 | XMS_ITS | Encounter Summary ---
Author Organization [facility] Address [facility] [place] [address] Care Team Providers Care In School Suspension Coordinator Name Role Phone Eric Porter MD Primary Care Provider [phone] Source Comments In the event this information is protected by the Federal Confidentiality of Alcohol and Drug AbusePatient Records regulations: The Federal rules restrict any use of the information to criminally investigate or prosecute any alcohol or drug abuse patient.[facility] Encounter Details Date Type Department Care Team (Late st Contact Info) Description 06/24/2024 Lab Requisition [facility] [place] [address] Manoj Forbes MD [address] [address] Person encountering health services to consult on behalf of another person Social History Tobacco Use Types Packs/Day Years Used Date Smoking Tobacco: Never Smokeless Tobacco: Never Alcohol Use Standard Drinks/Week Comments Never 0 (1 standard drink = 0.6 oz pur e alcohol) Area Deprivation Index Answer Date Maulik rded National Score (1-100), lower number is lower ri sk 53 10/27/2022 State Score (1-10), lower number is lower risk 3 10/27/2022 Data from: https://www.neighborhoodatlas.[facility]/. Last address used for calculation [address] 10/27/2022 Comments No Sex and Gender Information Value Date Recorded Sex Assigned at Female 02/27/2024 11:09 AM EDT Legal Sex Female 9:19 AM EST Gender Identity Female 02/27/2024 11:09 AM EDT Sexual Orientation Straight 02/27/2024 11 :09 AM EDT documented as of this encounter Plan of Treatment Not on file documented as of this encounter Procedures Procedure Name Priority Date/Time Associated Diagnosis Comments SURGICAL PATHOLOGY Routine 06/21/2024 9: 28 AM EST Person encountering health services to consult on behalf of another person documented in this encounter Results * SURGICAL PATHOLOGY (06/21/2024 9:28 AM EST) Case Report Surgical Pathology Report Case: [id number] Authorizing Provider: Manoj Forbes MD Collected: 06/21/2024 09:28 AM Ordering Location: [facility] Main Received: 06/24/2024 12:23 PM [facility] Pathologist: Lizeth Chamberlain MD Specimens: A) - Colon, Biopsy, Descending colon bx r/o Chrons and ulcerative colitis [id number] A B) - Colon, Biopsy, Sigmoid colon bx r/o Chron's, ulcerative colitis, SCAD [id number] B C) - Rectum, Biopsy, Rectal bx r/o Chron's and ulcerative colitis [id number] 06/25/2024 9:54 AM EST [facility] FINAL DIAGNOSIS A. Colon, ascending, biopsy: - Colonic mucosa with no pathologic diagnostic abnormality; negative for granulomas or dysplasia. B. Colon, sigmoid, biopsy: - Chronic minimally active colitis; negative for granulomas or dysplasia. C. Rectum, biopsy: - Chronic mildly active colitis; negative for granulomas or dysplasia. 06/25/2024 9:54 AM EST [facility] at 0954 EST Gross Description A. Colon, Biopsy Received in formalin are two [...] 2024 12:54 PM [place] [address] 06/25/2024 9:54 AM EST [facility] Clinical History Colitis 06/25/2024 9:54 AM EST [facility] Performing Lab Diagnostic interpretation performed at [facility], [address] [id number] Industrial Fabric Cutter: Lizeth Chamberlain M.D. 06/25/2024 9:54 AM EST [facility] Tissue BIOPSY OF RECTUM / Unknown 06/21/2024 9:28 AM EST 06/24/2024 12:23 PM EST Tissue specimen (specimen) COLONIC BIOPSY SPECIMEN / Unknown 06/21/2024 9:28 AM EST 06/24/2024 12:23 PM EST Tissue specimen (specimen) BIOPSY OF RECTUM / Unknown 06/21/2024 9:28 AM EST 06/24/2024 12:23 PM EST Manoj Forbes MD SURGICAL PATHOLOGY Final Result Performing Organization Address City/State/RUST Co de Phone Number [facility] [place] [address], [facility] [address] [facility] [place] [address], documented in this encounter Visit Diagnoses Diagnosis Person encountering health services to consult on behalf of another person Other person consulting on behalf of another person documented in this encounter Care Teams In School Suspension Coordinator Relationship Specialty Start Date End Date Eric Porter MD [address] [place] [id number] PCP - General Family Medicine 02/29/24 documented as of this encounter
--- OUTSIDE RECORDS SUMMARY | 2025-02-26 09:59 | XMS_ITS | Encounter Summary ---
Author Organization [facility] Address [address] [place] [address] Care Team Providers Care Ward Helper Name Role Phone Eric Porter MD Primary Care Provider + Encounter Details Date Type Department Care Team (Late st Contact Info) Description 02/12/2025 Bamboo flowsheet [facility] [address] [place] [phone] Jesus Brown, DO [address] [place] [address] Social History Tobacco Use Types Packs/Day Years [...] documented as of this encounter Visit Diagnoses Not on filedocumented in this encounter Care Teams Ward Helper Relationship Specialty Start Date End Date Eric Porter MD [address] [facility] [address] PCP - General Family Medicine 10/30/24 documented as of this encounter
--- OUTSIDE RECORDS SUMMARY | 2025-02-26 09:59 | XMS_ITS | Clinical Summary ---
Author Organization [facility] Address [address] [place] [address] Care Team Providers Care Care Support Representative Name Role Phone Eric Porter MD Primary Care Provider [phone] Allergies Active Allergy Reactions Criticality Noted Date [...] Visit Colorectal Surgery [address] [place] [address] Lui Rhodes MD Rectal prolapse (Primary Dx); [...] is lower risk 3 10/27/2022 Data from: https://www.neighborhoodatlas.medicine.[facility]/. Last address used for calculation [address] [address] 10/27/2022 Comments No Sex [...] - 8.0 g/dL 02/28/2024 4:38 PM EDT [facility] Albumin 4.1 3.9 - 4.9 g/dL 02/28/2024 4:38 PM EDT [facility] Calcium, Total 9.4 8.5 - 10.2 mg/dL 02/28/2024 4:38 PM EDT [facility] Bilirubin, Total 0.5 0.2 - 1.3 mg/dL 02/28/2024 4:38 PM [facility] Alkaline Phosphatase 77 34 - 123 U/L 02/28/2024 4:38 PM [facility] AST 18 13 - 35 U/L 02/28/2024 4:38 PM [facility] ALT 14 7 - 38 U/L 02/28/2024 4:38 PM [facility] Glucose 107(H) 74 - 99 mg/dL 02/28/2024 4:38 PM [facility] Comment: The [place] Diabetes Association (ADA) provides guidance for cutoff [...] Standards of Medical Care in Diabetes 2016, [place] Diabetes Association. Diabetes Care. 2016.39(Suppl 1). BUN 11 7 - 21 mg/dL 02/28/2024 4:38 PM [facility] Creatinine 0.81 0.58 - 0.96 mg/dL 02/28/2024 4:38 PM [facility] Sodium 141 136 - 144 mmol/L 02/28/2024 4:38 PM [facility] Potassium 4.4 3.7 - 5.1 mmol/L 02/28/2024 4:38 PM [facility] Chloride 102 98 - 107 mmol/L 02/28/2024 4:38 PM [facility] CO2 27 22 - 30 mmol/L 02/28/2024 4:38 PM [facility] Anion Gap 12 8 - 15 mmol/L 02/28/2024 4:38 PM [facility] Estimated Glomerular Filtration Rate 74 >=60 mL/min/1. 73m 02/28/2024 4:38 PM [facility] Comment:Estimated Glomerular Filtration Rate (eGFR) is [...] us Zaida Hernandez PA-C LABORATORY Final Result [facility] [address] [place] [address], [place] from Last 3 Months or Most Recently Relevant to Health Maintenance Insurance MEDICARE Member Subscriber Plan / Payer (Ef fective 2010-Present) Name:Yordy Yeboah Adalberto Member ID:[id number] Relation to Subscriber:Self Name:Yordy Yeboah Subscriber ID:[id number] Payer ID:Not on file Group ID:Not on file Type:Medicare Address: [facility] [place] [address] Care Teams Care Support Representative Relationship Specialty Start Date End Date Eric Porter MD [address] [place] [address] PCP - General Family Medicine 02/29/24
--- OUTSIDE RECORDS SUMMARY | 2025-02-26 09:59 | XMS_ITS | Clinical Summary ---
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 02/04/2025 BRBPR (bright red blood per rectum) 02/28/2024 Hyperlipidemia 02/28/2024 Tachycardia 02/28/2024 Rectal prolapse 02/28/2024 Osteoarthritis of both hands 02/28/2024 Neuropathy of both feet 02/28/2024 Hypothyroidism 02/28/2024 Irritable bowel syndrome with diarrhea Encounters Date Type Department Care Team Description 02/12/2025 1:15 PM EDT Office Visit [facility] [address] [place] [address] Jesus Brown DO Left posterior capsular opacification (Primary Dx) 02/12/2025 Bamboo flowsheet [facility] [address] [place] [address] Jesus Brown DO 02/12/2025 Travel 02/04/2025 9:00 AM EDT Office Visit [facility] [address] [facility] [address] [place] [address] Silva Britt MD Vestibular schwannoma (HCC) (Primary Dx) 02/04/2025 Bamboo flowsheet [facility] [address] [facility] [address] [place] [address] Silva Britt MD 02/04/2025 Travel 01/29/2025 Clinisync Result Encounter [facility] External Department Unsolicited Silva Britt MD 01/29/2025 Clinisync Result Encounter [facility] External Department Unsolicited Silva Britt MD 01/14/2025 1:40 PM EDT Office Visit [facility] [address] 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) 01/14/2025 Bamboo flowsheet [facility] [address] [place] [address] Silva Britt MD 01/14/2025 Travel 01/08/2025 1:00 PM EDT Clinical Support [facility] [address] [place] [address] Nora Crane, CCC-A Asymmetrical sensorineural hearing loss (Primary Dx); Tinnitus, left; Impaired auditory discrimination, left 01/08/2025 Bamboo flowsheet [facility] [address] [place] [address] Royce Nora Glover, CCC-A from Last 3 Months Family History Medical History Relation Name Comments Cataracts Father Cataracts Mother Relation Name Status Comments Father Mother Social [...] Sign Reading Time Taken Comments Blood Pressure 138/86 02/04/2025 9:01 AM EDT Pulse 90 02/04/2025 9:01 AM EDT Temperature - - Respiratory Rate - - Oxygen Saturation - - Inhaled Oxygen Concentration - - Weight 66.7 kg (147 lb) 02/04/2025 9:01 AM EDT Height 167.6 cm (5' 6 ) 02/04/2025 9:01 AM EDT Body Mass Index 23.73 02/04/2025 9:01 AM EDT Plan of Treatment Health Maintenance Due Date Last Done Comments Influenza Vaccine (#1) 2025 0, 05/12/2017, 04/29/2016 Pneumococcal Vaccine: 65+ Years Completed 7, 04/29/2016 Procedures Procedure Name Priority Date/Time Associated Diagnosis Comments MRI HEAD/BRAIN WO/W CONTR 01/29/2025 3:58 PM EDT [facility] CREATININE Routine 01/29/2025 9:08 AM EDT AUDITORY FUNCTION TESTS Routine 01/08/2025 1:58 PM EDT from Last 3 Months Results * MRI HEAD/BRAIN WO/W CONTR (01/29/2025 3:58 PM EDT) Anatomical Region Laterality Modality Radiographic Emily ging 01/29/2025 3:58 PM EDT Narrative 01/29/2025 4:01 PM EDT [address] [address] Magnetic Resonance Report Signed Patient: YORDY YEBOAH MR#: [id number] : 1945 Acct:[id number] Age/Sex: 79 / F ADM Date: 01/29/25 Loc: LAB Attending Dr: Silva Britt M.D. Ordering Physician: Silva Britt M.D. Date of Service: 01/29/25 Procedure(s): MR head/brain wo/w con Accession Number(s): [id number] cc: Eric Porter M.D.; Silva Britt M.D. [address] [address] Patient Name: YORDY YEBOAH MRN: [id number] date: 1945 Sex: F Assigned Patient Location: LAB Current Patient Location: LAB Accession/Order Number: [id number] Exam Date: 01/29/2025 15:50 Report Date: 01/29/2025 15:58 At the request of: SILVA BRITT MD Procedure: MR head/brain wo/w con MRI the brain and IACs performed without with contrast INDICATION: Idiopathic severe loss left ear, restricted right COMPARISON: None FINDINGS: No restricted diffusion. Age-appropriate prominence of ventricles and sulci. Minimal periventricular and subcortical T2 prolongation identified suggest of chronic small vessel ischemic disease. No shift midline structure. Basal cisterns are patent. Major intracranial arterial vascular flow was preserved. Intrinsic T2 signal within the inner ear structures is preserved. Within the left ICA, there is a 4.4 x 3.0 mm acoustic neuroma. No additional foci of abnormal retrocochlear enhancement identified. No abnormal enhancement identified elsewhere brain. Mild ethmoid sinus thickening. Cataract surgery. MR/MR head/brain wo/w con IMPRESSION: Left IAC acoustic neuroma 4.4 x by 3 mm in size. Minimal chronic small vessel changes and central involutional changes without evidence of acute traumatic process by MRI. Impression dictated by: Raudel Knight M.D. 01/29/2025 3:58 PM Dictation Location: [place] [address] Electronically authenticated by: [id number] Y Date: 01/29/2025 15:58 Dictated By: Raudel Knight M.D. Signed By: 01/29/25 1601 DD/ 1558 TD/TT: Crowning Inspector: Procedure Note Radiology, Radiologist, MD - 01/29/2025 [place] [address] Magnetic Resonance Report Signed Patient: YORDY YEBOAH AMR#: [id number] : 1945cct:[id number] Age/Sex: 79 / FADM Date: 01/29/25 Loc: LAB Attending Dr: Silva Britt M.D. Ordering Physician: Silva Britt M.D. Date of Service: 01/29/25 Procedure(s): MR head/brain wo/w con Accession Number(s): [id number] cc: Eric Porter M.D.; Silva Britt M.D. [place] [address] Patient Name: YORDY YEBOAH MRN: [facility]:[id number] date: 1945 Sex: F Assigned Patient Location: LAB Current Patient Location: LAB Accession/Order Number: [id number] Exam Date: 01/29/2025 15:50 Report Date: 01/29/2025 15:58 At the request of: SILVA BRITT MD Procedure: MR head/brain wo/w con MRI the brain and IACs performed without with contrast INDICATION: Idiopathic severe loss left ear, restricted right COMPARISON: None FINDINGS: No restricted diffusion. Age-appropriate prominence of ventricles andsulci. Minimal periventricular and subcortical T2 prolongation identified suggestof chronic small vessel ischemic disease. No shift midline structure. Basal cisterns are patent. Major intracranial arterial vascular flow waspreserved. Intrinsic T2 signal within the inner ear structures is preserved. Withinthe left ICA, there is a 4.4 x 3.0 mm acoustic neuroma. No additional fociof abnormal retrocochlear enhancement identified. No abnormal enhancement identified elsewhere brain. Mild ethmoid sinus thickening. Cataract surgery. MR/MR head/brain wo/w con IMPRESSION: Left IAC acoustic neuroma 4.4 x by 3 mm in size. Minimal chronic small vessel changes and central involutional changeswithout evidence of acute traumatic process by MRI. Impression dictated by: Raudel Knight M.D. 01/29/2025 3:58 PM Dictation Location: [place] [address] Electronically authenticated by: [id number] Y Date: :58 Dictated By: Raudel Knight M.D. Signed By:01/29/25 1601 DD/ 1558 TD/TT: Crowning Inspector: Silva Britt MD IMG XR PROCEDURES Final Resul t * [facility] CREATININE (01/29/2025 9:08 AM EDT) CREATININE 0.73 0.55 - 1.02 mg/dL [facility] EGFR-AF [place] >60 >=60 mL/min/1.7 3m 2 [facility] EGFR-NON AF [place] >60 >=60 mL/min/1.7 3m 2 [facility] 01/29/2025 9:08 AM EDT 01/29/2025 9:11 AM EDT Narrative [facility] - 01/29/2025 9:21 AM EDT Silva Britt MD [facility] Final Result [facility] * Auditory function tests (01/08/2025 1:58 PM EDT) Narrative Nora Crane CCC-A - 01/08/2025 1:58 PM EDT Right Ear: Mild sensorineural hearing loss From 500 Hz - 1K Hz. Mild to severe sensorineural hearing loss above 3K hz Left Ear: Mild to severe sensorineural hearing loss Nora Crane CCC-A AUDIOLOGY SERVICES ORDERA BLES Final Result from Last 3 Months Insurance MEDICARE [facility] Care Teams Traffic Analysis Technician Relationship Specialty Start Date End Date Eric Porter MD [address] [facility] [place] [address] PCP - General Family Medicine 10/30/24
--- OUTSIDE RECORDS SUMMARY | 2025-02-26 09:59 | XMS_ITS | Encounter Summary ---
Author Organization [facility] Address [address] [place] [address] Phone Care Team Providers Care Clinical Systems Analyst Name Role Phone Eric Porter MD Primary Care Provider [phone] Encounter Details Date Type Department Care Team (Late st Contact Info) Description 02/13/2025 Telephone [facility] [address] [facility] [address] [place] [address] Alida Prakash RN Social History Tobacco Use Types Packs/Day Years Used Date Smoking Tobacco: Never Assessed Comments Unknown Sex and Gender Information Value Date Recorded Sex Assigned at Not on file Legal Sex Female 1:44 PM EST Gender Identity Not on file Sexual Orientation Not on file documented as of this encounter Miscellaneous Notes * Telephone Encounter - Alida Prakash RN - 02/13/2025 10:14 AM EDT Spoke with patient regarding scheduling with with Dr. Brown for acoustic neuroma follow up. Patient had hearing test and will bring imaging disc to appointment. Appointment scheduled and confirmed with patient. She has direct office line if she needs to make adjustments in the near future. documented in this encounter Plan of Treatment Upcoming Encounters Date Type Department Care Team (Late st Contact Info) Description 03/06/2025 1:45 PM EDT Office Visit [facility] [address] [place] [address] Patel Brown MD [address] [facility] [address] [place] [address] documented as of this encounter Visit Diagnoses Not on filedocumented in this encounter Care Teams Clinical Systems Analyst Relationship Specialty Start Date End Date Eric Porter MD [address] [place] [address] PCP - General Family Medicine 02/12/25 documented as of this encounter
--- OUTSIDE RECORDS SUMMARY | 2025-02-26 09:59 | XMS_ITS | Clinical Summary ---
Author Organization [facility] Address [address] [place] [address] Phone Care Team Providers Care Director Of Teaching And Learning Name Role Phone Eric Porter MD Primary Care Provider [phone] Encounters Date Type Department Care Team Description 02/13/2025 2:20 PM EDT - 02/13/2025 11:59 PM EDT Hospital Encounter [facility] [address] [place] [address] Discharge Disposition: Home 02/13/2025 Telephone [facility] [address] [facility] [address] [place] [address] Alida Prakash RN from Last 3 Months Social History Tobacco Use Types Packs/Day Years Used Date Smoking Tobacco: Never Assessed Comments Unknown Sex and Gender Information Value Date Recorded Sex Assigned at Not on file Legal Sex Female 1:44 PM EST Gender Identity Not on file Sexual Orientation Not on file Plan of Treatment Upcoming Encounters Date Type Department Care Team (Late st Contact Info) Description 03/06/2025 1:45 PM EDT Office Visit [facility] [address] [place] [address] Patel Brown MD [address] [facility] [address] [place] [address] Health Maintenance Due Date Last Done Comments Lipid Panel 1945 Yearly Adult Physical 1945 Hepatitis C Screening 1963 DTaP/Tdap/Td Vaccines (1 - Tdap) 1967 Pneumococcal Vaccine (1 of 1 - PCV) 1995 Zoster Vaccines (1 of 2) 1995 Bone Density Scan 2010 RSV High Risk: (Elderly (60+ ) or Population) (1 - 1-dose 75+ series) 2020 COVID-19 Vaccine (4 - 2023-2 5 season) 2024 04/16/2021, 09/01/2020, 08/03/2020 Influenza Vaccine (#1) 2025 HIB Vaccines Aged Out No longer eligi ble based on patient's age to complete this topic HPV Vaccines Aged Out No longer eligi ble based on patient's age to complete this topic Hepatitis A Vaccines Aged Out No long er eligible based on patient's age to complete this topic Hepatitis B Vaccines Aged Out No long er eligible based on patient's age to complete this topic IPV Vaccines Aged Out No longer eligi ble based on patient's age to complete this topic Meningococcal Vaccine Aged Out No sadie sheree eligible based on patient's age to complete this topic Rotavirus Vaccines Aged Out No longer eligible based on patient's age to complete this topic Procedures Procedure Name Priority Date/Time Associated Diagnosis Comments MR TRANSFER OF OUTSIDE FILMS Routine 02/13/2025 2:44 PM EDT from Last 3 Months Results * MR transfer of outside films (02/13/2025 2:44 PM EDT) Narrative IMAGING - 02/13/2025 2:45 PM EDT Outside images for comparison or treatment purposes, not interpreted by Radiologists. us Patel Brown MD IMG MRI PROCEDURES Final Resu lt IMAGING from Last 3 Months Care Teams Director Of Teaching And Learning Relationship Specialty Start Date End Date Eric Porter MD [address] [place] [address] PCP - General Family Medicine 02/12/25
--- OUTSIDE RECORDS SUMMARY | 2025-02-26 09:59 | XMS_ITS | Patient Health Record ---
Author Organization [facility] in [place] Address [address] [place] [address] Care Team Providers Care Mri Supervisor Name Role Phone GermanVishnu Primary Care Provider [phone] Allergies Allergen (clinical drug ingredient) Drug/Non Drug Allergy documented on EMR Reaction Allergy Type Onset Date Status sulfamethoxazole / trimethoprim Bactrim Unknown Drug Allergy Active nitrofurantoin, macrocrystals / nitrofurantoin, monohydrate Macrobid Unknown Drug Allergy Active ciprofloxacin Ciprofloxacin Unknown Drug Allergy Active Results Component Value Reference Range Notes VITAMIN D 25 OH Reviewed date:03/26/2024 03:59:05 PM Interpretation: Performing Lab: Notes/Report: [facility] , Vitamin D 57.5 20-<30 ng/mL Vit D insufficient 30-100 ng/mL Vit D sufficient >100 ng/mL Potential Toxicity <20 ng/mL Vit D deficient Performing Lab: see note - [facility] LB GLYCOHEMOGLOBIN A1C Reviewed date:06/10/2024 02:12:02 PM Interpretation: Performing Lab: Notes/Report: [facility] , Glycohemoglobin A1C 5.4 4.5-6.2 % ACTION SUGGESTED > 7.0 ADA RECOMMENDED LIMIT 4.0 - 6.0 ADA THERAPEUTIC TARGET < 7.0 Estimated Average Glucose 108 Performing Lab: see note - [facility] LB XR chest 2V Reviewed date:06/23/2024 08:27:58 PM Interpretation: Performing Lab: Notes/Report: Source Facility: [facility] [place] [address] [place] [address] XRay Report Signed Patient: YORDY YEBOAH MR#: [id number] : 1945 Acct:[id number] Age/Sex: 78 / F ADM Date: 06/23/24 Loc: ER Attending Dr: Ordering Physician: Federico Guillory Date of Service: 06/23/24 Procedure(s): XR chest 2V Accession Number(s): [id number] cc: Gisella Porter M.D.; Federico Guillory [address] [id number] Patient Name: YORDY YEBOAH MRN: [facility]:[id number] date: 1945 Sex: F Assigned Patient Location: ER Current Patient Location: ER Accession/Order Number: [id number] Exam Date: 06/23/2024 17:06 Report Date: 06/23/2024 17:53 At the request of: FEDERICO GUILLORY Procedure: XR chest 2V Exam: Radiographs: XR chest 2V Reason for exam: cough Comparison: None XR/XR chest 2V IMPRESSION: Minimal scarring in the right lower lung. Chest is otherwise unremarkable. Electronically authenticated by: ARACELI RUANO Date: 06/23/2024 17:53 Dictated By: Araceli Ruano M.D. Signed By: 06/23/241755 DD/ 52 TD/TT: Simulation Specialist: [place] [address] XRay Report Signed Patient: YORDY YEBOAH MR#: [id number] : 1945 Acct:[id number] Age/Sex: 78 / F ADM Date: 06/23/24 Loc: ER Attending Dr: Ordering Physician: Federico Guillory Date of Service: 06/23/24 Procedure(s): XR chest 2V Accession Number(s): [id number] cc: Gisella Porter M.D. ; Federico Guillory [address] [id number] Patient Name: YORDY YEBOAH MRN: [id number] date: 1945 Sex: F Assigned Patient Location: ER Current Patient Loca tion: ER Accession/Order Numb er: [id number] Exam Date: 17:06 Report Date: 06/23/2024 17:53 [...] M.D. Signed By: 06/23/241755 DD/ 52 TD/TT: Simulation Specialist: FREE T3 Reviewed date:2024 07:04:23 PM Interpretation: Performing Lab: Notes/Report: [facility] , Free T3 4.06 2.18-3.98 pg/mL Performing Lab: see note ML - [facility] LB T4 Reviewed date:2024 07:04:23 PM Interpretation: Performing Lab: Notes/Report: [facility] , T4 Thyroxine 9.00 4.80-13.90 ug/dL Performing Lab: see note ML - [facility] LB TSH Reviewed date:2024 07:04:23 PM Interpretation: Performing Lab: Notes/Report: [facility] , Thyroid Stimulating Hormone 0.404 0.358-3.740 uIU/mL Performing Lab: see note ML - [facility] LB MR head/brain wo/w con Reviewed date:01/29/2025 05:19:37 PM Interpretation: Performing Lab: Notes/Report: Source Facility: [facility] [place] [address] [place] [address] Magnetic Resonance Report Signed Patient: YORDY YEBOAH MR#: [id number] : 1945 Acct:[id number] Age/Sex: 79 / F ADM Date: 01/29/25 Loc: LAB Attending Dr: Silva Espinoza M.D. Ordering Physician: Silva Espinoza M.D. Date of Service: 01/29/25 Procedure(s): MR head/brain wo/w con Accession Number(s): [id number] cc: Gisella Porter M.D.; Silva Espinoza M.D. [place] [address] Patient Name: YORDY YEBOAH MRN: [facility]:[id number] date: 1945 Sex: F Assigned Patient Location: LAB Current Patient Location: LAB Accession/Order Number: [id number] Exam Date: 01/29/2025 15:50 Report Date: 01/29/2025 15:58 At the request of: SILVA ESPINOZA MD Procedure: MR head/brain wo/w con MRI [...] Knight M.D. 01/29/2025 3:58 PM Dictation Location: [place] [address] Electronically authenticated by: [id number] Y Date: 01/29/2025 15:58 Dictated By: Raudel Knight M.D. Signed By: 01/29/25 1601 DD/ 1558 TD/TT: Simulation Specialist: [place] [address] Magnetic Resonance Report Signed Patient: YORDY YEBOAH MR#: [id number] : 1945 Acct:[id number] Age/Sex: 79 / F ADM Date: 01/29/25 Loc: LAB Attending Dr: Silva Espinoza M.D. Ordering Physician: Silva Espinoza M.D. Date of Service: 01/29/25 Procedure(s): MR head/brain wo/w con Accession Number(s): [id number] cc: Gisella Porter M.D. ; Silva Espinoza M.D. [place] [address] Patient Name: YORDY YEBOAH MRN: [id number] date: 1945 Sex: F Assigned Patient Location: LAB Current Patient Loca tion: LAB Accession/Order Numb er: [id number] Exam Date: 01/29/2025 15:50 Report Date: 01/29/2025 15:58 At the request of: SILVA ESPINOZA MD Procedure: MR head/b rain wo/w con MRI the brain and IA Cs performed without with contrast INDICATION: Idiopath ic severe loss left ear, restricted right COMPARISON: None FINDINGS: No restricted diffus ion. Age-appropriate prominence of ventricles and sulci. Minimal periventricu lar and subcortical T2 prolongation identified suggest of chronic small vessel ischemic disease. No shift midline structure. Basal cisterns are patent. Major intracranial arterial vascular flow was preserved. Intrinsic T2 signal within the inner ear structures is preserved. Within the left ICA, there is a 4.4 x 3.0 mm acoustic neuroma. No additional foci of abnormal retrocochle ar enhancement identified. No abnormal enhancem ent identified elsewhere brain. Mild ethmoid sinus thickening. Cataract surgery. M R/MR head/brain wo/w con IMPRESSION: Left IAC acoustic ne uroma 4.4 x by 3 mm in size. Minimal chronic smal l vessel changes and central involutional changes without evidence of acute traumatic process by MRI. Impression dictated by: Raudel Knight M.D. 01/29/2025 3:58 PM Dictation Location: [place] [address] Electronically authenticated by: [id number] Y Date: 01/29/2025 15:58 Dictated By: Kristin Knight M.D. Signed By: 01/29/25 1601 DD/ 1558 TD/TT: Simulation Specialist: XR foot LT min 3V Reviewed date:09/04/2024 06:26:48 PM Interpretation: Performing Lab: Notes/Report: Source Facility: [place] [address] XRay Report Signed Patient: YORDY YEBOAH MR#: [id number] : 1945 Acct:[id number] Age/Sex: 79 / F ADM Date: 09/04/24 Loc: US Attending Dr: Gisella Porter M.D. Ordering Physician: Gisella Porter M.D. Date of Service: 09/04/24 Procedure(s): XR foot LT min 3V Accession Number(s): [id number] cc: Gisella Porter M.D. [place] [address] Patient Name: YORDY YEBOAH MRN: [facility]:[id number] date: 1945 Sex: F Assigned Patient Location: Current Patient Location: Accession/Order Number: [id number] Exam Date: 09/04/2024 17:57 Report Date: 09/04/2024 [...] Lg Lua M.D.09/04/2024 5:59 PM Dictation Location: [place] [address] Electronically authenticated by: [id number] Y Date: 09/04/2024 17:59 Dictated By: Lg Lua D.O. Signed By: 09/04/241801 DD/ 58 TD/TT: Simulation Specialist: [place] [address] XRay Report Signed Patient: YORDY YEBOAH MR#: [id number] : 1945 Acct:[id number] Age/Sex: 79 / F ADM Date: 09/04/24 Loc: US Attending Dr: Pepe Porter M.D. Ordering Physician: Gisella Porter M.D. Date of Service: 09/04/24 Procedure(s): XR don t LT min 3V Accession Number(s): [id number] cc: Gisella Porter M.D. [place] [phone] Patient Name: YORDY YEBOAH MRN: [id number] date: 1945 Sex: F Assigned Patient Location: US Current Patient Loca tion: US Accession/Order Numb er: [id number] Exam Date: 09/04/2024 17:57 Report Date: 09/04/2024 [...] Lg Lua M.D.09/04/2024 5:59 PM Dictation Location: [place] [address] Electronically authenticated by: [id number] Y Date: 09/04/2024 17:59 Dictated By: Isaiah Lua D.O. 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 Signed By: 06/25/24 1454 DD/ 1716 TD/TT: Simulation Specialist: SARS-CoV-2 Ag* Reviewed date:06/23/2024 08:27:58 PM Interpretation: Performing Lab: Notes/Report: [facility] , SARS-CoV-2 Ag NEGATIVE NEGATIVE This test [...] Performing Lab: see note ML - [facility] LB Troponin I High Sensitivity Reviewed date:06/23/2024 08:27:58 PM Interpretation: Performing Lab: Notes/Report: [facility] , Troponin I High Sensitivity 18.6 4.0-51.3 pg/mL 99TH PERCENTILE = 51.4 PG/ML UNIVERSAL DEFINITION OF MYOCARDIAL INFARCTION. THE UPPER USED IN ISOLATION BUT SHOULD BE INTERPRETED IN CONJUNCTION HAS BEEN CONFIRMED THE DECISION THRESHOLD FOR MO WITH OTHER DIAGNOSTIC AND CLINICAL INFORMATION. DIAGNOSIS. CUT-OFF POINTS HAVE BEEN ESTABLISHED BASED ON THE FOURTH REFERENCE LIMIT (URL) OF TROPONIN, DEFINED THE 99TH PERCENTILE OF cTnI DISTRIBUTION IN A REFERENCE POPULATION, NOTE: HIGH-SENSITIVITY TROPONIN ASSAY IS NOT INTENDED TO BE Performing Lab: see note ML - [facility] LB Manual Differential Reviewed date:06/23/2024 08:27:58 PM Interpretation: Performing Lab: Notes/Report: [facility] , Segmented Neutrophils % Manual 66.0 43.0-75.0 [...] Performing Lab: see note ML - [facility] LB RSV Reviewed date:06/23/2024 08:27:58 PM Interpretation: Performing Lab: Notes/Report: [facility] , Respiratory Syncytial Virus Not Detected NOT DETECTE Performing Lab: see note ML - [facility] LB PROF 14(COMP METB) Reviewed date:06/23/2024 08:27:58 PM Interpretation: Performing Lab: Notes/Report: [facility] , Sodium 135 136-145 mmol/L Potassium 3.3 [...] 0.7 Performing Lab: see note ML - [facility] LB LACTATE or LACTIC ACID Reviewed date:06/23/2024 08:27:58 PM Interpretation: Performing Lab: Notes/Report: [facility] , Lactate/Lactic Acid 1.2 0.4-2.0 mmol/L Performing Lab: see note ML - [facility] LB INFLUENZA A AND B AG Reviewed date:06/23/2024 08:27:58 PM Interpretation: Performing Lab: Notes/Report: [facility] , Influenza Virus A Antigen Positive NOTE: [...] B Performing Lab: see note ML - [facility] LB CBC AUTO DIFF Reviewed date:06/23/2024 08:27:58 PM Interpretation: Performing Lab: Notes/Report: [facility] , White Blood Count 6.3 4.0-11.0 10 [...] fL Performing Lab: see note ML - [facility] LB BNP Reviewed date:06/23/2024 08:27:58 PM Interpretation: Performing Lab: Notes/Report: [facility] , NT Pro B Type Natriuretic Pept 891.0 <=1800.0 pg/mL Performing Lab: see note ML - [facility] LB TSH Reviewed date:06/10/2024 02:12:02 PM Interpretation: Performing Lab: Notes/Report: [facility] , Thyroid Stimulating Hormone 1.443 0.358-3.740 uIU/mL Performing Lab: see note ML - [facility] LB T4 Reviewed date:06/10/2024 02:12:02 PM Interpretation: Performing Lab: Notes/Report: [facility] , T4 Thyroxine 8.80 4.80-13.90 ug/dL Performing Lab: see note ML - [facility] LB PROF 14(COMP METB) Reviewed date:06/10/2024 02:12:02 PM Interpretation: Performing Lab: Notes/Report: [facility] , Sodium 138 136-145 mmol/L Potassium 3.9 [...] 0.6 Performing Lab: see note ML - [facility] LB LIPID PROFILE Reviewed date:06/10/2024 02:12:02 PM Interpretation: Performing Lab: Notes/Report: [facility] , Triglycerides 95 <=150 mg/dL Cholesterol 173 [...] >11.0 HIGH RISK Performing Lab: see note ML - [facility] LB IRON Reviewed date:06/10/2024 02:12:02 PM Interpretation: Performing Lab: Notes/Report: [facility] , Iron 36.0 50.0-170.0 ug/dL Performing Lab: see note ML - [facility] LB FREE T3 Reviewed date:06/10/2024 02:12:02 PM Interpretation: Performing Lab: Notes/Report: [facility] , Free T3 1.62 2.18-3.98 pg/mL Performing Lab: see note ML - [facility] LB CBC AUTO DIFF Reviewed date:06/10/2024 02:12:02 PM Interpretation: Performing Lab: Notes/Report: [facility] , White Blood Count 6.1 4.0-11.0 10 [...] Performing Lab: see note ML - [facility] LB XR wrist RT 2V Reviewed date:04/13/2024 11:12:40 AM Interpretation: Performing Lab: Notes/Report: Source Facility: [place] [address] XRay Report Signed Patient: YORDY YEBOAH MR#: [id number] : 1945 Acct:[id number] Age/Sex: 78 / F ADM Date: 04/13/24 Loc: ER Attending Dr: Ordering Physician: Pita Putnam Date of Service: 04/13/24 Procedure(s): XR wrist RT 2V Accession Number(s): [id number] cc: Gisella Porter M.D.; Pita Putnam [place] [id number] Patient Name: YORDY YEBOAH MRN: [id number] date: 1945 Sex: F Assigned Patient Location: ER Current Patient Location: ED.MAIN Accession/Order Number: [id number] Exam Date: 04/13/2024 09:54 Report Date: 04/13/2024 [...] MCP joint at the edge of the qkxew-iy-oukf. There is severe narrowing of the space [...] Cornelius M.D. Signed By: 04/13/24 1046 DD/ 104 TD/TT: Simulation Specialist: [address] [address] XRay Report Signed Patient: YORDY YEBOAH MR#: [id number] : 1945 Acct:[id number] Age/Sex: 78 / F ADM Date: 04/13/24 Loc: ER Attending Dr: Ordering Physician: Pita Putnam Date of Service: 04/13/24 Procedure(s): XR wri st RT 2V Accession Number(s): [id number] cc: Gisella Porter M.D. ; Pita Putnam [address] [address] Patient Name: YORDY YEBOAH MRN: [id number] date: 1945 Sex: F Assigned Patient Location: ER Current Patient Loca tion: ED.MAIN Accession/Order Numb er: [id number] Exam Date: 09:54 Report Date: 04/13/2024 10:43 [...] joint at the edg e of the jnvln-lv-fwma. There is severe narrowing of the space [...] Cornelius M.D. Signed By: 04/13/24 1046 DD/ TD/TT: Simulation Specialist: ECG 12 lead Reviewed date:04/14/2024 04:06:29 PM Interpretation: Performing Lab: Notes/Report: Source Facility: [facility] [place] [address] [place] [address] Electrocardiograph Report Signed Patient: YORDY YEBOAH MR#: [id number] : 1945 Acct:[id number] Age/Sex: 78 / F ADM Date: 04/13/24 Loc: ER Attending Dr: Ordering Physician: Pita Putnam Date of Service: 04/13/24 Procedure(s): ECG 12 lead Accession Number(s): [id number] cc: [facility] Test Date: 2024-04-13 Pat Name: YORDY YEBOAH Department: Room: - 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 Signed By: 04/14/241240 DD/ 1051 TD/TT: Simulation Specialist: PROF Santo(COMP METB) Reviewed date:03/26/2024 03:59:05 PM Interpretation: Performing Lab: Notes/Report: [facility] , Sodium 138 136-145 mmol/L Potassium 3.9 [...] 0.7 Performing Lab: see note ML - [facility] LB CBC AUTO DIFF Reviewed date:03/26/2024 03:59:05 PM Interpretation: Performing Lab: Notes/Report: [facility] , White Blood Count 4.9 4.0-11.0 10 [...] 3/uL Performing Lab: see note ML - [facility] LB TSH Reviewed date:03/05/2024 10:25:12 PM Interpretation: Performing Lab: Notes/Report: [facility] , Thyroid Stimulating Hormone 0.061 0.358-3.740 uIU/mL Performing Lab: see note ML - [facility] LB FREE T4 Reviewed date:03/05/2024 10:25:12 PM Interpretation: Performing Lab: Notes/Report: [facility] , Free T4 1.66 0.76-1.46 ng/dL Performing Lab: see note ML - [facility] LB PROF 14(COMP METB) Reviewed date:03/05/2024 10:25:12 PM Interpretation: Performing Lab: Notes/Report: [facility] , Sodium 141 136-145 mmol/L Potassium 4.2 [...] 0.8 Performing Lab: see note ML - [facility] LB CBC AUTO DIFF Reviewed date:03/05/2024 10:25:12 PM Interpretation: Performing Lab: Notes/Report: [facility] , White Blood Count 4.7 4.0-11.0 10 [...] 3/uL Performing Lab: see note ML - [facility] LB CREATININE Reviewed date:01/29/2025 12:30:22 PM Interpretation: Performing Lab: Notes/Report: [facility] , Creatinine 0.73 0.55-1.02 mg/dL Estimated GFR ( Danya >60 >=60 mL/min/1.73m 2 Estimated GFR (Non- Miguelina >60 >=60 mL/min/1.73m 2 Performing Lab: see note ML - [facility] LB Reason For Referral Reason minimal bone conduct ion, persistent MICHAEL Diagnosis 1 Hearing loss (H91.90 ) Referral Organization [facility] Medicine Referring Provider First Name Vishnu Referring Provider Last Name German Referring Provider Speciality Family [facility] joanna Referred Provider Silva Espinoza Referred Provider Specialty Otolaryngolo gy Referral Priority [...] Administration Date Status Comme nts Flu, Fluad (9414-5436) (16424) 65 yrs+, single-dose syringe IM Intramuscular 06/07/2023 [...] Risk Notes Problem Disorder of thyroid gland (07597161) Disorder of thyroid, unspecified (E07.9) Active confirmed Problem Chronic sinusitis (05970301) Chronic sinusitis, unspecified (J32.9) Active confirmed Problem 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 Problem Edema (41740682) Edema (R60.9) Active confirmed Problem Anemia (156413499) Anemia (D64.9) Active confir med Problem Insomnia (731751577) Insomnia (G47.00) Active confirmed Problem Arthralgia (76591988) Arthralgia (M25.50) Active confirmed Problem Impacted cerumen (90429242) Cerumen impaction (H61.20) Active confirmed Problem Hearing loss (20297811) Hearing loss (H91.90) Active confirmed Problem Crohns disease (44257610) Crohns disease (K50.90) Active confirmed Problem Hearing loss (95002786) 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) Active confirmed Problem Acoustic neuroma (533851842) Acoustic neuroma (D33.3) Active confirmed Problem Influenza A virus (737703216) Influenza A (J10.1) Active confirmed Problem Acute sinusitis (84053078) Acute sinusitis treated with antibiotics in the past 60 days (J01.90) Active confirmed Problem Irritable bowel syndrome (11166674) IBS (irritable colon syndrome) (K58.9) Active confirmed Problem 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 confirmed Problem Pure hypercholesterolemia (330000357) Elevated cholesterol (E78.00) Active confirmed Problem Vestibular schwannom a (654525193) Vestibular schwannoma (D33.3) Active confirmed Problem Hypothyroidism (06710891) Acquired underactive thyroid (E03.9) Active confirmed Problem 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 [address] [place] [address] 03/05/2024 Vishnu rosa [facility] [address] [place] [address] 03/08/2024 Vishnu Porter [facility] [address] [place] [address] 04/13/2024 Vishnu rosa [facility] [address] [place] [address] 10/16/2024 Vishnu rosa [facility] [address] [place] [address] 12/12/2024 Vishnu Porter [facility] [address] [place] [address] 12/24/2024 Vishnu Porter [facility] [address] [place] [address] 01/29/2025 Vishnu [facility] [address] [place] [address] 02/18/2025 Vishnu rosa [facility] [address] [place] [address] 06/06/2024 Vishnu Porter [facility] [address] [place] [address] 06/10/2024 Vishnu Porter [facility] [address] [place] [address] 06/10/2024 Vishnu Porter Hypothyroid E03.9 [facility] [address] [place] [address] 06/14/2024 Vishnu Porter [facility] [address] [place] [address] 2024 Vishnu Porter [facility] [facility] [address] [place] [address] 09/04/2024 Vishnu Porter [facility] [address] [place] [address] 10/16/2024 Vishnu Porter Acute non-recurrent sinusitis, unspecified location J01.90 and Nasal congestion R09.[address] [address] 03/05/2024 Vishnu Hoy Anemia D64.9 ; IBS (irritable colon syndrome) K58.9 and Disorder of thyroid, unspecified E07.[address] [address] 04/15/2024 Vishnu Hoy Arthralgia M25.[address] [address] 06/10/2024 Vishnu Hoy Disorder of thyroid, unspecified E07.9 ; Anemia D64.9 ; IBS (irritable colon syndrome) K58.9 ; Insomnia G47.00 and Impacted cerumen of right ear H61.[address] [address] 06/25/2024 Vishnu Hoy Acute bronchitis, unspecified organism J20.[address] [address] 06/27/2024 Vishnu Hoy Influenza A J10.[address] [address] 07/03/2024 Vishnu Hoy Acute sinusitis jolly jeanette with antibiotics in the past 60 days J01.[address] [address] 08/01/2024 Vishnu Hoy Edema R60.[address] [address] 08/19/2024 Vishnu Hoy Cerumen impaction H61.20 ; Serous otitis media H65.90 and Bilateral impacted cerumen H61.[address] [address] 10/30/2024 Vishnu Hoy Hearing loss H91.90 and Hearing loss in left ear H91.92 Assessments Encounter Date Diagnosis (ICD Code) Assessment Notes Treatment Notes Treatment Clinical Notes Section Notes 04/15/2024 Arthralgia (ICD-10 - M25.50) stopped nsaids for her arthitis - and thay may contribute consider celebrex - or prednisone 5 mg po Q day 06/10/2024 Disorder of thyroid, unspecified (ICD-10 - E07.9) 06/10/2024 Anemia (ICD-10 - D64.9) 06/25/2024 Acute bronchitis, unspecified organism (ICD-10 - J20.9) Rest and drink more liquids, especially water. You may use a humidifier or vaporizer to help keep the drainage moist. Ffhx-aco-oauxlkn Nasal Saline may help the stuffy and runny nose. Use Ibuprofen and or Tylenol as needed for fever, chills, body aches or pain. Children 5 years old should not be given wxkm-rxb-swgzeso cough and cold medications such as guaifenesin and dextromethorphan. If you're over age 5, you may try jocl-jci-cehwpoe cold medications such as guaifenesin and dextromethorphan, [...] vaporizer to help keep the drainage moist. Uvcy-pfy-loegsow Nasal Saline may help the stuffy and runny nose. Use Ibuprofen and or Tylenol as needed for fever, chills, body aches or pain. Children 5 years old should not be given otvv-mmt-vegaauj cough and cold medications such as guaifenesin and dextromethorphan. If you're over age 5, you may try cruw-vak-rgisfuk cold medications such as guaifenesin and dextromethorphan, [...] End Date [place]IC[place] [address] [place] [address] [id number] Belén Yordy billingsley Self - patient is the insured [facility] [address] [place] [address] [id number] Belén Yordy billingsley Self - patient is the insured Medications [...] underactive thyroid E03.9 Surgical History Surgery Date(Month/Year) Cataract Extraction Total Hip Arthroplasty- Right Right Total Knee Parathyroidectomy Total Knee Arthroplasty- Left flexible sigmoidoscopy with biopsy - dr muñoz 06/21/2024
--- OUTSIDE RECORDS SUMMARY | 2025-02-26 09:59 | XMS_ITS | Encounter Summary ---
Author Organization [facility] Address [address] [place] [address] Care Team Providers Care Director Of Distribution Name Role Phone Eric Porter MD Primary Care Provider [phone] Encounter Details Date Type Department Care Team (Latest Contact Info) Description 02/12/2025 Travel Social History Tobacco Use Types Packs/Day Years [...] on filedocumented in this encounter Care Teams Director Of Distribution Relationship Specialty Start Date End Date Eric Porter MD [address] [place] [address] PCP - General Family Medicine 10/30/24 documented as of this encounter
--- OUTSIDE RECORDS SUMMARY | 2025-02-26 11:25 | XMS_ITS | CCD ---
Author Organization [facility] Care Team Providers Care Manager Company Name Role Phone Manoj Forbes Unavailable Sydney Oswald II Unavailable MD Gisella Chamorro Primary Care Provider [phone] MD Sydney Oswald II Attending Provider MD Gisella Chamorro Primary Care Provider [phone] MD Sydney Oswald II Attending Provider NICKO, DR HOOVER Admitting Unavailable MISC, DR HOOVER Attending Unavailable HOY ., DR OBANDO Primary Care Unavailable MISC, DR HOOVER Consulting Unavailable HOY ., DR OBANDO Admitting Unavailable HOY ., DR OBANDO Attending Unavailable HOY ., DR OBANDO Primary Care Unavailable HOY ., DR OBANDO Consulting Unavailable [facility], DR VIDYA Strong Consulting Unavailable HOY ., DR OBANDO Admitting Unavailable HOY ., DR OBANDO Attending Unavailable HOY ., DR OBANDO Primary Care Unavailable HOY ., DR OBANDO Consulting Unavailable HOY ., DR OBANDO Admitting Unavailable HOY ., DR OBANDO Attending Unavailable HOY ., DR OBANDO Primary Care Unavailable HOY ., DR OBANDO Consulting Unavailable JEFFERSON, DR FUNMILAYO Ramirez Consulting Unavailable TYRONE, DR LONDON Attending Unavailable MISC, DR HOOVER Admitting Unavailable MISC, DR HOOVER Primary Care Unavailable MISC, DR HOOVER Consulting Unavailable SYDNEY OSWALD Admitting Unavailable SYDNEY OSWALD Attending Unavailable HOY ., DR OBANDO Primary Care Unavailable SYDNEY OSWALD Consulting Unavailable MISC, DR HOOVER Admitting Unavailable MISC, DR HOOVER Attending Unavailable PEDRO PABLO ., DR OBANDO Primary Care Unavailable MISC, DR HOOVER Consulting Unavailable MD Gisella Chamorro Primary Care Provider [phone] MD Manoj Forbes Attending Provider [phone] GeovannaDaryl avelar Primary Care Provider UnavailMD Ivette Treadwell Attending Provider MD Gisella Chamorro Primary Care Provider [phone] MD Sydney Oswald II Attending Provider [phone] Ivette Taylor Unavailable Camas, Daryl Primary Care Provider Unavailabl e Camas, Daryl Primary Care Provider Unavailabl e Geovanna, Daryl Primary Care Provider Unavailabl e Gisella Chamorro MD Primary Care Provider [phone] FUNMILAYO ODELL Attending Unavailable FUNMILAYO ODELL Admitting Unavailable FUNMILAYO ODELL Referring Unavailable ZAIDA HERNANDEZ Referring Unavailable MD Gisella Chamorro Primary Care Provider [phone] MD Manoj Forbes Attending Provider [phone] Gisella Chamorro MD Primary Care Provider [phone] Manoj Forbes MD Attending Provider [employer]ET[employer]GER-[employer], Medina L Attending Provider Gisella Chamorro MD Primary Care Provider [phone] Lita Hansen MD Attending Provider Lita Hansen Admitting Unavailable Lita Hansen Attending Unavailable Gisella Chamorro Primary Care Unavailable Gisella Chamorro Primary Care Unavailable Manoj Forbes Admitting Unavailable Manoj Forbes Attending Unavailable Bertoy Gisella M Primary Care Unavailable Obermeyer, Medina L Admitting Unavailable Obermeyer, Medina L Attending Unavailable Vishnu Chamorrolas M Primary Care Unavailable Manoj Forbes Admitting Unavailable Manoj Forbes Attending Unavailable FUNMILAYO ODELL Attending Unavailable MANOJ FORBES Referring Unavailable GISELLA CHAMORRO Primary Care Unavailable FUNMILAYO ODELL Attending Unavailable MANOJ FORBES Referring Unavailable Gisella Chamorro MD Primary Care Provider [phone] Gisella Chamorro MD Primary Care Provider [phone] NORA SCHROEDER Attending Unavailable CLIFFORD ESPINOZA Attending Unavailable GISELLA CHAMORRO Referring Unavailable CLIFFORD ESPINOZA Attending Unavailable WILLIAM BARKLEY Attending Unavailable PATEL WYLIE Referring Unavailable GISELLA CHAMORRO Primary Care Unavailable Allergies Allergy Classification Reported Allergen(s) Allergy Type Date of Onset Reaction(s) Facility (20 sources) Ciprofloxacin; Translations: [CIPROFLOXACIN] Drug Allergy 05-31-20 13 Rash, Unknown [facility] (20 sources) NITROFURANTOIN, MACROCRYSTALS / Nitrofurantoin, Monohydrate Drug Allergy 10-28-19 Other: See Comments, GI Upset [facility] (20 sources) Sulfamethoxazole / Trimethoprim Drug Allergy 05-31-20 13 Other: See Comments, Rash [facility] (3 sources) Ciprofloxacin; Translations: [Cipro] Drug Allergy 05-31-20 13 Unknown [facility] (3 sources) Sulfamethoxazole / Trimethoprim; Translations: [Bactrim] Drug Allergy 05-31-20 13 Unknown [facility] (20 sources) Nitrofurantoin; Translations: [nitrofurantoin] Drug Allergy 04-29-20 21 Rash, Rash, vomiting,rash [facility] (11 sources) Sulfamethoxazole; Translations: [sulfamethoxazole] Drug Allergy 04-29-20 21 Rash, Rash, vomiting, rash [facility] (11 sources) Trimethoprim; Translations: [trimethoprim] Drug Allergy 04-29-20 21 Rash, Rash, vomiting, rash [facility] (1 source) Nitrofurantoin Drug Allergy 05-31-20 13 [facility] Rep[facility] (2 sources) Sulfamethoxazole / Trimethoprim; Translations: [SULFAMETHOXAZOLE-T RIMETHOPRIM] Drug Allergy 05-31-20 13 [facility] Repository (2 sources) NITROFURANTOIN MONOHYD/M-CRYST; Translations: [NITROFURANTOIN MONOHYD/M-CRYST] Propensity to adverse reactions to drug (disorder) 10-28-19 [facility] Repository (1 source) Ciprofloxacin Drug Allergy 08-21-[address] [facility] Repository (1 source) ALLERGIES NOT ON FILE; Translations: [ALLERGIES NOT ON FILE] Propensity to adverse reactions (disorder) [facility] Medications Current Medications Medication Drug Class(es) Dates [...] tablet (20 sources) Tricyclic Antidepressant Start: 09-21-2022 amitriptyline (Elavil) 50 MG tablet 07/29/2024 Active Start: 04-29-2021 End: 09-21-2022 take 2 tablets by mouth once daily at bedtime Amitriptyline 25 mg tablet Discontinued 50 MG PO Daily at bedtime April 29, 2021 12:00am September 21, 2022 10:01am Start: 04-29-2021 End: 09-21-2022 take 50 mg [...] Nov, Active cholecalciferol 0.125 mg oral tablet (16 sources) Vitamin D Start: take 1 tablet by mouth once daily cholecalciferol (VITAMIN D3) 5,000 unit tab Take 5,000 Units by mouth once daily. 04/29/2021 Active Start: 04-29-2021 End: 04-23-2024 take 1 tablet by mouth once daily Cholecalciferol (Vitamin D3) (Vitamin D3) 125 mcg (5,000 unit) Tablet Discontinued 125 MCG PO Daily April 29, 2021 12:00am April 23, 2024 11:01am Comment on above: Take 5,000 Units by mouth once daily. dicyclomine hydrochloride 20 mg oral tablet (20 sources) Anticholinergic Start: 12-04-2024 dicyclomine (Bentyl) 20 MG tablet 12/04/2024 Active Start: 01-12-2015 End: 02-20-2024 take 1 tablet [...] Nonsteroidal Anti-inflammatory Drug Start: 04-29-2021 End: 04-23-2024 Etodolac 500 mg tablet Etodolac Active 500 [...] for 30 day(s) Jan, Active levothyroxine sodium 0.088 mg oral tablet (20 sources) l-Thyroxi ne Start: 12-28-2024 take 1 tablet by mouth once daily levothyroxine (Synthroid, Levoxyl) 88 MCG tablet TAKE 1 TABLET BY MOUTH ONCE DAILY FOR 30 DAYS 12/28/2024 Active Start: 04-29-2021 take 1 tablet by kathie th once daily levothyroxine (SYNTHROID) 112 mcg tablet Take 112 mcg by mouth once daily. 04/29/2021 Active take 1 tablet by kathie th once daily in the morning Levothyroxine Sodium 112 MCG 1 tablet on an empty stomach in the morning Orally Once a day for 30 day(s) Active Comment on above: Take 112 mcg by mout h once daily. liothyronine sodium 0.005 mg oral tablet (9 sources) l-Triiodothyronine Start: 06-11-2024 liothyronine (Cytomel) 5 MCG tablet 1 (one) time each day at the same time 06/11/2024 Active mesalamine 1200 mg delayed release oral tablet (18 sources) Aminosalicylate Start: 11-26-2024 mesalamine (Lialda) 1.2 g EC tablet 11/26/2024 Active Start: 06-21-2024 End: 11-26-2024 take 4 tablets by mouth once daily Mesalamine (Lialda) 1.2 gram tablet,delayed release (DR/EC) Active 4.8 GM PO Daily 360 90 November 26, 2024 10:02am rosuvastatin calcium 5 mg oral tablet (20 sources) HMG-CoA Reductase Inhibitor Start: 12-04-2024 rosuvastatin (Cresto r) 5 MG tablet 12/04/2024 Active Start: 04-29-2021 End: 09-21-2023 take 1 tablet by mouth once daily rosuvastatin (CRESTOR) 5 mg tablet Take 5 mg by mouth once daily. 08/23/2022 Active Comment on above: Take 5 mg by mouth o nce daily. simvastatin 5 mg oral tablet (5 sources) HMG-CoA Reductase Inhibitor Start: take 1 tablet by mouth once daily Simvastatin 5 mg tablet Active 5 MG PO Daily September 21, 2023 12:00am traMADol hydrochloride 50 mg oral tablet (20 sources) Opioid Agonist Start: 4 traMADol (ULTRAM) 50 mg tablet as needed for pain. 12/12/2023 Active Start: 12-01-2021 take 1 tablet by kathie every six hours as needed for pain traMADol HCl 50 MG 1 tablet as needed for pain Orally every 6 hrs for 10 days Dec, Not-Taking Start: 04-29-2021 End: 09-21-2022 take 1 tablet by mouth twice daily as needed for pain Tramadol 50 mg tablet Discontinued 50 MG PO Twice daily as needed for Pain April 29, 2021 12:00am September 21, 2022 [...] omeprazole 20 mg delayed release oral capsule (20 sources) Proton Pump Inhibitor Start: 09-21-2023 End: 04-23-2024 Omeprazole 20 mg capsule,delayed release(DR/EC) Discontinued 20 MG PO Daily December 05, 2023 12:00am April 23, 2024 11:01am Take 1 capsule orally 30 minutes before morning meal. Start: 04-29-2021 End: 12-07-2021 take 1 capsule by mouth once daily Omeprazole 20 mg capsule,delayed release(DR/EC) Discontinued 20 MG PO Daily April 29, [...] UPON DISCHARGE DOS: 12/21/2021 08 Nov, 2021 Not-Taking polyethylene glycol 3350 54387 mg powder for oral solution (8 sources) Osmotic Laxative Start: 12-01-2021 MiraLax 17 GM 1 packet mixed with 8 ounces of fluid Orally Once a day for 7 days MED TO BED UPON DISCHARGE DOS: 12/21/2021 Nov, Not-Taking Sod Picosulf-Mag Ox-Citric Ac (4 sources) Start: 04-23-2024 End: 05-30-2024 take 1 dose by mouth once daily Sod Picosulf-Mag Ox-Citric Ac (Clenpiq) 10 mg-3.5 gram- 12 gram/175 mL solution Discontinued 175 ML PO Daily 350 0 April 23, 2024 12:00am May 30, 2024 3:41pm Take first dose at 3pm evening before colonoscopy; second dose at 9 pm night before colonoscopy Start: 04-23-2024 End: 05-30-2024 take 1 dose [...] Classification Problem Date Documented Da te Episodic/Chronic Cataract (1 source) 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; Translations: [Other secondary cataract, left eye] 02-12-2025 Chronic Deficiency and other anemia (1 source) Anemia, unspecified; Translations: [ANEMIA UNSPECIFIED] Onset: 06-11-2022 Episodic Deficiency and other anemia (3 sources) Iron deficiency anemia; Translations: [Iron deficiency anemia, unspecified] Episodic Diabetes mellitus without complication (1 source) Other abnormal glucose; Translations: [OTHER ABNORMAL GLUCOSE] Onset: 06-11-2022 Episodic Disorders of lipid metabolism (20 sources) Pure hypercholesterolemia, unspecified; Translations: [Hyperlipidemia, unspecified] Onset: 06-06-2022 Chronic Nutritional deficiencies (2 sources) Vitamin D deficiency, [...] Other half-way (current) drug therapy; Translations: [OTH [facility] CURRENT DRUG THERAPY] Onset: 11-10-2021 Resolved: 02-02-2022 Episodic Other aftercare (5 sources) custodial current use of non-steroidal anti-inflammatory drug; Translations: [custodial (current) use of non-steroidal anti-inflammatories (NSAID)] 09-21-2023 Episodic Other and unspecified benign neoplasm (6 sources) Acoustic neuroma; Translations: [Benign neoplasm of cranial nerves] Onset: 02-04-2025 02-04-2025 Chronic Other bone disease and musculoskeletal deformities (1 source) Juvenile osteochondrosis of pelvis; 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] Onset: 08-28-2022 Chronic Other congenital anomalies (4 sources) Congenital anomaly of inner ear; 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] Onset: 02-04-2025 02-04-2025 Chronic Other congenital anomalies (4 sources) Disorder of inner ear; 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] Onset: 02-04-2025 02-04-2025 Chronic Other connective tissue disease (14 sources) [...] left hand Episodic Other connective tissue disease (3 sources) Pelvic floor dysfunction; Translations: [Other specified disorders of muscle] 11-03-2023 Episodic Other connective tissue disease (1 source) Other specified disorders of muscle; Translations: [Pelvic floor dysfunction] Onset: 12-20-2024 Episodic Other ear and sense organ disorders (1 source) Asymmetrical sensorineural hearing loss; Translations: [Sensorineural hearing loss, bilateral] 01-08-2025 Chronic Other ear and sense organ disorders (1 source) Tinnitus of left ear; Translations: [Tinnitus, left ear] 01-08-2025 Episodic Other ear and sense organ disorders (1 source) Impaired auditory discrimination; Translations: [Other abnormal auditory perceptions, left ear] 01-08-2025 Episodic Other ear and sense organ disorders (2 sources) Sudden idiopathic hearing loss; Translations: [Sudden idiopathic hearing loss, left ear] 01-14-2025 Episodic Other gastrointestinal disorders (14 sources) Irritable bowel syndrome; Translations: [Irritable bowel syndrome without diarrhea] Chronic Other gastrointestinal disorders (5 sources) Irritable bowel syndrome without diarrhea; Translations: [IBS (irritable bowel syndrome) K58.9] Onset: 04-20-2021 Resolved: 04-20-2021 Chronic Other gastrointestinal disorders (15 sources) Irritable bowel syndrome with diarrhea; Translations: [Irritable bowel syndrome with diarrhea] Onset: 02-28-2024 02-28-2024 Chronic Other gastrointestinal disorders (1 source) Irritable bowel syndrome with diarrhea; Translations: [Irritable bowel syndrome with diarrhea] Onset: 02-28-2024 Chronic Other gastrointestinal disorders (5 sources) Irritable bowel syndrome characterized by constipation; Translations: [Irritable bowel syndrome with constipation] 12-05-2023 Chronic Other gastrointestinal disorders (2 sources) Irritable bowel syndrome with constipation; Translations: [Irritable bowel syndrome] Onset: 04-01-2024 08-21-2024 Chronic Other gastrointestinal disorders (1 source) Incontinence of feces; Translations: [Full incontinence of feces] 11-26-2024 Episodic Other gastrointestinal disorders (1 source) Full incontinence of feces; Translations: [Full incontinence of feces] 11-26-2024 Episodic Other nervous system disorders (15 sources) Bilateral peripheral neuropathy of lower limbs; Translations: [Unspecified mononeuropathy of bilateral lower limbs] Onset: 02-28-2024 02-28-2024 Chronic Other nervous system disorders (1 source) Unspecified mononeuropathy of bilateral lower limbs; Translations: [Neuropathy of both feet] Onset: 02-28-2024 Chronic Other screening for suspected conditions (not mental disorders or infectious disease) (19 sources) Patient encounter status; Translations: [Encounter for screening for malignant neoplasm of colon] Onset: 04-20-2021 Resolved: 04-20-2021 Episodic Other skin disorders (4 sources) Localized swelling, mass and lump, right upper limb; Translations: [LOC SWELL MASS LUMP RT UPPER LIMB] Onset: 07-06-2022 Episodic Regional enteritis and ulcerative colitis (11 sources) Crohn's disease; Translations: [Crohn's disease, unspecified, without complications] 04-23-2024 Chronic Thyroid disorders (17 sources) Hypothyroidism, unspecified; Translations: [Hypothyroidism] Onset: 06-11-2022 02-28-2024 Chronic Urinary tract infections (2 sources) Urinary tract infectious disease; Translations: [Urinary tract infection, site not specified] Onset: 02-28-2024 02-29-2024 Episodic Past or Other Problems Problem Classification Problem Date Documented Da te Episodic/Chronic Anal and rectal conditions (19 sources) Rectal prolapse; Translations: [Rectal prolapse] Onset: 4 02-28-2024 Episodic Cardiac dysrhythmias (16 sources) Tachycardia; Translations: [Tachycardia, unspecified] Onset: 4 02-28-2024 Episodic Gastrointestinal hemorrhage (20 sources) Gastrointestinal hemorrhage; Translations: [Hemorrhage of anus and rectum] Onset: 4 10-16-2023 Episodic Hemorrhoids (12 sources) Unspecified hemorrhoids; Translations: [Hemorrhoids] Onset: 4 Episodic Other connective tissue disease (1 source) Trochanteric bursitis, right hip Onset: 2 Resolved: 2 Episodic Residual codes; unclassified (1 source) Family history of malignant neoplasm of breast; Translations: [FAMILY HX MALIG NEOPLASM OF BREAST] Onset: 2 Episodic Results Test Name Value Interpretation Reference Range Facility MR TRANSFER OF OUTSIDE FILMS on 02-13-2025 MR TRANSFER OF OUTSIDE FILMS Outside images for comparison or treatment purposes, not interpreted by Radiologists. [facility] Study Interpretation of outs mariusz studyon 02-13-2025 Outside images for comparison or treatment purposes, not interpreted by Radiologists. IMAGING MRI HEAD/BRAIN WO/W CONTRon 01-29-2025 [place] [address] Magnetic Resonance Report Signed Patient: BILLIE YEBOAH MR#: [id number] : 1945 Acct:[id number] Age/Sex: 79 / F ADM Date: 01/29/25 Loc: LAB Attending Dr: Clifford Espinoza M.D. Ordering Physician: Clifford Espinoza M.D. Date of Service: 01/29/25 Procedure(s): MR head/brain wo/w con Accession Number(s): [id number] cc: Gisella Chamorro M.D.; Clifford Espinoza M.D. [address] [address] Patient Name: BILLIE YEBOAH MRN: [id number] date: 1945 Sex: F Assigned Patient Location: LAB Current Patient Location: LAB Accession/Order Number: [id number] Exam Date: 01/29/2025 15:50 Report Date: 01/29/2025 15:58 At the request of: CLIFFORD ESPINOZA MD Procedure: MR head/brain wo/w con [...] Knight M.D. 01/29/2025 3:58 PM Dictation Location: [place] [address] Electronically authenticated by: [id number] Y Date: 01/29/2025 15:58 Dictated By: Raudel Knight M.D. Signed By: 01/29/25 1601 DD/ 1558 TD/TT: Swat Team Member: [facility] Radiology, Radiologist, MD - 01/29/2025 [place] [address] Magnetic Resonance Report Signed Patient: BILLIE YEBOAH MR#: [id number] : 1945 Acct:[id number] Age/Sex: 79 / F ADM Date: 01/29/25 Loc: LAB Attending Dr: Clifford Espinoza M.D. Ordering Physician: Clifford Espinoza M.D. Date of Service: 01/29/25 Procedure(s): MR head/brain wo/w con Accession Number(s): [id number] cc: Gisella Chamorro M.D.; Clifford Espinoza M.D. The [address] [address] Patient Name: BILLIE YEBOAH MRN: [facility]:[id number] date: 1945 Sex: F Assigned Patient Location: LAB Current Patient Location: LAB Accession/Order Number: [id number] Exam Date: 01/29/2025 15:50 Report Date: 01/29/2025 15:58 At the request of: CLIFFORD ESPINOZA MD Procedure: MR head/brain wo/w con [...] Knight M.D. 01/29/2025 3:58 PM Dictation Location: [place] [address] Electronically authenticated by: [id number] Y Date: 01/29/2025 15:58 Dictated By: Raudel Knight M.D. Signed By: 01/29/25 1601 DD/ 1558 TD/TT: Swat Team Member: [facility] Radiology Study observation (narrative) [facility] MRI HEAD/BRAIN WO/W CONTROrd ered By: Radiologist Radiology on 01-29-2025 [facility] [employer] Work Phone: [facility] CREATININEon 01-29-2025 Creatinine [Mass/Vol] 0.73 mg/dL 0.55 - 1.02 mg/dL [facility] GFR/1.73 sq M.predicted CKD-EPI (S/P/Bld) [Vol rate/Area] >60 >=60 mL/min/1.73m 2 [facility] EGFR-NON AF BOLIVIAN >60 >=60 mL/min/1.73m 2 [facility] [employer] Auditory function testson Right Ear: Mild sensorineural hearing loss From 500 Hz - 1K Hz. Mild to severe sensorineural hearing loss above 3K hz Left Ear: Mild to severe sensorineural hearing loss [facility] ([facility]) ---- BILLIE YEBOAH ([id number]) 1945 F Date Time Provider Department 12/20/24 4:00 PM FUNMILAYO ODELL [facility] During your visit today, we recorded the following information about you: Temperature Pulse Blood pressure 97.5 degrees 90/minute 156/84 Funmilayo Odell MD 12/20/2024 4:21 PM Signed COLORECTAL SURGERY December 20, 2024 Billie Yeboah 79 year old This consult was requested by Dr. Forbes and my final recommendations will be communicated to the requesting health care provider by way of the shared medical record for internal providers or letter via the [employer] for external providers. Chief Complaint: rectal prolapse History of Present Illness: Billie Yeboah is a 79 year old female presents today for follow up evaluation of hemorrhoids and rectal prolapse. She was previously seen in office in 2023 for hemorrhoids. Crohn's disease - followed by Dr. Forbes Sigmoidoscopy 06/21/24 - Dr. Forbes Scan on 11/29/2024 1:32 PM by Laci Mancuso: [facility] - Flexible Sigmoidoscopy w Biopsy, 06/21/24 Pathology FINAL DIAGNOSIS A. Colon, ascending, biopsy: - Colonic mucosa with no pathologic diagnostic abnormality; negative for granulomas or dysplasia. B. Colon, sigmoid, biopsy: - Chronic minimally active colitis; negative for granulomas or dysplasia. C. Rectum, biopsy: - Chronic mildly active colitis; negative for granulomas or dysplasia. Sigmoidoscopy 09/21/22 - Dr. Forbes Retroflexed views: There is small hypervascular appearing internal hemorrhoids extending down below the dentate line, comprising an external component as well. Rectal bleeding has resolved. Feels much improved from mesalamine. Now issue is with fecal incontinence, leakage of small volume liquid stool 2-3 times/week. PAST MEDICAL HISTORY Diagnosis Date HLD (hyperlipidemia) Hypothyroidism IBS (irritable bowel syndrome) OA (osteoarthritis) of finger PAST SURGICAL HISTORY Procedure Laterality Date COLONOSCOPY SCREENING FOOT SURGERY HX Bilateral for neuroma's. unsure of year HYSTERECTOMY HX 1998 THYROID SURGERY HX 1968 partial thyroidectomy for nodule TOTAL HIP REPLACEMENT Right 2014 TOTAL KNEE REPLACEMENT Left 2006 TOTAL KNEE REPLACEMENT Right 2021 Current Outpatient Medications Medication Sig Dispense Refill Etodolac 500 mg tablet Etodolac Active 500 MG PO Twice daily April 29, 2021 12:00am traMADol (ULTRAM) 50 mg tablet as needed for pain. amitriptyline (ELAVIL) 50 mg tablet Take 50 [...] ALLERGIES Allergen Reactions Ciprofloxacin Rash, Unknown Nitrofurantoin Barber* Other: See Comments, GI Upset Sulfamethoxazole-Tr * Other: See Comments, Rash FAMILY HISTORY Problem Relation Age of Onset Alzheimer's Disease Mother Heart Father age 80's Social History Tobacco Use Smoking status: Never Smokeless tobacco: Never Substance Use Topics Alcohol use: Never Drug use: Never Physical Exam: BP 156/84 (BP Site: Right Arm, BP Position: Sitting, BP Cuff Size: Regular Adult) Pulse 90 Temp 36.4 ?C (97.5 ?F) SpO2 96% General Appearance: Well appearing, alert, in no acute distress, well-hydrated, well nourished. Anorectal: External exam reveals soft external hemorrhoids. Digital rectal exam reveals no gross blood or masses. Weakened tone and squeeze Legal Adviser present: Yes, Sarah Z The sensitive examination was discussed with the Patient or Patient's Authorized Tire Retreader. As applicable, any other physician, advance practice provider, medical student, or other health professional student that will be observing or involved in the sensitive examination for educational or training purposes was discussed with the Patient or Authorized Tire Retreader. The Patient or Authorized Tire Retreader has agreed to proceed with the sensitive examination. (Sensitive examination includes inspection and/or palpation of the breasts, pelvis, prostate and anorectal regions) Assessment Assessment and Plan: Billie Yeboah is a 79 year old female with fecal incontinence 2-3 times/week small volume liquid stool. Will attempt management with Metamucil/Imodium and pelvic floor physical therapy. If things persist in 2 months she will return to see me and we will discuss sacral nerve stimulation. Patient and family voiced understanding and agreement with plan Medical Decision Making: Data Reviewed: Tests AND Documents Reviewed/ordered: Review of prior notes from myself Review of fallon (more content not included)... Normal [facility] Alanine aminotransferase [En zymatic activity/volume] in Serum or PlasmaOrdered By: Lita Hansen on 10-22-2024 ALT [Catalytic activity/Vol] Alanine aminotransferase [Enzymatic activity/volume] in Serum or Plasma 7-52 [facility] Albumin [Mass/volume] in Ser um or Plasma by Bromocresol green (BCG) dye binding methoOrdered By: Lita Hansen on 10-22-2024 Albumin BCG dye [Mass/Vol] Albumin [Mass/volume] in Serum or Plasma by Bromocresol green (BCG) dye binding metho 3.5-5.7 [facility] Alkaline phosphatase [Enzyma tic activity/volume] in Serum or PlasmaOrdered By: Lita Hansen on 10-22-2024 ALP [Catalytic activity/Vol] Alkaline phosphatase [Enzymatic activity/volume] in Serum or Plasma 34-104 [facility] Aspartate aminotransferase [ Enzymatic activity/volume] in Serum or PlasmaOrdered By: Lita Hansen on 10-22-2024 AST [Catalytic activity/Vol] Aspartate aminotransferase [Enzymatic activity/volume] in Serum or Plasma 13-39 [facility] Basophils Auto (Bld) [#/Vol] Ordered By: Lita Hansen on 10-22-2024 Basophils (Bld) [#/Vol] Automated basoph il count 0.0-0.2 [facility] Basophils/100 WBC Auto (Bld) Ordered By: Lita Hansen on 10-22-2024 Basophils/100 WBC (Bld) Automated basoph il % . [facility] Bilirubin.total [Mass/volume ] in Serum or PlasmaOrdered By: Lita Hansen on 10-22-2024 Bilirubin [Mass/Vol] Bilirubin.total [Mass/volume] in Serum or Plasma 0.3-1.0 [facility] Calcium [Mass/volume] in Ser um or PlasmaOrdered By: Lita Hansen on 10-22-2024 Calcium [Mass/Vol] Calcium [Mass/volume] in Serum or Plasma 8.6-10.3 [facility] Carbon dioxide, total [Moles /volume] in Serum or PlasmaOrdered By: Lita Hanesn on 10-22-2024 CO2 [Moles/Vol] Carbon dioxide, total [Moles/volume] in Serum or Plasma 21.0-31.0 [facility] Chloride [Moles/volume] in S deon or PlasmaOrdered By: Lita Hansen on 10-22-2024 Chloride [Moles/Vol] Chloride [Moles/volume] in Serum or Plasma 98-107 [facility] Complete Blood Count Auto Di ffon 10-22-2024 Basophils (Bld) [#/Vol] 0.0 10*3/uL Normal 0.0-0.2 [facility] Comment on above: Result Comment: PERF ORMED BY: [place] [address] PATHOLOGIST AUT[employer]ODY SERVICE MECHANIC MAE TOBAR M.D. Performed By: #### C BC, CMP #### [facility] [address] [place] [address] [place] Basophils/100 WBC (Bld) 0.3 % Normal . Santana roblero [facility] Comment on above: Performed By: #### C BC, CMP #### [facility] [address] [place] [address] [place] Eosinophils (Bld) [#/Vol] 0.0 10*3/uL Normal 0.0-0.45 [facility] Comment on above: Performed By: #### C BC, CMP #### [facility] [address] [place] [address] [place] Eosinophils/100 WBC (Bld) 0.0 % Normal . [facility] Comment on above: Performed By: #### C BC, CMP #### [address] Erythrocyte distribution width (RBC) [Ratio] 14.4 % Normal 11.9-15.3 [facility] Comment on above: Performed By: #### C BC, CMP #### [address] Hematocrit (Bld) [Volume fraction] 38.1 % Normal 34.0-46.4 [facility] Comment on above: Performed By: #### C BC, CMP #### [address] Hemoglobin (Bld) [Mass/Vol] 13.1 g/dL Normal 11.8-15.4 [facility] Comment on above: Performed By: #### C BC, CMP #### [address] Lymphocytes (Bld) [#/Vol] 1.9 10*3/uL Normal 1.00-4.8 [facility] Comment on above: Performed By: #### C BC, CMP #### [place] [address] [place] Lymphocytes/100 WBC (Bld) 28.7 % Normal . [facility] Comment on above: Performed By: #### C BC, CMP #### [address] MCH (RBC) [Entitic mass] 28.9 pg Normal 24.7-34.3 [facility] Comment on above: Performed By: #### C BC, CMP #### [address] MCV (RBC) [Entitic vol] 84.2 fL Normal 80-100 T [facility] Comment on above: Performed By: #### C BC, CMP #### [address] Mean Corpuscular HGB Conc 34.4 g/dL Normal 32.0-35.0 [facility] Comment on above: Performed By: #### C BC, CMP #### [facility] [address] [place] [address] [place] Monocytes (Bld) [#/Vol] 0.6 10*3/uL Normal 0.0-0.8 [facility] Comment on above: Performed By: #### C BC, CMP #### [facility] [address] [place] [address] [place] Monocytes/100 WBC (Bld) 9.4 % Normal . [facility] Comment on above: Performed By: #### C BC, CMP #### [facility] [address] [place] [address] [place] Neutrophils (Bld) [#/Vol] 4.0 10*3/uL Normal 1.8-7.7 [facility] Comment on above: Performed By: #### C BC, CMP #### [facility] [address] Neutrophils/100 WBC (Bld) 61.6 % Normal . [facility] Comment on above: Performed By: #### C BC, CMP #### [place] [address] [place] NRBC% 0.2 /100{WBC} Normal 0-0.5 [facility] Comment on above: Performed By: #### C BC, CMP #### [facility] [address] [place] [address] [place] Platelet mean volume (Bld) [Entitic vol] 8.1 fL Normal 6.3-10.7 [facility] Comment on above: Performed By: #### C BC, CMP #### [facility] [address] [place] [address] [place] Platelets (Bld) [#/Vol] 306 10*3/uL Normal 150-450 [facility] Comment on above: Performed By: #### C BC, CMP #### [facility] [address] [place] [address] [place] RBC (Bld) [#/Vol] 4.53 10*6/uL Normal 3.60-5.00 [facility] Comment on above: Performed By: #### C BC, CMP #### [address] WBC (Bld) [#/Vol] 6.5 10*3/uL Normal 3.8-11.6 [facility] Comment on above: Performed By: #### C BC, CMP #### [address] Comprehensive Metabolic Pane carlos 10-22-2024 Albumin [Mass/Vol] 4.0 g/dL Normal 3.5-5.7 [facility] Comment on above: Performed By: #### C BC, CMP #### [address] Albumin/Globulin [Mass ratio] 1.5 {ratio} Normal [facility] Comment on above: Performed By: #### C BC, CMP #### [address] ALP [Catalytic activity/Vol] 57 U/L Normal 34-104 [facility] Comment on above: Result Comment: PERF ORMED BY: [place] [address] PATHOLOGIST [employer] SERVICE MECHANIC MAE TOBAR M.D. Performed By: #### C BC, CMP #### [address] ALT [Catalytic activity/Vol] 14 U/L Normal 7-52 [facility] Comment on above: Performed By: #### C BC, CMP #### [address] Anion gap [Moles/Vol] 13.2 mmol/L Normal 6.0-15.0 Th e [facility] Comment on above: Performed By: #### C BC, CMP #### [address] AST [Catalytic activity/Vol] 15 U/L Normal 13-39 [facility] Comment on above: Performed By: #### C BC, CMP #### [address] Bilirubin [Mass/Vol] 0.7 mg/dL Normal 0.3-1.0 [facility] Comment on above: Performed By: #### C POORNIMA, CMP #### [address] Calcium [Mass/Vol] 8.9 mg/dL Normal 8.6-10.3 [facility] Comment on above: Performed By: #### C POORNIMA, CMP #### [address] Chloride [Moles/Vol] 106 mmol/L Normal 98-107 [facility] Comment on above: Performed By: #### C POORNIMA, CMP #### [address] CO2 [Moles/Vol] 27.4 mmol/L Normal 21.0-31.0 [facility] Comment on above: Performed By: #### C POORNIMA, CMP #### [address] Creatinine [Mass/Vol] 0.75 mg/dL Normal 0.60-1.20 [facility] Comment on above: Performed By: #### C POORNIMA, CMP #### [address] GFR/1.73 sq M.predicted MDRD (S/P/Bld) [Vol rate/Area] mL/min/{1.73_m2} Normal [facility] Comment on above: Performed By: #### C POORNIMA, CMP #### [address] Globulin (S) [Mass/Vol] 2.7 g/dL Normal T he [facility] Comment on above: Performed By: #### C POORNIMA, CMP #### [address] Glucose [Mass/Vol] 89 mg/dL Normal 70-100 [facility] Comment on above: Result Comment: Manning Glucose Reference Range is dependent on time and content of last meal. Glucose of more than 200 mg/dL in a nonstressed, ambulatory subject supports the diagnosis of Diabetes Mellitus. ADA recommended reference range Performed By: #### C BC, CMP #### [facility] [address] [place] [address] [place] Potassium [Moles/Vol] 3.6 mmol/L Normal 3.5-5.1 [facility] Comment on above: Performed By: #### C BC, CMP #### [facility] [address] [place] [address] [place] Protein [Mass/Vol] 6.7 g/dL Normal 6.4-8.9 [facility] Comment on above: Performed By: #### C BC, CMP #### [facility] [address] [place] [address] [place] Sodium [Moles/Vol] 143 mmol/L Normal 136-145 [facility] Comment on above: Performed By: #### C BC, CMP #### [facility] [address] [place] [address] [place] Urea nitrogen [Mass/Vol] 17 mg/dL Normal 7-25 [facility] Comment on above: Performed By: #### C BC, CMP #### [facility] [address] [place] [id number] [place] Creatinine [Mass/volume] in Serum or PlasmaOrdered By: Lita Hansen on 10-22-2024 Creatinine [Mass/Vol] Creatinine [Mass/volume] in Serum or Plasma 0.60-1.20 [facility] Eosinophils Auto (Bld) [#/Vo l]Ordered By: Lita Hansen on 10-22-2024 Eosinophils (Bld) [#/Vol] Automated eosinophil count 0.0-0.45 [facility] Eosinophils/100 WBC Auto (Bl d)Ordered By: Lita Hansen on 10-22-2024 Eosinophils/100 WBC (Bld) Automated eosinophil % . [facility] Erythrocyte distribution wid th Auto (RBC) [Ratio]Ordered By: Lita Hansen on 10-22-2024 Erythrocyte distribution width (RBC) [Ratio] Erythrocyte distribution width [Ratio] by Automated count 11.9-15.3 [facility] Globulin Calc (S) [Mass/Vol] Ordered By: Lita Hansen on 10-22-2024 Globulin (S) [Mass/Vol] Serum globulin measurement by calculation (mass/volume) [facility] Glucose [Mass/volume] in Ser um or PlasmaOrdered By: Lita Hansen on 10-22-2024 Glucose [Mass/Vol] Glucose [Mass/volume] in Serum or Plasma 70-100 [facility] Comment on above: ADA recommended refe rence rangeRandom Glucose Reference Range is dependent on time and content of last meal. Glucose of more than 200 mg/dL in a nonstressed, ambulatory subject supports the diagnosis of Diabetes Mellitus. Hematocrit Auto (Bld) [Volum e fraction]Ordered By: Lita Hansen on 10-22-2024 Hematocrit (Bld) [Volume fraction] Hematocrit [Volume Fraction] of Blood by Automated count 34.0-46.4 [facility] Hemoglobin [Mass/volume] in BloodOrdered By: Lita Hansen on 10-22-2024 Hemoglobin (Bld) [Mass/Vol] Hemoglobin [Mass/volume] in Blood 11.8-15.4 [facility] Leukocytes [#/volume] correc jeanette for nucleated erythrocytes in Blood by Automated counOrdered By: Lita Hansen on 10-22-2024 WBC corrected for nucl RBC Auto (Bld) [#/Vol] Leukocytes [#/volume] corrected for nucleated erythrocytes in Blood by Automated coun 3.8-11.6 [facility] Lymphocytes Auto (Bld) [#/Vo l]Ordered By: Lita Hansen on 10-22-2024 Lymphocytes (Bld) [#/Vol] Lymphocytes [#/volume] in Blood by Automated count 1.00-4.8 [facility] Lymphocytes/100 WBC Auto (Bl d)Ordered By: Lita Hansen on 10-22-2024 Lymphocytes/100 WBC (Bld) Lymphocytes/100 leukocytes in Blood by Automated count . [facility] MCH Auto (RBC) [Entitic mass ]Ordered By: Lita Hansen on 10-22-2024 MCH (RBC) [Entitic mass] MCH [Entitic mass] by Automated count 24.7-34.3 [facility] MCHC Auto (RBC) [Mass/Vol]Or dered By: Lita Hansen on 10-22-2024 MCHC (RBC) [Mass/Vol] MCHC [Mass/volume] by Automated count 32.0-35.0 [facility] MCV Auto (RBC) [Entitic vol] Ordered By: Lita Hansen on 10-22-2024 MCV (RBC) [Entitic vol] MCV [Entitic volume] by Automated count 80-100 [facility] Monocytes Auto (Bld) [#/Vol] Ordered By: iLta Hansen on 10-22-2024 Monocytes (Bld) [#/Vol] Automated blood monocyte count 0.0-0.8 [facility] Monocytes/100 WBC Auto (Bld) Ordered By: Lita Hansen on 10-22-2024 Monocytes/100 WBC (Bld) Automated monocy te % . [facility] Neutrophils Auto (Bld) [#/Vo l]Ordered By: Lita Hansen on 10-22-2024 Neutrophils (Bld) [#/Vol] Neutrophils [#/volume] in Blood by Automated count 1.8-7.7 [facility] Neutrophils/100 WBC Auto (Bl d)Ordered By: Lita Hansen on 10-22-2024 Neutrophils/100 WBC (Bld) Automated neutrophil % . [facility] No Panel InformationOrdered By: Lita Hansen on 10-22-2024 Estimated GFR (CKD-EPI) > 60.0 mL/Min [facility] Creatinine Clearance (Chem N/A [facility] Nucleated erythrocytes [Pres ence] in Blood by Automated countOrdered By: Lita Hansen on 10-22-2024 Nucleated RBC Auto Ql (Bld) Nucleated erythrocytes [Presence] in Blood by Automated count 0-0.5 [facility] Platelet mean volume Auto (B ld) [Entitic vol]Ordered By: Lita Hansen on 10-22-2024 Platelet mean volume (Bld) [Entitic vol] Platelet mean volume [Entitic volume] in Blood by Automated count 6.3-10.7 [facility] Platelets Auto (Bld) [#/Vol] Ordered By: Lita Hansen on 10-22-2024 Platelets (Bld) [#/Vol] Platelets [#/volume] in Blood by Automated count 150-450 [facility] Potassium [Moles/volume] in Serum or PlasmaOrdered By: Lita Hansen on 10-22-2024 Potassium [Moles/Vol] Potassium [Moles/volume] in Serum or Plasma 3.5-5.1 [facility] Protein [Mass/volume] in Ser um or PlasmaOrdered By: Lita Hansen on 10-22-2024 Protein [Mass/Vol] Protein [Mass/volume] in Serum or Plasma 6.4-8.9 [facility] RBC Auto (Bld) [#/Vol]Ordere d By: Lita Hansen on 10-22-2024 RBC (Bld) [#/Vol] Erythrocytes [#/volume] in Blood by Automated count 3.60-5.00 [facility] Serum or plasma albumin/glob ulin mass ratioOrdered By: Lita Hansen on 10-22-2024 Albumin/Globulin [Mass ratio] Serum or plasma albumin/globulin mass ratio [facility] Serum or plasma anion gap de terminationOrdered By: Lita Hansen on 10-22-2024 Anion gap [Moles/Vol] Serum or plasma anion gap determination 6.0-15.0 [facility] Sodium [Moles/volume] in Ser um or PlasmaOrdered By: Lita Hansen on 10-22-2024 Sodium [Moles/Vol] Sodium [Moles/volume] in Serum or Plasma 136-145 [facility] Urea nitrogen [Mass/volume] in Serum or PlasmaOrdered By: Lita Hansen on 10-22-2024 Urea nitrogen [Mass/Vol] Urea nitrogen [Mass/volume] in Serum or Plasma 7-25 [facility] WBC Auto (Bld) [#/Vol]Ordere d By: Lita Hansen on 10-22-2024 WBC (Bld) [#/Vol] Leukocytes [#/volume] in Blood by Automated count 3.8-11.6 [facility] Carlos 06-21-2024 L Specimen: [id number] Received: 06/21/24 Status: NILSA Vasquez Num: [id number] Spec Type: Surgical Subm Dr: Manoj Forbes MD Tissues: A Gross Only (DESCENDING COLON BX) B Gross Only (SIGMOID COLON BX) C Gross Only (RECTAL BX) Procedures: Level 1 Gross/3 Comments: PER DR. FORBES SPECIMEN IS TO BE SENT DIRECTLY TO [facility] Age/ Patient Sex Location Account Attending Physician Billie Yeboah 78/F [id number] Manoj Forbes MD SPEC NUM: [id number] RECD: 06/21/24 STATUS: NILSA VASQUEZ NUM: [id number] OMID: 06/21/24 [facility] DR: Manoj Forbes MD ENTERED: 06/21/24 [facility] DR: SPEC TYPE: Surgical DEPT: S ENTERED BY: [id number] RECV BY: [id number] ORDERED: Level 1 Gross/3 COMMENTS: PER DR. FORBES SPECIMEN IS TO BE SENT DIRECTLY TO [facility] ORDERED: Level 1 Gross/3 COMMENTS: PER DR. FORBES SPECIMEN IS TO BE SENT DIRECTLY TO [facility] Supplemental Report Addendum 1 Entered: 08/02/24 Supplemental for findings of consultation [facility] A, -Colonic mucosa with no pathologic diagnostic abnormality; negative for granulomas or dysplasia B, -Chronic minimally active colitis; negative for granulomas or dysplasia C, -Chronic mildly active colitis; negative for granuloma or dysplasia Specimen: [id number] Received: 06/21/24 Status: NILSA Darcy Num: [id number] Spec Type: Surgical Subm Dr: Manoj Forbes MD Tissues: A Gross Only (DESCENDING COLON BX) B Gross Only (SIGMOID COLON BX) C Gross Only (RECTAL BX) Procedures: Level 1 Gross/3 Comments: PER DR. FORBES SPECIMEN IS TO BE SENT DIRECTLY TO [facility] Patient: Billie Yeboah [id number] (Continued) Specimen: [id number] Received: 06/21/24 (Continued) Supplemental Report (Continued) Signed (signatur e on file) ChinLela Pearce MD 08/02/24 1949 Specimen: [id number] Received: 06/21/24 Status: NILSA Vasquez Num: [id number] Spec Type: Surgical Subm Dr: Manoj Forbes MD Tissues: A Gross Only (DESCENDING COLON BX) B Gross Only (SIGMOID COLON BX) C Gross Only (RECTAL BX) Procedures: Level 1 Gross/3 Comments: PER DR. FORBES SPECIMEN IS TO BE SENT DIRECTLY TO [facility] Patient: Billie Yeboah [id number] (Continued) Specimen: [id number] Received: 06/21/24 (Continued) Supplemental Report (Continued) Addendum [...] tissue fragments. The specimen is sent to [facility] for analysis. GROSS ONLY-JG Part B is received in formalin labeled with the patients name, date of , and sigmoid colon biopsy are 3 davila-garcia, focally erythematous, friable, 0.2, 0.3 and 0.4 cm tissue bits. The specimen is sent to [facility] for analysis. GROSS ONLY-JG Part C is received in formalin labeled with the patients name, date of , and rectal biopsy are 3 davila-garcia, focally erythematous, friable, 0.2, 0.3 and 0.3 cm tissue bits. GROSS ONLY-JG Specimen: [id number] Received: 06/21/24 Status: NILSA Vasquez Num: [id number] Spec Type: Surgical (more content not included)... Normal [facility] SURGICAL PATHOLOGYon CASE REPORT Normal [facility] Comment on above: Order Comment: Speci men Type: TISSUE SPECIMEN Ordering Facility: [facility] Address: [address] [place], [place] [address] [id number] Result Comment: Surg ical Pathology Report Case: [id number] Authorizing Provider: Manoj Forbes MD Collected: 06/21/2024 09:28 AM Ordering Location: [facility] Received: 06/24/2024 12:23 PM [facility] Pathologist: Lizeth Chamberlain MD Specimens: A) - Colon, Biopsy, Descending colon bx r/o Chrons and ulcerative colitis [id number] A B) - Colon, Biopsy, Sigmoid colon bx r/o Chron's, ulcerative colitis, SCAD [id number] B C) - Rectum, Biopsy, Rectal bx r/o Chron's and ulcerative colitis [id number] Performed By: #### S #### [facility] CLIA [id number] [address] [place] [address] [place] [facility] CLIA [id number] [address] [place] [address] [place] CLINICAL HISTORY Colitis Normal [facility] Comment on above: Order Comment: Speci men Type: TISSUE SPECIMEN Ordering Facility: [facility] Address: [address] [place], [place] [address] [address] Performed By: #### S #### [facility] CLIA [id number] [place] [address] [place] [facility] CLIA [id number] [address] [place] [address] STATES OF [facility] FINAL DIAGNOSIS Normal [facility] Comment on above: Order Comment: Speci men Type: TISSUE SPECIMEN Ordering Facility: [facility] Address: [address] [place], [place] [address] [id number] Result Comment: javier Mendoza, biopsy: - Colonic mucosa with no pathologic diagnostic abnormality; negative for granulomas or dysplasia. B. Colon, sigmoid, biopsy: - Chronic minimally active colitis; negative for granulomas or dysplasia. C. Rectum, biopsy: - Chronic mildly active colitis; negative for granulomas or dysplasia. Performed By: #### S #### [facility] CLIA [id number] [place] [address] STATES OF [facility] CLIA [id number] [address] [place] [address] FINAL PERFORMING LAB Normal [facility] Comment on above: Order Comment: Speci men Type: TISSUE SPECIMEN Ordering Facility: [facility] Address: [address] [place], [place] [address] [address] Result Comment: Diag nostic interpretation performed at [facility], [id number] [place] [address] CLIA# [id number] Unit Clerk: Lizeth Chamberlain M.D. Performed By: #### S #### [facility] CLIA [id number] [place] [address] LAB CLIA [id number] [address] [place] [address] GROSS DESCRIPTION Normal [facility] Comment on above: Order Comment: Speci men Type: TISSUE SPECIMEN Ordering Facility: [facility] Address: [facility] [place] [address] Result Comment: A. C olon, Biopsy Received [...] 0.2 cm. Totally submitted in one cassette. BC June 24, 2024 12:54 PM Gross examination performed at [facility], [address] [place] [address] Performed By: #### S #### [facility] CLIA [id number] [address] [place] [address] [place] [facility] CLIA [id number] [facility] [address] Automated basophil %Ordered By: Manoj Forbes on 04-01-2024 Basophils/100 WBC (Bld) 0.6 % Normal . [facility] Comment on above: Performed By: #### C RP, CBC, ESR #### [address] Automated basophil countOrde red By: Manoj Forbes on 04-01-2024 Basophils (Bld) [#/Vol] 0.0 10*3/uL Normal 0.0-0.2 [facility] Comment on above: Performed By: #### C RP, CBC, ESR #### [address] Automated blood monocyte cou ntOrdered By: Manoj Forbes on 04-01-2024 Monocytes (Bld) [#/Vol] 0.5 10*3/uL Normal 0.0-0.8 [facility] Comment on above: Performed By: #### C RP, CBC, ESR #### [address] Automated eosinophil %Ordere d By: Manoj Forbes on 04-01-2024 Eosinophils/100 WBC (Bld) 5.1 % Normal . [facility] Comment on above: Performed By: #### C RP, CBC, ESR #### [facility] [address] Automated eosinophil countOr dered By: Manoj Forbes on 04-01-2024 Eosinophils (Bld) [#/Vol] 0.3 10*3/uL Normal 0.0-0.45 [facility] Comment on above: Performed By: #### C RP, CBC, ESR #### [facility] [address] [place] [id number] [facility] Automated monocyte %Ordered By: Manoj Forbes on 04-01-2024 Monocytes/100 WBC (Bld) 9.4 % Normal . [facility] Comment on above: Performed By: #### C RP, CBC, ESR #### [facility] [address] [place] [id number] [facility] Automated neutrophil %Ordere d By: Manoj Forbes on 04-01-2024 Neutrophils/100 WBC (Bld) 68.0 % Normal . [facility] Comment on above: Performed By: #### C RP, CBC, ESR #### [facility] [address] [place] [id number] [facility] C reactive protein [Mass/vol ume] in Serum or PlasmaOrdered By: Manoj Forbes on 04-01-2024 CRP [Mass/Vol] < 0.5 mg/dL 0.0-0.5 [facility] C-Reactive Proteinon 024 CRP [Mass/Vol] mg/L Normal 0.0-0.5 [facility] Comment on above: Result Comment: PERF ORMED BY: [place] [address] PATHOLOGIST [employer]ODY SERVICE MECHANIC SE CHEATHAM M.D. Performed By: #### C RP, CBC, ESR #### [place] [id number] [facility] Calprotectin, Fecalon 2023 Calprotectin, Fecal 238 High 0-120 [facility] Comment on above: Result Comment: Conc entration Interpretation Follow-Up < 5 - 50 ug/g Normal None >50 -120 ug/g Borderline Re-evaluate in 4-6 weeks >120 ug/g Abnormal Repeat as clinically indicated Performed at: [facility] [address] [id number] Hearing Impaired Itinerant Teacher: Nadeen Gant MD, Phone: [phone] PERFORMED BY: [address] [place] [address] PATHOLOGIST AUT[employer] BODY SERVICE MECHANIC SE CHEATHAM M.D. Performed By: #### C ALPROTECT #### [facility] , #### IBD DIAG #### [address] Complete Blood Count Auto Di ffon 04-01-2024 Mean Corpuscular HGB Conc 34.3 g/dL Normal 32.0-35.0 [facility] Comment on above: Performed By: #### C RP, CBC, ESR #### [address] NRBC% 0.1 /100{WBC} Normal 0-0.5 [facility] Comment on above: Performed By: #### C RP, CBC, ESR #### [address] Erythrocyte Sedimentation Ra char 04-01-2024 ESR (Bld) [Velocity] 20 mm/h Normal 0-29 [facility] Comment on above: Result Comment: PERF ORMED BY: [place] [address] PATHOLOGIST AUT[employer] BODY SERVICE MECHANIC SE CHEATHAM M.D. Performed By: #### C RP, CBC, ESR #### [address] Erythrocyte distribution wid th [Ratio] by Automated countOrdered By: Manoj Forbes on 04-01-2024 Erythrocyte distribution width (RBC) [Ratio] 13.1 % Normal 11.9-15.3 [facility] Comment on above: Performed By: #### C RP, CBC, ESR #### [address] Erythrocyte sedimentation ra te by Photometric methodOrdered By: Manoj Forbes on 04-01-2024 ESR Photometric method (Bld) [Velocity] 20 mm/hr 0-29 [facility] Erythrocytes [#/volume] in B lood by Automated countOrdered By: Manoj Forbes on 04-01-2024 RBC (Bld) [#/Vol] 4.10 10*6/uL Normal 3.60-5.00 [facility] Comment on above: Performed By: #### C RP, CBC, ESR #### [address] Hematocrit [Volume Fraction] of Blood by Automated countOrdered By: Manoj Forbes on 04-01-2024 Hematocrit (Bld) [Volume fraction] 36.4 % Normal 34.0-46.4 [facility] Comment on above: Performed By: #### C RP, CBC, ESR #### [address] Hemoglobin [Mass/volume] in BloodOrdered By: Manoj Forbes on 04-01-2024 Hemoglobin (Bld) [Mass/Vol] 12.5 g/dL Normal 11.8-15.4 [facility] Comment on above: Performed By: #### C RP, CBC, ESR #### [address] IBD [facility] [employer] 024 IBD Comment Normal [facility] Comment on above: Result Comment: See report. Scanned copy available in EMR. PERFORMED BY: [place] [address] PATHOLOGIST AUTO BODY SERVICE MECHANIC SE CHEATHAM M.D. Performed By: #### C ALPROTECT #### [facility] , #### IBD DIAG #### [address] Leukocytes [#/volume] correc jeanette for nucleated erythrocytes in Blood by Automated counOrdered By: Manoj Forbes on 04-01-2024 WBC corrected for nucl RBC Auto (Bld) [#/Vol] 5.7 10*3/uL 3.8-11.6 [facility] Leukocytes [#/volume] in Blo od by Automated countOrdered By: Manoj Forbes on 04-01-2024 WBC (Bld) [#/Vol] 5.7 10*3/uL Normal 3.8-11.6 [facility] Comment on above: Performed By: #### C RP, CBC, ESR #### [address] Lymphocytes [#/volume] in Bl ood by Automated countOrdered By: Manoj Forbes on 04-01-2024 Lymphocytes (Bld) [#/Vol] 1.0 10*3/uL Normal 1.00-4.8 [facility] Comment on above: Performed By: #### C RP, CBC, ESR #### [address] Lymphocytes/100 leukocytes i n Blood by Automated countOrdered By: Manoj Forbes on 04-01-2024 Lymphocytes/100 WBC (Bld) 16.9 % Normal . [facility] Comment on above: Performed By: #### C RP, CBC, ESR #### [address] MCH [Entitic mass] by Automa jeanette countOrdered By: Manoj Forbes on 04-01-2024 MCH (RBC) [Entitic mass] 30.4 pg Normal 24.7-34.3 [facility] Comment on above: Performed By: #### C RP, CBC, ESR #### [address] MCHC Auto (RBC) [Mass/Vol]Or dered By: Manoj Forbes on 04-01-2024 MCHC (RBC) [Mass/Vol] 34.3 g/dL 32.0-35.0 [facility] MCV [Entitic volume] by Auto mated countOrdered By: Manoj Forbes on 04-01-2024 MCV (RBC) [Entitic vol] 88.6 fL Normal 80-100 [facility] Comment on above: Performed By: #### C RP, CBC, ESR #### [address] Neutrophils [#/volume] in Bl ood by Automated countOrdered By: Manoj Forbes on 04-01-2024 Neutrophils (Bld) [#/Vol] 3.9 10*3/uL Normal 1.8-7.7 [facility] Comment on above: Performed By: #### C RP, CBC, ESR #### [facility] [address] Nucleated erythrocytes [Pres ence] in Blood by Automated countOrdered By: Manoj Forbes on 04-01-2024 Nucleated RBC Auto Ql (Bld) 0.1 /100{WBC} 0-0.5 [facility] Platelet mean volume [Entiti c volume] in Blood by Automated countOrdered By: Manoj Forbes on 04-01-2024 Platelet mean volume (Bld) [Entitic vol] 7.5 fL Normal 6.3-10.7 [facility] Comment on above: Performed By: #### C RP, CBC, ESR #### [facility] [address] Platelets [#/volume] in Bloo d by Automated countOrdered By: Manoj Forbes on 04-01-2024 Platelets (Bld) [#/Vol] 279 10*3/uL Normal 150-450 [facility] Comment on above: Performed By: #### C RP, CBC, ESR #### [facility] [address] ANES POSTPROC EVALon 024 ANES POSTPROC EVAL HNO ID: [id number] Author: MONO WHALEY MD Service: Anesthesiology Author [...] March 19, 2024 TIME: 11:33 AM CSN: [id number] [facility] ANES PRE-OPon 03-19-2024 ANES PRE-OP HNO ID: [id number] Author: MONO WHALEY MD Service: Anesthesiology Author [...] and consent discussed: yes. Patient / Responsible Democrat agrees to proceed: yes Patient / Surrogate [...] SpO2 96 % 03/19/24 0710 No current facility-administer ed medications on file as of 03/19/2024. Outpatient [...] March 19, 2024 TIME: 7:22 AM CSN: [id number] Normal [facility] Colonoscopyon 03-19-2024 Colonoscopy [facility] Gastrointestinal Endoscopy Patient Name: Billie Yeboah Procedure Date: 03/19/2024 7:20 AM Date of : 1945 Admit Type: Outpatient Age: 78 Room: [place] [address] Gender: Female Note Status: Finalized Attending MD: Funmilayo Odell MD, [id number] Procedure: Colonoscopy Indications: Rectal bleeding Providers: Funmilayo [...] the patient. Procedure Code(s): --- Professional --- 18653, Colonoscopy, flexible; with biopsy, single or multiple CPT copyright 2020 [place]. All rights reserved. The codes documented in this report are preliminary and upon insurance coder review may be revised to meet current [...] Loss: Estimated blood loss was minimal. Normal [facility] OPERATIVE NOon 03-19-2024 OPERATIVE NO HNO ID: [id number] Author: FUNMILAYO ODELL MD Service: Colorectal Author Type: Physician Type: Operative Report Filed: 03/19/2024 08:51 Note Text: COLON AND RECTAL SURGERY OPERATIVE REPORT PATIENT NAME: Billie Yeboah ADMISSION DATE: 03/19/2024 LOG ID: [id number] SURGERY/PROCEDURE DATE: 03/19/2024 INCISION/PROCEDURE START TIME: 7:54 AM INCISION CLOSE/PROCEDURE END TIME: 8:47 AM AGE: [age] year old SEX: female SURGEON(S)/PROCEDUR ALIST(S) AND ORDER DETAILER(S): Surgeons and Role: * Funmilayo Odell MD [...] COMPLICATIONS: None INTRAOPERATIVE FLUIDS: See anesthesia record. SPONGE/INSTRUMENT/N EEDLE COUNTS: Correct x2. PRESENCE STATEMENT: I was present for the entire procedure as I have dictated above. Funmilayo Odell M.D. Department of Surgery Division of Colon and Rectal Surgery Normal [facility] CBC panel Auto (Bld)on 02-27 Erythrocyte distribution width (RBC) [Ratio] 12.3 % 11.5 - 15.0 % [facility] Hematocrit (Bld) [Volume fraction] 42.4 % 36.0 - 46.0 % [facility] Hemoglobin (Bld) [Mass/Vol] 13.6 g/dL 11.5 - 15.5 g/dL [facility] Interpretation and review of laboratory results Normal [facility] MCH (RBC) [Entitic mass] 29.6 pg 26.0 - 34.0 pg [facility] MCHC (RBC) [Mass/Vol] 32.1 g/dL 30.5 - 36.0 g/dL [facility] MCV (RBC) [Entitic vol] 92.4 fL 80.0 - 100.0 fL [facility] Nucleated RBC (Bld) [#/Vol] NINF [facility] Platelet mean volume (Bld) [Entitic vol] 9.6 fL 9.0 - 12.7 fL [facility] Platelets (Bld) [#/Vol] 352 10*3/uL [facility] RBC (Bld) [#/Vol] 4.59 10*6/uL 3.90 - 5.2 0 m/uL [facility] WBC (Bld) [#/Vol] 6.15 10*3/uL [facility] Erythrocyte distribution width (RBC) [Ratio] 12.3 % Normal 11.5-15.0 [facility] Comment on above: Order Comment: Jonathani nhung Type: BLOOD SPECIMEN Ordering Facility: [facility] Address: [address] [place] [address] Performed By: #### 5 8410-2 #### [facility] CLIA [id number] [address] STATES OF [facility] Hematocrit (Bld) [Volume fraction] 42.4 % Normal 36.0-46.0 [facility] Comment on above: Order Comment: Jonathani nhung Type: BLOOD SPECIMEN Ordering Facility: [facility] Address: [address] [place] [address] Performed By: #### 5 8410-2 #### [facility] CLIA [id number] [address] [place], [place] [address] [place] [address] [place] Hemoglobin (Bld) [Mass/Vol] 13.6 g/dL Normal 11.5-15.5 [facility] Comment on above: Order Comment: Jonathani nhung Type: BLOOD SPECIMEN Ordering Facility: [facility] Address: [address] [place] [address] Performed By: #### 5 8410-2 #### [facility] CLIA [id number] [address] [place] [address] [place] MCH (RBC) [Entitic mass] 29.6 pg Normal 26.0-34.0 [facility] Comment on above: Order Comment: Speci men Type: BLOOD SPECIMEN Ordering Facility: [facility] Address: [address] [place] [address] Performed By: #### 5 8410-2 #### [facility] CLIA [id number] [address] [place] [address] [place] MCHC (RBC) [Mass/Vol] 32.1 g/dL Normal 30.5-36.0 [facility] Comment on above: Order Comment: Speci men Type: BLOOD SPECIMEN Ordering Facility: [facility] Address: [address] [place] [address] Performed By: #### 5 8410-2 #### [facility] CLIA [id number] [address] [place] [address] [place] MCV (RBC) [Entitic vol] 92.4 fL Normal 80.0-100.0 [facility] Comment on above: Order Comment: Speci men Type: BLOOD SPECIMEN Ordering Facility: [facility] Address: [address] [place] [address] Performed By: #### 5 8410-2 #### [facility] CLIA [id number] [address] [place], [place] [id number] [place] [address] [place] Nucleated RBC (Bld) [#/Vol] 10*3/uL Normal <0.01 [facility] Comment on above: Order Comment: Speci men Type: BLOOD SPECIMEN Ordering Facility: [facility] Address: [address] [place] [address] Performed By: #### 5 8410-2 #### [facility] CLIA [id number] [address] [place] [address] [place] Platelet mean volume (Bld) [Entitic vol] 9.6 fL Normal 9.0-12.7 [facility] Comment on above: Order Comment: Speci men Type: BLOOD SPECIMEN Ordering Facility: [facility] Address: [address] [place] [address] Performed By: #### 5 8410-2 #### [facility] CLIA [id number] [address] [place] [address] [facility] [place] Platelets (Bld) [#/Vol] 352 10*3/uL Normal 150-400 [facility] Comment on above: Order Comment: Speci men Type: BLOOD SPECIMEN Ordering Facility: [facility] Address: [address] [place] [address] Performed By: #### 5 8410-2 #### [facility] CLIA [id number] [address] [place], [place] [address] [place] [address] [place] RBC (Bld) [#/Vol] 4.59 10*6/uL Normal 3.90-5.20 [facility] Comment on above: Order Comment: Speci men Type: BLOOD SPECIMEN Ordering Facility: [facility] Address: [address] [place] [address] Performed By: #### 5 8410-2 #### [facility] [place] [id number] [address] [place] [id number] [place] WBC (Bld) [#/Vol] 6.15 10*3/uL Normal 3.70-11.00 [facility] Comment on above: Order Comment: Speci men Type: BLOOD SPECIMEN Ordering Facility: [facility] Address: [address] [place] [address] Performed By: #### 5 8410-2 #### [facility] IA [id number] [address] [place] [address] [place] Comprehensive metabolic 2000 panelon 02-28-2024 Albumin [Mass/Vol] 4.1 g/dL 3.9 - 4.9 g/dL [facility] ALP [Catalytic activity/Vol] 77 U/L 34 - 123 U/L [facility] ALT [Catalytic activity/Vol] 14 U/L 7 - 38 U/L [facility] Anion gap [Moles/Vol] 12 mmol/L 8 - 15 mmol/L [facility] AST [Catalytic activity/Vol] 18 U/L 13 - 35 U/L [facility] Bilirubin [Mass/Vol] 0.5 mg/dL 0.2 - 1 .3 mg/dL [facility] Calcium [Mass/Vol] 9.4 mg/dL 8.5 - 10. 2 mg/dL [facility] Chloride [Moles/Vol] 102 mmol/L 98 - 10 7 mmol/L [facility] CO2 [Moles/Vol] 27 mmol/L 22 - 30 mmol/L [facility] Creatinine [Mass/Vol] 0.81 mg/dL 0.58 - 0.96 mg/dL [facility] GFR/1.73 sq M.predicted among non-blacks MDRD (S/P/Bld) [Vol rate/Area] 74 mL/min/{1.73_m2} - PINF [facility] Comment on above: Estimated Glomerular Filtration Rate [...] 107 mg/dL High 74 - 99 mg/dL [facility] Comment on above: The [place] [employer] Association (ADA) provides guidance for [...] Standards of Medical Care in Diabetes 2016, [place] [employer]. Diabetes Care. 2016.39(Suppl 1). Interpretation and review of laboratory results Abnormal [facility] Potassium [Moles/Vol] 4.4 mmol/L 3.7 - 5.1 mmol/L [facility] Protein [Mass/Vol] 7.5 g/dL 6.3 - 8.0 g/dL [facility] Sodium [Moles/Vol] 141 mmol/L 136 - 144 mmol/L [facility] Urea nitrogen [Mass/Vol] 11 mg/dL 7 - 21 mg/dL [facility] Albumin [Mass/Vol] 4.1 g/dL Normal 3.9-4.9 [facility] Comment on above: Order Comment: Speci men Type: BLOOD SPECIMEN Ordering Facility: [facility] Address: [address] [place] [address] Performed By: #### 3 016-3, #### [facility] CLIA [id number] [address] [place] [address] [place] ALP [Catalytic activity/Vol] 77 U/L Normal 34-123 [facility] Comment on above: Order Comment: Speci men Type: BLOOD SPECIMEN Ordering Facility: [facility] Address: [address] [place] [address] Performed By: #### 3 016-3, #### [facility] CLIA [id number] [address] [place] [address] [place] ALT [Catalytic activity/Vol] 14 U/L Normal 7-38 [facility] Comment on above: Order Comment: Speci men Type: BLOOD SPECIMEN Ordering Facility: [facility] Address: [address] [place] [address] Performed By: #### 3 016-3, #### [facility] CLIA [id number] [address] [place] [address] [place] Anion gap [Moles/Vol] 12 mmol/L Normal 8-15 [facility] Comment on above: Order Comment: Speci men Type: BLOOD SPECIMEN Ordering Facility: [facility] Address: [address] [place] [address] Performed By: #### 3 016-3, #### [facility] CLIA [id number] [address] [place] [address] [place] AST [Catalytic activity/Vol] 18 U/L Normal 13-35 [facility] Comment on above: Order Comment: Speci men Type: BLOOD SPECIMEN Ordering Facility: [facility] Address: [address] [place] [address] Performed By: #### 3 016-3, #### [facility] CLIA [id number] [address] [place] [address] [place] Bilirubin [Mass/Vol] 0.5 mg/dL Normal 0.2-1.3 [facility] Comment on above: Order Comment: Speci men Type: BLOOD SPECIMEN Ordering Facility: [facility] Address: [address] [place] [address] Performed By: #### 3 016-3, #### [facility] IA [id number] [address] [place] [address] [place] Calcium [Mass/Vol] 9.4 mg/dL Normal 8.5-10.2 [facility] Comment on above: Order Comment: Speci men Type: BLOOD SPECIMEN Ordering Facility: [facility] Address: [address] [place] [address] Performed By: #### 3 016-3, 91823-7 #### [facility] IA [id number] [address] [place] [address] [place] Chloride [Moles/Vol] 102 mmol/L Normal 98-107 [facility] Comment on above: Order Comment: Speci men Type: BLOOD SPECIMEN Ordering Facility: [facility] Address: [address] [place] [address] Performed By: #### 3 016-3, #### [facility] IA [id number] [address] [place] [address] [place] CO2 [Moles/Vol] 27 mmol/L Normal 22-30 [facility] Comment on above: Order Comment: Speci men Type: BLOOD SPECIMEN Ordering Facility: [facility] Address: [address] [place] [address] Performed By: #### 3 016-3, #### [facility] IA [id number] [address] [place] [address] [place] Creatinine [Mass/Vol] 0.81 mg/dL Normal 0.58-0.96 [facility] Comment on above: Order Comment: Speci men Type: BLOOD SPECIMEN Ordering Facility: [facility] Address: [address] [place] [address] Performed By: #### 3 016-3, 57818-3 #### [facility] CLIA [id number] [address] [place] [address] [place] Creatinine and Glomerular filtration rate.predicted panel (S/P/Bld) 74 mL/min/1.73m??? Normal >=60 [facility] Comment on above: Order Comment: Eliu hooker Type: BLOOD SPECIMEN Ordering Facility: [facility] Address: [address] [place] [address] Result Comment: Joycelyn mated Glomerular Filtration Rate [...] actual GFR. Performed By: #### 3 016-3, 68663-5 #### [facility] CLIA [id number] [address] [place] [address] [place] Glucose [Mass/Vol] 107 mg/dL High 74-99 [facility] Comment on above: Order Comment: Eliu hooker Type: BLOOD SPECIMEN Ordering Facility: [facility] Address: [address] [place] [address] Result Comment: The [place] [employer] Association (ADA) provides guidance for cutoff [...] Standards of Medical Care in Diabetes 2016, [place] [employer]. Diabetes Care. 2016.39(Suppl 1). Performed By: #### 3 016-3, #### [facility] CLIA [id number] [address] [place] [address] [place] Potassium [Moles/Vol] 4.4 mmol/L Normal 3.7-5.1 [facility] Comment on above: Order Comment: Speci men Type: BLOOD SPECIMEN Ordering Facility: [facility] Address: [address] [place] [address] Performed By: #### 3 016-3, #### [facility] IA [id number] [address] [place] [address] [place] Protein [Mass/Vol] 7.5 g/dL Normal 6.3-8.0 [facility] Comment on above: Order Comment: Speci men Type: BLOOD SPECIMEN Ordering Facility: [facility] Address: [address] [place] [address] Performed By: #### 3 016-3, 71787-7 #### [facility] IA [id number] [address] [place] [address] [place] Sodium [Moles/Vol] 141 mmol/L Normal 136-144 [facility] Comment on above: Order Comment: Speci men Type: BLOOD SPECIMEN Ordering Facility: [facility] Address: [address] [place] [address] Performed By: #### 3 016-3, 11076-8 #### [facility] IA [id number] [address] [place] [address] [place] Urea nitrogen [Mass/Vol] 11 mg/dL Normal 7-21 [facility] Comment on above: Order Comment: Speci men Type: BLOOD SPECIMEN Ordering Facility: [facility] Address: [address] [place] [address] Performed By: #### 3 016-3, 63684-8 #### [facility] IA [id number] [address] [place] [address] [place] ECG COMPLETEon 02-28-2024 ECG COMPLETE Ventricular Rate : 113 BPM Atrial Rate : 113 BPM P-R Interval : 166 ms QRS Duration : 86 ms Q-T Interval : 318 ms QTC Calculation(Bazett) : 436 ms Calculated P [place] : 66 degrees Calculated R [place] : -50 degrees Calculated T [place] : 69 degrees Sinus tachycardia Right atrial enlargement Left anterior fascicular block Possible Anterolateral infarct , age undetermined Abnormal ECG No previous ECGs available Confirmed by DANIEL LAZO MD ([id number]) on 03/06/2024 10:31:42 AM NAME : BILLIE YEBOAH PID : [id number] : 1945 Gender : Female Race : ORD : [id number] Procedure Date : Feb 28 2024 13:49:41 Edit Date : Mar 06 2024 10:31:46 Diagnosis: Sinus tachycardia Right atrial enlargement Left anterior fascicular block Possible Anterolateral infarct , age undetermined Abnormal ECG No previous ECGs available Confirmed by ADNIEL LAZO MD ([id number]) on 03/06/2024 10:31:42 AM Test Reason : HCS Location : 301 : [facility] Overread By : DANIEL LAZO MD Edited By : DANIEL LAZO MD Referred By : FUNMILAYO ODELL Acquired by : Abdiaziz frances [facility] Free T4 [Mass/Vol]on 024 Interpretation and review of laboratory results Abnormal [facility] HISTORY PHYSICALon HISTORY PHYSICAL HNO ID: [id number] Author: ZAIDA HERNANDEZ PA-C Service: ? Author Type: Physician Appliance Repairer Type: H&P Filed: 03/10/2024 13:47 Note Text: [...] has never had [facility], but has at either [place] or [facility]. Faxing for records for comparison. Checking [...] hands, unspecified osteoarthritis type Follows with outside rn neurosurgical. On daily Etodolac and has Tramadol for [...] 35 kg/m2 Non-male patient STOP-Bang Score: 1 [id number] Score: [id number] Score: 0 ANESTHESIA FINDINGS: Intubation History: No [...] mg tablet ECG COMPLETE Faxed release to CC video (more content not included)... Normal [facility] T4 FREE/FREE THYROXINEon Free T4 [Mass/Vol] 1.9 ng/dL High 0.9 - 1.7 ng/dL [facility] T4 Free SerPl-mCncon 02-27- 024 Free T4 [Mass/Vol] 1.9 ng/dL High 0.9-1.7 [facility] Comment on above: Order Comment: Speci men Type: BLOOD SPECIMEN Ordering Facility: [facility] Address: [address] [place], [place] [id number] Performed By: #### 3 024-7 #### [facility] CLIA [id number] [address] [place] [address] [id number] [id number] [place] THYROID STIMULATING HORMONEo n 02-28-2024 TSH Qn 0.120 m[IU]/L Low [facility] TSH Qnon 02-28-2024 Interpretation and review of laboratory results Abnormal [facility] TSH SerPl-aCncon 02-28-2024 TSH Qn 0.120 m[IU]/L Low 0.270-4.200 Deisy Fahad siddiqui Comment on above: Order Comment: Eliu hooker Type: BLOOD SPECIMEN Ordering Facility: [facility] Address: [address] [place] [address] Performed By: #### 3 016-3, 66792-5 #### [facility] CLIA [id number] [facility] [address] [place] CNOVon 02-23-2024 CNOV Office Visit ([facility]) ---- RAJENDRABILLIE Glover ([id number]) 1945 F Date Time Provider Department 02/23/24 2:40 PM FUNMILAYO ODELL [facility] During your visit today, we recorded [...] evaluation of hemorrhoids. She was last seen 5/10/24 for rectal bleeding and hemorrhoids. Rubber band [...] ALLERGIES Allergen Reactions Ciprofloxacin Rash, Unknown Nitrofurantoin Barber* Other: See Comments, GI Upset Sulfamethoxazole-Tr * [...] exam reveals no gross blood or masses Legal Adviser present: Yes, Sarah Z Anoscopy: The patient [...] MD Colorectal Surgery Referring Provider: MANOJ FORBES [[id number]] Allergies As of Date: 02/23/2024 Noted Allergy Reaction CIPROFLOXACIN 05/31/2013 2 - Rash 16 - Unknown NITROFURANTOIN MONOHYD/M-CRYST 10/27/2022 14 - Other: See Comments 8 - GI Upset SULFAMETHOXAZOLE-TR IMETHOPRIM 05/31/2013 14 - Other: See Comments 2 - Rash Date Reviewed: 02/23/2024 Reviewed by: Sarah Marroquin OCCA - Fully Assessed Reason for Visit: New Patient [172] Hemorrhoids [75079] Rectal Bleeding [202] Primary Visit Diagnosis:Hemorrhoi ds, [...] Status:Closed by FUNMILAYO ODELL on 02/25/24 Normal [facility] CBC AUTO DIFFon 08-23-2022 BASO # 0.0 103/ul Normal 0.0-0.1 [facility] Comment on above: Performed By: #### I NIKI DE LA TORRE #### [facility] [address] [address] [address] Ryann Pearce Basophils/100 WBC (Bld) 1.0 % Normal 0.2-2.0 [facility] Comment on above: Performed By: #### I WIL, VITAD #### [facility] [address] [place] [address] Dr. Ryann Pearce EO # 0.2 103/ul Normal 0.0-0.7 [facility] Comment on above: Performed By: #### I WIL, VITAD #### [facility] [address] [place] [address] Dr. Ryann Pearce Eosinophils/100 WBC (Bld) 3.8 % Normal 0.9-7.0 [facility] Comment on above: Performed By: #### I WIL VITAD #### [facility] [address] [place] [address] Dr. Ryann Pearce Erythrocyte distribution width (RBC) [Ratio] 12.1 % Normal 11.0-15.0 [facility] Comment on above: Performed By: #### I WIL VITAD #### [facility] [address] [place] [address] Dr. Ryann Pearce Hematocrit (Bld) [Volume fraction] 35.5 % Critically low 36.0-48.0 [facility] Comment on above: Performed By: #### Mike DE LA TORRE VITAD #### [facility] [address] [place] [address] Dr. Ryann Pearce Hemoglobin (Bld) [Mass/Vol] 11.7 g/dL Critically low 12.0-16.0 [facility] Comment on above: Performed By: #### Mike DE LA TORRE VITAD #### [facility] [address] [place] [address] Dr. Ryann Pearce IG # 0.01 10e3/ul Normal 0.00-0.03 [facility] Comment on above: Performed By: #### I WIL VITAD #### [facility] [address] [place] [address] Dr. Ryann Pearce IG % 0.3 % Normal 0.0-0.5 [facility] Comment on above: Performed By: #### Mike DE LA TORRE VITAD #### [facility] [address] [place] [address] Dr. Ryann Pearce LYMPH # 1.2 103/ul Normal 1.2-3.8 [facility] Comment on above: Performed By: #### Mike DE LA TORRE, VITAD #### [facility] [address] [place] [address] Dr. Ryann Pearce Lymphocytes/100 WBC (Bld) 31.5 % Normal 20.5-60.0 [facility] Comment on above: Performed By: #### I WIL, VITAD #### [facility] [address] [place] [address] Dr. Ryann Pearce MANUAL DIFF REQ NO Normal [facility] Comment on above: Performed By: #### I WIL VITAD #### [facility] [address] [place] [address] Dr. Ryann Pearce MCH (RBC) [Entitic mass] 29.5 pg Normal 26.7-34.0 [facility] Comment on above: Performed By: #### Mike DE LA TORRE VITAD #### [facility] [address] [place] [address] Dr. Ryann Pearce MCHC (RBC) [Mass/Vol] 33.0 g/dL Normal 29.9-35.2 [facility] Comment on above: Performed By: #### Mike DE LA TORRE VITAD #### [facility] [address] [place] [address] Dr. Ryann Pearce MCV (RBC) [Entitic vol] 89.6 fL Normal 81.0-99.0 [facility] Comment on above: Performed By: #### Mike DE LA TORRE VITAD #### [facility] [address] [place] [address] Dr. Ryann Pearce MONO # 0.5 103/ul Normal 0.3-0.8 [facility] Comment on above: Performed By: #### Mike DE LA TORRE VITAD #### [facility] [address] [place] [address] Dr. Ryann Pearce Monocytes/100 WBC (Bld) 13.2 % Critically high 1.7-12. 0 [facility] Comment on above: Performed By: #### Mike DE LA TORRE VITAD #### [facility] [address] [place] [address] Dr. Ryann Pearce NEUT # 2.0 103/ul Normal 1.4-6.5 [facility] Comment on above: Performed By: #### I WIL, VITAD #### [facility] [address] [place] [address] Dr. Ryann Pearce Neutrophils/100 WBC (Bld) 50.2 % Normal 43.0-75.0 [facility] Comment on above: Performed By: #### I WIL, VITAD #### [facility] [address] [place] [address] Dr. Ryann Pearce Platelet mean volume (Bld) [Entitic vol] 8.9 fL Critically low 9.5-13.5 [facility] Comment on above: Performed By: #### I WIL VITAD #### [facility] [address] [place] [address] Dr. Ryann Pearce PLT 253 103/ul Normal 150-450 [facility] Comment on above: Performed By: #### I WIL VITAD #### [facility] [address] [place] [address] Dr. Ryann Pearce RBC 3.96 106/ul Critically low 4.20-5.40 [facility] Comment on above: Performed By: #### I WIL VITAD #### [facility] [address] [place] [address] Dr. Ryann Pearce WBC 3.9 103/ul Critically low 4.0-11.0 [facility] Comment on above: Performed By: #### I WIL VITAD #### [facility] [address] [place] [address] Dr. Ryann Pearce PROF 14(COMP METB)on 023 Albumin [Mass/Vol] 3.3 g/dL Critically low 3.4-5.0 [facility] Comment on above: Performed By: #### Mike DE LA TORRE VITAD #### [facility] [address] [place] [address] Dr. Raynn Pearce Albumin/Globulin [Mass ratio] 1.0 {ratio} Normal [facility] Comment on above: Performed By: #### I WIL, VITAD #### [facility] [address] [address] [address] Ryann Pearce ALP [Catalytic activity/Vol] 65 U/L Normal 46-116 [facility] Comment on above: Performed By: #### I WIL, VITAD #### [facility] [address] [address] [address] Ryann Pearce ALT [Catalytic activity/Vol] 30 U/L Normal 14-59 [facility] Comment on above: Performed By: #### I WIL, VITAD #### [facility] [address] [address] [address] Ryann Pearce Anion gap [Moles/Vol] 10.0 mmol/L Normal [facility] Comment on above: Performed By: #### I WIL, VITAD #### [facility] [address] [place] [address] Dr. Ryann Pearce AST [Catalytic activity/Vol] 26 U/L Normal 15-37 [facility] Comment on above: Performed By: #### I WIL, VITAD #### [facility] [address] [address] [address] Ryann Pearce Bilirubin [Mass/Vol] 0.4 mg/dL Normal 0.2-1.0 [facility] Comment on above: Performed By: #### I WIL, VITAD #### [facility] [address] [address] [address] Ryann Pearce Calcium [Mass/Vol] 8.8 mg/dL Normal 8.5-10.1 [facility] Comment on above: Performed By: #### I WIL, VITAD #### [facility] [address] [address] [address] Ryann Pearce Chloride [Moles/Vol] 105 mmol/L Normal 98-107 [facility] Comment on above: Performed By: #### I WIL, VITAD #### [facility] [address] [address] [address] Ryann Pearce CO2 [Moles/Vol] 30.1 mmol/L Normal 21.0-32.0 [facility] Comment on above: Performed By: #### I WIL, VITAD #### [facility] [address] [address] [address] Ryann Pearce Creatinine [Mass/Vol] 0.90 mg/dL Normal 0.55-1.02 [facility] Comment on above: Performed By: #### I WIL, VITAD #### [facility] [address] [address] [address] Ryann Pearce EGFR-AF BOLIVIAN >60 Normal >=60 [facility] Comment on above: Performed By: #### I WIL, VITAD #### [facility] [address] [address] [address] Ryann Pearce EGFR-NON AF BOLIVIAN >60 Normal >=60 [facility] Comment on above: Performed By: #### I WIL, VITAD #### [facility] [address] [address] [address] Ryann Pearce Globulin (S) [Mass/Vol] 3.3 g/dL Normal [facility] Comment on above: Performed By: #### I WIL, VITAD #### [facility] [address] [address] [address] Ryann Pearce Glucose [Mass/Vol] 100 mg/dL Normal 74-106 [facility] Comment on above: Performed By: #### I WIL, VITAD #### [facility] [address] [address] [address] Ryann Pearce Potassium [Moles/Vol] 4.1 mmol/L Normal 3.5-5.1 [facility] Comment on above: Performed By: #### I WIL, VITAD #### [facility] [address] [address] [address] Ryann Pearce Protein [Mass/Vol] 6.6 g/dL Normal 6.4-8.2 [facility] Comment on above: Performed By: #### I WIL, VITAD #### [facility] [address] [address] [address] Ryann Pearce Sodium [Moles/Vol] 141 mmol/L Normal 136-145 [facility] Comment on above: Performed By: #### I WIL, VITAD #### [facility] [address] [place] [address] Dr. Ryann Pearce Urea nitrogen [Mass/Vol] 13.0 mg/dL Normal 7.0-18.0 [facility] Comment on above: Performed By: #### Mike DE LA TORRE, VITAD #### [facility] [address] [place] [address] Dr. Ryann Pearce Urea nitrogen/Creatinine [Mass ratio] 14.4 mg/mg Normal [facility] Comment on above: Performed By: #### I WIL, VITAD #### [facility] [address] [place] [address] Dr. Ryann Pearce CBC AUTO DIFFon 06-06-2022 BASO # 0.0 103/ul Normal 0.0-0.1 [facility] Comment on above: Performed By: #### Mike DE LA TORRE VITAD #### [facility] [address] [place] [address] Dr. Ryann Pearce Basophils/100 WBC (Bld) 1.2 % Normal 0.2-2.0 [facility] Comment on above: Performed By: #### I WIL VITAD #### [facility] [address] [place] [address] Dr. Ryann Pearce EO # 0.1 103/ul Normal 0.0-0.7 [facility] Comment on above: Performed By: #### Mike DE LA TORRE, VITAD #### [facility] [address] [place] [address] Dr. Ryann Pearce Eosinophils/100 WBC (Bld) 3.3 % Normal 0.9-7.0 [facility] Comment on above: Performed By: #### Mike DE LA TORRE, VITAD #### [facility] [address] [place] [address] Dr. Ryann Pearce Erythrocyte distribution width (RBC) [Ratio] 12.5 % Normal 11.0-15.0 [facility] Comment on above: Performed By: #### Mike DE LA TORRE, VITAD #### [facility] [address] [place] [address] Dr. Ryann Pearce Hematocrit (Bld) [Volume fraction] 38.7 % Normal 36.0-48.0 [facility] Comment on above: Performed By: #### I WIL, VITAD #### [facility] [address] [place] [address] Dr. Ryann Pearce Hemoglobin (Bld) [Mass/Vol] 12.8 g/dL Normal 12.0-16.0 [facility] Comment on above: Performed By: #### Mike DE LA TORRE, VITAD #### [facility] [address] [place] [address] Dr. Ryann Pearce IG # 0.01 10e3/ul Normal 0.00-0.03 [facility] Comment on above: Performed By: #### Mike DE LA TORRE VITAD #### [facility] [address] [place] [address] Dr. Ryann Pearce IG % 0.3 % Normal 0.0-0.5 [facility] Comment on above: Performed By: #### Mike DE LA TORRE VITAD #### [facility] [address] [place] [address] Dr. Ryann Pearce LYMPH # 1.1 103/ul Critically low 1.2-3.8 [facility] Comment on above: Performed By: #### Mike DE LA TORRE VITAD #### [facility] [address] [place] [address] Dr. Ryann Pearce Lymphocytes/100 WBC (Bld) 32.0 % Normal 20.5-60.0 [facility] Comment on above: Performed By: #### Mike DE LA TORRE, VITAD #### [facility] [address] [place] [address] Dr. Ryann Pearce MANUAL DIFF REQ NO Normal [facility] Comment on above: Performed By: #### Mike DE LA TORRE, VITAD #### [facility] [address] [place] [address] Dr. Ryann Pearce MCH (RBC) [Entitic mass] 29.6 pg Normal 26.7-34.0 [facility] Comment on above: Performed By: #### Mike DE LA TORRE VITAD #### [facility] [address] [place] [address] Dr. Ryann Pearce MCHC (RBC) [Mass/Vol] 33.1 g/dL Normal 29.9-35.2 [facility] Comment on above: Performed By: #### I WIL, VITAD #### [facility] [address] [place] [address] Dr. Ryann Pearce MCV (RBC) [Entitic vol] 89.4 fL Normal 81.0-99.0 [facility] Comment on above: Performed By: #### I WIL, VITAD #### [facility] [address] [place] [address] Dr. Ryann Pearce MONO # 0.4 103/ul Normal 0.3-0.8 [facility] Comment on above: Performed By: #### I WIL, VITAD #### [facility] [address] [place] [address] Dr. Ryann Pearce Monocytes/100 WBC (Bld) 11.1 % Normal 1.7-12.0 [facility] Comment on above: Performed By: #### I WIL, VITAD #### [facility] [address] [place] [address] Dr. Ryann Pearce NEUT # 1.7 103/ul Normal 1.4-6.5 [facility] Comment on above: Performed By: #### I WIL, VITAD #### [facility] [address] [place] [address] Dr. Ryann Pearce Neutrophils/100 WBC (Bld) 52.1 % Normal 43.0-75.0 [facility] Comment on above: Performed By: #### I WIL, VITAD #### [facility] [address] [place] [address] Dr. Ryann Pearce Platelet mean volume (Bld) [Entitic vol] 9.3 fL Critically low 9.5-13.5 [facility] Comment on above: Performed By: #### I WIL, VITAD #### [facility] [address] [place] [address] Dr. Ryann Pearce PLT 255 103/ul Normal 150-450 [facility] Comment on above: Performed By: #### I WIL, VITAD #### [facility] [address] [address] [address] Ryann Pearce RBC 4.33 106/ul Normal 4.20-5.40 [facility] Comment on above: Performed By: #### I WIL, VITAD #### [facility] [address] [address] [address] Ryann Pearce WBC 3.3 103/ul Critically low 4.0-11.0 [facility] Comment on above: Performed By: #### I WIL, VITAD #### [facility] [address] [address] [address] Ryann Pearce FREE THYROXINE INDEX T7on FTI 2.96 Normal 1.30-4.50 [facility] Comment on above: Performed By: #### T SH, LIPID, T7, CMP #### [facility] [address] [place] [address] Dr. Ryann Pearce T3U 34.0 % Normal 30.0-39.0 [facility] Comment on above: Performed By: #### T SH, LIPID, T7, CMP #### [facility] [address] [address] [address] Ryann Pearce T4 [Mass/Vol] 8.70 ug/dL Normal 4.80-13.90 [facility] Comment on above: Performed By: #### T SH, LIPID, T7, CMP #### [facility] [address] [place] [address] Dr. Ryann Pearce GLYCOHEMOGLOBIN A1Con 2021 ADA RECOMMENDATION SEE BELOW Normal [facility] Comment on above: Result Comment: ADA RECOMMENDED LIMIT 4.0 - 6.0 ADA THERAPEUTIC TARGET < 7.0 ACTION SUGGESTED > 7.0 Performed By: #### A 1C #### [facility] [address] [place] [address] Dr. Ryann Pearce Glucose [Mass/Vol] 105 mg/dL Normal [facility] Comment on above: Performed By: #### A 1C #### [facility] [address] [place] [address] Dr. Ryann Pearce HbA1c (Bld) [Mass fraction] 5.3 % Normal 4.5-6.2 [facility] Comment on above: Performed By: #### A 1C #### [facility] [address] [place] [address] Dr. Ryann Pearce IRONon 06-06-2022 Iron [Mass/Vol] 104.0 ug/dL Normal 50.0-170.0 [facility] Comment on above: Performed By: #### I NIKI DE LA TORRE #### [facility] [address] [place] [address] Dr. Ryann Pearce LIPID PROFILEon 06-06-2022 CHOL-HDL RATIO NORM SEE BELOW Normal [facility] Comment on above: Result Comment: 3.3 - 4.4 LOW RISK 4.4 - 7.1 AVERAGE RISK 7.1 - 11.0 MODERATE RISK >11.0 HIGH RISK Performed By: #### T SH, LIPID, T7, CMP #### [facility] [address] [place] [address] Dr. Ryann Pearce Cholesterol [Mass/Vol] 160 mg/dL Normal <=200 [facility] Comment on above: Performed By: #### T SH, LIPID, T7, CMP #### [facility] [address] [place] [address] Dr. Ryann Pearce Cholesterol in HDL [Mass/Vol] 75 mg/dL Critically high 40-60 [facility] Comment on above: Performed By: #### T SH, LIPID, T7, CMP #### [facility] [address] [place] [address] Dr. Ryann Pearce Cholesterol in LDL [Mass/Vol] 66.6 mg/dL Normal [facility] Comment on above: Performed By: #### T SH, LIPID, T7, CMP #### [facility] [address] [place] [address] Dr. Ryann Pearce Cholesterol.total/Mona sterol in HDL [Mass ratio] 2.1 {ratio} Normal [facility] Comment on above: Performed By: #### T SH, LIPID, T7, CMP #### [facility] [address] [place] [address] Dr. Ryann Pearce HDL NORMAL > or = 60 mg/dl - LOW CARDIOVASCULAR RISK <40 mg/dl - HIGH CARDIOVASCULAR RISK Normal [facility] Comment on above: Performed By: #### T SH, LIPID, T7, CMP #### [facility] [address] [address] [address] Ryann Pearce LDL CALC NORMAL SEE BELOW Normal [facility] Comment on above: Result Comment: <100 mg/dl OPTIMAL 100 - 129 mg/dl NEAR OR ABOVE OPTIMAL 130 - 159 mg/dl BORDERLINE HIGH 160 - 189 mg/dl HIGH >190 mg/dl VERY HIGH Performed By: #### T SH, LIPID, T7, CMP #### [facility] [address] [address] [address] Ryann Pearce Triglyceride [Mass/Vol] 92 mg/dL Normal <=150 [facility] Comment on above: Performed By: #### T SH, LIPID, T7, CMP #### [facility] [address] [address] [address] Ryann Pearce VLDL CALC 18.4 mg/dL Normal [facility] Comment on above: Performed By: #### T SH, LIPID, T7, CMP #### [facility] [address] [address] [address] Ryann Pearce PROF 14(COMP METB)on 022 Albumin [Mass/Vol] 3.4 g/dL Normal 3.4-5.0 [facility] Comment on above: Performed By: #### T SH, LIPID, T7, CMP #### [facility] [address] [address] [address] Ryann Pearce Albumin/Globulin [Mass ratio] 1.0 {ratio} Normal [facility] Comment on above: Performed By: #### T SH, LIPID, T7, CMP #### [facility] [address] [address] [address] Ryann Pearce ALP [Catalytic activity/Vol] 71 U/L Normal 46-116 [facility] Comment on above: Performed By: #### T SH, LIPID, T7, CMP #### [facility] [address] [place] [address] Dr. Ryann Pearce ALT [Catalytic activity/Vol] 19 U/L Normal 14-59 [facility] Comment on above: Performed By: #### T SH, LIPID, T7, CMP #### [facility] [address] [address] [address] Ryann Pearce Anion gap [Moles/Vol] 7.8 mmol/L Normal [facility] Comment on above: Performed By: #### T SH, LIPID, T7, CMP #### [facility] [address] [address] [address] Ryann Pearce AST [Catalytic activity/Vol] 21 U/L Normal 15-37 [facility] Comment on above: Performed By: #### T SH, LIPID, T7, CMP #### [facility] [address] [place] [address] Dr. Ryann Pearce Bilirubin [Mass/Vol] 0.6 mg/dL Normal 0.2-1.0 [facility] Comment on above: Performed By: #### T SH, LIPID, T7, CMP #### [facility] [address] [place] [address] Dr. Ryann Pearce Calcium [Mass/Vol] 8.7 mg/dL Normal 8.5-10.1 [facility] Comment on above: Performed By: #### T SH, LIPID, T7, CMP #### [facility] [address] [place] [address] Dr. Ryann Pearce Chloride [Moles/Vol] 103 mmol/L Normal 98-107 [facility] Comment on above: Performed By: #### T SH, LIPID, T7, CMP #### [facility] [address] [place] [address] Dr. Ryann Pearce CO2 [Moles/Vol] 34.4 mmol/L Critically high 21.0-32.0 [facility] Comment on above: Performed By: #### T SH, LIPID, T7, CMP #### [facility] [address] [place] [address] Dr. Ryann Pearce Creatinine [Mass/Vol] 0.75 mg/dL Normal 0.55-1.02 [facility] Comment on above: Performed By: #### T SH, LIPID, T7, CMP #### [facility] [address] [address] [address] Ryann Pearce EGFR-AF BOLIVIAN >60 Normal >=60 [facility] Comment on above: Performed By: #### T SH, LIPID, T7, CMP #### [facility] [address] [address] [address] Ryann Pearce EGFR-NON AF BOLIVIAN >60 Normal >=60 [facility] Comment on above: Performed By: #### T SH, LIPID, T7, CMP #### [facility] [address] [address] [address] Ryann Pearce Globulin (S) [Mass/Vol] 3.5 g/dL Normal [facility] Comment on above: Performed By: #### T SH, LIPID, T7, CMP #### [facility] [address] [place] [address] Dr. Raynn Pearce Glucose [Mass/Vol] 95 mg/dL Normal 74-106 [facility] Comment on above: Performed By: #### T SH, LIPID, T7, CMP #### [facility] [address] [address] [address] Ryann Pearce Potassium [Moles/Vol] 4.2 mmol/L Normal 3.5-5.1 [facility] Comment on above: Performed By: #### T SH, LIPID, T7, CMP #### [facility] [address] [address] [address] Ryann Pearce Protein [Mass/Vol] 6.9 g/dL Normal 6.4-8.2 [facility] Comment on above: Performed By: #### T SH, LIPID, T7, CMP #### [facility] [address] [address] [address] Ryann Pearce Sodium [Moles/Vol] 141 mmol/L Normal 136-145 [facility] Comment on above: Performed By: #### T SH, LIPID, T7, CMP #### [facility] [address] [address] [address] Ryann Pearce Urea nitrogen [Mass/Vol] 10.0 mg/dL Normal 7.0-18.0 [facility] Comment on above: Performed By: #### T SH, LIPID, T7, CMP #### [facility] [address] [address] [address] Ryann Pearce Urea nitrogen/Creatinine [Mass ratio] 13.3 mg/mg Normal [facility] Comment on above: Performed By: #### T SH, LIPID, T7, CMP #### [facility] [address] [address] [address] Ryann Pearce TSHon 06-06-2022 TSH 0.151 uIU/mL Critically low 0.358-3.740 [facility] Comment on above: Performed By: #### T SH, LIPID, T7, CMP #### [facility] [address] [address] [address] Ryann Pearce VITAMIN D 25 OHon 06-06-2022 VIT D 25-OH 75.4 ng/mL Normal [facility] Comment on above: Performed By: #### I WIL VITAD #### [facility] [address] [place] [address] Dr. Ryann Pearce VIT D RANGES SEE BELOW Normal [facility] Comment on above: Result Comment: <20 ng/mL Vit D deficient 20 - <30 ng/mL Vit D insufficient 30 - 100 ng/mL Vit D sufficient >100 ng/mL Potential Toxicity Performed By: #### I WIL VITAD #### [facility] [address] [place] [address] Dr. Ryann Pearce MG MAMM SCREEN 3D KRISTINA CADon 05-11-2022 MG MAMM SCREEN 3D KRISTINA CAD Patient: BILLIE YEBOAH Exam Date: 05/11/2022 : 1945 Gender:F Ordering : DR GISELLA CHAMORRO . Admission #: [id number] Family : Order #: [id number] CLICK HERE TO VIEW EXAM RADIOLOGY REPORT [...] breast cancer at age 80. LOCATION: [facility] BREAST COMPOSITION: Scattered areas fibroglandular density. [...] MD on 05/11/2022 at 12:45 Normal [facility] CBC AUTO DIFFon 02-21-2022 BASO # 0.0 103/ul Normal 0.0-0.1 [facility] [facility] Comment on above: Performed By: #### NIKI MORALES #### [facility] [address] [place] [address] Dr. Ryann Pearce Basophils/100 WBC (Bld) 0.5 % Normal 0.2-2.0 [facility] Comment on above: Performed By: #### NIKI MORALES #### [facility] [address] [place] [address] Dr. Ryann Pearce EO # 0.2 103/ul Normal 0.0-0.7 [facility] Comment on above: Performed By: #### BRET MORALESAD #### [facility] [address] [place] [address] Dr. Ryann Pearce Eosinophils/100 WBC (Bld) 3.9 % Normal 0.9-7.0 [facility] Comment on above: Performed By: #### NIKI MORALES #### [facility] [address] [place] [address] Dr. Ryann Pearce Erythrocyte distribution width (RBC) [Ratio] 12.8 % Normal 11.0-15.0 [facility] Comment on above: Performed By: #### NIKI MORALES #### [facility] [address] [place] [address] Dr. Ryann Pearce Hematocrit (Bld) [Volume fraction] 36.5 % Normal 36.0-48.0 [facility] Comment on above: Performed By: #### I WIL, VITAD #### [facility] [address] [place] [address] Dr. Ryann Pearce Hemoglobin (Bld) [Mass/Vol] 11.9 g/dL Critically low 12.0-16.0 [facility] Comment on above: Performed By: #### I WIL, VITAD #### [facility] [address] [place] [address] Dr. Ryann Pearce IG # 0.01 10e3/ul Normal 0.00-0.03 [facility] Comment on above: Performed By: #### I WIL, VITAD #### [facility] [address] [place] [address] Dr. Ryann Pearce IG % 0.2 % Normal 0.0-0.5 [facility] Comment on above: Performed By: #### I WIL, VITAD #### [facility] [address] [place] [address] Dr. Ryann Pearce LYMPH # 1.1 103/ul Critically low 1.2-3.8 [facility] Comment on above: Performed By: #### I WIL, VITAD #### [facility] [address] [place] [address] Dr. Ryann Pearce Lymphocytes/100 WBC (Bld) 25.5 % Normal 20.5-60.0 [facility] Comment on above: Performed By: #### Mike DE LA TORRE, VITAD #### [facility] [address] [place] [address] Dr. Ryann Pearce MANUAL DIFF REQ NO Normal [facility] Comment on above: Performed By: #### I WIL, VITAD #### [facility] [address] [place] [address] Dr. Ryann Pearce MCH (RBC) [Entitic mass] 29.6 pg Normal 26.7-34.0 [facility] Comment on above: Performed By: #### Mike DE LA TORRE, VITAD #### [facility] [address] [place] [address] Dr. yRann Pearce MCHC (RBC) [Mass/Vol] 32.6 g/dL Normal 29.9-35.2 [facility] Comment on above: Performed By: #### I WIL, VITAD #### [facility] [address] [place] [address] Dr. Ryann Pearce MCV (RBC) [Entitic vol] 90.8 fL Normal 81.0-99.0 [facility] Comment on above: Performed By: #### I WIL, VITAD #### [facility] [address] [place] [address] Dr. Ryann Pearce MONO # 0.4 103/ul Normal 0.3-0.8 [facility] Comment on above: Performed By: #### Mike DE LA TORRE, VITAD #### [facility] [address] [place] [address] Dr. Ryann Pearce Monocytes/100 WBC (Bld) 10.4 % Normal 1.7-12.0 [facility] Comment on above: Performed By: #### Mike DE LA TORRE, VITAD #### [facility] [address] [place] [address] Dr. Ryann Pearce NEUT # 2.5 103/ul Normal 1.4-6.5 [facility] Comment on above: Performed By: #### Mike DE LA TORRE, VITAD #### [facility] [address] [place] [address] Dr. Ryann Pearce Neutrophils/100 WBC (Bld) 59.5 % Normal 43.0-75.0 [facility] Comment on above: Performed By: #### Mike DE LA TORRE, VITAD #### [facility] [address] [place] [address] Dr. Ryann Pearce Platelet mean volume (Bld) [Entitic vol] 9.1 fL Critically low 9.5-13.5 [facility] Comment on above: Performed By: #### Mike DE LA TORRE, VITAD #### [facility] [address] [place] [address] Dr. Ryann Pearce PLT 283 103/ul Normal 150-450 [facility] Comment on above: Performed By: #### I WIL, VITAD #### [facility] [address] [address] [address] Ryann Pearce RBC 4.02 106/ul Critically low 4.20-5.40 [facility] Comment on above: Performed By: #### I WIL, VITAD #### [facility] [address] [address] [address] Ryann Pearce WBC 4.2 103/ul Normal 4.0-11.0 [facility] Comment on above: Performed By: #### I WIL, VITAD #### [facility] [address] [place] [address] Dr. Ryann Pearce PROF 14(COMP METB)on 022 Albumin [Mass/Vol] 3.5 g/dL Normal 3.4-5.0 [facility] Comment on above: Performed By: #### I WIL VITAD #### [facility] [address] [place] [address] Dr. Ryann Pearce Albumin/Globulin [Mass ratio] 1.0 {ratio} Normal [facility] Comment on above: Performed By: #### I WIL, VITAD #### [facility] [address] [place] [address] Dr. Ryann Pearce ALP [Catalytic activity/Vol] 68 U/L Normal 46-116 [facility] Comment on above: Performed By: #### I WIL VITAD #### [facility] [address] [place] [address] Dr. Ryann Pearce ALT [Catalytic activity/Vol] 22 U/L Normal 14-59 [facility] Comment on above: Performed By: #### I WIL, VITAD #### [facility] [address] [place] [address] Dr. Ryann Pearce Anion gap [Moles/Vol] 11.8 mmol/L Normal [facility] Comment on above: Performed By: #### I WIL, VITAD #### [facility] [address] [place] [address] Dr. Ryann eParce AST [Catalytic activity/Vol] 21 U/L Normal 15-37 [facility] Comment on above: Performed By: #### I WIL, VITAD #### [facility] [address] [place] [address] Dr. Ryann Pearce Bilirubin [Mass/Vol] 0.5 mg/dL Normal 0.2-1.0 [facility] Comment on above: Performed By: #### I WIL, VITAD #### [facility] [address] [place] [address] Dr. Ryann Pearce Calcium [Mass/Vol] 8.9 mg/dL Normal 8.5-10.1 [facility] Comment on above: Performed By: #### I WIL, VITAD #### [facility] [address] [place] [address] Dr. Ryann Pearce Chloride [Moles/Vol] 104 mmol/L Normal 98-107 [facility] Comment on above: Performed By: #### I WIL, VITAD #### [facility] [address] [place] [address] Dr. Ryann Pearce CO2 [Moles/Vol] 29.1 mmol/L Normal 21.0-32.0 [facility] Comment on above: Performed By: #### I WIL, VITAD #### [facility] [address] [place] [address] Dr. Ryann Pearce Creatinine [Mass/Vol] 0.66 mg/dL Normal 0.55-1.02 [facility] Comment on above: Performed By: #### Mike DE LA TORRE VITAD #### [facility] [address] [place] [address] Dr. Ryann Pearce EGFR-AF BOLIVIAN >60 Normal >=60 [facility] Comment on above: Performed By: #### I WIL, VITAD #### [facility] [address] [place] [address] Dr. Ryann Pearce EGFR-NON AF BOLIVIAN >60 Normal >=60 [facility] Comment on above: Performed By: #### Mike DE LA TORRE, VITAD #### [facility] [address] [place] [address] Dr. Ryann Pearce Globulin (S) [Mass/Vol] 3.4 g/dL Normal [facility] Comment on above: Performed By: #### Mike DE LA TORRE VITAD #### [facility] [address] [place] [address] Dr. Ryann Pearce Glucose [Mass/Vol] 106 mg/dL Normal 74-106 [facility] Comment on above: Performed By: #### I WIL, VITAD #### [facility] [address] [place] [address] Dr. Ryann Pearce Potassium [Moles/Vol] 3.9 mmol/L Normal 3.5-5.1 [facility] Comment on above: Performed By: #### I WIL VITAD #### [facility] [address] [place] [address] Dr. Ryann Pearce Protein [Mass/Vol] 6.9 g/dL Normal 6.4-8.2 [facility] Comment on above: Performed By: #### Mike DE LA TORRE VITAD #### [facility] [address] [place] [address] Dr. Ryann Pearce Sodium [Moles/Vol] 141 mmol/L Normal 136-145 [facility] Comment on above: Performed By: #### Mike DE LA TORRE VITAD #### [facility] [address] [place] [address] Dr. Ryann Pearce Urea nitrogen [Mass/Vol] 14.0 mg/dL Normal 7.0-18.0 [facility] Comment on above: Performed By: #### Mike DE LA TORRE VITAD #### [facility] [address] [place] [address] Dr. Ryann Pearce Urea nitrogen/Creatinine [Mass ratio] 21.2 mg/mg Normal [facility] Comment on above: Performed By: #### Mike DE LA TORRE VITAD #### [facility] [address] [place] [address] Dr. Ryann Pearce XR knee RT 3Von 02-02-2022 XR knee RT 3V [facility] [employer] Other XR knee RT 3V [facility] [employer] Other XR knee RT 3V [address] [facility] [employer] Other XR knee RT 3[place] [address] [facility] [employer] Other XR knee RT 3V XRay Report [employer] Other XR knee RT 3V Signed [employer] Other XR knee RT 3V Patient: Billie Yeboah MR#: [id number] [employer] Other XR knee RT 3V [id number] [employer] Other XR knee RT 3V : 1945 Acct:[id number] [employer] Other XR knee RT 3V Age/Sex: 76 / F ADM Date: 02/02/22 [employer] Other XR knee RT 3V Loc: [facility] Room: Type: [facility] [employer] Other XR knee RT 3V Attending Dr: Sydney Oswald II, MD [employer] Other XR knee RT 3V Copies to: Sydney Oswald MD [employer] Other XR knee RT 3V Ordering Provider: Sydney Oswald MD [employer] Other XR knee RT 3V Date of Service: 02/02/22 [employer] Other XR knee RT 3V XR/XR knee RT 3V - NOT FOR ER USE: History of total right knee [employer] Other XR knee RT 3V replacement [employer] Other XR knee RT 3V RIGHT KNEE - 3 views [employer] Other XR knee RT 3V CLINICAL HISTORY: Follow-up right total knee arthroplasty [employer] Other XR knee RT 3V COMPARISON: Right knee 12/20/2021 [employer] Other XR knee RT 3V FINDINGS: [employer] Other XR knee RT 3V Right knee prosthesis without radiographic complication. No acute bony process. [employer] Other XR knee RT 3V XR/XR knee RT 3V - NOT FOR ER USE [employer] Other XR knee RT 3V IMPRESSION: [employer] Other XR knee RT 3V NO EVIDENCE OF HARDWARE COMPLICATION. [employer] Other XR knee RT 3V Impression dictated by: Migue Groves Jr., D.OSun02/02/2022 4:27 PM [employer] Other XR knee RT 3V Dictation Location: [place] [address] [employer] Other XR knee RT 3V Transcribed By: PWS 02/02/22 [facility] [employer] Other XR knee RT 3V Dictated By: Migue Groves Jr, DO 02/02/22 [facility] [employer] Other XR knee RT 3V Signed By: [employer] Other XR knee RT 3V 02/02/22 [facility] [employer] Other COVID-19 Positive/NegativeOr dered By: Sydney Oswald on 12-17-2021 SARS-CoV-2 (COVID-19) N gene BRAULIO+probe Ql (Resp) Negative Negative [facility] Comment on above: Testing for SARS-CoV -2 by RT-PCR This test was developed and its performance characteristics determined by [employer] and validated at the [facility]. This test has not been FDA [...] (Urine sed) [#/Area] 1-2 [HPF] 0-4 [facility] Automated leukocytes count i n urine sediment (number/area)Ordered By: Sydney Oswald on 12-07-2021 WBC Auto (Urine sed) [#/Area] None seen [HPF] 0-4 [facility] Basophils Auto (Bld) [#/Vol] Ordered By: Sydney Oswald on 12-07-2021 Basophils (Bld) [#/Vol] 0.0 10*3/uL 0.0-0.2 [facility] Basophils/100 WBC Auto (Bld) Ordered By: Sydney Oswald on 12-07-2021 Basophils/100 WBC (Bld) 0.9 % . [facility] Bilirubin Test strip Ql (U)O rdered By: Sydney Oswald on 12-07-2021 Bilirubin Ql (U) Negative Negative [facility] Blood hemoglobin measurement (mass/volume)Ordered By: Sydney Oswald on 12-07-2021 Hemoglobin (Bld) [Mass/Vol] 13.1 g/dL 11.8-15.4 [facility] Blood leukocytes automated c ount (number/volume)Ordered By: Sydney Oswald on 12-07-2021 WBC (Bld) [#/Vol] 3.8 10*3/uL 4.5-11.0 [facility] CT biopsyOrdered By: Sydney Oswald on 12-07-2021 CT biopsy 241 umol/L 0-285 [facility] Comment on above: Published reference interval for apparently healthy subjects between age 20 and 60 is 205 - 285 umol/L and in a poorly controlled diabetic population is 228 - 563 umol/L with a mean of 396 umol/L. Performed at: [facility] [id number] [employer] Teacher: Fortunato Garcia PhD, Phone: [phone] Color Auto (U)Ordered By: Xuan Oswald on 12-07-2021 Color (U) Yellow Yellow [facility] Creatinine and Glomerular fi ltration rate.predicted panel (S/P/Bld)Ordered By: Sydney Oswald on 12-07-2021 Creatinine [Mass/Vol] 0.86 mg/dL 0.44-1.03 [facility] Eosinophils Auto (Bld) [#/Vo l]Ordered By: Sydney Oswald on 12-07-2021 Eosinophils (Bld) [#/Vol] 0.1 10*3/uL 0.0-0.45 [facility] Eosinophils/100 WBC Auto (Bl d)Ordered By: Sydney Oswald on 12-07-2021 Eosinophils/100 WBC (Bld) 2.4 % . [facility] Erythrocyte distribution wid th Auto (RBC) [Ratio]Ordered By: Sydney Oswald on 12-07-2021 Erythrocyte distribution width (RBC) [Ratio] 12.5 % 11.9-15.3 [facility] Estimated glomerular filtrat ion rate (GFR) non- AmericanOrdered By: Sydney Oswald on 12-07-2021 GFR/1.73 sq M.predicted among non-blacks MDRD (S/P/Bld) [Vol rate/Area] > 60 mL/Min [facility] Hematocrit Auto (Bld) [Volum e fraction]Ordered By: Sydney Oswald on 12-07-2021 Hematocrit (Bld) [Volume fraction] 39.0 % 34.0-46.4 [facility] Ketones Auto test strip (U) [Mass/Vol]Ordered By: Sydney Oswald on 12-07-2021 Ketones (U) [Mass/Vol] Negative Negative Fi [facility] - Hematology and Cell countsOrdered By: Sydney Oswald on 12-07-2021 Nucleated RBC/100 WBC (Bld) [Ratio] 0.0 % 0-0.5 [facility] - UrinalysisOrder ed By: Sydney Oswald on 12-07-2021 Hyaline casts LM Ql (Urine sed) None seen [LPF] 0-8 [facility] Lymphocytes Auto (Bld) [#/Vo l]Ordered By: Sydney Oswald on 12-07-2021 Lymphocytes (Bld) [#/Vol] 1.0 10*3/uL 1.00-4.8 [facility] Lymphocytes/100 WBC Auto (Bl d)Ordered By: Sydney Oswald on 12-07-2021 Lymphocytes/100 WBC (Bld) 26.7 % . [facility] MCH Auto (RBC) [Entitic mass ]Ordered By: Sydney Oswald on 12-07-2021 MCH (RBC) [Entitic mass] 29.7 pg 24.7-34.3 [facility] MCHC Auto (RBC) [Mass/Vol]Or dered By: Sydney Oswald on 12-07-2021 MCHC (RBC) [Mass/Vol] 33.5 g/dL 32.0-35.0 [facility] MCV Auto (RBC) [Entitic vol] Ordered By: Sydney Oswald on 12-07-2021 MCV (RBC) [Entitic vol] 88.7 fL 80-100 [facility] Monocytes Auto (Bld) [#/Vol] Ordered By: Sydney Oswald on 12-07-2021 Monocytes (Bld) [#/Vol] 0.4 10*3/uL 0.0-0.8 [facility] Monocytes/100 WBC Auto (Bld) Ordered By: Sydney Oswald on 12-07-2021 Monocytes/100 WBC (Bld) 11.1 % . [facility] Neutrophils Auto (Bld) [#/Vo l]Ordered By: Sydney Oswald on 12-07-2021 Neutrophils (Bld) [#/Vol] 2.2 10*3/uL 1.8-7.7 [facility] Neutrophils/100 WBC Auto (Bl d)Ordered By: Sydney Oswald on 12-07-2021 Neutrophils/100 WBC (Bld) 58.9 % . [facility] Nitrite Test strip Ql (U)Ord ered By: Sydney Oswald on 12-07-2021 Nitrite Ql (U) Negative Negative [facility] No Panel InformationOrdered By: Sydney Oswald on 12-07-2021 Estimated GFR () > 60 mL/Min [facility] Comment on above: GFR estimated refere nce range: According to KDOQI guidelines, <60 ml/min/1.73m2 is sufficient to diagnose a patient with chronic kidney disease. Pharmacy Creatinine Clearance (Chem N/A [facility] Platelet mean volume Auto (B ld) [Entitic vol]Ordered By: Sydney Oswald on 12-07-2021 Platelet mean volume (Bld) [Entitic vol] 8.2 fL 6.3-10.7 [facility] Platelets Auto (Bld) [#/Vol] Ordered By: Sydney Oswald on 12-07-2021 Platelets (Bld) [#/Vol] 274 10*3/uL 150-450 [facility] Protein Auto test strip (U) [Mass/Vol]Ordered By: Sydney Oswald on 12-07-2021 Protein (U) [Mass/Vol] Negative Negative Fi [facility] RBC Auto (Bld) [#/Vol]Ordere d By: Sydney Oswald on 12-07-2021 RBC (Bld) [#/Vol] 4.40 10*6/uL 3.60-5.00 [facility] Serum or plasma calcium catalino urement (mass/volume)Ordered By: Sydney Oswald on 12-07-2021 Calcium [Mass/Vol] 9.3 mg/dL 8.2-10.2 [facility] Serum or plasma chloride juan surement (moles/volume)Ordered By: Sydney Oswald on 12-07-2021 Chloride [Moles/Vol] 99 mmol/L 95-114 [facility] Serum or plasma glucose catalino urement (mass/volume)Ordered By: Sydney Oswald on 12-07-2021 Glucose [Mass/Vol] 94 mg/dL 70-100 [facility] Comment on above: ADA recommended refe rence range Random Glucose Reference Range is dependent on time and content of last meal. Glucose of more than 200 mg/dL in a nonstressed, ambulatory subject supports the diagnosis of Diabetes Mellitus. Serum or plasma potassium me asurement (moles/volume)Ordered By: Sydney Oswald on 12-07-2021 Potassium [Moles/Vol] 4.4 mmol/L 3.5-5.1 [facility] Serum or plasma sodium measu rement (moles/volume)Ordered By: Sydney Oswald on 12-07-2021 Sodium [Moles/Vol] 139 mmol/L 136-146 [facility] Serum or plasma total carbon dioxide measurement (moles/volume)Ordered By: Sydney Oswald on 12-07-2021 CO2 [Moles/Vol] 26.7 mmol/L 22.0-30.0 [facility] Serum or plasma urea nitroge n measurement (mass/volume)Ordered By: Sydney Oswald on 12-07-2021 Urea nitrogen [Mass/Vol] 14 mg/dL 9-23 [facility] Specific gravity Auto test s trip (U) [Rel density]Ordered By: Sydney Oswald on 12-07-2021 Specific gravity (U) [Rel density] 1.010 1.001-1.030 [facility] Squamous epithelial cells de tection in urine sediment by light microscopyOrdered By: Sydney Oswald on 12-07-2021 Epithelial cells.squamous LM Ql (Urine sed) None seen [HPF] 0-2 [facility] Urine bacteria detection by automated methodOrdered By: Sydney Oswald on 12-07-2021 Bacteria Auto Ql (U) None seen None Seen [facility] Urine clarity by refractomet ry automatedOrdered By: Sydney Oswald on 12-07-2021 Clarity Refractometry automated (U) Clear Clear [facility] Urine glucose measurement by automated test strip (mass/volume)Ordered By: Sydney Oswald on 12-07-2021 Glucose Auto test strip (U) [Mass/Vol] Normal mg/dL Normal [facility] Urine hemoglobin detection b y automated test stripOrdered By: Sydney Oswald on 12-07-2021 Hemoglobin Auto test strip Ql (U) Negative Negative [facility] Urine leukocyte esterase det ection by automated test stripOrdered By: Sydney Oswald on 12-07-2021 Leukocyte esterase Auto test strip Ql (U) 1+ Negative [facility] Urobilinogen Auto test strip (U) [Mass/Vol]Ordered By: Sydney Oswald on 12-07-2021 Urobilinogen (U) [Mass/Vol] Normal mg/dL Normal [facility] pH Auto test strip (U)Ordere d By: Sydney Oswald on 12-07-2021 pH (U) 7.5 [pH] 5.0-9.0 [facility] CBC AUTO DIFFon 09-01-2021 BASO # 0.0 103/ul Normal 0.0-0.1 [facility] Comment on above: Performed By: #### Mike DE LA TORRE VITAD #### [facility] [address] [place] [address] Dr. Ryann Pearce Basophils/100 WBC (Bld) 0.8 % Normal 0.2-2.0 [facility] Comment on above: Performed By: #### Mike DE LA TORRE VITAD #### [facility] [address] [place] [address] Dr. Ryann Pearce EO # 0.2 103/ul Normal 0.0-0.7 [facility] Comment on above: Performed By: #### Mike DE LA TORRE VITAD #### [facility] [address] [place] [address] Dr. Ryann Pearce Eosinophils/100 WBC (Bld) 4.1 % Normal 0.9-7.0 [facility] Comment on above: Performed By: #### Mike DE LA TORRE VITAD #### [facility] [address] [place] [address] Dr. Ryann Pearce Erythrocyte distribution width (RBC) [Ratio] 12.5 % Normal 11.0-15.0 [facility] Comment on above: Performed By: #### Mike DE LA TORRE VITAD #### [facility] [address] [place] [address] Dr. Ryann Pearce Hematocrit (Bld) [Volume fraction] 37.6 % Normal 36.0-48.0 [facility] Comment on above: Performed By: #### I WIL, VITAD #### [facility] [address] [place] [address] Dr. Ryann Pearce Hemoglobin (Bld) [Mass/Vol] 12.3 g/dL Normal 12.0-16.0 [facility] Comment on above: Performed By: #### I WIL, VITAD #### [facility] [address] [place] [address] Dr. Ryann Pearce IG # 0.02 10e3/ul Normal 0.00-0.03 [facility] Comment on above: Performed By: #### I WIL, VITAD #### [facility] [address] [place] [address] Dr. Ryann Pearce IG % 0.5 % Normal 0.0-0.5 [facility] Comment on above: Performed By: #### I WIL, VITAD #### [facility] [address] [place] [address] Dr. Ryann Pearce LYMPH # 1.1 103/ul Critically low 1.2-3.8 [facility] Comment on above: Performed By: #### I WIL, VITAD #### [facility] [address] [place] [address] Dr. Ryann Pearce Lymphocytes/100 WBC (Bld) 29.0 % Normal 20.5-60.0 [facility] Comment on above: Performed By: #### I WIL, VITAD #### [facility] [address] [place] [address] Dr. Ryann Pearce MANUAL DIFF REQ NO Normal [facility] Comment on above: Performed By: #### I WIL, VITAD #### [facility] [address] [place] [address] Dr. Ryann Pearce MCH (RBC) [Entitic mass] 30.5 pg Normal 26.7-34.0 [facility] Comment on above: Performed By: #### I WIL, VITAD #### [facility] [address] [place] [address] Dr. Ryann Pearce MCHC (RBC) [Mass/Vol] 32.7 g/dL Normal 29.9-35.2 [facility] Comment on above: Performed By: #### I WIL, VITAD #### [facility] [address] [place] [address] Dr. Ryann Pearce MCV (RBC) [Entitic vol] 93.3 fL Normal 81.0-99.0 [facility] Comment on above: Performed By: #### I WIL, VITAD #### [facility] [address] [place] [address] Dr. Ryann Pearce MONO # 0.5 103/ul Normal 0.3-0.8 [facility] Comment on above: Performed By: #### I WIL, VITAD #### [facility] [address] [place] [address] Dr. Ryann Pearce Monocytes/100 WBC (Bld) 13.1 % Critically high 1.7-12. 0 [facility] Comment on above: Performed By: #### I WIL VITAD #### [facility] [address] [place] [address] Dr. Ryann Pearce NEUT # 2.0 103/ul Normal 1.4-6.5 [facility] Comment on above: Performed By: #### I WIL VITAD #### [facility] [address] [place] [address] Dr. Ryann Pearce Neutrophils/100 WBC (Bld) 52.5 % Normal 43.0-75.0 [facility] Comment on above: Performed By: #### Mike DE LA TORRE, VITAD #### [facility] [address] [place] [address] Dr. Ryann Pearce Platelet mean volume (Bld) [Entitic vol] 9.0 fL Critically low 9.5-13.5 [facility] Comment on above: Performed By: #### I WIL VITAD #### [facility] [address] [place] [address] Dr. Ryann Pearce PLT 229 103/ul Normal 150-450 [facility] Comment on above: Performed By: #### I WIL, VITAD #### [facility] [address] [place] [address] Dr. Ryann Pearce RBC 4.03 106/ul Critically low 4.20-5.40 [facility] Comment on above: Performed By: #### I WIL VITSTEPHEN #### [facility] [address] [place] [address] Dr. Ryann Pearce WBC 3.9 103/ul Critically low 4.0-11.0 [facility] Comment on above: Performed By: #### I WIL VITSETPHEN #### [facility] [address] [place] [address] Dr. Ryann Pearce PROF 14(COMP METB)on 022 Albumin [Mass/Vol] 3.1 g/dL Critically low 3.5-5.0 [facility] Comment on above: Performed By: #### C MP #### [facility] [address] [place] [address] Dr. Ryann Pearce Albumin/Globulin [Mass ratio] 0.9 {ratio} Normal [facility] Comment on above: Performed By: #### C MP #### [facility] [address] [place] [address] Dr. Ryann Pearce ALP [Catalytic activity/Vol] 66 U/L Normal 38-126 [facility] Comment on above: Performed By: #### C MP #### [facility] [address] [place] [address] Dr. Ryann Pearce ALT [Catalytic activity/Vol] 28 U/L Normal 9-52 [facility] Comment on above: Performed By: #### C MP #### [facility] [address] [place] [address] Dr. Ryann Pearce Anion gap [Moles/Vol] 9.8 mmol/L Normal [facility] Comment on above: Performed By: #### C MP #### [facility] [address] [place] [address] Dr. Ryann Pearce AST [Catalytic activity/Vol] 22 U/L Normal 14-36 [facility] Comment on above: Performed By: #### C MP #### [facility] [address] [place] [address] Dr. Ryann Pearce Bilirubin [Mass/Vol] 0.5 mg/dL Normal 0.2-1.3 [facility] Comment on above: Performed By: #### C MP #### [facility] [address] [address] [address] Ryann Pearce Calcium [Mass/Vol] 8.5 mg/dL Normal 8.4-10.2 [facility] Comment on above: Performed By: #### C MP #### [facility] [address] [address] [address] Ryann Pearce Chloride [Moles/Vol] 102 mmol/L Normal 98-107 [facility] Comment on above: Performed By: #### C MP #### [facility] [address] [address] [address] Ryann Pearce CO2 [Moles/Vol] 31.7 mmol/L Critically high 22.0-30.0 [facility] Comment on above: Performed By: #### C MP #### [facility] [address] [address] [address] Ryann Pearce Creatinine [Mass/Vol] 0.91 mg/dL Normal 0.52-1.04 [facility] Comment on above: Performed By: #### C MP #### [facility] [address] [place] [address] Dr. Ryann Pearce EGFR-AF BOLIVIAN >60 Normal >=60 [facility] Comment on above: Performed By: #### C MP #### [facility] [address] [address] [address] Ryann Pearce EGFR-NON AF BOLIVIAN =60 Normal >=60 [facility] Comment on above: Performed By: #### C MP #### [facility] [address] [address] [address] Ryann Pearce Globulin (S) [Mass/Vol] 3.3 g/dL Normal [facility] Comment on above: Performed By: #### C MP #### [facility] [address] [address] [address] Ryann Pearce Glucose [Mass/Vol] 89 mg/dL Normal 74-106 [facility] Comment on above: Performed By: #### C MP #### [facility] [address] [address] [address] Ryann Pearce Potassium [Moles/Vol] 4.5 mmol/L Normal 3.4-5.0 [facility] Comment on above: Performed By: #### C MP #### [facility] [address] [place], [place] [address] Dr. Ryann Pearce Protein [Mass/Vol] 6.4 g/dL Normal 6.1-8.2 [facility] Comment on above: Performed By: #### C MP #### [facility] [address] [address] [address] Ryann Pearce Sodium [Moles/Vol] 139 mmol/L Normal 137-145 [facility] Comment on above: Performed By: #### C MP #### [facility] [address] [address] [address] Ryann Pearce Urea nitrogen [Mass/Vol] 14.0 mg/dL Normal 7.0-17.0 [facility] Comment on above: Performed By: #### C MP #### [facility] [address] [address] [address] Ryann Pearce Urea nitrogen/Creatinine [Mass ratio] 15.4 mg/mg Normal [facility] Comment on above: Performed By: #### C MP #### [facility] [address] [address] [address] Ryann Pearce Vital Signs Date Time Vital Sign Value Performing Clinician Facility 02-04-2025 09:01-0400 Body height 167.6 cm Clifford Espinoza MD Work Phone: [facility] 02-04-2025 09:01-0400 Body mass index (BMI) [Ratio] 23.73 kg/m2 Clifford Espinoza MD Work Phone: [facility] 02-04-2025 09:01-0400 Body weight 66.68 kg Clifford Espinoza MD Work Phone: [facility] 02-04-2025 09:01-0400 Diastolic blood pressure 86 mm[Hg] Clifford Espinoza MD Work Phone: [facility] 02-04-2025 09:01-0400 Heart rate 90 /min Clifford Espinoza MD Work Phone: [facility] 02-04-2025 09:01-0400 Systolic blood pressure 138 mm[Hg] Clifford Espinoza MD Work Phone: [facility] 01-14-2025 13:38-0400 Body height 167.6 cm Clifford Espinoza MD Work Phone: [facility] 01-14-2025 13:38-0400 Body mass index (BMI) [Ratio] 23.73 kg/m2 Clifford Espinoza MD Work Phone: [facility] 01-14-2025 13:38-0400 Body weight 66.68 kg Clifford Espinoza MD Work Phone: [facility] 01-14-2025 13:38-0400 Diastolic blood pressure 98 mm[Hg] Clifford Espionza MD Work Phone: [facility] 01-14-2025 13:38-0400 Heart rate 98 /min Clifford Espinoza MD Work Phone: [facility] 01-14-2025 13:38-0400 Systolic blood pressure 124 mm[Hg] Clifford Espinoza MD Work Phone: [facility] 12-20-2024 15:45-0400 Body temperature 97.5 [degF] Funmilayo Odell MD Work Phone: [facility] 12-20-2024 15:45-0400 Diastolic blood pressure 84 mm[Hg] Funmilayo Odell MD Work Phone: [facility] 12-20-2024 15:45-0400 Heart rate 90 /min Funmilayo Odell MD Work Phone: [facility] 12-20-2024 15:45-0400 SaO2% (BldA) [Mass fraction] 96 % Funmilayo Odell MD Work Phone: [facility] 12-20-2024 15:45-0400 Systolic blood pressure 156 mm[Hg] Funmilayo Odell MD Work Phone: [facility] 11-26-2024 09:48-0400 Body height 167.64 cm Gisella Chamorro MD Work Phone: [facility] 11-26-2024 09:48-0400 Body mass index (BMI) [Ratio] 23.2 kg/m2 Gisella Chamorro MD Work Phone: [facility] 11-26-2024 09:48-0400 Body weight 65.31 kg Gisella Chamorro MD Work Phone: [facility] 11-26-2024 09:48-0400 Diastolic blood pressure 80 mm[Hg] Gisella Chamorro MD Work Phone: [facility] 11-26-2024 09:48-0400 Heart rate 103 /min Gisella Chamorro MD Work Phone: [facility] 11-26-2024 09:48-0400 Systolic blood pressure 131 mm[Hg] Gisella Chamorro MD Work Phone: [facility] 08-21-2024 13:52-0500 Body height 167.64 cm Gisella Chamorro MD Work Phone: [facility] 08-21-2024 13:52-0500 Body mass index (BMI) [Ratio] 22.8 kg/m2 Gisella Chamorro MD Work Phone: [facility] 08-21-2024 13:52-0500 Body weight 64.41 kg Gisella Chamorro MD Work Phone: [facility] 08-21-2024 13:52-0500 Diastolic blood pressure 76 mm[Hg] Gisella Chamorro MD Work Phone: [facility] 08-21-2024 13:52-0500 Heart rate 96 /min Gisella Chamorro MD Work Phone: [facility] 08-21-2024 13:52-0500 Systolic blood pressure 127 mm[Hg] Gisella Chamorro MD Work Phone: [facility] 06-21-2024 10:10-0500 Diastolic blood pressure 84 mm[Hg] Gisella Chamorro MD Work Phone: [facility] 06-21-2024 10:10-0500 Heart rate 97 /min Gisella Chamorro MD Work Phone: [facility] 06-21-2024 10:10-0500 SaO2% (BldA) [Mass fraction] 96 % Gisella Chamorro MD Work Phone: [facility] 06-21-2024 10:10-0500 Systolic blood pressure 148 mm[Hg] Gisella Chamorro MD Work Phone: [facility] 06-21-2024 09:55-0500 Respiratory rate 16 /min Gisella Chamorro MD Work Phone: [facility] 06-21-2024 08:00-0500 Body height 167.64 cm Gisella Chamorro MD Work Phone: [facility] 06-21-2024 08:00-0500 Body weight 63.5 kg Gisella Chamorro MD Work Phone: [facility] 05-30-2024 14:40-0500 Body height 165.1 cm Gisella Chamorro MD Work Phone: [facility] 05-30-2024 14:40-0500 Body mass index (BMI) [Ratio] 24 kg/m2 Gisella Chamorro MD Work Phone: [facility] 05-30-2024 14:40-0500 Body weight 65.4 kg Gisella Chamorro MD Work Phone: [facility] 05-30-2024 14:40-0500 Diastolic blood pressure 77 mm[Hg] Gisella Chamorro MD Work Phone: [facility] 05-30-2024 14:40-0500 Heart rate 111 /min Gisella Chamorro MD Work Phone: [facility] 05-30-2024 14:40-0500 Systolic blood pressure 122 mm[Hg] Gisella Chamorro MD Work Phone: [facility] 02-28-2024 14:29-0400 Body height 167.6 cm Pacc 2 Work Phone: [facility] 02-28-2024 14:29-0400 Body mass index (BMI) [Ratio] 23.77 kg/m2 Pacc 2 Work Phone: [facility] 02-28-2024 14:29-0400 Body temperature 97.7 [degF] Pacc 2 Work Phone: [facility] 02-28-2024 14:29-0400 Body weight 66.8 kg Pacc 2 Work Phone: [facility] 02-28-2024 14:29-0400 Diastolic blood pressure 82 mm[Hg] Pacc 2 Work Phone: [facility] 02-28-2024 14:29-0400 Heart rate 120 /min Pacc 2 Work Phone: [facility] 02-28-2024 14:29-0400 Respiratory rate 18 /min Pacc 2 Work Phone: [facility] 02-28-2024 14:29-0400 SaO2% (BldA) [Mass fraction] 97 % Pacc 2 Work Phone: [facility] 02-28-2024 14:29-0400 Systolic blood pressure 140 mm[Hg] Pacc 2 Work Phone: [facility] 02-23-2024 14:03-0400 Body height 167.6 cm Funmilayo Odell MD Work Phone: [facility] 02-23-2024 14:03-0400 Body mass index (BMI) [Ratio] 23.08 kg/m2 Funmilayo Odell MD Work Phone: [facility] 02-23-2024 14:03-0400 Body temperature 97.5 [degF] Funmilayo Odell MD Work Phone: [facility] 02-23-2024 14:03-0400 Body weight 64.86 kg Funimlayo Odell MD Work Phone: [facility] Comment on above: per pt. 02-23-2024 14:03-0400 Diastolic blood pressure 83 mm[Hg] Funmilayo Odell MD Work Phone: [facility] 02-23-2024 14:03-0400 Heart rate 103 /min Funmilayo Odell MD Work Phone: [facility] 02-23-2024 14:03-0400 SaO2% (BldA) [Mass fraction] 94 % Funmilayo Odell MD Work Phone: [facility] 02-23-2024 14:03-0400 Systolic blood pressure 134 mm[Hg] Funmilayo Odell MD Work Phone: [facility] 11-03-2023 14:18-0400 Body temperature 97.11 [degF] Funmilayo Odell MD Work Phone: [facility] 11-03-2023 14:18-0400 Diastolic blood pressure 87 mm[Hg] Funmilayo Odell MD Work Phone: [facility] 11-03-2023 14:18-0400 Heart rate 85 /min Funmilayo Odell MD Work Phone: [facility] 11-03-2023 14:18-0400 SaO2% (BldA) [Mass fraction] 98 % Funmilayo Odell MD Work Phone: [facility] 11-03-2023 14:18-0400 Systolic blood pressure 179 mm[Hg] Funmilayo Odell MD Work Phone: [facility] 12-07-2022 10:00-0400 Body height 165.1 cm Ivette Brandon Other [facility] Other 12-07-2022 10:00-0400 Body mass index (BMI) [Ratio] 24.96 kg/m2 Ivette Taylor Other [facility] Other 12-07-2022 10:00-0400 Body weight 68.04 kg Ivette Taylor Other [facility] Other 10-27-2022 13:59-0400 Diastolic blood pressure 74 mm[Hg] Funmilayo Odell MD Work Phone: [facility] 10-27-2022 13:59-0400 Heart rate 98 /min Funmilayo Odell MD Work Phone: [facility] 10-27-2022 13:59-0400 SaO2% (BldA) [Mass fraction] 96 % Funmilayo Odell MD Work Phone: [facility] 10-27-2022 13:59-0400 Systolic blood pressure 137 mm[Hg] Funmilayo Odell MD Work Phone: [facility] 09-21-2022 11:31-0400 Diastolic blood pressure 90 mm[Hg] MD Gisella Chamorro Work Phone: [facility] 09-21-2022 11:31-0400 Heart rate 94 /min MD Gisella Chamorro Work Phone: [facility] 09-21-2022 11:31-0400 Respiratory rate 18 /min MD Gisella Chamorro Work Phone: [facility] 09-21-2022 11:31-0400 SaO2% (BldA) [Mass fraction] 98 % MD Gisella Chamorro Work Phone: [facility] 09-21-2022 11:31-0400 Systolic blood pressure 146 mm[Hg] MD Gisella Chamorro Work Phone: [facility] 09-21-2022 10:09-0400 Body height 167.64 cm MD Gisella Chamorro Work Phone: [facility] 09-21-2022 10:09-0400 Body temperature 98.7 [degF] MD Gisella Chamorro Work Phone: [facility] 09-21-2022 10:09-0400 Body weight 64.41 kg MD Gisella Chamorro Work Phone: [facility] 01-05-2022 14:45-0400 Body height 165.1 cm Sydney Oswald II Other [facility] Other 01-05-2022 14:45-0400 Body mass index (BMI) [Ratio] 22.96 kg/m2 Sydney Oswald II Other [facility] Other 01-05-2022 14:45-0400 Body weight 62.6 kg Sydney Oswald II Other [facility] Other 12-20-2021 12:31-0400 Diastolic blood pressure 94 mm[Hg] MD Gisella Chamorro Work Phone: [facility] 12-20-2021 12:31-0400 Heart rate 78 /min MD Gisella Chamorro Work Phone: [facility] 12-20-2021 12:31-0400 Respiratory rate 16 /min MD Gisella Chamorro Work Phone: [facility] 12-20-2021 12:31-0400 SaO2% (BldA) [Mass fraction] 99 % MD Gisella Chamorro Work Phone: [facility] 12-20-2021 12:31-0400 Systolic blood pressure 172 mm[Hg] MD Gisella Chamorro Work Phone: [facility] 12-20-2021 09:35-0400 Body temperature 97.8 [degF] MD Gisella Chamorro Work Phone: [facility] 12-20-2021 09:35-0400 Inhaled oxygen flow rate 6 L/min MD Gisella Chamorro Work Phone: [facility] 12-20-2021 08:23-0400 Body height 167.64 cm MD Gisella Chamorro Work Phone: [facility] 12-20-2021 08:23-0400 Body mass index (BMI) [Ratio] 23.8 kg/m2 MD Gisella Chamorro Work Phone: [facility] 12-20-2021 08:23-0400 Body weight 67 kg MD Gisella Chamorro Work Phone: [facility] 11-10-2021 10:45-0400 Body height 165.1 cm Sydney Monona II Other [facility] Other 11-10-2021 10:45-0400 Body mass index (BMI) [Ratio] 23.13 kg/m2 Sydney Monona II Other [facility] Other 11-10-2021 10:45-0400 Body weight 63.05 kg Sydney Leroyisle II Other [facility] Other 04-20-2021 11:45-0400 Body height 165.1 cm Manoj Forbes Other [facility] Other 04-20-2021 11:45-0400 Body mass index (BMI) [Ratio] 23.13 kg/m2 Manoj Forbes Other [facility] Other 04-20-2021 11:45-0400 Body weight 63.05 kg Manoj Olgafedericoy Other [facility] Other 04-20-2021 11:45-0400 Diastolic blood pressure 106 mm[Hg] Manoj Armstrongy Other [facility] Other 04-20-2021 11:45-0400 Systolic blood pressure 155 mm[Hg] Manoj Ditty Other [facility] Other Encounters Encounter Date Encounter Type Care Provider Facility Start: 02-13-2025 End: 02-13-2025 Subsequent hospital visit by physician Rad External Film [facility] Comment on above: Arrived Start: 02-13-2025 End: 02-13-2025 ambulatory [facility] Start: 02-12-2025 End: 02-12-2025 Bamboo flowsheet William Barkley DO Work Phone: [facility] Start: 02-12-2025 End: 02-12-2025 Bamboo flowsheet William Barkley DO Work Phone: [facility] Start: 02-12-2025 End: 02-12-2025 ambulatory WILLIAM BARKLEY Not Available Start: 02-04-2025 End: 02-04-2025 Bamboo flowsheet Clifford Espinoza MD Work Phone: [facility] Otolaryngology Start: 02-04-2025 End: 02-04-2025 Bamboo flowsheet Clifford Esp[facility]za MD [facility] Phone[facility] Start: 02-04-2025 End: 02-04-2025 Office outpatient visit 15 minutes Clifford Espinoza MD Work Phone: [facility] Otolaryngology Comment on above: Vestibular schwannom a (HCC) (Primary Dx) Start: 02-04-2025 End: 02-04-2025 ambulatory CLIFFORD ESPINOZA Not Available Start: 01-29-2025 End: 01-29-2025 Clinisync Result Encounter Clifford Espinoza MD Work Phone: [facility] External Department Unsolicited Start: 01-29-2025 End: 01-29-2025 Clinisync Result Encounter Clifford Espinoza MD Work Phone: [facility] External Department Unsolicited Start: 01-14-2025 End: 01-14-2025 Bamboo flowsjuana Espinoza MD Work Phone: [facility] Start: 01-14-2025 End: 01-14-2025 Bamboo flowsjuana Espinoza MD Work Phone: [facility] Start: 01-14-2025 End: 01-14-2025 Office outpatient new 45 minutes Clifford Espinoza MD Work Phone: [facility] Comment on above: 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) Start: 01-14-2025 End: 01-14-2025 ambulatory CLIFFORD ESPINOZA Not Available Start: 01-08-2025 End: 01-08-2025 Bamboo flowsheet Nora Adalberto Jangl SMS CCC-A Work Phone: [facility] Start: 01-08-2025 End: 01-08-2025 Bamboo flowsheet Nora Adalberto Royce CCC-A Work Phone: [facility] Start: 01-08-2025 End: 01-08-2025 Clinical Support Nora Schroeder CCC-A Work Phone: [facility] Comment on above: Asymmetrical sensori neural hearing loss (Primary Dx); Tinnitus, left; Impaired auditory discrimination, left Start: 12-20-2024 End: 12-20-2024 Patient encounter procedure Funmilayo Odell MD Work Phone: Colorectal Surgery Comment on above: Rectal prolapse ([place] kourtney Dx); Pelvic floor dysfunction Start: 12-20-2024 End: 12-20-2024 ambulatory FUNMILAYO ODELL Facility:[facility] Start: 11-26-2024 End: 11-26-2024 ambulatory Gisella Chamorro MD Work Phone: [facility] Work Phone: Start: 11-26-2024 End: 11-26-2024 Patient encounter procedure Gisella Chamorro MD Work Phone: [facility] Work Phone: Start: 10-22-2024 End: 10-22-2024 Patient encounter procedure Gisella Chamorro MD Work Phone: [facility] [address] Work Phone: Start: 10-22-2024 End: 10-22-2024 ambulatory Gisella Chamorro MD Work Phone: [facility] Work Phone: Start: 08-21-2024 End: 08-21-2024 ambulatory Gisella Chamorro MD Work Phone: [facility] Work Phone: Start: 08-21-2024 End: 08-21-2024 Patient encounter procedure Gisella Chamorro MD Work Phone: [facility] Work Phone: Start: 07-22-2024 End: 07-22-2024 Patient encounter procedure Gisella Chamorro MD Work Phone: [facility] [address] Work Phone: Start: 07-22-2024 End: 07-22-2024 ambulatory Gisella Chamorro MD Work Phone: [facility] Work Phone: Start: 06-25-2024 Non-patient / Non-visit Pepe Chamorro MD Work Phone: [facility] Work Phone: Start: 06-21-2024 Non-patient / Non-visit Pepe Chamorro MD Work Phone: [facility] Work Phone: Start: 06-21-2024 End: 06-21-2024 Admission to same day surgery center Gisella Chamorro MD Work Phone: [facility]-Digestive [facility] Work Phone: Start: 06-21-2024 End: 06-21-2024 ambulatory Gisella Chamorro Facility:[facility] Start: 05-30-2024 End: 05-30-2024 Patient encounter procedure Gisella Chamorro MD Work Phone: [facility] Work Phone: Start: 04-01-2024 End: 04-01-2024 Patient encounter procedure MD Gisella Chamorro Work Phone: [facility] [address] [place] Work Phone: Start: 04-01-2024 End: 04-01-2024 ambulatory MD Gisella Chamorro Work Phone: [facility] Work Phone: Start: 03-19-2024 End: 03-19-2024 Evaluation and management of inpatient FUNMILAYO ODELL Facility:[facility] Start: 02-28-2024 End: 02-28-2024 Admission to [...] Preprocedural examination done Pac 2 Work Phone: [facility] Work Phone: Start: 02-28-2024 End: 02-28-2024 ambulatory [facility] Start: 02-28-2024 Encounter for other preprocedural examination FUNMILAYO ODELL [facility] Start: 02-23-2024 End: 02-23-2024 ambulatory FUNMILAYO ODELL Facility:[facility] Start: 02-23-2024 End: 02-23-2024 Patient encounter procedure Funmilayo Odell MD Work Phone: Colorectal Surgery Comment on above: Hemorrhoids, unspeci fied hemorrhoid type (Primary Dx) Start: 11-03-2023 End: 11-03-2023 Patient encounter procedure Funmilayo Odell MD Work Phone: Colorectal Surgery Comment on above: BRBPR (bright red bl ood per rectum) (Primary Dx); Hemorrhoids, unspecified hemorrhoid type; Pelvic floor dysfunction Start: 10-11-2023 Telephone encounter Funmilayo arizmendi MD Work Phone: Colorectal Surgery Comment on above: Received Outside [facility] Records; Appointment Start: 04-10-2023 End: 04-10-2023 ambulatory Manoj Forbes Other [facility] Other Start: 04-10-2023 Telephone encounter Manoj MCNEIL G [facility] Start: 01-04-2023 End: 01-04-2023 ambulatory Ivette Taylor Other [facility] Other Start: 01-04-2023 Office outpatient vi sit 15 minutes Ivette Taylor [facility] Start: 12-23-2022 End: 12-23-2022 ambulatory MD Gisella Chamorro Work Phone: [facility] Work Phone: Start: 12-23-2022 End: 12-23-2022 Patient encounter procedure MD Gisella Chamorro Work Phone: [facility] Start: 12-07-2022 Office outpatient ne w 30 minutes Ivette Taylor [facility] Start: 12-07-2022 End: 12-07-2022 ambulatory MD Gisella Chamorro Work Phone: [facility] Work Phone: Start: 12-07-2022 End: 12-07-2022 Patient encounter procedure MD Gisella Chamorro Work Phone: [facility] Start: 10-27-2022 End: 10-27-2022 Patient encounter procedure Funmilayo Odell MD Work Phone: Colorectal Surgery Comment on above: Hemorrhoids, unspeci fied hemorrhoid type (Primary Dx) Start: 09-22-2022 End: 09-22-2022 ambulatory Manoj Forbes Other [facility] Other Start: 09-22-2022 Telephone encounter Manoj [facility]oper [facility] Start: 09-21-2022 End: 09-21-2022 Admission to same day surgery center MD Gisella Chamorro Work Phone: [facility] Work Phone: Start: 09-21-2022 End: 09-21-2022 ambulatory MD Gisella Chamorro Work Phone: [facility] Work Phone: Start: 08-23-2022 End: 08-24-[address] DOCTOR MAHARAJ Facility:[facility] Start: 08-04-2022 End: 08-04-2022 ambulatory Manoj Forbes Other [place] [employer] Other Start: 08-04-2022 Telephone encounter Manoj [facility] Start: 07-06-2022 End: 07-07-[address] GISELLA CHAMORRO . Facility:[facility] Start: 06-06-2022 End: 06-07-[address] GISELLA CHAMORRO . Facility:[facility] Start: 05-11-2022 End: 05-12-[address] GISELLA CHAMORRO . Facility:[facility] Start: 04-04-2022 End: 04-04-2022 ambulatory Manoj Forbes Other [place] [employer] Other Start: 04-04-2022 Telephone encounter Manoj [facility]oper [facility] Start: 03-16-2022 End: 03-16-2022 Patient encounter procedure MD Gisella Chamorro Work Phone: [facility] Start: 02-23-2022 End: 02-23-2022 Discharged Recurring MD Gisella Chamorro Work Phone: [facility]-Physical Therapy [place] Start: 02-21-2022 End: 02-22-[address] LITA HANSEN Facility:[facility] Start: 02-02-2022 (Post-Op) Post-Op Sydney Andersenle II [facility] Start: 02-02-2022 End: 02-02-2022 ambulatory Sydney Monona II Other [facility] Other Start: 02-02-2022 End: 02-02-2022 Patient encounter procedure MD Gisella Pruitt Phone: [facility] Start: 01-05-2022 (Post-Op) Post-Op Sydney Monona II [facility] Start: 01-05-2022 End: 01-05-2022 ambulatory Sydney Andersenle II Other [facility] Other Start: 12-20-2021 End: 12-20-2021 Admission to same day surgery center MD Gisella Pruitt Phone: [facility]gery Center [place] Start: 12-17-2021 End: 12-17-2021 Patient encounter procedure MD Gisella Pruitt Phone: [facility]-Pre-Surgical Testing Start: 12-10-2021 (Prolonged) Prolonge d Services Sydney Andersenle II [facility] Start: 12-10-2021 End: 12-10-2021 ambulatory Sydney Leroyisle II Other [facility] Other Start: 12-10-2021 Telephone encounter Sydney Andersenle II [facility] Start: 12-07-2021 End: 12-07-2021 Patient encounter procedure MD Gisella Pruitt Phone: [facility]-Pre-Surgical Testing Start: 12-01-2021 End: 12-01-2021 ambulatory Sydney Darek II Other [facility] Other Start: 12-01-2021 Patient encounter procedure Sydney Monona II [facility] Start: 11-18-2021 Encounter for preprocedural cardiovascular examination SYDNEY OSWALD [facility] Start: 11-12-2021 End: 11-13-2021 ambulatory SYDNEY OSWALD Facility:[facility]1 Start: 11-12-2021 End: 11-13-2021 Encounter for preprocedural cardiovascular examination SYDNEY OSWALD Facility:[facility] Start: 11-10-2021 End: 11-10-2021 ambulatory Sydney Andersenle II Other [facility] Other Start: 11-10-2021 Office outpatient vi sit 40 minutes Sydney Monona II [facility] Start: 09-01-2021 End: 09-02-[address] DOCTOR MAHARAJ Facility:[facility]1 Start: 08-13-2021 End: 08-13-2021 ambulatory Sydney Andersenle II Other [facility] Other Start: 08-13-2021 Office outpatient ne w 45 minutes Sydney Monona II [facility] Start: 04-20-2021 Patient encounter procedure Manoj Forbes [facility] Gastroenterology Procedures Date Procedure Procedure Detail Performing Clinician Start: 02-13-2025 Study Interpretation of outside study Patel Wylie MD Work Phone: Start: 02-12-2025 End: 02-12-2025 [facility] medical xm&eval compre new pt 1/> vst Left posterior capsular opacification William Barkley DO Work Phone: Comment on above: Left posterior capsu lar opacification (Primary Dx) Start: 01-29-2025 MRI HEAD/BRAIN WO/W CONTR Clifford Espinoza MD Work Phone: Start: 01-29-2025 [facility] CREATININE Clifford Espinoza MD Work Phone: Start: 01-08-2025 AUDITORY FUNCTION TESTS Nora Schroeder [facility] Work Phone: Start: 06-21-2024 Flexible fiberoptic sigmoidoscopy Gisella Chamorro [...] Start: 02-27-2027 Diabetes Screening Diabetes Screenin g [facility] Start: 03-06-2025 End: 03-06-2025 Patient encounter procedure 03/06/2025 1:45 PM EDT Office Visit [facility] [address] [facility] [address] [place] [address] Patle Wylie MD [address] [facility] [address] [place] [address] [facility] Start: 02-24-2025 Influenza vaccination [facility] Start: 02-12-2025 End: 02-12-2025 Patient encounter procedure [facility] Comment on above: Arrived Start: 02-04-2025 End: 02-04-2025 Patient encounter procedure [facility] Comment on above: Arrived Start: 01-14-2025 End: 01-14-2025 Patient encounter procedure [facility] Comment on above: Arrived Start: 01-08-2025 End: 01-08-2025 Clinical Support 01/08/2025 1:00 PM EDT Clinical Support [facility] [address] [facility] [address] [place] [id number] Nora Schroeder, [facility] [address] [facility] [place] [address] Arrived [facility] Comment on above: Arrived Start: 11-26-2024 Patient referral [facility] Work Phone: Start: 06-26-2024 Advance Directive Discussion Advance Directive Discussion [facility] Start: 06-21-2024 [facility] Start: 03-19-2024 End: 03-19-2024 Admission to same day surgery center 03/19/2024 7:30 AM EDT - 03/19/2024 8:40 AM EDT Surgery [facility] [id number] [place] [address] [place] [address] [address] [facility] [address] [place], [place] [id number] EXCISION RECTAL PROCIDENTIA W/ ANASTOMOSIS [facility] Comment on above: EXCISION RECTAL [...] physician 03/19/2024 7:30 AM EDT Hospital Encounter [facility] [address] [place] [address] [place] [id number] [address] [place], [place] [id number] BRBPR (bright red blood per rectum) [K62.5] [facility] Comment on above: BRBPR (bright red bl ood per rectum) [K62.5] Start: 02-25-2024 COVID-19 Vaccine ( season) COVID-19 Vaccine () [facility] Start: 02-25-2024 Covid-19 Vaccine () Covid-19 Vaccine () [facility] Start: 02-25-2024 Covid-19 Vaccine () Covid-19 Vaccine () [facility] Start: 02-25-2024 Influenza vaccination [facility] Start: 06-26-2023 Advance Directive Discussion Advance Directive Discussion [facility] Start: 06-26-2023 Behavioral Health Screening Behavioral Health Screening [facility] Start: 02-24-2023 Covid-19 Vaccine () Covid-19 Vaccine () [facility] Start: 02-24-2023 Influenza vaccination INFLUENZ A (Season Ended) [facility] Start: 09-21-2022 [facility] Start: 06-26-2022 ADVANCE DIRECTIVE DISCUSSION ADVANCE DIRECTIVE DISCUSSION [facility] Start: 06-26-2022 DEPRESSION ASSESSMENT DEPRESSION ASS ESSMENT [facility] Start: 12-20-2021 [facility] Work Phone: Start: 12-20-2021 [facility] Work Phone: Start: 06-16-2021 COVID-19 VACCINE (4 - Booster for Moderna series) COVID-19 VACCINE (4 - Booster for Moderna series) [facility] Start: 2020 RSV High Risk: (Elderly (60+) or Population) (1 - 1-dose 75+ series) RSV High Risk: (Elderly (60+) or Population) (1 - 1-dose 75+ series) [facility] Start: 2020 RSV Vaccine (1 - 1-dose 75+ series) RSV Vaccine (1 - 1-dose 75+ series) [facility] Start: 2010 BONE DENSITY BONE DENSITY [facility] Start: 2010 PNEUMOCOCCAL: 65+ (1 - PCV) PNEUMOCOCCAL: 65+ (1 - PCV) [facility] Start: 2010 Screening for osteoporosis [facility] Start: 06-26-2010 Medicare Annual Wellness Visit Medicare Annual Wellness Visit [facility] Start: 2005 RSV Vaccine (1 - 1-dose 60+ series) RSV Vaccine (1 - 1-dose 60+ series) [facility] Start: 1995 Pneumococcal vaccination Pneumococcal Vaccine (1 of 1 - PCV) [facility] Start: 1995 SHINGRIX VACCINE (1 of 2) SHINGRIX VACCINE (1 of 2) [facility] Start: 1995 Zoster Vaccines (1 o f 2) Zoster Vaccines (1 of 2) [facility] Start: 1990 DI[facility]ET[facility] SCREEN [facility] Start: 1990 Diabetes Screening Diabetes Screenin g [facility] Start: 1967 DTaP/Tdap/Td Vaccine s (1 - Tdap) DTaP/Tdap/Td Vaccines (1 - Tdap) [facility] Start: 1964 Urine microalbumin profile [facility] Start: 1963 Annual PCP Team Chronic Disease Visit Annual PCP Team Chronic Disease Visit [facility] Start: 1963 Anxiety Screening Anxiety Screening [facility] Start: 1963 Depression Screening Depression Scre ening [facility] Start: 1963 HEPATITIS C SCREENING HEPATITIS C [facility] Start: 1963 Hepatitis C screening Hepatitis C [facility] Start: 1945 Lipid panel Lipid Panel [facility] Start: 1945 Yearly Adult Physical Yearly Adult P hysical [facility] ECG COMPLETE ECG COMPLETE ECG Routine Preoperative examination Tachycardia 02/28/2024 1:49 PM EDT [facility] Work Phone: Patient Education [facility] Work Phone: Patient referral [facility] Work Phone: [facility] Immunizations Immunization Date Immunization Notes Care Provider Fa hernan 06-07-2023 influenza virus vaccine, unspecified formulation Funmilayo Odell MD Work Phone: [facility] 04-16-2021 COVID-19 mRNA-1273 (Moderna) MD Gisella Chamorro Work Phone: [facility] 09-01-2020 COVID-19 mRNA-1273 (Moderna) MD Gisella Chamorro Work Phone: [facility] 08-03-2020 COVID-19 mRNA-1273 (Moderna) MD Gisella Chamorro Work Phone: [facility] 04-02-2020 influenza virus vaccine, unspecified formulation Funmilayo Odell MD Work Phone: [facility] Payers Date Payer Category Payer Self-pay [id number] 2022 Private Health Insurance [id number] 2010 Medicare [id number] 1959 Medicare [id number] 2.1 [id number] 1959 Unknown [id number] 2.1 [id number] 1945 Unknown [id number] 2.16.84 [id number] 1945 Unknown [id number] 2.16.84 [id number] 1945 Unknown [id number] 2.16.84 [id number] 1945 Unknown [id number] 2.16.84 [id number] 1945 Unknown [id number] 2.16.84 [id number] 1945 Unknown [id number] 2.16.84 [id number] 1945 Unknown [id number] 2.16.84 [id number] 1945 Unknown [id number] 2.16.8 40.1.062703.3.579.2.1259 1945 Unknown [id number] 2.16.8 40.1.552072.3.579.2.1259 1945 Unknown [id number] 2.16.8 [id number] 1945 Unknown [id number] 2.16.8 [id number] Unknown [id number] 2.16.8 [id number] Unknown [id number] 2.16.8 40.1.289100.3.579.2.531 Unknown [id number] 2.16.8 [id number] Unknown [id number] 2.16.8 [id number] Social History Date Type Detail Facility Unknown if ever smoked [facility] Other Start: 10-27-2022 End: 01-14-2025 Sex Assigned At [facility] Other Start: 12-20-2021 End: 01-14-2025 Tobacco smoking status NHIS Never smoked tobacco (finding) [facility] Start: 1945 Sex Assigned At Female [facility] Start: 10-27-2022 End: 01-14-2025 Tobacco use and exposure Smokeless tobacco non-user [facility] Start: 10-27-2022 End: 12-20-2024 Alcohol intake Lifetime non-drinker (finding) [facility] Start: 1945 Sex Assigned At Not on file [facility] Start: 10-27-2022 End: 01-14-2025 History of Social function [facility] Start: 05-20-2022 National Score (1-100), lower number is lower risk 53 [facility] Start: 02-27-2024 Gender identity Identifies as female gender (finding) [facility] Start: 02-27-2024 Sexual orientation Heterosexual (finding) [facility] Start: 07-23-2024 Sex Patient sex unknown (finding) [facility] Start: 08-21-2024 End: 11-26-2024 Sex Female (finding) [facility] Tobacco smoking stat [facility] Tobacco smoking consumption unknown [facility] Start: 01-14-2025 End: 02-12-2025 Alcoholic beverage intake Ex-drinker (finding) [facility] Start: 01-14-2025 Alcohol Comment Occ [facility] Medical Equipment Procedure Code Equipment Code Equipment Origin al Text Equipment Identifier Dates Arthroplasty, knee, total, minimally invasive Orthopaedic cement, non-medicated [id number] FDA Start: 12-20-2021 Arthroplasty, knee, total, minimally invasive Uncoated knee femur prosthesis ()[id number] FDA Start: 12-20-2021 Arthroplasty, knee, total, minimally invasive Tibial insert ()[id number] FDA Start: 12-20-2021 Arthroplasty, knee, total, minimally invasive Uncoated knee tibia prosthesis, metallic ()[id number] FDA Start: 12-20-2021 Arthroplasty, knee, total, minimally invasive Polyethylene patella prosthesis ()[id number] FDA Start: 12-20-2021 Goals Date Patient Goal Desired Activity /State Clinical Notes 04-20-2021 to 02-12-2025 William Barkley, DO - 02/12/2025 1:15 PM Zhang Espinoza MD - 02/04/2025 9:00 AM Zhang Espinoza MD - 01/14/2025 1:40 PM EDTWilliamdemetrice Schroeder, [facility] - 01/08/2025 1:00 PM EDT Note Date & Type Note Facility 02-12-2025 History of Present illness Narrative Images from the original note were not [...] vision in the left eye (OS), mainly in the morning and it is not constant. Using Systane drops in both eyes (OU) about 3 times a week. Pt has occasional small spot like floaters in both eyes (OU). Last edited by William Barkley DO on 02/12/2025 1:30 PM. No current [...] @ 1:17 PM Additional Tests Keratometry K1 [place] K2 [place] Right 44.00 94 45.50 4 Left 44.00 [...] Normal Normal Refraction Wearing Rx Sphere Cylinder [place] Add Right +1.25 -2.50 096 +2.25 Left -0.75 -0.25 158 +2.25 Manifest Refraction Sphere Cylinder [place] Right +1.25 -2.50 090 Left -0.50 -1.50 [...] laser capsulotomy, they are to notify their pharmaceutical salesperson promptly if they have a significant change in symptoms, such as flashes of light (photopsia), an increase in floaters, loss of visual field or decrease in visual acuity. documented in this encounter [facility] 02-04-2025 History of Present illness Narrative Subjective Patient ID: Billie Britofather is a 79 y.o. female who presents for Hearing Loss (Follow up MRI [facility] 01/29/25) MRI reviewed and there is a 4.4x3mm mass withing the left IAC c/w a vestibular schwannoma. No family history on file. 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 Objective Last Recorded Vitals Vitals: 02/04/25 0901 BP: 138/86 Pulse: 90 ENT Physical Exam Constitutional Appearance: patient appears well-developed, well-nourished and well-groomed, Communication/Voice: communication appropriate for developmental age; vocal quality normal; Assessment/Plan Diagnoses and all orders for this visit: Vestibular schwannoma (HCC) Pt's sudden HL was due to a small schwannoma contained within the left IAC. I will refer her to Dr Luisa Vanegas at for evaluation and management documented in this encounter [facility] 01-14-2025 History of Present illness Narrative Subjective Patient ID: Billie Britofather is a 79 y.o. female who presents [...] a CROS [place]ER[place]. documented in this encounter [facility] 01-08-2025 History of Present illness Narrative History: Pt was referred to ENT because of hearing loss. Pt reports difficulty hearing from her left ear, onset May 2024. Pt had Influenza A at the time. Pt has been treated for fluid in her left ear but the hearing has not returned. Pt reports periodic tinnitus left ear. Pt denies exposure to excessive noise and frequent ear infections. Otoscopic Exam: Ear canal clear and TM intact AU Pure Tone Audiometry Right Ear: Mild sensorineural hearing loss From 500 Hz - 1K Hz. Mild to severe sensorineural hearing loss above 3K hz Left Ear: Mild to severe sensorineural hearing loss Speech Audiometry Right SRT = 35 dB and word discrimination score at 60 dBHL = 100% Left SRT = 60 dB and word discrimination score at 65 dBHL (masked) = 100% Tympanometry Right Ear: Type A tympanogram Left Ear: Type A tympanogram documented in this encounter [facility] 12-20-2024 History of Present illness Narrative COLORECTAL SURGERY December 20, 2024 Billie Goodther 79 year old This consult was requested by Dr. Forbes and my final recommendations will be communicated to the requesting health care provider by way of the shared medical record for internal providers or letter via the [employer] for external providers. Chief Complaint: rectal prolapse History of Present Illness: Billie Yeboah is a 79 year old female presents today for follow up evaluation of hemorrhoids and rectal prolapse. She was previously seen in office in 2023 for hemorrhoids. Crohn's disease - followed by Dr. Forbes Sigmoidoscopy 06/21/24 - Dr. Forbes Scan on 11/29/2024 1:32 PM by Laci Mancuso: [facility] - Flexible Sigmoidoscopy w Biopsy, 06/21/24 Pathology FINAL DIAGNOSIS A. Colon, ascending, biopsy: - Colonic mucosa with no pathologic diagnostic abnormality; negative for granulomas or dysplasia. B. Colon, sigmoid, biopsy: - Chronic minimally active colitis; negative for granulomas or dysplasia. C. Rectum, biopsy: - Chronic mildly active colitis; negative for granulomas or dysplasia. Sigmoidoscopy 09/21/22 - Dr. Forbes Retroflexed views: There is small hypervascular appearing internal hemorrhoids extending down below the dentate line, comprising an external component as well. Rectal bleeding has resolved. Feels much improved from mesalamine. Now issue is with fecal incontinence, leakage of small volume liquid stool 2-3 times/week. PAST MEDICAL HISTORY Diagnosis Date HLD (hyperlipidemia) Hypothyroidism IBS (irritable bowel syndrome) OA (osteoarthritis) of finger PAST SURGICAL HISTORY Procedure Laterality Date COLONOSCOPY SCREENING FOOT SURGERY HX Bilateral for neuroma's. unsure of year HYSTERECTOMY HX 1998 THYROID SURGERY HX 1968 partial thyroidectomy for nodule TOTAL HIP REPLACEMENT Right 2014 TOTAL KNEE REPLACEMENT Left 2006 TOTAL KNEE REPLACEMENT Right 2021 Current Outpatient Medications Medication Sig Dispense Refill Etodolac 500 mg tablet Etodolac Active 500 MG PO Twice daily April 29, 2021 12:00am traMADol (ULTRAM) 50 mg tablet as needed for pain. amitriptyline (ELAVIL) 50 mg tablet Take 50 [...] ALLERGIES Allergen Reactions Ciprofloxacin Rash, Unknown Nitrofurantoin Barber* Other: See Comments, GI Upset Sulfamethoxazole-Tr* Other: See Comments, Rash FAMILY HISTORY Problem Relation Age of Onset Alzheimer's Disease Mother Heart Father age 80's Social History Tobacco Use Smoking status: Never Smokeless tobacco: Never Substance Use Topics Alcohol use: Never Drug use: Never Physical Exam: BP 156/84 (BP Site: Right Arm, BP Position: Sitting, BP Cuff Size: Regular Adult) Pulse 90 Temp 36.4 C (97.5 F) SpO2 96% General Appearance: Well appearing, alert, in no acute distress, well-hydrated, well nourished. Anorectal: External exam reveals soft external hemorrhoids. Digital rectal exam reveals no gross blood or masses. Weakened tone and squeeze Legal Adviser present: Yes, Sarah Z The sensitive examination was discussed with the Patient or Patient's Authorized Tire Retreader. As applicable, any other physician, advance practice provider, medical student, or other health professional student that will be observing or involved in the sensitive examination for educational or training purposes was discussed with the Patient or Authorized Tire Retreader. The Patient or Authorized Tire Retreader has agreed to proceed with the sensitive examination. (Sensitive examination includes inspection and/or palpation of the breasts, pelvis, prostate and anorectal regions) Assessment Assessment and Plan: Billie Yeboah is a 79 year old female with fecal incontinence 2-3 times/week small volume liquid stool. Will attempt management with Metamucil/Imodium and pelvic floor physical therapy. If things persist in 2 months she will return to see me and we will discuss sacral nerve stimulation. Patient and family voiced understanding and agreement with plan Medical Decision Making: Data Reviewed: Tests & Documents Reviewed/ordered: Review of prior notes from myself Review of prior operative reports Review of Pathology Review of Labs: CBC, BMP Review of Procedures / Tests: Colonoscopy Risk of morbidity, mortality and/or complications of treatment plan: nyla Odell MD Colorectal Surgery documented in this encounter [facility] 12-20-2024 Note HNO ID: [id number] Author: FUNMILAYO ODELL MD Service: ? Author Type: Physician Type: Progress Notes Filed: 12/20/2024 16:21 Note Text: COLORECTAL SURGERY December 20, 2024 Billie Yeboah 79 year old This consult was requested by Dr. Forbes and my final recommendations will be communicated to the requesting health care provider by way of the shared medical record for internal providers or letter via the [employer] Postal [employer] for external providers. Chief Complaint: rectal prolapse History of Present Illness: Billie Yeboah is a 79 year old female presents today for follow up evaluation of hemorrhoids and rectal prolapse. She was previously seen in office in 2023 for hemorrhoids. Crohn's disease - followed by Dr. Forbes Sigmoidoscopy 06/21/24 - Dr. Forbes Scan on 11/29/2024 1:32 PM by Laci Mancuso: [facility] - Flexible Sigmoidoscopy w Biopsy, 06/21/24 Pathology FINAL DIAGNOSIS A. Colon, ascending, biopsy: - Colonic mucosa with no pathologic diagnostic abnormality; negative for granulomas or dysplasia. B. Colon, sigmoid, biopsy: - Chronic minimally active colitis; negative for granulomas or dysplasia. C. Rectum, biopsy: - Chronic mildly active colitis; negative for granulomas or dysplasia. Sigmoidoscopy 09/21/22 - Dr. Forbes Retroflexed views: There is small hypervascular appearing internal hemorrhoids extending down below the dentate line, comprising an external component as well. Rectal bleeding has resolved. Feels much improved from mesalamine. Now issue is with fecal incontinence, leakage of small volume liquid stool 2-3 times/week. PAST MEDICAL HISTORY Diagnosis Date HLD (hyperlipidemia) Hypothyroidism IBS (irritable bowel syndrome) OA (osteoarthritis) of finger PAST SURGICAL HISTORY Procedure Laterality Date COLONOSCOPY SCREENING FOOT SURGERY HX Bilateral for neuroma's. unsure of year HYSTERECTOMY HX 1998 THYROID SURGERY HX 1968 partial thyroidectomy for nodule TOTAL HIP REPLACEMENT Right 2014 TOTAL KNEE REPLACEMENT Left 2006 TOTAL KNEE REPLACEMENT Right 2021 Current Outpatient Medications Medication Sig Dispense Refill Etodolac 500 mg tablet Etodolac Active 500 MG PO Twice daily April 29, 2021 12:00am traMADol (ULTRAM) 50 mg tablet as needed for pain. amitriptyline (ELAVIL) 50 mg tablet Take 50 [...] ALLERGIES Allergen Reactions Ciprofloxacin Rash, Unknown Nitrofurantoin Barber* Other: See Comments, GI Upset Sulfamethoxazole-Tr* Other: See Comments, Rash FAMILY HISTORY Problem Relation Age of Onset Alzheimer's Disease Mother Heart Father age 80's Social History Tobacco Use Smoking status: Never Smokeless tobacco: Never Substance Use Topics Alcohol use: Never Drug use: Never Physical Exam: BP 156/84 (BP Site: Right Arm, BP Position: Sitting, BP Cuff Size: Regular Adult) Pulse 90 Temp 36.4 ?C (97.5 ?F) SpO2 96% General Appearance: Well appearing, alert, in no acute distress, well-hydrated, well nourished. Anorectal: External exam reveals soft external hemorrhoids. Digital rectal exam reveals no gross blood or masses. Weakened tone and squeeze Legal Adviser present: Yes, Sarah Z The sensitive examination was discussed with the Patient or Patient's Authorized Tire Retreader. As applicable, any other physician, advance practice provider, medical student, or other health professional student that will be observing or involved in the sensitive examination for educational or training purposes was discussed with the Patient or Authorized Tire Retreader. The Patient or Authorized Tire Retreader has agreed to proceed with the sensitive examination. (Sensitive examination includes inspection and/or palpation of the breasts, pelvis, prostate and anorectal regions) Assessment Assessment and Plan: Billie Yeboah is a 79 year old female with fecal incontinence 2-3 times/week small volume liquid stool. Will attempt management with Metamucil/Imodium and pelvic floor physical therapy. If things persist in 2 months she will return to see me and we will discuss sacral nerve stimulation. Patient and family voiced understanding and agreement with plan Medical Decision Making: Data Reviewed: Tests AND Documents Reviewed/ordered: Review of prior notes from myself Review of prior operative reports Review of Pathology Review of Labs: CBC, BMP Review of Procedures / Tests: Colonoscopy Risk of morbidity, mortality and/or complications of treatment plan: nyla Odell MD Colorectal Surgery [facility] 08-21-2024 Evaluation note Diagnosis Onset Date Resolution BRBPR (bright red blood per rectum) acute August 21 025 1:39pm Hemorrhoids acute July 1:39pm Irritable bowel syndrome with constipation acute August 21, 2024 1:39pm Segmental colitis associated with diverticulosis acute August 21 1:39pm [facility] Work Phone: 1(274) 194-727012-05-2024 Evaluation note* Diagnosis Onset Date Resolution Status Admit Date Acute Crohn's disease acute May 2:34pm [facility] Work Phone: 1(171) 614-685112-05-2024 Evaluation note* Diagnosis Onset Date Resolution Status Admit Date Acute Crohn's disease acute May 2:34pm Acute Crohn's disease acute Jul 1:39pm [facility] Work Phone: 1(155) 703-817609-24-2024 NoteHNO ID: [id number] Author: JULIANA NAVARRETE APRN.GM Service: Anesthesiology Author Type: Nurse Database Tester Type: Anesthesia Procedure Notes Filed: 03/19/2024 08:01 Note Text: ANESTHESIOLOGY PROCEDURE NOTE Airway General Information Procedure Start Time/Medication Administration: 03/19/2024 7:43 AM Procedure End Time: 03/19/2024 7:04 AM Patient location during procedure: OR Staffing GM: Juliana Navarrete APRN.GM Performed by: GM Indications and Patient Condition Indications for airway [...] 1 Airway not difficult SIGNATURE: Juliana Navarrete APRN.GM PATIENT NAME: Billie Yeboah DATE: March 19, 2024 TIME: 8:01 AM CSN: [id number] History and physical note* Zaida Hernandez PA-C - 02/28/2024 2:26 PM EDT Images from the original note were not included. [facility] HISTORY [...] [facility] never [facility], but has at either [place] or [facility]. Faxing for records for comparison. Checking [...] hands, unspecified osteoarthritis type Follows with outside rn neurosurgical. On daily Etodolac and has Tramadol for [...] 35 kg/m^2 Non-male patient STOP-Bang Score: 1 [id number] Score: [id number] Score: 0 ANESTHESIA FINDINGS: Intubation History: No [...] ECG COMPLETE Faxed release to [facility] 02/28/2024 for Last EKG, need for comparison. [...] fevers. Neuro: No history of TIA's, stroke, TRIM ATTACHER tumor, impaired sensorium, hemiplegia, paraplegia or quadraplegia. [...] ALLERGIES Allergen Reactions Ciprofloxacin Rash, Unknown Nitrofurantoin Barber* Other: See Comments, GI Upset Sulfamethoxazole-Tr* Other: [...] DATE: 02/28/2024 TIME: 2:26 PM PAGER/CONTACT #: [facility]09-04-2024 History and physical note* Zaida Hernandez PA-C - 02/28/2024 2:26 PM EDT Images from the original note were not included. [facility] HISTORY [...] has never had a [facility], but has at either [place] or [facility]. Faxing for records for comparison. Checking [...] hands, unspecified osteoarthritis type Follows with outside rn neurosurgical. On daily Etodolac and has Tramadol for [...] 35 kg/m^2 Non-male patient STOP-Bang Score: 1 [id number] Score: [id number] Score: 0 ANESTHESIA FINDINGS: Intubation History: No [...] ECG COMPLETE Faxed release to [facility] 02/28/2024 for Last EKG, need for comparison. [...] fevers. Neuro: No history of TIA's, stroke, TRIM ATTACHER tumor, impaired sensorium, hemiplegia, paraplegia or quadraplegia. [...] ALLERGIES Allergen Reactions Ciprofloxacin Rash, Unknown Nitrofurantoin Barber* Other: See Comments, GI Upset Sulfamethoxazole-Tr* Other: [...] 2:26 PM PAGER/CONTACT #: [facility] Instructions* Patient Instructions* Zaida Hernandez PA-C - 02/27/2024 12:07 PM EDT Images from the original note were not included. [facility] PATIENT PREOPERATIVE INSTRUCTIONS Testing that needs completed prior to surgery: - Lab work ordered today, recommend completing today at Outpatient Lab Funmilayo Odell MD has scheduled you for your procedure at this surgery center: [facility]: [phone] --[address] [place] [address]. Please enter through the entrance closest to [facility] [facility]. Please read below carefully for your [...] Procedures: - YOU MUST HAVE A RESPONSIBLE OPTICIAN TAKE YOU HOME. A CORD TIRE BUILDER OR SEWING MACHINE OPERATOR FLOORPERSON CANNOT BE MADE A RESPONSIBLE OPTICIAN. - We recommend that a responsible person [...] Advance Directive, please fax a copy to [phone] or email to for it to be [...] day. Zaida Hernandez PA-C [facility] History of Present illness Narrative* Funmilayo Odell MD - 02/23/2024 2:40 PM EDT COLORECTAL SURGERY February 23, 2024 Billie Yeboah [...] ALLERGIES Allergen Reactions Ciprofloxacin Rash, Unknown Nitrofurantoin Barber* Other: See Comments, GI Upset Sulfamethoxazole-Tr* Other: [...] exam reveals no gross blood or masses Legal Adviser present: Yes, Sarah Z Anoscopy: The patient [...] Odell MD Colorectal Surgery documented in this encounter[facility]08-30-2024 NoteHNO ID: [id number] Author: FUNMILAYO ODELL MD Service: ? Author [...] ALLERGIES Allergen Reactions Ciprofloxacin Rash, Unknown Nitrofurantoin Barber* Other: See Comments, GI Upset Sulfamethoxazole-Tr* Other: [...] exam reveals no gross blood or masses Legal Adviser present: Yes, Sarah Z Anoscopy: The patient [...] treatment plan: moderate [facility] History of Present illness Narrative* Funmilayo Odell MD - 11/03/2023 2:40 PM EDT COLORECTAL SURGERY November 03, 2023 Billie Yeboah 78 year old This consult was requested by Dr. Forbes and my final recommendations will be communicated to the requesting health care provider by way of the shared medical record for internal providers or letter via the [employer] for external providers. Chief Complaint: [...] ALLERGIES Allergen Reactions Ciprofloxacin Rash, Unknown Nitrofurantoin Barber* Other: See Comments, GI Upset Sulfamethoxazole-Tr* Other: [...] has a weak squeeze and discoordinated push Legal Adviser present: Yes, Sarah Z Anoscopy: The patient [...] Odell MD Colorectal Surgery [facility] in this encounter[facility]05-10-2024 Nurse Note* Shelly Bingham OCCA - 11/03/2023 [...] in color Wound: Temperature: No Drains: No [facility]05-10-2024 Nurse Note* Shelly Bingham OCCA - 11/03/2023 [...] Temperature: No Drains: No documented in this encounter[facility]04-17-2024 Miscellaneous Notes* Telephone Encounter - Laci Mancuso - 10/11/2023 2:15 PM EDT Appointment with Dr. Odell is scheduled. * Telephone Encounter - Laci Mancuso - 10/11/2023 10:04 AM EDT Referral Scanned in for Dr. Odell, called pt and LVM, awaiting call back to schedule. documented in this encounter[facility]10-16-2023 Evaluation note* Encounter Date Diagnosis Assessment Notes Treatment Notes Treatment Clinical Notes Mar, IBS (irritable bowel syndrome) (ICD-10 - K58.9) [facility] Other 07-12-2023 Evaluation note* Encounter Date Diagnosis Assessment Notes Treatment Notes Treatment Clinical Notes Dec, Primary osteoarthrit is of first carpometacarpal joint of left hand (ICD-10 - M18.12) Progress as tolerated Discussed DIP fusions Dec, Trigger ring finger of left hand (ICD-10 - M65.342) Dec, Left hand pain (ICD- 10 - M79.642) [facility] Other 06-14-2023 Evaluation note* Encounter Date Diagnosis [...] Left hand pain (ICD- 10 - M79.642) [facility] Other 05-04-2023 History of Present illness Narrative* Funmilayo Odell MD - 10/27/2022 2:00 PM EDT COLORECTAL SURGERY October 27, 2022 Billie Yeboah 77 year old This consult was requested by Dr. Manoj Forbes and my final recommendations will be communicated to the requesting health care provider by way of the shared medical record for internal providers or letter via the [employer] for external providers. Chief Complaint: [...] exam reveals no gross blood or masses Legal Adviser present: Yes, Maribell Joiner Anoscopy: The patient [...] Odell MD Colorectal Surgery documented in this encounter[facility]05-04-2023 Nurse Note* Maribell Joiner RN - 10/27/2022 [...] Temperature: No Drains: No documented in this [facility]03-30-2023 Evaluation note* Encounter Date Diagnosis Assessment Notes Treatment Notes Treatment Clinical Notes Aug, Hemorrhoids (ICD-10 - K64.9) [facility]* Encounter Date Diagnosis Assessment Notes Treatment Notes Treatment Clinical Notes Jul, IBS (irritable bowel syndrome) (ICD-10 - K58.9) [facility] Other 01-12-2023 NotePROCEDURE: XR HAND RT MIN [...] Electronically authenticated by: VIDYA CHAUDHARY Date: 2022-07-07 12:06[facility]10-10-2022 Evaluation note* Encounter Date Diagnosis Assessment Notes Treatment Notes Treatment Clinical Notes Mar, IBS (irritable bowel syndrome) (ICD-10 - K58.9) [facility] Other 08-10-2022 Evaluation note* Encounter Date Diagnosis [...] Other [facility] R TKA at [facility] on 12/20/2021 Overall I think she is doing very well. The stitch that popped up in the proximal aspect the incision was removed. Patient tolerated this well. Patient may continue activities as tolerated. Recommended continuing physical therapy not only for her knee but also for greater trochanteric bursitis. Continue taking swsb-ape-qiciikm anti-inflammatories as needed for assistance with swelling and pain associated with the operative extremity. I have also prescribed her some iron and vitamin C in the event that she did have some low postoperative hemoglobin. Follow-up in 6 weeks for repeat examination and long standing x-rays. [facility] Other 07-13-2022 Evaluation note* Encounter Date Diagnosis Assessment Notes Treatment Notes Treatment Clinical Notes Dec, Primary osteoarthritis of right knee (ICD-10 - M17.11) Dec, History of total right knee replacement (ICD-10 - Z96.651) Dec, Age-related osteoporosis without current pathological fracture (ICD-10 - M81.0) Dec, Other technician terminal and repeater (current) drug therapy (ICD-10 - Z79.899) Dec, Other [facility] R TKA at [facility] on 12/20/2021 Doing well. Zipline was [...] 3 view x-rays of the right knee. [facility] Other 06-17-2022 Evaluation note* Encounter Date Diagnosis [...] patient could proceed with surgery safely. The product engineering manager was vital for surgery timing and [...] plans. Prolonged services time spent: 32 minutes [facility] Other 06-17-2022 Evaluation note* Encounter Date Diagnosis Assessment Notes Treatment Notes Treatment Clinical Notes Nov, Primary osteoarthritis of right knee (ICD-10 - M17.11) [facility] Other 06-08-2022 Evaluation note* Encounter Date Diagnosis Assessment Notes Treatment Notes Treatment Clinical Notes Nov, Age-related osteoporosis without current pathological fracture (ICD-10 - M81.0) Nov, Primary osteoarthritis of right knee (ICD-10 - M17.11) Nov, Other technician terminal and repeater (current) drug therapy (ICD-10 - Z79.899) Nov, [...] replaced previously. Joints Meeting Checklist - Pharmacy: [facility] - Approach/Technique: [place] - Implants: Persona; - [...] for 4 to 5 years per her rn neurosurgical, Dr. Maldonado. All questions were answered after [...] elected to proceed with the above surgery. [facility] Other 05-18-2022 Evaluation note* Encounter Date Diagnosis [...] or absent clearances could delay their surgery. [facility] Other 02-18-2022 Evaluation note* Encounter Date Diagnosis [...] injection well. 6. Follow up 3 months [facility] Other 10-26-2021 Evaluation note* Encounter Date Diagnosis Assessment Notes Treatment Notes Treatment Clinical Notes Mar, IBS (irritable bowel syndrome) (ICD-10 - K58.9) Colonoscopy Follow up in 1 year Mar, Special screening for malignant neoplasms, colon (ICD-10 - Z12.11) [facility] Other Evaluation noteNo assessment information available [facility] Work Phone: Evaluation note* Diagnosis Hemorrhoids, unspecified hemorrhoid type- Primary [facility] Diagnosis BRBPR (bright red blood per rectum)- Primary Hemorrhage of rectum and anus Hemorrhoids, unspecified hemorrhoid type Pelvic floor dysfunction Pelvic muscle wasting [facility]* Diagnosis Hemorrhoids, unspecified hemorrhoid type- Primary [facility]* Diagnosis Preoperative examination- Primary Preoperative examination, [...] anus Rectal prolapse [facility]* Diagnosis Onset Date Resolution Status Admit Date BRBPR (bright red blood per rectum) acute November 26, 2024 9 :41am Fecal incontinence acute November 262024 9:41am Hemorrhoids acute November 26 9:41am Segmental colitis associated with diverticulosis acute November 26, 2024 9 :41am [facility] Work Phone: Evaluation note* Diagnosis Rectal prolapse- Primary Pelvic floor dysfunction Pelvic muscle wasting [facility]* Diagnosis Asymmetrical sensorineural hearing loss- Primary Sensorineural hearing loss, asymmetrical Tinnitus, left Impaired auditory discrimination, left documented in this encounter [facility]* Diagnosis 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 September 21, 2022 10:51am Note Date/Time September 21, 2022 10: 51am [facility] [address] [place] [address] Gastroenterology H&P Signed Patient: Billie Yeboah MR#: [id number] : 1945 Acct:[id number] Age/Sex: 77 / F Adm Date: 3 Loc: Room: Type: [employer] Attending Dr: Manoj Forbes MD Copies to: [...] is an appropriate candidate for the procedure. Mnaoj Forbes MD Documented By: Manoj Forbes MD 09/21/22 1050 Signed By: <Electronically signed by Manoj Forbes MD> 09/21/22 1051 [facility] Work Phone: History general Narrative - Reported* Type Description Date Surgical History THYROID Surgical History LEFT KNEE REPLAEMENT Surgical History HYSTERECTOMY Surgical History BILATERAL FOOT SURGERY Surgical History HIP REPLACEMENT RIGHT Hospitalization History Stomach pains 1 night [facility] Other History general Narrative - Reported* Type Description Date Medical History Arthritis Medical History IBS Medical History thyroid disease Medical History high cholesterol Surgical History THYROID Surgical History LEFT KNEE REPLAEMENT Surgical History HYSTERECTOMY Surgical History BILATERAL FOOT SURGERY Surgical History HIP REPLACEMENT RIGHT Hospitalization History Stomach pains 1 night [facility] Other Hospital Discharge instructions Additional Instructions DISCHARGE [...] problems. -Follow up with PCP. -Office number [phone].[facility] Work Phone: Hospital Discharge instructionsAmbulatory Orders* Referral to Colorectal Surgery Time Frame: 11/26/24, Location: None Selected [facility] Work Phone: Reason for referral (narrative)* Reason *FU 09/30 Consult for hemorrhoids. Referral faxed to Dr. Odell Diagnosis 1 Hemorrhoids (K64.9) Referral Organization [facility] Gastroenterolo sanjay Referring Provider First Name Manoj Referring Provider Last Name Leidy Referring Provider Specialty Gastroenter ology Referred [facility] Referred Provider FUNMILAYO ODELL [place] [address] [place],[address] Referred Provider Specialty Colorectal S urgery Referral Priority Routine General Notes Gege Juliana 0 09/23/2022 10:05:39 AM > Referral faxed by office. [facility] Other Reason for referral (narrative)* Outpatient Procedure (Routine) - New Request Specialty Diagnoses / Procedures Referred By Contac t Referred To Contact [facility] Diagnoses Preoperative examination Tachycardia Procedures ECG COMPLETE ECG ROUTINE ECG W/LEAST 12 LDS W/I&R Zaida Hernandez PA-C [address] [place] [address] [facility] [place] [address] [place] [address] Referral ID Status Reason Start Date Expiration Date Visits Requested Visits Authorized [id number] New Request Auto-Generat ed Referral 02/28/2024 02/27/2025 1 1 [facility] Chief Complaint and Reason for Visit Chief [...] 2:34pm Acute Crohn's disease August 21 1:39pm Chief Complaint Admit Date 8 week follow up August 21, 2024 1:39pm Reason for Visit Admit Date BRBPR (bright red blood per rectum) Constazna uary 2024 1:39pm Hemorrhoids August 21, 2024 1:39pm Irritable bowel syndrome with constipati on August 21, 2024 1:39pm Segmental colitis associated with divert iculosis August 21, 2024 1:39pm Chief Complaint Admit Date M15.0 / Z79.899 October 22, 2024 1:2 1pm 1 YR FOLLOW UP November 26, 2024 9:41a m Reason for Visit Admit Date BRBPR (bright red blood per rectum) November 26, 2024 9:41am Fecal incontinence November 26, 2024 9:41a m Hemorrhoids November 26, 2024 9:41a m Segmental colitis associated with divert iculosis November 26, 2024 9:41am Family History No Family History Records Found [...] neoplasm of colon Unkno wn Advance Directives No Advanced Directives Records Found Advance Directive Response Recorded Date/ Time Advance Directives Yes October 02 10:10am Advance Directive Response Recorded Date/ Time Advance Directives Yes October 02 9:10am Summary Purpose Reason for Referral Specialty Diagnoses / Procedures Referred By Charis t Referred To Contact [facility] Diagnoses Pelvic floor dysfunction Procedures CONSULT TO PHYSICAL THERAPY PHYSICAL THERAPY EVALUATION HIGH COMPLEX [address] [place] [address] [address] [facility] [address] [place] [address] [facility] [address] [address] Referral ID Status Reason Start Date Expiration Date Visits Requested Visits Authorized [id number] Pending Review PCP Requested Referral Auto-Generate d Referral 11/03/2023 11/02/2024 99 99 Additional Source Comments REASON FOR VISIT (unrecogniz ed section and content) Reason Comments New Patient Consult for hemorrho ids Reason Comments Received Outside Medical Records Appointment Reason Comments Rectal Bleeding Hemorrhoids Reason Comments New Patient Hemorrhoids Rectal Bleeding Reason Comments Rectal Prolapse New Reason Comments Hearing Loss Audio 01/08/25 Reason Comments Hearing Loss Follow up MRI [facility] 01/29/25 Reason Comments YAG Blurred Vision Care Teams (unrecognized sec tion and content) Team Status: Inactive Member Role Status Dates Gisella Chamorro MD Primary Care Provider Active Sydney Oswald II, MD Attending Provider Active Team Status: Active Member Role Status Dates Gisella Chamorro MD Primary Care Provider Active Team Status: Inactive Member Role Status Dates Gisella Chamorro MD Primary Care Provider Active Manoj Frobes MD Attending Provider Active Manager Company Relationship Specialty Start Date End Date Geovanna, Daryl [address] [place] [address] PCP - General 10/11/00 Team Status: Inactive Member Role Status Dates Gisella Chamorro MD Primary Care Provider Active Ivette Taylor MD Attending Provider Active Manager Company Relationship Specialty Start Date End Date Camas, Daryl [address] [place] [address] PCP - General 10/11/00 Manager Company Relationship Specialty Start Date End Date Geovanna, Daryl [address] [place] [address] PCP - General 10/11/00 Manager Company Relationship Specialty Start Date End Date Camas, Daryl [address] [place] [address] PCP - General 10/11/00 Manager Company Relationship Specialty Start Date End Date Geovanna, Daryl [address] [place] [address] PCP - General 10/11/00 02/28/24 Gisella Chamorro MD [address] [place] [address] PCP - General Family Medicine 02/29/24 Team [...] July 22, 2024 End: July 22, 2024 KATHARINA CantrellC Attending Provider Active Start: July 22, 2024 End: July 22, 2024 Team Status: Inactive Member Role Status Chaitanya Chamorro MD Primary Care Provider Active Start: August 21, 2024 End: August 21, 2024 Manoj Forbes MD Attending Provider Active S tart: August 21, 2024 End: August 21, 2024 Team Status: Inactive Member Role Status Chaitanya Chamorro MD Primary Care Provider Active Start: October 22, 2024 End: October 22, 2024 Lita Hansen MD Attending Provider Active St art: October 22, 2024 End: October 22, 2024 Team Status: Inactive Member Role Status Chaitanya Chamorro MD Primary Care Provider Active Start: November 26, 2024 End: November 26, 2024 Manoj Forbes MD Attending Provider Active S tart: November 26, 2024 End: November 26, 2024 Manager Company Relationship Specialty Start Date End Date Gisella Chamorro MD [address] [place] [facility] [place] [address] PCP - General Family Medicine 02/29/24 Manager Company Relationship Specialty Start Date End Date Gisella Chamorro MD [address] [place] [facility] [place] [address] PCP - General Family Medicine 10/30/24 Manager Company Relationship Specialty Start Date End Date Gisella Chamorro MD [address] [place] [facility] [place] [address] PCP - General Family Medicine 10/30/24 Manager Company Relationship Specialty Start Date End Date Gisella Chamorro MD [address] [place] [facility] [place] [address] PCP - General Family Medicine 10/30/24 Manager Company Relationship Specialty Start Date End Date Gisella Chamorro MD [address] [place] [facility] [place] [address] PCP - General Family Medicine 10/30/24 Manager Company Relationship Specialty Start Date End Date Gisella Chamorro MD [address] [place] [facility] [place] [address] PCP - General Family Medicine 10/30/24 Manager Company Relationship Specialty Start Date End Date Gisella Chamorro MD [address] [place] [facility] [place] [address] PCP - General Family Medicine 10/30/24 Manager Company Relationship Specialty Start Date End Date Gisella Chamorro MD [address] [place] [facility] [place] [address] PCP - General Family Medicine 10/30/24 Manager Company Relationship Specialty Start Date End Date Gisella Chamorro MD [address] [facility] [place] [address] PCP - General Family Medicine 02/12/25 INFORMATION SOURCE (unrecogn ized section and content) DATE CREATED AUTHOR 08/30/2022 [facility] DATE CREATED AUTHOR AUTHOR'S ORGANIZ ATION 03/21/2024 [facility] DATE CREATED AUTHOR AUTHOR'S ORGANIZ ATION 10/31/2024 [facility] DATE CREATED AUTHOR AUTHOR'S ORGANIZ ATION 12/22/2024 [facility] DATE CREATED AUTHOR AUTHOR'S ORGANIZ ATION 02/14/2025 [facility] EPIC DATE CREATED AUTHOR AUTHOR'S ORGANIZ ATION 02/20/2025 [facility] Source Comments (unrecognize d section and content) In the event this informatio n is protected by the Federal Confidentiality of Alcohol and Drug Abuse Patient Records regulations: The Federal rules restrict any use of the information to criminally investigate or prosecute any alcohol or drug abuse patient.[facility] Healthcare[facility] the event this information is protected by the Federal Confidentiality of Alcohol and Drug Abuse Patient Records regulations: The Federal rules restrict any use of the information to criminally investigate or prosecute any alcohol or drug abuse patient.[facility] HealthcareIn the event this information is protected by the Federal Confidentiality of Alcohol and Drug Abuse Patient Records regulations: The Federal rules restrict any use of the information to criminally investigate or prosecute any alcohol or drug abuse patient.[facility] HealthcareIn the event this information is protected by the Federal Confidentiality of Alcohol and Drug Abuse Patient Records regulations: The Federal rules restrict any use of the information to criminally investigate or prosecute any alcohol or drug abuse patient.[facility] HealthcareIn the event this information is protected by the Federal Confidentiality of Alcohol and Drug Abuse Patient Records regulations: The Federal rules restrict any use of the information to criminally investigate or prosecute any alcohol or drug abuse patient.[facility] HealthcareIn the event this information is protected by the Federal Confidentiality of Alcohol and Drug Abuse Patient Records regulations: The Federal rules restrict any use of the information to criminally investigate or prosecute any alcohol or drug abuse patient.[facility] Goals (unrecognized section and content) Goals may [...] BE BASED ON THE PRIMARY CLINICAL RECORDS. [facility]. provides no warranty or guarantee of the accuracy or completeness of information in this document.
== END 2025-02-26 09:56 | disposition home or self-care (01) ==
LOC: RAD 09:56
PROVIDERS: PCP Family Medicine; Visit Provider Internal Medicine Rheumatology
DX: D64.9 Anemia, unspecified (principal); M85.80 Other specified disorders of bone density and structure, unspecified site; M81.0 Age-related osteoporosis without current pathological fracture
CPT/HCPCS: 77080

== ENCOUNTER 2025-05-20 09:32 | Outpatient (OUT) | payer MEDICARE, SELFPAY ==
--- OUTSIDE RECORDS SUMMARY | 2011-04-20 19:00 | XMS_ITS | Continuity of Care Document ---
Author Organization [facility] Address [address] [place] [address] Phone Care Team Providers Care [employer] Superintendent Name Role Phone Lavinia VIDES, [place] Unavailable Unavailable Procedures Procedure Date Admin influenza virus vac FLU VACC PRSV FREE INC ANTIG Advance Directives Directive Yes / No Effective Date File Name No Information Encounters Encounter Description Practice Location Reason(s) For Visit Diagnoses Date Provider Providers Copied on Encounter [facility], [address], [place], [id number], [place] tel:[phone] [facility] No Information Lavinia FERRERA [place]. [address], [place], [id number], [place]. tel:[phone] Family History Family Member Type Diagnosis Age At Onset No Information Payers Payer name Insurance type Covered green party ID Authoriza tion(s) Medicare PPS MB [id number] Social History Type Description Quantity Date Captured Comments Sex Female Smoking Status No Information Chief Complaint And Reason For Visit No Information Reason For Referral Reason For Referral No Information History Of Present Illness Encounter Date Complaint History Of Prese nt Illness No Information Functional Status Date Functional Assessmen t No Information Instructions Date Instruction Additional Infor mation No Information Assessments Type Assessment Date No Information Patient Care Teams Name Effective Dates (start - stop) Status Members No Information
--- OUTSIDE RECORDS SUMMARY | 2025-05-20 09:38 | XMS_ITS | Clinical Summary ---
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 Worker Name Role Phone Eric Porter MD Primary Care Provider [phone] Allergies Active AllergyReactionsCriticalityNoted DateCommentsCiprofloxacinRashLow 05/31/2013 Other Reaction(s): Unknown Lmhjfjacflfaiz54/04/2023 Other Reaction(s): GI Upset, Other: See Comments Sulfamethoxazole-IkqgndaerswoZssrQtk03/06/2013 Other Reaction(s): Other: See Comments Medications MedicationSigDispense QuantityRefillsLast FilledStart DateEnd DateStatus amitriptyline (Elavil) 50 MG tablet 5Active dicyclomine (Bentyl) 20 MG tablet 5Active levothyroxine (Synthroid, Levoxyl) 88 MCG tablet TAKE 1 TABLET BY MOUTH ONCE DAILY FOR 30 DAYS5Active liothyronine (Cytomel) 5 MCG tablet 1 (one) time each day at the same time4Active mesalamine (Lialda) 1.2 g EC tablet 5Active rosuvastatin (Crestor) 5 MG tablet 5Active Active Problems ProblemNoted DateDiagnosed DateAcoustic slbulef6502/04/2025ongenital anomaly of inner ear02/04/2025Internal auditory canal ffozofqrhwm50/12/2025RBPR (bright red blood per rectum)02/28/20242069Cmqijxwerxjtiu85/04/2878Llhhnbyktkj09/04/2024 Rectal iubmzzza88/04/2024Osteoarthritis of both hands02/28/2024Neuropathy of both feet02/28/20240207Frwrbbubeancex19/04/2024Irritable bowel syndrome with lznwowxz65/04/2024 Family History Medical HistoryRelationNameCommentsCataractsFatherCataractsMotherRelationName StatusCommentsFatherDeceasedMotherDeceased Social History Tobacco UseTypesPacks/DayYears UsedDateSmoking Tobacco: NeverSmokeless Tobacco: Never Tobacco Cessation:Counseling Given: Not Answered Alcohol UseStandard Drinks/WeekCommentsNot Currently0 (1 standard drink = 0.6 oz pure alcohol)OccCommentsUnknownSex and Gender InformationValueDate RecordedSex Assigned at BirthNot on fileLegal XltWyyfnv95/01/2023 8:32 PM EDT Gender IdentityNot on fileSexual OrientationNot on file Last Filed Vital Signs Vital SignReadingTime TakenCommentsBlood Dfsghwql095/8608 9:01 AM EDT Nqwgk613102/04/2025 9:01 AM EDTTemperature--Respiratory Rate--Oxygen Saturation-- Inhaled Oxygen Concentration--Ggwhvy32.7 kg (147 lb)02/04/2025 9:01 AM EDTHeight 167.6 cm (5' 6 )02/04/2025 9:01 AM EDTBody Mass Index23.7302/04/2025 9:01 AM EDT Plan of Treatment Health MaintenanceDue DateLast DoneCommentsCOVID-19 Vaccine ( season) , 09/01/2020, 08/03/2020Influenza Vaccine (#1)2025 04/02/2020, 05/12/2017, 04/29/2016Pneumococcal Vaccine: 65+ YearsCompleted 05/12/2017, 04/29/2016 Insurance Care Teams Team MemberRelationshipSpecialtyStart Date Eric Porter MD [address] [facility] [place] [address] [facility]/30/24
--- OUTSIDE RECORDS SUMMARY | 2025-05-20 09:38 | XMS_ITS | Clinical Summary ---
Author Organization [facility] Address [address] [place] [address] Phone Care Team Providers Care Montessori Paraprofessional Name Role Phone Eric Porter MD Primary Care Provider [phone] Allergies Active AllergyReactionsCriticalityNoted DateComments Sulfamethoxazole-ThrbeukdvunyRszvnemgsjmZrbo74/11/2025CiprofloxacinAnaphylaxis High03/06/2025 Medications MedicationSigDispense QuantityRefillsLast FilledStart DateEnd DateStatus dicyclomine (Bentyl) 20 mg tablet Take by mouth 4 times a day before meals.Active levothyroxine (Synthroid, Levoxyl) 88 mcg tablet Take 1 tablet (88 mcg) by mouth early in the morning.. Take on an empty stomach at the same time each day, either 30 to 60 minutes prior to breakfastActive liothyronine (Cytomel) 5 mcg tablet Take by mouth once daily.Active mesalamine (Lialda) 1.2 gram EC tablet Take 1 tablet (1.2 g) by mouth once daily with breakfast. Do not crush, chew, or split.Active amitriptyline (Elavil) 50 mg tablet Take by mouth once daily at bedtime.Active rosuvastatin (Crestor) 5 mg tablet Take 1 tablet (5 mg) by mouth once daily.Active Encounters DateTypeDepartmentCare AxlcHwouspjbojv91/11/2025 1:45 PM EDTOffice Visit [facility] [address] [address] Patel Brown MD Asymmetrical sensorineural hearing loss (Primary Dx); Left acoustic neuroma (Multi) Discharge Disposition: Home03/06/2025Travelfrom Last 3 Months Social History Tobacco UseTypesPacks/DayYears UsedDateSmoking Tobacco: Never AssessedPHQ-2 AnswerDate RecordedPatient Health Questionnaire-2 Qsirs135 CommentsUnknownSex and Gender InformationValueDate RecordedSex Assigned at Not on fileLegal RllEjttju44/25/2022 1:44 PM ESTGender IdentityNot on fileSexual OrientationNot on file Last Filed Vital Signs Vital SignReadingTime TakenCommentsBlood Pressure--Pulse--Tdpquahgebd04.3 ??C (97.3 ??F)03/06/2025 1:31 PM EDTRespiratory Rate--Oxygen Saturation--Inhaled Oxygen Concentration--Weight--Height--Body Mass Index-- Plan of Treatment DateTypeDepartmentCare Team (Latest Contact Info)Elnmynzbrbq72/21/2026 9:45 AM EDTOffice Visit [facility] [address] [place] [address] Patel Brown MD [address] [place] [address] Health MaintenanceDue DateLast DoneCommentsBone Density Scan1945Lipid Panel1945Medicare Annual Wellness Visit (AWV)1945TB Test1945 TSH Level1945Vitamin B-120 1945Vitamin X54-JA06 1945Hepatitis B Surface Fgviylcw68/15/1947Hepatitis C Aqbhgteky18/15/1964DTaP/Tdap/Td Vaccines (1 - Tdap)1967Pneumococcal Vaccine (1 of 1 - PCV)1995Zoster Vaccines (1 of 2)1995RSV High Risk: (Elderly (60+) or Population) (1 - 1- dose 75+ series)2020Influenza Vaccine (#1)5COVID-19 Vaccine ( season), 09/01/2020, 08/03/2020HIB VaccinesAged Out No longer eligible based on patient's age to complete this topicHPV VaccinesAged OutNo longer eligible based on patient's age to complete this topicHepatitis A VaccinesAged OutNo longer eligible based on patient's age to complete this topic Hepatitis B VaccinesAged OutNo longer eligible based on patient's age to complete this topicIPV VaccinesAged OutNo longer eligible based on patient's age to complete this topicMeningococcal VaccineAged OutNo longer eligible based on patient's age to complete this topicRotavirus VaccinesAged OutNo longer eligible based on patient's age to complete this topic Insurance * Guarantor: Billie Yeboah AAccount TypeRelation to PatientDate of PhoneBilling AddressPersonal/IygjbfIfil95/15/1946 [address] [place] [address] Care Teams Team MemberRelationshipSpecialtyStart Date Eric Porter MD [address] [facility] [place] [address] PCP - GeneralFamily Medicine02/12/25
--- OUTSIDE RECORDS SUMMARY | 2025-05-20 09:38 | XMS_ITS | Clinical Summary ---
Author Organization [facility] Address [address] [place] [address] Care Team Providers Care Service Dismantler Name Role Phone Eric Porter MD Primary Care Provider [phone] Allergies Active AllergyReactionsCriticalityNoted DateCommentsCiprofloxacinRash,Unknown 05/31/2013Nitrofurantoin Monohyd/M-CrystOther: See Comments,GI Upset10/27/2022 Sulfamethoxazole-TrimethoprimOther: See Comments,Rash05/31/2013 Medications MedicationSigDispense QuantityRefillsLast FilledStart DateEnd DateStatus amitriptyline (ELAVIL) 50 mg tablet Take 50 mg by mouth once daily.09/21/2022ctive levothyroxine (SYNTHROID) 112 mcg tablet Take 112 mcg by mouth once daily.04/29/2021ctive dicyclomine (BENTYL) 20 mg tablet Take 20 mg by mouth twice daily.08/23/2022ctive rosuvastatin (CRESTOR) 5 mg tablet Take 5 mg by mouth once daily.08/23/2022ctive cholecalciferol (VITAMIN D3) 5,000 unit tab Take 5,000 Units by mouth once daily.04/29/2021ctive Etodolac 500 mg tablet Etodolac Active 500 MG PO Twice daily April 29, 2021 12:00am106/29/2020ctive traMADol (ULTRAM) 50 mg tablet as needed for pain.12/12/2023ctive Mesalamine (LIALDA) 1.2 gram EC tablet 11/26/2024tive Active Problems ProblemNoted DateDiagnosed DateBRBPR (bright red blood per rectum)02/28/2024 Rectal zgisjflx28/04/6573Uuabofgjiyz78/04/0781Dqslintmemaxpa36/04/2024 Osteoarthritis of both hands02/28/20240664Ysgrdchkrvubal85/04/2024Neuropathy of both feet02/28/2024Irritable bowel syndrome with yvzpvuhj61/04/2024 Family History Medical HistoryRelationCommentsHeartFatherage 80'sAlzheimer's DiseaseMother RelationStatusCommentsFatherDeceasedMotherDeceased Social History Tobacco UseTypesPacks/DayYears UsedDateSmoking Tobacco: NeverSmokeless Tobacco: Never Tobacco Cessation:Counseling Given: Not Answered Alcohol UseStandard Drinks/WeekCommentsNever0 (1 standard drink = 0.6 oz pure alcohol)Area Deprivation IndexAnswerDate RecordedNational Score (1-100), lower number is lower nowf070310/27/2022State Score (1-10), lower number is lower risk3 10/27/2022ata from: https://www.neighborhoodatlas.medicine.[facility].edu/. Last address used for [address]/27/2022CommentsNoSex and Gender InformationValueDate RecordedSex Assigned at DrvhyCrefra51/03/2024 11:09 AM EDTLegal KfaVxbtxu19/02/2012 9:19 AM ESTGender ZdadsnwhQezhhq57/03/2024 11:09 AM EDTSexual ByapdohziaaKbympwhp04/03/2024 11:09 AM EDT Last Filed Vital Signs Vital SignReadingTime TakenCommentsBlood Mhfmxfix939/8406 3:45 PM EDT Kpifg541312/20/2024 3:45 PM SBRFfdqjbgrzsv99.4 ??C (97.5 ??F)12/20/2024 3:45 PM EDTRespiratory Lwrc004103/19/2024 10:45 AM EDTOxygen Adtfejuxyr58%12/20/2024 3:45 PM EDTInhaled Oxygen Concentration--Pgpcqw61.8 kg (147 lb 4.3 oz)02/28/2024 2:29 PM KUIPhtrkc483.6 cm (5' 6 )02/28/2024 2:29 PM EDTBody Mass Index23.77002/28/2024 2:29 PM EDT Plan of Treatment Health MaintenanceDue DateLast DoneCommentsAnnual PCP Team Chronic Disease Visit 1963Anxiety Tgbeeglmy72/15/1964Depression Hoeqnlxzt57/15/1964DTaP,Tdap,Td Vaccine (1 - Tdap)1964Shingrix Vaccine (1 of 2)1995Medicare Annual Wellness Visit06/26/2010one Density Webjwxmnd66/15/2011RSV Vaccine (1 - 1-dose 75+ series)2020dvance Directive Amdqhbvrar53/01/2025Covid-19 Vaccine ( - season)/, 09/01/2020, 08/03/2020Influenza Vaccine (#1)/, 04/02/2020, 05/12/2017, Additional history exists Diabetes Yxrodsius13neumococcal Vaccine: 50+Completed 05/12/2017, 04/29/2016 Procedures Procedure NamePriorityDate/TimeAssociated DiagnosisCommentsCOMPREHENSIVE METABOLIC ZQYJRKrbleff56/04/2024 3:12 PM EDT Preoperative examination Tachycardia from Last 3 Months or Most Recently Relevant to Health Maintenance Results * (ABNORMAL) COMPREHENSIVE METABOLIC PANEL (02/28/2024 3:12 PM EDT)Component ValueRef RangeTest MethodAnalysis TimePerformed AtPathologist Signature Protein, Total7.56.3 - 8.0 g/dL02/28/2024 4:38 PM [facility] Albumin4.13.9 - 4.9 g/dL02/28/2024 4:38 PM [facility]ORYCalcium, Total9.48.5 - 10.2 mg/dL02/28/2024 4:38 PM [facility] Bilirubin, Total0.50.2 - 1.3 mg/dL02/28/2024 4:38 PM [facility] LABORATORYAlkaline Ssczmcewebv2821 - 123 U/L02/28/2024 4:38 PM [facility] WWAAWKRBKHHTU8466 - 35 U/L02/28/2024 4:38 PM [facility] NULQNDQTPPCKD044 - 38 U/L02/28/2024 4:38 PM [facility]ATORYGlucose 107(H)74 - 99 mg/dL02/28/2024 4:38 PM [facility]ORATORYComment: The [place] Diabetes Association (ADA) provides guidance for cutoff values for fasting glucose andrandom glucose. The ADA defines fasting as no [...] Standards of Medical Care in Diabetes 2016, [place] [employer]. Diabetes Care. 2016.39(Suppl 1). JDY876 - 21 mg/dL02/28/2024 4:38 PM [facility]ORYCreatinine0.81 0.58 - 0.96 mg/dL02/28/2024 4:38 PM [facility] TRNNDSANZLBrxlsp434806 - 144 mmol/L02/28/2024 4:38 PM [facility]ORYPotassium4.43.7 - 5.1 mmol/L02/28/2024 4:38 PM [facility] LHOBQRJEUJHjvygvgx93149 - 107 mmol/L 02/28/2024 4:38 PM [facility] DQZAFGQSZCXD67036 - 30 mmol/L02/28/2024 4:38 PM [facility] LABORATORYAnion Mmf058 - 15 mmol/L02/28/2024 4:38 PM [facility]ORATORYEstimated Glomerular Filtration Rate74>=60 mL/min/1.73m 02/28/2024 4:38 PM [facility]ORATORYComment:Estimated Glomerular Filtration Rate (eGFR) is calculated using the 2020 CKD-EPI creatinine equation. This equation utilizes serum creatinine, sex, and age as parameters. The creatinine assay has traceable calibration to isotope dilution-mass spectrometry. Refer to KDIGO guidelines for clinical interpretation. In patients with unstable renal function, e.g. those with acute kidney injury, the eGFRmay not accurately reflect actual GFR.Specimen (Source)Anatomical Location / LateralityCollection Method / VolumeCollection TimeReceived TimeBloodBLOOD SPECIMEN / UnknownVenipuncture / Sgdwawc1002/28/2024 3:12 PM EDT02/28/2024 3:13 PM EDT Narrative Authorizing ProviderResult TypeResult StatusJecathi PETTIT-CLABORATORYFinal ResultPerforming OrganizationAddressCity/State/ZIP CodePhone Number [facility] [address] [address] [place] [address], from Last 3 Months or Most Recently Relevant to Health Maintenance Insurance Care Teams Team MemberRelationshipSpecialtyStart Date Eric Porter MD [address] [facility] [place] [address] PCP - GeneralFamily Medicine02/29/24
--- OUTSIDE RECORDS SUMMARY | 2025-05-20 09:39 | XMS_ITS | CCD ---
Author Organization [facility] Care Team Providers Care Art Objects Supervisor Name Role Phone Manoj Forbes Unavailable Sydney Oswald II Unavailable MD Gisella Chamorro Primary Care Provider [phone] MD Sydney Oswald II Attending Provider MD Gisella Chamorro Primary Care Provider [phone] MD Sydney Oswald II Attending Provider [phone] KENC, DR HOOVER Admitting Unavailable MISC, DR HOOVER Attending Unavailable HOY ., DR OBANDO Primary Care Unavailable MISC, DR HOOVER Consulting Unavailable HOY ., DR OBANDO Admitting Unavailable HOY ., DR OBANDO Attending Unavailable HOY ., DR OBANDO Primary Care Unavailable HOY ., DR OBANDO Consulting Unavailable ZIEBER, DR VIDYA Strong Consulting Unavailable HOY ., DR OBANDO Admitting Unavailable HOY ., DR OBANDO Attending Unavailable HOY ., DR OBANDO Primary Care Unavailable HOY ., DR OBANDO Consulting Unavailable HOY ., DR OBANDO Admitting Unavailable HOY ., DR OBANDO Attending Unavailable HOY ., DR OBANDO Primary Care Unavailable HOY ., DR OBANDO Consulting Unavailable GLENDALE, DR FUNMILAYO Ramirez Consulting Unavailable TYRONE, DR [...] Unavailable MD Gisella Chamorro Primary Care Provider MD Manoj Forbes Attending Provider GeovannaDaryl Primary Care Provider UnavailMD Ivette Treadwell Attending Provider [phone] MD Gisella Chamorro Primary Care Provider [phone] MD Sydney Oswald II Attending Provider Ivette Taylor Unavailable [facility], Daryl Primary Care Provider Unavailabl e Geovanna, Daryl Primary Care Provider Unavailabl e [facility], Daryl Primary Care Provider Unavailabl Gisella Han MD Primary Care Provider [phone] FUNMILAYO ODELL Attending Unavailable FUNMILAYO ODELL Admitting Unavailable FUNMILAYO ODELL Referring Unavailable ZAIDA HERNANDEZ Referring Unavailable MD Gisella Chamorro Primary Care Provider [phone] MD Manoj Forbes Attending Provider Gisella Chamorro MD Primary Care Provider [phone] Manoj Forbes MD Attending Provider [phone] [place]me[place] DEMONSTRATOR KNITTING-C, Medina L Attending Provider Gisella Chamorro MD Primary Care Provider [phone] Lita Hansen MD Attending Provider Lita Hansen Admitting Unavailable Lita Hansen Attending Unavailable Gisella Chamorro Primary Care Unavailable Gisella Chamorro M Primary Care Unavailable Manoj Forbes Admitting Unavailable Manoj Forbes Attending Unavailable Gisella Chamorro Primary Care Unavailable Obermeyer, Medina L Admitting Unavailable Obermeyer, Medina L Attending Unavailable Gisella Chamorro M Primary Care Unavailable Manoj Forbes Admitting Unavailable Manoj Forbes Attending Unavailable FUNMILAYO ODELL Attending Unavailable MANOJ FORBES Referring Unavailable GISELLA CHAMORRO Primary Care Unavailable FUNMILAYO ODELL Attending Unavailable MANOJ FORBES Referring Unavailable Gisella Chamorro MD Primary Care Provider [phone] Gisella Chamorro MD Primary Care Provider [phone] NORA SCHROEDER Attending Unavailable CLIFFORD ESPINOZA Attending Unavailable GISELLA CHAMORRO Referring Unavailable CLIFFORD ESPINOZA Attending Unavailable WILLIAM BARKLEY Attending Unavailable PATEL WYLIE Attending Unavailable CLIFFORD ESPINOZA Referring Unavaila ble GISELLA CHAMORRO Primary Care Unavailable PATEL WYLIE Referring Unavailable GISELLA CHAMORRO Primary Care Unavailable Allergies Allergy ClassificationReported Allergen(s)Allergy TypeDate of OnsetReaction(s) Facility (20 sources)Ciprofloxacin; Translations: [CIPROFLOXACIN]Drug Tqxohjh83-42-1269 Rash, Unknown, [facility]axisFort [facility] ([facility] sources)NITROFURANTOIN, MACROCRYSTALS / Nitrofurantoin, MonohydrateDrug Rewmtfl90-66-4982Drzqa: See Comments, [facility] ([facility] sources)Sulfamethoxazole / TrimethoprimDrug Sacgyim94-68-4029Zeubr: See Comments, Rash, AnaphylaxisMemorial [facility] (3 sources)Ciprofloxacin; Translations: [Cipro]Drug Uowteoe45-71-6075Ne[facility]ftzVhsClermont [facility] (3 sources)Sulfamethoxazole / Trimethoprim; Translations: [Bactrim]Drug Allergy 07-17-2201ZjpxzatItdClermont County Hospital Rep[facility] (20 sources)Nitrofurantoin; Translations: [nitrofurantoin]Drug Uurbcnc18-17-6430 Rash, Rash, vomiting,[facility] (11 sources)Sulfamethoxazole; Translations: [sulfamethoxazole]Drug Allergy 75-74-5031Vyrl, Rash, vomiting, [facility] (11 sources)Trimethoprim; Translations: [trimethoprim]Drug Bzhconq31-58-6893 Rash, Rash, vomiting, [facility] (1 source)NitrofurantoinDrug Rnvedhb55-90-6114YhmMemorial Health System [facility] (4 sources)Sulfamethoxazole / Trimethoprim; Translations: [SULFAMETHOXAZOLE-TRIMETHOPRIM]Drug Kiihfwu38-97-5953VeezibkltBarberton Citizens Hospital [facility] (2 sources)NITROFURANTOIN MONOHYD/M-CRYST; Translations: [NITROFURANTOIN MONOHYD/M-CRYST]Propensity to adverse reactions to drug (disorder)10-27-2022 [facility] (1 source)CiprofloxacinDrug Nwuppka33-19-7413HvolsqxqtFort Hamilton Hospital Repository Medications Current Medications MedicationDrug Class(es)DatesSig (Normalized)Sig (Original)acetaminophen 500 mg oral tablet (5 sources)Start: 27-35-1050zwbd 2 tablets by mouth every eight hours for pain Acetaminophen 500 MG 2 tablets for pain Orally every 8 hrs for 30 days MED TO BED UPON DISCHARGE DOS: 12/21/2021 Nov, Activeamitriptyline hydrochloride 50 mg oral tablet (20 sources)Tricyclic AntidepressantStart: 86-28-1846nmbicbbnflque (Elavil) 50 MG tablet 07/29/2024 ActiveStart: 04-29-2021 End: 62-13-6355tlbm 2 tablets by mouth once daily at bedtimeAmitriptyline 25 mg tablet Discontinued 50 MG PO Daily at bedtime April 29, 2021 12:00am August 252022 10:01amStart: 04-29-2021 End: 82-33-8343qxcl 50 mg by mouth once daily at bedtimeAmitriptyline Discontinued 50 MG PO Daily at bedtime April 29, 2021 12:00am September 21, 2022 10:01amComment on above:Take 50 mg by mouth once daily.ascorbic acid 500 mg oral tablet (1 source)Vitamin CStart: 03-85-4300gqyt 1 tablet by mouth every twenty-four hoursVitamin C 500 MG 1 tablet Orally Once a day for 14 day(s) Jan, Activecelecoxib 200 mg oral capsule (8 sources)Nonsteroidal Anti-inflammatory DrugStart: 09-83-4475piwr 1 capsule by mouth every twelve hoursCelecoxib 200 MG 1 capsule with food Orally Twice a day for 30 day(s) MED TO BED UPON DISCHARGE DOS: 12/21/2021 08 Nov, 2021 Active cholecalciferol 0.125 mg oral tablet (16 sources)Vitamin DStart: 16-92-3249gvdl 1 tablet by mouth once daily cholecalciferol (VITAMIN D3) 5,000 unit tab Take 5,000 Units by mouth once daily. 04/29/2021 ActiveStart: 04-29-2021 End: 21-21-5457xvgf 1 tablet by mouth once dailyCholecalciferol (Vitamin D3) (Vitamin D3) 125 mcg (5,000 unit) Tablet Discontinued 125 MCG PO DailyApril 29, 2021 12:00am April 23, 2024 11:01amComment on above:Take 5,000 Units by mouth once daily.dicyclomine hydrochloride 20 mg oral tablet (20 sources)AnticholinergicStart: 13-66-6706hfmiknszxdr (Bentyl) 20 MG tablet 12/04/2024 ActiveStart: 01-12-2015 End: 78-34-6152jodg 1 tablet by mouth twice dailydicyclomine (BENTYL) 20 mg tablet Take 20 mg by mouth twice daily. 08/23/2022 Activedicyclomine (Bentyl) 20 mg tablet Take by mouth 4 times a day before meals. ActiveComment on above:Take 20 mg by mouth twice daily.docusate sodium 50 mg / sennosides, retirement 8.6 mg oral tablet (5 sources)Start: 56-08-0979alze 2 tablets by mouth every twenty-four hours Senokot S 8.6-50 MG 2 tablets Orally Once a day for 30 day(s) MED TO BED UPON DISCHARGE DOS: 12/21/2021 Nov, Activeetodolac 500 mg oral tablet (20 sources)Nonsteroidal Anti-inflammatory DrugStart: 04-29-2021 End: 69-04-7133Gtrouwea 500 mg tablet Etodolac Active 500 MG PO Twice daily April 29, 2021 12:00am 04/29/2021 ActiveStart: 06-44-2438iwdj 500 mg by mouth once dailyEtodolac Active 500 MG PO Daily April 29, 2021 12:00am ferrous sulfate 325 mg oral tablet (7 sources)Start: 52-19-0490ojgu 1 tablet by mouth every eight hoursIron 325 (65 Fe) MG 1 tablet Orally Three times a day for 30 day(s) Jan, Active levothyroxine sodium 0.088 mg oral tablet (20 sources)l-ThyroxineStart: 56-36-2804izbj 1 tablet by mouth once daily levothyroxine (Synthroid, Levoxyl) 88 MCG tablet TAKE 1 TABLET BY MOUTH ONCE DAILY FOR 30 DAYS 12/28/2024 ActiveStart: 20-00-9885twbo 1 tablet by mouth once dailylevothyroxine (SYNTHROID) 112 mcg tablet Take 112 mcg by mouth once daily. 04/29/2021 Activetake 1 tablet by mouth once daily in the morningLevothyroxine Sodium 112 MCG 1 tablet on an empty stomach in the morning Orally Once a day for 30 day(s) ActiveComment on above:Take 112 mcg by mouth once daily.liothyronine sodium 0.005 mg oral tablet (10 sources)l-TriiodothyronineStart: 82-01-4311rsnsmmrconpa (Cytomel) 5 MCG tablet 1 (one) time each day at the same time 06/11/2024 Activemesalamine 1200 mg delayed release oral tablet (19 sources)AminosalicylateStart: 43-41-1247quzcgmdfft (Lialda) 1.2 g EC tablet 11/26/2024 ActiveStart: 06-21-2024 End: 47-47-6032icaw 4 tablets by mouth once dailyMesalamine (Lialda) 1.2 gram tablet,delayed release (DR/EC) Active 4.8 GM PO Daily 360 90 November 10:02amrosuvastatin calcium 5 mg oral tablet (20 sources)HMG-CoA Reductase InhibitorStart: 44-44-4181ugjiiwfhzeym (Crestor) 5 MG tablet 12/04/2024 ActiveStart: 04-29-2021 End: 28-54-7767zdxg 1 tablet by mouth once dailyrosuvastatin (CRESTOR) 5 mg tablet Take 5 mg by mouth once daily. 08/23/2022 ActiveComment on above:Take 5 mg by mouth once daily.simvastatin 5 mg oral tablet (5 sources)HMG-CoA Reductase InhibitorStart: 27-38-5244hmlj 1 tablet by mouth once dailySimvastatin 5 mg tablet Active 5 MG PO Daily September 21, 2023 12:00am traMADol hydrochloride 50 mg oral tablet (20 sources)Opioid AgonistStart: 24-48-0537knrSLBfx (ULTRAM) 50 mg tablet as needed for pain. 12/12/2023 ActiveStart: 11-67-5980nghg 1 tablet by mouth every six hours as needed for paintraMADol HCl 50 MG 1 tablet as needed for pain Orally every 6 hrs for 10 days Dec, Not-TakingStart: 04-29-2021 End: 28-71-7266qjqd 1 tablet by mouth twice daily as needed for painTramadol 50 mg tablet Discontinued 50 MG PO Twice daily as needed for Pain April 29, 2021 12:00am September 21, 2022 10:01amTramadol & Dietary Manage Prod 50 MG (14 sources)Tramadol & Dietary Manage Prod 50 MG as directed Orally prn Active Tramadol & Dietary Manage Prod 50 MG as directed Orally ActiveVitamin D3 1000 UNIT (14 sources)take 1 tablet by mouth once dailyVitamin D3 1000 UNIT 1 tablet Orally Once a day for 30 day(s) Active Completed/Discontinued Medications MedicationDrug Class(es)DatesSig (Normalized)Sig (Original)aspirin 81 mg oral tablet (8 sources)Platelet Aggregation Inhibitor, Nonsteroidal Anti-inflammatory Drug Start: 81-13-6221uqgd 1 tablet by mouth twice dailyAspirin 81 MG 1 tablet Orally twice a day for 35 days MED TO BED UPON DISCHARGE DOS: 12/21/2021 Nov, Not-Takingcefadroxil 500 mg oral capsule (8 sources)Cephalosporin AntibacterialStart: 14-69-1885zcbl 1 capsule by mouth every twelve hoursCefadroxil 500 MG 1 tablet Orally every 12 hrs for 7 days MED TO BED UPON DISCHARGE DOS: 12/21/2021 Nov, Not-Takingmorphine sulfate 15 mg extended release oral tablet (8 sources)Opioid AgonistStart: 25-55-6659thky 1 tablet by mouth every twelve hours for painMorphine Sulfate ER 15 MG 1 tablet for breakthrough pain only Orally every 12 hrs for 5 days MED TOBED UPON DISCHARGE DOS: 12/21/2021 Nov, Not-Takingomeprazole 20 mg delayed release oral capsule (20 sources)Proton Pump InhibitorStart: 09-21-2023 End: 65-94-5792Eluismmomx 20 mg capsule,delayed release(DR/EC) Discontinued 20 MG PO Daily December 05, 2023 12:00am April 23, 2024 11:01am Take 1 capsule orally 30 minutes before morning meal.Start: 04-29-2021 End: 24-31-1122pcuc 1 capsule by mouth once dailyOmeprazole 20 mg capsule,delayed release(DR/EC) Discontinued 20 MG PO Daily April 29, 2021 12:00am December 07, 2021 1:17pmondansetron 8 mg oral tablet (8 sources)Serotonin-3 Receptor AntagonistStart: 58-28-2459iebw 1 tablet by mouth three times daily as needed for nauseaOndansetron HCl 8 MG 1 tablet as needed for nausea Orally three times a day for 10 days MED TO BED UPON DISCHARGE DOS: 12/21/2021 Nov, Not-TakingoxyCODONE hydrochloride 5 mg oral tablet (8 sources)Opioid AgonistStart: 17-46-9594mhan 1 tablet by mouth every four hours as needed for painoxyCODONE HCl 5 MG 1 tablet as needed for pain Orally every 4 hrs for 10 days MED TO BED UPON DISCHARGE DOS: 12/21/2021 Nov, Not-Takingpolyethylene glycol 3350 51133 mg powder for oral solution (8 sources)Osmotic LaxativeStart: 89-15-0041SndlNgg 17 GM 1 packet mixed with 8 ounces of fluid Orally Once a day for 7 days MED TO BED UPON DISCHARGE DOS: 12/21/2021 Nov, Not-TakingSod Picosulf-Mag Ox-Citric Ac (4 sources)Start: 04-23-2024 End: 20-11-2457valv 1 dose by mouth once dailySod Picosulf-Mag Ox-Citric Ac (Clenpiq) 10 mg-3.5 gram- 12 gram/175 mL solution Discontinued 175 MLPO Daily 350 0 April 23, 2024 12:00am May 30, 2024 3:41pm Take first dose at 3pm evening before colonoscopy; second dose at 9 pm night before colonoscopy Start: 04-23-2024 End: 80-87-4706prfy 1 dose by mouth once dailySod Picosulf-Mag Ox-Citric Ac (Clenpiq) 10 mg-3.5 gram- 12 gram/175 mL solution Discontinued 175 MLPO Daily 350 0 April 22, 2024 11:00pm May 30, 2024 2:41pm Take first dose at 3pm evening before colonoscopy; second dose at 9 pm night before colonoscopy triamcinolone acetonide 40 mg/ml injectable suspension (19 sources)CorticosteroidStart: 98-77-5751Nilkybi-40 Nov, 20 mgStart: 00-97-6058Ycnrpir -40 mg Jul, 120 mg Problems Active Problems Problem ClassificationProblemDateDocumented DateEpisodic/ChronicCataract (1 source)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; Translations: [Other secondary cataract, left eye]56-39-0187QjrmcxtVdrctwnkof and other anemia (1 source)Anemia, unspecified; Translations: [ANEMIA UNSPECIFIED]Onset: 97-99-2006LdbgpppnPlyxlymfsd and other anemia (3 sources)Iron deficiency anemia; Translations: [Iron deficiency anemia, unspecified]EpisodicDiabetes mellitus without complication (1 source)Other abnormal glucose; Translations: [OTHER ABNORMAL GLUCOSE]Onset: 05-20-7503SfauemmoIeqgnflqy of lipid metabolism (20 sources)Pure hypercholesterolemia, unspecified; Translations: [Hyperlipidemia, unspecified]Onset: 94-85-7153ZqmletsCrtlanxsrxt deficiencies (2 sources)Vitamin D deficiency, unspecified; Translations: [VITAMIN D DEFICIENCY UNSPECIFIED]Onset: 48-10-4853VuzeqsrHcmpnbaycdgact (20 sources)Osteoarthritis of knee; Translations: [Unilateral primary osteoarthritis, left knee]Onset: 08-13-2021 Resolved: 25-79-8322ZhqreasUipgxlfixuvl (17 sources)Primary osteoporosis; Translations: [Age-related osteoporosis without current pathological fracture]Onset: 11-10-2021 Resolved: 04-97-8589DyzkqgwSmuuw aftercare (6 sources)Patient encounter status; Translations: [Aftercare following joint replacement surgery]ChronicOther aftercare (5 sources)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; Translations: [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]Onset: 11-10-2021 Resolved: 14-02-5010QitetqlkRrumx aftercare (5 sources)assisted current use of non-steroidal anti-inflammatory drug; Translations: [assisted (current) use of non-steroidal anti-inflammatories (NSAID)]82-04-1622IoqxgimeGtlvi and unspecified benign neoplasm (6 sources)Acoustic neuroma; Translations: [Benign neoplasm of cranial nerves] Onset: 306628-69-0464GemdiwvOjrky and unspecified benign neoplasm (2 sources)Acoustic neuroma of left vestibular nerve; Translations: [Benign neoplasm of cranial nerves]75-19-8191FvicipqYqyjf and unspecified benign neoplasm (2 sources)Benign neoplasm of cranial nerves; Translations: [Benign neoplasm of cranial nerves (Multi)]Onset: 46-88-1065IqpmdxyNbmwg bone disease and musculoskeletal deformities (1 source)Juvenile osteochondrosis of pelvis; 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]Onset: 26-39-8874ZsajpugMjgvr congenital anomalies (4 sources)Congenital anomaly of inner ear; 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]Onset: 608092-07-5919JsqanplJpbrq congenital anomalies (4 sources)Disorder of inner ear; 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]Onset: 455820-86-9370RfdtdjaDgmhs connective tissue disease (14 sources)History of repair of hip joint; Translations: [Presence of right artificial hip joint]ChronicOther connective tissue disease (13 sources)History of total replacement of right hip joint; Translations: [Presence of right artificial hip joint]ChronicOther connective tissue disease (1 source)Presence of right artificial hip jointOnset: 08-13-2021 Resolved: 35-80-5287AdyfiqzMyfbz connective tissue disease (8 sources)History of right total knee replacement; Translations: [Presence of right artificial knee joint]ChronicOther connective tissue disease (2 sources)Presence of right artificial knee jointOnset: 01-05-2022 Resolved: 67-82-4209DeghywmDhcej connective tissue disease (6 sources)Artificial knee joint present; Translations: [Presence of right artificial knee joint]ChronicOther connective tissue disease (2 sources)Trigger finger, left ring fingerEpisodicOther connective tissue disease (2 sources)Pain in left handEpisodicOther connective tissue disease (3 sources)Pelvic floor dysfunction; Translations: [Other specified disorders of muscle]39-69-0119YydazwhkLctxx connective tissue disease (1 source)Other specified disorders of muscle; Translations: [Pelvic floor dysfunction]Onset: 81-33-0075TnezbjvyNjqfz ear and sense organ disorders (2 sources)Asymmetrical sensorineural hearing loss; Translations: [Sensorineural hearing loss, bilateral]40-21-0253InjhfrwSpqsc ear and sense organ disorders (1 source)Tinnitus of left ear; Translations: [Tinnitus, left ear]01-08-2025 EpisodicOther ear and sense organ disorders (1 source)Impaired auditory discrimination; Translations: [Other abnormal auditory perceptions, left ear]64-26-1449IdqneykgVwcbs ear and sense organ disorders (2 sources)Sudden idiopathic hearing loss; Translations: [Sudden idiopathic hearing loss, left ear]81-78-4496BunkvdaaFyvkp gastrointestinal disorders (14 sources)Irritable bowel syndrome; Translations: [Irritable bowel syndrome without diarrhea]ChronicOther gastrointestinal disorders (5 sources)Irritable bowel syndrome without diarrhea; Translations: [IBS (irritable bowel syndrome) K58.9]Onset: 04-20-2021 Resolved: 73-45-6289VdjdwtcGrnto gastrointestinal disorders (15 sources)Irritable bowel syndrome with diarrhea; Translations: [Irritable bowel syndrome with diarrhea]Onset: 188026-18-3003RaosyuqCjyjx gastrointestinal disorders (1 source)Irritable bowel syndrome with diarrhea; Translations: [Irritable bowel syndrome with diarrhea]Onset: 24-96-1660GzxtcibZqezz gastrointestinal disorders (5 sources)Irritable bowel syndrome characterized by constipation; Translations: [Irritable bowel syndrome with constipation]16-43-4539VtefwsgZmsri gastrointestinal disorders (2 sources)Irritable bowel syndrome with constipation; Translations: [Irritable bowel syndrome]Onset: 509919-13-5430PpvwhuiCujev gastrointestinal disorders (1 source)Incontinence of feces; Translations: [Full incontinence of feces] 20-83-4048RudmfoxcLneqs gastrointestinal disorders (1 source)Full incontinence of feces; Translations: [Full incontinence of feces] 28-02-4477EzagelisOthar nervous system disorders (15 sources)Bilateral peripheral neuropathy of lower limbs; Translations: [Unspecified mononeuropathy of bilateral lower limbs]Onset: 779792-56-6348 ChronicOther nervous system disorders (1 source)Unspecified mononeuropathy of bilateral lower limbs; Translations: [Neuropathy of both feet]Onset: 27-95-3201IhnobngDzdee screening for suspected conditions (not mental disorders or infectious disease) (19 sources)Patient encounter status; Translations: [Encounter for screening for malignant neoplasm of colon]Onset: 04-20-2021 Resolved: 85-12-3799XhaphkwuFtyzx skin disorders (4 sources)Localized swelling, mass and lump, right upper limb; Translations: [LOC SWELL MASS LUMP RT UPPER LIMB]Onset: 99-55-8430WwwxbbauNtyscjvd enteritis and ulcerative colitis (11 sources)Crohn's disease; Translations: [Crohn's disease, unspecified, without complications]50-46-0486PhrpuerNjpkqpg disorders (17 sources)Hypothyroidism, unspecified; Translations: [Hypothyroidism]Onset: 780371-77-7205YmilyqsMcwvcxi tract infections (2 sources)Urinary tract infectious disease; Translations: [Urinary tract infection, site not specified]Onset: 474055-60-4854Qeqppabk Past or Other Problems Problem ClassificationProblemDateDocumented DateEpisodic/ChronicAnal and rectal conditions (19 sources)Rectal prolapse; Translations: [Rectal prolapse]Onset: 02-28-2024 97-79-5233McqyzfonKonxlbp dysrhythmias (16 sources)Tachycardia; Translations: [Tachycardia, unspecified]Onset: 486109-51-1222XetjvlomMhwojxzyhdxdldmk hemorrhage (20 sources)Gastrointestinal hemorrhage; Translations: [Hemorrhage of anus and rectum]Onset: 013019-35-0643AmgtdgxkOisejsajhnq (12 sources)Unspecified hemorrhoids; Translations: [Hemorrhoids]Onset: 24-20-6426WrcqgpfoBsejl connective tissue disease (1 source)Trochanteric bursitis, right hipOnset: 02-02-2022 Resolved: 24-95-4124KohqaftzKokvueid codes; unclassified (1 source)Family history of malignant neoplasm of breast; Translations: [FAMILY HX MALIG NEOPLASM OF BREAST]Onset: 71-58-3913QndatokbTeawlakbylyg (1 source)Onset: Results Test NameValueInterpretationReference RangeFacilityMR TRANSFER OF OUTSIDE FILMS on 29-29-0421JC TRANSFER OF OUTSIDE FILMSOutside images for comparison or treatment purposes, not interpreted by Radiologists.[facility] Interpretation of outside studyon 99-99-6298Fnfumlw images for comparison or treatment purposes, not interpreted by Radiologists.IMAGINGMRI HEAD/BRAIN WO/W CONTRon 01-30-[address] [address] Magnetic Resonance Report Signed Patient: BILLIE YEBOAH MR#: [id number] : 1945 Acct:[id number] Age/Sex: 79 / F ADM Date: 01/29/25 Loc: LAB Attending Dr: Clifford Espinoza M.D. Ordering Physician: Clifford Espinoza M.D. Date of Service: 01/29/25 Procedure(s): MR head/brain wo/w con Accession Number(s): [id number] cc: Gisella Chamorro M.D.; Clifford Espinoza M.D. [place] [id number] Patient Name: BILLIE YEBOAH MRN: [id number] date: 1945 Sex: F Assigned Patient Location: LAB Current Patient Location: LAB Accession/Order Number: [id number] Exam Date: 01/29/2025 15:50 Report Date: 01/29/2025 [...] Knight M.D. 01/29/2025 3:58 PM Dictation Location: [place] [address] Electronically authenticated by: [id number] Y Date: 01/29/2025 15:58 Dictated By: Raudel Knight M.D. Signed By: 01/29/25 1609 DD/ 1558 TD/TT: Energy Manager:LIAMHRadiology, Radiologist, - 01/29/2025 [place] [address] Magnetic Resonance Report Signed Patient: BILLIE YEBOAH MR#: [id number] : 1945 Acct:[id number] Age/Sex: 79 / F ADM Date: 01/29/25 Loc: LAB Attending Dr: Clifford Espinoza M.D. Ordering Physician: Clifford Espinoza M.D. Date of Service: 01/29/25 Procedure(s): MR head/brain wo/w con Accession Number(s): [id number] cc: Gisella Chamorro M.D.; Clifford Espinoza M.D. The [place] [address] Patient Name: BILLIE YEBOAH MRN: [id number] date: 1945 Sex: F Assigned Patient Location: LAB Current Patient Location: LAB Accession/Order Number: [id number] Exam Date: 01/29/2025 15:50 Report Date: 01/29/2025 [...] Knight M.D. 01/29/2025 3:58 PM Dictation Location: [place] [address] Electronically authenticated by: [id number] Y Date: 01/29/2025 15:58 Dictated By: Raudel Knight M.D. Signed By: 01/29/25 1608 DD/ 1558 TD/TT: Energy Manager: [facility] CenterRadiology Study observation (narrative)[facility] HEAD/BRAIN WO/W CONTROrdered By: Radiologist Radiology on 62-94-0612XAYGBoone Hospital Center Work Phone: TB CREATININEon 34-20-0066Uhygsdzqbj [Mass/Vol]0.73 mg/dL0.55 - 1.02 mg/dLNOFreeman Neosho HospitalGFR/1.73 sq M.predicted CKD-EPI (S/P/Bld) [Vol rate/Area]>60>=60 mL/min/1.73m 2NOM[facility] HealthcareTBH EGFR-NON AF IRANIAN>60 >=60 mL/min/1.73m 2NOMS HealthcareCLINISYNCNLakeland Regional HospitalAuditory function testson 31-02-1829Lrtag Ear: Mild sensorineural hearing loss From 500 Hz - 1K Hz. Mild to severe sensorineural hearing loss above 3K hz Left Ear: Mild to severe sensorineural hearing loss [facility]CNOVon 81-23-5847BZADXdyutq Visit ([facility]) BILLIE YEBOAH ([id number]) 1945 F Date Time Provider Department 12/20/24 4:00 PM FUNMILAYO ODELL [facility] During your visit today, we recorded the following information about you: Temperature Pulse Blood pressure 97.5 degrees 90/minute 156/84 Funmilayo Odell MD 12/20/2024 4:21 PM Signed COLORECTAL SURGERY December 20, 2024 Billie Goodther 79 year old This consult was requested by Dr. Forbes and my final recommendations will be communicated to the requesting health care provider by way of the shared medical record for internal providers or letter via the [place] Postal Service for external providers. Chief Complaint: rectal prolapse History of Present Illness: Billie Yeboah is a 79 year old female presents today for follow up evaluation of hemorrhoids and rectal prolapse. She was previously seen in office in 2023 for hemorrhoids. Crohn's disease - followed by Dr. Forbes Sigmoidoscopy 06/21/24 - Dr. Forbes Scan on 11/29/2024 1:32 PM by Laci Mancuso: [facility] - Flexible Sigmoidoscopy w Biopsy, 06/21/24 Pathology [...] ALLERGIES Allergen Reactions Ciprofloxacin Rash, Unknown Nitrofurantoin [place]* Other: See Comments, GI Upset Sulfamethoxazole-Tr* Other: [...] blood or masses. Weakened tone and squeeze Flare Maker present: Yes, Sarah Z The sensitive examination was discussed with the Patient or Patient's Authorized Electrical Intern. As applicable, any other physician, advance practice provider, medical student, or other health professional student that will be observing or involved in the sensitive examination for educational or training purposes was discussed with the Patient or Authorized Electrical Intern. The Patient or Authorized Electrical Intern has agreed to proceed with the sensitive [...] of prior notes from myself Review of jeanie (more content not included)...NormalSy[facility] Center Alanine aminotransferase [Enzymatic activity/volume] in Serum or PlasmaOrdered By: Lita Hansen on 50-85-3013OGI [Catalytic activity/Vol]Alanine aminotransferase [Enzymatic activity/volume] in Serum or PlasmaFort Hamilton HospitalAlbumin [Mass/volume] in Serum or Plasma by Bromocresol green (BCG) dye binding methoOrdered By: Lita Hansen on 53-94-0756Qybnmig BCG dye [Mass/Vol]Albumin [Mass/volume] in Serum or Plasma by Bromocresol green (BCG) dye binding metho3.5-5.7FOhio Valley HospitalAlkaline phosphatase [Enzymatic activity/volume] in Serum or PlasmaOrdered By: Lita Hansen on 97-85-1063KYU [Catalytic activity/Vol]Alkaline phosphatase [Enzymatic activity/volume] in Serum or Iypjqt75-659QdcipvzegFort Hamilton Hospital Aspartate aminotransferase [Enzymatic activity/volume] in Serum or PlasmaOrdered By: Lita Hansen on 15-56-7897LLN [Catalytic activity/Vol]Aspartate aminotransferase [Enzymatic activity/volume] in Serum or Hfaril54-32VwfetghqiFort Hamilton HospitalBasophils Auto (Bld) [#/Vol]Ordered By: Lita Hansen on 79-46-3310Upiptouin (Bld) [#/Vol]Automated basophil count0.0-0.2FOhio Valley HospitalBasophils/100 WBC Auto (Bld)Ordered By: Lita Hansen on 96-86-0499Eymqrppbc/100 WBC (Bld)Automated basophil %.Fort Hamilton HospitalBilirubin.total [Mass/volume] in Serum or PlasmaOrdered By: Lita Hansen on 29-81-2730Vhldiastg [Mass/Vol]Bilirubin.total [Mass/volume] in Serum or Plasma0.3-1.0Fort Hamilton HospitalCalcium [Mass/volume] in Serum or PlasmaOrdered By: Lita Hansen 52-69-4722Omokysn [Mass/Vol] Calcium [Mass/volume] in Serum or Plasma8.6-10.3FOhio Valley HospitalCarbon dioxide, total [Moles/volume] in Serum or PlasmaOrdered By: Lita Hansen on 84-73-6380QF5 [Moles/Vol]Carbon dioxide, total [Moles/volume] in Serum or Lbzong92.0-31.0Fort Hamilton HospitalChloride [Moles/volume] in Serum or PlasmaOrdered By: Lita Hansen on 14-64-3332Aedzcdsq [Moles/Vol] Chloride [Moles/volume] in Serum or Clihyx48-285CeznfgfzgFort Hamilton HospitalComplete Blood Count Auto Diffon 50-72-8871Xfkhnqkgp (Bld) [#/Vol]0.0 10*3/uLNormal0.0-0.2The [facility] Physician GroupComment on above:Result Comment: PERFORMED BY: [place] [address] PATHOLOGIST FEED HOUSE SUPERVISOR MAE TOBAR M.D.Performed By: #### CBC, CMP #### [place] [address] USABasophils/100 WBC (Bld)0.3 %Normal.The [facility] Physician GroupComment on above:Performed By: #### CBC, CMP #### [place] [address] USAEosinophils (Bld) [#/Vol]0.0 10*3/uLNormal0.0-0.45The [facility] Physician GroupComment on above:Performed By: #### CBC, CMP #### [place] [address] USAEosinophils/100 WBC (Bld)0.0 %Normal.The [facility] Physician GroupComment on above:Performed By: #### CBC, CMP #### [place] [address] USAErythrocyte distribution width (RBC) [Ratio]14.4 %Normal 11.9-15.3The [facility] Physician GroupComment on above:Performed By: #### CBC, CMP #### [place] [address] USAHematocrit (Bld) [Volume fraction]38.1 %Jsvbak00.0-46.4The [facility] Physician GroupComment on above:Performed By: #### CBC, CMP #### [place] [address] USAHemoglobin (Bld) [Mass/Vol]13.1 g/wVOqefej89.8-15.4The [facility] Physician GroupComment on above:Performed By: #### CBC, CMP #### [place] [address] USALymphocytes (Bld) [#/Vol]1.9 10*3/uLNormal1.00-4.8The [facility] Physician GroupComment on above:Performed By: #### CBC, CMP #### [place] [address] USALymphocytes/100 WBC (Bld)28.7 %Normal.The [facility] Physician GroupComment on above:Performed By: #### CBC, CMP #### [place] [address] USAMCH (RBC) [Entitic mass]28.9 yhMupndn37.7-34.3The [facility] Physician GroupComment on above:Performed By: #### CBC, CMP #### [place] [address] USAMCV (RBC) [Entitic vol]84.2 nLEyxlhq17-853Wpp [facility] Physician GroupComment on above:Performed By: #### CBC, CMP #### [place] [address] USAMean Corpuscular HGB Conc34.4 g/tWBstghz35.0-35.0The [facility] Physician GroupComment on above:Performed By: #### CBC, CMP #### [place] [address] USAMonocytes (Bld) [#/Vol]0.6 10*3/uLNormal0.0-0.8The [facility] Physician GroupComment on above:Performed By: #### CBC, CMP #### [place] [address] USAMonocytes/100 WBC (Bld)9.4 %Normal.The [facility] Physician GroupComment on above:Performed By: #### CBC, CMP #### [place] [address] USANeutrophils (Bld) [#/Vol]4.0 10*3/uLNormal1.8-7.7The [facility] Physician GroupComment on above:Performed By: #### CBC, CMP #### [facility] [address] [place] [address] USANeutrophils/100 WBC (Bld)61.6 %Normal.The [facility] Physician GroupComment on above:Performed By: #### CBC, CMP #### [facility] [address] [place] [address] USANRBC%0.2 /100{WBC}Normal0-0.5The [facility] Comment on above:Performed By: #### CBC, CMP #### [facility] [address] [place] [address] USAPlatelet mean volume (Bld) [Entitic vol]8.1 fLNormal 6.3-10.7The [facility] Physician GroupComment on above:Performed By: #### CBC, CMP #### [facility] [address] [place] [address] USAPlatelets (Bld) [#/Vol]306 10*3/wISlhuvj372-298Qml [facility] Physician GroupComment on above:Performed By: #### CBC, CMP #### [place] [address] USARBC (Bld) [#/Vol]4.53 10*6/uLNormal3.60-5.00The [facility] Physician GroupComment on above:Performed By: #### CBC, CMP #### [place] [address] USAWBC (Bld) [#/Vol]6.5 10*3/uLNormal3.8-11.6The [facility] Physician GroupComment on above:Performed By: #### CBC, CMP #### [place] [address] USAComprehensive Metabolic Panelon 89-33-7252Dyzuyte [Mass/Vol]4.0 g/dLNormal3.5-5.7The [facility] Physician GroupComment on above: Performed By: #### CBC, CMP #### [place] [address] USAAlbumin/Globulin [Mass ratio]1.5 {ratio}NormalThe [facility] Physician GroupComment on above:Performed By: #### CBC, CMP #### [place] [address] USAALP [Catalytic activity/Vol]57 U/JGoyavx25-795Cuk [facility] Physician GroupComment on above:Result Comment: PERFORMED BY: [place] [address] PATHOLOGIST FEED HOUSE SUPERVISOR MAE TOBAR M.D.Performed By: #### CBC, CMP #### [place] [address] USAALT [Catalytic activity/Vol]14 U/LNormal7-52The [facility] Physician GroupComment on above:Performed By: #### CBC, CMP #### [place] [address] USAAnion gap [Moles/Vol]13.2 mmol/LNormal6.0-15.0The [facility] Physician GroupComment on above:Performed By: #### CBC, CMP #### [place] [address] USAAST [Catalytic activity/Vol]15 U/JMzdwdd12-53Uis [facility] Physician GroupComment on above:Performed By: #### CBC, CMP #### [place] [address] USABilirubin [Mass/Vol]0.7 mg/dLNormal0.3-1.0The [facility] Physician GroupComment on above:Performed By: #### CBC, CMP #### [place] [address] USACalcium [Mass/Vol]8.9 mg/dLNormal8.6-10.3The [facility] Physician GroupComment on above:Performed By: #### CBC, CMP #### [place] [address] USAChloride [Moles/Vol]106 mmol/PRpznhz93-152Jqm [facility] Physician GroupComment on above:Performed By: #### CBC, CMP #### [facility] [address] [place] [address] USACO2 [Moles/Vol]27.4 mmol/FRucnff91.0-31.0The [facility] Physician GroupComment on above:Performed By: #### CBC, CMP #### [facility] [address] [place] [address] USACreatinine [Mass/Vol]0.75 mg/dLNormal0.60-1.20The [facility] Physician GroupComment on above:Performed By: #### CBC, CMP #### [place] [address] USAGFR/1.73 sq M.predicted MDRD (S/P/Bld) [Vol rate/Area] mL/min/{1.73_m2}NormalThe [facility] Physician GroupComment on above:Performed By: #### CBC, CMP #### [place] [address] USAGlobulin (S) [Mass/Vol]2.7 g/dLNormalThe [facility] Physician GroupComment on above:Performed By: #### CBC, CMP #### [place] [address] USAGlucose [Mass/Vol]89 mg/uBPridaa58-378Uyu [facility] Physician GroupComment on above:Result Comment: Random Glucose Reference Range is dependent on time and content of last meal. Glucose of more than 200 mg/dL in a nonstressed, ambulatory subject supports the diagnosis of Diabetes Mellitus. ADA recommended reference rangePerformed By: #### CBC, CMP #### [place] [address] USAPotassium [Moles/Vol]3.6 mmol/LNormal3.5-5.1The [facility] Physician GroupComment on above:Performed By: #### CBC, CMP #### [place] [address] USAProtein [Mass/Vol]6.7 g/dLNormal6.4-8.9The [facility] Physician GroupComment on above:Performed By: #### CBC, CMP #### [facility] [address] [place] [address] USASodium [Moles/Vol]143 mmol/BSrwvmv743-397Xwi [facility] Physician GroupComment on above:Performed By: #### CBC, CMP #### [facility] [address] [place] [address] USAUrea nitrogen [Mass/Vol]17 mg/dLNormal7-25The [facility] Physician GroupComment on above:Performed By: #### CBC, CMP #### [facility] [address] [place] [address] USACreatinine [Mass/volume] in Serum or PlasmaOrdered By: Lita Hansen on 29-82-4310Zavbrtfgek [Mass/Vol]Creatinine [Mass/volume] in Serum or Plasma0.60-1.20Fort Hamilton HospitalEosinophils Auto (Bld) [#/Vol]Ordered By: Lita Hansen on 70-54-0610Uakchdpiqfr (Bld) [#/Vol] Automated eosinophil count0.0-0.45[facility] Eosinophils/100 WBC Auto (Bld)Ordered By: Lita Hansen on 10-22-2024 Eosinophils/100 WBC (Bld)Automated eosinophil %.[facility] HospitalErythrocyte distribution width Auto (RBC) [Ratio]Ordered By: Lita Hansen on 92-07-6992Cktcbvkgjtt distribution width (RBC) [Ratio]Erythrocyte distribution width [Ratio] by Automated count11.9-15.3FOhio Valley HospitalGlobulin Calc (S) [Mass/Vol]Ordered By: Lita Hansen on 10-22-2024 Globulin (S) [Mass/Vol]Serum globulin measurement by calculation (mass/volume) [facility] HospitalGlucose [Mass/volume] in Serum or PlasmaOrdered By: Lita Hansen on 70-85-3252Zbmndof [Mass/Vol]Glucose [Mass/volume] in Serum or Ukrdhe44-639UqddyffplFort Hamilton HospitalComment on above:ADA recommended reference rangeRandom Glucose Reference Range is dependent on time and content of last meal. Glucose of more than 200 mg/dL in a nonstressed, ambulatory subject supports the diagnosisof Diabetes Mellitus.Hematocrit Auto (Bld) [Volume fraction]Ordered By: Lita Hansen on 75-47-1904Qtggjnevge (Bld) [Volume fraction]Hematocrit [Volume Fraction] of Blood by Automated count 34.0-46.4FOhio Valley HospitalHemoglobin [Mass/volume] in Blood Ordered By: Lita Hansen on 48-87-1026Vqusdfaxkg (Bld) [Mass/Vol]Hemoglobin [Mass/volume] in Blood11.8-15.4FOhio Valley HospitalLeukocytes [#/volume] corrected for nucleated erythrocytes in Blood by Automated coun Ordered By: Lita Hansen on 89-24-9192PUK corrected for nucl RBC Auto (Bld) [#/Vol]Leukocytes [#/volume] corrected for nucleated erythrocytes in Blood by Automated coun3.8-11.6FOhio Valley HospitalLymphocytes Auto (Bld) [#/Vol]Ordered By: Lita Hansen on 29-16-3039Atkdmsrbgbr (Bld) [#/Vol] Lymphocytes [#/volume] in Blood by Automated count1.00-4.8[facility] Hamilton HospitalLymphocytes/100 WBC Auto (Bld)Ordered By: Lita Hansen on 74-06-7484Jmsxutfcqit/100 WBC (Bld)Lymphocytes/100 leukocytes in Blood by Automated count.[facility] Hamilton HospitalMCH Auto (RBC) [Entitic mass] Ordered By: Lita Hansen on 94-04-9273MDW (RBC) [Entitic mass]MCH [Entitic mass] by Automated count24.7-34.3FOhio Valley HospitalMCHC Auto (RBC) [Mass/Vol]Ordered By: Lita Hansen on 81-71-4700CWMV (RBC) [Mass/Vol] MCHC [Mass/volume] by Automated count32.0-35.0[facility] MCV Auto (RBC) [Entitic vol]Ordered By: Lita Hansen on 79-13-1624NDA (RBC) [Entitic vol]MCV [Entitic volume] by Automated abfes57-438WlzkvpnwiFort Hamilton HospitalMonocytes Auto (Bld) [#/Vol]Ordered By: Lita Hansen on 24-55-1955Xaknvjvbq (Bld) [#/Vol]Automated blood monocyte count0.0-0.8Fort [facility] HospitalMonocytes/100 WBC Auto (Bld)Ordered By: Lita Hansen on 48-50-8049Nnphjlgqq/100 WBC (Bld)Automated monocyte %.[facility] HospitalNeutrophils Auto (Bld) [#/Vol]Ordered By: Lita Hansen on 15-66-7652Boyhyqgmgbv (Bld) [#/Vol]Neutrophils [#/volume] in Blood by Automated count1.8-7.7FOhio Valley HospitalNeutrophils/100 WBC Auto (Bld) Ordered By: Lita Hansen on 69-87-3522Matvpmjfyvh/100 WBC (Bld)Automated neutrophil %.[facility] HospitalNo Panel InformationOrdered By: Lita Hansen on 66-74-6630Hirdvidgg GFR (CKD-EPI)> 60.0 mL/MinFort Hamilton HospitalPharmacy Creatinine Clearance (ChemN/AFOhio Valley HospitalNucleated erythrocytes [Presence] in Blood by Automated count Ordered By: Lita Hansen on 19-66-3625Vplhuhmbg RBC Auto Ql (Bld)Nucleated erythrocytes [Presence] in Blood by Automated count0-0.5FOhio Valley HospitalPlatelet mean volume Auto (Bld) [Entitic vol]Ordered By: Lita Hansen on 80-22-2134Gpfwuvwz mean volume (Bld) [Entitic vol]Platelet mean volume [Entitic volume] in Blood by Automated count6.3-10.7FOhio Valley HospitalPlatelets Auto (Bld) [#/Vol]Ordered By: Lita Hansen on 10-22-2024 Platelets (Bld) [#/Vol]Platelets [#/volume] in Blood by Automated uagcw195-713 [facility] HospitalPotassium [Moles/volume] in Serum or Plasma Ordered By: Lita Hansen on 23-17-5720Rnwexfwtd [Moles/Vol]Potassium [Moles/volume] in Serum or Plasma3.5-5.1FOhio Valley HospitalProtein [Mass/volume] in Serum or PlasmaOrdered By: Lita Hansen on 32-85-2084Cgypwko [Mass/Vol]Protein [Mass/volume] in Serum or Plasma6.4-8.9Fort Hamilton HospitalRBC Auto (Bld) [#/Vol]Ordered By: Lita Hansen on 23-65-0907IBK (Bld) [#/Vol]Erythrocytes [#/volume] in Blood by Automated count3.60-5.00 Summa Healtherum or plasma albumin/globulin mass ratio Ordered By: Lita Hansen on 56-24-5275Jyzmxyp/Globulin [Mass ratio]Serum or plasma albumin/globulin mass ratioSumma Healtherum or plasma anion gap determinationOrdered By: Lita Hansen on 28-24-7735Xyjeg gap [Moles/Vol]Serum or plasma anion gap determination6.0-15.0Summa Healthodium [Moles/volume] in Serum or PlasmaOrdered By: Lita Hansen on 53-87-6723Nigfzl [Moles/Vol]Sodium [Moles/volume] in Serum or Kzgplx824-500 [facility] HospitalUrea nitrogen [Mass/volume] in Serum or Plasma Ordered By: Lita Hansen on 70-93-8884Hygq nitrogen [Mass/Vol]Urea nitrogen [Mass/volume] in Serum or Plasma7-25Fort Hamilton HospitalWBC Auto (Bld) [#/Vol]Ordered By: Lita Hansen on 16-04-8747ZFK (Bld) [#/Vol]Leukocytes [#/volume] in Blood by Automated count3.8-11.6FOhio Valley Hospital Carlos 06-21-2024L Specimen: [id number] Received: 06/21/24-1022 Status: NILSA Taveras Num: [id number] Spec Type: Surgical Subm Dr: Manoj Forbes MD Tissues: A Gross Only (DESCENDING COLON BX) B Gross Only (SIGMOID COLON BX) C Gross Only (RECTAL BX) Procedures: Level 1 Gross/3 Comments: PER DR. FORBES SPECIMEN IS TO BE SENT DIRECTLY TO [facility] Age/ Patient Sex Location Account Attending Physician Billie Yeboah 78/F [id number] Manoj Forbes MD SPEC NUM: [id number] RECD: 06/21/24 STATUS: [place]STINA NUM: [id number] OMID: 06/21/[address] [facility] [address]: Manoj Forbes MD ENTERED: 06/21/[address] [facility] [address]: CHRISTOPHER TYPE: Surgical DEPT: S ENTERED BY: [id number] RECV BY: [id number] ORDERED: Level 1 Gross/3 COMMENTS: PER DR. FORBES SPECIMEN IS TO BE SENT DIRECTLY TO [facility] ORDERED: Level 1 Gross/3 COMMENTS: PER DR. FORBES SPECIMEN IS TO BE SENT DIRECTLY TO [facility] Supplemental Report Addendum 1 Entered: 08/02/24 Supplemental for findings of consultation report from [facility] A, -Colonic mucosa with no pathologic diagnostic abnormality; negative for granulomas or dysplasia B, -Chronic minimally active colitis; negative for granulomas or dysplasia C, -Chronic mildly active colitis; negative for granuloma or dysplasia Specimen: [id number] Received: 06/21/24 Status: NLISA Portilloalyssia Num: [id number] Spec Type: Surgical Subm Dr: Manoj Forbes MD Tissues: A Gross Only (DESCENDING COLON BX) B Gross Only (SIGMOID COLON BX) C Gross Only (RECTAL BX) Procedures: Level 1 Gross/3 Comments: PER DR. FORBES SPECIMEN IS TO BE SENT DIRECTLY TO [facility] Patient: Billie Yeboah [id number] (Continued) Specimen: [id number] Received: 06/21/24 (Continued) Supplemental Report (Continued) Signed (signature on file) Maggie Pearce MD 08/02/241948 Specimen: [id number] Received: 06/21/24 Status: NILSA Taveras Num: [id number] Spec Type: Surgical Subm Dr: Manoj Forbes MD Tissues: A Gross Only (DESCENDING COLON BX) B Gross Only (SIGMOID COLON BX) C Gross Only (RECTAL BX) Procedures: Level 1 Gross/3 Comments: PER DR. FORBES SPECIMEN IS TO BE SENT DIRECTLY TO [facility] Patient: Billie Yeboah [id number] (Continued) Specimen: [id number] Received: 06/21/24 (Continued) Supplemental Report (Continued) Addendum Signed (signature on file)__Conrado Pearce MD 08/02/241951 Pathological Diagnosis A, descending [...] tissue fragments. The specimen is sent to [facility] for analysis. GROSS ONLY-JG Part B is received in formalin labeled with the patients name, date of , and sigmoid colon biopsy are 3 davila-garcia, focally erythematous, friable, 0.2, 0.3 and 0.4 cm tissue bits. The specimen is sent to [facility] for analysis. GROSS ONLY-JG Part C is received in formalin labeled with the patients name, date of , and rectal biopsy are 3 davila-garcia, focally erythematous, friable, 0.2, 0.3 and 0.3 cm tissue bits. GROSS ONLY-JG Specimen: [id number] Received: 06/21/24 Status: NILSA Taveras Num: [id number] Spec Type: Surgical (more content not included)...[facility] PATHOLOGYon 71-43-0616CEVA REPORTNormalCSelect Medical [facility] Comment on above:Order Comment: Specimen Type: TISSUE SPECIMEN Ordering Facility: [facility] Address: [facility] [place], [place] [address]Dkdrkl Comment: Surgical Pathology Report Case: [id number] Authorizing Provider: Manoj Forbes MD Collected: 06/21/2024 09:28 AM Ordering Location: [facility] Received: 06/24/2024 12:23 PM [facility] Pathologist: Lizeth Chamberlain MD Specimens: A) - Colon, Biopsy, Descending colon bx r/o Chrons and ulcerative colitis [id number] A B) - Colon, Biopsy, Sigmoid colon bx r/o Chron's, ulcerative colitis, SCAD [id number] B C) - Rectum, Biopsy, Rectal bx r/o Chron's and ulcerative colitis [id number] C Performed By: #### S #### [facility] CLIA [id number] [address] [place] [address] [place] [facility] CLIA [id number] [address] [place] [address] [place] OF AMERICACLINICAL HISTORYColitis NormalOhioHealth Mansfield Hospital on above:Order Comment: Specimen Type: TISSUE SPECIMEN Ordering Facility: [facility] Address: [place], [place] [address]Hcojaowkw By: #### S #### [facility] CLIA [id number] [place] [address] [place] [facility] CLIA [id number] [address] [place] [address] [place] OF AMERICAFINAL DIAGNOSISNormal [facility] on above:Order Comment: Specimen Type: TISSUE SPECIMEN Ordering Facility: [facility] Address: [place], [place] [address]Mizrgr Comment: A. Colon, ascending, biopsy: - Colonic mucosa with no pathologic diagnostic abnormality; negative for granulomas or dysplasia. B. Colon, sigmoid, biopsy: - Chronic minimally active colitis; negative for granulomas or dysplasia. C. Rectum, biopsy: - Chronic mildly active colitis; negative for granulomas or dysplasia. Performed By: #### S #### [facility] CLIA [id number] [place] [address] LAB CLIA [id number] [address] [place], [place] [address]FINOH PERFORMING LABNormal [facility] on above:Order Comment: Specimen Type: TISSUE SPECIMEN Ordering Facility: [facility] Address: [address] [place] [id number] Comment: Diagnostic interpretation performed at [facility], [address] [place] [address] CLIA# [id number] Delicatessen Clerk: Lizeth Chamberlain M.D.Performed By: #### S #### [facility] CLIA [id number] [place] [address] LAB CLIA [id number] [address] [place], [place] [address]GROSS DESCRIPTIONOhioHealth Arthur [facility] on above:Order Comment: Specimen Type: TISSUE SPECIMEN Ordering Facility: [facility] Address: [facility] [place], [place] [address]Lmsqhi Comment: A. Colon, Biopsy Received in formalin are [...] 2024 12:54 PM Gross examination performed at [facility], [address] [place], [place] [address]Performed By: #### S #### [facility] CLIA [id number] [place] [address] STATES OF [facility] CLIA [id number] [address] [facility] [address] [place] STATES OF [facility]ARE SYSTEMAutomated basophil %Ordered By: Manoj Forbes on 05-58-3522Kxenepbtm/100 WBC (Bld)0.6 %Normal.[facility] HospitalComment on above:Performed By: #### CRP, CBC, ESR #### [facility] [address] [place] [address] USAAutomated basophil countOrdered By: Manoj Forbes on 32-72-4776Atbuidzww (Bld) [#/Vol]0.0 10*3/uLNormal0.0-0.2FOhio Valley HospitalComment on above:Performed By: #### CRP, CBC, ESR #### [place] [address] USAAutomated blood monocyte countOrdered By: Manoj Forbes on 62-29-1246Vlucvhoav (Bld) [#/Vol]0.5 10*3/uLNormal0.0-0.8Fort Hamilton HospitalComment on above:Performed By: #### CRP, CBC, ESR #### [place] [address] USAAutomated eosinophil %Ordered By: Manoj Forbes on 66-36-8575Angwgwuopof/100 WBC (Bld)5.1 %Normal.[facility] Comment on above:Performed By: #### CRP, CBC, ESR #### [place] [address] USAAutomated eosinophil countOrdered By: Manoj Forbes on 99-66-2254Xnlypvkyytw (Bld) [#/Vol]0.3 10*3/uLNormal0.0-0.45Fort Hamilton HospitalComment on above:Performed By: #### CRP, CBC, ESR #### [place] [address] USAAutomated monocyte %Ordered By: Manoj Forbes on 71-96-8820Ciwugvsxs/100 WBC (Bld)9.4 %Normal.[facility] Comment on above:Performed By: #### CRP, CBC, ESR #### [place] [address] USAAutomated neutrophil %Ordered By: Manoj Forbes on 57-19-9873Rxdhaabpiju/100 WBC (Bld)68.0 %Normal.Fort Hamilton HospitalComment on above:Performed By: #### CRP, CBC, ESR #### [place] [id number] USAC reactive protein [Mass/volume] in Serum or PlasmaOrdered By: Manoj Forbes on 98-66-5746VFD [Mass/Vol]< 0.5 mg/dL0.0-0.5FOhio Valley HospitalC-Reactive Proteinon 92-71-5247FMR [Mass/Vol]mg/LNormal 0.0-0.5[facility] Physician GroupComment on above:Result Comment: PERFORMED BY: [place] [address] PATHOLOGIST FEED HOUSE SUPERVISOR SE CHEATHAM M.D.Performed By: #### CRP, CBC, ESR #### [place] [id number] USACalprotectin, Fecalon 55-63-2462Ycitaualgdnw, Bdxox766Mfuh 0-120[facility] Physician GroupComment on above:Result Comment: Concentration Interpretation Follow-Up < 5 - 50 ug/g Normal None >50 -120 ug/g Borderline Re-evaluate in 4-6 weeks >120 ug/g Abnormal Repeat as clinically indicated Performed at: BN - [facility] [address] [id number] Cell [employer] Machine: Nadeen Gant MD, Phone: [phone] PERFORMED BY: [address] [address] PATHOLOGIST FEED HOUSE SUPERVISOR SE CHEATHAM M.D.Performed By: #### CALPROTECT #### [facility] , #### IBD DIAG #### [place] [id number] USAComplete Blood Count Auto Diffon 30-58-9677Zfch Corpuscular HGB Conc34.3 g/sIDgblcj92.0-35.0[facility] Physician GroupComment on above:Performed By: #### CRP, CBC, ESR #### [place] [address] USANRBC%0.1 /100{WBC}Normal0-0.5[facility] Comment on above:Performed By: #### CRP, CBC, ESR #### [place] [address] USAErythrocyte Sedimentation Rateon 72-19-0922LIQ (Bld) [Velocity]20 mm/hNormal0-29[facility] Physician GroupComment on above:Result Comment: PERFORMED BY: [place] [address] PATHOLOGIST FEED HOUSE SUPERVISOR SE CHEATHAM M.D.Performed By: #### CRP, CBC, ESR #### [place] [address] USAErythrocyte distribution width [Ratio] by Automated count Ordered By: Manoj Forbes on 29-24-9653Bphrwdvrjut distribution width (RBC) [Ratio]13.1 %Dennqu76.9-15.3FOhio Valley HospitalComment on above: Performed By: #### CRP, CBC, ESR #### [place] [address] USAErythrocyte sedimentation rate by Photometric method Ordered By: Manoj Forbes on 28-89-8325WYE Photometric method (Bld) [Velocity]20 mm/hr0-29Fort Hamilton HospitalErythrocytes [#/volume] in Blood by Automated countOrdered By: Manoj Forbes on 46-35-4993KHT (Bld) [#/Vol]4.10 10*6/uLNormal3.60-5.00Fort Hamilton HospitalComment on above: Performed By: #### CRP, CBC, ESR #### [place] [address] USAHematocrit [Volume Fraction] of Blood by Automated count Ordered By: Manoj Forbes on 61-71-8464Bwhmcagqkm (Bld) [Volume fraction]36.4 % Yxvfvf68.0-46.4FOhio Valley HospitalComment on above:Performed By: #### CRP, CBC, ESR #### [place] [address] USAHemoglobin [Mass/volume] in BloodOrdered By: Manoj Forbes on 55-15-9553Xeybicwvno (Bld) [Mass/Vol]12.5 g/oXTddeyn93.8-15.4FOhio Valley HospitalComment on above:Performed By: #### CRP, CBC, ESR #### [place] [address] USAIBD [employer] [id number] CommentNoCritical access hospital Physician GroupComment on above:Result Comment: See report. Scanned copy available in EMR. PERFORMED BY: [place] [address] PATHOLOGIST FEED HOUSE SUPERVISOR SE CHEATHAM M.D.Performed By: #### CALPROTECT #### [facility] , #### IBD DIAG #### [place] [address] USALeukocytes [#/volume] corrected for nucleated erythrocytes in Blood by Automated counOrdered By: Manoj Forbes on 03-22-5562XPG corrected for nucl RBC Auto (Bld) [#/Vol]5.7 10*3/uL3.8-11.6FOhio Valley HospitalLeukocytes [#/volume] in Blood by Automated countOrdered By: Manoj Forbes on 28-30-8286AZU (Bld) [#/Vol]5.7 10*3/uLNormal3.8-11.6FOhio Valley HospitalComment on above:Performed By: #### CRP, CBC, ESR #### [place] [address] USALymphocytes [#/volume] in Blood by Automated countOrdered By: Manoj Forbes on 20-21-9673Yapezpjesmq (Bld) [#/Vol]1.0 10*3/uLNormal 1.00-4.8Fort Hamilton HospitalComment on above:Performed By: #### CRP, CBC, ESR #### [facility] [address] [place] [address] USALymphocytes/100 leukocytes in Blood by Automated count Ordered By: Manoj Forbes on 51-08-1443Sowuwirtxat/100 WBC (Bld)16.9 %Normal. Fort Hamilton HospitalComment on above:Performed By: #### CRP, CBC, ESR #### [facility] [address] [Entitic mass] by Automated countOrdered By: Manoj Forbes on 49-21-8187TQG (RBC) [Entitic mass]30.4 omTjqynd15.7-34.3FOhio Valley HospitalComment on above:Performed By: #### CRP, CBC, ESR #### [facility] [address] Auto (RBC) [Mass/Vol]Ordered By: Manoj Forbes on 71-88-6414TAJI (RBC) [Mass/Vol]34.3 g/dL32.0-35.0Fort Hamilton HospitalMCV [Entitic volume] by Automated countOrdered By: Manoj Forbes on 49-35-5716BPH (RBC) [Entitic vol]88.6 wOIiomox31-296ZikqbzeuhFort Hamilton HospitalComment on above:Performed By: #### CRP, CBC, ESR #### [facility] [address] [place] [address] USANeutrophils [#/volume] in Blood by Automated countOrdered By: Manoj Forbes on 08-14-4807Vhfcxgdeqyr (Bld) [#/Vol]3.9 10*3/uLNormal1.8-7.7 [facility] HospitalComment on above:Performed By: #### CRP, CBC, ESR #### [facility] [address] [place] [address] USANucleated erythrocytes [Presence] in Blood by Automated countOrdered By: Manoj Forbes on 03-91-3800Sbxrenzkj RBC Auto Ql (Bld)0.1 /100{WBC}0-0.5FOhio Valley HospitalPlatelet mean volume [Entitic volume] in Blood by Automated countOrdered By: Manoj Forbes on 04-01-2024 Platelet mean volume (Bld) [Entitic vol]7.5 fLNormal6.3-10.7FOhio Valley HospitalComment on above:Performed By: #### CRP, CBC, ESR #### [facility] [address] [place] [id number] USAPlatelets [#/volume] in Blood by Automated countOrdered By: Manoj Forbes on 75-34-5575Jawleycnf (Bld) [#/Vol]279 10*3/xPDqahmh924-876 [facility] HospitalComment on above:Performed By: #### CRP, CBC, ESR #### [facility] [address] [place] [address] USAANES POSTPROC EVALon 12-38-1720QUBU POSTPROC EVALHNO ID: [id number] Author: MONO WHALEY MD Service: Anesthesiology Author [...] March 19, 2024 TIME: 11:33 AM CSN: [id number] [facility] PRE-OPon 05-11-0204NXOC PRE-OPHNO ID: [id number] Author: MONO WHALEY MD Service: Anesthesiology Author [...] SpO2 96 % 03/19/24 0710 No current facility-administered medications on file as of 03/19/2024. Outpatient [...] March 19, 2024 TIME: 7:22 AM CSN: [id number] HospitalColonoscopyon 03-19-2024 [facility] Gastrointestinal [facility] Patient Name: Billie Yeboah Procedure Date: 03/19/2024 7:20 AM Date of : 1945 Admit Type: Outpatient Age: 78 Room: [place] [address] Gender: Female Note Status: Finalized Attending MD: Funmilayo Odell MD, [id number] Procedure: Colonoscopy Indications: Rectal bleeding Providers: Funmilayo [...] the patient. Procedure Code(s): --- Professional --- 45857, Colonoscopy, flexible; with biopsy, single or multiple CPT copyright 2020 [employer]. All rights reserved. The codes documented in this report are preliminary and upon him coder review may be revised to meet [...] Estimated Blood Loss: Estimated blood loss was minimal.[facility] NOon 03-19-2024 OPERATIVE NOHNO ID: [id number] Author: FUNMILAYO ODELL MD Service: Colorectal Author Type: Physician Type: Operative Report Filed: 03/19/2024 08:51 Note Text: COLON AND RECTAL SURGERY OPERATIVE REPORT PATIENT NAME: Billie Yeboah ADMISSION DATE: 03/19/2024 LOG ID: [id number] SURGERY/PROCEDURE DATE: 03/19/2024 INCISION/PROCEDURE START TIME: 7:54 AM INCISION CLOSE/PROCEDURE END TIME: 8:47 AM AGE: [age] year old SEX: female SURGEON(S)/PROCEDURALIST(S) AND HYDRAULIC BOOM OPERATOR(S): Surgeons and Role: * Funmilayo Odell MD [...] COMPLICATIONS: None INTRAOPERATIVE FLUIDS: See anesthesia record. SPONGE/INSTRUMENT/NEEDLE COUNTS: Correct x2. PRESENCE STATEMENT: I was present for the entire procedure as I have dictated above. Funmilayo Odell M.D. Department of Surgery Division of Colon and Rectal SurgeryNicholas County Hospital panel Auto (Bld)on 05-91-1053Rkosfwjyivx distribution width (RBC) [Ratio]12.3 %11.5 - 15.0 % [facility] HospitalHematocrit (Bld) [Volume fraction]42.4 %36.0 - 46.0 %[facility] HospitalHemoglobin (Bld) [Mass/Vol]13.6 g/dL11.5 - 15.5 g/dLMemorial Health System [facility] Hospital Interpretation and review of laboratory resultsNormalCMagruder Hospital (RBC) [Entitic mass]29.6 pg26.0 - 34.0 pgCleveland ClinicMCHC (RBC) [Mass/Vol]32.1 g/dL30.5 - 36.0 g/dLMadison HealthV (RBC) [Entitic vol]92.4 fL80.0 - 100.0 fLCleveland ClinicNucleated RBC (Bld) [#/Vol]NINFCleveland ClinicPlatelet mean volume (Bld) [Entitic vol]9.6 fL9.0 - 12.7 fLClevelunc health lenoir ClinicPlatelets (Bld) [#/Vol]352 10*3/uLMemorial Health System Selby General HospitalRBC (Bld) [#/Vol]4.59 10*6/uL3.90 - 5.20 m/uL [facility] HospitalWBC (Bld) [#/Vol]6.15 10*3/uLOhioHealth Shelby Hospital Erythrocyte distribution width (RBC) [Ratio]12.3 %Suawax91.5-15.0Av Hospital Comment on above:Order Comment: Specimen Type: BLOOD SPECIMEN Ordering Facility: [facility] Address: [address] [place], [place] [address]Performed By: #### 73624-5 #### [facility] [place] [id number] [address] [place] [address] [facility] MEDICAL CENTERHematocrit (Bld) [Volume fraction]42.4 % Pqsqra66.0-46.0[facility] Valley HospitalComment on above:Order Comment: Specimen Type: BLOOD SPECIMEN Ordering Facility: [facility] Address: [address] [place], [place] [address]Performed By: #### 51198-4 #### [facility] CLIA [id number] [address] [place] [address] [facility]ARE SYSTEMHemoglobin (Bld) [Mass/Vol]13.6 g/dL Apjojy87.5-15.5Avo HospitalComment on above:Order Comment: Specimen Type: BLOOD SPECIMEN Ordering Facility: [facility] Address: [address] [place], [place] [address]Performed By: #### 52473-4 #### [facility] CLIA [id number] [address] [place] [address] [facility] (RBC) [Entitic mass]29.6 pgNormal 26.0-34.0Av HospitalComment on above:Order Comment: Specimen Type: BLOOD SPECIMEN Ordering Facility: [facility] Address: [address] [place], [place] [address]Performed By: #### 98403-0 #### [facility] CLIA [id number] [address] [place] [address] [facility] (RBC) [Mass/Vol]32.1 g/dLNormal 30.5-36.0Av HospitalComment on above:Order Comment: Specimen Type: BLOOD SPECIMEN Ordering Facility: [facility] Address: [address] [place], [place] [address]Performed By: #### 01444-7 #### [facility] IA [id number] [address] [place] [address] [facility] (RBC) [Entitic vol]92.4 fLNormal 80.0-100.0Av HospitalComment on above:Order Comment: Specimen Type: BLOOD SPECIMEN Ordering Facility: [facility] Address: [address] [place], [place] [address]Performed By: #### 17712-6 #### [facility] IA [id number] [address] [place] [address] [facility] RBC (Bld) [#/Vol]10*3/uLNormal <0.01Av HospitalComment on above:Order Comment: Specimen Type: BLOOD SPECIMEN Ordering Facility: [facility] Address: [address] [place], [place] [address]Performed By: #### 82762-9 #### [facility] [place] [id number] [address] [place] [address] [facility] MEDICAL CENTERPlatelet mean volume (Bld) [Entitic vol] 9.6 fLNormal9.0-12.7Avon HospitalComment on above:Order Comment: Specimen Type: BLOOD SPECIMEN Ordering Facility: [facility] Address: [address] [place], [place] [address]Performed By: #### 93558-3 #### [facility] IA [id number] [address] [place] [address] [facility] MEDICAL CENTERPlatelets (Bld) [#/Vol]352 10*3/uLNormal 150-400Av HospitalComment on above:Order Comment: Specimen Type: BLOOD SPECIMEN Ordering Facility: [facility] Address: [address] [place], [place] [address]Performed By: #### 63483-7 #### [facility] IA [id number] [address] [place] [address] [facility] MEDICAL CENTERRB (Bld) [#/Vol]4.59 10*6/uLNormal 3.90-5.20Av HospitalComment on above:Order Comment: Specimen Type: BLOOD SPECIMEN Ordering Facility: [facility] Address: [address] [place], [place] [address]Performed By: #### 35780-4 #### [facility] IA [id number] [address] [place] [address] [facility] MEDICAL CENTERWBC (d) [#/Vol]6.15 10*3/uLNormal 3.70-11.00Av HospitalComment on above:Order Comment: Specimen Type: BLOOD SPECIMEN Ordering Facility: [facility] Address: [address] [place], [place] [address]Performed By: #### 62818-3 #### [facility] IA [id number] [address] [place] [address] UNITED STATES OF AMERICAComprehensive metabolic 2000 panelon 30-27-6579Dunkzjh [Mass/Vol]4.1 g/dL3.9 - 4.9 g/dLCleveland ClinicALP [Catalytic activity/Vol]77 U/L34 - 123 U/LCleveland ClinicALT [Catalytic activity/Vol]14 U/L7 - 38 U/LCleveland ClinicAnion gap [Moles/Vol]12 mmol/L8 - 15 mmol/L Ram ClinicAST [Catalytic activity/Vol]18 U/L13 - 35 U/LCleveland Clinic Bilirubin [Mass/Vol]0.5 mg/dL0.2 - 1.3 mg/dLBroxton ClinicCalcium [Mass/Vol] 9.4 mg/dL8.5 - 10.2 mg/dLClemagruder hospital ClinicChloride [Moles/Vol]102 mmol/L98 - 107 mmol/LCleveland ClinicCO2 [Moles/Vol]27 mmol/L22 - 30 mmol/LCleveland Clinic Creatinine [Mass/Vol]0.81 mg/dL0.58 - 0.96 mg/dLBroxton ClinicGFR/1.73 sq M.predicted among non-blacks MDRD (S/P/Bld) [Vol rate/Area]74 mL/min/{1.73_m2}- PINFClevelOhioHealth Doctors HospitalComment on above:Estimated Glomerular Filtration Rate (eGFR) is calculated using the 2020 CKD-EPI creatinine equation. This equation utilizes serum creatinine, sex, and age as parameters. The creatinine assay has traceable calibration to isotope dilution-mass spectrometry. Refer to KDIGO guidelines for clinical interpretation. In patients with unstable renal function, e.g. those with acute kidney injury, the eGFRmay not accurately reflect actual GFR.Glucose [Mass/Vol]107 mg/vCPmdv31 - 99 mg/dLMemorial Health System Selby General HospitalComment on above:The [place] Diabetes Association (ADA) provides guidance for cutoff [...] Standards of Medical Care in Diabetes 2016, [place] [employer]. Diabetes Care. 2016.39(Suppl 1). Interpretation and review of laboratory resultsAbnormalCleveland ClinicPotassium [Moles/Vol]4.4 mmol/L3.7 - 5.1 mmol/LCleveland ClinicProtein [Mass/Vol]7.5 g/dL 6.3 - 8.0 g/dLClemagruder hospital ClinicSodium [Moles/Vol]141 mmol/L136 - 144 mmol/L [facility] HospitalUrea nitrogen [Mass/Vol]11 mg/dL7 - 21 mg/dLSycamore Medical Center ClinicAlbumin [Mass/Vol]4.1 g/dLNormal3.9-4.9Avon HospitalComment on above:Order Comment: Specimen Type: BLOOD SPECIMEN Ordering Facility: [facility] Address: [address] [place], [place] [address]Performed By: #### 3016-3, 28075-2 #### [facility] CLIA [id number] [address] [place] [address] [place] OF AMERICAALP [Catalytic activity/Vol]77 U/LNormal 34-123Av HospitalComment on above:Order Comment: Specimen Type: BLOOD SPECIMEN Ordering Facility: [facility] Address: [address] [place], [place] [address]Performed By: #### 3016-3, 33666-8 #### [facility] IA [id number] [address] [place] [address] [place] OF AMERICAALT [Catalytic activity/Vol]14 U/LNormal 7-38Av HospitalComment on above:Order Comment: Specimen Type: BLOOD SPECIMEN Ordering Facility: [facility] Address: [address] [place], [place] [address]Performed By: #### 3016-3, 21063-4 #### [facility] CLIA [id number] [address] [place] [address] [place] AMERICAAnion gap [Moles/Vol]12 mmol/LNormal8-15 Norris HospitalComment on above:Order Comment: Specimen Type: BLOOD SPECIMEN Ordering Facility: [facility] Address: [address] [place], [place] [address]Performed By: #### 3016-3, 48075-6 #### [facility] CLIA [id number] [address] [place] [address] [place] OF AMERICAAST [Catalytic activity/Vol]18 U/LNormal 13-35Av HospitalComment on above:Order Comment: Specimen Type: BLOOD SPECIMEN Ordering Facility: [facility] Address: [address] [place] [address]Djxvolhbo By: #### 3016-3, 66962-3 #### [facility] IA [id number] [address] [place] [address] [place] OF AMERICABilirubin [Mass/Vol]0.5 mg/dLNormal 0.2-1.3Avon HospitalComment on above:Order Comment: Specimen Type: BLOOD SPECIMEN Ordering Facility: [facility] Address: [address] [place] [address]Zwavsssin By: #### 3016-3, 90691-1 #### [facility] CLIA [id number] [address] [place] [address] [place] OF AMERICACalcium [Mass/Vol]9.4 mg/dLNormal8.5-10.2 Norris HospitalComment on above:Order Comment: Specimen Type: BLOOD SPECIMEN Ordering Facility: [facility] Address: [address] [place], [place] [address]Performed By: #### 3016-3, 78451-3 #### [facility] CLIA [id number] [address] [place] [address] [place] AMERICAChloride [Moles/Vol]102 mmol/LNormal 98-107Av HospitalComment on above:Order Comment: Specimen Type: BLOOD SPECIMEN Ordering Facility: [facility] Address: [address] [place] [address]Qwyixnpkv By: #### 3016-3, 03231-1 #### [facility] CLIA [id number] [address] [place] [address] [place] OF AMERICACO2 [Moles/Vol]27 mmol/XOipcwf63-93Hjgt HospitalComment on above:Order Comment: Specimen Type: BLOOD SPECIMEN Ordering Facility: [facility] Address: [address] [place] [address]Dvsrmgcox By: #### 3016-3, 05433-3 #### [facility] CLIA [id number] [address] [place] [address] [place] OF AMERICACreatinine [Mass/Vol]0.81 mg/dLNormal 0.58-0.96Norris HospitalComment on above:Order Comment: Specimen Type: BLOOD SPECIMEN Ordering Facility: [facility] Address: [address] [place], [place] [address]Performed By: #### 3016-3, 81340-9 #### [facility] CLIA [id number] [address] [place] [address] [place] AMERICACreatinine and Glomerular filtration rate.predicted panel (S/P/Bld)74 mL/min/1.73m???Normal>=60AvSelect Specialty Hospital - BloomingtonComment on above:Order Comment: Specimen Type: BLOOD SPECIMEN Ordering Facility: [facility] Address: [address] [place], [place] [address]Result Comment: Estimated Glomerular Filtration Rate (eGFR) is calculated using the 2020 CKD-EPI cre atinine equation. This equation utilizes serum creatinine, sex, and age as parameters. The creatinine assay has traceable calibration to isotope dilution- mass spectrometry. Refer to KDIGO guidelines for clinical interpretation. In patients with unstable renal function, e.g. those with acute kidney injury, the eGFR may not accurately reflect actual GFR.Performed By: #### 3016-3, 82635-3 #### [facility] CLIA [id number] [address] [place] [address] [place] AMERICAGlucose [Mass/Vol]107 mg/dJVvqm47-15Eaet HospitalComment on above:Order Comment: Specimen Type: BLOOD SPECIMEN Ordering Facility: [facility] Address: [address] [place], [place] [address]Unafxf Comment: The [place] Diabetes Association (ADA) provides guidance for cutoff [...] Standards of Medical Care in Diabetes 2016, [place] [employer]. Diabetes Care. 2016.39(Suppl 1).Performed By: #### 3016-3, 57918-6 #### [facility] CLIA [id number] [address] [place] [address] [place] AMERICAPotassium [Moles/Vol]4.4 mmol/LNormal 3.7-5.1Avo HospitalComment on above:Order Comment: Specimen Type: BLOOD SPECIMEN Ordering Facility: [facility] Address: [address] [place], [place] [address]Performed By: #### 3016-3, 60485-2 #### [facility] CLIA [id number] [address] [place] [address] [place] AMERICAProtein [Mass/Vol]7.5 g/dLNormal6.3-8.0 Norris HospitalComment on above:Order Comment: Specimen Type: BLOOD SPECIMEN Ordering Facility: [facility] Address: [address] [place], [place] [address]Performed By: #### 3016-3, 46475-3 #### [facility] CLIA [id number] [address] [place] [address] [place] AMERICASodium [Moles/Vol]141 mmol/FKyrivv535-496 Norris HospitalComment on above:Order Comment: Specimen Type: BLOOD SPECIMEN Ordering Facility: [facility] Address: [address] [place] [id number] By: #### 3016-3, 14219-9 #### [facility] CLIA [id number] [address] [place] [address] [place] AMERICAUrea nitrogen [Mass/Vol]11 mg/dLNormal 7-21Norris HospitalComment on above:Order Comment: Specimen Type: BLOOD SPECIMEN Ordering Facility: [facility] Address: [address] [place] [id number] By: #### 3016-3, 87356-2 #### [facility] CLIA [id number] [address] [address] [place] [address] [place] OF AMERICAECG COMPLETEon 74-86-6015ISC COMPLETE Ventricular Rate : 113 BPM Atrial Rate : 113 BPM P-R Interval : 166 ms QRS Duration : 86 ms Q-T Interval : 318 ms QTC Calculation(Bazett) : 436 ms Calculated P Glover : 66 degrees Calculated R Glover : -50 degrees Calculated T Glover : 69 degrees Sinus tachycardia Right atrial enlargement Left anterior fascicular block Possible Anterolateral infarct , age undetermined Abnormal ECG No previous ECGs available Confirmed by DANIEL LAZO MD ([id number]) on 03/06/2024 10:31:42 AM NAME : BILLIE YEBOAH PID : [id number] : 1945 Gender : Female Race : ORD : [id number] Procedure Date : Feb 28 2024 13:49:41 [...] By : FUNMILAYO ODELL Acquired by : [facility] T4 [Mass/Vol]on 02-28-2024 Interpretation and review of laboratory resultsAbnormalCKettering Health Washington TownshipHISTORY PHYSICALon 53-51-9741UGBHPBA PHYSICALHNO ID: [id number] Author: ZAIDA HERNANDEZ PA-C Service: ? Author Type: Physician Department [employer] Type: H&P Filed: 03/10/2024 13:47 Note Text: [...] has never had a prior EKG at [facility] before, but has at either [facility] or [facility]. 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 On daily Etodolac and has Tramadol [...] 35 kg/m2 Non-male patient STOP-Bang Score: 1 [id number] Score: [id number] Score: 0 ANESTHESIA FINDINGS: Intubation History: No [...] mg tablet ECG COMPLETE Faxed release to [employer] (more content not included)...NormalAvon HospitalT4 FREE/FREE THYROXINEon [id number] T4 [Mass/Vol]1.9 ng/dLHigh0.9 - 1.7 ng/dLJose [place] [address] Free SerPl-mCncon 11-68-3845Qoyy T4 [Mass/Vol]1.9 ng/dLHigh0.9-1.7Avon HospitalComment on above:Order Comment: Specimen Type: BLOOD SPECIMEN Ordering Facility: [facility] Address: [address] [place], [place] [address]Performed By: #### 3024-7 #### [facility] CLIA [id number] [address] [place] [address] [id number] [place] [address] [place] [facility]ALTH[facility]ARE SYSTEMTHYROID STIMULATING HORMONE on [id number] Qn0.120 m[IU]/LLowGerman Hospital Qnon 02-28-2024 Interpretation and review of laboratory resultsAbnormalCleveland Regency Hospital [facility] SerPl-aCncon [id number] Qn0.120 m[IU]/LLow0.270-4.200AvSelect [facility] Comment on above:Order Comment: Specimen Type: BLOOD SPECIMEN Ordering Facility: [facility] Address: [address] [place], [place] [address]Performed By: #### 3016-3, 53215-8 #### [facility] CLIA [id number] [address] [place] [address] [place] STATES OF AMERICACNOVon 01-07-5948WTZGLtrlbg Visit ([facility]) BILLIE YEBOAH ([id number]) 1945 F Date Time Provider Department 02/23/24 [...] ALLERGIES Allergen Reactions Ciprofloxacin Rash, Unknown Nitrofurantoin [place]* Other: See Comments, GI Upset Sulfamethoxazole-Tr* Other: [...] exam reveals no gross blood or masses Flare Maker present: Yes, Sarah Z Anoscopy: The patient [...] MD Colorectal Surgery Referring Provider: MANOJ FORBES [[id number]] Allergies As of Date: 02/23/2024 Noted Allergy Reaction CIPROFLOXACIN 05/31/2013 2 - Rash 16 - Unknown NITROFURANTOIN MONOHYD/M-CRYST 10/27/2022 14 - Other: See Comments 8 - GI Upset SULFAMETHOXAZOLE-TRIMETHOPRIM 05/31/2013 14 - Other: See Comments 2 - Rash Date Reviewed: 02/23/2024 Reviewed by: Sarah Marroquin OCCA - Fully Assessed Reason for Visit: New Patient [172] Hemorrhoids [82455] Rectal Bleeding [202] Primary Visit Diagnosis:Hemorrhoids, unspecified hemorrhoid type [K64.9] Prescriptions as of [...] (None) Encounter Status:Closed by FUNMILAYO ODELL on 02/25/24NoMer[facility] AUTO DIFFon [id number] #0.0 103/ulNormal0.0-0.1The [facility]ittman HospitalComment on above:Performed By: #### IRON, VITAD #### [facility] [address] [place] [address] Dr. Ryann PearceBasophils/100 WBC (Bld)1.0 %Normal0.2-2.0The [facility] Comment on above:Performed By: #### IRON, VITAD #### [facility] [address] [place] [address] Dr. Ryann Rivera #0.2 103/ulNormal0.0-0.7The [facility]-Rittman HospitalComment on above: Performed By: #### IRON, VITAD #### [facility] [address] [place] [address] Dr. Ryann Escobarosinophils/100 WBC (Bld)3.8 %Normal0.9-7.0The [facility] Comment on above:Performed By: #### IRON, VITAD #### [facility] [address] [place] [address] Dr. Ryann Escobarrythrocyte distribution width (RBC) [Ratio]12.1 %Wuvcrb02.0-15.0 The [facility]-Rittman HospitalComment on above:Performed By: #### IRON, VITAD #### [facility] [address] [place] [address] Dr. Ryann PearceHematocrit (Bld) [Volume fraction]35.5 %Critically low36.0-48.0 Memorial Health SystemComment on above:Performed By: #### IRON, VITAD #### [facility] [address] [place] [address] Dr. Ryann PearceHemoglobin (Bld) [Mass/Vol]11.7 g/dLCritically low12.0-16.0Memorial Health SystemComment on above:Performed By: #### IRON, VITAD #### [facility] [address] [place] [address] Dr. Ryann Ortez #0.01 10e3/ulNormal0.00-0.03The [facility]-Rittman HospitalComment on above:Performed By: #### IRON, VITAD #### [facility] [address] [place] [address] Dr. Ryann Ortez %0.3 %Normal0.0-0.5The [facility]-Rittman HospitalComment on above: Performed By: #### IRON, VITAD #### [facility] [address] [place] [address] Dr. Ryann Puga #1.2 103/ulNormal1.2-3.8The [facility]-Rittman HospitalComment on above:Performed By: #### IRON, VITAD #### [facility] [address] [place] [address] Dr. Ryann Asifhocytes/100 WBC (Bld)31.5 %Yrvqeo53.5-60.0The [facility]ittman HospitalComascension borgess allegan hospital on above:Performed By: #### IRON, VITAD #### [facility] [address] [place] [address] Dr. Ryann MckinneyUAL DIFF REQNONormalThe [facility]-Rittman HospitalComment on above: Performed By: #### IRON, VITAD #### [facility] [address] [place] [address] Dr. Ryann Lisa (RBC) [Entitic mass]29.5 wvYgupgb45.7-34.0The [facility]-Rittman HospitalComment on above:Performed By: #### IRON, VITAD #### [facility] [address] [place] [address] Dr. Ryann James (RBC) [Mass/Vol]33.0 g/rCAhezwt48.9-35.2The [facility] on above:Performed By: #### IRON, VITAD #### [facility] [address] [place] [address] Dr. Ryann James (RBC) [Entitic vol]89.6 iWZhnfse78.0-99.0The [facility] on above:Performed By: #### IRON, VITAD #### [facility] [address] [place] [address] Dr. Ryann Gavin #0.5 103/ulNormal0.3-0.8The [facility]Rittman HospitalComment on above:Performed By: #### IRON, VITAD #### [facility] [address] [place] [address] Dr. Ryann Tanocytes/100 WBC (Bld)13.2 %Critically high1.7-12.0The [facility]-Rittman HospitalComment on above:Performed By: #### IRON, VITAD #### [facility] [address] [place] [address] Dr. Ryann SimonUT #2.0 103/ulNormal1.4-6.5The [facility]ittman HospitalComment on above:Performed By: #### IRON, VITAD #### [facility] [address] [place] [address] Dr. Ryann Simonutrophils/100 WBC (Bld)50.2 %Oacxxa34.0-75.0The [facility]ittman HospitalComment on above:Performed By: #### IRON, VITAD #### [facility] [address] [place] [address] Dr. Ryann PearcePlatelet mean volume (Bld) [Entitic vol]8.9 fLCritically low 9.5-13.5The [facility]ittman HospitalComment on above:Performed By: #### IRON, VITAD #### [facility] [address] [place] [address] Dr. Ryann PearcePLT253 103/rsIipfvy367-608Fua [facility]ittman HospitalComment on above: Performed By: #### IRON, VITAD #### [facility] [address] [place] [address] Dr. Ryann PearceRBC3.96 106/ulCritically low4.20-5.40The [facility] on above:Performed By: #### IRON, VITAD #### [facility] [address] [place] [address] Dr. Ryann PearceWBC3.9 103/ulCritically low4.0-11.0The [facility] on above:Performed By: #### IRON, VITAD #### [facility] [address] [place] [address] Dr. Ryann Olvera 14(COMP METB)on 67-01-3111Bpwapxr [Mass/Vol]3.3 g/dL Critically low3.4-5.0The [facility]ittman HospitalComment on above:Performed By: #### IRON, VITAD #### [facility] [address] [address] [address] Ryann PearceAlbumin/Globulin [Mass ratio]1.0 {ratio}NormalThe [facility]-Rittman HospitalComment on above:Performed By: #### IRON, VITAD #### [facility] [address] [address] [address] Ryann Nieves [Catalytic activity/Vol]65 U/ASlzzug06-796Tfs [facility]itt[facility] HospitalComment on above:Performed By: #### IRON, VITAD #### [facility] [address] [place] [address] Dr. Ryann Arthur [Catalytic activity/Vol]30 U/LWkmtew45-32Wcy [facility] HospitalComment on above:Performed By: #### IRON, VITAD #### [facility] [address] [address] [address] Ryann Medina gap [Moles/Vol]10.0 mmol/LNormalThe [facility] Comment on above:Performed By: #### IRON, VITAD #### [facility] [address] [address] [address] Ryann Mckeon [Catalytic activity/Vol]26 U/SFuulvr15-62Rvl [facility] HospitalComment on above:Performed By: #### IRON, VITAD #### [facility] [address] [address] [address] Ryann PearceBilirubin [Mass/Vol]0.4 mg/dLNormal0.2-1.0The [facility] Comment on above:Performed By: #### IRON, VITAD #### [facility] [address] [address] [address] Ryann PearceCalcium [Mass/Vol]8.8 mg/dLNormal8.5-10.1The [facility] Comment on above:Performed By: #### IRON, VITAD #### [facility] [address] [address] [address] Ryann PearceChloride [Moles/Vol]105 mmol/QLojrau73-544Abl [facility] Comment on above:Performed By: #### IRON, VITAD #### [facility] [address] [place] [address] Dr. Ryann PearceCO2 [Moles/Vol]30.1 mmol/IJomkss84.0-32.0The [facility] Comment on above:Performed By: #### IRON, VITAD #### [facility] [address] [place] [address] Dr. Ryann PearceCreatinine [Mass/Vol]0.90 mg/dLNormal0.55-1.02The [facility]ittman HospitalComment on above:Performed By: #### IRON, VITAD #### [facility] [address] [place] [address] Dr. Garzon ChangEGFR-AF IRANIAN>60Normal>=60The [facility]ittman HospitalComment on above:Performed By: #### IRON, VITAD #### [facility] [address] [place] [address] Dr. Ryann EscobarGFR-NON AF IRANIAN>60Normal>=60The [facility]ittman HospitalComment on above:Performed By: #### IRON, VITAD #### [facility] [address] [place] [address] Dr. Ryann PearceGlobulin (S) [Mass/Vol]3.3 g/dLNormalThe [facility]ittman HospitalComment on above:Performed By: #### IRON, VITAD #### [facility] [address] [place] [address] Dr. Ryann PearceGlucose [Mass/Vol]100 mg/dNFeqbqh15-749Bdp [facility] Comment on above:Performed By: #### IRON, VITAD #### [facility] [address] [place] [address] Dr. Ryann PearcePotassium [Moles/Vol]4.1 mmol/LNormal3.5-5.1The [facility] Comment on above:Performed By: #### IRON, VITAD #### [facility] [address] [place] [address] Dr. Ryann PearceProtein [Mass/Vol]6.6 g/dLNormal6.4-8.2The [facility] Comment on above:Performed By: #### IRON, VITAD #### [facility] [address] [place] [address] Dr. Ryann Huertadium [Moles/Vol]141 mmol/MIwiyjh910-136Xau [facility] Comment on above:Performed By: #### IRON, VITAD #### [facility] [address] [place] [address] Dr. Ryann PearceUrea nitrogen [Mass/Vol]13.0 mg/dLNormal7.0-18.0The [facility]ittman HospitalComment on above:Performed By: #### IRON, VITAD #### [facility] [address] [place] [address] Dr. Ryann PearceUrea nitrogen/Creatinine [Mass ratio]14.4 mg/mgNormalThe [facility]ittman HospitalComment on above:Performed By: #### IRON, VITAD #### [facility] [address] [place] [address] Dr. Ryann Ely AUTO DIFFon [id number] #0.0 103/ulNormal0.0-0.1The [facility]ittman HospitalComment on above:Performed By: #### IRON, VITAD #### [facility] [address] [place] [address] Dr. Ryann PearceBasophils/100 WBC (Bld)1.2 %Normal0.2-2.0The [facility] Comment on above:Performed By: #### IRON, VITAD #### [facility] [address] [place] [address] Dr. Ryann Rivera #0.1 103/ulNormal0.0-0.7The [facility]ittman HospitalComment on above: Performed By: #### IRON, VITAD #### [facility] [address] [place] [address] Dr. Ryann Escobarosinophils/100 WBC (Bld)3.3 %Normal0.9-7.0[facility] Comment on above:Performed By: #### IRON, VITAD #### [facility] [address] [place] [address] Dr. Ryann Escobarrythrocyte distribution width (RBC) [Ratio]12.5 %Qapnjg04.0-15.0 The [facility]-Rittman HospitalComment on above:Performed By: #### IRON, VITAD #### [facility] [address] [place] [address] Dr. Ryann PearceHematocrit (Bld) [Volume fraction]38.7 %Ojszpl97.0-48.0The [facility]-Rittman HospitalComment on above:Performed By: #### IRON, VITAD #### [facility] [address] [place] [address] Dr. Ryann PearceHemoglobin (Bld) [Mass/Vol]12.8 g/oTDeycjt32.0-16.0The [facility]ittman HospitalComment on above:Performed By: #### IRON, VITAD #### [facility] [address] [place] [address] Dr. Ryann Ortez #0.01 10e3/ulNormal0.00-0.03The [facility]ittman HospitalComment on above:Performed By: #### IRON, VITAD #### [facility] [address] [place] [address] Dr. Ryann Ortez %0.3 %Normal0.0-0.5The [facility]-Rittman HospitalComment on above: Performed By: #### IRON, VITAD #### [facility] [address] [place] [address] Dr. Ryann Puga #1.1 103/ulCritically low1.2-3.8The [facility] Comment on above:Performed By: #### IRON, VITAD #### [facility] [address] [place] [address] Dr. Ryann Sandersmphocytes/100 WBC (Bld)32.0 %Kdgehw08.5-60.0The [facility]ittman HospitalComment on above:Performed By: #### IRON, VITAD #### [facility] [address] [place] [address] Dr. Ryann Chisholm DIFF REQNONormalThe [facility]Rittman HospitalComment on above: Performed By: #### IRON, VITAD #### [facility] [address] [place] [address] Dr. Ryann James (RBC) [Entitic mass]29.6 baZrkmmq69.7-34.0The [facility]ittman HospitalComment on above:Performed By: #### IRON, VITAD #### [facility] [address] [place] [address] Dr. Ryann James (RBC) [Mass/Vol]33.1 g/iRDdfxkc77.9-35.2The [facility]ittman HospitalComment on above:Performed By: #### IRON, VITAD #### [facility] [address] [place] [address] Dr. Ryann James (RBC) [Entitic vol]89.4 rGJffqey53.0-99.0The [facility]ittman HospitalComment on above:Performed By: #### IRON, VITAD #### [facility] [address] [place] [address] Dr. Ryann Gavin #0.4 103/ulNormal0.3-0.8The [facility]Rittman HospitalComment on above:Performed By: #### IRON, VITAD #### [facility] [address] [place] [address] Dr. Ryann Tanocytes/100 WBC (Bld)11.1 %Normal1.7-12.0The [facility] Comment on above:Performed By: #### IRON, VITAD #### [facility] [address] [place] [address] Dr. Ryann Escobar #1.7 103/ulNormal1.4-6.5The [facility]ittman HospitalComment on above:Performed By: #### IRON, VITAD #### [facility] [address] [place] [address] Dr. Ryann Simonutrophils/100 WBC (Bld)52.1 %Tqwuml41.0-75.0The [facility]-Rittman HospitalComment on above:Performed By: #### IRON, VITAD #### [facility] [address] [place] [address] Dr. Ryann Morrison mean volume (Bld) [Entitic vol]9.3 fLCritically low 9.5-13.5The [facility]ittman HospitalComment on above:Performed By: #### IRON, VITAD #### [facility] [address] [place] [address] Dr. Ryann PearcePLT255 103/rmDjlply717-845Htg [facility] HospitalComment on above: Performed By: #### IRON, VITAD #### [facility] [address] [place] [address] Dr. Ryann PearceRBC4.33 106/ulNormal4.20-5.40The [facility]ittman HospitalComment on above:Performed By: #### IRON, VITAD #### [facility] [address] [place] [address] Dr. Ryann PearceWBC3.3 103/ulCritically low4.0-11.0The [facility]ittman HospitalComment on above:Performed By: #### IRON, VITAD #### [facility] [address] [place] [address] Dr. Ryann Sabillon THYROXINE INDEX T7on 84-38-8687JMP2.43Rakobd5.30-4.50The [facility]-Rittman HospitalComment on above:Performed By: #### TSH, LIPID, T7, CMP #### [facility] [address] [place] [address] Dr. Ryann PearceT3U34.0 %Kwpggy54.0-39.0The [facility]ittman HospitalComment on above: Performed By: #### TSH, LIPID, T7, CMP #### [facility] [address] [place] [address] Dr. Ryann PearceT4 [Mass/Vol]8.70 ug/dLNormal4.80-13.90The [facility] Comment on above:Performed By: #### TSH, LIPID, T7, CMP #### [facility] [address] [address] [address] Ryann PearceGLYCOHEMOGLOBIN A1Con 76-60-5164URH RECOMMENDATIONSEE BELOWBlanchard Valley Health SystemComascension borg[facility] allegan hospital on above:Result Comment: ADA RECOMMENDED LIMIT 4.0 - 6.0 ADA THERAPEUTIC TARGET < 7.0 ACTION SUGGESTED > 7.0Performed By: #### A1C #### [facility] [address] [address] [address] Ryann PearceGlucose [Mass/Vol]105 mg/dLNoZanesville City HospitalComment on above:Performed By: #### A1C #### [facility] [address] [place] [address] Dr. Ryann PearceHbA1c (Bld) [Mass fraction]5.3 %Normal4.5-6.2The [facility]Rittman HospitalComment on above:Performed By: #### A1C #### [facility] [address] [place] [address] Dr. Ryann Romero [id number] [Mass/Vol]104.0 ug/qHJedjzo01.0-170.0The [facility]ittman HospitalComment on above:Performed By: #### IRON, VITAD #### [facility] [address] [place] [address] Dr. Ryann PearceLIPID PROFILEon 64-94-7831PRLT-HDL RATIO NORMSEE [facility] HospitalComment on above:Result Comment: 3.3 - 4.4 LOW RISK 4.4 - 7.1 AVERAGE RISK 7.1 - 11.0 MODERATE RISK >11.0 HIGH RISKPerformed By: #### TSH, LIPID, T7, CMP #### [facility] [address] [place] [address] Dr. Ryann PearceCholesterol [Mass/Vol]160 mg/dLNormal<=200The [facility] Comment on above:Performed By: #### TSH, LIPID, T7, CMP #### [facility] [address] [place] [address] Dr. Ryann PearceCholesterol in HDL [Mass/Vol]75 mg/dLCritically eyfw71-74KlpMemorial Health SystemComment on above:Performed By: #### TSH, LIPID, T7, CMP #### [facility] [address] [address] [address] Ryann Staplesesterol in LDL [Mass/Vol]66.6 mg/dLNoZanesville City HospitalComment on above:Performed By: #### TSH, LIPID, T7, CMP #### [facility] [address] [address] [address] Ryann Carlisle.total/Cholesterol in HDL [Mass ratio]2.1 {ratio} NormalThe [facility]Rittman HospitalComment on above:Performed By: #### TSH, LIPID, T7, CMP #### [facility] [address] [place] [address] Dr. Ryann Sargent NORMAL> or = 60 mg/dl - LOW CARDIOVASCULAR RISK <40 mg/dl - HIGH CARDIOVASCULAR RISKNoZanesville City HospitalComment on above:Performed By: #### TSH, LIPID, T7, CMP #### [facility] [address] [place] [address] Dr. Ryann Rowell CALC NORMALSEE BELOWCincinnati Children's Hospital Medical CenterComment on above:Result Comment: <100 mg/dl OPTIMAL 100 - 129 mg/dl NEAR OR ABOVE OPTIMAL 130 - 159 mg/dl BORDERLINE HIGH 160 - 189 mg/dl HIGH >190 mg/dl VERY HIGH Performed By: #### TSH, LIPID, T7, CMP #### [facility] [address] [address] [address] Ryann PearceTriglyceride [Mass/Vol]92 mg/dLNormal<=150[facility] Comment on above:Performed By: #### TSH, LIPID, T7, CMP #### [facility] [address] [place] [address] Dr. Ryann BlancaLDL CALC18.4 mg/dLNoZanesville City HospitalComment on above: Performed By: #### TSH, LIPID, T7, CMP #### [facility] [address] [place] [address] Dr. Yilan ChangPROF 14(COMP METB)on 61-66-4979Jlaznth [Mass/Vol]3.4 g/dLNormal 3.4-5.0The [facility]ittman HospitalComment on above:Performed By: #### TSH, LIPID, T7, CMP #### [facility] [address] [place] [address] Dr. Ryann PearceAlbumin/Globulin [Mass ratio]1.0 {ratio}NormalThe [facility]ittman HospitalComment on above:Performed By: #### TSH, LIPID, T7, CMP #### [facility] [address] [place] [address] Dr. Ryann Nieves [Catalytic activity/Vol]71 U/GDqkuqz93-244Blb [facility] HospitalComment on above:Performed By: #### TSH, LIPID, T7, CMP #### [facility] [address] [place] [address] Dr. Ryann PazT [Catalytic activity/Vol]19 U/XQjfhtj66-44Gno [facility] HospitalComment on above:Performed By: #### TSH, LIPID, T7, CMP #### [facility] [address] [place] [address] Dr. Ryann Medina gap [Moles/Vol]7.8 mmol/LNormalThe [facility]ittman HospitalComment on above:Performed By: #### TSH, LIPID, T7, CMP #### [facility] [address] [place] [address] Dr. Ryann PearceAST [Catalytic activity/Vol]21 U/KIujhcb67-64Qdq [facility] HospitalComment on above:Performed By: #### TSH, LIPID, T7, CMP #### [facility] [address] [place] [address] Dr. Ryann PearceBilirubin [Mass/Vol]0.6 mg/dLNormal0.2-1.0The [facility] Comment on above:Performed By: #### TSH, LIPID, T7, CMP #### [facility] [address] [place] [address] Dr. Ryann PearceCalcium [Mass/Vol]8.7 mg/dLNormal8.5-10.1The [facility] Comment on above:Performed By: #### TSH, LIPID, T7, CMP #### [facility] [address] [address] [address] Ryann PearceChloride [Moles/Vol]103 mmol/BHxpybq15-594Nuk [facility] Comment on above:Performed By: #### TSH, LIPID, T7, CMP #### [facility] [address] [address] [address] Ryann PearceCO2 [Moles/Vol]34.4 mmol/LCritically high21.0-32.0The [facility]man HospitalComment on above:Performed By: #### TSH, LIPID, T7, CMP #### [facility] [address] [place] [address] Dr. Ryann PearceCreatinine [Mass/Vol]0.75 mg/dLNormal0.55-1.02The [facility]ittman HospitalComment on above:Performed By: #### TSH, LIPID, T7, CMP #### [facility] [address] [place] [address] Dr. Ryann EscobarGFR-AF IRANIAN>60Normal>=60The [facility]ittman HospitalComment on above:Performed By: #### TSH, LIPID, T7, CMP #### [facility] [address] [place] [address] Dr. Ryann EscobarGFR-NON AF IRANIAN>60Normal>=60The [facility]ittman HospitalComment on above:Performed By: #### TSH, LIPID, T7, CMP #### [facility] [address] [address] [address] Ryann PearceGlobulin (S) [Mass/Vol]3.5 g/dLNormalThe [facility] HospitalComment on above:Performed By: #### TSH, LIPID, T7, CMP #### [facility] [address] [place] [address] Dr. Ryann PearceGlucose [Mass/Vol]95 mg/jYWdtkfy68-994Zsf [facility] Comment on above:Performed By: #### TSH, LIPID, T7, CMP #### [facility] [address] [place], [place] [id number] Dr. Ryann PearcePotassium [Moles/Vol]4.2 mmol/LNormal3.5-5.1The [facility] Comment on above:Performed By: #### TSH, LIPID, T7, CMP #### [facility] [address] [place] [address] Dr. Ryann PearceProtein [Mass/Vol]6.9 g/dLNormal6.4-8.2The [facility] Comment on above:Performed By: #### TSH, LIPID, T7, CMP #### [facility] [address] [place] [address] Dr. Ryann PearceSodium [Moles/Vol]141 mmol/OEflxoe332-630Qrv [facility] Comment on above:Performed By: #### TSH, LIPID, T7, CMP #### [facility] [address] [place] [address] Dr. Ryann PearceUrea nitrogen [Mass/Vol]10.0 mg/dLNormal7.0-18.0The [facility]ittman HospitalComment on above:Performed By: #### TSH, LIPID, T7, CMP #### [facility] [address] [place] [address] Dr. Ryann Hester nitrogen/Creatinine [Mass ratio]13.3 mg/mgNormalThe [facility]sworth-Rittman HospitalComment on above:Performed By: #### TSH, LIPID, T7, CMP #### [facility] [address] [place] [address] Dr. Ryann Talbert 80-53-4477SQZ0.151 uIU/mLCritically low0.358-3.740The [facility]ittman HospitalComment on above:Performed By: #### TSH, LIPID, T7, CMP #### [facility] [address] [place] [address] Dr. Ryann PearceVITAMIN D 25 OHon 65-11-8525NCF D 25-OH75.4 ng/mLNormalThe [facility]sworth-Rittman HospitalComment on above:Performed By: #### IRON, VITAD #### [facility] [address] [place] [address] Dr. Ryann MACEDO BELOWCincinnati Children's Hospital Medical CenterComment on above: Result Comment: <20 ng/mL Vit D deficient 20 - <30 ng/mL Vit D insufficient 30 - 100 ng/mL Vit D sufficient >100 ng/mL Potential ToxicityPerformed By: #### IRON, VITAD #### [facility] [address] [place], [place] [address] Dr. Ryann PearceMG MAMM SCREEN 3D KRISTINA CADon [id number] MAMM SCREEN 3D KRISTINA CAD Patient: BILLIE YEBOAH Exam Date: 05/11/2022 : 1945 Gender:F Ordering : DR GISELLA CHAMORRO . Admission #: [id number] Family : Order #: [id number] CLICK HERE TO VIEW EXAM RADIOLOGY REPORT [...] breast cancer at age 80. LOCATION: [facility] BREAST COMPOSITION: Scattered areas fibroglandular density. [...] by: Funmilayo Macias MD on 05/11/2022 at 12:45[facility] AUTO DIFFon [id number] #0.0 103/ulNormal0.0-0.1The [facility]-Rittman HospitalComment on above:Performed By: #### IRON, VITAD #### [facility] [address] [place], [place] [address] Dr. Ryann PearceBasophils/100 WBC (Bld)0.5 %Normal0.2-2.0The [facility] Comment on above:Performed By: #### IRON, VITAD #### [facility] [address] [place] [address] Dr. Ryann Rivera #0.2 103/ulNormal0.0-0.7The [facility]-Rittman HospitalComment on above: Performed By: #### IRON, VITAD #### [facility] [address] [place] [address] Dr. Ryann Escobarosinophils/100 WBC (Bld)3.9 %Normal0.9-7.0The [facility] Comment on above:Performed By: #### IRON, VITAD #### [facility] [address] [place] [address] Dr. Ryann Escobarrythrocyte distribution width (RBC) [Ratio]12.8 %Tyfvmi08.0-15.0 The [facility]-Rittman HospitalComment on above:Performed By: #### IRON, VITAD #### [facility] [address] [place] [address] Dr. Ryann PearceHematocrit (Bld) [Volume fraction]36.5 %Ltxkbm88.0-48.0The [facility]-Rittman HospitalComment on above:Performed By: #### IRON, VITAD #### [facility] [address] [place] [address] Dr. Ryann PearceHemoglobin (Bld) [Mass/Vol]11.9 g/dLCritically low12.0-16.0The [facility]ittman HospitalComment on above:Performed By: #### IRON, VITAD #### [facility] [address] [place] [address] Dr. Ryann Ortez #0.01 10e3/ulNormal0.00-0.03The [facility]-Rittman HospitalComment on above:Performed By: #### IRON, VITAD #### [facility] [address] [place] [address] Dr. Ryann Ortez %0.2 %Normal0.0-0.5The [facility]-Rittman HospitalComment on above: Performed By: #### IRON, VITAD #### [facility] [address] [place] [address] Dr. Ryann Puga #1.1 103/ulCritically low1.2-3.8The [facility] Comment on above:Performed By: #### IRON, VITAD #### [facility] [address] [place] [address] Dr. Rynan Asifhocytes/100 WBC (Bld)25.5 %Ygaukr59.5-60.0The [facility]-Rittman HospitalComment on above:Performed By: #### IRON, VITAD #### [facility] [address] [place] [address] Dr. Ryann Chisholm DIFF REQNONormalThe [facility]-Rittman HospitalComment on above: Performed By: #### IRON, VITAD #### [facility] [address] [place] [address] Dr. Ryann James (RBC) [Entitic mass]29.6 paBvrmcj68.7-34.0The [facility] HospitalComment on above:Performed By: #### IRON, VITAD #### [facility] [address] [place] [address] Dr. Ryann James (RBC) [Mass/Vol]32.6 g/xSFmobtl42.9-35.2The [facility]ittman HospitalComment on above:Performed By: #### IRON, VITAD #### [facility] [address] [place] [address] Dr. Ryann James (RBC) [Entitic vol]90.8 fMCvpjdi74.0-99.0The [facility]ittman HospitalComment on above:Performed By: #### IRON, VITAD #### [facility] [address] [place] [address] Dr. Ryann Gavin #0.4 103/ulNormal0.3-0.8The [facility]-Rittman HospitalComment on above:Performed By: #### IRON, VITAD #### [facility] [address] [place] [address] Dr. Ryann Tanocytes/100 WBC (Bld)10.4 %Normal1.7-12.0The [facility] Comment on above:Performed By: #### IRON, VITAD #### [facility] [address] [place] [address] Dr. Ryann Escobar #2.5 103/ulNormal1.4-6.5The [facility]-Rittman HospitalComment on above:Performed By: #### IRON, VITAD #### [facility] [address] [place] [address] Dr. Ryann Simonutrophils/100 WBC (Bld)59.5 %Tduxup46.0-75.0The [facility]-Rittman HospitalComment on above:Performed By: #### IRON, VITAD #### [facility] [address] [place] [address] Dr. Ryann Morrison mean volume (Bld) [Entitic vol]9.1 fLCritically low 9.5-13.5The [facility]ittman HospitalComment on above:Performed By: #### IRON, VITAD #### [facility] [address] [place] [address] Dr. Ryann SerranoT283 103/qyPmodrv491-351Fzl [facility]ittman HospitalComment on above: Performed By: #### IRON, VITAD #### [facility] [address] [place] [address] Dr. Ryann PearceRBC4.02 106/ulCritically low4.20-5.40The [facility] Hospitalment on above:Performed By: #### IRON, VITAD #### [facility] [address] [place] [address] Dr. Ryann PearceWBC4.2 103/ulNormal4.0-11.0The [facility]-Rittman HospitalComment on above: Performed By: #### IRON, VITAD #### [facility] [address] [place] [address] Dr. Ryann Olvera 14(COMP METB)on 31-13-3982Syhvfal [Mass/Vol]3.5 g/dLNormal 3.4-5.0The [facility]ittman HospitalComment on above:Performed By: #### IRON, VITAD #### [facility] [address] [place] [address] [address] Ryann PearceAlbumin/Globulin [Mass ratio]1.0 {ratio}NormalThe [facility] Hospitalment on above:Performed By: #### IRON, VITAD #### [facility] [address] [place] [address] [address] Ryann Nieves [Catalytic activity/Vol]68 U/XDavhkq65-428Uyr [facility]ittman HospitalComment on above:Performed By: #### IRON, VITAD #### [facility] [address] [place] [address] [address] Ryann Arthur [Catalytic activity/Vol]22 U/UBqrxna94-99Tvv [facility] Hospitalment on above:Performed By: #### IRON, VITAD #### [facility] [address] [place] [address] [address] Ryann Guerreroon gap [Moles/Vol]11.8 mmol/LNormalThe [facility] Comment on above:Performed By: #### IRON, VITAD #### [facility] [address] [place] [address] [address] Ryann PearceAST [Catalytic activity/Vol]21 U/RPqkkld71-53Dnk [facility] Hospitalment on above:Performed By: #### IRON, VITAD #### [facility] [address] [place] [address] [address] Ryann PearceBilirubin [Mass/Vol]0.5 mg/dLNormal0.2-1.0The [facility] Comment on above:Performed By: #### IRON, VITAD #### [facility] [address] [place] [address] [address] Ryann PearceCalcium [Mass/Vol]8.9 mg/dLNormal8.5-10.1The [facility] Comment on above:Performed By: #### IRON, VITAD #### [facility] [address] [place] [address] [address] Ryann PearceChloride [Moles/Vol]104 mmol/VRmqxjm15-642Ltv [facility] Comment on above:Performed By: #### IRON, VITAD #### [facility] [address] [place] [address] [address] Ryann PearceCO2 [Moles/Vol]29.1 mmol/TMuickw50.0-32.0The [facility] Comment on above:Performed By: #### IRON, VITAD #### [facility] [address] [place] [address] [address] Ryann PearceCreatinine [Mass/Vol]0.66 mg/dLNormal0.55-1.02The [facility]ittman HospitalComment on above:Performed By: #### IRON, VITAD #### [facility] [address] [place] [address] [address] Ryann EscobarGFR-AF IRANIAN>60Normal>=60The [facility]ittman HospitalComment on above:Performed By: #### IRON, VITAD #### [facility] [address] [address] [address] Ryann EscobarGFR-NON AF IRANIAN>60Normal>=60The [facility]ittman HospitalComment on above:Performed By: #### IRON, VITAD #### [facility] [address] [place] [address] [address] Ryann PearceGlobulin (S) [Mass/Vol]3.4 g/dLNormalThe [facility]ittman HospitalComment on above:Performed By: #### IRON, VITAD #### [facility] [address] [place] [address] [address] Ryann PearceGlucose [Mass/Vol]106 mg/zCTkdivo33-738Npk [facility] Comment on above:Performed By: #### IRON, VITAD #### [facility] [address] [place] [address] [address] Ryann PearcePotassium [Moles/Vol]3.9 mmol/LNormal3.5-5.1The [facility] Comment on above:Performed By: #### IRON, VITAD #### [facility] [address] [place] [address] [address] Ryann PearceProtein [Mass/Vol]6.9 g/dLNormal6.4-8.2[facility] Comment on above:Performed By: #### IRON, VITAD #### [facility] [address] [place] [address] [address] Ryann PearceSodium [Moles/Vol]141 mmol/RQijxpl198-974Zpt [facility] Comment on above:Performed By: #### IRON, VITAD #### [facility] [address] [place] [address] [address] Ryann Hester nitrogen [Mass/Vol]14.0 mg/dLNormal7.0-18.0[facility] SystemComment on above:Performed By: #### IRON, VITAD #### [facility] [address] [place] [address] [address] Ryann Hester nitrogen/Creatinine [Mass ratio]21.2 mg/mgNormalThe [facility]-Rittman HospitalComment on above:Performed By: #### IRON, VITAD #### [facility] [address] [place] [address] [address] Ryann PearceXR knee RT 3Von 55-58-8813KF knee RT 3V[facility] [employer] Other XR knee RT 3VAudubon [facility] [employer] Other XR knee RT [id number] [place] [address] [employer] Other XR knee RT 3[place]SReno, [place] [address]PeqsmNew [facility]ide [facility] [employer] Other XR knee RT 3VXRSaint [facility] [employer] Other XR knee RT 3VSAudrain Medical Center Descubre.la Other XR knee RT 3VPatient: Billie Yeboah MR#: [id number] [place] Other XR knee RT [id number] [employer] Other XR knee RT 3VDOB: 1945 Acct:[id number] [place] [employer] Other XR knee RT 3VAge/Sex: 76 / F ADM Date: 02/02/22[place] Other XR knee RT 3VLoc: SOXD Room: Type: [facility] [employer] Other XR knee RT 3VAttending Dr: Sydney Oswald II, MD [place] [employer] Other XR knee RT 3VCopies to: Sydney Oswald MDManchester [place].la Other XR knee RT 3VOrdering Provider: Sydney Oswald MD [employer] Other XR knee RT 3VDate of Service: 02/02/22[place] Other XR knee RT 3VAccession #: ([id number]) XR/XR knee RT 3V - NOT FOR ER USE: History of total right kneeNowashington university medical center [place] Other XR knee RT 3VreplacementM[place] Other XR knee RT 3VRIGHT KNEE - 3 viewsNowashington university medical center [place] Other XR knee RT 3VCLINICAL HISTORY: Follow-up right total knee arthroplastyManchester [place] Other XR knee RT 3VCOMPARISON: Right knee 12/20/2021[place] [employer] Other XR knee RT 3VFINDINGS:[employer] Other XR knee RT 3VRight knee prosthesis without radiographic complication. No acute bony process.[employer] Other XR knee RT 3VORDER #: [id number] XR/XR knee RT 3V - NOT FOR ER USEManchester Descubre.la Other XR knee RT 3VIMPRESSION:[employer] Other XR knee RT 3VNO EVIDENCE OF HARDWARE COMPLICATION. [employer] Other XR knee RT 3VImpression dictated by: Migue Groves Jr., ElishaOSun02/02/2022 4:[address] [facility] [employer] Other xr knee RT 3VDictation Location: [id number] [employer] Other xr knee RT 3VTranscribed By: PWS 02/02/[address] [place] [address] [employer] Other xr knee RT 3VDictated By: Migue Groves Jr, DO 02/02/[address] [place] [address] [employer] Other xr knee RT 3VSigned By:[facility] [employer] Other [phone] knee RT 3V02/02/[address] [place] [address] [employer] Other [id number] Positive/NegativeOrdered By: Sydney Oswald on 48-95-8899ZGMN-CoV-2 (COVID-19) N gene BRAULIO+probe Ql (Resp)NegativeNegative [facility] Hamilton HospitalComment on above:Testing for SARS-CoV-2 by RT-PCR This test was developed and its performance characteristics determined by [employer] ([employer] and validated at the [facility]. This test has not been FDA [...] unless the authorization is terminated or revoked sooner.Automated erythrocytes count in urine sediment (number/area) Ordered By: Sydney Oswald on 03-38-7563SZV Auto (Urine sed) [#/Area]1-2 [HPF] 0-4FOhio Valley HospitalAutomated leukocytes count in urine sediment (number/area)Ordered By: Sydney Oswald on 50-98-0519YDR Auto (Urine sed) [#/Area]None seen [HPF]0-4FOhio Valley HospitalBasophils Auto (Bld) [#/Vol]Ordered By: Sydney Oswald on 61-69-1982Lcchjpgaz (Bld) [#/Vol]0.0 10*3/uL0.0-0.2FOhio Valley HospitalBasophils/100 WBC Auto (Bld) Ordered By: Sydney Oswald on 06-18-2182Bbcsyjkki/100 WBC (Bld)0.9 %.[facility] HospitalBilirubin Test strip Ql (U)Ordered By: Sydney Oswald on 90-77-9841Kaynkjgdx Ql (U)NegativeNegativeFort Hamilton Hospital Blood hemoglobin measurement (mass/volume)Ordered By: Sydney Oswald on 76-21-1158Zcneyhjryp (Bld) [Mass/Vol]13.1 g/dL11.8-15.4FOhio Valley HospitalBlood leukocytes automated count (number/volume)Ordered By: Sydney Oswald on 86-85-6663DDB (Bld) [#/Vol]3.8 10*3/uL4.5-11.0[facility] HospitalCT biopsyOrdered By: Sydney Oswald on 46-39-8158LD oewybu948 umol/L0-285Fort [facility] HospitalComment on above:Published reference interval for apparently healthy subjects between age 20 and 60 is 205 - 285 umol/L and in a poorly controlled diabetic population is 228 - 563 umol/L with a mean of 396 umol/L. Performed at: [facility] Lab[address] [id number] [employer]: Fortunato Garcia PhD, Phone: [phone] Auto (U)Ordered By: Sydney Oswald on 88-66-0968Vdefc (U)YellowYellowFort Hamilton HospitalCreatinine and Glomerular filtration rate.predicted panel (S/P/Bld)Ordered By: Sydney Oswald on 56-79-7687Ytcbrfxrgv [Mass/Vol]0.86 mg/dL0.44-1.03 [facility] HospitalEosinophils Auto (Bld) [#/Vol]Ordered By: Sydney Oswald on 82-89-1087Tlggrbmzlkn (Bld) [#/Vol]0.1 10*3/uL0.0-0.45 [facility] HospitalEosinophils/100 WBC Auto (Bld)Ordered By: Sydney Oswald on 61-50-0923Ewfrsuvmrod/100 WBC (Bld)2.4 %.[facility] HospitalErythrocyte distribution width Auto (RBC) [Ratio]Ordered By: Sydney Oswald on 98-26-7949Yqxvxqugiwg distribution width (RBC) [Ratio]12.5 % 11.9-15.3FOhio Valley HospitalEstimated glomerular filtration rate (GFR) non- AmericanOrdered By: Sydney Oswald on 04-98-8789SKW/1.73 sq M.predicted among non-blacks MDRD (S/P/Bld) [Vol rate/Area]> 60 mL/MinFort Hamilton HospitalHematocrit Auto (Bld) [Volume fraction]Ordered By: Sydney Oswald on 90-08-5333Iibxzpznia (Bld) [Volume fraction]39.0 %34.0-46.4FOhio Valley HospitalKetones Auto test strip (U) [Mass/Vol]Ordered By: Sydney Oswald on 37-43-0573Xxqrsnb (U) [Mass/Vol]NegativeNegativeFort Hamilton HospitalLaboratory - Hematology and Cell countsOrdered By: Sydney Oswald on 00-97-1819Mwypfgkij RBC/100 WBC (Bld) [Ratio]0.0 %0-0.5FOhio Valley HospitalLaboratory - UrinalysisOrdered By: Sydney Oswald on 12-07-2021 Hyaline casts LM Ql (Urine sed)None seen [LPF]0-8[facility] HospitalLymphocytes Auto (Bld) [#/Vol]Ordered By: Sydney Oswald on 12-07-2021 Lymphocytes (Bld) [#/Vol]1.0 10*3/uL1.00-4.8[facility] Lymphocytes/100 WBC Auto (Bld)Ordered By: Sydney Oswald on 12-07-2021 Lymphocytes/100 WBC (Bld)26.7 %.[facility] DaytonH Auto (RBC) [Entitic mass]Ordered By: Sydney Oswald on 73-74-9455LQR (RBC) [Entitic mass] 29.7 pg24.7-34.3FOhio Valley HospitalMCHC Auto (RBC) [Mass/Vol] Ordered By: Sydney Oswald on 56-65-0238VLML (RBC) [Mass/Vol]33.5 g/dL32.0-35.0 [facility] HospitalMCV Auto (RBC) [Entitic vol]Ordered By: ySdney Oswald on 24-42-6954BTJ (RBC) [Entitic vol]88.7 pR05-542VhwblgldqFort Hamilton HospitalMonocytes Auto (Bld) [#/Vol]Ordered By: Sydney Oswald on 42-11-3479Zewdmmwhi (Bld) [#/Vol]0.4 10*3/uL0.0-0.8[facility] HospitalMonocytes/100 WBC Auto (Bld)Ordered By: Sydney Oswald on 12-07-2021 Monocytes/100 WBC (Bld)11.1 %.[facility] HospitalNeutrophils Auto (Bld) [#/Vol]Ordered By: Sydney Oswald on 20-65-1756Mlzauvjkzrq (Bld) [#/Vol] 2.2 10*3/uL1.8-7.7FOhio Valley HospitalNeutrophils/100 WBC Auto (Bld)Ordered By: Sydney Oswald on 63-57-1953Utmwuznixvo/100 WBC (Bld)58.9 %. [facility] HospitalNitrite Test strip Ql (U)Ordered By: Sydney Oswald on 52-68-9582Fduvcnu Ql (U)NegativeNegativeFort Hamilton HospitalNo Panel InformationOrdered By: Sydney Oswald on 97-14-2584Buewwegwf GFR ()> 60 mL/MinFort Hamilton HospitalComment on above: GFR estimated reference range: According to KDOQI guidelines, <60 ml/min/1.73m2 is sufficient todiagnose a patient with chronic kidney disease.Pharmacy Creatinine Clearance (ChemN/[facility] HospitalPlatelet mean volume Auto (Bld) [Entitic vol]Ordered By: Sydney Oswald on 20-29-5727Bbkpitpo mean volume (Bld) [Entitic vol]8.2 fL6.3-10.7FOhio Valley Hospital Platelets Auto (Bld) [#/Vol]Ordered By: Sydney Oswald on 81-32-6986Yzcwnbvyq (Bld) [#/Vol]274 10*3/zA416-592JvjfescuiFort Hamilton HospitalProtein Auto test strip (U) [Mass/Vol]Ordered By: Sydney Oswald on 07-39-4932Zogvoet (U) [Mass/Vol]NegativeNegativeFort Hamilton HospitalRBC Auto (Bld) [#/Vol]Ordered By: Sydney Oswald on 63-85-3556HXM (Bld) [#/Vol]4.40 10*6/uL 3.60-5.00Summa Healtherum or plasma calcium measurement (mass/volume)Ordered By: Sydney Oswald on 53-15-3354Elkclsw [Mass/Vol]9.3 mg/dL8.2-10.2FMorrow County Hospitalerum or plasma chloride measurement (moles/volume)Ordered By: Sydney Oswald on 95-99-2134Sgdcidgz [Moles/Vol]99 mmol/L79-592YziweqxdaSumma Healtherum or plasma glucose measurement (mass/volume)Ordered By: Sydney Oswald on 12-07-2021 Glucose [Mass/Vol]94 mg/qW02-445GpkfdcsmrFort Hamilton HospitalComment on above:ADA recommended reference range Random Glucose Reference Range is dependent on time and content of last meal. Glucose of more than 200 mg/dL in a nonstressed, ambulatory subject supports the diagnosis of Diabetes Mellitus.Serum or plasma potassium measurement (moles/volume)Ordered By: Sydney Oswald on 87-47-3438Zbqbyjsne [Moles/Vol]4.4 mmol/L3.5-5.1FMorrow County Hospitalerum or plasma sodium measurement (moles/volume)Ordered By: Sydney Oswald on 35-92-2609Jmrnof [Moles/Vol]139 mmol/J648-553ViagkascuSumma Healtherum or plasma total carbon dioxide measurement (moles/volume)Ordered By: Sydney Oswald on 41-03-7586IS5 [Moles/Vol]26.7 mmol/L22.0-30.0Summa Healtherum or plasma urea nitrogen measurement (mass/volume)Ordered By: Sydney Oswald on 12-07-2021 Urea nitrogen [Mass/Vol]14 mg/dL9-23Summa Healthpecific gravity Auto test strip (U) [Rel density]Ordered By: Sydney Oswald on 88-95-4764Wtajqfnh gravity (U) [Rel density]1.0101.001-1.030Summa Healthquamous epithelial cells detection in urine sediment by light microscopyOrdered By: Sydney Oswald on 35-69-4894Rwjdqignkr cells.squamous LM Ql (Urine sed)None seen [HPF]0-2FOhio Valley HospitalUrine bacteria detection by automated methodOrdered By: Sydney Oswald on 22-65-5713Jbhleone Auto Ql (U)None seenNone SeenFort Hamilton HospitalUrine clarity by refractometry automatedOrdered By: Sydney Oswlad on 17-33-2356Ulflrrs Refractometry automated (U)ClearCleOhioHealth Pickerington Methodist HospitalUrine glucose measurement by automated test strip (mass/volume)Ordered By: Sydney Oswald on 78-30-3005Fsmooeg Auto test strip (U) [Mass/Vol]Normal mg/dLNoal [facility] HospitalUrine hemoglobin detection by automated test stripOrdered By: Sydney Oswald on 30-95-9570Ecrqyybrij Auto test strip Ql (U) NegativeNegativeFort Hamilton HospitalUrine leukocyte esterase detection by automated test stripOrdered By: Sydney Oswald on 12-07-2021 Leukocyte esterase Auto test strip Ql (U)1+NegativeFort Hamilton HospitalUrobilinogen Auto test strip (U) [Mass/Vol]Ordered By: Sydney Oswald on 00-16-0370Uofkfxmnsptf (U) [Mass/Vol]Normal mg/dLNormProMedica Memorial HospitalpH Auto test strip (U)Ordered By: Sydney Oswald on 02-76-9803gC (U)7.5 [pH]5.0-9.0Fort [facility] HospitalCBC AUTO DIFFon 09-01-2021 BASO #0.0 103/ulNormal0.0-0.1The [facility]itt[facility] HospitalComment on above:Performed By: #### IRON, VITAD #### [facility] [address] [place] [address] Dr. Ryann PearceBasophils/100 WBC (Bld)0.8 %Normal0.2-2.0The [facility] Comment on above:Performed By: #### IRON, VITAD #### [facility] [address] [place] [address] Dr. Ryann Rivera #0.2 103/ulNormal0.0-0.7The [facility]-Rittman HospitalComment on above: Performed By: #### IRON, VITAD #### [facility] [address] [place] [address] Dr. Ryann Escobarosinophils/100 WBC (Bld)4.1 %Normal0.9-7.0The [facility] Comment on above:Performed By: #### IRON, VITAD #### [facility] [address] [place] [address] Dr. Ryann Escobarrythrocyte distribution width (RBC) [Ratio]12.5 %Kzkaru50.0-15.0 The [facility]-Rittman HospitalComment on above:Performed By: #### IRON, VITAD #### [facility] [address] [place] [address] Dr. Ryann PearceHematocrit (Bld) [Volume fraction]37.6 %Gvnmch84.0-48.0The [facility]-Rittman HospitalComment on above:Performed By: #### IRON, VITAD #### [facility] [address] [place] [address] Dr. Ryann PearceHemoglobin (Bld) [Mass/Vol]12.3 g/nVGbqtfd08.0-16.0The [facility]-Rittman HospitalComment on above:Performed By: #### IRON, VITAD #### [facility] [address] [address] [address] Ryann Ortez #0.02 10e3/ulNormal0.00-0.03The [facility]-Rittman HospitalComment on above:Performed By: #### IRON, VITAD #### [facility] [address] [place] [address] Dr. Ryann Ortez %0.5 %Normal0.0-0.5The [facility]-Rittman HospitalComment on above: Performed By: #### IRON, VITAD #### [facility] [address] [place] [address] Dr. Ryann Puga #1.1 103/ulCritically low1.2-3.8The [facility] Comment on above:Performed By: #### IRON, VITAD #### [facility] [address] [place] [address] Dr. Ryann Asifhocytes/100 WBC (Bld)29.0 %Ijgzda14.5-60.0The [facility]-Rittman HospitalComment on above:Performed By: #### IRON, VITAD #### [facility] [address] [place] [address] Dr. Ryann MckinneyUAL DIFF REQNONormalThe [facility]-Rittman HospitalComment on above: Performed By: #### IRON, VITAD #### [facility] [address] [place] [address] Dr. Ryann Lisa (RBC) [Entitic mass]30.5 jzSoqafu85.7-34.0The [facility]-Rittman HospitalComment on above:Performed By: #### IRON, VITAD #### [facility] [address] [place] [address] Dr. Ryann James (RBC) [Mass/Vol]32.7 g/pRLslnsl93.9-35.2The [facility] HospitalComment on above:Performed By: #### IRON, VITAD #### [facility] [address] [place] [address] Dr. Ryann James (RBC) [Entitic vol]93.3 xNYwvuia38.0-99.0The [facility]ittman HospitalComment on above:Performed By: #### IRON, VITAD #### [facility] [address] [place] [address] Dr. Ryann Gavin #0.5 103/ulNormal0.3-0.8The [facility]ittman HospitalComment on above:Performed By: #### IRON, VITAD #### [facility] [address] [place] [address] Dr. Ryann Tanocytes/100 WBC (Bld)13.1 %Critically high1.7-12.0The [facility]ittman HospitalComment on above:Performed By: #### IRON, VITAD #### [facility] [address] [place] [address] Dr. Ryann Escobar #2.0 103/ulNormal1.4-6.5The [facility]ittman HospitalComment on above:Performed By: #### IRON, VITAD #### [facility] [address] [place] [address] Dr. Ryann Simonutrophils/100 WBC (Bld)52.5 %Qgdazu47.0-75.0The [facility]ittman HospitalComment on above:Performed By: #### IRON, VITAD #### [facility] [address] [place] [address] Dr. Ryann Morrison mean volume (Bld) [Entitic vol]9.0 fLCritically low 9.5-13.5The [facility]ittman HospitalComment on above:Performed By: #### IRON, VITAD #### [facility] [address] [place] [address] Dr. Ryann PearcePLT229 103/kyMbfebb561-392Mzr [facility]ittman HospitalComment on above: Performed By: #### IRON, VITAD #### [facility] [address] [place] [address] Dr. Ryann PearceRBC4.03 106/ulCritically low4.20-5.40The [facility]ittman HospitalComment on above:Performed By: #### IRON, VITAD #### [facility] [address] [place] [address] Dr. Ryann PearceWBC3.9 103/ulCritically low4.0-11.0The [facility]ittman HospitalComment on above:Performed By: #### IRONNIKI #### [facility] [address] [place] [address] Dr. Ryann PearcePROF 14(COMP METB)on 15-90-9118Bwwpsma [Mass/Vol]3.1 g/dL Critically low3.5-5.0The [facility]ittman HospitalComment on above:Performed By: #### CMP #### [facility] [address] [place] [address] Dr. Ryann PearceAlbumin/Globulin [Mass ratio]0.9 {ratio}NormalThe [facility]-Rittman HospitalComment on above:Performed By: #### CMP #### [facility] [address] [place] [address] Dr. Ryann PazP [Catalytic activity/Vol]66 U/TTqgtkm28-918Gfj [facility]itt[facility] HospitalComment on above:Performed By: #### CMP #### [facility] [address] [place] [address] Dr. Ryann Arthur [Catalytic activity/Vol]28 U/LNormal9-52The [facility] Comment on above:Performed By: #### CMP #### [facility] [address] [place] [address] Dr. Ryann Medina gap [Moles/Vol]9.8 mmol/LNormalThe [facility]ittman HospitalComment on above:Performed By: #### CMP #### [facility] [address] [place] [address] Dr. Ryann PearceAST [Catalytic activity/Vol]22 U/NKkfbyf01-41Lwd [facility] HospitalComment on above:Performed By: #### CMP #### [facility] [address] [place] [address] Dr. Ryann PearceBilirubin [Mass/Vol]0.5 mg/dLNormal0.2-1.3The [facility] Comment on above:Performed By: #### CMP #### [facility] [address] [address] [address] Ryann PearceCalcium [Mass/Vol]8.5 mg/dLNormal8.4-10.2The [facility] Comment on above:Performed By: #### CMP #### [facility] [address] [address] [address] Ryann PearceChloride [Moles/Vol]102 mmol/PIhwfui94-396Afo [facility] Comment on above:Performed By: #### CMP #### [facility] [address] [place] [address] Dr. Ryann PearceCO2 [Moles/Vol]31.7 mmol/LCritically high22.0-30.0The [facility]ittman HospitalComment on above:Performed By: #### CMP #### [facility] [address] [place] [address] Dr. Ryann PearceCreatinine [Mass/Vol]0.91 mg/dLNormal0.52-1.04The [facility]ittman HospitalComment on above:Performed By: #### CMP #### [facility] [address] [place] [address] Dr. Garzon ChangEGFR-AF IRANIAN>60Normal>=60The [facility]ittman HospitalComment on above:Performed By: #### CMP #### [facility] [address] [place] [address] Dr. Ryann EscobarGFR-NON AF IRANIAN=60Normal>=60The [facility]ittman HospitalComment on above:Performed By: #### CMP #### [facility] [address] [place] [address] Dr. Ryann PearceGlobulin (S) [Mass/Vol]3.3 g/dLNormalThe [facility]ittman HospitalComment on above:Performed By: #### CMP #### [facility] [address] [place] [address] Dr. Ryann PearceGlucose [Mass/Vol]89 mg/fYBbjftz63-171Lrr [facility] Comment on above:Performed By: #### CMP #### [facility] [address] [place] [address] Dr. Ryann PearcePotassium [Moles/Vol]4.5 mmol/LNormal3.4-5.0The [facility] Comment on above:Performed By: #### CMP #### [facility] [address] [place] [address] Dr. Ryann PearceProtein [Mass/Vol]6.4 g/dLNormal6.1-8.2[facility] Comment on above:Performed By: #### CMP #### [facility] [address] [address] [address] Ryann PearceSodium [Moles/Vol]139 mmol/JYpaulg199-636WdjMemorial Health System Comment on above:Performed By: #### CMP #### [facility] [address] [place] [address] Dr. Ryann PearceUrea nitrogen [Mass/Vol]14.0 mg/dLNormal7.0-17.0[facility] SystemComment on above:Performed By: #### CMP #### [facility] [address] [place] [address] Dr. Ryann Hester nitrogen/Creatinine [Mass ratio]15.4 mg/mgNormalThe [facility]itt[facility] HospitalComment on above:Performed By: #### CMP #### [facility] [address] [place] [address] Dr. Ryann Pearce Vital Signs Date TimeVital SignValuePerforming WxecvvfkwSpnomsuu76-63-4953 13:31-0400Body emfiuohjiuq74.3 [degF]Patel Wylie MD Work Phone: [facility]08-12-2025 09:01-0400 Body wikjsu366.6 cmClifford Espinoza MD Work Phone: [facility] CenterEmgshrxqdl49-91-2407 09:01-0400Body mass index (BMI) [Ratio]23.73 kg/w8VdayfdClifford Espinoza MD Work Phone: [facility] CenterHnxxeshwqo27-58-4390 09:01-0400Body luunec71.68 kgClifford Espinoza MD Work Phone: [phone] [place] [address]-12-2025 09:01-0400Diastolic blood elnwvrju76 mm[Hg]Clifford Espinoza MD Work Phone: 1(268)[address] [place] [address]-12-2025 09:01-0400Heart rate90 /min Clifford Espinoza MD Work Phone: 1(291)[address] [place] [address]-12-2025 09:01-0400Systolic blood sdmublxb097 mm[Hg]Clifford Espinoza MD Work Phone: 1(606)[address] [place], [place] 7106307-22-2025 13:38-0400Body vcpvur837.6 cmClifford Espinoza MD Work Phone: 1(923)[address] [place], [place] 7106307-22-2025 13:38-0400Body mass index (BMI) [Ratio]23.73 kg/q2OqvbugClifford Espinoza MD Work Phone: 1(065)[address] [place], [place] 7106307-22-2025 13:38-0400Body .68 kgClifford Espinoza MD Work Phone: 1(792)[address] [place], [place] 7106307-22-2025 13:38-0400Diastolic blood otqzuosk31 mm[Hg]Clifford Espinoza MD Work Phone: 1(737)[address] [place], [place] 7106307-22-2025 13:38-0400Heart rate98 /min Clifford Espinoza MD Work Phone: 1(057)000-[address] [place] [address]-22-2025 13:38-0400Systolic blood loujkise947 mm[Hg]Clifford Espinoza MD Work Phone: [phone])[address]06-27-2025 15:45-0400Body temperature 97.5 [degF]Funmilayo Odell MD Work Phone: [facility]06-27-2025 15:45-0400Diastolic blood eqejweqq15 mm[Hg]Funmilayo Odell MD Work Phone: [facility]06-27-2025 15:45-0400Heart rate90 /min Funmilayo Odell MD Work Phone: [facility]06-27-2025 15:45-0302LiK6% (BldA) [Mass fraction]96 %Funmilayo Odell MD Work Phone: [facility]06-27-2025 15:45-0400Systolic blood hzcglupv522 mm[Hg]Funmilayo Odell MD Work Phone: [facility]06-03-2025 09:48-0400Body furchn818.64 cmGisella Chamorro MD Work Phone: [phone])[address]06-03-2025 09:48-0400 Body mass index (BMI) [Ratio]23.2 kg/t2EtyfppsGisella Chamorro MD Work Phone: 1(467)[address]06-03-2025 09:48-0400 Body xnjovi22.31 kgGisella Chamorro MD Work Phone: 1(536)[address] [place], [place] [address]2506-03-2025 09:48-0400 Diastolic blood fhednoho80 mm[Hg]Gisella Chamorro MD Work Phone: 1(272)[address] [place], [place] [address]452506-03-2025 09:48-0400 Heart yobj031 /Eduardo Chamorro MD Work Phone: 1(949)[address] [place], [place] 7452506-03-2025 09:48-0400 Systolic blood jtevdpnm664 mm[Hg]Gisella Chamorro MD Work Phone: 1(575)[address] [place], [place] 7452502-26-2025 13:52-0500 Body .64 cmGisella Chamorro MD Work Phone: 1(960)[address] [place], [place] 7452502-26-2025 13:52-0500 Body mass index (BMI) [Ratio]22.8 kg/w1IszyebmGisella Chamorro MD Work Phone: 1(829)[address] [place], [place] 7452502-26-2025 13:52-0500 Body tceyfy81.41 Daniel Chamorro MD Work Phone: 1(914)[address] [place], [place] 7452502-26-2025 13:52-0500 Diastolic blood wrjyrdsr22 mm[Hg]Gisella Chamorro MD Work Phone: 1(854)[address]02-26-2025 13:52-0500 Heart rate96 /Eduardo Chamorro MD Work Phone: [phone])[address]02-26-2025 13:52-0500 Systolic blood gjetkfjr496 mm[Hg]Gisella Chamorro MD Work Phone: 1(524)[address] [place], [place] 7452512-27-2024 10:10-0500 Diastolic blood hkmhydsq24 mm[Hg]Gisella Chamorro MD Work Phone: 1419)[address] [place], [place] 7452512-27-2024 10:10-0500 Heart rate97 /Eduardo Chamorro MD Work Phone: 1(419)[address] [place], [place] 7452512-27-2024 10:10-0500 SaO2% (BldA) [Mass fraction]96 %Gisella Chamorro MD Work Phone: 1(311)[address] [place], [place] 7452512-27-2024 10:10-0500 Systolic blood sivopxdt211 mm[Hg]Gisella Chamorro MD Work Phone: 1(451)[address] [place], [place] 7452512-27-2024 09:55-0500 Respiratory rate16 /Eduardo Chamorro MD Work Phone: [phone])[address] [place], [place] 7452512-27-2024 08:00-0500 Body yvvhke087.64 cmGisella Chamorro MD Work Phone: 1(575)[address] [place], [place] 7452512-27-2024 08:00-0500 Body skvejr30.5 kgGsiella Chamorro MD Work Phone: 1(606)[address] [place], [place] 7452512-05-2024 14:40-0500 Body akhykq816.1 cmGisella Chamorro MD Work Phone: 1(503)[address] [place], [place] 745[address]12-05-2024 14:40-0500 Body mass index (BMI) [Ratio]24 kg/q6IlinemwGisella Chamorro MD Work Phone: 1(966)[address] [place], [place] 7452512-05-2024 14:40-0500 Body lftibx51.4 Daniel Chamorro MD Work Phone: 1(095)[address] [place], [place] 745[address]12-05-2024 14:40-0500 Diastolic blood kcrbszto78 mm[Hg]Gisella Chamorro MD Work Phone: [facility]12-05-2024 14:40-0500 Heart orsz261 /minDsumaya Chamorro MD Work Phone: [facility]12-05-2024 14:40-0500 Systolic blood kolemzyd241 mm[Hg]Gisella Chamorro MD Work Phone: [facility]09-04-2024 14:29-0400 Body .6 cmPacc 2 Work Phone: [phone]09-04-2024 14:29-0400Body mass index (BMI) [Ratio]23.77 kg/m2Pacc 2 Work Phone: [phone]09-04-2024 14:29-0400Body temperature 97.7 [degF]Pacc 2 Work Phone: [phone]09-04-2024 14:29-0400Body xyruli82.8 kgPacc 2 Work Phone: [phone]09-04-2024 14:29-0400Diastolic blood hiktvaki05 mm[Hg]Pacc 2 Work Phone: [phone]09-04-2024 14:29-0400Heart wcqk497 /minPacc 2 Work Phone: [phone]09-04-2024 14:29-0400Respiratory rate 18 /minPacc 2 Work Phone: [phone]09-04-2024 14:29-8955IhZ4% (BldA) [Mass fraction]97 %Pacc 2 Work Phone: [phone]09-04-2024 14:29-0400Systolic blood mm[Hg]Pacc 2 Work Phone: [phone]08-30-2024 14:03-0400Body lfgarl838.6 cmDaraman Odell MD Work Phone: [phone]08-30-2024 14:03-0400Body mass index (BMI) [Ratio]23.08 kg/r5JtxlaFunmilayo Odell MD Work Phone: [phone]08-30-2024 14:03-0400Body temperature 97.5 [degF]Funmilayo Odell MD Work Phone: [phone]08-30-2024 14:03-0400Body rxjoqu88.86 kgFunmilayo Odell MD Work Phone: [phone] HospitalComment on above:per pt.02-23-2024 14:03-0400Diastolic blood boqejutn55 mm[Hg]Funmilayo Odell MD Work Phone: [phone]08-30-2024 14:03-0400Heart faar578 /minDavibennett Odell MD Work Phone: [phone]08-30-2024 14:03-8982XmM8% (BldA) [Mass fraction]94 %Funmilayo Odell MD Work Phone: [phone]08-30-2024 14:03-0400Systolic blood amgespqc078 mm[Hg]Funmilayo Odell MD Work Phone: [phone]05-10-2024 14:18-0400Body temperature 97.11 [degF]Funmilayo Odell MD Work Phone: [phone]05-10-2024 14:18-0400Diastolic blood ozbgkzfk01 mm[Hg]Funmilayo Odell MD Work Phone: [phone]05-10-2024 14:18-0400Heart rate85 /min Funmilayo Odell MD Work Phone: [phone]05-10-2024 14:18-7799GgE8% (BldA) [Mass fraction]98 %Funmilayo Odell MD Work Phone: [phone]05-10-2024 14:18-0400Systolic blood lflwiacz074 mm[Hg]Funmilayo Odell MD Work Phone: [phone]06-14-2023 10:00-0400Body joubmk232.1 [facility] Other [employer] Other 06-14-2023 10:00-0400Body mass index (BMI) [Ratio] 24.96 kg/s3Rljlwprtravis Taylor Other [facility] [employer] Other 06-14-2023 10:00-0400Body ptymzl36.04 kgColljailene Taylor Other [facility] [employer] Other 05-04-2023 13:59-0400Diastolic blood sdonkvzs74 mm[Hg] Funmilayo Odell MD Work Phone: [facility]05-04-2023 13:59-0400Heart rate98 /min Funmilayo Odell MD Work Phone: [facility]05-04-2023 13:59-5269BpL8% (BldA) [Mass fraction]96 %Funmilayo Odell MD Work Phone: [facility]05-04-2023 13:59-0400Systolic blood zygyujam989 mm[Hg]Funmilayo Odell MD Work Phone: [facility]03-29-2023 11:31-0400Diastolic blood jzcpecfq04 mm[Hg]MD Gisella Chamorro Work Phone: 1([phone])508-[address] [place], [place] 5231303-29-2023 11:31-0400 Heart rate94 /minMD Gisella Chamorro Work Phone: [facility]03-29-2023 11:31-0400 Respiratory rate18 /minMD Gisella Chamorro Work Phone: [facility]03-29-2023 11:31-0400 SaO2% (BldA) [Mass fraction]98 %MD Gisella Chamorro Work Phone: [facility]03-29-2023 11:31-0400 Systolic blood ptklxiuw869 mm[Hg]MD Gisella Chamorro Work Phone: 1(679)093-[address] [place], [place] 5231303-29-2023 10:09-0400 Body ieplsp464.64 cmMD Gisella Chamorro Work Phone: 1(297)275-[address] [place], [place] 5231303-29-2023 10:09-0400 Body .7 [degF]MD Gisella Chamorro Work Phone: 1(980)809-[address] [place], [place] 5231303-29-2023 10:09-0400 Body rlixvr62.41 kgMD Gisella Chamorro Work Phone: [phone])975-[address] [place], [place] 5231307-13-2022 14:45-0400 Body .1 cmRobert [employer] Other [employer] Other 07-13-2022 14:45-0400Body mass index (BMI) [Ratio] 22.96 kg/d4BrkpiaGlySure Other [employer] Other 07-13-2022 14:45-0400Body .6 kgRobert [employer] Other [employer] Other 06-27-2022 12:31-0400Diastolic blood llvwepea62 mm[Hg] MD Gisella Chamroro Work Phone: [phone])[address]06-27-2022 12:31-0400 Heart rate78 /minMD Gisella Thomsonrosa Work Phone: [phone] [place], [place] 5231306-27-2022 12:31-0400 Respiratory rate16 /minMD Gisella Chamorro Work Phone: 1(318)068-[address] [place], [place] 5231306-27-2022 12:31-0400 SaO2% (BldA) [Mass fraction]99 %MD Gisella Chamorro Work Phone: 1(180)331-[address] [place], [place] 5231306-27-2022 12:31-0400 Systolic blood czhvbqet051 mm[Hg]MD Gisella Chamorro Work Phone: 1([phone])[address]06-27-2022 09:35-0400 Body akdrvhsfgkw36.8 [degF]MD Gisella Chamorro Work Phone: 1(213)243-[address] [place], [place] 5231306-27-2022 09:35-0400 Inhaled oxygen flow rate6 L/minMD Gisella Chamorro Work Phone: 1(802)033-[address] [place], [place] 5231306-27-2022 08:23-0400 Body .64 cmMD Gisella Chamorro Work Phone: 1(197)201-[address] [place], [place] 5231306-27-2022 08:23-0400 Body mass index (BMI) [Ratio]23.8 kg/m2MD Gisella Hoy Work Phone: 1(271)926-[address] [place], [place] 5231306-27-2022 08:23-0400 Body uosblk57 kgMD Gisella Chamorro Work Phone: [phone])[address]05-18-2022 10:45-0400 Body yrwmhe572.1 cmRobert Gaston II Other [employer] Other 05-18-2022 10:45-0400Body mass index (BMI) [Ratio] 23.13 kg/r3Iferdz Darek II Other [employer] Other 05-18-2022 10:45-0400Body rizlaj47.05 kgRobert Gaston II Other [employer] Other 10-26-2021 11:45-0400Body .1 cmCameron Ditty Other [employer] Other 10-26-2021 11:45-0400Body mass index (BMI) [Ratio] 23.13 kg/r6Jfawrpp Ditty Other [employer] Other 10-26-2021 11:45-0400Body pbfhqi56.05 kgCameron Ditty Other [employer] Other 10-26-2021 11:45-0400Diastolic blood sxlosutz030 mm[Hg]Manoj Forbes Other [facility] [employer] Other 10-26-2021 11:45-0400Systolic blood gntprmob788 mm[Hg] Manoj Forbes Other [facility] [employer] Other Encounters Encounter DateEncounter TypeCare ProviderFacilityStart: 03-06-2025 End: 51-56-1096Kiuubq outpatient new 45 minutesPatel Wylie MD Work Phone: [facility] HospitalComment on above: Asymmetrical sensorineural hearing loss (Primary Dx); Left acoustic neuroma (Multi)Start: 03-06-2025 End: 84-91-1890ytwbgnddwkYNHDMG T [facility] AmbulatoryStart: 02-13-2025 End: 37-14-4394Oblykdxbrv hospital visit by physicianRad External FilmEF RAD EXTERNAL FILM VIRTUALComment on above:ArrivedStart: 02-13-2025 End: 58-42-4316tqdozgdouuLPTWUJ T OhioHealthtart: 02-12-2025 End: 82-82-6467Epqoju Adilene Barkley DO Work Phone: [facility] EyeStart: 02-12-2025 End: 03-66-8764Kieqjkshailesh Barkley DO Work Phone: [facility] EyeStart: 02-12-2025 End: 75-06-0752iqiwwzmweaJZKETOUH D ZAHLERNot AvailableStart: 02-04-2025 End: 11-18-6435Bqicfdlam Espinoza MD Work Phone: [facility]oms [facility]aryngologyStart: 02-04-2025 End: 68-66-1440Mziovklam Espinoza MD Work Phone: noMS [facility]olaryngologyStart: 02-04-2025 End: 57-51-6833Dgbgnc outpatient visit 15 minutesClifford Espinoza MD Work Phone: NOBU [facility] OtolaryngologyComment on above:Vestibular schwannoma (HCC) (Primary Dx)Start: 02-04-2025 End: 20-12-2503hxbhudxwftGKZRGA H TIMMISNot AvailableStart: 01-29-2025 End: 04-80-6543Yjnzkidsw Result EncounterClifford Espinoza MD Work Phone: noms External Department UnsolicitedStart: 01-29-2025 End: 74-02-8662Fjcxnfxod Result EncounterStaceyry Sharona Espinoza MD Work Phone: noms External Department UnsolicitedStart: 01-14-2025 End: 15-87-4468Hjlfqv Newton Espinoza MD Work Phone: NOL[facility] CI ENTStart: 01-14-2025 End: 33-88-8026Nwgrmr Newton Espinoza MD Work Phone: noms CI ENTStart: 01-14-2025 End: 53-53-8864Wmtloz outpatient new 45 minutesClifford Espinoza MD Work Phone: noms CI ENTComment on above: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)Start: 01-14-2025 End: 23-19-1591xivrangjxdNDZLCH H TIMMISNot AvailableStart: 01-08-2025 End: 51-27-0821Qiclkj Brittani Schroeder [facility] Work Phone: noms CI AUDStart: 01-08-2025 End: 93-89-8620Vvxkwf Brittani Schroeder [facility] Work Phone: noms CI AUDStart: 01-08-2025 End: 30-93-9961Bdoegbmn SupportNora Schroeder [facility] Work Phone: NOFF CI AUDComment on above:Asymmetrical sensorineural hearing loss (Primary Dx); Tinnitus, left; Impaired auditory discrimination, leftStart: 12-20-2024 End: 80-02-0758Xhrhttc encounter procedureFunmilayo Odell MD Work Phone: Colorectal SurgeryComment on above:Rectal prolapse (Primary Dx); Pelvic floor dysfunctionStart: 12-20-2024 End: 25-61-2156dgamneinghYVKUY ROSENFacility:[facility] Hospitaltart: 11-26-2024 End: 89-58-0179igdqbkaouhCibsxns M Hoy MD Work Phone: [facility] Work Phone: Start: 11-26-2024 End: 52-30-4911Jrewfqr encounter procedureGisella Chamorro MD Work Phone: [facility] Work Phone: Start: 10-22-2024 End: 81-72-8508Sxnmear encounter procedureGisella Chamorro MD Work Phone: [facility] [address] Work Phone: Start: 10-22-2024 End: 08-87-6149zmexjhdrpxBcriolh M Hoy MD Work Phone: [facility] Work Phone: Start: 08-21-2024 End: 08-85-7215jeyjtuzyggFlvnikn M Hoy MD Work Phone: [facility] Work Phone: Start: 08-21-2024 End: 73-35-9927Cnawdym encounter procedureGisella Chamorro MD Work Phone: [facility] Work Phone: Start: 07-22-2024 End: 04-08-4163Jcsjddl encounter Russell Chamorro MD Work Phone: [facility] [address] Work Phone: Start: 07-22-2024 End: 89-56-7134uxeaiiwuagRjhmnsz M Hoy MD Work Phone: [facility] Work Phone: Start: 04-31-4381Lon-patient / Non-visitGisella Chamorro MD Work Phone: [facility] Work Phone: Start: 49-97-5672Yki-patient / Non-visitGisella Chamorro MD Work Phone: [facility] Work Phone: Start: 06-21-2024 End: 33-45-8240Kytnldrgv to same day surgery centerGisella Chamorro MD Work Phone: [facility] Work Phone: Start: 06-21-2024 End: 44-25-2030lplavrfaqaOchmdhp M HoyFacility:[facility] Start: 05-30-2024 End: 75-89-4370Slsdcqu encounter procedureGisella Chamorro MD Work Phone: [facility] Work Phone: Start: 04-01-2024 End: 52-91-3350Vjtgyti encounter procedureMD Gisella Chamorro Work Phone: [facility] [address] [place] Work Phone: Start: 04-01-2024 End: 04-41-3426ngpjtpjvliNY Douglas M Hoy Work Phone: [facility] Work Phone: Start: 03-19-2024 End: [id number] and management of inpatientDAVID ROSENFacility:[facility]tart: 02-28-2024 End: [id number] to [facility] Work Phone: pre AnesthesiaStart: 02-28-2024 End: [id number] [facility]For[facility] Work Phone: Pre AnesthesiaComment on above:Preoperative examination (Primary Dx); BRBPR (bright red blood per rectum); Rectal prolapse; Tachycardia; Hypothyroidism, unspecified type; Osteoarthritis of both hands, unspecified osteoarthritis type; Hyperlipidemia, unspecified hyperlipidemia type; Neuropathy of both feet; Irritable bowel syndrome with diarrhea; Urinary tract infection without hematuria, site unspecifiedStart: 02-28-2024 End: [id number] examination [place] [address] Work Phone: [facility] Work Phone: Start: 02-28-2024 End: 06-73-5364uvourmobjkLLDAFFQ ANGELOFacility:[facility] HospitalStart: 02-28-2024 Encounter for other preprocedural examinationDARAMAN ODELLBlue Mountain Hospitaltart: 02-23-2024 End: 13-71-9689mgwpjssilmWDSLW ROSENFacility:[facility] Hospitaltart: 02-23-2024 End: 99-39-0731Eevdwsy encounter procedureFunmilayo Odell MD Work Phone: Colorectal SurgeryComment on above:Hemorrhoids, unspecified hemorrhoid type (Primary Dx)Start: 11-03-2023 End: 43-19-7698Xwphqmf encounter procedureFunmilayo Odell MD Work Phone: Colorectal SurgeryComment on above:BRBPR (bright red blood per rectum) (Primary Dx); Hemorrhoids, unspecified hemorrhoid type; Pelvic floor dysfunctionStart: 89-60-6154Pcjekevkd encounterFunmilayo Odell MD Work Phone: Colorectal SurgeryComment on above:Received Outside Medical Records; AppointmentStart: 04-10-2023 End: 70-95-0711pooamljcaiWfqhtoe Ditty Other [place] [employer] Other Start: 29-53-3996Fplzsrbkf encounterCameron DittyFPG GastroenterologyStart: 01-04-2023 End: 49-33-9276wcvlukadwoQqvvmuy Brandon Other [facility] [employer] Other Start: 13-13-7547Tadxco outpatient visit 15 minutes Ivette CalveyFPG [facility] OrthopedicsStart: 12-23-2022 End: 46-22-4457bnkwccuewpFF Gisella M Hoy Work Phone: [facility] Work Phone: Start: 12-23-2022 End: 91-06-1729Mlborml encounter procedureMD Gisella Chamorro Work Phone: [facility] Start: 59-85-6559Jqjlqy outpatient new 30 minutesColleen YayoG [facility] OrthopedicsStart: 12-07-2022 End: 55-53-7831aiyqoyzuugNG Gisella River Horosa Work Phone: [facility] Work Phone: Start: 12-07-2022 End: 84-26-4553Hapnvgg encounter procedureMD Gisella Chamorro Work Phone: [facility] Start: 10-27-2022 End: 17-58-5621Qezrmtb encounter procedureFunmilayo Odell MD Work Phone: Colorectal SurgeryComment on above:Hemorrhoids, unspecified hemorrhoid type (Primary Dx)Start: 09-22-2022 End: 53-48-6219afnmnkdsfsKysdadt Difedericoy Other [facility] [employer] Other Start: 70-63-7560Izlbsfsjm encounterCameron DittyFPG GastroenterologyStart: 09-21-2022 End: 42-25-3789Vdpsjjjlx to same day surgery centerMD Gisella Hoy Work Phone: [facility]-Digestive [facility] Work Phone: Start: 09-21-2022 End: 19-05-6367owbeznryvbPS Gisella M Hoy Work Phone: [facility] Work Phone: Start: 08-23-2022 End: 82-12-8719fbmxdhduecAS DOCTOR MISCFacility:P5Qzwmp: 08-04-2022 End: 97-89-0152pihxgfdtobZvoywww Ditty Other [employer] Other Start: 63-25-8592Lqbxtqgfl encounterCameron DittyFPG GastroenterologyStart: 07-06-2022 End: 97-51-7210tcmahugohaIY GISELLA HOY .Facility:D8Jwtsh: 06-06-2022 End: 81-76-7447waliueumbvIK GISELLA HOY .Facility:V6Pokvc: 05-11-2022 End: 29-44-7564uaiseyvwblIZ GISELLA HOY .Facility:O5Nzxte: 04-04-2022 End: 12-36-2143pvlqzdlepwWyfzakc Ditty Other [place] [employer] Other Start: 48-21-6734Jhyzkyvws encounterCameron DittyFPG GastroenterologyStart: 03-16-2022 End: 06-96-1591Gntlsvm encounter procedureMD Gisella Hoy Work Phone: [facility] Start: 02-23-2022 End: 46-27-3729Dngyrnyuew RecurringMD Gisella Hoy Work Phone: [facility]-Physical Therapy [place] CreekStart: 02-21-2022 End: 67-92-0394onxhkdveqoPG LITA HANSENFacility:T4Nsxkl: 02-02-2022(Post-Op) Post-OpRobert Gaston IIFPG [facility] OrthopedicsStart: 02-02-2022 End: 67-62-9236invfqmmkvpPdkwvt Gaston II Other [employer] Other Start: 02-02-2022 End: 70-16-6602Kblvbnr encounter procedureMD Gisella Hoy Work Phone: [facility] Start: 01-05-2022(Post-Op) Post-OpRobert Gaston IIFPG [facility] Start: 01-05-2022 End: 72-62-2984aizmrjqsmpDgumis Darek II Other [employer] Other Start: 12-20-2021 End: 75-36-5470Aqicllofw to same day surgery centerMD Gisella Hoy Work Phone: [facility] Main CampusStart: 12-17-2021 End: 36-24-3033Kchxhhi encounter procedureMD Gisella Hoy Work Phone: [facility]-Bkd-Umfjdahn Testing Start: 12-10-2021(Prolonged) Prolonged ServicesRobert Darek IIFPG [facility] Orth[facility]icsStart: 12-10-2021 End: 98-33-3581peokqsyieiJwildk Gaston II Other [employer] Other Start: 46-88-6949Jqawrbffa encounterRobert Darek II FPG [facility]icsStart: 12-07-2021 End: 81-28-8381Qindsnu encounter procedureMD Gisella Hoy Work Phone: [facility]-Pre-Surgical Testing Start: 12-01-2021 End: 00-61-1266cddttlyrspDitqka Darek II Other [employer] Other Start: 31-53-3327Ftlrzrk encounter procedureRobert Gaston IIFPG [facility] Orth[facility]icsStart: 41-22-7720Nzcvdrwjm for preprocedural cardiovascular examinationROBERT CARLISLEThe Johnson City HospitalStart: 11-12-2021 End: 73-98-6910mayorejukjFHEHRA CARLISLEFacility:N2Wimrq: 11-12-2021 End: 71-01-5332Fnomygafk for preprocedural cardiovascular examinationROBERT CARLISLEFacility:W8Orzju: 11-10-2021 End: 84-45-3823qodbecashiBpwkba Gaston II Other [employer] Other Start: 88-46-6393Toemxn outpatient visit 40 minutes Sydney MARLEY [facility]icsStart: 09-01-2021 End: 62-93-7809gvtcselyphEF DOCTOR MISCFacility:D8Vcljz: 08-13-2021 End: 10-48-2778gdhtdasjvmPuwulg Gaston II Other [employer] Other Start: 59-10-4540Odokiz outpatient new 45 minutes Sydney MARLEY [facility] OrthopedicsStart: 51-75-5193Vzdbpxi encounter procedureCameron DittyFPG Gastroenterology Procedures DateProcedureProcedure DetailPerforming ClinicianStart: 60-82-3033Jvndj Interpretation of outside studyPatel Wylie MD Work Phone: Start: 02-12-2025 End: 32-94-2674Mshcy medical xm&eval compre new pt 1/> vstLeft posterior capsular opacificationJonathai Barkley DO Work Phone: comment on above:Left posterior capsular opacification (Primary Dx)Start: 91-55-4578YWO HEAD/BRAIN WO/W Paul Espinoza MD Work Phone: Start: 71-49-7607LAA Radha Espinoza MD Work Phone: Start: 09-24-2142HVTENZFB FUNCTION TESTSDecharlotte Schroeder CCC-A Work Phone: start: 00-74-5781Uepalyzw fiberoptic sigmoidoscopy Gisella Chamorro MD Work Phone: Start: 71-51-6231Ebj routine ecg w/least 12 lds i&r onlyZaida David PA-C Work Phone: Start: 50-13-1027L-ray of right kneeMD Gisella Hoy Work Phone: Start: 53-51-7724Clvbn X-ray of left handMD Gisella Hoy Work Phone: Start: 89-66-6559Mgdupjgk fiberoptic sigmoidoscopyMD Gisella Hoy Work Phone: Start: 28-40-2057Zxbsm X-ray of right femurMD Gisella Hoy Work Phone: Start: 37-93-0210Pyjtg X-ray of right tibia and right fibulaMD Gisella Hoy Work Phone: Start: 27-75-6112W-ray of right kneeMD Gisella Hoy Work Phone: Start: 50-26-5435S-ray of right kneeMD Gisella Hoy Work Phone: Start: 30-94-0792Byega replacement of right knee joint MD Gisella Chamorro Work Phone: Start: 03-17-0492H-ray of right kneeMD Gisella Hoy Work Phone: History of operative procedure on Cuauhtemoc Forbes Other Plan of Treatment DateCare ActivityDetailAuthorStart: 80-05-0824Gnumhflp ScreeningDiabetes ScreeningBroxton ClinicStart: 03-16-2026 End: 16-50-0772Ohttzkh encounter ygklkaqla95/21/2026 9:45 AM EDT Office Visit [facility] [address] [place] [address] Patel Wylie MD [address] [place] [address] [facility]App[facility]ontart: 03-06-2026 End: 66-38-9884FI Internal auditory canal WO and W contrast IVMR IAC w and wo IV contrast Imaging Routine Left acoustic neuroma (Multi) Expected: 03/06/2026 (Approximate), Expires: 06/04/2026[facility] Service Area Work Phone: Comment on above:Expected: 03/06/2026 (Approximate), Expires: 06/04/2026Start: 03-06-2025 End: 56-01-4099Cxshgxi encounter fdrzyxdkr51/11/2025 1:45 PM EDT Office Visit [facility] [address] [facility] [address] [place] [phone] Patel Wylie MD [address] [facility] [address] [place] [address] [facility]: 72-09-5307TLPYI-19 Vaccine ( season)COVID-19 Vaccine ( season)[facility]Start: 60-56-2291Rjljmasex vaccination [facility]: 02-12-2025 End: 51-06-5624Fgfarec encounter procedureNOMS [facility] EyeComment on above:ArrivedStart: 02-04-2025 End: 60-92-3446Vwymhip encounter procedureNOMS [place] OtolaryngologyComment on above:ArrivedStart: 01-14-2025 End: 29-44-4962Xtaqofa encounter procedureNOMS CI ENTComment on above:Arrived Start: 01-08-2025 End: 50-46-1073Pmdvjurm Wjleqri8901/08/2025 1:00 PM EDT Clinical Support [facility] [address] [place] [id number] Nora Schroeder, [facility] [address] [facility] [place] [address] ArrivedNOMS CI AUDComment on above:ArrivedStart: 11-26-2024 [facility]Western [facility] Hospital Work Phone: Start: 10-90-3634Dxctixt Directive DiscussionAdvance Directive DiscussionFort Hamilton Hospitaltart: 72-23-9556RtdfseerrSumma Healthtart: 03-19-2024 End: 73-94-6121Rtmtgqorr to same day surgery fpzyfz7803/19/2024 7:30 AM EDT - 03/19/2024 8:40 AM EDT Surgery [facility] [address] [place], [place] [id number] [place] [address] [facility] [address] [place] [address] EXCISION RECTAL PROCIDENTIA W/ ANASTOMOSISBeaver Valley Hospital SurgeryComment on above:EXCISION RECTAL PROCIDENTIA W/ ANASTOMOSISStart: 03-19-2024 End: 51-27-4028Frasyffjpzi flx dx w/collj spec when pfrmdCOLONOSCOPY BRBPR (bright red blood per rectum) Rectal prolapse 03/19/2024 7:30 AM EDTAV ORStart: 03-19-2024 End: 75-62-2388Uqo rct procidentia w/anast perineal approachEXCISION RECTAL PROCIDENTIA W/ ANASTOMOSIS BRBPR (bright red blood per rectum) Rectal prolapse 03/19/2024 7:30 AM EDTAV ORStart: 21-94-1111Jlhvtbcrvv hospital visit by arqljjyoa31/24/2024 7:30 AM EDT Hospital Encounter [facility] [address] [place] [address] [place] [address] [facility] [address] [place] [address] BRBPR (bright red blood per rectum) [K62.5][facility] SurgeryComment on above:BRBPR (bright red blood per rectum) [K62.5]Start: 00-34-6067XSBTZ-19 Vaccine ( season)COVID-19 Vaccine ( season)[facility]St[facility]: 14-17-9065Mhfqf-19 Vaccine ( season)Covid-19 Vaccine ( season)[facility]: 11-00-6316Fhpdb-19 Vaccine ( season)Covid-19 Vaccine ()[facility]: 02-25-2024 Influenza vaccinationFort Hamilton Hospitaltart: 18-38-5113Cwxuiqt Directive DiscussionAdvance Directive DiscussionFort Hamilton Hospitaltart: 06-26-2023 Behavioral Health ScreeningBehavioral Health ScreeningFort Hamilton Hospitaltart: 70-97-0216Exvfh-19 Vaccine ( season)Covid-19 Vaccine ( season)[facility]: 77-53-4952Liedqyipg vaccinationINFLUENZA (Season Ended)[facility]: 97-29-3635IfqntbjcgSumma Healthtart: 85-81-9582TWTLXWL DIRECTIVE DISCUSSIONADVANCE DIRECTIVE DISCUSSIONFort Hamilton Hospitaltart: 01-22-6530UOMNEAQJGW ASSESSMENTDEPRESSION ASSESSMENTFort Hamilton Hospitaltart: 71-93-0105LpxnyzxvrMemorial Health System [facility] Work Phone: Start: 46-17-6142EpxpupfjbFort [facility] Hospital Ctr Work Phone: Start: 90-41-1981CBKTT-19 VACCINE (4 - Booster for Moderna series)COVID-19 VACCINE (4 - Booster for Moderna series)[facility] Start: 03-69-7438VSO High Risk: (Elderly (60+) or Population) (1 - 1- dose 75+ series)RSV High Risk: (Elderly (60+) or Population) (1 - 1- dose 75+ series)[facility]Start: 23-98-7934NAD Vaccine (1 - 1-dose 75+ series)RSV Vaccine (1 - 1-dose 75+ series)[facility]: 40-06-8313PHMX DENSITYBONE DENSITYFort Hamilton Hospitaltart: 08-26-2031FHWLOYODQDYK: 65+ (1 - PCV)PNEUMOCOCCAL: 65+ (1 - PCV)[facility]: 2010 Screening for osteoporosisFort Hamilton Hospitaltart: 01-01-2011Medicare Annual Wellness VisitMedicare Annual Wellness VisitFort Hamilton Hospitaltart: 07-01-9720NHW Vaccine (1 - 1-dose 60+ series)RSV Vaccine (1 - 1-dose 60+ series)[facility]: 87-74-3507Qojvzyrddgug vaccinationPneumococcal Vaccine (1 of 1 - PCV)[facility]: 58-42-8772CZBQZECH VACCINE (1 of 2) SHINGRIX VACCINE (1 of 2)[facility]: 86-96-9585Dkqqvo Vaccines (1 of 2)Zoster Vaccines (1 of 2)[facility]: 1990 DIABETES SCREENDIABETES SCREENFort Hamilton Hospitaltart: 57-79-9313Miarjpyx ScreeningDiabetes ScreeningFort Hamilton Hospitaltart: 21-67-6096BLfB/Tdap/Td Vaccines (1 - Tdap)DTaP/Tdap/Td Vaccines (1 - Tdap)[facility]St[facility]: 31-78-7212Obizs microalbumin profileFort Hamilton Hospitaltart: 14-99-9375Hhucbo PCP Team Chronic Disease VisitAnnual PCP Team Chronic Disease VisitFort Hamilton Hospitaltart: 01-68-6268Qaebvzc ScreeningAnxiety Screening [facility]rt: 25-78-2864Vfflnuyvpp ScreeningDepression Screening [facility]: 52-84-6080QBCMREYXJ C SCREENINGHEPATITIS C SCREENING [facility]: 82-91-4640Ufcfkxbbr C screeningHepatitis C Screening [facility] Hospitalrt: 83-19-8849Evlzj panelLipid PanelChildren's Hospital of ColumbusStcamp douglas: 01-15-1946Medicare Annual Wellness VisitMedicare Annual Wellness Visit (AWV)[facility]: 86-56-3480Kasueis stimulating hormone measurementTSWooster Community Hospital: 28-98-5757Igoiif Adult PhysicalYearly Adult PhysicalUnMarion HospitalECG COMPLETEECG COMPLETE ECG Routine Preoperative examination Tachycardia 02/28/2024 1:49 PM EDTCAultman [facility]ville [facility] Work Phone: Patient EducationMemorial Health System [facility] Work Phone: Patient referralWestern Reserve Hospital Work Phone: [facility] Immunizations Immunization DateImmunizationNotesCare AolyoqslCxtcrwhe64-20-5872qxipgztgw virus vaccine, unspecified formulationFunmilayo Odell MD Work Phone: [facility] HospitalOgkqxv96-34-2956OODDJ-95 mRNA-1273 (Moderna) MD Gisella Chamorro Work Phone: [facility]03-09-2021COVID-19 mRNA-1273 (Moderna)MD Gisella Chamorro Work Phone: [facility]02-08-2021COVID-19 mRNA-1273 (Moderna)MD Gisella Chamorro Work Phone: [facility]10-08-2020influenza virus vaccine, unspecified formulationFunmilayo Odell MD Work Phone: [facility] Payers DatePayer CategoryPayerPolicy [id number] supplemental policy (as second payer)[employer] [id number]-yco [id number] Health Insurance [id number] 2011Medicare [id number] [id number] 2..[id number] 2.16.840.8.183201.1656-15-1946 [id number] 2.840.1.025276.3.57[id number] 2.840.1.233169.3.57[id number] 2.840.1.745211.3.57[id number] 2.840.1.254368.3.579.2.62691-09-3445Faxzmxq7142833 2.840.1.736158.3.57[id number] 2.840.1.075384.3.579.2.75080-61-8092Lcedqlb1322533 2.840.1.130615.3.57[id number] 2.840.1.553467.3.57[id number] 2.840.1.490138.3.579.[id number] 2.840.1.229388.3.57[id number] 2.840.1.279260.3.57[id number] 2.840.1.151932.3.57[id number] 2.16.840.1.5602[id number] 2.16.840.1.136531.3.579.2.531 [id number] 2.16.840.1.5[id number] 2..840.1.561[id number] 2.16.840.1.620129.3.579.2.531 Social History DateTypeDetailFacilityUnknown if ever smokedManchester [employer].la Other Start: 10-27-2022 End: 49-82-8265Mfx [facility]igned [facility] [employer] Other Start: 12-20-2021 End: 48-84-2831Krnxnjr smoking status NHISNever smoked tobacco (finding) [facility]: 68-37-9890Cnv Assigned At BirthF[facility]: 10-27-2022 End: 83-36-4766Jwfdeaw use and exposureSmokeless tobacco non-userFort Hamilton Hospitaltart: 10-27-2022 End: 48-29-0059Nvslyqq intakeLifetime non-drinker (finding)[facility] Start: 41-16-7855Pcz Assigned At BirthNot on fileFort Hamilton Hospitaltart: 10-27-2022 End: 28-89-3645Gwlnybu of Social functionFort Hamilton Hospitaltart: 05-20-2022 National Score (1-100), lower number is lower irnb13YesoqsskprChildren's Hospital of ColumbusStart: 80-26-7620Ucwwty identityIdentifies as female gender (finding) [facility]: 39-87-9041Erwvye orientationHeterosexual (finding) [facility]: 74-10-1921EgeOtebzio sex unknown (finding)[facility]: 08-21-2024 End: 22-44-0787OycSdwxqc (finding)[facility] HospitalTobacomanche county memorial [facility] smoking status NHISTobacco smoking consumption unknownBoone Hospital CenterStart: 01-14-2025 End: 45-72-5950Elgdeapji beverage intakeEx-drinker (finding)[facility] Start: 52-91-3877Ntwxyae CommentOccBoone Hospital Center Medical Equipment Procedure CodeEquipment CodeEquipment Original TextEquipment IdentifierDates Arthroplasty, knee, total, minimally invasiveOrthopaedic cement, non-medicated ()[id number] FDAStart: 88-37-0056Gemcsweimdji, knee, total, minimally invasiveUncoated knee femur prosthesis ()[id number] FDAStart: 13-90-9828Ilqhsftsoxpo, knee, total, minimally invasiveTibial insert()[id number] FDAStart: 58-17-7378Bgwibgjhruol, knee, total, minimally invasiveUncoated knee tibia prosthesis, metallic()[id number] FDAStart: 74-50-3110Oqtbkhxlanof, knee, total, minimally invasivePolyethylene patella prosthesis()[id number] FDAStart: 12-20-2021 Goals DatePatient GoalDesired Activity/State Functional Status PeahSnyxnrfggxYnyheoFfxtlylm53-77-1772Kmshqdo Health Questionnaire 2 item (PHQ- 2) [Reported][facility] Work Phone: Clinical Notes 04-20-2021 to 03-06-2025 Note Date & WwjqBoccMmthsflk16-79-2100 History of Present illness Narrative* Patel Wylie MD - 03/06/2025 1:45 PM EDT Billie Yeboah is a 79 y.o. female is referred by Dr. Espinoza for evaluation and management of aleft IAC lesion. Patient reports occasional imbalance and tinnitus. She states drop in hearing in the left ear with poor clarity. This drop appears to have happened after silvestre the flu. Her and daughter accompanied her today. The patient's current medications, active allergies and list of medical problems were reviewed in the EHR and confirmed electronically there are as follows; Allergies: Allergies[1] Current list of medications: Current Medications[2] Problem list: Problem List[3] Medical history: Medical History[4] Surgical history: Surgical History[5] Family history: Family History[6] Social history: Social History[7] Physical Examination: CONSTITUTIONAL: No acute distress VOICE: No hoarseness or other abnormality RESPIRATION: Breathing comfortably, no stridor CV: No clubbing/cyanosis/edema in hands EYES: EOM intact, sclera clear NEURO: Alert and oriented times 3, Cranial nerves II-XII grossly intact and symmetric bilaterally HEAD AND FACE: Symmetric facial features, no masses or lesions RIGHT EAR: Normal external ear and post auricular area, no visible lesions, external auditory canalpatent, tympanic membrane intact, no retraction, no signs of mass, effusion, or infection within the middle ear LEFT EAR: Normal external ear and post auricular area, no visible lesions, external auditory canal patent, tympanic membrane intact, no retraction, no signs of mass, effusion, or infection within themiddle ear NOSE: External appearance normal without an obvious deformity. PHARYNGEAL DALEY: Normal lining without obvious masses. NECK/LYMPH: No LAD, no thyroid masses, trachea midline SKIN: Neck and facial skin is without scar or injury PSYCH: Alert and oriented with appropriate mood and affect Diagnostic testing: Audiometry: Audiometry testing done reveals: On the right: normal hearing sensitivity sloping to mild to moderately severe high frequency sensorineural hearing loss. Speech discrimination is 100%. On the left: moderate sloping to moderately severe asymmetric sensorineural hearing loss. Speech discrimination is 44% at 75 db presentation level and 24% at 80 db presentation level. There is a positive rollover test which is consistent with retrocochlear pathology. 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 I personally reviewed the available patient's external record and independently reviewed their audiometric testing and the radiographic imaging through the appropriate viewing software as detailed inmy note and agree with the detailed report. Impression: left CPA lesion asymmetric Sensorineural hearing loss Recommendation: Follow -up with MRI in 1 year The patient's condition was reviewed and explained. The treatment options and alternatives were discussed in length and those included observation, radiotherapy and microsurgery. Given the patient's age and hearing, and the tumor characteristics, I recommended watchful waiting with repeat MRI in 1 year. TAll questions were answered to the patient's satisfaction. I discussed with the patient the complexity of my medical decision making including the treatment and testing rational, indications of their elective procedure and possible adverse effects and/or complications. Based on the provided documentation and my professional assessment of this patient's newly diagnosed conditions, the complexity of evaluation and treatment is moderate. This note was created using speech recognition electrification adviser software. Despite proofreading, several typographical errors might be present that might affect the meaning of the content. Please call with any questions. By signing my name below, I, Kiran Martinez attest that this documentation has been preparedunder the direction and in the presence of Patel Wylie MD Patient Education: Vestibular Schwannoma Vestibular schwannoma, also called acoustic neuroma, is a benign tumor involving the hearing and balance nerve at the base of the brain. It occurs in is about 1 per 100,000 people per year. Acoustic neuromas do not spread throughout the body, but can cause significant disability, including hearing loss, dizziness, facial numbness, and, rarely in this era, even , by local growth into nearby important brain structures. Early symptoms of an acoustic neuroma include hearing loss, distorted sound perception, tinnitus, dizziness, and disequilibrium. Later symptoms may include headache, unsteadiness, facial pain, tingling, or numbness, facial tics or weakness, double vision, and difficulty in swallowing or talking. There are a number of tests that can be utilized to diagnose acoustic neuromas, the utility of which should be based upon a complete history and physical by an experienced physician. The definitive diagnostic test is an MRI with gadolinium enhancement. However, this test should only be obtained following appropriate clinical evaluation, and hearing, and balance testing where indicated. Management options include observation with serial MRIs, partial or total surgical removal, and radiation therapy. The treatment is tailored to the individual, and depends upon the patient's symptoms, hearing level, health status, age, and the growth rate of the tumor, and the wishes of the patient. Surgery for acoustic neuromas requiring intervention will involve one of three basic approaches: (1) through the latter day or middle fossa approach, (2) through the ear or translabyrinthine, and (3) through the back of the head or retrosigmoid approach. The approach used depends upon the size and location of the tumor, the status of the preoperative hearing, and the experience and preference of thesurgical team. The optimal treatment goal is removal of the tumor while maintaining existing hearing and facial function. In many cases, hearing in the affected ear cannot be preserved. Since acoustic neuromas are usually slow growing, partial tumor removal may be elected by the surgeon to reduce surgical time and preserve facial function. For patients with a growing tumor who are not surgical candidates for whatever reason, targeted radiation is a good alternative. Possible complications that may require further medical and/or surgical rehabilitation include: hearing loss, dizziness, facial weakness or paralysis, prolonged headaches, fluid leak from around the brain, and tumor recurrence. Many of these complications can occur after either microsurgery or radiation therapy. [1] Not on File [2] No current outpatient medications on file. No current facility-administered medications for this visit. [3] There is no problem list on file for this patient. [4] No past medical history on file. [5] No past surgical history on file. [6] No family history on file. [7] documented in this [facility] Work Phone: 1(193) 704-932308-20-2025 History of Present illness Narrative* William Barkley DO - 02/12/2025 1:15 PM EDT Images from the [...] @ 1:17 PM Additional Tests Keratometry K1 Glover K2 Glover Right 44.00 94 45.50 4 Left 44.00 [...] Normal Normal Refraction Wearing Rx Sphere Cylinder Glover Add Right +1.25 -2.50 096 +2.25 Left -0.75 -0.25 158 +2.25 Manifest Refraction Sphere Cylinder Glover Right +1.25 -2.50 090 Left -0.50 -1.50 [...] laser capsulotomy, they are to notify their brush maker promptly if they have a significant change in symptoms, such as flashes of light (photopsia), an increase in floaters, loss of visual field or decrease in visual acuity. documented in this [facility]08-12-2025 History of Present illness Narrative* Clifford Espinoza MD - 02/04/2025 9:00 AM EDT Subjective Patient ID: Billie Britofather is a 79 y.o. female who presents for Hearing Loss (Follow up MRI [facility]01/29/25) MRI reviewed and there is a 4.4x3mm [...] for evaluation and management documented in this encounterBoone [facility] [id number] History of Present illness Narrative* Clifford Espinoza MD - 01/14/2025 1:40 PM EDT Subjective [...] Recommend a CROS CAMERON. documented in this [facility]07-16-2025 History of Present illness Narrative* CLEOPATRA Parsons - 01/08/2025 1:00 PM EDT History: Pt was referred to ENT because of hearing loss. Pt reports difficulty hearing from her left ear, onset May 2024. Pt had Influenza A at the time. Pt has been treated for fluid in her left ear butthe hearing has not returned. Pt reports periodic [...] Ear: Type A tympanogram documented in this [facility]06-27-2025 History of Present illness Narrative* Funmilayo Odell MD - 12/20/2024 4:00 PM EDT COLORECTAL SURGERY December 20, 2024 Billie Yeboah 79 year old This consult was requested by Dr. Forbes and my final recommendations will be communicated to the requesting health care provider by way of the shared medical record for internal providers or letter via the [employer] for external providers. Chief Complaint: rectal prolapse History of Present Illness: Billie Yeboah is a 79 year old female presents today for follow up evaluation of hemorrhoids and rectal prolapse. She was previously seen in office in 2023 for hemorrhoids. Crohn's disease - followed by Dr. Forbes Sigmoidoscopy 06/21/24 - Dr. Forbes Scan on 11/29/2024 1:32 PM by Laci Mancuso: [facility] - Flexible Sigmoidoscopy w Biopsy, 06/21/24 Pathology [...] ALLERGIES Allergen Reactions Ciprofloxacin Rash, Unknown Nitrofurantoin Crow Wing* Other: See Comments, GI Upset Sulfamethoxazole-Tr* Other: See Comments, Rash FAMILY HISTORY Problem Relation Age of Onset Alzheimer's Disease Mother Heart Father age 80's Social History Tobacco Use Smoking status: Never Smokeless tobacco: Never Substance Use Topics Alcohol use: Never Drug use: Never Physical Exam: BP 156/84 (BP Site: Right Arm, BP Position: Sitting, BP Cuff Size: Regular Adult) Pulse 90 Temp36.4 C (97.5 F) SpO2 96% General Appearance: Well appearing, alert, in no acute distress, well-hydrated, well nourished. Anorectal: External exam reveals soft external hemorrhoids. Digital rectal exam reveals no gross blood or masses. Weakened tone and squeeze Flare Maker present: Yes, Sarah Z The sensitive examination was discussed with the Patient or Patient's Authorized Electrical Intern. Asapplicable, any other physician, advance practice provider, medical student, or other health professional student that will be observing or involved in the sensitive examination for educational or training purposes was discussed with the Patient or Authorized Electrical Intern. The Patient or Authorized Electrical Intern has agreed to proceed with the sensitive [...] Odell MD Colorectal Surgery documented in this [facility]Mem[facility] NoteHNO ID: [id number] Author: FUNMILAYO ODELL MD Service: ? Author Type: Physician Type: Progress Notes Filed: 12/20/2024 16:21 Note Text: COLORECTAL SURGERY December 20, 2024 Billie Yeboah 79 year old This consult was requested by Dr. Forbes and my final recommendations will be communicated to the requesting health care provider by way of the shared medical record for internal providers or letter via the [employer] [place] [employer] for external providers. Chief Complaint: rectal prolapse History of Present Illness: Billie Britofather is a 79 year old female presents today for follow up evaluation of hemorrhoids and rectal prolapse. She was previously seen in office in 2023 for hemorrhoids. Crohn's disease - followed by Dr. Forbes Sigmoidoscopy 06/21/24 - Dr. Forbes Scan on 11/29/2024 1:32 PM by Laci Mancuso: [facility] - Flexible Sigmoidoscopy w Biopsy, 06/21/24 Pathology [...] ALLERGIES Allergen Reactions Ciprofloxacin Rash, Unknown Nitrofurantoin Crow Wing* Other: See Comments, GI Upset Sulfamethoxazole-Tr* Other: [...] blood or masses. Weakened tone and squeeze Flare Maker present: Yes, Sarah Z The sensitive examination was discussed with the Patient or Patient's Authorized Electrical Intern. As applicable, any other physician, advance practice provider, medical student, or other health professional student that will be observing or involved in the sensitive examination for educational or training purposes was discussed with the Patient or Authorized Electrical Intern. The Patient or Authorized Electrical Intern has agreed to proceed with the sensitive [...] of treatment plan: nyla Odell [facility] Evaluation note* Diagnosis Onset Date Resolution Status Admit Date BRBPR (bright red blood per rectum) acuteFebruary 2024 1:39pmHemorrhoidsacuteFebruary 2024 1:39pm Irritable bowel syndrome with constipationacuteFebruary 2024 1:39pm Segmental colitis associated with diverticulosisacuteFebruary 2024 1:39pm [facility] Work Phone: 1(212) 765-146112-05-2024 Evaluation note* Diagnosis Onset Date Resolution Status Admit Date Acute Crohn's disease acuteDecember 2023 2:34pm [facility] Work Phone: 1(864) 133-864412-05-2024 Evaluation note* Diagnosis Onset Date Resolution Status Admit Date Acute Crohn's disease acuteDecember 2023 2:34pmAcute Crohn's diseaseacuteFebruary 2024 1:39pm [facility] Work Phone: 1(661) 636-704009-24-2024 NoteHNO ID: [id number] Author: JULIANA NAVARRETE APRN.SHAPER SETTER Service: Anesthesiology Author Type: Nurse House Visitor Type: Anesthesia Procedure Notes Filed: 03/19/2024 08:01 Note Text: ANESTHESIOLOGY PROCEDURE NOTE Airway General Information Procedure Start Time/Medication Administration: 03/19/2024 7:43 AM Procedure End Time: 03/19/2024 7:04 AM Patient location during procedure: OR Staffing SHAPER SETTER: Juliana Navarrete APRN.SHAPER SETTER Performed by: SHAPER SETTER Indications and Patient Condition Indications for airway [...] 1 Airway not difficult SIGNATURE: Juliana Navarrete APRN.SHAPER SETTER PATIENT NAME: Billie Yeboah DATE: March 19, 2024 TIME: 8:01 AM CSN: [id number] History and physical note* Zaida Hernandez PA-C [...] has never had a prior EKG at [facility] before, but has at either [facility] or [facility]. 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 On daily Etodolac and has Tramadol [...] 35 kg/m^2 Non-male patient STOP-Bang Score: 1 [id number] Score: [id number] Score: 0 ANESTHESIA FINDINGS: Intubation History: No [...] mg tablet ECG COMPLETE Faxed release to [facility] 02/28/2024 for Last EKG, need for [...] fevers. Neuro: No history of TIA's, stroke, REPRODUCTION PRODUCTION MANAGER tumor, impaired sensorium, hemiplegia, paraplegia or quadraplegia. [...] ALLERGIES Allergen Reactions Ciprofloxacin Rash, Unknown Nitrofurantoin Crow Wing* Other: See Comments, GI Upset Sulfamethoxazole-Tr* Other: [...] DATE: 02/28/2024 TIME: 2:26 PM PAGER/CONTACT #: [facility]09-04-[facility] History and physical note* Zaida Hernandez [...] has never had a prior EKG at [facility] before, but has at either [facility] or [facility]. 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 On daily Etodolac and has Tramadol [...] 35 kg/m^2 Non-male patient STOP-Bang Score: 1 [id number] Score: [id number] Score: 0 ANESTHESIA FINDINGS: Intubation History: No [...] mg tablet ECG COMPLETE Faxed release to [facility] 02/28/2024 for Last EKG, need for [...] fevers. Neuro: No history of TIA's, stroke, REPRODUCTION PRODUCTION MANAGER tumor, impaired sensorium, hemiplegia, paraplegia or quadraplegia. [...] ALLERGIES Allergen Reactions Ciprofloxacin Rash, Unknown Nitrofurantoin Crow Wing* Other: See Comments, GI Upset Sulfamethoxazole-Tr* Other: [...] 2:26 PM PAGER/CONTACT #: documented in this encounterMem[facility]09-03-2024 Instructions* Patient Instructions* Zaida Hernandez PA-C [...] at this surgery center: [facility]: [phone] --[id number] [place] [address]. Please enter through the entrance closest to [...] Procedures: - YOU MUST HAVE A RESPONSIBLE EXECUTIVE BUSINESS COACH TAKE YOU HOME. A FORMAL WEAR RENTAL CLERK OR PROBATE JUDGE CANNOT BE MADE A RESPONSIBLE EXECUTIVE BUSINESS COACH. - We recommend that a responsible person [...] Advance Directive, please fax a copy to [phone] or email to for it to be [...] day. Zaida Hernandez PA-C documented in this encounterMem[facility]08-30-[facility]24 History of Present illness Narrative* Funmilayo [...] ALLERGIES Allergen Reactions Ciprofloxacin Rash, Unknown Nitrofurantoin Crow [place]* Other: See Comments, GI Upset Sulfamethoxazole-Tr* Other: [...] exam reveals no gross blood or masses Flare Maker present: Yes, Sarah Z Anoscopy: The patient [...] Odell MD Colorectal Surgery documented in this encounterMem[facility]08-30-2024 NoteHNO ID: [id number] Author: FUNMILAYO ODELL MD Service: ? Author [...] ALLERGIES Allergen Reactions Ciprofloxacin Rash, Unknown Nitrofurantoin Crow Wing* Other: See Comments, GI Upset Sulfamethoxazole-Tr* Other: [...] exam reveals no gross blood or masses Flare Maker present: Yes, Sarah Z Anoscopy: The patient [...] of treatment plan: nyla Odell MD [facility]05-10-2024 History of Present illness Narrative* Funmilayo Odell MD - 11/03/2023 2:40 PM EDT COLORECTAL SURGERY November 03, 2023 Billie Goodther 78 year old This consult was requested by Dr. Forbes and my final recommendations will be communicated to the requesting health care provider by way of the shared medical record for internal providers or letter via the [employer] for external providers. Chief Complaint: [...] ALLERGIES Allergen Reactions Ciprofloxacin Rash, Unknown Nitrofurantoin Crow Wing* Other: See Comments, GI Upset Sulfamethoxazole-Tr* Other: [...] has a weak squeeze and discoordinated push Flare Maker present: Yes, Sarah Z Anoscopy: The patient [...] Odell MD Colorectal Surgery documented in this encounterMem[facility]05-10-2024 Nurse Note* Shelly Bingham OCCA - [...] in color Wound: Temperature: No Drains: No [facility]05-10-2024 Nurse Note* Shelly Bingham OCCA - [...] Temperature: No Drains: No documented in this encounterMem[facility]04-17-2024 Miscellaneous Notes* Telephone Encounter - Laci Mancuso - 10/11/2023 2:15 PM EDT Appointment with Dr. Odell is scheduled. * Telephone Encounter - Laci Mancuso - 10/11/2023 10:04 AM EDT Referral Scanned in for Dr. Odell, called pt and LVM, awaiting call back to schedule. documented in this encounterMem[facility]10-16-2023 Evaluation note* Encounter Date Diagnosis Assessment Notes Treatment Notes Treatment Clinical Notes Mar, IBS (irritable bowel syndrome) ( ICD-10 - K58.9) [employer] Other 07-12-2023 Evaluation note* Encounter Date Diagnosis Assessment Notes Treatment Notes Treatment Clinical Notes Dec, Primary osteoarthrit is of first carpometacarpal joint of left hand (ICD-10 - M18.12) Progress as tolerated Discussed DIP fusions Dec,Trigger ring finger of left hand (ICD-10 - M65.342) Dec,Left hand pain (ICD-10 - M79.642) [employer] Other 06-14-2023 Evaluation note* Encounter Date Diagnosis Assessment Notes Treatment Notes Treatment Clinical Notes Nov, Primary osteoarthrit is of first carpometacarpal joint of left hand (ICD-10 - M18.12) Extensive discussion about current condition and treatment options available. Patient was prepped and cortisone was injected into the left thumb CMC joint under sterile conditions. Patient tolerated well with no adverse reactions. Activity as tolerated. Nov,Trigger ring finger of left hand (ICD-10 - M65.342)This appears to trigger finger. We discussed the cause of this condition and the treatment options.We discussed stretching of the finger as well as massage of the palmar MCP region. We discussed theuse of cortisone injection into the palmar aspect of the hand at the trigger site can be helpful inrelieving painful symptoms. We also discussed the option of surgical release which can eliminate the problem. Patient was prepped and cortisone was injected into the left ring finger tendon sheath under sterile conditions. Patient tolerated well with no adverse reactions. Nov,Left hand pain (ICD-10 - M79.642) [employer] Other 05-04-2023 History of Present illness Narrative* Funmilayo Odell MD - 10/27/2022 2:00 PM EDT COLORECTAL SURGERY October 27, 2022 Billie Yeboah 77 year old This consult was requested by Dr. Manoj Forbes and my final recommendations will be communicated to the requesting health care provider by way of the shared medical record for internal providers or letter via the [employer] for external providers. Chief Complaint: [...] exam reveals no gross blood or masses Flare Maker present: Yes, Maribell Joiner Anoscopy: The patient [...] Odell MD Colorectal Surgery documented in this encounterMem[facility]05-04-2023 Nurse Note* Maribell Joiner RN - [...] Temperature: No Drains: No documented in this encounterMem[facility]03-30-2023 Evaluation note* Encounter Date Diagnosis Assessment Notes Treatment Notes Treatment Clinical Notes Aug, Hemorrhoids (ICD-10 - K64.9) [employer] Other 03-29-2023 Procedure [facility]02-09-2023 Evaluation note* Encounter Date Diagnosis Assessment Notes Treatment Notes Treatment Clinical Notes Jul, IBS (irritable bowel syndrome) ( ICD-10 - K58.9) [employer] Other 01-12-2023 NotePROCEDURE: XR HAND RT MIN [...] Electronically authenticated by: VIDYA CHAUDHARY Date: 2022-07-07 12:06[facility]10-10-2022 Evaluation note* Encounter Date Diagnosis Assessment Notes Treatment Notes Treatment Clinical Notes Mar, IBS (irritable bowel syndrome) ( ICD-10 - K58.9) [employer] Other 08-10-2022 Evaluation note* Encounter Date Diagnosis Assessment Notes Treatment Notes Treatment Clinical Notes Jan, Primary osteoarthritis of right knee (ICD-10 - M17.11) Jan,History of total right knee replacement (ICD-10 - Z96.651) Jan,ge-related osteoporosis without current pathological fracture (ICD- 10 - M81.0) Jan,ther usp (current) drug therapy (ICD-10 - Z79.899) Jan,Trochanteric bursitis of right hip (ICD-10 - M70.61) Jan[place] [place] [facility] [place] Overall I think she is doing very well. The stitch that popped up in the proximal aspect the incision was removed. Patient tolerated this well. Patient may continue activities as tolerated. Recommended continuing physical therapy not only for her knee but also for greater trochanteric bursitis. Continue taking iixx-qza-sawaoup anti-inflammatories as needed for assistance with swelling and pain associated with the operative extremity. I have also prescribed her some iron and vitamin C in theevent that she did have some low postoperative hemoglobin. Follow-up in 6 weeks for repeat examination and long standing x-rays. [employer] Other 07-13-2022 Evaluation note* Encounter Date Diagnosis Assessment Notes Treatment Notes Treatment Clinical Notes Dec, Primary osteoarthritis of right knee (ICD-10 - M17.11) Dec,History of total right knee replacement (ICD-10 - Z96.651) Dec,ge-related osteoporosis without current pathological fracture (ICD- 10 - M81.0) Dec,ther usp (current) drug therapy (ICD-10 - Z79.899) Dec,[facility] [place] [place] [facility] [place] Doing well. Zipline was removed. [...] 3 view x-rays of the right knee. [employer] Other 06-17-2022 Evaluation note* Encounter Date Diagnosis Assessment Notes Treatment Notes Treatment Clinical Notes Nov, Other Prolonged Services 1. H and P date: 12/01/2021 2. Diagnosis: Right knee primary osteoarthritis 3. Counseling: Patient received counseling at their history and physical 4. Coordination of care: The patient was discussed at today's total joints meeting with anesthesia,OR staff, and implant reps in an effort to coordinate the patient's care during the perioperative period. The anesthesiologist was involved in discussions regarding the patient's pain management suchas regional blocks, anesthesia plans the day of surgery such as general versus spinal, as well as afinal review of lab work to ensure the patient could proceed with surgery safely. The volunteer manager was vital for surgery timing and scheduling purposes. The implant rep was also available for necessarydiscussions regarding preoperative templates that were created on preoperative x-rays to ensure the appropriate implants and sizes of implants would be available the day of surgery. The patient's discharge plan was also discussed and the final decision was confirmed. 5. Medication Changes: None 6. Lab Tests: The patient's screening tests including albumin levels, vitamin D levels, hemoglobin,hemoglobin A1c, cotinine serum level, and MRSA nasal [...] plans. Prolonged services time spent: 32 minutes [employer] Other 06-17-2022 Evaluation note* Encounter Date Diagnosis Assessment Notes Treatment Notes Treatment Clinical Notes Nov, Primary osteoarthritis of right knee (ICD-10 - M17.11) [employer] Other 06-08-2022 Evaluation note* Encounter Date Diagnosis Assessment Notes Treatment Notes Treatment Clinical Notes Nov, Age-related osteopor osis without current pathological fracture (ICD-10 - M81.0) Nov,rimary osteoarthritis of right knee (ICD-10 - M17.11) Nov,ther usp (current) drug therapy (ICD-10 - Z79.899) Nov,ther1. Right TKA Home Medications - DVT prophylaxis: Aspirin - NSAID: Celebrex - Disposition: Same-day discharge-patient will be at home with her and he will be able to help her throughout the postoperative process. He has had both of his knees replaced and the patient's had her left knee replaced previously. Joints Meeting Checklist - Pharmacy: [facility] med to bed - Approach/Technique: CLEMENCIA - [...] to include: activity modification, physical therapy, oral anti-inflammatories, and intra- articular steroid injections. 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 Maldonado. All questions were answered [...] elected to proceed with the above surgery. 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 Right TKA - DVT prophylaxis: Aspirin - Antibiotics: Ancef - NSAID: Celebrex - Implants: Persona - Disposition: Same-day discharge-she lives at home with her and she tells me that he wouldbe available to help her in the immediate [...] all conservative treatment options to include: oral anti-inflammatories, intra-articular steroid injections, physical therapy, and assistive devices. We will move forward with the definitive treatment option and schedule the patient for the above mentioned procedureafter we have reviewed screening labs and clearances. Patient understands abnormal screening labs or absent clearances could delay their surgery. [employer] Other 02-18-2022 Evaluation note* Encounter Date Diagnosis Assessment Notes Treatment Notes Treatment Clinical Notes Jul, History of total right hip arthr oplasty (ICD-10 - Z96.641) Jul,rimary osteoarthritis of right knee (ICD-10 - M17.11) [...] tolerated the injection well without adverse reaction. Jul,2Other 1. We had a long discussion with the patient today concerning their right knee osteoarthritis. The radiographs do show osteoarthritis of the knee. At this time the patient would like to avoid surgical intervention. We did discuss the risk and benefits of surgical versus nonoperative management. Thepatient would like to proceed with nonoperative management. [...] injection well. 6. Follow up 3 months [employer] Other 10-26-2021 Evaluation note* Encounter Date Diagnosis Assessment Notes Treatment Notes Treatment Clinical Notes Mar, IBS (irritable bowel syndrome) ( ICD-10 - K58.9) Colonoscopy Follow up in 1 year Mar,pecial screening for malignant neoplasms, colon (ICD-10 - Z12.11) [employer] Other Evaluation noteNo assessment information available [facility] Work Phone: Evaluation note* Diagnosis Hemorrhoids, unspecified hemorrhoid type- Primary documented in this encounter [facility]* Diagnosis BRBPR (bright red blood per rectum)- Primary Hemorrhage of rectum and anus Hemorrhoids, unspecified hemorrhoid type Pelvic floor dysfunction Pelvic muscle wasting [facility]* Diagnosis Hemorrhoids, unspecified hemorrhoid type- Primary [facility] in this [facility]* Diagnosis Preoperative examination- Primary Preoperative examination, [...] anus Rectal prolapse documented in this encounter [facility]* Diagnosis Onset Date Resolution Status Admit Date BRBPR (bright red blood per rectum) acuteJune 2024 9:41amFecal incontinenceacuteJune 2024 9:41am HemorrhoidsacuteJune 2024 9:41amSegmental colitis associated with diverticulosisacuteJune 2024 9:41am [facility] Work Phone: Evaluation note* Diagnosis Rectal prolapse- Primary Pelvic floor dysfunction Pelvic muscle wasting [facility] Diagnosis Asymmetrical sensorineural hearing loss- Primary Sensorineural hearing loss, asymmetrical Tinnitus, left Impaired auditory discrimination, left documented in this encounter [facility] HealthcareEvaluation note* Diagnosis 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- Primary documented in this encounter [facility] HealthcareEvaluation note* Diagnosis 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 documented in this encounter [facility] HealthcareEvaluation note* Diagnosis Left posterior capsular opacification- Primary Unspecified after-cataract documented in this encounter [facility] HealthcareEvaluation note* Diagnosis Asymmetrical sensorineural hearing loss- Primary Sensorineural hearing loss, asymmetrical 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 nerves documented in this encounter [facility] Work Phone: History and physical note Author Manoj Forbes [facility] September 21, 2022 10:51amNote Date/TimeMarch 2022 10:51[place] [address] Gastroenterology H&P Signed Patient: Billie Yeboah MR#: [id number] : 1945 Acct:[id number] Age/Sex: 77 / F Adm Date: 3 Loc: Room: Type: [facility] Attending Dr: aMnoj Forbes MD Copies to: MD Gisella Rider MD~ Date of Service: 09/21/2022 HISTORY & PHYSICAL: Patient's history with special attention to the cardiovascular, pulmonary systems and the current problem was reviewed with the patient immediately prior to the procedure. Present medications and doses reviewed in the EMR. Allergies and pertinent laboratory tests were also re viewedat this time in the EMR. The physical [...] signed by Manoj Forbes MD> 09/21/22 1051 [facility] Work Phone: Hiswwlv general Narrative - Reported* Type Description Date Surgical History THYROID Surgical HistoryLEFT KNEE REPLAEMENTSurgical HistoryHYSTERECTOMYSurgical History BILATERAL FOOT SURGERYSurgical HistoryHIP REPLACEMENT RIGHTHospitalization HistoryStomach pains 1 night05/2013 [employer] Other [facility] general Narrative - Reported* Type Description Date Medical History Arthritis Medical HistoryIBSMedical Historythyroid diseaseMedical Historyhigh cholesterol Surgical HistoryTHYROIDSurgical HistoryLEFT KNEE REPLAEMENTSurgical History HYSTERECTOMYSurgical HistoryBILATERAL FOOT SURGERYSurgical HistoryHIP REPLACEMENT RIGHTHospitalization HistoryStomach pains 1 night05/2013 [employer] Other Hospital Discharge instructions Additional Instructions DISCHARGE [...] problems. -Follow up with PCP. -Office number [phone].[facility] Work Phone: Hospital Discharge instructionsAmbulatory Orders* Referral to Colorectal Surgery Time Frame: 11/26/24, Location: None Selected [facility] Work Phone: Reason for referral (narrative)* Reason *FU 09/30 Consult for hemorrhoids. Referral faxed to Dr. Odell Diagnosis 1 Hemorrhoids (K64.9) Referral Organization [facility] Referring Provider First Name Manoj Referring Provider Last Name Leidy Referring Provider Specialty Gastroenter ology Referred Organization [facility] Referred Provider FUNMILAYO ODELL Ref[address] Address [address] [place], [place],[address] Referred Provider Specialty Colorectal S urgery Referral Priority Routine General Notes De GuzmanJuliana 0 09/23/2022 10:05:39 AM > Referral faxed by office. [employer] Other Reason for referral (narrative)* Outpatient Procedure (Routine) - New RequestSpecialtyDiagnoses / ProceduresReferred By Contact [facility] Diagnoses Preoperative examination Tachycardia Procedures ECG COMPLETE ECG ROUTINE ECG W/LEAST 12 LDS W/I&R Zaida Hernandez PA-C [address] [place] [address] [facility] [address] [place] [address] Referral IDStatusReasonStart DateExpiration DateVisits RequestedVisits [id number] Request Auto-Generated Referral [facility] Chief Complaint and Reason for Visit [...] Date BRBPR (bright red blood per rectum) Febr uary 2024 1:39pm Hemorrhoids August 21, 2024 [...] Date/T chalo father Heart disease Unknown Not SpecifiedAlzheimer's dementiaUnknownfamily memberMalignant neoplasm of colon UnknowngrandparentMalignant neoplasm of colonUnknown Relationship Condition Age at Onset Recorded Date/T chalo father Heart disease Unknown motherAlzheimer's dementiaUnknownfamily memberMalignant neoplasm of colonUnknown grandparentMalignant neoplasm of colonUnknownmotherHypertensionUnknown Relationship Condition Age at Onset Recorded Date/T chalo father Heart disease Unknown motherAlzheimer's dementiaUnknownHypertensionUnknownfamily memberMalignant neoplasm of colonUnknownmaternal grandfatherMalignant neoplasm of colonUnknown Advance Directives No Advanced Directives Records Found Advance Directive Response Recorded Date/ Time Advance Directives Yes October 02 10:10am Advance Directive Response Recorded Date/ Time Advance Directives Yes October 02 9:10am Summary Purpose Reason for Referral SpecialtyDiagnoses / ProceduresReferred By ContactReferred To ContactRE[facility] Diagnoses Pelvic floor dysfunction Procedures CONSULT TO PHYSICAL THERAPY PHYSICAL THERAPY EVALUATION HIGH COMPLEX [address] [place] [address] [address] [id number] [facility] [address] [place] [address] Referral IDStatusReasonStart DateExpiration DateVisits RequestedVisits [id number] Review PCP Requested Referral Auto-Generated Referral Additional Source Comments REASON FOR VISIT (unrecogniz ed section and content) ReasonCommentsNew PatientConsult for hemorrhoidsReasonCommentsReceived Outside Medical RecordsAppointmentReasonCommentsRectal BleedingHemorrhoidsReasonComments New PatientHemorrhoidsRectal BleedingReasonCommentsRectal ProlapseNewReason CommentsHearing LossAudio 01/08/25ReasonCommentsHearing LossFollow up MRI [facility] 01/29/25ReasonCommentsYAGBlurred VisionReasonCommentsFollow-upSpecialtyDiagnoses / ProceduresReferred By ContactReferred To Contact Diagnoses Vestibular schwannoma (Multi) Procedures HI OFFICE/OUTPATIENT NEW HIGH MDM 60 MINUTES [id number] (SNOMED CT) - AMB REFERRAL TO ENT Clifford Espinoza MD [address] [facility] [address] [place] [address] Phone: tel: [place]: [place] [address] [place] [address] Phone: tel: fax: Referral IDStatusReasonStart DateExpiration DateVisits RequestedVisits [id number] Request/ Care Teams (unrecognized sec tion and content) Team Status: Inactive Member Role Status Dates Gisella Chamorro MD Primary Care Provider Active Delmy Gómez II ProviderActive Team Status: Active Member Role Status Dates Gisella Chamorro MD Primary Care Provider Active Team Status: Inactive Member Role Status Dates Gisella Chamorro MD Primary Care Provider Active Delmy Rider ProviderActiveTeam MemberRelationshipSpecialty Start DateEnd Date Daryl Austin [address] [place] [address] PCP - General10/11/00 Team Status: Inactive Member Role Status Dates Gisella Chamorro MD Primary Care Provider Active Delmy Martin ProviderActiveTeam MemberRelationshipSpecialty Start DateEnd Date Daryl Austin [address] [place] [address] PCP - General10/11/00Team MemberRelationshipSpecialtyStart DateEnd Date Daryl Austin [address] [place] [address] PCP - General10/11/00Team MemberRelationshipSpecialtyStart DateEnd Date Daryl Austin [address] [place] [address] PCP - General10/11/00Team MemberRelationshipSpecialtyStart DateEnd Date Daryl Austin [address] [place] [address] PCP - General Gisella Chamorro MD [address] [place], [place] [id number] [facility] 02/29/24 Team Status: Inactive Member Role Status Dates Gisella Chamorro MD Primary Care Provider Active Start: April 01, 2024 End: April 01Delmy Suggs ProviderActiveStart: April 01, 2024 End: April 01, 2024 Team Status: Inactive Member Role Status Dates Gisella Chamorro MD Primary Care Provider Active Start: May 30, 2024 End: May 30Delmy Suggs ProviderActiveStart: May 30, 2024 End: May 30, 2024 Team Status: Inactive Member Role Status Dates Gisella Chamorro MD Primary Care Provider Active Start: June 21, 2024 End: June 21Delmy Suggs ProviderActiveStart: June 21, 2024 End: June 21, 2024 Team Status: Active Member Role Status Dates Gisella Chamorro MD Primary Care Provider Active Start: June 21, 2024 Delmy Rider Provider, Other ProviderActiveStart: June 21, 2024 Team Status: Active Member Role Status Chaitanya Chamorro MD Primary Care Provider Active Start: June 25, 2024 Janessa Aparicio ProviderActiveStart: June 25, 2024 Team Status: Inactive Member Role Status Chaitanya Chamorro MD Primary Care Provider Active Start: July 22, 2024 End: July 22, 2024Medina Spears NP-CAttenshanae ProviderActiveStart: July 22, 2024 End: July 22, 2024 Team Status: Inactive Member Role Status Chaitanya Chamorro MD Primary Care Provider Active Start: August 21, 2024 End: August 21Delmy Suggs ProviderActiveStart: August 21, 2024 End: August 21, 2024 Team Status: Inactive Member Role Status Chaitanya Chamorro MD Primary Care Provider Active Start: October 22, 2024 End: October 22, 2024Delmy Wu ProviderActiveStart: October 22, 2024 End: October 22, 2024 Team Status: Inactive Member Role Status Chaitanya Chamorro MD Primary Care Provider Active Start: November 26, 2024 End: November 26Delmy Suggs ProviderActiveStart: November 26, 2024 End: November 26, 2024Team MemberRelationshipSpecialtyStart DateEnd Date Gisella Chamorro MD [address] [place] [address] PCP - [facility]02/29/24Team MemberRelationshipSpecialtyStart DateEnd Date Gisella Chamorro MD [address] [place] [address] PCP - [facility] Medicine10/30/24Team MemberRelationshipSpecialtyStart DateEnd Date Gisella Chamorro MD [address] [place] [address] PCP - GeneralFamily Medicine10/30/24Team MemberRelationshipSpecialtyStart DateEnd Date Gisella Chamorro MD [address] [facility] [place] [address] PCP - GeneralFamily Medicine10/30/24Team MemberRelationshipSpecialtyStart DateEnd Date Gisella Chamorro MD [address] [facility] [place] [address] PCP - GeneralFamily Medicine10/30/24Team MemberRelationshipSpecialtyStart DateEnd Date Gisella Chamorro MD [address] [facility] [place] [address] PCP - GeneralFamily Medicine10/30/24Team MemberRelationshipSpecialtyStart DateEnd Date Gisella Chamorro MD [address] [facility] [place] [address] PCP - GeneralFamily Medicine10/30/24Team MemberRelationshipSpecialtyStart DateEnd Date Gisella Chamorro MD [address] [facility] [place] [address] PCP - GeneralFamily Medicine10/30/24Team MemberRelationshipSpecialtyStart DateEnd Date Gisella Chamorro MD [address] [place] [address] PCP - GeneralFamily Medicine02/12/25Team MemberRelationshipSpecialtyStart DateEnd Date Gisella Chamorro MD [address] [facility] [place] [address] PCP - GeneralFamily Medicine02/12/25 INFORMATION SOURCE (unrecogn ized section and content) DATE CREATED AUTHOR 08/30/2022 [facility] DATE CREATED AUTHOR AUTHOR'S ORGANIZ ATION 03/21/2024 [facility] DATE CREATED AUTHOR AUTHOR'S ORGANIZ ATION 10/31/2024 [facility] DATE CREATED AUTHOR AUTHOR'S ORGANIZ ATION 12/22/2024 [facility] DATE CREATED AUTHOR AUTHOR'S ORGANIZ ATION 02/14/2025 [facility] EPIC DATE CREATED AUTHOR AUTHOR'S ORGANIZ ATION 03/09/2025 [facility] DATE CREATED AUTHOR AUTHOR'S ORGANIZ ATION 03/09/2025 [facility] Source Comments (unrecognize d section and content) In the event this informatio n is protected by the Federal Confidentiality of Alcohol and Drug Abuse Patient Records regulations: The Federal rules restrict any use of the information to criminally investigate or prosecute any alcohol or drug abuse patient.[facility] HospitalIn the event this information is protected by the Federal Confidentiality of Alcohol and Drug Abuse Patient Records regulations: The Federal rules restrict any use of the information to criminally investigate or prosecute any alcohol or drug abuse patient.[facility] HospitalIn the event this information is protected by the Federal Confidentiality of Alcohol and Drug Abuse Patient Records regulations: The Federal rules restrict any use of the information to criminally investigate or prosecute any alcohol or drug abuse patient.[facility] HospitalIn the event this information is protected by the Federal Confidentiality of Alcohol and Drug Abuse Patient Records regulations: The Federal rules restrict any use of the information to criminally investigate or prosecute any alcohol or drug abuse patient.[facility] HospitalIn the event this information is protected by the Federal Confidentiality of Alcohol and Drug Abuse Patient Records regulations: The Federal rules restrict any use of the information to criminally investigate or prosecute any alcohol or drug abuse patient.[facility] HospitalIn the event this information is protected by the Federal Confidentiality of Alcohol and Drug Abuse Patient Records regulations: The Federal rules restrict any use of the information to criminally investigate or prosecute any alcohol or drug abuse patient.[facility] Goals (unrecognized section and content) Goals [...] BE BASED ON THE PRIMARY CLINICAL RECORDS. [facility]. provides no warranty or guarantee of the accuracy or completeness of information in this document.
[2025-05-20 10:47] LABS: Hematocrit 40.8 % (36.0-48.0); Hemoglobin 13.3 g/dL (12.0-16.0); Immature Granulocytes Abs Auto 0.01 10^3/uL (0.00-0.03); Immature Granulocytes Pct Auto 0.2 % (0.0-0.5); Lymphocytes Absolute Auto 0.8 10^3/uL (1.2-3.8); Mean Corpuscular HGB Conc 32.6 g/dL (29.9-35.2); Mean Corpuscular Hemoglobin 28.6 pg (26.7-34.0); Mean Corpuscular Volume 87.7 fL (81.0-99.0); Platelet Count 257 10^3/uL (150-450); Red Blood Count 4.65 10^6/uL (4.20-5.40); White Blood Count 4.2 10^3/uL (4.0-11.0)
[2025-05-20 11:08] LABS: Alanine Aminotransferase 27 U/L (14-59); Albumin Globulin Ratio 0.8; Albumin Level 3.2 g/dL (3.4-5.0); Alkaline Phosphatase 87 U/L (46-116); Anion Gap 9.7; Aspartate Amino Transferase 21 U/L (15-37); Blood Urea Nitrogen 9.0 mg/dL (7.0-18.0); Calcium 9.0 mg/dL (8.5-10.1); Carbon Dioxide 33.5 mmol/L (21.0-32.0); Chloride 104 mmol/L (98-107); Cholesterol 158 mg/dL (<=200); Estimated GFR (African America >60 (>=60 mL/min/1.73m^2); Estimated GFR (Non-African Ame >60 (>=60 mL/min/1.73m^2); Free T3 5.77 pg/mL (2.18-3.98); Globulin 3.8 g/dL; Glucose 103 mg/dL (74-106); HDL Cholesterol 58 mg/dL (40-60); Potassium 4.2 mmol/L (3.5-5.1); Sodium 143 mmol/L (136-145); Thyroid Stimulating Hormone 0.017 uIU/mL (0.358-3.740); Total Protein 7.0 g/dL (6.4-8.2); Triglycerides 110 mg/dL (<=150); VLDL CHOLESTEROL 22.0 mg/dL
[2025-05-20 11:27] LABS: Iron 66.0 ug/dL (50.0-170.0)
== END 2025-05-20 09:33 | disposition home or self-care (01) ==
LOC: LAB 09:36
PROVIDERS: PCP Family Medicine; Visit Provider Family Medicine
DX: R60.9 Edema, unspecified (principal); D64.9 Anemia, unspecified; G47.00 Insomnia, unspecified; E78.00 Pure hypercholesterolemia, unspecified; E03.9 Hypothyroidism, unspecified; R73.09 Other abnormal glucose; E55.9 Vitamin D deficiency, unspecified
CPT/HCPCS: 36415; 80053; 80061; 82306; 83036; 83540; 84436; 84443; 84481; 85025